=== PATIENT | female | born 1960 | race Caucasian/White ===

== ENCOUNTER 2023-01-21 10:09 | Outpatient (OUT) | payer OTHER, SELFPAY ==
--- NOTE | 2023-01-21 10:14 | CT_ITS ---
[address] [address] Patient Name: MALACHI FOSTER MRN: [id number] date: 1960 Sex: F Assigned Patient Location: CT Current Patient Location: CT Accession/Order Number: [id number] Exam Date: 01/21/2023 10:22 Report Date: 01/21/2023 11:35 At the request of: AGUILA LARA Procedure: CT lung screening low-dose EXAMINATION: CT lung screening low-dose HISTORY: Nicotine Dependence Cigarettes F17.219 COMPARISON: CT chest 01/16/2022 TECHNIQUE: Axial, Coronal, and Sagittal images were created without the administration of IV contrast material. Dose reduction techniques were achieved by using automated exposure control and/or adjustment of mA and/or kV according to patient size and/or use of iterative reconstruction technique. FINDINGS: LUNGS: Stable small focal area of stranding within lateral right lung apex favoring scarring. No suspicious nodules. Mild emphysematous changes bilaterally. PLEURA: No mass, effusion, or pneumothorax. VASCULATURE: No abnormality. CHESTER: No mass or pathologic adenopathy. MEDIASTINUM: No mass or pathologic adenopathy. CARDIAC: No enlargement, pericardial thickening, or significant calcification. AORTA: No aneurysm or dissection. CHEST WALL: No mass or axillary adenopathy BONES: No bone lesion or fracture. LIMITED ABDOMEN: No suspicious findings. Limited images of the upper abdomen. OTHER: Negative. CT/CT lung screening low-dose IMPRESSION: 1. Lung-RADS Category 1 Negative. No nodules and definitely benign nodules. Continue annual screening with LDCT in 12 months. Electronically authenticated by: GAMA MI Date: 01/21/2023 11:35
== END 2023-01-21 10:10 | disposition home or self-care (01) ==
LOC: CT 10:09
PROVIDERS: PCP Internal Medicine; Visit Provider Internal Medicine
DX: F17.219 Nicotine dependence, cigarettes, with unspecified nicotine-induced disorders (principal)
CPT/HCPCS: 71271

== ENCOUNTER 2023-05-16 21:10 | Outpatient (REF) | payer OTHER, SELFPAY ==
[2023-05-23 09:07] LABS: Age Gdln ACOG Testing Note (.); HPV Aptima Negative (Negative); IGP, Aptima HPV, rfx 16/18,45 Note (.)
== END 2023-05-16 21:11 | disposition home or self-care (01) ==
LOC: LAB 21:10
PROVIDERS: PCP Internal Medicine; Visit Provider Physician Assistant
DX: Z01.419 Encounter for gynecological examination (general) (routine) without abnormal findings (principal)
CPT/HCPCS: 87624; G0145

== ENCOUNTER 2023-05-26 14:21 | Outpatient (OUT) | payer OTHER, SELFPAY ==
--- NOTE | 2023-05-26 | MM_ITS ---
Patient Name: MALACHI FOSTER MR#: [id number] : 1960 Exam Date: 05/26/2023 Ordering Doctor: DR Adrian Florence . RADIOLOGY REPORT PROCEDURE: MM TOMOSYNTHESIS SCREENING BI COMPARISON: MG MAMM SCREEN 3D ARNOLDO CAD, 05/11/2022. MG MAMM SCREEN 3D ARNOLDO CAD, 04/28/2021. MG MAMM SCREEN ARNOLDO W CAD, 04/01/2020. MG MAMM ARNOLDO SCRN W CAD DIG, 03/26/2013. INDICATIONS: Screening for malignant neoplasm Calculator Name [facility] Breast Cancer Risk Assessment Tool 5 Year Breast Cancer Risk 1.70% Lifetime Breast Cancer Risk 7.40% Personal Breast Cancer No Personal Ovarian Cancer No Treatments None Family Cancers Sister with uterine cancer at age 68. LOCATION: [facility] BREAST COMPOSITION: Scattered areas fibroglandular density. FINDINGS: DIAGNOSTIC CATEGORY 1--NEGATIVE. RIGHT BREAST: No significant suspicious finding. No significant change has occurred. LEFT BREAST: No significant suspicious finding. No significant change has occurred. RECOMMENDATIONS: ROUTINE MAMMOGRAM AND CLINICAL EVALUATION IN 12 MONTHS. PLEASE NOTE: A NORMAL MAMMOGRAM DOES NOT EXCLUDE THE POSSIBILITY OF BREAST CANCER. A CLINICALLY SUSPICIOUS PALPABLE LUMP SHOULD BE BIOPSIED. Dictated by: Be Barber M.D. on 05/27/2023 at 13:58 Approved by: Be Barber M.D. on 05/27/2023 at 14:00
== END 2023-05-26 14:22 | disposition home or self-care (01) ==
LOC: MAMMO 14:21
PROVIDERS: PCP Internal Medicine; Visit Provider Obstetrics & Gynecology
DX: Z12.31 Encounter for screening mammogram for malignant neoplasm of breast (principal); Z80.8 Family history of malignant neoplasm of other organs or systems
CPT/HCPCS: 77063; 77067

== ENCOUNTER 2024-01-17 08:52 | Emergency (ER) | payer OTHER, SELFPAY ==
[2024-01-17] VITALS (19 sets, daily range): BP systolic 126–184; BP diastolic 73–93; PULSE 62–92; TEMP 36.9; O2SAT 91–96; BMI 26.5
--- NOTE | 2024-01-17 09:13 | XR_ITS ---
The [address] [address] Patient Name: MALACHI FOSTER MRN: [id number] date: 1960 Sex: F Assigned Patient Location: ER Current Patient Location: ER Accession/Order Number: [id number] Exam Date: 01/17/2024 09:33 Report Date: 01/17/2024 09:58 At the request of: YING STEELE Procedure: XR chest 1V EXAMINATION: XR chest 1V HISTORY: cp ; chest tightness, hypertension COMPARISON: XR chest 05/11/2022, CT chest 01/13/2023 FINDINGS: LUNGS: Mild haziness within left lung base compatible with known prominent pericardial fat pad. No acute infiltrates or mass. VASCULATURE: No increased pulmonary vasculature. PLEURA: No pneumothorax, effusion, or pleural thickening. CARDIAC: No cardiomegaly or cardiac silhouette abnormality. MEDIASTINUM: No visible mass or adenopathy. BONES: No fracture or visible bone lesion. OTHER: Negative. XR/XR chest 1V IMPRESSION: 1. No acute cardiopulmonary process. Stable chest. Electronically authenticated by: GAMA MI Date: 01/17/2024 09:58
--- NOTE | 2024-01-17 09:13 | ECG_ITS ---
The [facility] [place] Test Date: 2024-01-17 Pat Name: MALACHI FOSTER Department: Room: - Gender: Female Stem Maker: : 1960 Requested By: Clint Veras Order Number: [id number] Reading MD: JANETH CALLE Measurements Intervals [place] Rate: 77 P: 68 DE: 166 QRS: 0 QRSD: 64 T: 61 QT: 382 QTc: 414 Interpretive Statements 1100 Sinus rhythm 8102 Low QRS voltage in chest leads Non-Specific T wave inversion in aVL 9150 abnormal ECG Compared to ECG 04/04/2020 09:56:03 Myocardial infarct finding now present Electronically Signed On 01-18-2024 13:19:36 EDT by JANETH CALLE
--- OUTSIDE RECORDS SUMMARY | 2024-01-17 09:28 | XMS_ITS | CCD ---
Author Organization [facility] Care Team Providers Care Residential Living Assistant Name Role Phone TAMIA TORRES Unavailable Unavailable TAMIA TORRES Unavailable Unavailable Leon Kohli Admitting Unavailable Leon Kohli Attending Unavailable Marissa, Clint Primary Care Unavailable Leon Kohli Unavailable David Lemus Unavailable Clint Veras Unavailable MARISSA, DR BONE Consulting Unavailable MARISSA, DR BONE Primary Care Unavailable BALL, DR BONE Attending Unavailable MARISSA, DR BONE Admitting Unavailable KARASIK ., DR SCHMID Consulting Unavailabl e BALL, DR BONE Primary Care Unavailable KARASIK ., DR SCHMID Attending Unavailabl e KARASIK ., DR SCHMID Admitting Unavailabl e BALL, DR BONE Consulting Unavailable MARISSA, DR BONE Primary Care Unavailable MARISSA, DR BONE Attending Unavailable MARISSA, DR BONE Admitting Unavailable ZIEBANDREA, DR GAMA Hinson Consulting Unavailable MARISSA, DR BONE Consulting Unavailable MARISSA, DR BONE Primary Care Unavailable MARISSA, DR BONE Attending Unavailable MARISSA, DR BONE Admitting Unavailable ZIEBER, DR GAMA Hinson Consulting Unavailable MARISSA, DR BONE Primary Care Unavailable SAMSA ., AGUILA Attending Unavailable SAMSA ., AGUILA Admitting Unavailable SAMSA ., AGUILA Consulting Unavailable KARASIK ., DR SCHMID Consulting Unavailabl e BALL, DR BONE Primary Care Unavailable KARASIK ., DR SCHMID Attending Unavailabl e KARASIK ., DR SCHMID Admitting Unavailabl e ZIEBER, DR GAMA Hinson Consulting Unavailable MARISSA, DR BONE Primary Care Unavailable SAMSA ., AGUILA Attending Unavailable SAMSA ., AGUILA Admitting Unavailable SAMSA ., AGUILA Consulting Unavailable MARISSA, DR BONE Primary Care Unavailable MARISSA, DR BONE Attending Unavailable MARISSA, DR BONE Admitting Unavailable MARISSA, DR BONE Primary Care Unavailable MARISSA, DR BONE Attending Unavailable MARISSA, DR BONE Admitting Unavailable WEST, DR ELMER Parrish Consulting Unavailable MARISSA, DR BONE Primary Care Unavailable SAMSA ., AGUILA Attending Unavailable SAMSA ., AGUILA Admitting Unavailable SAMSA ., AGUILA Consulting Unavailable BALL, DR BONE Consulting Unavailable BALL, DR BONE Primary Care Unavailable BALL, DR BONE Attending Unavailable BALL, DR BONE Admitting Unavailable YADAV, ZIGGY Consulting Unavailable NEFCY, GIN Consulting Unavailable BALL, DR BONE Consulting Unavailable BALL, DR BONE Primary Care Unavailable BALL, DR BONE Attending Unavailable BALL, DR BONE Admitting Unavailable WEST, DR ELMER Parrish Consulting Unavailable KARASIK ., DR SCHMID Consulting Unavailabl e BALL, DR BONE Primary Care Unavailable KARASIK ., DR SCHMID Attending Unavailabl e KARASIK ., DR SCHMID Admitting Unavailabl e WEST, DR ELMER Parrish Consulting Unavailable ZIEBER, DR GAMA Hinson Consulting Unavailable NIMCO TRIMBLE Attending Unavailable MIKAL LEMUS Attending Unavailable CHAY ALEJANDRE Attending Unavailable MIKAL LEMUS Referring Unavailable Allergies Allergy Classification Reported Allergen(s) Allergy Type Date of Onset Reaction(s) Facility (1 source) buPROPion; Translations: [BUPROPION HCL] Drug Allergy [facility] Repository (3 sources) caffeine; Translations: [CAFFEINE] Drug Allergy [facility], Unknown, Unknown Reaction [facility] Repository (1 source) cyclobenzaprine; Translations: [CYCLOBENZAPRINE HCL] Drug Allergy 018 [facility] Repository (1 source) PROPOXYPHENE N-ACETAMINOPHEN; Translations: [PROPOXYPHENE N-ACETAMINOPHEN] Propensity to adverse reactions to drug (disorder) [facility] Repository (8 sources) cyclobenzaprine; Translations: [Flexeril] Drug Allergy Unknown [facility] Repository (2 sources) buPROPion Drug Allergy 016 WELLBUTRIN [facility] Repository (1 source) Darvocet-N 100 Drug allergy (disorder) [facility] Repository (2 sources) buPROPion Drug Allergy 024 Unknown, [facility] (2 sources) cyclobenzaprine Drug Allergy 017 CYCLOBENZAPRINE HCL Comment:Freetext Needs Updated., Hypertension, Comment:[facility] (1 source) Propoxyphene Drug Allergy 018 DARVOCET [employer] Other (1 source) Allergies Reconciled Propensity to adverse reactions Unknown [employer] Other (1 source) patient allergy list reviewed by nurse or physicia Propensity to adverse reactions 019 Comment:Done [employer] Other (1 source) Flexeril *MUSCULOSKELETAL THERAPY AGENTS* Propensity to adverse reactions Comment:Rash [employer] Other (1 source) Darvocet A500 *ANALGESICS - OPIOID* Propensity to adverse reactions Unknown [employer] Other (1 source) Acetaminophen Drug Allergy 024 Itching [facility] (1 source) Propoxyphene Drug Allergy 024 Itching [facility] (1 source) Darvocet A500 *ANALGESICS - OP Allergy to substance 024 Unknown Reaction [facility] (1 source) stimulants Propensity to adverse reactions 019 Unknown Reaction [facility] (1 source) sugar Propensity to adverse reactions 019 Unknown Reaction [facility] Medications Current Medications Medication Drug Class(es) Dates Sig (Normalized) Sig (Original) aspirin 81 mg chewable tablet (8 sources) Platelet Aggregation Inhibitor, Nonsteroidal Anti-inflammatory Drug Start: 06-18-2019 take 81 mg by mouth once daily Aspirin Active 81 MG PO Daily June 18, 2019 1:00am take 1 tablet by supa th every twenty-four hours Aspirin 81 81 MG 1 tablet Orally Once a day Active Aspirin 81 Activ e atorvastatin 10 mg oral tablet (9 sources) HMG-CoA Reductase Inhibitor Start: 12-16-2023 take 10 mg by mouth once daily Atorvastatin Active 10 MG PO Daily December 16, 2023 12:00am Start: 06-23-2022 End: 12-16-2023 take 20 mg by mouth once daily Atorvastatin Discontinu ed 20 MG PO Daily June 23, 2022 1:00am December 16, 2023 11:27am take 1 tablet by supa th every twenty-four hours Atorvastatin Calcium 10 MG 1 tablet Orally Once a day Active Atorvastatin Sundeep cium Active lisinopril 5 mg oral tablet (13 sources) Angiotensin Converting Enzyme Inhibitor Start: 12-16-2023 take 5 mg by mouth once daily Lisinopril Active 5 MG PO Daily December 16, 2023 11:27am Start: 09-19-2023 End: 12-16-2023 take 1 tablet by mouth once daily Lisinopril Discontinued 0 .ROUTE .COMPLEX September 19, 2023 1:29pm December 16, 2023 11:27am TAKE 1 TABLET BY MOUTH EVERY DAY Start: 06-18-2019 End: 09-19-2023 take 5 mg by mouth once daily Lisinopril Discontinued 5 MG PO Daily June 18, 2019 1:00am September 19, 2023 1:29pm Lisinopril Not-T aking Lisinopril Activ e Completed/Discontinued Medications Medication Drug Class(es) Dates Sig (Normalized) Sig (Original) fluticasone propionate 0.05 mg/actuat metered dose nasal spray (1 source) Corticosteroid Start: 06-18-2019 End: 06-23-2022 Fluticasone Propionate (Flonase Allergy Relief) 50 mcg/actuation Clayton,Suspension Discontinued 2 SPRAY INTRANASAL Daily June 18, 2019 1:00am June 23, 2022 8:20am oxymetazoline hydrochloride 0.5 mg/ml nasal spray (1 source) Start: 06-18-2019 End: 06-18-2019 Oxymetazoline (Afrin (Oxymetazoline)) 0.05 % Clayton,Non-Aerosol Discontinued 2 SPRAY INTRANASAL Q12H June 18, 2019 1:00am June 18, 2019 2:05pm polysaccharide iron complex 150 mg oral capsule (1 source) Start: 06-18-2019 End: 06-23-2022 take 1 tablet by mouth every other day Polysaccharide Iron Complex Discontinued 1 TAB PO As Directed June 18, 2019 1:00am June 23, 2022 8:20am every other day Problems Active Problems Problem Classification Problem Date Documented Date Episodic/Chronic Acute bronchitis (1 source) Acute bronchitis; Translations: [Acute bronchitis due to other specified organisms] Episodic Administrative/social admission (1 source) Informing health memory care director of test result; Translations: [Person consulting for explanation of examination or test findings] Episodic Anxiety disorders (3 sources) Generalized anxiety disorder; Translations: [Generalized anxiety disorder] 12-14-2023 Chronic Cancer of other female genital organs (2 sources) Carcinoma in situ of vulva; Translations: [Carcinoma in situ of vulva] Onset: 10-05-2017 Chronic Cancer; other and unspecified primary (1 source) Personal history of in-situ neoplasm of other site; Translations: [In situ neoplasm] Episodic Chronic obstructive pulmonary disease and bronchiectasis (12 sources) Mucopurulent chronic bronchitis; Translations: [Mucopurulent chronic bronchitis] Onset: 06-16-2018 Chronic Deficiency and other anemia (1 source) Iron deficiency anemia; Translations: [Iron deficiency anemia, unspecified] Episodic Deficiency and other anemia (1 source) Anemia; Translations: [Anemia, unspecified] 06-08-2023 Episodic Diabetes mellitus without complication (2 sources) Impaired fasting glucose; Translations: [Impaired fasting glycemia] Episodic Disorders of lipid metabolism (7 sources) Pure hypercholesterolemia; Translations: [Pure hypercholesterolemia, unspecified] Onset: 04-27-2014 Chronic Essential hypertension (7 sources) Essential hypertension; Translations: [Essential (primary) hypertension] Chronic Genitourinary symptoms and ill-defined conditions (2 sources) Dysuria; Translations: [Dysuria] Resolved: 07-01-2020 Episodic Headache; including migraine (2 sources) Episodic tension-type headache; Translations: [Episodic tension-type headache, not intractable] Chronic Inflammatory diseases of female pelvic organs (1 source) Abscess of vulva; Translations: [Abscess of vulva] Episodic Menopausal disorders (2 sources) Menopausal symptom; Translations: [Symptomatic menopausal or female climacteric states] Onset: 02-26-2010 Chronic Mood disorders (1 source) Dysthymia; Translations: [Dysthymic disorder] Onset: 03-07-2016 Chronic Neoplasms of unspecified nature or uncertain behavior (2 sources) Neoplasm of uncertain behavior of colon; Translations: [Neoplasm of uncertain behavior of colon] Onset: 05-27-2019 Episodic Other and unspecified benign neoplasm (1 source) Benign neoplasm of descending colon Episodic Other congenital anomalies (1 source) Congenital spondylolysis of lumbosacral region; Translations: [Congenital spondylolysis, lumbosacral region] Onset: 06-14-2017 Chronic Other connective tissue disease (1 source) Fibromyalgia; Translations: [Fibromyalgia] Episodic Other connective tissue disease (2 sources) Radial styloid tenosynovitis; Translations: [Radial styloid tenosynovitis] Onset: 06-28-2017 Episodic Other connective tissue disease (1 source) Muscle pain; Translations: [Myalgia, other site] Episodic Other connective tissue disease (1 source) Tear of right rotator cuff; Translations: [Unspecified rotator cuff tear or rupture of right shoulder, not specified as traumatic] Episodic Other connective tissue disease (1 source) Enthesopathy of knee; Translations: [Other bursitis of knee, left knee] Episodic Other connective tissue disease (1 source) Medial epicondylitis of right humerus; Translations: [Medial epicondylitis, right elbow] Episodic Other connective tissue disease (1 source) Disorder of muscle; Translations: [Other specified disorders of muscle] Episodic Other female genital disorders (4 sources) Other specified noninflammatory disorders of vulva and perineum; Translations: [OTH SPEC NONINFLAMM D/O VULVA PERIN] Onset: 07-16-2022 Episodic Other lower respiratory disease (5 sources) Solitary pulmonary nodule; Translations: [SOLITARY PULMONARY NODULE] Onset: 09-30-2021 Episodic Other lower respiratory disease (3 sources) Nodule of lung; Translations: [Solitary pulmonary nodule] Episodic Other lower respiratory disease (1 source) Solitary nodule of lung; Translations: [Solitary pulmonary nodule] Episodic Other lower respiratory disease (1 source) Lung field abnormal; Translations: [Other nonspecific abnormal finding of lung field] Episodic Other nervous system disorders (7 sources) Chronic pain; Translations: [Other chronic pain] Chronic Other nervous system disorders (1 source) Other chronic pain Chronic Other nervous system disorders (2 sources) Meralgia paresthetica; Translations: [Meralgia paresthetica, unspecified lower limb] Chronic Other nervous system disorders (1 source) Carpal tunnel syndrome; Translations: [Carpal tunnel syndrome, right upper limb] Onset: 07-31-2018 Chronic Other nervous system disorders (1 source) Other acute postprocedural pain; Translations: [Other acute postprocedural pain] Onset: 11-03-2017 Episodic Other nervous system disorders (1 source) Paresthesia; Translations: [Paresthesia of skin] Episodic Other non-traumatic joint disorders (1 source) Arthralgia of the pelvic region and thigh; Translations: [Pain in left hip] Episodic Other nutritional; endocrine; and metabolic disorders (1 source) Obesity; Translations: [Obesity, unspecified] Chronic Other nutritional; endocrine; and metabolic disorders (1 source) Overweight; Translations: [Overweight] Episodic Other screening for suspected conditions (not mental disorders or infectious disease) (7 sources) Encounter for screening for malignant neoplasm of colon; Translations: [Encounter for screening mammogram for malignant neoplasm of breast] Onset: 04-23-2022 Episodic Other upper respiratory disease (1 source) Seasonal allergic rhinitis; Translations: [Other seasonal allergic rhinitis] Onset: 11-16-2016 Chronic Other upper respiratory infections (2 sources) Chronic frontal sinusitis; Translations: [Chronic frontal sinusitis] Onset: 04-24-2014 Chronic Other upper respiratory infections (1 source) Acute maxillary sinusitis; Translations: [Acute recurrent maxillary sinusitis] Episodic Peripheral and visceral atherosclerosis (7 sources) Intermittent claudication of bilateral lower limbs co-occurrent and due to atherosclerosis; Translations: [Atherosclerosis of mcgrath arteries of extremities with intermittent claudication, bilateral legs] Chronic Pleurisy; pneumothorax; pulmonary collapse (6 sources) Pleural effusion, not elsewhere classified; Translations: [Pleural effusion] Onset: 05-11-2022 Episodic Residual codes; unclassified (5 sources) Obstructive sleep apnea syndrome; Translations: [Obstructive sleep apnea (adult) (pediatric)] 12-14-2023 Chronic Residual codes; unclassified (2 sources) Obstructive sleep apnea (adult) (pediatric); Translations: [Obstructive sleep apnea (adult)(pediatric)] Chronic Residual codes; unclassified (1 source) Postmenopausal state; Translations: [Asymptomatic menopausal state] Episodic Spondylosis; intervertebral disc disorders; other back problems (9 sources) Spondylosis without myelopathy or radiculopathy, cervical region; Translations: [Lumbosacral spondylosis without myelopathy] Onset: 01-07-2015 Chronic Spondylosis; intervertebral disc disorders; other back problems (12 sources) Thoracic back pain; Translations: [Pain in thoracic spine] Onset: 06-28-2017 Episodic Sprains and strains (2 sources) Sprain of shoulder and upper arm; Translations: [Strain of unspecified muscle, fascia and tendon at shoulder and upper arm level, right arm, initial encounter] Episodic Substance-related disorders (10 sources) Nicotine dependence; Translations: [Nicotine dependence, cigarettes, uncomplicated] Onset: 01-01-2016 Chronic Thyroid disorders (1 source) Hypothyroidism; Translations: [Hypothyroidism, unspecified] Onset: 07-31-2018 Chronic Transient cerebral ischemia (1 source) Transient cerebral ischemia; Translations: [Transient cerebral ischemic attack, unspecified] Chronic Unclassified (3 sources) CONTACT W/AND (SUSP) EXPOS COVID-19; Translations: [CONTACT W/AND (SUSP) EXPOS COVID-19] Onset: 05-29-2022 Unclassified (1 source) Exposure to acute respiratory syndrome coronavirus 2; Translations: [Contact with and (suspected) exposure to COVID-19] Unclassified (1 source) History of disease caused by Severe acute respiratory syndrome coronavirus 2 (situation); Translations: [Personal history of COVID-19] Viral infection (1 source) Disease caused by 2019-nCoV; Translations: [COVID-19] Past or Other Problems Problem Classification Problem Date Documented Date Episodic/Chronic Abdominal pain (2 sources) Left lower quadrant pain; Translations: [Left lower quadrant pain] Onset: 01-21-2014 Resolved: 07-01-2020 Episodic Acute posthemorrhagic anemia (1 source) Acute posthemorrhagic anemia; Translations: [Acute posthemorrhagic anemia] Resolved: 06-14-2020 Episodic Benign neoplasm of uterus (1 source) Intramural leiomyoma of uterus; Translations: [Intramural leiomyoma of uterus] Onset: 01-14-2009 Episodic Coma; stupor; and brain damage (1 source) Somnolence; Translations: [Somnolence] Resolved: 07-01-2020 Episodic Headache; including migraine (1 source) Headache; Translations: [Headache, unspecified] Onset: 01-21-2014 Episodic Malaise and fatigue (2 sources) Malaise and fatigue; Translations: [Other malaise and fatigue] Onset: 03-07-2016 Resolved: 07-01-2020 Episodic Mycoses (1 source) Tinea corporis; Translations: [Tinea corporis] Onset: 03-20-2015 Episodic Nonspecific chest pain (2 sources) Chest pain; Translations: [Chest pain, unspecified] Onset: 04-27-2014 Episodic Other aftercare (1 source) Surgical follow-up; Translations: [Surgery follow-up examination] Onset: 06-18-2009 Episodic Other and unspecified benign neoplasm (1 source) 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; Translations: [Benign neoplasm of liver and biliary passages] Onset: 01-25-2009 Episodic Other bone disease and musculoskeletal deformities (1 source) Other specified disorders of bone density and structure, unspecified site; Translations: [[facility] D/O BONE DEN STRUCT UNS SITE] Onset: 05-13-2022 Episodic Other bone disease and musculoskeletal deformities (1 source) Bone density finding; Translations: [Other specified disorders of bone density and structure, unspecified site] Onset: 06-16-2018 Episodic Other circulatory disease (1 source) History of cerebrovascular accident without residual deficits; Translations: [Personal history of transient ischemic attack (TIA), and cerebral infarction without residual deficits] Resolved: 10-16-2019 Episodic Other connective tissue disease (1 source) Pain in limb; Translations: [Pain in left finger(s)] Onset: 05-25-2017 Episodic Other ear and sense organ disorders (1 source) Disorder of external ear; Translations: [Unspecified disorder of external ear] Onset: 03-28-2017 Episodic Other injuries and conditions due to external causes (1 source) History of fall; Translations: [History of falling] Resolved: 07-01-2020 Episodic Other lower respiratory disease (4 sources) Other nonspecific abnormal finding of lung field; Translations: [[facility] NONSPECIFIC ABN FIND LNG FIELD] Onset: 01-16-2022 Episodic Other lower respiratory disease (1 source) Dyspnea, unspecified; Translations: [DYSPNEA UNSPECIFIED] Onset: 10-21-2021 Episodic Other lower respiratory disease (1 source) Hemoptysis; Translations: [Hemoptysis] Onset: 01-22-2019 Episodic Other lower respiratory disease (1 source) Dyspnea; Translations: [Dyspnea, unspecified] Onset: 04-24-2014 Episodic Other non-traumatic joint disorders (5 sources) Pain in left hip; Translations: [PAIN IN LEFT HIP] Onset: 05-11-2022 Episodic Other non-traumatic joint disorders (1 source) Hand joint pain; Translations: [Pain in joint, hand] Onset: 03-20-2015 Episodic Other non-traumatic joint disorders (1 source) Arthralgia of the lower leg; Translations: [Pain in left knee] Onset: 01-21-2014 Episodic Other nutritional; endocrine; and metabolic disorders (2 sources) Body mass index 25-29 - overweight; Translations: [Body mass index 28.0-28.9, adult] Onset: 11-16-2016 Episodic Other nutritional; endocrine; and metabolic disorders (1 source) Abnormal weight gain; Translations: [Abnormal weight gain] Onset: 03-07-2016 Episodic Other skin disorders (1 source) Asteatosis cutis; Translations: [Xerosis cutis] Onset: 03-07-2016 Episodic Other skin disorders (1 source) Alopecia; Translations: [Nonscarring hair loss, unspecified] Onset: 03-07-2016 Episodic Residual codes; unclassified (1 source) Idiopathic sleep related non-obstructive alveolar hypoventilation; Translations: [Idiopathic sleep related nonobstructive alveolar hypoventilation] Resolved: 07-01-2020 Chronic Residual codes; unclassified (1 source) Asymptomatic menopausal state; Translations: [ASYMPTOMATIC MENOPAUSAL STATE] Onset: 05-13-2022 Episodic Residual codes; unclassified (2 sources) Tobacco user; Translations: [Nondependent tobacco use disorder] Onset: 04-24-2014 Episodic Superficial injury; contusion (2 sources) Contusion of right knee; Translations: [Contusion of right knee, initial encounter] Onset: 07-31-2018 Episodic Unclassified (1 source) CONTACT W/AND (SUSP) EXPOS COVID-19; Translations: [CONTACT W/AND (SUSP) EXPOS COVID-19] Onset: 05-27-2022 Results Test Name Value Interpretation Reference Range Facility HERPES SIMPLEX VIRUS (HSV) C ULTUREon 07-22-2022 HSV Culture/Type Comment Abnormal [facility] Comment on above: Result Comment: 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 Typing was confirmed by monoclonal antibody microscopic immunofluorescence. Performed By: #### H SVCUL #### [facility] [address] [place] [address] Dr. Jessica Sainz Covid-19 PCR (CVDTB)on SARS-CoV-2 (COVID-19) RNA JANICE+probe Ql (Unsp spec) Not detected Normal NOT DETECTED [facility] Comment on above: Result Comment: This test is not yet approved or cleared by the [place] FDA. When there are no FDA-approved or cleared tests available, and other criteria are met, FDA can make tests available under an emergency access mechanism called an Emergency Use Authorization (EUA). The EUA for this test is supported by the [employer] Worker of Health and Human Service's (HHS's) declaration that circumstances exist to justify the emergency use of in vitro diagnostics for the detection and/or diagnosis of the virus that causes COVID-19. This EUA will remain in effect (meaning this test can be used) for the duration of the COVID-19 declaration justifying emergency of IVDs, unless it is terminated or revoked by FDA (after which the test may no longer be used). When diagnostic testing is negative, the possibility of a false negative should be considered in the context of a patient's recent exposures and the presence of clinical signs and symptoms consistent with SARS-CoV-2. Performed By: #### [facility] #### [facility] [address] [place] [address] Dr. Jessica Sainz XR CSPINE 2_3 VIEWSon 2021 XR CSPINE 2_3 VIEWS EXAMINATION: XR CSPINE 2_3 VIEWS HISTORY: Cervical spondylosis without myelopathy COMPARISON: No relevant comparison available. FINDINGS: BONES: 3 mm retrolisthesis of C3 in relation to C4. Moderate spondylosis and facet osteoarthropathy DISC SPACES: Moderate multilevel disc space narrowing PARASPINOUS: Negative. No paraspinous abnormality is seen. OTHER: Negative. IMPRESSION: Moderate degenerative changes 3 mm retrolisthesis of C3 on C4 Electronically authenticated by: ELMER ANTOINE Date: 2022-05-16 11:55 Normal [facility] XR DEXA BONE DENSITYon 05-12 XR DEXA BONE DENSITY EXAMINATION: XR DEXA BONE DENSITY, 05/11/2022 3:37 PM EST HISTORY: Menopause present COMPARISON: DEXA bone densitometry 04/01/2020 TECHNIQUE: Dual-energy X-ray absorptiometry (DEXA) bone density study performed for the axial skeleton. FINDINGS: SPINE ANALYSIS: Average bone mineral density is 0.918 g/cm2. T-score (standard deviation relative to young adult mean): -2.2 . -5.9% change since prior study. HIP ANALYSIS: Lowest bone mineral density is within the femoral neck, 0.798 g/cm2. T-score (standard deviation relative to young adult mean): -1.7 . -0.2% change since prior study. IMPRESSION: [employer] Classification: Osteopenia - Moderate Fracture Risk Electronically authenticated by: GAMA MI Date: 2022-05-12 06:51 Normal [facility] MAMM SCREEN 3D ARNOLDO CADon 05-11-2022 MG MAMM SCREEN 3D ARNOLDO CAD Patient: CANDELARIA FOSTER Exam Date: 05/11/2022 : 1960 Gender:F Ordering : DR SHARMAINE CHAUDHARI . Admission #: [id number] Family : Order #: [id number] CLICK HERE TO VIEW EXAM RADIOLOGY REPORT PROCEDURE: MAMMOGRAM SCREENING 3D BILATERAL CAD COMPARISON: MG MAMM SCREEN ARNOLDO W CAD, 04/01/2020. MG MAMM SCREEN 3D ARNOLDO CAD, 04/28/2021. INDICATIONS: Screening mammography Calculator Name NCI Breast Cancer Risk Assessment Tool 5 Year Breast Cancer Risk 1.70% Lifetime Breast Cancer Risk 7.70% Personal Breast Cancer No Personal Ovarian Cancer No Treatments None Family Cancers None LOCATION: [facility] BREAST COMPOSITION: Scattered areas fibroglandular density. FINDINGS: DIAGNOSTIC CATEGORY 1--NEGATIVE. NO CHANGE FROM COMPARISON ASSESSMENT. Scattered benign-appearing lymph nodes are present. RIGHT BREAST: No significant suspicious finding. LEFT BREAST: No significant suspicious finding. RECOMMENDATIONS: ROUTINE MAMMOGRAM AND CLINICAL EVALUATION IN 12 MONTHS. PLEASE NOTE: A NORMAL MAMMOGRAM DOES NOT EXCLUDE THE POSSIBILITY OF BREAST CANCER. A CLINICALLY SUSPICIOUS PALPABLE LUMP SHOULD BE BIOPSIED. Dictated by: Elmer Antoine MD on 05/12/2022 at 08:54 Approved by: Elmer Antoine MD on 05/12/2022 at 08:59 Normal [facility] XR CHEST 2 Von 05-11-2022 XR CHEST 2 V EXAM: XR CHEST 2 V HISTORY: Pleural effusion . Follow-up study after thoracentesis. COMPARISON: 01/06/2022 TECHNIQUE: Upright PA and lateral chest x-ray FINDINGS: There is slight haziness at the left lung base with slight blunting of the costophrenic angle. This remains unchanged and may indicate some pleural and parenchymal scarring or a small residual effusion. A small amount of scarring is seen at the apices. No acute infiltrate, effusion or pneumothorax is otherwise identified. The heart is not enlarged and the vasculature is not distended. IMPRESSION: Haziness at the left lung base persists, which may be due to some pleural and parenchymal scarring or small residual effusion. An effusion is not readily identified in the lateral view. There is no evidence of a focal infiltrate or cardiac decompensation, and the overall appearance of the chest is unchanged. Electronically authenticated by: GIN DYSON Date: 2022-05-11 19:50 Normal [facility] XR HIP LT 2 3V W PELVISon XR HIP LT 2 3V W PELVIS EXAM: XR HIP LT 2 3V W PELVIS HISTORY: Pain of left hip joint COMPARISON: None. TECHNIQUE: AP view of the pelvis was obtained. AP and lateral views of the left hip was obtained. FINDINGS: There is mild bilateral, joint space narrowing with marginal spurring. No evidence of acute fracture or subluxation. IMPRESSION: Mild bilateral hip joint osteoarthritis. Electronically authenticated by: ZIGGY YADAV Date: 2022-05-11 18:[address] [facility] PAP ACOG PANEL 2: 30 to 65on 04-30-2022 . . Normal [facility] Comment on above: Result Comment: Perf ormed at: WB Performed By: #### [id number] #### [facility] [address] [address] [address] Jessica Sainz Age Gdln ACOG Testing 30-[address] [facility] Comment on above: Performed By: #### [id number] #### [facility] [address] [address] [address] Jessica Sainz DIAGNOSIS: Comment Normal [facility] Comment on above: Result Comment: NEGA TIVE FOR INTRAEPITHELIAL LESION OR MALIGNANCY. CELLULAR CHANGES ASSOCIATED WITH ATROPHY ARE PRESENT. Performed at: WB Performed By: #### [id number] #### [facility] [address] [address] [address] Jessica Sainz HPV Aptima Negative Normal Negative [facility] Comment on above: Result Comment: This nucleic acid amplification test detects fourteen high-risk HPV types (16,18,31,33,35,39,45,51,52,56,58,59,66,68) without differentiation. Performed at: =G Performed By: #### [id number] #### [facility] [address] [address] [address] Jessica Sainz HPV Genotype Reflex Comment Normal [facility] Comment on above: Result Comment: Crit eria not met, HPV Genotype not performed. Performed at: WB Performed By: #### [id number] #### [facility] [address] [place] [address] Dr. Jessica Sainz Methodology: Comment Normal [facility] Comment on above: Result Comment: This liquid based ThinPrep(R) pap test was screened with the use of an image guided system. Performed at: WB Performed By: #### [id number] #### [facility] [address] [place] [address] Dr. Jessica Sainz Note: Comment Normal [facility] Comment on above: Result Comment: The Pap smear is a screening test designed to aid in the detection of premalignant and malignant conditions of the uterine cervix. It is not a diagnostic procedure and should not be used as the sole means of detecting cervical cancer. Both false-positive and false-negative reports do occur. . Performed at: WB Performed By: #### [id number] #### [facility] [address] [place] [address] Dr. Jessica Sainz Performed by: Comment Normal [facility] Comment on above: Result Comment: Yi Osborn, Physical Science Professor (ASCP) Performed at: WB Performed By: #### [id number] #### [facility] [address] [place] [address] Dr. Jessica Sainz Specimen adequacy: Comment Normal [facility] Comment on above: Result Comment: Sati sfactory for evaluation. Endocervical component may not be distinguished in cases of atrophy. Performed at: WB Performed By: #### [id number] #### [facility] [address] [place] [address] CHEST WO CONon 01-17-2022 CT CHEST WO CON EXAMINATION: CT CHES T WO CON HISTORY: Lung field abnormal ; posterior left chest pain COMPARISON: CT chest 09/30/2021, chest x-ray 01/06/2022 TECHNIQUE: Axial, Coronal, and Sagittal images were created without the administration of IV contrast material. Dose reduction techniques were achieved by using automated exposure control and/or adjustment of mA and/or kV according to patient size and/or use of iterative reconstruction technique. FINDINGS: LUNGS: Mild emphysematous changes. Stable appearance of a few tiny nodules and areas of scarring. Small amount of soft tissue partially filling the left lateral and posterior costophrenic angles, likely residual atelectasis or scarring. PLEURA: Trace amount of residual left pleural fluid. VASCULATURE: No abnormality. CHESTER: No mass or adenopathy. MEDIASTINUM: No mass or adenopathy. CARDIAC: No enlargement or pericardial thickening. AORTA: No aneurysm or dissection. CHEST WALL: No mass or axillary adenopathy. BONES: No bone lesion or fracture. LIMITED ABDOMEN: No suspicious findings. Limited images of the upper abdomen. OTHER: Negative. IMPRESSION: 1. Blunting of left lateral costophrenic angle seen on recent chest x-ray corresponds to a small amount of residual left pleural fluid and associated atelectasis. Significant decrease in left pleural effusion compared to 09/30/2021. 2. Mild emphysematous changes. Electronically authenticated by: GAMA MI Date: 2022-01-17 09:[address] [facility] XR CHEST COMP MIN 4Von 01-07 XR CHEST COMP MIN 4V EXAMINATION: XR CHEST COMP MIN 4V HISTORY: Pleural effusion COMPARISON: 2021 TECHNIQUE: AP and lateral decubitus views FINDINGS: LUNGS: The right lung is clear. Blunting of the left lateral costophrenic angle. No significant pleural effusion is observed on decubitus view. VASCULATURE: No increased pulmonary vasculature. PLEURA: No pneumothorax, effusion, or pleural thickening. CARDIAC: No cardiomegaly or cardiac silhouette abnormality. MEDIASTINUM: No visible mass or adenopathy. BONES: No fracture or visible bone lesion. OTHER: Negative. IMPRESSION: chronic blunting of the left lateral costophrenic angle. No layering pleural effusion Electronically authenticated by: ELMER ANTOINE Date: 2022-01-07 07:18 Normal [facility] CBC AUTO DIFFon 12-08-2021 BASO # 0.1 103/ul Normal 0.0-0.[address] [facility] Comment on above: Performed By: #### C CBFS #### [facility] [address] [address] [address] Jessica Sainz Basophils/100 WBC (Bld) 1.7 % Normal 0.2-2.[address] [facility] Comment on above: Performed By: #### C CBFS #### [facility] [address] [place] [address] Dr. Jessica Sainz EO # 0.5 103/ul Normal 0.0-0.[address] [facility] Comment on above: Performed By: #### C CBFS #### [facility] [address] [place] [address] Dr. Jessica Sainz Eosinophils/100 WBC (Bld) 7.9 % Critically high 0.9-7.[address] [facility] Comment on above: Performed By: #### C CBFS #### [facility] [address] [place] [address] Dr. Jessica Sainz Erythrocyte distribution width (RBC) [Ratio] 13.9 % Normal 11.0-15.[address] [facility] Comment on above: Performed By: #### C CBFS #### [facility] [address] [place] [address] Dr. Jessica Sainz Hematocrit (Bld) [Volume fraction] 41.7 % Normal 36.0-48.[address] [facility] Comment on above: Performed By: #### C CBFS #### [facility] [address] [place] [address] Dr. Jessica Sainz Hemoglobin (Bld) [Mass/Vol] 13.0 g/dL Normal 12.0-16.[address] [facility] Comment on above: Performed By: #### C CBFS #### [facility] [address] [place] [address] Dr. Jessica Sainz IG # 0.01 10e3/ul Normal 0.00-0.[address] [facility] Comment on above: Performed By: #### C CBFS #### [facility] [address] [place] [address] Dr. Jessica Sainz IG % 0.2 % Normal 0.0-0.[address] [facility] Comment on above: Performed By: #### C CBFS #### [facility] [address] [place] [address] Dr. Jessica Sainz LYMPH # 1.5 103/ul Normal 1.2-3.[address] [facility] Comment on above: Performed By: #### C CBFS #### [facility] [address] [place] [address] Dr. Jessica Sainz Lymphocytes/100 WBC (Bld) 25.4 % Normal 20.5-60.[address] [facility] Comment on above: Performed By: #### C CBFS #### [facility] [address] [place] [address] Dr. Jessica Sainz MANUAL DIFF REQ NO Normal [facility] Comment on above: Performed By: #### C CBFS #### [facility] [address] [place] [address] Dr. Jessica Sainz MCH (RBC) [Entitic mass] 27.4 pg Normal 26.7-34.[address] [facility] Comment on above: Performed By: #### C CBFS #### [facility] [address] [place] [address] Dr. Jessica Sainz MCHC (RBC) [Mass/Vol] 31.2 g/dL Normal 29.9-35.[address] [facility] Comment on above: Performed By: #### C CBFS #### [facility] [address] [place] [address] Dr. Jessica Sainz MCV (RBC) [Entitic vol] 87.8 fL Normal 81.0-99.[address] [facility] Comment on above: Performed By: #### C CBFS #### [facility] [address] [place] [address] Dr. Jessica Sainz MONO # 0.5 103/ul Normal 0.3-0.[address] [facility] Comment on above: Performed By: #### C CBFS #### [facility] [address] [place] [address] Dr. Jessica Sainz Monocytes/100 WBC (Bld) 8.1 % Normal 1.7-12.[address] [facility] Comment on above: Performed By: #### C CBFS #### [facility] [address] [place] [address] Dr. Jessica Sainz NEUT # 3.3 103/ul Normal 1.4-6.5 [facility] Comment on above: Performed By: #### C CBFS #### [facility] [address] [address] [address] Jessica Sainz Neutrophils/100 WBC (Bld) 56.7 % Normal 43.0-75.[address] [facility] Comment on above: Performed By: #### C CBFS #### [facility] [address] [address] [address] Jessica Sainz Platelet mean volume (Bld) [Entitic vol] 9.7 fL Normal 9.5-13.[address] [facility] Comment on above: Performed By: #### C CBFS #### [facility] [address] [place] [address] Dr. Jessica Sainz PLT 266 103/ul Normal 150-[address] [facility] Comment on above: Performed By: #### C CBFS #### [facility] [address] [place] [address] Dr. Jessica Sainz RBC 4.75 106/ul Normal 4.20-5.40 [facility] Comment on above: Performed By: #### C CBFS #### [facility] [address] [place] [address] Dr. Jessica Sainz WBC 5.8 103/ul Normal 4.0-11.[address] [facility] Comment on above: Performed By: #### C CBFS #### [facility] [address] [place] [address] Dr. Jessica Sainz LIPID PROFILEon 12-08-2021 CHOL-HDL RATIO NORM SEE BELOW Normal [facility] Comment on above: Result Comment: 3.3 - 4.4 LOW RISK 4.4 - 7.1 AVERAGE RISK 7.1 - 11.0 MODERATE RISK >11.0 HIGH RISK Performed By: #### H SVCUL #### [facility] [address] [place] [address] Dr. Jessica Sainz Cholesterol [Mass/Vol] 208 mg/dL Critically high <=[address] [facility] Comment on above: Performed By: #### H SVCUL #### [facility] [address] [place] [address] Dr. Jessica Sainz Cholesterol in HDL [Mass/Vol] 63 mg/dL Critically high 40-[address] [facility] Comment on above: Performed By: #### H SVCUL #### [facility] [address] [address] [address] Jessica Sainz Cholesterol in LDL [Mass/Vol] 122.8 mg/dL Normal [facility] Comment on above: Performed By: #### H SVCUL #### [facility] [address] [address] [address] Jessica Sainz Cholesterol.total /Cholesterol in HDL [Mass ratio] 3.3 {ratio} Normal [facility] Comment on above: Performed By: #### H SVCUL #### [facility] [address] [address] [address] Jessica Sainz HDL NORMAL > or = 60 mg/dl - LO W CARDIOVASCULAR RISK <40 mg/dl - HIGH CARDIOVASCULAR RISK Normal [facility] Comment on above: Performed By: #### H SVCUL #### [facility] [address] [address] [address] Jessica Sainz LDL CALC NORMAL SEE BELOW Normal [facility] Comment on above: Result Comment: <100 mg/dl OPTIMAL 100 - 129 mg/dl NEAR OR ABOVE OPTIMAL 130 - 159 mg/dl BORDERLINE HIGH 160 - 189 mg/dl HIGH >190 mg/dl VERY HIGH Performed By: #### H SVCUL #### [facility] [address] [address] [address] Jessica Sainz Triglyceride [Mass/Vol] 111 mg/dL Normal <=150 [facility] Comment on above: Performed By: #### H SVCUL #### [facility] [address] [address] [address] Jessica Sainz VLDL CALC 22.2 mg/dL Normal [facility] Comment on above: Performed By: #### H SVCUL #### [facility] [address] [address] [address] Jessica Sainz PROF 14(COMP METB)on 022 Albumin [Mass/Vol] 4.0 g/dL Normal 3.4-5.[address] [facility] Comment on above: Performed By: #### H SVCUL #### [facility] [address] [address] [address] Jessica Sainz Albumin/Globulin [Mass ratio] 1.0 {ratio} Normal [facility] Comment on above: Performed By: #### H SVCUL #### [facility] [address] [address] [address] Jessica Sainz ALP [Catalytic activity/Vol] 111 U/L Normal 46-[address] [facility] Comment on above: Performed By: #### H SVCUL #### [facility] [address] [address] [address] Jesscia Sainz ALT [Catalytic activity/Vol] 21 U/L Normal 14-[address] [facility] Comment on above: Performed By: #### H SVCUL #### [facility] [address] [address] [address] Jessica Sainz Anion gap [Moles/Vol] 11.5 mmol/L Normal [facility] Comment on above: Performed By: #### H SVCUL #### [facility] [address] [address] [address] Jessica Sainz AST [Catalytic activity/Vol] 16 U/L Normal 15-[address] [facility] Comment on above: Performed By: #### H SVCUL #### [facility] [address] [address] [address] Jessica Sainz Bilirubin [Mass/Vol] 0.4 mg/dL Normal 0.2-1.0 [facility] Comment on above: Performed By: #### H SVCUL #### [facility] [address] [address] [address] Jessica Sainz Calcium [Mass/Vol] 9.2 mg/dL Normal 8.5-10.1 [facility] Comment on above: Performed By: #### H SVCUL #### [facility] [address] [address] [address] Jessica Sainz Chloride [Moles/Vol] 102 mmol/L Normal 98-107 [facility] Comment on above: Performed By: #### H SVCUL #### [facility] [address] [address] [address] Jessica Sainz CO2 [Moles/Vol] 29.8 mmol/L Normal 21.0-32.[address] [facility] Comment on above: Performed By: #### H SVCUL #### [facility] [address] [address] [address] Jessica Sainz Creatinine [Mass/Vol] 0.62 mg/dL Normal 0.55-1.02 [facility] Comment on above: Performed By: #### H SVCUL #### [facility] [address] [address] [address] Jessica Sainz EGFR-AF OMANI >60 Normal >=[address] [facility] Comment on above: Performed By: #### H SVCUL #### [facility] [address] [place] [address] Dr. Jessica Sainz EGFR-NON AF OMANI >60 Normal >=60 [facility] Comment on above: Performed By: #### H SVCUL #### [facility] [address] [address] [address] Jessica Sainz Globulin (S) [Mass/Vol] 4.2 g/dL Normal [facility] Comment on above: Performed By: #### H SVCUL #### [facility] [address] [place] [address] Dr. Jessica Sainz Glucose [Mass/Vol] 92 mg/dL Normal 74-106 [facility] Comment on above: Performed By: #### H SVCUL #### [facility] [address] [place] [address] Dr. Jessica Sainz Potassium [Moles/Vol] 4.3 mmol/L Normal 3.5-5.1 [facility] Comment on above: Performed By: #### H SVCUL #### [facility] [address] [place] [address] Dr. Jessica Sainz Protein [Mass/Vol] 8.2 g/dL Normal 6.4-8.2 [facility] Comment on above: Performed By: #### H SVCUL #### [facility] [address] [address] [address] Jessica Sainz Sodium [Moles/Vol] 139 mmol/L Normal 136-145 [facility] Comment on above: Performed By: #### H SVCUL #### [facility] [address] [address] [address] Jessica Sainz Urea nitrogen [Mass/Vol] 16.0 mg/dL Normal 7.0-18.[address] [facility] Comment on above: Performed By: #### H SVCUL #### [facility] [address] [address] [address] Jessica Sainz Urea nitrogen/Creatini ne [Mass ratio] 25.8 mg/mg Normal [facility] Comment on above: Performed By: #### H SVCUL #### [facility] [address] [place] [address] Dr. Jessica Sainz TSHon 12-08-2021 TSH 1.419 uIU/mL Normal 0.358-3.[address] [facility] Comment on above: Performed By: #### H SVCUL #### [facility] [address] [place] [address] Dr. Jessica Sainz VITAMIN D 25 OHon 12-08-2021 VIT D 25-OH 39.3 ng/mL Normal [facility] Comment on above: Performed By: #### V ITAD #### [facility] [address] [place] [address] Dr. Jessica Sainz VIT D RANGES SEE BELOW Normal [facility] Comment on above: Result Comment: <20 ng/mL Vit D deficient 20 - <30 ng/mL Vit D insufficient 30 - 100 ng/mL Vit D sufficient >100 ng/mL Potential Toxicity Performed By: #### V ITAD #### [facility] [address] [place] [address] Dr. Jessica Sainz ACID FAST SMEAR AND CXon Acid Fast Culture Negative Normal [facility] Comment on above: Result Comment: No a nolan fast bacilli isolated after 6 weeks. Performed By: #### H SVCUL #### [facility] [address] [place] [address] Dr. Jessica Sainz Acid Fast Smear Negative Normal [facility] Comment on above: Performed By: #### H SVCUL #### [facility] [address] [place] [address] Dr. Jessica Sainz AFB Specimen Processing Direct Inoculation Normal [facility] Comment on above: Performed By: #### H SVCUL #### [facility] [address] [place] [address] Dr. Jessica Sainz FUNGAL CULTUREon 11-10-2021 Fungus (Mycology) Culture Final report [facility] Comment on above: Performed By: #### C CBFS #### [facility] [address] [place] [address] Dr. Jessica Sainz Fungus Stain Final report [facility] Comment on above: Performed By: #### C CBFS #### [facility] [address] [place] [address] Dr. Jessica Sainz Result [address] [facility] Comment on above: Result Comment: JOJO/ Calcofluor preparation: no fungus observed. Performed By: #### C CBFS #### [facility] [address] [place] [address] Dr. Jessica Sainz Result Comment: No y east or mold isolated after 4 weeks. BODY FLUID CULTUREon 022 Anaerobic Culture, Extended Incubation Final report [facility] Comment on above: Performed By: #### H SVCUL #### [facility] [address] [place] [address] Dr. Jessica Sainz Body Fluid Culture, Sterile Final report Normal [facility] Comment on above: Performed By: #### H SVCUL #### [facility] [address] [place] [address] Dr. Jessica Sainz Result [address] [facility] Comment on above: Result Comment: No g rowth in 56 - 72 hours. Performed By: #### H SVCUL #### [facility] [address] [place] [address] Dr. Jessica Sainz Result Comment: No a naerobes recovered. No anaerobic growth after 14 days LAB DAVID MISC TESTon 022 Referral Lab Comment Normal [facility] Comment on above: Result Comment: [employer] Performed By: #### L CMISC #### [facility] [address] [place] [address] Dr. Jessica Sainz Referral Test Code or Mnemonic Comment Normal [facility] Comment on above: Result Comment: 2002 Performed By: #### L CMISC #### [facility] [address] [place] [address] Dr. Jessica Sainz Referral Test Name Comment Normal [facility] Comment on above: Result Comment: RHEU MATOID FACTOR Performed By: #### L CMISC #### [facility] [address] [place] [address] Dr. Jessica Sainz Referral Test Results Comment Normal [facility] Comment on above: Result Comment: Refe rence lab report sent via fax. Performed By: #### L CMISC #### [facility] [address] [place] [address] Dr. Jessica Sainz PH, BODY FLUIDon 10-15-2021 pH, Body Fluid 7.6 Normal Not Estab. [facility] Comment on above: Result Comment: The reference interval(s) and other method performance specifications have not been established for this body fluid. The test result must be integrated into the clinical context for interpretation. Performed By: #### B DYFLPH #### [facility] [address] [place] [address] Dr. Jessica Sainz AMYLASE, BODY FLUIDon 2021 Amylase [Catalytic activity/Vol] 40 U/L Normal [facility] Comment on above: Result Comment: ____ : BODY FLUID TYPE : AMYLASE : : : : : Lymph : 50 - 83 : : : : : Peritoneal : : : Fluid : 88 - 109 : : : : : Saliva : : : (Mixed Glands) : 71023 - 137620 : : : : . Gladys W, Cher V. Reference Intervals for Adults and Children 2008. Ninth Edition (V9.1) [employer], [facility]; [place]: December 2008. The method performance specifications have not been established for this test in body fluid. The test result should be integrated into the clinical context for interpretation. Performed By: #### H SVCUL #### [facility] [address] [place] [address] Dr. Jessica Sainz CELL COUNT BODY FLUIDon 09-25 Clarity, Serous Clear Normal Clear [facility] Comment on above: Performed By: #### C CBFS #### [facility] [address] [place] [address] Dr. Jessica Sainz Color, Serous Straw Normal [facility] Comment on above: Result Comment: [place] rless to Pale Yellow/Straw Performed By: #### C CBFS #### [facility] [address] [place] [address] Dr. Jessica Sainz Comments: Normal [facility] Comment on above: Performed By: #### C CBFS #### [facility] [address] [place] [address] Dr. Jessica Sainz Eosinophils/100 WBC (Bld) 8 % Normal Not Estab. [facility] Comment on above: Performed By: #### C CBFS #### [facility] [address] [place] [address] Dr. Jessica Sainz Lining Cells, Serous Normal [facility] Comment on above: Performed By: #### C CBFS #### [facility] [address] [place] [address] Dr. Jessica Sainz Lymphocytes/100 WBC (Bld) 27 % Normal Not Estab. [facility] Comment on above: Performed By: #### C CBFS #### [facility] [address] [place] [address] Dr. Jessica Sainz Macrophages, Serous 39 % Normal Not Estab. [facility] Comment on above: Performed By: #### C CBFS #### [facility] [address] [place] [address] Dr. Jessica Sainz Nucleated Cells, Serous 1586 /mm3 Critically high 0-499 [facility] Comment on above: Result Comment: Pleu ral Fluid, with <1000 Nucleated cells/uL has been associated with transudates while >1000 uL may be seen in exudates. Performed By: #### C CBFS #### [facility] [address] [place] [address] Dr. Jessica Sainz Polys, Serous 26 % Critically high 0-24 [facility] Comment on above: Performed By: #### C CBFS #### [facility] [address] [place] [address] Dr. Jessica Sainz RBC, Serous Rare Normal Not Estab. [facility] Comment on above: Performed By: #### C CBFS #### [facility] [address] [place] [address] Dr. Jessica Sainz GLUCOSE BODYFLUIDon 10-14-19 22 Glucose, Body Fluid 91 mg/dL Normal [facility] Comment on above: Result Comment: ____ : BODY FLUID TYPE : GLUCOSE : : : : : Amniotic Fluid : 45 - 76 : : : : : Bile, Clear : < 5 : : : : : Bile, Yellow : < 8 : : : : : Lymph : 48 - 200 : : : : : Nasal Secretion : < 10 : : : : : Pleural Fluid : 65 - 99 : : : : : Saliva : < 2 : : (Mixed Glands) : : : : : : Sweat : < 7 : : : : : Synovial Fluid : 65 - 99 : : : : : Tears : 76 - 288 : : : : . Cher Cid V. Reference Intervals for Adults and Children 2007. Ninth edition (V9.1) [facility]; [place]: December 2008. The reference intervals and other method performance specifications have not been established for this test. The test result should be integrated into the clinical context for interpretation. Performed By: #### B FGLUC #### [facility] [address] [place] [address] Dr. Jessica Sainz LACTIC ACID DEHYDROGENASE (L D), BODY FLUon 10-13-2021 LD, Body Fluid 220 IU/L Normal [facility] Comment on above: Result Comment: ____ : BODY FLUID TYPE : LDH : : : : : : Nonmalignant: < 60% : : : of the serum LDH : : Ascitic Fluid : Malignant: > 60% : : : of the serum LDH : : : : : Gastric Juice : < 35 : : : : : : Transudate: <200 : : Pleural Fluid : Exudate: >200 : : : : : Saliva : 113 - 609 : : (Mixed Glands) : : : : : : Synovial Fluid : <240 : : : : . Carrizozo W, Cher V. Reference Intervals for Adults and Children 2008. Ninth Edition (V9.1) [employer], [facility]; [place]: December 2008. The reference intervals and other method performance specifications have not been established for this test. The test result should be integrated into the clinical context for interpretation. Performed By: #### C CBFS #### [facility] [address] [place] [address] Dr. Jessica Sainz PROTEIN, TOTAL, BODY FLUIDon 10-13-2021 Protein, Body Fluid 4.4 g/dL Normal [facility] Comment on above: Result Comment: ____ : BODY FLUID TYPE : TOTAL PROTEIN : : : : : Amniotic Fluid : <0.4 : : : : : : Nonmalignant: <3.0 : : Ascitic Fluid : Malignant: >3.0 : : : : : Bile, Clear : <0.9 : : : : : Bile, Yellow : 0.2 - 0.6 : : : : : Lymph : 2.2 - 6.0 : : : : : Human Milk : 1.9 - 2.0 : : : : : Nasal Secretion : 0.1 - 3.5 : : : : : Pancreatic : 0.0 - 0.1 : : Juice : (post stimulation) : : : : : : Transudate: <0.3 : : Pleural Fluid : Exudate: >0.3 : : : : : Saliva : 0.1 - 0.2 : : (Mixed Glands) : : : : : : Synovial Fluid : <2.5 : : : : : Tears : 0.8 - 0.9 : : : : . Carrizozo W, Cher V. Reference Intervals for Adults and Children 2008. Ninth Edition (V9.1) [employer], [facility]; [place]: December 2008. The method performance specifications have not been established for this test in body fluid. The test result should be integrated into the clinical context for interpretation. Performed By: #### T PB #### [facility] [address] [place] [address] Dr. Jessica Sainz CYTOLOGYon 2021 SENT TO REF LAB [address] [facility] Comment on above: Performed By: #### C YTO #### [facility] [address] [address] [address] Jessica Sainz XR CHEST 1 Von 2021 XR CHEST 1 V EXAMINATION: XR CHES T 1 V HISTORY: Dyspnea COMPARISON: CT chest 09/30/2021 FINDINGS: LUNGS: Mild haziness within left lateral lung base. VASCULATURE: No increased pulmonary vasculature. PLEURA: Left pleural effusion. CARDIAC: No cardiomegaly or cardiac silhouette abnormality. MEDIASTINUM: No visible mass or adenopathy. BONES: No fracture or visible bone lesion. OTHER: Negative. IMPRESSION: 1. Blunting of left lateral costophrenic angle likely representing small amount of residual pleural fluid. 2. Trace amount of left basilar atelectasis. Electronically authenticated by: GAMA MI Date: 2021 10:58 Normal [facility] CT CHEST WO CONon 09-30-2021 CT CHEST WO CON EXAMINATION: CT CHES T WO CON HISTORY: Solitary nodule of lung , shortness of breath, cough, left scapular pain COMPARISON: CT chest 06/19/2021 TECHNIQUE: Axial, Coronal, and Sagittal images were created without the administration of IV contrast material. Dose reduction techniques were achieved by using automated exposure control and/or adjustment of mA and/or kV according to patient size and/or use of iterative reconstruction technique. FINDINGS: LUNGS: Several tiny nodules scattered within the lungs; stable. No new or suspicious nodules. No acute infiltrates. Mild emphysematous changes. PLEURA: Left pleural effusion, 3.2 cm in thickness. VASCULATURE: No abnormality. CHESTER: No mass or adenopathy. MEDIASTINUM: No mass or adenopathy. CARDIAC: No enlargement or pericardial thickening. AORTA: No aneurysm or dissection. CHEST WALL: No mass or axillary adenopathy. BONES: No bone lesion or fracture. LIMITED ABDOMEN: No suspicious findings. Limited images of the upper abdomen. OTHER: Negative. IMPRESSION: 1. Increase in size of the now large left pleural effusion. 2. Stable scattered small pulmonary nodules which are nonspecific. No overtly suspicious findings. Electronically authenticated by: GAMA MI Date: 2021-09-30 16:57 [facility] C[facility]N Telephone (GYNML) ---CANDELARIA FOSTER ([id number]) 1960 FDate Time Provider Department11/18/17 KARINA WILLIS (RN) GYNML During your visit today, we recorded the following information about you:Karina Willis, RN, RN 11/18/2017 11:56 AM SignedPatient 2 wks post op, Exam under anaesthesia, vulvar wide local excision by Calin. Patient called office reporting continuous odor from jatin area that she's hadentire post op period and even said she thinks she had this pre-op. Shedescribes odor as port a potty smell and stronger than she had before surgery.Denies fever, s/s of infection to surgical site, UTI sx, drainage/spotting.Denies pain.Will update medical team for review and adviseMary TREMAYNE Cheung.DIRECTORY OPERATOR 11/18/2017 1:04 PM SignedPatients commonly experience an odor following this procedure.She should continue to monitor and perform jatin care as directed postoperatively.If she experiences fever or is concerned over the weekend, she should call orgo to the ED.We can check with her next week and see if there is improvement.Jenna Cheung APRN.Abiel Willis, RN, RN 11/18/2017 1:25 PM AddendumPatient called and informed that this is a common experience. She understandsand agrees to continue to monitor and will go to ED if s/s of infection. Willcontinue to perform jatin care.Nano Marshall, RN, RN 11/22/2017 2:45 PM SignedPatient called to update office that she is doing well. Stated that the odoris a better. Stated that she is extremely itchy at night recently. Thinks itis from healing. Wondering if there is anything she can use in her sitz bath tohelp? Denies fever, chills and drainage.Allergies As of Date: 11/18/2017 Noted Allergy ReactionCAFFEINE 03/05/2016 5 - IntoleranceDARVOCET A500 (PROPOXYPHENE N-NAKUL*03/05/2016 9 - ItchingFLEXERIL (CYCLOBENZAPRINE HCL) 09/30/2017 14 - Other: See Comments Comments: Increase in blood pressure and pulseWELLBUTRIN (BUPROPION HCL) 03/05/2016 9 - ItchingDate Reviewed: 11/03/2017Reviewed by: Erick (Rn) JOHN Barrientos - Fully AssessedReason for Visit: patient concern [Other]Prescriptions as of 11/18/2017 Sig: ACETAMINOPHEN 500 MG TABLET Take 500 mg by mouth every 8 * DOCUSATE SODIUM 100 MG CAPSULE Take 1 capsule by mouth twice* IBUPROFEN 600 MG TABLET Take 1 tablet by mouth every * PROGESTERONE MICRONIZED (BULK* TESTOSTERONE MICRONIZED (BULK* DICLOFENAC SODIUM 75 MG TABLE* Take 75 mg by mouth once tracy* LIDOCAINE 5 % TOPICAL PATCH Apply 1 Patch as directed jie*Problem List As Of Date 11/18/2017 Noted Resolved Intercostal pain [R07.82] INVALID FOR* Mixed hyperlipidemia [E78.2] INVALID FOR* Abnormal stress test [R94.39] INVALID FOR* BRETT III (vulvar intraepithelial neoplasia III) *INVALID FOR* More... Status:Closed by JENNA CHEUNG CNP on 11/18/17 [facility] ANES Darek 11-03-2017 ANES POST HNO ID: [id number] thor: Delisa Henderson AService: AnesthesiologyAuthor Type: AnesthesiologistType: Anesthesia PostOpFiled: 11/03/2017 9:32 AMNote Text:POST ANESTHESIA EVALUATION NOTESERVICE DATE: 11/03/2017SERVICE TIME: 929DOB: 1960Vitals: 11/04/1807Temp: 36.7 ?C (98.1 ?F) 36 ?C (96.8 ?F) 11/04/1807P: 154/76 154/82 155/88 157/85 11/04/1807Pulse: 76 75 70 70 11/04/1807Resp: 19 15 17 14 11/04/1807SpO2: 100% 100% 96% 97%Validated Vital Signs: YesPOST ANES STATUS: No apparent anesthetic complications. The patient isappropriately hydrated with stable respiratory and cardiovascular status.Patient has safe and adequate airway control. The patient has appropriatepain relief and no significant post operative nausea or vomiting. Thepatient has achieved baseline mental status.Further assessment by Anesthesia Service: NoneOther Remarks:SIGNATURE: Delisa Henderson MD PATIENT NAME: Candelaria FosterDATE: November 03, 2017 : 9:31 AM PAGER/CONTACT #: [facility] ANES PREOPon 11-03-2017 ANES PREOP HNO ID: [id number] thor: Delisa Henderson AService: AnesthesiologyAuthor Type: AnesthesiologistType: Anesthesia PreOpFiled: 11/03/2017 8:03 AMNote Text:REGIONAL ANESTHESIOLOGY DAY OF SURGERY NOTEPATIENT NAME: Candelaria FosterMRN: [id number]: 1960Procedure(s) (LRB):VULVECTOMY PARTIAL SIMPLE (Left)Surgeon(s):Tamia TorresEstimated body mass index is 30.18 kg/m? as calculated from the following: Height as of 10/19/17: 157.5 cm (5' 2 ). Weight as of 10/19/17: 74.8 kg (165 lb).ASA Class: 2Adequate NPO status: YesAllergies:ALLERGIESAllerg en Reactions- Caffeine Intolerance- Darvocet A500 [Prop* Itching- Flexeril [Cyclobenz* Other: See Comments Increase in blood pressure and pulse- Wellbutrin [Bupropi* ItchingAirway Assessment: MP 2; Neck ROM: Limited Flexion and Extension; AirwayEvaluation: No significant abnormalitiesDentition: Teeth intactSymptoms of Sleep Apnea: DeniesMost recent lab results:Hemoglobin 14.4 10/19/2017Hematocrit 43.3 10/19/2017Potassium 4.6 10/19/2017Platelet Count 271 10/19/2017Creatinine 0.74 10/19/2017EKG:normal EKG, normal sinus rhythmVitals: 642BP: 147/79Pulse: 69Resp: 16Temp: 36.7 ?C (98.1 ?F)TempSrc: Temporal ArterySpO2: 95%Previous Anesthesia: No history of adverse event Family history ofanesthetic problems: NoneAdditional Physical Exam:Lungs: Lungs clear to auscultation. Good diaphragmatic excursion.Cardiac: Normal S1 and S2; no rubs, no murmurs and no gallopsAdditional pertinent findings: N/AOther Medical Problems/ Important Considerations:Denies chest pain and SOB with exertion.GERD well controlled with no positional symptoms.Chronic Beta Frantz medication administered within 24 hours: N/AAnesthetic risks, benefits, alternatives, personnel and consent discussed:YesPatient agrees to proceed: YesBlood Products: Will accept Blood/Blood ProductsAnesthetic Plan: General LMA; Standard ASA MonitorsPain Management Plan: ROOT ProtocolParenteral or Oralper Surgical ServiceEPIC Chart ReviewACTIVE PROBLEM LISTIntercostal PainMixed HyperlipidemiaAbnormal Stress TestVin Iii (Vulvar Intraepithelial Neoplasia Iii)PAST MEDICAL HISTORYDiagnosis Date- Anxiety- Arthritis- Back pain- Depression- Diverticulitis- Diverticulosis- H/O: hysterectomy- Headache- Herniated cervical disc- Smoking- Vulvar cancer (HCC)PAST SURGICAL HISTORYProcedure Laterality Date- CARDIAC CATH 03/26/16 Normal coronary arteries- HYSTERECTOMY HX- PAST SURGICAL HISTORY OF [place] Teeth Extraction- PAST SURGICAL HISTORY OF [facility] on scalpFAMILY HISTORYProblem Relation Age of Onset- Heart Father d. @ 42 of [place]- Heart Paternal Grandfather d. @ 45 of [place]- Heart Brother Cardiac Stent Placement- Heart Sister- Thyroid Mother- Cancer Mother SkinSocial History:Social HistorySubstance Use Topics- Smoking status: Current Every Day Smoker Packs/day: 0.50 Types: Cigarettes Start date: 10/17/1981- Smokeless tobacco: Never Used- Alcohol use 42.0 oz/week 28 Cans of Beer (12oz) per weekNo current facility-administered medications on file prior to encounter.Current Outpatient Prescriptions on File Prior to Encounter:Progesterone Micronized, Bulk, 100 % powdtestosterone micronized, bulk, 100 % powddiclofenac, EC, (VOLTAREN) 75 mg EC tablet Take 75 mg by mouth once daily.lidocaine (LIDODERM) 5 % Apply 1 Patch as directed every 24 hours.[facility]patient medications [facility] in [facility].I have interviewed and examined the patient. I have reviewed the medicalrecord and/or the pre-anesthesia evaluation, pertinent labs, and testresults.Significant changes in the patient's condition since the History andPhysical, not otherwise documented in primary service progress notes: NoThis contains updated information obtained within 48 hours ofSurgery/Procedure.SIGNSEPIDEH E: Mikal Ferrer CRNA PATIENT NAME: Candelaria FosterDATE: November 03, 2017 : 7:18 AM PAGER/CONTACT #:Attending Note:Batres findings confirmed. Patient examined. Discussed with the SWITCH ENGINEER andthe patient. Plan as outlined.ab Ta Henderson, Trell20178:03 AM [facility] BRIEF OP NOTon 11-03-2017 BRIEF OP NOT HNO ID: [id number] thor: Jorge Brennan: Gynecology OncologyAuthor Type: PhysicianType: Brief Op NoteFiled: 11/03/2017 8:24 AMNote Text:BRIEF OP NOTELOG ID: [id number]/Procedure Date: 11/03/2017Incision/Procedure Start Time: 8:04 AMIncision Close/Procedure End Time: 8:18 AMSurgeon(s)/Proceduralist(s ) and Sand Caster(s):Surgeon(s) and Role: * Tamia Torres - Primary * Rah Brennan - Fellow * Clair (Nemo) Emily - Resident - AssistingProcedure(s): Wide local excisionAnesthesia: Choice - Anesthesia ConsultFindings: 1 cm in AP dimension and 0.5 cm in left to right dimensionacetowhite lesion, left of the clitoris. Minimally acetowhite lesion onright perineal area, inferioright to the introitus.Estimated Blood Loss: 5 mlsSpecimens: periclitoral and right perinealComplications: NonePre-Op/Pre-Procedure Diagnosis: BRETT IIIPost-Op/Post-Procedure Diagnosis: BRETT III (vulvar intraepithelialneoplasia III) [D07.1]SIGNATURE: Rah Brennan MD PATIENT NAME: Candelaria FosterDATE: November 03, 2017 : 8:22 AM PAGER/CONTACT #: [facility] HISTORY PHYSICALon 8 HISTORY PHYSICAL HNO ID: [id number] thor: Clair Diaz (Res)Service: Gynecology OncologyAuthor Type: ResidentType: HANDPFiled: 11/03/2017 7:31 AMNote Text:UPDATED HISTORY AND PHYSICAL EXAMINATIONSERVICE DATE: 11/03/2017SERVICE TIME: 7:30 AMPHYSICAL EXAM MUST BE COMPLETED ON ADMISSIONThe History and Physical (completed in the past 30 days) has been reviewedand the patient has been examined. The contents accurately reflect thepatient's condition with the following additions or revisions since theHANDP was completed.Examination indicates no changes.This HANDP can be found in the Electronic Medical Record dated 10/20.SIGNATURE: Clair Diaz MD PATIENT NAME: Candelaria FosterDATE: November 03, 2017 : 7:30 AM PAGER: [phone] [facility] NURSING PROGon 11-03-2017 NURSING PROG HNO ID: [id number] thor: Elma Frazier (Rn), RNService: NursingAuthor Type: Registered NurseType: Nursing Progress NoteFiled: 11/03/2017 8:42 AMNote Text: Nursing Progress NotePatient Name: Candelaria FosterMRN: [id number] Location: [facility] OR POOL/[facility] OR POOL 0828 Pt arrived from OR and attached to PACU monitor. Assessmentcompleted see assessment section. No signs of bleeding noted.This note was completed by: Elma Frazier RN [facility] OPERATIVE NOon 11-03-2017 OPERATIVE NO HNO ID: [id number] thor: Thang Torres: Gynecology OncologyAuthor Type: PhysicianType: Operative ReportFiled: 11/04/2017 1:12 PMNote Text:OPERATIVE/PROCEDURE REPORTLOG ID: [id number]/PROCEDURE DATE: 11/03/2017INCISION/PROCEDURE START TIME: 8:04 AMINCISION CLOSE/PROCEDURE END TIME: 8:18 AMSURGEON(S)/PROCEDURALIST(S ) AND CHEMICAL ENGINEER(S):Surgeon(s) and Role: * Tamia Torres - Primary * Rah Brennan - Fellow * Clair (Nemo) Emily - Resident - AssistingNo Additional StaffSURGERY/PROCEDURE(S):Ex am under anaesthesia, vulvar wide local excision?ANESTHESIA: General?SURGERY/PROCEDURE DETAILS:?Operative Findings:Acetowhite changes in the right lower labial area about 5-10 mm,acetowhite changes in the left periclitoral area about 1 cm in size. Noother lesions.??Procedure Details:?The patient was taken to the operating room and was placed on theoperating room table, general anesthesia was initiated. She was thenplaced in dorsal lithotomy position, attention was made to avoid anypressure injuries, I evaluated the ankle and hip joints bilaterally afterpositioning the lower extremity, there was adequate mobility of the jointsand no evidence of pressure on the femoral or common peroneal nerves. Shewas then prepped and draped in a normal sterile fashion and a foleycatheter was inserted. Then the attention was directed to the vulvarlesion. An elliptical incision was made with 1 cm normal margins aroundthe lesion. The defect was closed with 2-0 vicryl in a transverse matrixfashion. Hemostasis was excellent. Similar procedure was performed on theother lesion.At the end of the operation sponge and needle counts and instrument countswere correct x2. The patient tolerated the procedure well and wastransferred to the recovery room after extubation.?Pre-Op/Pre-Proce dure Diagnosis: BRETT-3?Post-Op/Post-Procedure Diagnosis:?Same ??Estimated Blood Loss:?5?mls?Specimens:?Vulva r lesions x 2?Implantable Devices:?None?Drains:?None?C omplications: None?I performed the procedure with assistance.SIGNATURE: Tamia Torres MD PATIENT NAME: Candelaria FosterDATE: November 04, 2017 : 1:09 PM PAGER/CONTACT #: [facility] PLAN OF CAREon 11-03-2017 PLAN OF CARE HNO ID: [id number] thor: Rupesh (Smart Wire Grid)Dorinda: (none)Author Type: TechnicianType: Plan of CareFiled: 11/04/2017 9:27 AMNote Text:PHARMACY BEDSIDE DELIVERY SERVICEPatient Name: Candelaria FosterMRN: [id number] marked outpatient medications were filled and deliveredMedication ListSTART taking these medicationsdocusate sodium 100 mg capsuleCommonly known as: COLACETake 1 capsule by mouth twice daily.ibuprofen 600 mg tabletCommonly known as: MOTRINTake 1 tablet by mouth every 6 hours as needed for Pain.oxyCODONE IR 5 mg immediate release tabletCommonly known as: ROXICODONETake 1 tablet by mouth every 6 hours as needed for Pain for up to 7 days.CONTINUE taking these medicationsdiclofenac (EC) 75 mg EC tabletCommonly known as: VOLTARENlidocaine 5 %Commonly known as: LIDODERMProgesterone Micronized (Bulk) 100 % Powdtestosterone micronized (bulk) 100 % PowdTYLENOL EXTRA STRENGTH 500 mg tabletGeneric drug: acetaminophenYou might also be taking other medications not listed above. If you havequestions about any of your other medications, talk to the person whoprescribed them or your Primary Care Provider.Iveth Goddard (Smart Wire Grid)PAGER: [phone] 2017 9:27 AM [facility] PLAN OF CARE HNO ID: [id number] thor: Rupesh (Smart Wire Grid)Dorinda: (none)Author Type: TechnicianType: Plan of CareFiled: 11/03/2017 10:31 AMNote Text:Pharmacy Discharge Medication Service:This patient [facility]. Theprescriptions are currently being processed. A follow-up note will beentered once the prescriptions have been filled and delivered to thepatient. Please contact me with any questions or updates to the patient'sdischarge medications.Iveth Goddard (Net Washer)DCT Contact Info: [phone] [facility] PLAN OF CARE HNO ID: [id number] thor: Rupesh (Net Washer), Sohanervice: (none)Author Type: TechnicianType: Plan of CareFiled: 11/03/2017 10:31 AMNote Text:EQUIPMENT MONITOR PHOTOTYPESETTING BEDSIDE DELIVERY SURVEY1. Patient to use [facility] Bedside Delivery - YES2. If fax, patient would like us to fax prescriptions to [facility] a. Pharmacy: b. Location: c. Phone:3. Insurance card on file - YES4. Credit card for payment - N/A [facility] PT EDon 11-03-2017 PT ED HNO ID: [id number] thor: Kamla Zambrano (Rn), RNService: NursingAuthor Type: Registered NurseType: Patient EducationFiled: 11/03/2017 6:43 AMNote Text:PRE OP LEARNING ASSESSMENTPROCEDURE/SURGERY: SURGERY:READINESS TO LEARNCOGNITIVE ABILITY: Alert and orientedMOTIVATION TO LEARN: EagerFAMILY SUPPORT: Unable to assess - Family not presentPATIENT LEARNS BEST BY: Individual InstructionFACTORS AFFECTING LEARNING: NonePHYSICAL LIMITATIONS AFFECTING LEARNING: NoneElectronically Signed By: Kamla Zambrano RN In Department: [facility] OPERATING ROOM [facility] SURGICAL PATHOLOGYon 018 SURGICAL PATHOLOGY [facility]: [id number] Physician: TAMIA TORRES MD FINAL DIAGNOSIS1. Right peroneal lesion, biopsy (A) - Benign squamous epithelium, negativefor dysplasia.- Chronic spongiotic dermatitis. 2. Left periclitoral lesion, biopsy (B) - Acute and chronic inflammationwith focal ulceration (see comment). BY/korin 11/07/2017 COMMENTImmunostaining on B3 shows that epithelial cells adjacent to ulcer havenormal p53 expression pattern and are negative for p16, supporting theabove diagnosis. Arnoldo Melgar M.D. Ph.D.(Electronic Signature) SPECIME N SUBMITTEDA: RIGHT PERINEAL LESION B: LEFT JATIN-CLITORAL LESION CLINICAL DATAVULVAR INTRAEPITHELIAL NEOPLASIA IIIGROSS DESCRIPTIONA. Received in formalin designated right perineal lesion is an orientedellipse of skin that measures 1.0 x 0.4 x 0.1 cm. The skin surface ispink-carrillo and wrinkled. There is a suture that designates 12 o'clock. Thedeep margin is inked black. The specimen is inked as follows: 12-6 o'clock- blue; 6-12 - green. The specimen is serially sectioned from 12 o'clockto 6 o'clock to reveal carrillo cut surfaces. The specimen is entirely submittedas follows: A1 12 o'clock tip; A2 6 o'clock tip; A3 remaining skin with 3o'clock and 9 o'clock margins.B. Received in formalin designated left periclitoral lesion is anoriented ellipse of skin that measures 2.0 x 0.5 x 0.3 cm. The skin surfaceis pink-carrillo and wrinkled. There is a suture that designates 12 o'clock. Thespecimen is inked as follows: 12-6 o'clock - blue; 6-12 o'clock - green;deep margin is inked black. The specimen is serially sectioned from 12o'clock to 6 o'clock to reveal carrillo cut surfaces. The specimen is entirelysubmitted as follows: B1 12 o'clock, B2 6 o'clock tip; B3 and B4 remainingskin submitted in sequential order from 12 o'clock to 6 o'clock.WE/shayan 11/03/2017 Gross examination performed at [facility], [address] [place] [address] of Report: 11/08/2017Date of Procedure: 11/03/2017Date of Receipt: 11/03/2017Submitted by: TAMIA TORRES MDLocation: FVORDiagnostic interpretation performed at [facility], [address] [place] [address]. [facility] Comment on above: Performed By: #### P ATHS ####[id number] [place] [address] NURSING PROGon 10-26-2017 NURSING PROG HNO ID: [id number] thor: Bambi (Rn) ALLYSON Lyonervice: General SurgeryAuthor Type: Registered NurseType: Nursing Progress NoteFiled: 10/26/2017 4:26 PMNote Text:PACC Nurse Progress NoteHistory AND Physical:PACC Visit Date: 8-98-27Vrmkemhi HANDP Date: N/AED visit Date: N/AOutside HANDP Scanned Date: N/ALabs Within Last 6 Months:CBC: Date 10-19-17BMP/CMP: Date 4-61-02Mzcryza Within Last 12 Months:N/ACardiac Testing:EKG in last 12 Months: Yes: Date: 10-19-17, Comment: Confirmed in EPIC.Last Menstrual Period:LMP Date: UnknownPostmenopausal >1yr: Yes,S/P Hysterectomy: YesBMI Percentile (PEDS):N/ARisk Assessment:N/AAnesthesia Review:N/ANarrative:N/APre-o p Considerations:N/AChart Check:Juventino Lyon RNMay 2017 4:25 PM [facility] HOSPon 10-05-2017 HOSP Patient:Sumi Foster LMRN: Height:5' 2 (1.575 m)Weight:165 lb (74.844 kg)Outpatient Medications as of 11/03/17:acetaminophen (TYLENOL EXTRA STRENGTH) 500 mg tabletProgesterone Micronized, Bulk, 100 % powdtestosterone micronized, bulk, 100 % powddiclofenac, EC, (VOLTAREN) 75 mg EC tabletlidocaine (LIDODERM) 5 %Admission/Clinic Administered Medications as of 11/03/17:lidocaine 10 mg/mL (1 %) 1-2 mg injection (XYLOCAINE)lactated ringers infusionProblem List:Intercostal pain [R07.82]Mixed hyperlipidemia [E78.2]Abnormal stress test [R94.39]BRETT III (vulvar intraepithelial neoplasia III) [D07.1]Allergies:CaffeineDar vocet A500 [Propoxyphene N-Acetaminophen]Flexeril [Cyclobenzaprine Hcl]Wellbutrin [Bupropion Hcl]Date Verified: 11/03/17Lab ValuesLab Value Units Date High LowPOTA* 4.6 mmol/L 10/19/2017 5.1 3.7HEMA* 43.3 % 10/19/2017 46.0 36.0Progress Notes ([facility]):Aleena Cuenca (Rn), RN 10/31/2017 3:20 PM SignedPt is scheduled for vulvectomy with Dr. Torres on 11/03/17Pt calls today stating she had flare up of hemorrhoids this weekend and askingif okay to use preparation H. Instructed her that it would most likely be okayas long as it is not used on day of procedure and area is clean and dry.Advised I would discuss with DIRECTORY OPERATOR and call her backShe also states that at the same time, she developed an irritated vein on herclitoris. She said this happens off and on. She says it's sensitive but notpainful and that there is a slight odor.Denies bleeding, drainage, fever/chills.She stated she was going to try a sitz bath but wanted to know if there wasanything else she should do. [facility] to adviseVAleena prasad (Rn), RN 11/01/2017 4:33 PM SignedInformed pt of [facility]'s message to go ahead and use prep H but to call if odorcontinuesShe states hemorrhoids are improvingShe is unsure of vein on clitoris. Says it's still red but maybe slightlyimprovedShe will call tomorrow morning with update to see if she should be evaluatedbefore Karina Cameron (Rn), RN 11/02/2017 10:17 AM SignedPatient called office, stating hemorrhoids getting better, slight odor from periarea, clitoris area swollen and wants to know if she can use cortizone creamthere.Will update medical teamGalina Dowell (Light Technician) 11/02/2017 3:08 PM SignedWould not advise any creams in anticipation of procedure for tomorrowThNano Bentley (Rn), RN 11/02/2017 3:49 PM SignedLeft vm for patient in regards to message below.Progress Notes ([employer] [facility] [facility]):Aleena Cuenca (Rn), RN 10/26/2017 1:57 PM SignedLeft vm for pt to call office to discuss pre-op instructions prior to surgerywith Dr. Torres on 11/03/17Will Nimco Michaud RN 10/27/2017 4:00 PM SignedPatient returning call for pre op instructions.Procedure: VULVECTOMY PARTIAL SIMPLEPhysician: Tamia TorresLocation: [facility]: [phone] AND Time: 11/03/2017MEDICAL CLEARANCE: No CARDIAC CLEARANCE: NoPRE ADMISSION TESTIN10/19/17 AT: [facility]): [phone] FOLLOWING WAS EVALUATED Motivation To Learn: Interested Family/Significant Other Support: Unable to assess - Family not present Cognitive Ability: Alert and orientedPatient Learns Best By: Individual InstructionWritten Instruction - Hand-outsVerbal InstructionThe Following Influencing Factors Were Barriers To This Education Session: NoneThe Following Physical Limitations Were Barriers To This Education Session:NoneInstruction Provided To: PatientMEDICATION TO AVOID 7-14 DAYS PRIOR TO SURGERY: Advill Celebrex MotrinAggrenox Clinoril Naprosyn(naproxen)Agrylin NSAIDS Pepto-BismolAleve Ecotrin PersantineAlka-Tall Timbers Excedrin PlaquenilAnacin Heparin PlavixAscriptin Herbals PletalAspergum Ibuprofen TiclidBayer Indocin TrentalBextra Midol VanquishBufferin Gingko Biloba Vitamin E (MVI)MEDICATIONS YOU MAY SUBSTITUTEAnacin 3 Fioricet * Tylenol with codeine *Darvocet N 100 * Plenadol Percocet *Datril Sine-Aide TylenolExcedrin PM(*Denotes prescription needed to obtain these medications)Learning Topic:Pre/Post op instructions-specific to vulvar surgery.Instructions reviewed for arrival time, parking and admission.Specific topics reviewed and discussed with all surgical patients include:No eating, drinking, or smoking after midnight prior to surgery.Medications as prescribed by anesthesia or the physician.Bowel Prep as indicated. None required. Avoid carbonation and gassy foods.Review of information contained in surgical packetPre-operative and intra-operative general activities were reviewed including:Holding Area, assessments, surgical positioning, and Family Waiting Area.Written post-operative instructions were given to the patient regarding post-opactivity, pain control, symptoms to report.Post-operative instructions provided and reviewed with patient/family:ACTIVITY - No heavy lifting (>5-10 lbs), no pushing/pulling, OK to climb stairsDRIVING - No driving while taking prescription pain medication, or within 24hours of anesthesia, OK to ride in a car.DIET - Advance diet as tolerated and as ordered by MD, drink 8 glasses of watera day, eat a diet high in protein and fiber unless otherwise directed by MD.CATHETER - Will be inserted during surgery, you may go home with a catheter. Ifyou go home with a catheter you will have to come back to the office for avoiding trial, UTI symptoms reviewed and patient instructed to notify MD of anyof these symptoms.INCISION CARE - Keep incision clean and dry, deja to be removed 7-10 daysafter surgery, steristrips do not need to be removed by MD . Printedinstructions, specific to vulvar surgery, mailed to patient.BATHING - OK to shower after surgery unless otherwise directed by MD, no tubbaths.PAIN MEDICATION - IV pain medication after surgery, IV AEROSPACE CONTROL AND WARNING SYSTEMS if ordered by MD,discharged home with a prescription for PO pain medication, pain managementafter surgery, side effects of pain medication (including constipation,dizziness, drowsiness, and medication interactions).DVT PROPHYLAXIS - Early ambulation, SCDs, injectable anticoagulants (heparin,lovenox, etc)RESPIRATORY - Incentive spirometer, coughing/deep breathing exercises,ambulation.RETURN TO WORK - As directed by physician, please send any [facility] papers [facility] executive legal secretary.SYMPTOMS TO NOTIFY MD - Fever, chills, nausea, vomiting, increased or severepain, heavy vaginal bleeding, foul smelling vaginal drainage, pain or swellingin extremities.URGENT SYMPTOMS - Call 911 or go to ER if any shortness of breath, difficultybreathing, or chest pain.HOW TO CONTACT PHYSICIAN - Physician's office phone number given to patient, ifafter hours patient instructed to call contact acid plant operator helper and ask for the doctor parts counter salesperson.Patient and family have phone number to call 24 hours/day.Patient Evaluation: Verbalizes understandingPatient and/or family express understanding of upcoming surgery and theoperative process. Questions answered.Follow Up Plan: Follow up as neededSupplemental Material Given:Pre-operative teaching packet provided to the patient:INPATIENT/OUTPATIENT printed instructions; Post-operative instruction sheet,bowel prep instruction sheetFor questions contact: Tamia Torres's office at [phone] By Nimco Garza RN [facility] Vital Signs Date Time Vital Sign Value Performing Clinician Facility 12-16-2023 11:27-0400 Body height 157.48 cm [facility] 12-16-2023 11:27-0400 Body mass index (BMI) [Ratio] 27.3 kg/m2 [facility] 12-16-2023 11:27-0400 Body weight 67.75 kg [facility] 12-16-2023 11:27-0400 Diastolic blood pressure 81 mm[Hg] [facility] 12-16-2023 11:27-0400 Heart rate 75 /min [facility] 12-16-2023 11:27-0400 Respiratory rate 12 /min [facility] 12-16-2023 11:27-0400 Systolic blood pressure 143 mm[Hg] [facility] 12-14-2022 11:00-0400 Body height 156.21 cm Clint [employer] Other [facility] [employer] Other 12-14-2022 11:00-0400 Body mass index (BMI) [Ratio] 28.25 kg/m2 Clint Ball Other [employer] [facility] [employer] Other 12-14-2022 11:00-0400 Body weight 68.95 kg Clint Ball Other [employer] [facility] [employer] Other 12-14-2022 11:00-0400 Diastolic blood pressure 73 mm[Hg] Clint [employer] Other [employer] Other 12-14-2022 11:00-0400 Respiratory rate 12 /min Clint Veras Other [employer] Other 12-14-2022 11:00-0400 Systolic blood pressure 112 mm[Hg] Clint Veras Other [employer] Other Encounters Encounter Date Encounter Type Care Provider Facility Start: 12-16-2023 End: 12-16-2023 ambulatory [facility] Work Phone: Start: 12-16-2023 End: 12-16-2023 Encounter for general adult medical examination without abnormal findings [facility] Start: 12-16-2023 End: 12-16-2023 Patient encounter procedure [facility] Work Phone: Start: 12-07-2023 End: 12-07-2023 ambulatory CHAY ALEJANDRE Not Available Start: 11-07-2023 End: 11-07-2023 ambulatory MIKALBETTY LEMUS Not Available Start: 05-16-2023 End: 05-16-2023 ambulatory NIMCO TRIMBLE Not Available Start: 01-21-2023 End: 01-21-2023 ambulatory Clint Veras Other [employer] Other Start: 01-21-2023 Telephone encounter Clint Marissa [facility] Start: 12-15-2022 End: 12-15-2022 ambulatory Clint Veras Other [employer] Other Start: 12-15-2022 Telephone encounter Clint Veras [facility] Start: 12-14-2022 End: 12-14-2022 ambulatory Clint Veras Other [employer] Other Start: 12-14-2022 Encounter for genera l adult medical examination without abnormal findings Clint Veras [facility] Start: 12-14-2022 Periodic preventive med est patient 40-64yrs Clint Veras [facility] Start: 07-16-2022 End: 07-16-[address] SHARMAINE CHAUDHARI . [employer] Other Start: 07-16-2022 Telephone encounter Clint Mantilla [employer] Start: 06-27-2022 End: 07-13-[address] CLINT VERAS Facility:[facility] Start: 06-23-2022 End: 06-23-2022 ambulatory Leon Kohli Facility:[facility] Start: 06-22-2022 End: 06-22-2022 ambulatory Leon Kohli Other [employer] Other Start: 06-22-2022 Telephone encounter Leon Mantilla [facility] Start: 06-16-2022 End: 06-26-[address] CLINT VERAS Facility:[facility] Start: 06-08-2022 End: 06-08-2022 ambulatory David Lemus Other [employer] Other Start: 06-08-2022 Office outpatient ne w 45 minutes David Lemus [facility] Start: 05-27-2022 Gynecological examination normal Clint Veras Other [employer] Other Start: 05-27-2022 End: 05-27-[address] CLINT VERAS Facility:[facility] Start: 05-14-2022 End: 05-15-[address] CLINT VERAS Facility:[facility] Start: 05-11-2022 End: 05-12-[address] CLINT VERAS Facility:[facility] Start: 04-23-2022 End: 04-23-[address] SHARMAINE CHAUDHARI . Facility:[facility] Start: 02-22-2022 End: 02-22-2022 ambulatory Leon Kohli Other [employer] Other Start: 02-22-2022 Telephone encounter Leon Mantilla [employer] Start: 01-16-2022 End: 01-17-[address] GAMA [place] Facility:[facility] Start: 01-06-2022 End: 01-07-[address] ELMER ANTOINE Facility:[facility] Start: 12-10-2021 Encounter for genera l adult medical examination without abnormal findings DR CLINT VERAS [facility] Start: 12-08-2021 End: 12-09-[address] CLINT VERAS Facility:[facility] Start: 12-08-2021 End: 12-09-2021 Encounter for general adult medical examination without abnormal findings DR CLINT VERAS Facility:[facility] Start: 12-08-2021 Adult health examination Clint Veras Other [facility] [employer] [facility] Other Start: 2021 End: [address] GAMA [place] Facility:[facility] Start: 09-30-2021 End: 10-01-[address] CLINT VERAS Facility:[facility] Start: 11-03-2017 End: 11-03-2017 Ambulatory [facility] Procedures Date Procedure Procedure Detail Performing Clinician Start: 03-19-2020 Screening for malign ant neoplasm of breast Clint Veras Other Start: 10-28-2017 General examination of patient Clint Veras Other Start: 06-13-2017 Hypertension screening Clint Veras Other Depression screening Saige Veras Other Screening for malign ant neoplasm of breast Clint Veras Other Screening for osteoporosis B shamika Veras Other Plan of Treatment Date Care Activity Detail Author Comprehensive metabo lic 2000 panel - Serum or Plasma [facility] Immunizations Immunization Date Immunization Notes Care Provider Bandar sharma 09-03-2020 COVID-19 Vaccine Mejia ssen - Documentation Purposes Only Clint Veras Other [facility] Payers Date Payer Category Payer Unknown [id number] 2022 Unknown [id number] 1960 Unknown [id number] [id number] 1959 Unknown [id number] .[id number] 1959 Unknown [id number] 2.16.840.1.524629.3.579.2.593 1959 Unknown [id number] 2.16.840.1.518088.3.579.2.593 1959 Unknown [id number] 2.16.840.1.040161.3.579.2.593 1959 Unknown [id number] 2.16.840.1.380160.3.579.2.593 1959 Unknown [id number] 2.16.840.1.476270.3.579.2.593 1959 Unknown [id number] 2.16.840.1.144275.3.579.2.593 1959 Unknown [id number] 2.16.840.1.469304.3.579.2.593 1959 Unknown [id number] 2.16.840.1.473884.3.579.2.593 1959 Unknown [id number] 2.16.840.1.143788.3.579.2.593 1959 Unknown [id number] 2.16.840.1.232671.3.579.2.593 1959 Unknown [id number] 2.16.840.1.400728.3.579.2.593 1959 Unknown [id number] 2.16.840.1.245088.3.579.2.1259 1959 Unknown [id number] 2.16.840.1.851496.3.579.2.1259 1959 Unknown [id number] 2.16.840.1.855630.3.579.2.1259 1959 Unknown [id number] 2.16. 840.1.215172.19 1959 Unknown [id number] Private Health Insurance [facility] [id number] Self-pay Self Pay [id number] Social History Date Type Detail Facility Sex Assigned At [employer] Other Start: 06-23-2022 Tobacco smoking stat [facility] Smoker (finding) [facility] Start: 1960 Sex Assigned At Female F [facility] Evaluation note 01-21-2023 Note Date & Type Note Facility 01-21-2023 Evaluation note Encounter Date Diagnosis Assessment Notes Dec, Cigarette nicotine dependence without complication (ICD-10 - F17.210) LDCT lungs w/o suspicious nodules - 12/2022Dec, Mucopurulent chronic bronchitis (ICD-10 - J41.1) [facility] [id number] Other Evaluation note 12-14-2022 Note Date & Type Note Facility 12-14-2022 Evaluation note Encounter Date Diagnosis Assessment Notes Nov, Wellness examination (ICD-10 - Z00.00) Healthy diet and exercise. Reviewed age-appropriate preventive testing recommended. Nov, Mucopurulent chronic bronchitis (ICD-10 - J41.1) Instructed on smoking cessation Nov, Cigarette nicotine dependence without complication (ICD-10 - F17.210) This patient has been encouraged to quit tobacco use immediately. They are aware of the hazards associated with tobacco use, including but not limited to respiratory infections, vascular disease and cancers. Nov, Pure hypercholesterolemia (ICD-10 - E78.00) Instructed on diet and exercise with continued statin therapy.Discusse d the beneficial effects of lowering cholesterol in reducing the risk for cerebrovascular and cardiovascular disease. Nov, Primary hypertension (ICD-10 - I10) This patient is instructed to consume a healthy, low-fat, low-salt diet. They are also encouraged to continue exercise to achieve/maintain a normal BMI. Nov, TARA (obstructive sleep apnea) (ICD-10 - G47.33) This patient is aware of the benefits associated with TARA: With continued use, the patient reduces the risk for AL, CVA, HTN, cardiac dysrhythmias and sudden cardiac deaths.The patient is also aware of the association between TARA and morning headaches, daytime somnolence, fatigue and obesity, which also has been improved with continued use.The patient is compliant with treatment, wearing the equipment every night for greater than 4 hours.The patient is instructed to continue use of the CPAP for TARA treatment. Nov, IFG (impaired fasting glucose) (ICD-10 - R73.01) This patient is following a comprehensive diabetic treatment plan. They are checking their feet daily for calluses and nonhealing ulcers. They are being seen for yearly dilated eye examinations. Goals: SBP less than 130, LDL less than 100, FBS less than 140, AC and A1C less than 7%. They are checking their BS daily, will which are reviewed at the office visit. Continue regular routine monitoring of A1C,] Microalbumin, Dilated eye exam and Foot exam Nov, Pulmonary nodule (ICD-10 - R91.1) 24 month post PET/CT was due 08/2022 CT scheduled prior to Pulmonary visit Nov, Adenomatous polyp of descending colon (ICD-10 - D12.4) Repeat colonoscopy due 2026 No changes in appetitie or bowel habits No bleeding Plan repeat scope in 5years Nov, Atherosclerosis of mcgrath artery of both lower extremities with intermittent claudication (ICD-10 - I70.213) Inspect feet daily, walk daily. Continue ASA and Statin therapy [employer] Other History general Narrative - Reported 07-18-2022 Note Date & Type Note Facility 07-18-2022 History general N arrative - Reported Type Medical History hypertension Medical History hyperlipidemia Medical History fibromyalgia Surgical History hysterectomy Surgical History colonoscopy 07/18/22 [employer] Other History general Narrative - Reported 07-18-2022 Note Date & Type Note Facility 07-18-2022 History general N arrative - Reported Type Medical History hypertension Medical History hyperlipidemia Medical History fibromyalgia Surgical History hysterectomy Surgical History colonoscopy 07/18/22 Hospitalization History see surgical history [employer] Other Evaluation note 06-08-2022 Note Date & Type Note Facility 06-08-2022 Evaluation note Encounter Date Diagnosis Assessment Notes May, Cervical pain (ICD-10 - M54.2) Patients primary complaint today is left sided cervical/ thoracic numbness and tingling with pain radiating into her left upper extremity. Given her symptoms as well as degenerative changes shown on recent imaging, we discussed her symptoms could be consistent with a cervical radiculopathy. It was discussed she would need to proceed with conservative treatment, such as physical therapy, prior to obtaining further imaging however patient is hesitant and would like more time to consider this. We also discussed trialing the patient on given her widesprvarious medications that could help with her overall symptoms, however patient declines and states my body overreacts to all medications. Patient was instructed to call our office should she wish to pursue the above mentioned treatment options. We will follow up as needed. Anatomy of spine discussed in detail with patient in regards to patients condition. May, Thoracic back pain (ICD-10 - M54.6) May, Other chronic pain (ICD-10 - G89.29) May, Other Above note written by Rashaad Alejandre MA, Transportation Job Titles. Edited and approved by Dr. Daivd Lemus MD. Medical decision making shows a new problem to me with further workup planned or suggested with the potential for extensive treatment options that were considered with the most applicable given this patient's situation as noted above. Treatment options considered include a combination of physical therapy approaches, pharmacologic management, and interventional procedures. Those most applicable to the patient were discussed at this time. Risk of complications and/or morbidity and mortality is high given that acute and chronic pain poses a threat to life and bodily function if undertreated, poorly treated or with failure to maintain adequate treatment and timely followup. Given the serious and fluctuating nature of pain with extensive consideration for whenever pain changes, there always remains the possibility of prolonged functional impairment requiring constant patient reassessment and high-level medical decision making. The amount and complexity of data reviewed is high given that patient labs, radiology reports, and other test were obtained, reviewed and summarized as applicable from the physician portal and/or outside medical records. Pertinent positive and negative findings were considered in medical decision-making. [employer] Other Evaluation note 02-22-2022 Note Date & Type Note Facility 02-22-2022 Evaluation note Encounter Date Diagnosis Assessment Notes Jan, Screening for colon cancer (ICD-10 - Z12.11) [facility] [employer] [facility] Other Evaluation note Note Date & Type Note Facility Evaluation note No Information [facility] Other Evaluation note Note Date & Type Note Facility Evaluation note Diagnosis Onset Date Chronic bronchitis acute ELADIO (generalized anxiety disorder) acute Hypertension acute Nicotine addiction acute TARA (obstructive sleep apnea) acute Peripheral artery disease ac birdie Wellness examination noneact jason [facility] Work Phone: History general Narrative - Reported Note Date & Type Note Facility History general Narrative - Reported Type Medical History hypertension Medical History hyperlipidemia Medical History fibromyalgia Surgical History hysterectomy [id number] Other Summary Purpose Family History Relationship Condition Age at Onset Recorded Date/T vinnie Not Specified Graves' disease Unknown Ulcerative colitis Unknown Glaucoma Unknown Hypertension Unknown Basal cell carcinoma (BCC) Unknown father Myocardial infarction Unknown grandparent Myocardial infarction Unknown brother Hypertension Unknown History of coronary artery stent placement Unknown sister Deep vein thrombosis (DVT) Unknown Anxiety Unknown father Unknown Advance Directives Advance Directive Response Recorded Date/ Time Advance Directives No May 5:10pm Chief Complaint and Reason for Visit Chief Complaint Wellness Reason for Visit Chronic bronchitis ELADIO (generalized anxiety disorder) Hypertension Nicotine addiction TARA (obstructive sleep apnea) Peripheral artery disease Wellness examination Additional Source Comments INFORMATION SOURCE (unrecogn ized section and content) DATE CREATED AUTHOR 12/14/2017 [facility] DATE CREATED AUTHOR AUTHOR'S ORGANIZ ATION 06/23/2022 [facility] DATE CREATED AUTHOR AUTHOR'S ORGANIZ ATION 09/21/2022 [facility] DATE CREATED AUTHOR AUTHOR'S ORGANIZ ATION 12/08/2023 [facility] EPIC REASON FOR VISIT (unrecogniz ed section and content) MAIL PPWREF BY DR MARISSA Lewis UMBAR SPONDYLOSIS AND NUMBNESSClinical Acute IllnessCOLONOSCOPY REPORTTWIN COUNTY REGIONAL HEALTHCARELab ResultsNo Information Care Teams (unrecognized sec tion and content) Team Status: Active Member Role Status Dates Clint Veras DO Primary Care Provider Active Team Status: Inactive Member Role Status Dates Clint Veras DO Primary Care Provide r, Attending Provider Active Start: December 16, 2023 End: December 16, 2023 Goals (unrecognized section and content) Goals may be documented in a n alternate section FOR RECORDS PERTAINING TO PATIENTS WHO ARE OR HAVE BEEN ENROLLED IN A CHEMICAL DEPENDENCY/SUBSTANCEABUSE PROGRAM, SOME INFORMATION MAY BE OMITTED. This clinical summary was aggregated from multiple sources. Caution should be exercised in using it in the provision of clinical care. This summary normalizes information from multiple sources, and as a consequence, information in this document may materially change the coding, format and clinical context of patient data. In addition, data may be omitted in some cases. CLINICAL DECISIONS SHOULD BE BASED ON THE PRIMARY CLINICAL RECORDS. [employer] [facility]. provides no warranty or guarantee of the accuracy or completeness of information in this document.
--- NOTE | 2024-01-17 09:30 | ED_ITS ---
HPI - Chest Pain General Chief Complaint: Chest Pain Stated Complaint: HIGH BLOOD PRESSURE Time Seen by Provider: 01/17/24 09:11 Source: patient Mode of arrival: walk-in Limitations: no limitations History of Present Illness HPI narrative: The patient is coming to the ER with the back pain associated with the chest pain that started this morning at 7:45 AM, patient mentioned that she was already awake when this pressure and pain started she sat up but it did not help her pain. She went to the bathroom and took her blood pressure medication but she noted that the blood pressure was 200 systolic The patient denying any symptoms recently but when asked about stress she mentioned that she have a lot of stress recently as her mother The patient was emotional It was also noted that the patient have no shortness of breath no sweating she does not have any pain at this moment at the pain came on went away at least twice since 7: 45 spontaneously There was no chest pain or any dizziness at the moment in the ER Related Data Home Medications ?Medication ?Instructions ?Recorded ?Confirmed aspirin 81 mg tablet,delayed 81 mg PO DAILY 01/17/24 01/17/24 release (Adult Low Dose Aspirin) atorvastatin 20 mg tablet 20 mg PO DAILY 01/17/24 01/17/24 lisinopril 5 mg tablet 5 mg PO DAILY 01/17/24 01/17/24 Allergies Allergy/AdvReac Type Severity Reaction Status Date / Time acetaminophen Allergy Severe Rash Verified 01/17/24 09:08 [From Darvocet-N] bupropion [From Wellbutrin] Allergy Severe Rash Verified 01/17/24 09:08 cyclobenzaprine Allergy Severe Palpitation Verified 01/17/24 09:08 [From Flexeril] s propoxyphene Allergy Severe Rash Verified 01/17/24 09:08 [From Darvocet-N] Review of Systems ROS Status of ROS 10 or more systems reviewed and unremark able except as noted in history and below [facility] Medical History (Updated 01/17/24 @ 11:46 by Mackenzie Fay MD) COPD (chronic obstructive pulmonary disease) ?J44.9 - Chronic obstructive pulmonary disease, unspecified (ICD-10) Hypertension ?I10 - Essential (primary) hypertension (ICD-10) Exam Narrative Exam Narrative: Nurses notes and vital signs reviewed and patient is not hypoxic. General: Well-appearing and in no apparent distress. Skin: Warm, dry, no pallor noted. No rash. Head: Normocephalic, atraumatic. Neck: Supple, non-tender. Eye: Pupils are equal, round and EOMI. No scleral icterus. Ears, Nose, Mouth, and Throat: TM are clear, no nasal mucosal hypertrophy. Oral mucosa is moist, no posterior oropharynx erythema, uvula is mid-line Cardiovascular: Regular Rate and Rhythm without murmur, gallop or rub. Respiratory: No accessory muscle use or respiratory distress. Lungs are clear to auscultation, no wheezing, rales or rhonchi Chest Wall: no tenderness Back: No midline thoracic or lumbar vertebral tenderness. No CVA tenderness Musculoskeletal: normal ROM, no calf or popliteal tenderness, no lower extremity edema/swelling GI: Abdomen is soft, non-distended. Normal bowel sounds. No masses appreciated. No tenderness to palpation. No rebound, guarding, or rigidity noted. Neurological: A&O x4. No cranial nerve dysfunction observed. No truncal ataxia. Moves all extremities. Sensation intact. Psychiatric: Cooperative and interactive. Normal mood and affect. Constitutional Vital Signs, click to edit/add: Last Vital Signs Temp 98.5 F 01/17/24 08:56 Pulse 64 01/17/24 11:20 Resp 19 01/17/24 11:20 BP 147/77 H 01/17/24 11:30 Pulse Ox 93 L 01/17/24 11:20 O2 Del Method Room Air 01/17/24 08:56 Course Vital Signs Vital signs: Vital Signs Temperature 98.5 F 01/17/24 08:56 Pulse Rate 75 01/17/24 08:56 Respiratory Rate 16 01/17/24 08:56 Blood Pressure 183/93 H 01/17/24 08:56 Pulse Oximetry 96 01/17/24 08:56 Oxygen Delivery Method Room Air 01/17/24 08:56 Temperature 98.5 F 01/17/24 08:56 Pulse Rate 64 01/17/24 11:20 Respiratory Rate 19 01/17/24 11:20 Blood Pressure 147/77 H 01/17/24 11:30 Pulse Oximetry 93 L 01/17/24 11:20 Oxygen Delivery Method Room Air 01/17/24 08:56 MDM - Chest Pain MDM Narrative Medical decision making narrative: The patient EKG in the ER showing sinus rhythm with a heart rate of [address] elevation or depression no acute changes concerning for acute coronary syndrome Chest x-ray showed no acute pathology CT angio of the chest showed no acute pathology--- other chronic issues will be followed up with her primary care doctor including the lymph node ,follow up . The patient already had a CAT scan to be done next Tuesday as a follow-up for her chest with her pulmonary doctor The patient troponin repeated twice was negative CBC and chemistry showed no acute pathology as well The patient is to follow up with primary care physician in next 2-3 days or to return to the emergency department should any of the signs or symptoms worsen or new symptoms develop. The patient agrees with the following Diagnosis and Treatment plan and the patient will be discharged home. Lab Data Labs: Lab Results 01/17/24 01/17/24 Range/Units 09:31 11:05 WBC 5.0 (4.0-11.0) 10^3/uL RBC 4.46 (4.20-5.40) 10^6/uL Hgb 13.2 (12.0-16.0) g/dL Hct 40.4 (36.0-48.0) % MCV 90.6 (81.0-99.0) fL MCH 29.6 (26.7-34.0) pg MCHC 32.7 (29.9-35.2) g/dL RDW 12.6 (11.0-15.0) % Plt Count 223 (150-450) 10^3/uL MPV 10.5 (9.5-13.5) fL Neut % (Auto) 64.1 (43.0-75.0) % Lymph % (Auto) 26.1 (20.5-60.0) % [place] % (Auto) 7.0 (1.7-12.0) % Eos % (Auto) 1.8 (0.9-7.0) % Baso % (Auto) 0.8 (0.2-2.0) % Neut # (Auto) 3.2 (1.4-6.5) 10^3/uL Lymph # (Auto) 1.3 (1.2-3.8) 10^3/uL [place] # (Auto) 0.4 (0.3-0.8) 10^3/uL Eos # (Auto) 0.1 (0.0-0.7) 10^3/uL Baso # (Auto) 0.0 (0.0-0.1) 10^3/uL Abs Immat Gran (auto) 0.01 (0.00-0.03) 10^3/uL Imm/Tot Granulo (auto) 0.2 (0.0-0.5) % PT 9.8 (9.0-11.6) sec INR <0.93 Sodium 143 (136-145) mmol/L Potassium 4.0 (3.5-5.1) mmol/L Chloride 106 (98-107) mmol/L Carbon Dioxide 27.6 (21.0-32.0) mmol/L Anion Gap 13.4 BUN 15.0 (7.0-18.0) mg/dL Creatinine 0.63 (0.55-1.02) mg/dL Est GFR ( Amer) >60 (>=60) Est GFR (Non-Af Amer) >60 (>=60) BUN/Creatinine Ratio 23.8 Glucose 97 (74-106) mg/dL Calcium 9.0 (8.5-10.1) mg/dL Total Bilirubin 0.4 (0.2-1.0) mg/dL AST 28 (15-37) U/L ALT 25 (14-59) U/L Alkaline Phosphatase 106 (46-116) U/L Troponin I High Sens 5.6 5.8 (4.0-51.3) pg/mL Total Protein 7.0 (6.4-8.2) g/dL Albumin 3.5 (3.4-5.0) g/dL Globulin 3.5 g/dL Albumin/Globulin Ratio 1.0 Discharge Plan Discharge Stand Alone Forms: Portal Instructions Chief Complaint: Chest Pain Clinical Impression: Atypical chest pain Patient Disposition: Home, Self-Care Time of Disposition Decision: 11:45 Condition: Good Mode of Transportation: Private Vehicle Prescriptions / Home Meds: No Action atorvastatin 20 mg tablet 20 mg PO DAILY lisinopril 5 mg tablet 5 mg PO DAILY aspirin [Adult Low Dose Aspirin] 81 mg tablet,delayed release (DR/EC) 81 mg PO DAILY Print Language: Chadian Instructions: Chest Pain (DC) Referrals: Clint Veras DO [Primary Care Provider] - 1 week Discharge Date/Time: 01/17/24 12:07
[2024-01-17 09:38] LABS: Basophils Percent Auto 0.8 % (0.2-2.0); Eosinophils Absolute Auto 0.1 10^3/uL (0.0-0.7); Eosinophils Percent Auto 1.8 % (0.9-7.0); Hematocrit 40.4 % (36.0-48.0); Hemoglobin 13.2 g/dL (12.0-16.0); Immature Granulocytes Abs Auto 0.01 10^3/uL (0.00-0.03); Immature Granulocytes Pct Auto 0.2 % (0.0-0.5); Lymphocytes Absolute Auto 1.3 10^3/uL (1.2-3.8); Lymphocytes Percent Auto 26.1 % (20.5-60.0); Mean Corpuscular HGB Conc 32.7 g/dL (29.9-35.2); Mean Corpuscular Hemoglobin 29.6 pg (26.7-34.0); Mean Corpuscular Volume 90.6 fL (81.0-99.0); Mean Platelet Volume 10.5 fL (9.5-13.5); Monocytes Absolute Auto 0.4 10^3/uL (0.3-0.8); Neutrophils Absolute Auto 3.2 10^3/uL (1.4-6.5); Neutrophils Percent Auto 64.1 % (43.0-75.0); Platelet Count 223 10^3/uL (150-450); Red Blood Count 4.46 10^6/uL (4.20-5.40); Red Cell Distribution Width 12.6 % (11.0-15.0)
[2024-01-17] MEDS: NITROGLYCERIN 0.4 MG BOTTLE SL (09:40)
[2024-01-17 09:51] LABS: Prothrombin Time 9.8 sec (9.0-11.6)
[2024-01-17 09:53] LABS: INR <0.93
[2024-01-17 09:55] LABS: Alanine Aminotransferase 25 U/L (14-59); Albumin Level 3.5 g/dL (3.4-5.0); Alkaline Phosphatase 106 U/L (46-116); Anion Gap 13.4; Aspartate Amino Transferase 28 U/L (15-37); BUN Creatinine Ratio 23.8; Bilirubin Total 0.4 mg/dL (0.2-1.0); Carbon Dioxide 27.6 mmol/L (21.0-32.0); Chloride 106 mmol/L (98-107); Estimated GFR (African America >60 (>=60); Estimated GFR (Non-African Ame >60 (>=60); Globulin 3.5 g/dL; Glucose 97 mg/dL (74-106); Sodium 143 mmol/L (136-145); Troponin I High Sensitivity 5.6 pg/mL (4.0-51.3)
--- NOTE | 2024-01-17 10:10 | CT_ITS ---
The [address] [address] Patient Name: MALACHI FOSTER MRN: [id number] date: 1960 Sex: F Assigned Patient Location: ER Current Patient Location: ER Accession/Order Number: [id number] Exam Date: 01/17/2024 10:21 Report Date: 01/17/2024 11:13 At the request of: YING STEELE Procedure: CT angio chest EXAM: CT angio chest HISTORY: back pain and chest with thn COMPARISON: None. TECHNIQUE: Following the intravenous administration of 99 cc of Omnipaque 350, axial soft tissue and lung windows of the chest were performed with coronal and sagittal reformats. 3-D MIPS reconstructions were created and reviewed. CT dose reduction technique was used including Automated Exposure Control. Findings: The heart is nonenlarged. No pericardial effusion. The thoracic aorta is normal caliber. There is adequate opacification of the pulmonary arteries. No evidence of pulmonary embolism. The central airways are patent. No pneumothorax. No pleural effusion. No focal consolidation. Mild centrilobular emphysema. Minimal bilateral apical scarring. No enlarged mediastinal, left hilar, axillary or supraclavicular lymph nodes. Mildly enlarged right suprahilar lymph node. No aggressive sclerotic or lytic osseous lesions. CT/CT angio chest IMPRESSION: 1. No pulmonary embolism. 2. Mild emphysema. 3. Mildly enlarged right suprahilar lymph node. If indicated, suggest 3 month follow-up CT to assess for stability. Electronically authenticated by: JOSE KIRKLAND Date: 01/17/2024 11:13
[2024-01-17 11:30] LABS: Troponin I High Sensitivity 5.8 pg/mL (4.0-51.3)
== END 2024-01-17 12:07 | disposition home or self-care (01) ==
PROVIDERS: Emergency Provider Emergency Medicine; PCP Internal Medicine
DX: R07.89 Other chest pain (principal)
CPT/HCPCS: 36415; 71045; 71275; 80053; 84484; 85025; 85610; 93005; 99285; Q9967

== ENCOUNTER 2024-02-13 11:31 | Emergency (ER) | payer OTHER, SELFPAY ==
[2024-02-13 11:38] VITALS: BP 167/90; PULSE 81; TEMP 36.8; O2SAT 95; BMI 27.4
[2024-02-13 12:02] LABS: Basophils Absolute Auto 0.1 10^3/uL (0.0-0.1); Basophils Percent Auto 1.1 % (0.2-2.0); Eosinophils Absolute Auto 0.1 10^3/uL (0.0-0.7); Eosinophils Percent Auto 1.5 % (0.9-7.0); Hematocrit 42.3 % (36.0-48.0); Hemoglobin 13.8 g/dL (12.0-16.0); Immature Granulocytes Abs Auto 0.01 10^3/uL (0.00-0.03); Immature Granulocytes Pct Auto 0.2 % (0.0-0.5); Lymphocytes Absolute Auto 1.3 10^3/uL (1.2-3.8); Lymphocytes Percent Auto 27.2 % (20.5-60.0); Mean Corpuscular HGB Conc 32.6 g/dL (29.9-35.2); Mean Corpuscular Hemoglobin 29.5 pg (26.7-34.0); Mean Corpuscular Volume 90.4 fL (81.0-99.0); Mean Platelet Volume 10.2 fL (9.5-13.5); Monocytes Absolute Auto 0.3 10^3/uL (0.3-0.8); Monocytes Percent Auto 7.2 % (1.7-12.0); Neutrophils Percent Auto 62.8 % (43.0-75.0); Platelet Count 193 10^3/uL (150-450); Red Blood Count 4.68 10^6/uL (4.20-5.40); Red Cell Distribution Width 12.8 % (11.0-15.0); White Blood Count 4.7 10^3/uL (4.0-11.0)
--- OUTSIDE RECORDS SUMMARY | 2024-02-13 12:04 | XMS_ITS | CCD ---
Author Organization [facility] CliniSyoh Care Team Providers Care Unit Educator Name Role Phone TAMIA TORRES Unavailable Unavailable [...] buPROPion; Translations: [BUPROPION HCL] Drug Allergy AOF [facility] Repository (3 sources) caffeine; Translations: [CAFFEINE] Drug Allergy AOF, Unknown, Unknown Reaction [facility] Repository (1 source) cyclobenzaprine; Translations: [CYCLOBENZAPRINE HCL] [facility] PROPOXYPHENE N-ACETAMINOPHEN; Translations: [PROPOXYPHENE N-ACETAMINOPHEN] Propensity to adverse reactions to drug (disorder) [facility] Repository (8 sources) cyclobenzaprine; Translations: [Flexeril] Drug Allergy Unknown [facility] Repository (2 sources) buPROPion Drug Allergy 016 WELLBUTRIN [facility] Repository (1 source) Darvocet-N 100 Drug allergy (disorder) [facility] Repository (2 sources) buPROPion Drug Allergy 024 Unknown, [facility] (2 sources) cyclobenzaprine Drug Allergy 017 CYCLOBENZAPRINE HCL Comment:Freetext Needs Updated., Hypertension, Comment:[facility] (1 source) Propoxyphene Drug Allergy 018 DARVOCET [facility] Other (1 source) Allergies Reconciled Propensity to adverse reactions Unknown [facility] (1 source) patient allergy list reviewed by nurse or physicia Propensity to adverse reactions 019 Comment:Done [facility] Other (1 source) Flexeril *MUSCULOSKELETAL THERAPY AGENTS* Propensity to adverse reactions Comment:Rash [facility] Other (1 source) Darvocet A500 *ANALGESICS - OPIOID* Propensity to adverse reactions Unknown [facility] Other (1 source) Acetaminophen Drug Allergy 024 Itching [facility] (1 source) Propoxyphene Drug Allergy 024 Itching [facility] (1 source) Darvocet A500 *ANALGESICS - OP Allergy to substance 024 Unknown Reaction [facility] (1 source) stimulants Propensity to adverse reactions 019 Unknown Reaction [facility] (1 source) sugar Propensity to adverse reactions 019 Unknown Reaction [facility] Medications Current Medications Medication Drug Class(es) Dates [...] Fluticasone Propionate (Flonase Allergy Relief) 50 mcg/actuation Wayne,Suspension Discontinued 2 SPRAY INTRANASAL Daily June 18, 2019 1:00am June 23, 2022 8:20am oxymetazoline hydrochloride 0.5 mg/ml nasal spray (1 source) Start: 06-18-2019 End: 06-18-2019 Oxymetazoline (Afrin (Oxymetazoline)) 0.05 % Wayne,Non-Aerosol Discontinued 2 SPRAY INTRANASAL Q12H June 18, [...] Episodic Administrative/social admission (1 source) Informing health home care liaison of test result; Translations: [Person consulting for [...] and due to atherosclerosis; Translations: [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 Typing was confirmed by monoclonal antibody microscopic immunofluorescence. Performed By: #### H SVCUL #### [facility] [address] [place] [address] Dr. Jessica Sainz Covid-19 PCR (CVDTB)on SARS-CoV-2 (COVID-19) RNA JANICE+probe Ql (Unsp spec) Not detected Normal NOT DETECTED [facility] Comment on above: Result Comment: This test is not yet approved or cleared by the [place] FDA. When there are no FDA-approved or cleared tests available, and other criteria are met, FDA can make tests available under an emergency access mechanism called an Emergency Use Authorization (EUA). The EUA for this test is supported by the Instructional Design Consultant of Health and Human Service's (HHS's) declaration [...] consistent with SARS-CoV-2. Performed By: #### C [facility] #### [facility] [address] [place] [address] Dr. Jessica Sainz XR CSPINE 2_3 VIEWSon [...] ELMER ANTOINE Date: 2022-05-16 11:55 Normal [facility] XR DEXA BONE DENSITYon 05-12 XR DEXA [...] GAMA MI Date: 2022-05-12 06:51 Normal [facility] MAMM SCREEN 3D ARNOLDO CADon 05-11-2022 MG MAMM SCREEN 3D ARNOLDO CAD Patient: CANDELARIA FOSTER Exam Date: 05/11/2022 : 1960 Gender:F Ordering : DR SHARMAINE CHAUDHARI . Admission #: [id number] Family : Order #: [id number] CLICK HERE TO VIEW EXAM RADIOLOGY REPORT [...] Treatments None Family Cancers None LOCATION: [facility] BREAST COMPOSITION: Scattered areas fibroglandular density. FINDINGS: [...] MD on 05/12/2022 at 08:59 Normal [facility] XR CHEST 2 Von 05-11-2022 XR CHEST [...] GIN DYSON Date: 2022-05-11 19:50 Normal [facility] XR HIP LT 2 3V W PELVISon [...] by: ZIGGY YADAV Date: 2022-05-11 18:01 Normal [facility] PAP ACOG PANEL 2: 30 to 65on 04-30-2022 . . Normal [facility] Comment on above: Result Comment: Perf ormed at: WB Performed By: #### [id number] #### [facility] [address] [address] [address] Jessica Sainz Age Gdln ACOG Testing 30-65 Normal [facility] Comment on above: Performed By: #### [id number] #### [facility] [address] [address] [address] Jessica Sainz DIAGNOSIS: Comment Normal [facility] Comment on above: Result Comment: NEGA TIVE FOR INTRAEPITHELIAL LESION OR MALIGNANCY. CELLULAR CHANGES ASSOCIATED WITH ATROPHY ARE PRESENT. Performed at: WB Performed By: #### [id number] #### [facility] [address] [address] [address] Jessica Sainz HPV Aptima Negative Normal Negative [facility] Comment on above: Result Comment: This nucleic acid amplification test detects fourteen high-risk HPV types (16,18,31,33,35,39,45,51,52,56,58,59,66,68) without differentiation. Performed at: =G Performed By: #### [id number] #### [facility] [address] [address] [address] Jessica Sainz HPV Genotype Reflex Comment Normal [facility] Comment on above: Result Comment: Crit eria not met, HPV Genotype not performed. Performed at: WB Performed By: #### [id number] #### [facility] [address] [place] [address] Dr. Jessica Sainz Methodology: Comment Normal [facility] Comment on above: Result Comment: This liquid based ThinPrep(R) pap test was screened with the use of an image guided system. Performed at: WB Performed By: #### [id number] #### [facility] [address] [place] [address] Dr. Jessica Sainz Note: Comment Normal [facility] Comment on above: Result Comment: The Pap smear is a screening test designed to aid in the detection of premalignant and malignant conditions of the uterine cervix. It is not a diagnostic procedure and should not be used as the sole means of detecting cervical cancer. Both false-positive and false-negative reports do occur. . Performed at: WB Performed By: #### [id number] #### [facility] [address] [place] [address] Dr. Jessica Sainz Performed by: Comment Normal [facility] Comment on above: Result Comment: Yi Osborn, Metal Furrer (ASCP) Performed at: WB Performed By: #### [id number] #### [facility] [address] [place] [address] Dr. Jessica Sainz Specimen adequacy: Comment Normal [facility] Comment on above: Result Comment: Sati sfactory for evaluation. Endocervical component may not be distinguished in cases of atrophy. Performed at: WB Performed By: #### [id number] #### [facility] [address] [place] [address] CHEST WO CONon [...] by: GAMA MI Date: 2022-01-17 09:30 Normal [facility] XR CHEST COMP MIN 4Von 01-07 XR [...] ELMER ANTOINE Date: 2022-01-07 07:18 Normal [facility] CBC AUTO DIFFon 12-08-2021 BASO # 0.1 103/ul Normal 0.0-0.1 [facility] Comment on above: Performed By: #### C CBFS #### [facility] [address] [address] [address] Jessica Sainz Basophils/100 WBC (Bld) 1.7 % Normal 0.2-2.0 [facility] Comment on above: Performed By: #### C CBFS #### [facility] [address] [place] [address] Dr. Jessica Sainz EO # 0.5 103/ul Normal 0.0-0.7 [facility] Comment on above: Performed By: #### C CBFS #### [facility] [address] [place] [address] Dr. Jessica Sainz Eosinophils/100 WBC (Bld) 7.9 % Critically high 0.9-7.0 [facility] Comment on above: Performed By: #### C CBFS #### [facility] [address] [place] [address] Dr. Jessica Sainz Erythrocyte distribution width (RBC) [Ratio] 13.9 % Normal 11.0-15.0 [facility] Comment on above: Performed By: #### C CBFS #### [facility] [address] [place] [address] Dr. Jessica Sainz Hematocrit (Bld) [Volume fraction] 41.7 % Normal 36.0-48.0 [facility] Comment on above: Performed By: #### C CBFS #### [facility] [address] [place] [address] Dr. Jessica Sainz Hemoglobin (Bld) [Mass/Vol] 13.0 g/dL Normal 12.0-16.0 [facility] Comment on above: Performed By: #### C CBFS #### [facility] [address] [place] [address] Dr. Jessica Sainz IG # 0.01 10e3/ul Normal 0.00-0.03 [facility] Comment on above: Performed By: #### C CBFS #### [facility] [address] [place] [address] Dr. Jessica Sainz IG % 0.2 % Normal 0.0-0.5 [facility] Comment on above: Performed By: #### C CBFS #### [facility] [address] [place] [address] Dr. Jessica Sainz LYMPH # 1.5 103/ul Normal 1.2-3.8 [facility] Comment on above: Performed By: #### C CBFS #### [facility] [address] [place] [address] Dr. Jessica Sainz Lymphocytes/100 WBC (Bld) 25.4 % Normal 20.5-60.0 [facility] Comment on above: Performed By: #### C CBFS #### [facility] [address] [place] [address] Dr. Jessica Sainz MANUAL DIFF REQ NO Normal [facility] Comment on above: Performed By: #### C CBFS #### [facility] [address] [place] [address] Dr. Jessica Sainz MCH (RBC) [Entitic mass] 27.4 pg Normal 26.7-34.0 [facility] Comment on above: Performed By: #### C CBFS #### [facility] [address] [place] [address] Dr. Jessica Sainz MCHC (RBC) [Mass/Vol] 31.2 g/dL Normal 29.9-35.2 [facility] Comment on above: Performed By: #### C CBFS #### [facility] [address] [place] [address] Dr. Jessica Sainz MCV (RBC) [Entitic vol] 87.8 fL Normal 81.0-99.0 [facility] Comment on above: Performed By: #### C CBFS #### [facility] [address] [place] [address] Dr. Jessica Sainz MONO # 0.5 103/ul Normal 0.3-0.8 [facility] Comment on above: Performed By: #### C CBFS #### [facility] [address] [place] [address] Dr. Jessica Sainz Monocytes/100 WBC (Bld) 8.1 % Normal 1.7-12.0 [facility] Comment on above: Performed By: #### C CBFS #### [facility] [address] [place] [address] Dr. Jessica Sainz NEUT # 3.3 103/ul Normal 1.4-6.5 [facility] Comment on above: Performed By: #### C CBFS #### [facility] [address] [address] [address] Jessica Sainz Neutrophils/100 WBC (Bld) 56.7 % Normal 43.0-75.0 [facility] Comment on above: Performed By: #### C CBFS #### [facility] [address] [address] [address] Jessica Sainz Platelet mean volume (Bld) [Entitic vol] 9.7 fL Normal 9.5-13.5 [facility] Comment on above: Performed By: #### C CBFS #### [facility] [address] [place] [address] Dr. Jessica Sainz PLT 266 103/ul Normal 150-450 [facility] Comment on above: Performed By: #### C CBFS #### [facility] [address] [place] [address] Dr. Jessica Sainz RBC 4.75 106/ul Normal 4.20-5.40 [facility] Comment on above: Performed By: #### C CBFS #### [facility] [address] [place] [address] Dr. Jessica Sainz WBC 5.8 103/ul Normal 4.0-11.0 [facility] Comment on above: Performed By: #### C CBFS #### [facility] [address] [place] [address] Dr. Jessica Sainz LIPID PROFILEon 12-08-2021 CHOL-HDL RATIO NORM SEE BELOW Normal [facility] Comment on above: Result Comment: 3.3 - 4.4 LOW RISK 4.4 - 7.1 AVERAGE RISK 7.1 - 11.0 MODERATE RISK >11.0 HIGH RISK Performed By: #### H SVCUL #### [facility] [address] [place] [address] Dr. Jessica Sainz Cholesterol [Mass/Vol] 208 mg/dL Critically high <=200 [facility] Comment on above: Performed By: #### H SVCUL #### [facility] [address] [place] [address] Dr. Jessica Sainz Cholesterol in HDL [Mass/Vol] 63 mg/dL Critically high 40-60 [facility] Comment on above: Performed By: #### H SVCUL #### [facility] [address] [address] [address] Jessica Sainz Cholesterol in LDL [Mass/Vol] 122.8 mg/dL Normal [facility] Comment on above: Performed By: #### H SVCUL #### [facility] [address] [address] [address] Jessica Sainz Cholesterol.total /Cholesterol in HDL [Mass ratio] 3.3 {ratio} Normal [facility] Comment on above: Performed By: #### H SVCUL #### [facility] [address] [address] [address] Jessica Sainz HDL NORMAL > or = 60 mg/dl - LO W CARDIOVASCULAR RISK <40 mg/dl - HIGH CARDIOVASCULAR RISK Normal [facility] Comment on above: Performed By: #### H SVCUL #### [facility] [address] [address] [address] Jessica Sainz LDL CALC NORMAL SEE BELOW Normal [facility] Comment on above: Result Comment: <100 mg/dl OPTIMAL 100 - 129 mg/dl NEAR OR ABOVE OPTIMAL 130 - 159 mg/dl BORDERLINE HIGH 160 - 189 mg/dl HIGH >190 mg/dl VERY HIGH Performed By: #### H SVCUL #### [facility] [address] [address] [address] Jessica Sainz Triglyceride [Mass/Vol] 111 mg/dL Normal <=150 [facility] Comment on above: Performed By: #### H SVCUL #### [facility] [address] [address] [address] Jessica Sainz VLDL CALC 22.2 mg/dL Normal [facility] Comment on above: Performed By: #### H SVCUL #### [facility] [address] [address] [address] Jessica Sainz PROF 14(COMP METB)on 022 Albumin [Mass/Vol] 4.0 g/dL Normal 3.4-5.0 [facility] Comment on above: Performed By: #### H SVCUL #### [facility] [address] [address] [address] Jessica Sainz Albumin/Globulin [Mass ratio] 1.0 {ratio} Normal [facility] Comment on above: Performed By: #### H SVCUL #### [facility] [address] [address] [address] Jessica Sainz ALP [Catalytic activity/Vol] 111 U/L Normal 46-116 [facility] Comment on above: Performed By: #### H SVCUL #### [facility] [address] [address] [address] Jessica Sainz ALT [Catalytic activity/Vol] 21 U/L Normal 14-59 [facility] Comment on above: Performed By: #### H SVCUL #### [facility] [address] [address] [address] Jessica Sainz Anion gap [Moles/Vol] 11.5 mmol/L Normal [facility] Comment on above: Performed By: #### H SVCUL #### [facility] [address] [address] [address] Jessica Sainz AST [Catalytic activity/Vol] 16 U/L Normal 15-37 [facility] Comment on above: Performed By: #### H SVCUL #### [facility] [address] [address] [address] Jessica Sainz Bilirubin [Mass/Vol] 0.4 mg/dL Normal 0.2-1.0 [facility] Comment on above: Performed By: #### H SVCUL #### [facility] [address] [address] [address] Jessica Sainz Calcium [Mass/Vol] 9.2 mg/dL Normal 8.5-10.1 [facility] Comment on above: Performed By: #### H SVCUL #### [facility] [address] [address] [address] Jessica Sainz Chloride [Moles/Vol] 102 mmol/L Normal 98-107 [facility] Comment on above: Performed By: #### H SVCUL #### [facility] [address] [address] [address] Jessica Sainz CO2 [Moles/Vol] 29.8 mmol/L Normal 21.0-32.0 [facility] Comment on above: Performed By: #### H SVCUL #### [facility] [address] [address] [address] Jessica Sainz Creatinine [Mass/Vol] 0.62 mg/dL Normal 0.55-1.02 [facility] Comment on above: Performed By: #### H SVCUL #### [facility] [address] [address] [address] Jessica Sainz EGFR-AF TRINIDADIAN >60 Normal >=60 [facility] Comment on above: Performed By: #### H SVCUL #### [facility] [address] [place] [address] Dr. Jessica Sainz EGFR-NON AF TRINIDADIAN >60 Normal >=60 [facility] Comment on above: Performed By: #### H SVCUL #### [facility] [address] [address] [address] Jessica Sainz Globulin (S) [Mass/Vol] 4.2 g/dL Normal [facility] Comment on above: Performed By: #### H SVCUL #### [facility] [address] [place] [address] Dr. Jessica Sainz Glucose [Mass/Vol] 92 mg/dL Normal 74-106 [facility] Comment on above: Performed By: #### H SVCUL #### [facility] [address] [place] [address] Dr. Jessica Sainz Potassium [Moles/Vol] 4.3 mmol/L Normal 3.5-5.1 [facility] Comment on above: Performed By: #### H SVCUL #### [facility] [address] [place] [address] Dr. Jessica Sainz Protein [Mass/Vol] 8.2 g/dL Normal 6.4-8.2 [facility] Comment on above: Performed By: #### H SVCUL #### [facility] [address] [address] [address] Jessica Sainz Sodium [Moles/Vol] 139 mmol/L Normal 136-145 [facility] Comment on above: Performed By: #### H SVCUL #### [facility] [address] [address] [address] Jessica Sainz Urea nitrogen [Mass/Vol] 16.0 mg/dL Normal 7.0-18.0 [facility] Comment on above: Performed By: #### H SVCUL #### [facility] [address] [address] [address] Jessica Sainz Urea nitrogen/Creatini ne [Mass ratio] 25.8 mg/mg Normal [facility] Comment on above: Performed By: #### H SVCUL #### [facility] [address] [place] [address] Dr. Jessica Sainz TSHon 12-08-2021 TSH 1.419 uIU/mL Normal 0.358-3.740 [facility] Comment on above: Performed By: #### H SVCUL #### [facility] [address] [place] [address] Dr. Jessica Sainz VITAMIN D 25 OHon 12-08-2021 VIT D 25-OH 39.3 ng/mL Normal [facility] Comment on above: Performed By: #### V ITAD #### [facility] [address] [place] [address] Dr. Jessica Sainz VIT D RANGES SEE BELOW Normal [facility] Comment on above: Result Comment: <20 ng/mL Vit D deficient 20 - <30 ng/mL Vit D insufficient 30 - 100 ng/mL Vit D sufficient >100 ng/mL Potential Toxicity Performed By: #### V ITAD #### [facility] [address] [place] [address] Dr. Jessica Sainz ACID FAST SMEAR AND CXon Acid Fast Culture Negative Normal [facility] Comment on above: Result Comment: No a nolan fast bacilli isolated after 6 weeks. Performed By: #### H SVCUL #### [facility] [address] [place] [address] Dr. Jessica Sainz Acid Fast Smear Negative Normal [facility] Comment on above: Performed By: #### H SVCUL #### [facility] [address] [place] [address] Dr. Jessica Sainz AFB Specimen Processing Direct Inoculation Normal [facility] Comment on above: Performed By: #### H SVCUL #### [facility] [address] [place] [address] Dr. Jessica Sainz FUNGAL CULTUREon 11-10-2021 Fungus (Mycology) Culture Final report [facility] Comment on above: Performed By: #### C CBFS #### [facility] [address] [place] [address] Dr. Jessica Sainz Fungus Stain Final report [facility] Comment on above: Performed By: #### C CBFS #### [facility] [address] [place] [address] Dr. Jessica Sainz Result 1 Comment Normal [facility] Comment on above: Result Comment: JOJO/ Calcofluor preparation: no fungus observed. Performed By: #### C CBFS #### [facility] [address] [place] [address] Dr. Jessica Sainz Result Comment: No y east or mold isolated after 4 weeks. BODY FLUID CULTUREon 022 Anaerobic Culture, Extended Incubation Final report [facility] Comment on above: Performed By: #### H SVCUL #### [facility] [address] [place] [address] Dr. Jessica Sainz Body Fluid Culture, Sterile Final report Normal [facility] Comment on above: Performed By: #### H SVCUL #### [facility] [address] [place] [address] Dr. Jessica Sainz Result 1 Comment Normal [facility] Comment on above: Result Comment: No g rowth in 56 - 72 hours. Performed By: #### H SVCUL #### [facility] [address] [place] [address] Dr. Jessica Sianz Result Comment: No a naerobes recovered. No anaerobic growth after 14 days LAB DAVID MISC TESTon 022 Referral Lab Comment Normal [facility] Comment on above: Result Comment: [employer] Performed By: #### L CMISC #### [facility] [address] [place] [address] Dr. Jessica Sainz Referral Test Code or Mnemonic Comment Normal [facility] Comment on above: Result Comment: 2002 Performed By: #### L CMISC #### [facility] [address] [place] [address] Dr. Jessica Sainz Referral Test Name Comment Normal [facility] Comment on above: Result Comment: RHEU MATOID FACTOR Performed By: #### L CMISC #### [facility] [address] [place] [address] Dr. Jessica Sainz Referral Test Results Comment Normal [facility] Comment on above: Result Comment: Refe rence lab report sent via fax. Performed By: #### L CMISC #### [facility] [address] [place] [address] Dr. Jessica Sainz PH, BODY FLUIDon 10-15-2021 pH, Body Fluid 7.6 Normal Not Estab. [facility] Comment on above: Result Comment: The reference interval(s) and other method performance specifications have not been established for this body fluid. The test result must be integrated into the clinical context for interpretation. Performed By: #### B DYFLPH #### [facility] [address] [place] [address] Dr. Jessica Sainz AMYLASE, BODY FLUIDon 2021 Amylase [Catalytic activity/Vol] 40 U/L Normal [facility] Comment on above: Result Comment: ____ : BODY FLUID TYPE : AMYLASE : : : : : Lymph : 50 - 83 : : : : : Peritoneal : : : Fluid : 88 - 109 : : : : : Saliva : : : (Mixed Glands) : [id number] - [id number] : : : : . Gladys W, Cher V. Reference Intervals for Adults and Children 2008. Ninth Edition (V9.1) [employer], [facility]; [place]: December 2008. The method performance specifications have not been established for this test in body fluid. The test result should be integrated into the clinical context for interpretation. Performed By: #### H SVCUL #### [facility] [address] [place] [address] Dr. Jessica Sainz CELL COUNT BODY FLUIDon 09-25 Clarity, Serous Clear Normal Clear [facility] Comment on above: Performed By: #### C CBFS #### [facility] [address] [place] [address] Dr. Jessica Sainz Color, Serous Straw Normal [facility] Comment on above: Result Comment: [place] rless to Pale Yellow/Straw Performed By: #### C CBFS #### [facility] [address] [place] [address] Dr. Jessica Sainz Comments: Normal [facility] Comment on above: Performed By: #### C CBFS #### [facility] [address] [place] [address] Dr. Jessica Sainz Eosinophils/100 WBC (Bld) 8 % Normal Not Estab. [facility] Comment on above: Performed By: #### C CBFS #### [facility] [address] [place] [address] Dr. Jessica Sainz Lining Cells, Serous Normal [facility] Comment on above: Performed By: #### C CBFS #### [facility] [address] [place] [address] Dr. Jessica Sainz Lymphocytes/100 WBC (Bld) 27 % Normal Not Estab. [facility] Comment on above: Performed By: #### C CBFS #### [facility] [address] [place] [address] Dr. Jessica Sainz Macrophages, Serous 39 % Normal Not Estab. [facility] Comment on above: Performed By: #### C CBFS #### [facility] [address] [place] [address] Dr. Jessica Sainz Nucleated Cells, Serous 1586 /mm3 Critically high 0-499 [facility] Comment on above: Result Comment: Pleu ral Fluid, with <1000 Nucleated cells/uL has been associated with transudates while >1000 uL may be seen in exudates. Performed By: #### C CBFS #### [facility] [address] [place] [address] Dr. Jessica Sainz Polys, Serous 26 % Critically high 0-24 [facility] Comment on above: Performed By: #### C CBFS #### [facility] [address] [place] [address] Dr. Jessica Sainz RBC, Serous Rare Normal Not Estab. [facility] Comment on above: Performed By: #### C CBFS #### [facility] [address] [place] [address] Dr. Jessica Sainz GLUCOSE BODYFLUIDon 10-14-19 22 Glucose, Body Fluid 91 mg/dL Normal [facility] Comment on above: Result Comment: ____ : [...] Children 2007. Ninth edition (V9.1) [facility]; [place]: December 2008. The reference intervals and other method performance specifications have not been established for this test. The test result should be integrated into the clinical context for interpretation. Performed By: #### B FGLUC #### [facility] [address] [place] [address] Dr. Jessica Sainz LACTIC ACID DEHYDROGENASE (L D), BODY FLUon 10-13-2021 LD, Body Fluid 220 IU/L Normal [facility] Comment on above: Result Comment: ____ : [...] : <240 : : : : . [place], [place] V. Reference Intervals for Adults and Children 2008. Ninth Edition (V9.1) [employer], [facility]; [place]: December 2008. The reference intervals and other method performance specifications have not been established for this test. The test result should be integrated into the clinical context for interpretation. Performed By: #### C CBFS #### [facility] [address] [place] [address] Dr. Jessica Sainz PROTEIN, TOTAL, BODY FLUIDon 10-13-2021 Protein, Body Fluid 4.4 g/dL Normal [facility] Comment on above: Result Comment: ____ : [...] - 0.9 : : : : . [place], [place] V. Reference Intervals for Adults and Children 2008. Ninth Edition (V9.1) [employer], [facility]; [place]: December 2008. The method performance specifications have not been established for this test in body fluid. The test result should be integrated into the clinical context for interpretation. Performed By: #### T PB #### [facility] [address] [place] [address] Dr. Jessica Sainz CYTOLOGYon 2021 SENT TO REF LAB 2021 Normal [facility] Comment on above: Performed By: #### C YTO #### [facility] [address] [address] [address] Jessica Sainz XR CHEST 1 Von [...] GAMA [place] Date: 2021 10:58 Normal [facility] CT CHEST WO CONon 09-30-2021 CT CHEST [...] by: [place] Date: 2021-09-30 16:57 Normal [facility]-2017 CNPN Telephone (GYNML) ---CANDELARIA FOSTER ([id number]) 1960 FDate Time Provider Department11/18/17 KARINA WILLIS [...] medical team for review and adviseMary TREMAYNE Cheung.ORTHODONTIC TREATMENT COORDINATOR 11/18/2017 1:04 PM SignedPatients commonly experience an [...] Status:Closed by JENNA CHEUNG CNP on 11/18/17 [facility] ANES Darek 11-03-2017 ANES POST HNO ID: [id number] thor: Delisa Henderson AService: AnesthesiologyAuthor Type: AnesthesiologistType: [...] 03, 2017 : 9:31 AM PAGER/CONTACT #: [facility] ANES PREOPon 11-03-2017 ANES PREOP HNO ID: [id number] thor: Delisa Henderson AService: AnesthesiologyAuthor Type: AnesthesiologistType: Anesthesia PreOpFiled: 11/03/2017 8:03 AMNote Text:REGIONAL ANESTHESIOLOGY DAY OF SURGERY NOTEPATIENT NAME: Candelaria FosterMRN: [id number]: 1960Procedure(s) (LRB):VULVECTOMY PARTIAL SIMPLE (Left)Surgeon(s):Tamia TorresEstimated body [...] arteries- HYSTERECTOMY HX- PAST SURGICAL HISTORY OF [place] Teeth Extraction- PAST SURGICAL HISTORY OF [facility] on scalpFAMILY HISTORYProblem Relation Age of Onset- Heart Father d. @ 42 of [place]- Heart Paternal Grandfather d. @ 45 of [place]- Heart Brother Cardiac Stent Placement- Heart Sister- [...] directed every 24 hours.Inpatient medications reviewed in [facility].I have interviewed and examined the patient. I [...] findings confirmed. Patient examined. Discussed with the BROADCAST OPERATIONS ENGINEER andthe patient. Plan as outlined.ab Ta Henderson, Trell20178:03 AM [facility] BRIEF OP NOTon 11-03-2017 BRIEF OP NOT HNO ID: [id number] thor: Jorge Brennan: Gynecology OncologyAuthor Type: PhysicianType: Brief Op NoteFiled: 11/03/2017 8:24 AMNote Text:BRIEF OP NOTELOG ID: [id number]/Procedure Date: 11/03/2017Incision/Procedure Start Time: 8:04 AMIncision Close/Procedure End Time: 8:18 AMSurgeon(s)/Proceduralist(s ) and Data Administrator(s):Surgeon(s) and Role: * Tamia Torres - Primary [...] 03, 2017 : 8:22 AM PAGER/CONTACT #: [facility] HISTORY PHYSICALon 8 HISTORY PHYSICAL HNO ID: [id number] thor: Clair Diaz (Res)Service: Gynecology OncologyAuthor Type: [...] November 03, 2017 : 7:30 AM PAGER: [phone] [facility] NURSING PROGon 11-03-2017 NURSING PROG HNO ID: [id number] thor: Elma Frazier (Rn), RNService: NursingAuthor Type: Registered NurseType: Nursing Progress NoteFiled: 11/03/2017 8:42 AMNote Text: Nursing Progress NotePatient Name: Candelaria FosterMRN: [id number] Location: [facility] OR POOL/[facility] OR POOL 0828 Pt arrived from OR and attached to PACU monitor. Assessmentcompleted see assessment section. No signs of bleeding noted.This note was completed by: Elma Frazier RN [facility] OPERATIVE NOon 11-03-2017 OPERATIVE NO HNO ID: [id number] thor: Thang Torres: Gynecology OncologyAuthor Type: PhysicianType: Operative ReportFiled: 11/04/2017 1:12 PMNote Text:OPERATIVE/PROCEDURE REPORTLOG ID: [id number]/PROCEDURE DATE: 11/03/2017INCISION/PROCEDURE START TIME: 8:04 AMINCISION CLOSE/PROCEDURE END TIME: 8:18 AMSURGEON(S)/PROCEDURALIST(S ) AND COIL INSPECTOR(S):Surgeon(s) and Role: * Tamia Torres - Primary [...] 04, 2017 : 1:09 PM PAGER/CONTACT #: [facility] PLAN OF CAREon 11-03-2017 PLAN OF CARE HNO ID: [id number] thor: Rupesh ([employer])Dorinda: (none)Author Type: TechnicianType: Plan of CareFiled: 11/04/2017 9:27 AMNote Text:PHARMACY BEDSIDE DELIVERY SERVICEPatient Name: Candelaria FosterMRN: [id number] marked outpatient medications were filled and deliveredMedication [...] them or your Primary Care Provider.Iveth Goddard ([employer])PAGER: [phone] 2017 9:27 AM [facility] PLAN OF CARE HNO ID: [id number] thor: Rupesh ([employer])Dorinda: (none)Author Type: TechnicianType: Plan of CareFiled: 11/03/2017 10:31 AMNote Text:Pharmacy Discharge Medication Service:This patient has elected to receive their discharge prescriptions throughthe [facility] Bedside [facility]. Theprescriptions are currently being processed. A follow-up note will beentered once the prescriptions have been filled and delivered to thepatient. Please contact me with any questions or updates to the patient'sdischarge medications.Iveth Goddard (Reed Repairer)DCT Contact Info: [phone] [facility] PLAN OF CARE HNO ID: [id number] thor: Rupesh (Reed Repairer), Sohanervice: (none)Author Type: TechnicianType: Plan of CareFiled: 11/03/2017 10:31 AMNote Text:DIRECTOR OF RADIO SERVICES BEDSIDE DELIVERY SURVEY1. Patient to use [facility] Bedside Delivery - YES2. If fax, patient would like us to fax prescriptions to [facility]. Pharmacy: b. Location: c. Phone:3. Insurance card on file - YES4. Credit card for payment - N/A [facility] PT EDon 11-03-2017 PT ED HNO ID: [id number] thor: Kamla Zambrano (Rn), RNService: NursingAuthor Type: Registered NurseType: Patient EducationFiled: 11/03/2017 6:43 AMNote Text:PRE OP LEARNING ASSESSMENTPROCEDURE/SURGERY: SURGERY:READINESS TO LEARNCOGNITIVE ABILITY: Alert and orientedMOTIVATION TO LEARN: EagerFAMILY SUPPORT: Unable to assess - Family not presentPATIENT LEARNS BEST BY: Individual InstructionFACTORS AFFECTING LEARNING: NonePHYSICAL LIMITATIONS AFFECTING LEARNING: NoneElectronically Signed By: Kamla Zambrano RN In Department: [facility] OPERATING ROOM [facility] SURGICAL PATHOLOGYon 018 SURGICAL PATHOLOGY [facility]: [id number] Physician: TAMIA TORRES MD FINAL DIAGNOSIS1. Right [...] 6 o'clock.WE/shayan 11/03/2017 Gross examination performed at [facility], [address] [address] of Report: 11/08/2017Date of Procedure: 11/03/2017Date of Receipt: 11/03/2017Submitted by: TAMIA TORRES MDLocation: FVORDiagnostic interpretation performed at [facility], [address] [place] [address]. [facility] Comment on above: Performed By: #### P ATHS ####[address] [place] [address] NURSING PROGon 10-26-2017 NURSING PROG HNO ID: [id number] thor: Bambi (Rn) ALLYSON Lyonervice: General SurgeryAuthor Type: Registered NurseType: Nursing Progress NoteFiled: 10/26/2017 4:26 PMNote Text:PACC Nurse Progress NoteHistory AND Physical:PACC Visit Date: 7-89-81Btmapyag HANDP Date: N/AED visit Date: N/AOutside HANDP Scanned Date: N/ALabs Within Last 6 Months:CBC: Date 10-19-17BMP/CMP: Date 7-10-42Tzinrof Within Last 12 Months:N/ACardiac Testing:EKG in last 12 Months: Yes: Date: 10-19-17, Comment: Confirmed in EPIC.Last Menstrual Period:LMP Date: UnknownPostmenopausal >1yr: Yes,S/P Hysterectomy: YesBMI Percentile (PEDS):N/ARisk Assessment:N/AAnesthesia Review:N/ANarrative:N/APre-o p Considerations:N/AChart Check:Juventino Lyon RNMay 2017 4:25 PM [facility] HOSPon 10-05-2017 HOSP Patient:Sumi Foster LMRN: Height:5' [...] 3.7HEMA* 43.3 % 10/19/2017 46.0 36.0Progress Notes (PLANT WIRE CHIEF [facility]):Aleena Cuenca (Rn), RN 10/31/2017 3:20 [...] clean and dry.Advised I would discuss with ORTHODONTIC TREATMENT COORDINATOR and call her backShe also states that [...] else she should do. Will route to [facility] to adviseVAlenea prasad (Rn), RN 11/01/2017 4:33 PM SignedInformed pt of [facility]'s message to go ahead and use prep [...] use cortizone creamthere.Will update medical teamGalina Dowell (Entry Level Recruiter) 11/02/2017 3:08 PM SignedWould not advise any creams in anticipation of procedure for tomorrowThNano Bentley (Rn), RN 11/02/2017 3:49 PM SignedLeft vm for patient in regards to message below.Progress Notes (PLANT WIRE CHIEF [facility]):Aleena Cuenca (Rn), RN 10/26/2017 1:57 PM SignedLeft vm for pt to call office to discuss pre-op instructions prior to surgerywith Dr. Torres on 11/03/17Will Nimco Michaud RN 10/27/2017 4:00 PM SignedPatient returning call for pre op instructions.Procedure: VULVECTOMY PARTIAL SIMPLEPhysician: Tamia TorresLocation: [facility]: [phone] AND Time: 11/03/2017MEDICAL CLEARANCE: No CARDIAC CLEARANCE: NoPRE ADMISSION TESTIN10/19/17 AT: [facility]): [phone] FOLLOWING WAS EVALUATED Motivation To Learn: Interested [...] Celebrex MotrinAggrenox Clinoril Naprosyn(naproxen)Agrylin NSAIDS Pepto-BismolAleve Ecotrin PersantineAlka-Wilton Excedrin PlaquenilAnacin Heparin PlavixAscriptin Herbals PletalAspergum Ibuprofen [...] - IV pain medication after surgery, IV MACHINE ASSEMBLER FOR PULLER OVER if ordered by MD,discharged home with a prescription for PO pain medication, pain managementafter surgery, side effects of pain medication (including constipation,dizziness, drowsiness, and medication interactions).DVT PROPHYLAXIS - Early ambulation, SCDs, injectable anticoagulants (heparin,lovenox, etc)RESPIRATORY - Incentive spirometer, coughing/deep breathing exercises,ambulation.RETURN TO WORK - As directed by physician, please send any [facility] papers [facility] 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.SYMPTOMS TO NOTIFY MD - Fever, chills, nausea, vomiting, increased or severepain, heavy vaginal bleeding, foul smelling vaginal drainage, pain or swellingin extremities.URGENT SYMPTOMS - Call 911 or go to ER if any shortness of breath, difficultybreathing, or chest pain.HOW TO CONTACT PHYSICIAN - Physician's office phone number given to patient, ifafter hours patient instructed to call canning machine operator and ask for the doctor certified low vision therapist.Patient and family have phone number to call 24 hours/day.Patient Evaluation: Verbalizes understandingPatient and/or family express understanding of upcoming surgery and theoperative process. Questions answered.Follow Up Plan: Follow up as neededSupplemental Material Given:Pre-operative teaching packet provided to the patient:INPATIENT/OUTPATIENT printed instructions; Post-operative instruction sheet,bowel prep instruction sheetFor questions contact: Tamia Torres's office at [phone] By Nimco Garza RN [facility] Vital Signs Date Time Vital Sign Value Performing Clinician Facility 12-16-2023 11:27-0400 Body height 157.48 cm [facility] 12-16-2023 11:27-0400 Body mass index (BMI) [Ratio] 27.3 kg/m2 [facility] 12-16-2023 11:27-0400 Body weight 67.75 kg [facility] 12-16-2023 11:27-0400 Diastolic blood pressure 81 mm[Hg] [facility] 12-16-2023 11:27-0400 Heart rate 75 /min [facility] 12-16-2023 11:27-0400 Respiratory rate 12 /min [facility] 12-16-2023 11:27-0400 Systolic blood pressure 143 mm[Hg] [facility] 12-14-2022 11:00-0400 Body height 156.21 cm Clint Transcriptic Other [facility] Other 12-14-2022 11:00-0400 Body mass index (BMI) [Ratio] 28.25 kg/m2 Clint Ball Other [facility] Other 12-14-2022 11:00-0400 Body weight 68.95 kg Clint Ball Other [facility] Other 12-14-2022 11:00-0400 Diastolic blood pressure 73 mm[Hg] Clint Transcriptic Other [facility] Other 12-14-2022 11:00-0400 Respiratory rate 12 /min Clint Veras Other [facility] Other 12-14-2022 11:00-0400 Systolic blood pressure 112 mm[Hg] Clint Veras Other [facility] Other Encounters Encounter Date Encounter Type Care Provider Facility Start: 12-16-2023 End: 12-16-2023 ambulatory [facility] Work Phone: Start: 12-16-2023 End: 12-16-2023 Encounter for general adult medical examination without abnormal findings [facility] Start: 12-16-2023 End: 12-16-2023 Patient encounter procedure [facility] Work Phone: Start: 12-07-2023 End: 12-07-2023 ambulatory CHAY ALEJANDRE Not Available Start: 11-07-2023 End: 11-07-2023 ambulatory MIKALBETTY LEMUS Not Available Start: 05-16-2023 End: 05-16-2023 ambulatory NIMCO TRIMBLE Not Available Start: 01-21-2023 End: 01-21-2023 ambulatory Clint Veras Other [facility] Other Start: 01-21-2023 Telephone encounter Clint Marissa [facility] Start: 12-15-2022 End: 12-15-2022 ambulatory Clint Veras Other [facility] Other Start: 12-15-2022 Telephone encounter Clint Veras [facility] Start: 12-14-2022 End: 12-14-2022 ambulatory Clint Veras Other [facility] Other Start: 12-14-2022 Encounter for genera l adult medical examination without abnormal findings Clint Veras [facility] Start: 12-14-2022 Periodic preventive med est patient 40-[address] [facility] Start: 07-16-2022 End: 07-16-[address] SHARMAINE CHAUDHARI . [facility] Other Start: 07-16-2022 Telephone encounter Clint Mantilla Senior Accounting Manager Start: 06-27-2022 End: 07-13-[address] CLINT VERAS Facility:[facility] Start: 06-23-2022 End: 06-23-2022 ambulatory Leon Kohli Facility:[facility] Start: 06-22-2022 End: 06-22-2022 ambulatory Leon Kohli Other [facility] Other Start: 06-22-2022 Telephone encounter Leon Mantilla [facility] Start: 06-16-2022 End: 06-26-[address] CLINT VERAS Facility:[facility] Start: 06-08-2022 End: 06-08-2022 ambulatory David Lemus Other [facility] Other Start: 06-08-2022 Office outpatient ne w 45 minutes David Lemus [facility] [place] Start: 05-27-2022 Gynecological examination normal Clint Veras Other [facility] Other Start: 05-27-2022 End: 05-27-[address] CLINT VERAS Facility:[facility] Start: 05-14-2022 End: 05-15-[address] CLINT VERAS Facility:[facility] Start: 05-11-2022 End: 05-12-[address] CLINT VERAS Facility:[facility] Start: 04-23-2022 End: 04-23-[address] SHARMAINE CHAUDHARI . Facility:[facility] Start: 02-22-2022 End: 02-22-2022 ambulatory Leon Kohli Other [facility] Other Start: 02-22-2022 Telephone encounter Leon Mantilla Senior Accounting Manager Start: 01-16-2022 End: 01-17-[address] GAMA [place] Facility:[facility] Start: 01-06-2022 End: 01-07-[address] ELMER ANTOINE Facility:[facility] Start: 12-10-2021 Encounter for genera l adult medical examination without abnormal findings DR CLINT VERAS [facility] Start: 12-08-2021 End: 12-09-[address] CLINT VERAS Facility:[facility] Start: 12-08-2021 End: 12-09-2021 Encounter for general adult medical examination without abnormal findings DR CLINT VERAS Facility:[facility] Start: 12-08-2021 Adult health examination Clint Veras Other [place] [facility] Other Start: 2021 End: [address] GAMA [place] Facility:[facility] Start: 09-30-2021 End: 10-01-[address] CLINT VERAS Facility:[facility] Start: 11-03-2017 End: 11-03-2017 Ambulatory [facility] Procedures Date Procedure Procedure Detail Performing Clinician [...] lic 2000 panel - Serum or Plasma [facility] Immunizations Immunization Date Immunization Notes Care Provider Bandar sharma 09-03-2020 COVID-19 Vaccine Mejia ssen - Documentation Purposes Only Clint Veras Other [facility] Payers Date Payer Category Payer Unknown [id number] 2022 Unknown [id number] 1960 Unknown [id number] 1959 Unknown [id number] .[id number] 1959 Unknown [id number] [id number] 1959 Unknown [id number] 2.16.840.1.643485.3.579.2.593 1959 Unknown [id number] 2.16.840.1.777981.3.579.2.593 1959 Unknown [id number] 2.16.840.1.894544.3.579.2.593 1959 Unknown [id number] 2.16.840.1.349118.3.579.2.593 1959 Unknown [id number] 2.16.840.1.405312.3.579.2.593 1959 Unknown [id number] 2.16.840.1.137080.3.579.2.593 1959 Unknown [id number] 2.16.840.1.177984.3.579.2.593 1959 Unknown [id number] 2.16.840.1.970961.3.579.2.593 1959 Unknown [id number] 2.16.840.1.452040.3.579.2.593 1959 Unknown [id number] 1960 Unknown [id number] 1960 Unknown [id number] 1960 Unknown [id number] 1960 Unknown [id number] 1960 Unknown [id number] Private Health Insurance [facility] [id number] Self-pay Self Pay [id number] Social History Date Type Detail Facility Sex Assigned At [facility] Other Start: 06-23-2022 Tobacco smoking stat [facility] Smoker (finding) [facility] Start: 1960 Sex Assigned At Female F [facility] Evaluation note 01-21-2023 Note Date & Type Note Facility 01-21-2023 Evaluation note Encounter Date Diagnosis Assessment Notes Dec, Cigarette nicotine dependence without complication (ICD-10 - F17.210) LDCT lungs w/o suspicious nodules - 12/2022Dec, Mucopurulent chronic bronchitis (ICD-10 - J41.1) [facility] Other Evaluation note 12-14-2022 Note Date & [...] use, the patient reduces the risk for ND, CVA, HTN, cardiac dysrhythmias and sudden cardiac [...] repeat scope in 5years Nov, Atherosclerosis of blackfeet artery of both lower extremities with intermittent claudication (ICD-10 - I70.213) Inspect feet daily, walk daily. Continue ASA and Statin therapy [facility] Other History general Narrative - Reported 07-18-2022 Note Date & Type Note Facility 07-18-2022 History general N arrative - Reported Type Medical History hypertension Medical History hyperlipidemia Medical History fibromyalgia Surgical History hysterectomy Surgical History colonoscopy 07/18/22 [facility] Other History general Narrative - Reported 07-18-2022 Note Date & Type Note Facility 07-18-2022 History general N arrative - Reported Type Medical History hypertension Medical History hyperlipidemia Medical History fibromyalgia Surgical History hysterectomy Surgical History colonoscopy 07/18/22 Hospitalization History see surgical history [facility] Other Evaluation note 06-08-2022 Note Date & [...] Above note written by Rashaad Alejandre MA, Discharge Rn. Edited and approved by Dr. David Lemus MD. Medical decision making shows a [...] negative findings were considered in medical decision-making. [facility] Other Evaluation note 02-22-2022 Note Date & Type Note Facility 02-22-2022 Evaluation note Encounter Date Diagnosis Assessment Notes Jan, Screening for colon cancer (ICD-10 - Z12.11) [facility] Other Evaluation note Note Date & Type Note Facility Evaluation note No Information [facility] Other Evaluation note Note Date & Type Note Facility Evaluation note Diagnosis Onset Date Chronic bronchitis acute ELADIO (generalized anxiety disorder) acute Hypertension acute Nicotine addiction acute TARA (obstructive sleep apnea) acute Peripheral artery disease [facility] examination noneact jason [facility] Work Phone: History general Narrative - Reported Note Date & Type Note Facility History general Narrative - Reported Type Medical History hypertension Medical History hyperlipidemia Medical History fibromyalgia Surgical History hysterectomy [facility] Other Summary Purpose Family History Relationship Condition [...] section and content) DATE CREATED AUTHOR 12/14/2017 [facility] DATE CREATED AUTHOR AUTHOR'S ORGANIZ ATION 06/23/2022 [facility] DATE CREATED AUTHOR AUTHOR'S ORGANIZ ATION 09/21/2022 [facility] DATE CREATED AUTHOR AUTHOR'S ORGANIZ ATION 12/08/2023 [facility] EPIC REASON FOR VISIT (unrecogniz ed section and content) MAIL PPWREF BY DR MARISSA Lewis UMBAR SPONDYLOSIS AND NUMBNESSClinical Acute IllnessCOLONOSCOPY REPORTMOUNTAIN STATES HEALTH ALLIANCELab ResultsNo Information Care Teams (unrecognized sec tion [...] BE BASED ON THE PRIMARY CLINICAL RECORDS. [employer] [facility]. provides no warranty or guarantee of the accuracy or completeness of information in this document.
[2024-02-13 12:15] LABS: Prothrombin Time 9.8 sec (9.0-11.6)
[2024-02-13 12:20] LABS: INR <0.93
[2024-02-13 12:23] LABS: Alanine Aminotransferase 22 U/L (14-59); Albumin Level 3.8 g/dL (3.4-5.0); Alkaline Phosphatase 112 U/L (46-116); Anion Gap 10.9; Aspartate Amino Transferase 18 U/L (15-37); BUN Creatinine Ratio 26.8; Bilirubin Total 0.3 mg/dL (0.2-1.0); Calcium 9.1 mg/dL (8.5-10.1); Chloride 103 mmol/L (98-107); Estimated GFR (African America >60 (>=60); Estimated GFR (Non-African Ame >60 (>=60); Globulin 3.7 g/dL; Glucose 93 mg/dL (74-106); Potassium 3.9 mmol/L (3.5-5.1); Sodium 137 mmol/L (136-145); Total Protein 7.5 g/dL (6.4-8.2)
--- NOTE | 2024-02-13 12:35 | CT_ITS ---
[address] [address] Patient Name: MALACHI FOSTER MRN: [id number] date: 1960 Sex: F Assigned Patient Location: ER Current Patient Location: ER Accession/Order Number: [id number] Exam Date: 02/13/2024 12:48 Report Date: 02/13/2024 14:12 At the request of: YING STEELE Procedure: CT chest w con EXAMINATION: CT chest w con HISTORY: hemoptysis COMPARISON: No relevant comparison available. TECHNIQUE: Multi-planar CT images were created with IV contrast. Axial, Coronal, and Sagittal images. Dose reduction techniques were achieved by using automated exposure control and/or adjustment of mA and/or kV according to patient size and/or use of iterative reconstruction technique. FINDINGS: LUNGS: Moderate centrilobular and paraseptal emphysema with an upper lobe predominance, right greater than left. Scattered subcentimeter pulmonary nodules throughout both lungs. Scattered linear opacities likely atelectasis or scar. No focal parenchymal consolidation. PLEURA: No mass, effusion, or pneumothorax. VASCULATURE: Normal postcontrast opacification of the central pulmonary artery with no filling defect to suggest a pulmonary embolus CHESTER: Borderline right hilar lymph node MEDIASTINUM: No mass or adenopathy. CARDIAC: No enlargement, pericardial thickening, or significant calcification. AORTA: No aneurysm or dissection. CHEST WALL: No mass or axillary adenopathy. BONES: No bone lesion or fracture. LIMITED ABDOMEN: No suspicious findings. Limited images of the upper abdomen. OTHER: Negative. CT/CT chest w con IMPRESSION: No central pulmonary thromboembolic disease Mild emphysema with scattered subcentimeter nodules and atelectasis Borderline enlarged right hilar lymph node Electronically authenticated by: ELMER ANTOINE Date: 02/13/2024 14:12
--- NOTE | 2024-02-13 13:10 | ED_ITS ---
HPI HPI - General Adult General Chief complaint: Upper Respiratory Infection Stated complaint: COUGHING UP BLOOD/GENERAL WEAKNESS Time Seen by Provider: 02/13/24 11:45 Mode of arrival: walk-in History of Present Illness HPI narrative: Patient presented to us with a history of coughing although she mentioned that for the last few days she has been having some blood in sputum, she did present to her primary care doctor who sent her over to be evaluated, the patient has been evaluated before for COPD she mentioned that she does not use her Spiriva because she does not want to be exposed to this medication although she was prescribed that by her doctor The patient continues to smoke cigarettes less than 1 pack/day The patient is complaining of a cough no difficulty breathing when the cough she noted in the last few days that she had some blood although she noted the amount of blood was little bit more this morning although and she noted that the blood in her sputum is less Related Data Home Medications ?Medication ?Instructions ?Recorded ?Confirmed aspirin 81 mg tablet,delayed 81 mg PO DAILY 01/17/24 01/17/24 release (Adult Low Dose Aspirin) atorvastatin 20 mg tablet 20 mg PO DAILY 01/17/24 01/17/24 lisinopril 5 mg tablet 5 mg PO DAILY 01/17/24 01/17/24 Previous Rx's ?Medication ?Instructions ?Recorded doxycycline hyclate 100 mg tablet 100 mg PO BID 7 days #14 tabs 02/13/24 Allergies Allergy/AdvReac Type Severity Reaction Status Date / Time acetaminophen Allergy Severe Rash Verified 01/17/24 09:08 [From Darvocet-N] bupropion [From Wellbutrin] Allergy Severe Rash Verified 01/17/24 09:08 cyclobenzaprine Allergy Severe Palpitation Verified 01/17/24 09:08 [From Flexeril] s propoxyphene Allergy Severe Rash Verified 01/17/24 09:08 [From Darvocet-N] Opioid HPI Opioid Management Most Recent Opioid Data: No Data to Display Review of Systems ROS Status of ROS 10 or more systems reviewed and unremark able except as noted in history and below [facility] Medical History (Updated 02/13/24 @ 15:38 by Mackenzie Fay MD) COPD (chronic obstructive pulmonary disease) ?J44.9 - Chronic obstructive pulmonary disease, unspecified (ICD-10) Hypertension ?I10 - Essential (primary) hypertension (ICD-10) Exam Narrative Exam Narrative: Nurses notes and vital signs reviewed and patient is not hypoxic. General: Well-appearing and in no apparent distress. Skin: Warm, dry, no pallor noted. No rash. Head: Normocephalic, atraumatic. Neck: Supple, non-tender. Eye: Pupils are equal, round and EOMI. No scleral icterus. Ears, Nose, Mouth, and Throat: TM are clear, no nasal mucosal hypertrophy. Oral mucosa is moist, no posterior oropharynx erythema, uvula is mid-line Cardiovascular: Regular Rate and Rhythm without murmur, gallop or rub. Respiratory: Bilateral expiratory lung wheezes Lungs are clear to auscultation, no wheezing, rales or rhonchi Chest Wall: no tenderness Back: No midline thoracic or lumbar vertebral tenderness. No CVA tenderness Musculoskeletal: normal ROM, no calf or popliteal tenderness, no lower extremity edema/swelling GI: Abdomen is soft, non-distended. Normal bowel sounds. No masses appreciated. No tenderness to palpation. No rebound, guarding, or rigidity noted. Neurological: A&O x4. No cranial nerve dysfunction observed. No truncal ataxia. Moves all extremities. Sensation intact. Psychiatric: Cooperative and interactive. Normal mood and affect. Constitutional Vital Signs, click to edit/add: Last Vital Signs Temp 98.2 F 02/13/24 11:38 Pulse 67 02/13/24 14:50 Resp 161 H 02/13/24 14:50 BP 164/82 H 02/13/24 15:54 Pulse Ox 95 02/13/24 14:50 O2 Del Method Room Air 02/13/24 14:50 Course Vital Signs Vital signs: Vital Signs Temperature 98.2 F 02/13/24 11:38 Pulse Rate 81 02/13/24 11:38 Respiratory Rate 18 02/13/24 11:38 Blood Pressure 167/90 H 02/13/24 11:38 Pulse Oximetry 95 02/13/24 11:38 Oxygen Delivery Method Room Air 02/13/24 11:38 Temperature 98.2 F 02/13/24 11:38 Pulse Rate 67 02/13/24 14:50 Respiratory Rate 161 H 02/13/24 14:50 Blood Pressure 164/82 H 02/13/24 15:54 Pulse Oximetry 95 02/13/24 14:50 Oxygen Delivery Method Room Air 02/13/24 14:50 Medical Decision Making MDM Narrative Medical decision making narrative: The patient CBC and chemistry showed no acute pathology CAT scan of the neck as well as CAT scan of the chest with contrast showed no acute pathology The patient did mention having some dysphagia sometimes but her main concern with the coughing and blood in sputum The patient blood in stool or black stool could be mostly secondary to swallowing blood as she does not have any abdominal pain and her exam was benign Right now the patient presentation is mostly secondary to bronchitis she will be treated with doxycycline and the patient also was instructed about taking her medication as she is not using her Spiriva The patient is to come back in case of any worsening of her symptoms she is to monitor her symptoms as well The patient is to follow up with primary care physician in next 2-3 days or to return to the emergency department should any of the signs or symptoms worsen or new symptoms develop. The patient agrees with the following Diagnosis and Treatment plan and the patient will be discharged home. Lab Data Labs: Lab Results 02/13/24 Range/Units 11:55 WBC 4.7 (4.0-11.0) 10^3/uL RBC 4.68 (4.20-5.40) 10^6/uL Hgb 13.8 (12.0-16.0) g/dL Hct 42.3 (36.0-48.0) % MCV 90.4 (81.0-99.0) fL MCH 29.5 (26.7-34.0) pg MCHC 32.6 (29.9-35.2) g/dL RDW 12.8 (11.0-15.0) % Plt Count 193 (150-450) 10^3/uL MPV 10.2 (9.5-13.5) fL Neut % (Auto) 62.8 (43.0-75.0) % Lymph % (Auto) 27.2 (20.5-60.0) % Larimer % (Auto) 7.2 (1.7-12.0) % Eos % (Auto) 1.5 (0.9-7.0) % Baso % (Auto) 1.1 (0.2-2.0) % Neut # (Auto) 3.0 (1.4-6.5) 10^3/uL Lymph # (Auto) 1.3 (1.2-3.8) 10^3/uL [place] # (Auto) 0.3 (0.3-0.8) 10^3/uL Eos # (Auto) 0.1 (0.0-0.7) 10^3/uL Baso # (Auto) 0.1 (0.0-0.1) 10^3/uL Abs Immat Gran (auto) 0.01 (0.00-0.03) 10^3/uL Imm/Tot Granulo (auto) 0.2 (0.0-0.5) % PT 9.8 (9.0-11.6) sec INR <0.93 Sodium 137 (136-145) mmol/L Potassium 3.9 (3.5-5.1) mmol/L Chloride 103 (98-107) mmol/L Carbon Dioxide 27.0 (21.0-32.0) mmol/L Anion Gap 10.9 BUN 19.0 H (7.0-18.0) mg/dL Creatinine 0.71 (0.55-1.02) mg/dL Est GFR ( Amer) >60 (>=60) Est GFR (Non-Af Amer) >60 (>=60) BUN/Creatinine Ratio 26.8 Glucose 93 (74-106) mg/dL Calcium 9.1 (8.5-10.1) mg/dL Total Bilirubin 0.3 (0.2-1.0) mg/dL AST 18 (15-37) U/L ALT 22 (14-59) U/L Alkaline Phosphatase 112 (46-116) U/L Total Protein 7.5 (6.4-8.2) g/dL Albumin 3.8 (3.4-5.0) g/dL Globulin 3.7 g/dL Albumin/Globulin Ratio 1.0 Discharge Plan Discharge Stand Alone Forms: Portal Instructions Chief Complaint: Upper Respiratory Infection Clinical Impression: Hemoptysis, Acute viral bronchitis Patient Disposition: Home, Self-Care Time of Disposition Decision: 15:38 Condition: Good Mode of Transportation: Private Vehicle Prescriptions / Home Meds: New doxycycline hyclate 100 mg tablet 100 mg PO BID 7 Days Qty: 14 0RF No Action atorvastatin 20 mg tablet 20 mg PO DAILY lisinopril 5 mg tablet 5 mg PO DAILY aspirin [Adult Low Dose Aspirin] 81 mg tablet,delayed release (DR/EC) 81 mg PO DAILY Print Language: Greenlandic Instructions: Acute Bronchitis (ED), Coughing Up Blood (Hemoptysis) (ED) Referrals: Clint Veras DO [Primary Care Provider] - 1 week Discharge Date/Time: 02/13/24 15:55
--- NOTE | 2024-02-13 14:31 | CT_ITS ---
[address] [address] Patient Name: MALACHI FOSTER MRN: [id number] date: 1960 Sex: F Assigned Patient Location: ER Current Patient Location: Accession/Order Number: [id number] Exam Date: 02/13/2024 15:04 Report Date: 02/13/2024 15:28 At the request of: YING STEELE Procedure: CT soft tissue neck wo con EXAM: CT soft tissue neck wo con CLINICAL INDICATION: dysphagia COMPARISON: No direct coronal studies. CT chest 01/21/2023. TECHNIQUE: Standard nonenhanced CT of the neck. Axial sections with coronal and sagittal reformats were obtained. Dose reduction techniques were achieved by using automated exposure control and/or adjustment of mA and/or kV according to patient size and/or use of iterative reconstruction technique. FINDINGS: Evaluation is limited due to absent intravenous contrast. Lymph Nodes/Soft Tissues: No definite extranodal soft tissue mass or fat stranding. No discrete enlarged or morphologically abnormal lymph nodes. Nasopharynx: Normal. Suprahyoid Neck: Oropharynx, oral cavity, parapharyngeal, and retropharyngeal spaces are clear and symmetric. Infrahyoid Neck: Larynx, hypopharynx, and supraglottic area are clear and symmetric. Vocal cords are symmetric. Parotid Glands: Normal. Submandibular Glands: Normal. Thyroid: Normal. Orbits: Normal. Paranasal Sinuses: Well-aerated. Mastoid Air Cells: Well-aerated. Skull Base: Normal. Thoracic Inlet: Visualized lung apices are clear. Centrilobular emphysematous changes. Vascular Structures: Trace atherosclerotic calcifications of the carotid artery bifurcations. Musculoskeletal: No acute osseous abnormality. Multilevel cervicothoracic spondylotic changes. Subcentimeter atherosclerotic focus in the T1 vertebral body is unchanged since 01/21/2023. CT/CT soft tissue neck wo con IMPRESSION: Given the constraint of absent intravenous contrast, there is no discrete acute soft tissue abnormality in the neck. Electronically authenticated by: MICHAEL JOYNER Date: 02/13/2024 15:28
[2024-02-13] MEDS: METHYLPREDNISOLONE SOD SUCC PF 125 MG/2 ML VIAL IVP (14:45)
[2024-02-13 14:50] VITALS: PULSE 67; O2SAT 95
[2024-02-13] MEDS: IPRATROPIUM/ALBUTEROL SULFATE 3 ML AMPUL.NEB IH (14:50)
[2024-02-13 15:54] VITALS: BP 164/82
== END 2024-02-13 15:55 | disposition home or self-care (01) ==
PROVIDERS: Emergency Provider Emergency Medicine; PCP Internal Medicine
DX: J20.9 Acute bronchitis, unspecified (principal); R04.2 Hemoptysis; F17.210 Nicotine dependence, cigarettes, uncomplicated
CPT/HCPCS: 36415; 70490; 71260; 80053; 85025; 85610; 94640; 96374; 99285; J2919; Q9967

== ENCOUNTER 2024-04-24 09:57 | Outpatient (OUT) | payer OTHER, SELFPAY ==
--- NOTE | 2024-04-24 10:02 | CT_ITS ---
The [address] [address] Patient Name: MALACHI FOSTER MRN: [id number] date: 1960 Sex: F Assigned Patient Location: CT Current Patient Location: Accession/Order Number: [id number] Exam Date: 04/24/2024 10:05 Report Date: 04/25/2024 06:12 At the request of: AGUILA LARA Procedure: CT chest wo con EXAMINATION: CT chest wo con HISTORY: Localized Enlarged Lymph Nodes COMPARISON: CT chest 02/13/2024 TECHNIQUE: Axial, Coronal, and Sagittal images were created without the administration of IV contrast material. Dose reduction techniques were achieved by using automated exposure control and/or adjustment of mA and/or kV according to patient size and/or use of iterative reconstruction technique. FINDINGS: LUNGS: Mild to moderate emphysematous changes. Stable appearance of a few sub-5 mm nodules scattered within the lungs. No new nodules, acute infiltrates, or suspicious findings. PLEURA: No mass, effusion, or pneumothorax. VASCULATURE: No abnormality. CHESTER: No mass or pathologic adenopathy. MEDIASTINUM: No mass or pathologic adenopathy. CARDIAC: No enlargement, pericardial thickening, or pericardial effusion. Coronary Artery calcifications: AORTA: No aneurysm or dissection. CHEST WALL: No mass or axillary adenopathy BONES: No bone lesion or fracture. LIMITED ABDOMEN: No suspicious findings. Limited images of the upper abdomen. OTHER: Negative. CT/CT chest wo con IMPRESSION: 1. Stable appearance of a few sub-5 mm nonspecific nodules scattered within the lungs; no suspicious findings. If patient is at increased risk for lung cancer consider follow-up CT chest in 1 year. 2. No lymphadenopathy. Electronically authenticated by: GAMA MI Date: 04/25/2024 06:12
--- OUTSIDE RECORDS SUMMARY | 2024-04-24 10:03 | XMS_ITS | CCD ---
Author Organization [facility] Care Team Providers Care Marketing Producer Name Role Phone MAHDI TAMIA Unavailable Unavailable TAMIA Unavailable Unavailable Leon Kohli Admitting Unavailable Leon [...] ., AGUILA Consulting Unavailable MARISSA, DR BONE Consulting Unavailable BALL, DR BONE Primary Care Unavailable BALL, DR BONE Attending Unavailable BALL, DR BONE Admitting Unavailable YADAV, ZIGGY Consulting Unavailable NEFCY, GIN Consulting Unavailable MARISSA, DR BONE Consulting Unavailable BALL, DR BONE Primary Care Unavailable BALL, DR BONE Attending Unavailable BALL, DR BONE Admitting Unavailable WEST, DR ELMER Parrish Consulting Unavailable KARASIK ., DR SCHMID Consulting Unavailabl e BALL, DR BONE Primary Care Unavailable KARASIK ., DR SCHMID Attending Unavailabl e KARASIK ., DR SCHMID Admitting Unavailabl e ELINA, DR ELMER Parrish Consulting Unavailable ZIEBER, DR GAMA Hinson Consulting Unavailable NAI, NIMCO Attending Unavailable FELTANDREA, MIKAL Chappell Attending Unavailable CHAY ALEJANDRE Attending Unavailable NELSON, MIKAL Chappell Referring Unavailable EMIL, CHAY Gamboa Attending Unavailable EMIL, CHAY Gamboa Attending Unavailable Allergies Allergy Classification Reported Allergen(s) Allergy Type Date of Onset Reaction(s) Facility (1 source) buPROPion; Translations: [BUPROPION HCL] Drug Allergy AOF [facility] Repository (3 sources) caffeine; Translations: [CAFFEINE] Drug Allergy AOF, Unknown, Unknown Reaction [facility] Repository (1 source) cyclobenzaprine; Translations: [CYCLOBENZAPRINE HCL] Drug Allergy 018 [facility] Repository (1 source) PROPOXYPHENE N-ACETAMINOPHEN; Translations: [PROPOXYPHENE N-ACETAMINOPHEN] Propensity to adverse reactions to drug (disorder) [facility] Repository (8 sources) cyclobenzaprine; Translations: [Flexeril] Drug Allergy Unknown [facility] Repository (2 sources) buPROPion Drug Allergy WELLBUTRIN [facility] Repository (1 source) Darvocet-N 100 Drug allergy (disorder) [facility] Repository (2 sources) buPROPion Drug Allergy 024 Unknown, [facility] (2 sources) cyclobenzaprine Drug Allergy 017 CYCLOBENZAPRINE HCL Comment:Freetext Needs Updated., Hypertension, Comment:Rash [facility] (1 source) Propoxyphene Drug Allergy 018 DARVOCET [facility] Other (1 source) Allergies Reconciled Propensity to adverse reactions Unknown [facility] Other (1 source) patient allergy list reviewed by nurse or physicia Propensity to adverse reactions 019 Comment:Done [facility] Other (1 source) Flexeril *MUSCULOSKELETAL THERAPY AGENTS* Propensity to adverse reactions Comment:Rash [facility] Other (1 source) Darvocet A500 *ANALGESICS - OPIOID* Propensity to adverse reactions Unknown [facility] Other (1 source) Acetaminophen Drug Allergy 024 Itching [facility] (1 source) Propoxyphene Drug Allergy 024 Itching [facility] (1 source) Darvocet A500 *ANALGESICS - OP Allergy to substance 024 Unknown Reaction [facility] (1 source) stimulants Propensity to adverse reactions 019 Unknown Reaction [facility] (1 source) sugar Propensity to adverse reactions 019 Unknown Reaction [facility] Medications Current Medications Medication Drug Class(es) [...] once daily Lisinopril Discontinued 0 .ROUTE .COMPLEX 30 September 19, 2023 1:29pm December 16, 2023 [...] Fluticasone Propionate (Flonase Allergy Relief) 50 mcg/actuation Wesley,Suspension Discontinued 2 SPRAY INTRANASAL Daily June 18, 2019 1:00am June 23, 2022 8:20am oxymetazoline hydrochloride 0.5 mg/ml nasal spray (1 source) Start: 06-18-2019 End: 06-18-2019 Oxymetazoline (Afrin (Oxymetazoline)) 0.05 % Wesley,Non-Aerosol Discontinued 2 SPRAY INTRANASAL Q12H June 18, [...] Episodic Administrative/social admission (1 source) Informing health critical care unit manager of test result; Translations: [Person consulting for [...] and due to atherosclerosis; Translations: [Atherosclerosis of [place] arteries of extremities with intermittent claudication, bilateral [...] bone density and structure, unspecified site; Translations: [OT D/O BONE DEN STRUCT UNS SITE] Onset: [...] nonspecific abnormal finding of lung field; Translations: [[facility] NONSPECIFIC ABN FIND LNG FIELD] Onset: 01-16-2022 [...] Range Facility HERPES SIMPLEX VIRUS (HSV) C [facility] 07-22-2022 HSV Culture/Type Comment Abnormal [facility] Comment on above: Result Comment: 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 Typing was confirmed by monoclonal antibody microscopic immunofluorescence. Performed By: #### H SVCUL #### [facility] [address] [place] [address] Dr. Jessica Sainz [facility]on SARS-CoV-2 (COVID-19) RNA JANICE+probe Ql (Unsp spec) Not detected Normal NOT DETECTED [facility] Comment on above: Result Comment: This test is not yet approved or cleared by the [place] FDA. When there are no FDA-approved or cleared tests available, and other criteria are met, FDA can make tests available under an emergency access mechanism called an Emergency Use Authorization (EUA). The EUA for this test is supported by the Manufacturing Finance Manager of Health and Human Service's (HHS's) declaration [...] consistent with SARS-CoV-2. Performed By: #### C [facility] #### [facility] [address] [place] [address] Dr. Jessica Sainz XR CSPINE 2_3 VIEWSon [...] ELMER ANTOINE Date: 2022-05-16 11:55 Normal [facility] XR DEXA BONE DENSITYon 05-12 XR [...] by: GAMA MI Date: 2022-05-12 06:51 Normal [facility] MAMM SCREEN 3D ARNOLDO CADon 05-11-2022 MG MAMM SCREEN 3D ARNOLDO CAD Patient: CANDELARIA FOSTER Exam Date: 05/11/2022 : 1960 Gender:F Ordering : DR SHARMAINE CHAUDHARI . Admission #: [id number] Family : Order #: [id number] CLICK HERE TO VIEW EXAM RADIOLOGY REPORT PROCEDURE: MAMMOGRAM SCREENING 3D BILATERAL CAD COMPARISON: MAMM SCREEN ARNOLDO W CAD, 04/01/2020. MG MAMM SCREEN 3D ARNOLDO CAD, 04/28/2021. INDICATIONS: Screening mammography Calculator Name NCI Breast Cancer Risk Assessment Tool 5 Year Breast Cancer Risk 1.70% Lifetime Breast Cancer Risk 7.70% Personal Breast Cancer No Personal Ovarian Cancer No Treatments None Family Cancers None LOCATION: [facility] BREAST COMPOSITION: Scattered areas fibroglandular density. [...] Antoine MD on 05/12/2022 at 08:59 Normal [facility] XR CHEST 2 Von 05-11-2022 XR [...] GIN DYSON Date: 2022-05-11 19:50 Normal [facility] XR HIP LT 2 3V W [...] by: ZIGGY YADAV Date: 2022-05-11 18:01 Normal [facility] PAP ACOG PANEL 2: 30 to 65on 04-30-2022 . . Normal [facility] Comment on above: Result Comment: Perf ormed at: WB Performed By: #### [id number] #### [facility] [address] [address] [address] Jessica Sainz Age Gdln ACOG Testing 30-65 Normal [facility] Comment on above: Performed By: #### [id number] #### [facility] [address] [address] [address] Jessica Sainz DIAGNOSIS: Comment Normal [facility] Comment on above: Result Comment: NEGA TIVE FOR INTRAEPITHELIAL LESION OR MALIGNANCY. CELLULAR CHANGES ASSOCIATED WITH ATROPHY ARE PRESENT. Performed at: WB Performed By: #### [id number] #### [facility] [address] [address] [address] Jessica Sainz HPV Aptima Negative Normal Negative [facility] Comment on above: Result Comment: This nucleic acid amplification test detects fourteen high-risk HPV types (16,18,31,33,35,39,45,51,52,56,58,59,66,68) without differentiation. Performed at: =G Performed By: #### [id number] #### [facility] [address] [place] [address] Dr. Jessica Sainz HPV Genotype Reflex Comment Normal [facility] Comment on above: Result Comment: Crit eria not met, HPV Genotype not performed. Performed at: WB Performed By: #### [id number] #### [facility] [address] [place] [address] Dr. Jessica Sainz Methodology: Comment Normal [facility] Comment on above: Result Comment: This liquid based ThinPrep(R) pap test was screened with the use of an image guided system. Performed at: WB Performed By: #### [id number] #### [facility] [address] [place] [address] Dr. Jessica Sainz Note: Comment Normal [facility] Comment on above: Result Comment: The Pap smear is a screening test designed to aid in the detection of premalignant and malignant conditions of the uterine cervix. It is not a diagnostic procedure and should not be used as the sole means of detecting cervical cancer. Both false-positive and false-negative reports do occur. . Performed at: WB Performed By: #### [id number] #### [facility] [address] [place] [address] Dr. Jessica Sainz Performed by: Comment Normal [facility] Comment on above: Result Comment: Yi Osborn, Pediatrics Hospitalist (ASCP) Performed at: WB Performed By: #### [id number] #### [facility] [address] [place] [address] Dr. Jessica Sainz Specimen adequacy: Comment Normal [facility] Comment on above: Result Comment: Sati sfactory for evaluation. Endocervical component may not be distinguished in cases of atrophy. Performed at: WB Performed By: #### [id number] #### [facility] [address] [place] [address] CHEST WO CONon [...] by: GAMA MI Date: 2022-01-17 09:30 Normal [facility] XR CHEST COMP MIN 4Von 01-07 [...] by: ELMER ANTOINE Date: 2022-01-07 07:18 Normal [facility] CBC AUTO DIFFon 12-08-2021 BASO # 0.1 103/ul Normal 0.0-0.1 [facility] Comment on above: Performed By: #### C CBFS #### [facility] [address] [place] [address] Dr. Jessica Sainz Basophils/100 WBC (Bld) 1.7 % Normal 0.2-2.0 [facility] Comment on above: Performed By: #### C CBFS #### [facility] [address] [place] [address] Dr. Jessica Sainz EO # 0.5 103/ul Normal 0.0-0.7 [facility] Comment on above: Performed By: #### C CBFS #### [facility] [address] [place] [address] Dr. Jessica Sainz Eosinophils/100 WBC (Bld) 7.9 % Critically high 0.9-7.0 [facility] Comment on above: Performed By: #### C CBFS #### [facility] [address] [place] [address] Dr. Jessica Sainz Erythrocyte distribution width (RBC) [Ratio] 13.9 % Normal 11.0-15.0 [facility] Comment on above: Performed By: #### C CBFS #### [facility] [address] [place] [address] Dr. Jessica Sainz Hematocrit (Bld) [Volume fraction] 41.7 % Normal 36.0-48.0 [facility] Comment on above: Performed By: #### C CBFS #### [facility] [address] [place] [address] Dr. Jessica Sainz Hemoglobin (Bld) [Mass/Vol] 13.0 g/dL Normal 12.0-16.0 [facility] Comment on above: Performed By: #### C CBFS #### [facility] [address] [place] [address] Dr. Jessica Sainz IG # 0.01 10e3/ul Normal 0.00-0.03 [facility] Comment on above: Performed By: #### C CBFS #### [facility] [address] [place] [address] Dr. Jessica Sainz IG % 0.2 % Normal 0.0-0.5 [facility] Comment on above: Performed By: #### C CBFS #### [facility] [address] [address] [address] Jessica Sainz LYMPH # 1.5 103/ul Normal 1.2-3.8 [facility] Comment on above: Performed By: #### C CBFS #### [facility] [address] [place] [address] Dr. Jessica Sainz Lymphocytes/100 WBC (Bld) 25.4 % Normal 20.5-60.0 [facility] Comment on above: Performed By: #### C CBFS #### [facility] [address] [place] [address] Dr. Jessica Sainz MANUAL DIFF REQ NO Normal [facility] Comment on above: Performed By: #### C CBFS #### [facility] [address] [place] [address] Dr. Jessica Sainz MCH (RBC) [Entitic mass] 27.4 pg Normal 26.7-34.0 [facility] Comment on above: Performed By: #### C CBFS #### [facility] [address] [place] [address] Dr. Jessica Sainz MCHC (RBC) [Mass/Vol] 31.2 g/dL Normal 29.9-35.2 [facility] Comment on above: Performed By: #### C CBFS #### [facility] [address] [place] [address] Dr. Jessica Sainz MCV (RBC) [Entitic vol] 87.8 fL Normal 81.0-99.0 [facility] Comment on above: Performed By: #### C CBFS #### [facility] [address] [place] [address] Dr. Jessica Sainz MONO # 0.5 103/ul Normal 0.3-0.8 [facility] Comment on above: Performed By: #### C CBFS #### [facility] [address] [place] [address] Dr. Jessica Sainz Monocytes/100 WBC (Bld) 8.1 % Normal 1.7-12.0 [facility] Comment on above: Performed By: #### C CBFS #### [facility] [address] [address] [address] Jessica Sainz NEUT # 3.3 103/ul Normal 1.4-6.5 [facility] Comment on above: Performed By: #### C CBFS #### [facility] [address] [place] [address] Dr. Jessica Sainz Neutrophils/100 WBC (Bld) 56.7 % Normal 43.0-75.0 [facility] Comment on above: Performed By: #### C CBFS #### [facility] [address] [place] [address] Dr. Jessica Sainz Platelet mean volume (Bld) [Entitic vol] 9.7 fL Normal 9.5-13.5 [facility] Comment on above: Performed By: #### C CBFS #### [facility] [address] [place] [address] Dr. Jessica Sainz PLT 266 103/ul Normal 150-450 [facility] Comment on above: Performed By: #### C CBFS #### [facility] [address] [place] [address] Dr. Jessica Sainz RBC 4.75 106/ul Normal 4.20-5.40 [facility] Comment on above: Performed By: #### C CBFS #### [facility] [address] [place] [address] Dr. Jessica Sainz WBC 5.8 103/ul Normal 4.0-11.0 [facility] Comment on above: Performed By: #### C CBFS #### [facility] [address] [place] [address] Dr. Jessica Sainz LIPID PROFILEon 12-08-2021 CHOL-HDL RATIO NORM SEE BELOW Normal [facility] Comment on above: Result Comment: 3.3 - 4.4 LOW RISK 4.4 - 7.1 AVERAGE RISK 7.1 - 11.0 MODERATE RISK >11.0 HIGH RISK Performed By: #### H SVCUL #### [facility] [address] [place] [address] Dr. Jessica Sainz Cholesterol [Mass/Vol] 208 mg/dL Critically high <=200 [facility] Comment on above: Performed By: #### H SVCUL #### [facility] [address] [address] [address] Jessica Sainz Cholesterol in HDL [Mass/Vol] 63 mg/dL Critically high 40-60 [facility] Comment on above: Performed By: #### H SVCUL #### [facility] [address] [address] [address] Jessica Sainz Cholesterol in LDL [Mass/Vol] 122.8 mg/dL Normal [facility] Comment on above: Performed By: #### H SVCUL #### [facility] [address] [address] [address] Jessica Sainz Cholesterol.total /Cholesterol in HDL [Mass ratio] 3.3 {ratio} Normal [facility] Comment on above: Performed By: #### H SVCUL #### [facility] [address] [address] [address] Jessica Sainz HDL NORMAL > or = 60 mg/dl - LO W CARDIOVASCULAR RISK <40 mg/dl - HIGH CARDIOVASCULAR RISK Normal [facility] Comment on above: Performed By: #### H SVCUL #### [facility] [address] [address] [address] Jessica Sainz LDL CALC NORMAL SEE BELOW Normal [facility] Comment on above: Result Comment: <100 mg/dl OPTIMAL 100 - 129 mg/dl NEAR OR ABOVE OPTIMAL 130 - 159 mg/dl BORDERLINE HIGH 160 - 189 mg/dl HIGH >190 mg/dl VERY HIGH Performed By: #### H SVCUL #### [facility] [address] [address] [address] Jessica Sainz Triglyceride [Mass/Vol] 111 mg/dL Normal <=150 [facility] Comment on above: Performed By: #### H SVCUL #### [facility] [address] [address] [address] Jessica Sainz VLDL CALC 22.2 mg/dL Normal [facility] Comment on above: Performed By: #### H SVCUL #### [facility] [address] [address] [address] Jessica Sainz PROF 14(COMP METB)on 022 Albumin [Mass/Vol] 4.0 g/dL Normal 3.4-5.0 [facility] Comment on above: Performed By: #### H SVCUL #### [facility] [address] [place] [address] Dr. Jessica Sainz Albumin/Globulin [Mass ratio] 1.0 {ratio} Normal [facility] Comment on above: Performed By: #### H SVCUL #### [facility] [address] [address] [address] Jessica Sainz ALP [Catalytic activity/Vol] 111 U/L Normal 46-116 [facility] Comment on above: Performed By: #### H SVCUL #### [facility] [address] [place] [address] Dr. Jessica Sainz ALT [Catalytic activity/Vol] 21 U/L Normal 14-59 [facility] Comment on above: Performed By: #### H SVCUL #### [facility] [address] [address] [address] Jessica Sainz Anion gap [Moles/Vol] 11.5 mmol/L Normal [facility] Comment on above: Performed By: #### H SVCUL #### [facility] [address] [place] [address] Dr. Jessica Sainz AST [Catalytic activity/Vol] 16 U/L Normal 15-37 [facility] Comment on above: Performed By: #### H SVCUL #### [facility] [address] [place] [address] Dr. Jessica Sainz Bilirubin [Mass/Vol] 0.4 mg/dL Normal 0.2-1.0 [facility] Comment on above: Performed By: #### H SVCUL #### [facility] [address] [place] [address] Dr. Jessica Sainz Calcium [Mass/Vol] 9.2 mg/dL Normal 8.5-10.1 [facility] Comment on above: Performed By: #### H SVCUL #### [facility] [address] [place] [address] Dr. Jessica Sainz Chloride [Moles/Vol] 102 mmol/L Normal 98-107 [facility] Comment on above: Performed By: #### H SVCUL #### [facility] [address] [address] [address] Jessica Sainz CO2 [Moles/Vol] 29.8 mmol/L Normal 21.0-32.0 [facility] Comment on above: Performed By: #### H SVCUL #### [facility] [address] [address] [address] Jessica Sainz Creatinine [Mass/Vol] 0.62 mg/dL Normal 0.55-1.02 [facility] Comment on above: Performed By: #### H SVCUL #### [facility] [address] [place] [address] Dr. Jessica Sainz EGFR-AF IVORIAN >60 Normal >=60 [facility] Comment on above: Performed By: #### H SVCUL #### [facility] [address] [address] [address] Jessica Sainz EGFR-NON AF IVORIAN >60 Normal >=60 [facility] Comment on above: Performed By: #### H SVCUL #### [facility] [address] [place] [address] Dr. Jessica Sainz Globulin (S) [Mass/Vol] 4.2 g/dL Normal [facility] Comment on above: Performed By: #### H SVCUL #### [facility] [address] [place] [address] Dr. Jessica Sainz Glucose [Mass/Vol] 92 mg/dL Normal 74-106 [facility] Comment on above: Performed By: #### H SVCUL #### [facility] [address] [address] [address] Jessica Sainz Potassium [Moles/Vol] 4.3 mmol/L Normal 3.5-5.1 [facility] Comment on above: Performed By: #### H SVCUL #### [facility] [address] [place] [address] Dr. Jessica Sainz Protein [Mass/Vol] 8.2 g/dL Normal 6.4-8.2 [facility] Comment on above: Performed By: #### H SVCUL #### [facility] [address] [place] [address] Dr. Jessica Sainz Sodium [Moles/Vol] 139 mmol/L Normal 136-145 [facility] Comment on above: Performed By: #### H SVCUL #### [facility] [address] [place] [address] Dr. Jessica Sainz Urea nitrogen [Mass/Vol] 16.0 mg/dL Normal 7.0-18.0 [facility] Comment on above: Performed By: #### H SVCUL #### [facility] [address] [place] [address] Dr. Jessica Sainz Urea nitrogen/Creatini ne [Mass ratio] 25.8 mg/mg Normal [facility] Comment on above: Performed By: #### H SVCUL #### [facility] [address] [place] [address] Dr. Jessica Sainz TSHon 12-08-2021 TSH 1.419 uIU/mL Normal 0.358-3.740 [facility] Comment on above: Performed By: #### H SVCUL #### [facility] [address] [place] [address] Dr. Jessica Sainz VITAMIN D 25 OHon 12-08-2021 VIT D 25-OH 39.3 ng/mL Normal [facility] Comment on above: Performed By: #### V ITAD #### [facility] [address] [place] [address] Dr. Jessica Sainz VIT D RANGES SEE BELOW Normal [facility] Comment on above: Result Comment: <20 ng/mL Vit D deficient 20 - <30 ng/mL Vit D insufficient 30 - 100 ng/mL Vit D sufficient >100 ng/mL Potential Toxicity Performed By: #### V ITAD #### [facility] [address] [place] [address] Dr. Jessica Sainz ACID FAST SMEAR AND CXon Acid Fast Culture Negative Normal [facility] Comment on above: Result Comment: No a nolan fast bacilli isolated after 6 weeks. Performed By: #### H SVCUL #### [facility] [address] [address] [address] Jessica Sainz Acid Fast Smear Negative Normal [facility] Comment on above: Performed By: #### H SVCUL #### [facility] [address] [place] [address] Dr. Jessica Sainz AFB Specimen Processing Direct Inoculation Normal [facility] Comment on above: Performed By: #### H SVCUL #### [facility] [address] [place] [address] Dr. Jessica Sainz FUNGAL CULTUREon 11-10-2021 Fungus (Mycology) Culture Final report [facility] Comment on above: Performed By: #### C CBFS #### [facility] [address] [place] [address] Dr. Jessica Sainz Fungus Stain Final report Normal [facility] Comment on above: Performed By: #### C CBFS #### [facility] [address] [place] [address] Dr. Jessica Sainz Result 1 Comment Normal [facility] Comment on above: Result Comment: JOJO/ Calcofluor preparation: no fungus observed. Performed By: #### C CBFS #### [facility] [address] [place] [address] Dr. Jessica Sainz Result Comment: No y east or mold isolated after 4 weeks. BODY FLUID CULTUREon 022 Anaerobic Culture, Extended Incubation Final report Normal [facility] Comment on above: Performed By: #### H SVCUL #### [facility] [address] [place] [address] Dr. Jessica Sainz Body Fluid Culture, Sterile Final report Normal [facility] Comment on above: Performed By: #### H SVCUL #### [facility] [address] [place] [address] Dr. Jessica Sainz Result 1 Comment Normal [facility] Comment on above: Result Comment: No g rowth in 56 - 72 hours. Performed By: #### H SVCUL #### [facility] [address] [place] [address] Dr. Jessica Sainz Result Comment: No a naerobes recovered. No anaerobic growth after 14 days LAB DAVID MIS TESTon 022 Referral Lab Comment Normal [facility] Comment on above: Result Comment: [employer] [facility] Performed By: #### L CMISC #### [facility] [address] [place] [address] Dr. Jessica Sainz Referral Test Code or Mnemonic Comment Normal [facility] Comment on above: Result Comment: 2002 Performed By: #### L CMISC #### [facility] [address] [place] [address] Dr. Jessica Sainz Referral Test Name Comment Normal [facility] Comment on above: Result Comment: RHEU MATOID FACTOR Performed By: #### L CMISC #### [facility] [address] [place] [address] Dr. Jessica Sainz Referral Test Results Comment Normal [facility] Comment on above: Result Comment: Refe rence lab report sent via fax. Performed By: #### L CMISC #### [facility] [address] [place] [address] Dr. Jessica Sainz PH, BODY FLUIDon 10-15-2021 pH, Body Fluid 7.6 Normal Not Estab. [facility] Comment on above: Result Comment: The reference interval(s) and other method performance specifications have not been established for this body fluid. The test result must be integrated into the clinical context for interpretation. Performed By: #### B DYFLPH #### [facility] [address] [place] [address] Dr. Jessica Sainz AMYLASE, BODY FLUIDon 2021 Amylase [Catalytic activity/Vol] 40 U/L Normal [facility] Comment on above: Result Comment: ____ : BODY FLUID TYPE : AMYLASE : : : : : Lymph : 50 - 83 : : : : : Peritoneal : : : Fluid : 88 - 109 : : : : : Saliva : : : (Mixed Glands) : [id number] - [id number] : : : : . [place] W, Cher V. Reference Intervals for Adults and Children 2008. Ninth Edition (V9.1) [employer], [facility]; [place]: December 2008. The method performance specifications have not been established for this test in body fluid. The test result should be integrated into the clinical context for interpretation. Performed By: #### H SVCUL #### [facility] [address] [place] [address] Dr. Jessica Sainz CELL COUNT BODY FLUIDon 09-25 Clarity, Serous Clear Normal Clear [facility] Comment on above: Performed By: #### C CBFS #### [facility] [address] [place] [address] Dr. Jessica Sainz Color, Serous Straw Normal [facility] Comment on above: Result Comment: [place] rless to Pale Yellow/Straw Performed By: #### C CBFS #### [facility] [address] [place] [address] Dr. Jessica Sainz Comments: Normal [facility] Comment on above: Performed By: #### C CBFS #### [facility] [address] [place] [address] Dr. Jessica Sainz Eosinophils/100 WBC (Bld) 8 % Normal Not Estab. [facility] Comment on above: Performed By: #### C CBFS #### [facility] [address] [place] [address] Dr. Jessica Sainz Lining Cells, Serous Normal [facility] Comment on above: Performed By: #### C CBFS #### [facility] [address] [address] [address] Jessica Sainz Lymphocytes/100 WBC (Bld) 27 % Normal Not Estab. [facility] Comment on above: Performed By: #### C CBFS #### [facility] [address] [address] [address] Jessica Sainz Macrophages, Serous 39 % Normal Not Estab. [facility] Comment on above: Performed By: #### C CBFS #### [facility] [address] [address] [address] Jessica Sainz Nucleated Cells, Serous 1586 /mm3 Critically high 0-499 [facility] Comment on above: Result Comment: Pleu ral Fluid, with <1000 Nucleated cells/uL has been associated with transudates while >1000 uL may be seen in exudates. Performed By: #### C CBFS #### [facility] [address] [address] [address] Jessica Sainz Polys, Serous 26 % Critically high 0-24 [facility] Comment on above: Performed By: #### C CBFS #### [facility] [address] [place] [address] Dr. Jessica Sainz RBC, Serous Rare Normal Not Estab. [facility] Comment on above: Performed By: #### C CBFS #### [facility] [address] [place] [address] Dr. Jessica Sainz GLUCOSE BODYFLUIDon 10-14-19 22 Glucose, Body Fluid 91 mg/dL Normal [facility] Comment on above: Result Comment: ____ [...] Intervals for Adults and Children 2008. Ninth edition (V9.1) [employer], [facility]; [place]: December 2008. The reference intervals and other method performance specifications have not been established for this test. The test result should be integrated into the clinical context for interpretation. Performed By: #### B FGLUC #### [facility] [address] [place] [address] Dr. Jessica Sainz LACTIC ACID DEHYDROGENASE (L D), BODY FLUon 10-13-2021 LD, Body Fluid 220 IU/L Normal [facility] Comment on above: Result Comment: ____ [...] : <240 : : : : . Cher Cid V. Reference Intervals for Adults and Children 2007. Ninth Edition (V9.1) [employer], [facility]; [place]: December 2008. The reference intervals and other method performance specifications have not been established for this test. The test result should be integrated into the clinical context for interpretation. Performed By: #### C CBFS #### [facility] [address] [place] [address] Dr. Jessica Sainz PROTEIN, TOTAL, BODY FLUIDon 10-13-2021 Protein, Body Fluid 4.4 g/dL Normal [facility] Comment on above: Result Comment: ____ [...] - 0.9 : : : : . Cher Cid V. Reference Intervals for Adults and Children 2007. Ninth Edition (V9.1) [facility]; [place]: December 2008. The method performance specifications have not been established for this test in body fluid. The test result should be integrated into the clinical context for interpretation. Performed By: #### T PBF #### [facility] [address] [place], [place] [address] Dr. Jessica Sainz CYTOLOGYon 2021 SENT TO REF LAB 2021 Normal [facility] Comment on above: Performed By: #### C YTO #### [facility] [address] [place], [place] [address] Dr. Jessica Sainz XR CHEST 1 Von [...] GAMA MI Date: 2021 10:58 Normal [facility] CT CHEST WO CONon 09-30-2021 CT [...] by: [place]AMA [place] Date: 2021-09-30 16:57 [facility] (GYNML) ---CANDELARIA FOSTER ([id number]) 1960 FDate Time Provider Department11/18/17 KARINA WILLIS (RN) [facility] During your visit today, we recorded the following information about you:Karina Willis RN, RN 11/18/2017 11:56 AM SignedPatient 2 [...] medical team for review and adviseMary TREMAYNE Cheung.PLANT OPERATIONS WORKER 11/18/2017 1:04 PM SignedPatients commonly experience an [...] 9 - ItchingDate Reviewed: 11/03/2017Reviewed by: Erick Knox) JOHN Barrientos - Fully AssessedReason for Visit: [...] Status:Closed by JENNA CHEUNG CNP on 11/18/17 [facility] ANES Darek 11-03-2017 ANES POST HNO ID: [id number] thor: Delisa Henderson AService: AnesthesiologyAuthor Type: AnesthesiologistType: [...] 03, 2017 : 9:31 AM PAGER/CONTACT #: [facility] ANES PREOPon 11-03-2017 ANES PREOP HNO ID: [id number] thor: Delisa Henderson AService: AnesthesiologyAuthor Type: AnesthesiologistType: Anesthesia PreOpFiled: 11/03/2017 8:03 AMNote Text:REGIONAL ANESTHESIOLOGY DAY OF SURGERY NOTEPATIENT NAME: Candelaria FosterMRN: [id number]: 1960Procedure(s) (LRB):VULVECTOMY PARTIAL SIMPLE (Left)Surgeon(s):Tamia StreetdiEstimated body mass index is 30.18 kg/m? as [...] 10/19/2017Creatinine 0.74 10/19/2017EKG:normal EKG, normal sinus rhythmVitals: [id number]: 147/79Pulse: 69Resp: 16Temp: 36.7 ?C (98.1 ?F)TempSrc: [...] arteries- HYSTERECTOMY HX- PAST SURGICAL HISTORY OF [place] Teeth Extraction- PAST SURGICAL HISTORY OF [facility] on scalpFAMILY HISTORYProblem Relation Age of Onset- Heart Father d. @ 42 of [place]- Heart Paternal Grandfather d. @ 45 of [place]- Heart Brother Cardiac Stent Placement- Heart Sister- [...] directed every 24 hours.Inpatient medications reviewed in EPIC.I have interviewed and examined the patient. I have reviewed the medicalrecord and/or the pre-anesthesia evaluation, pertinent labs, and testresults.Significant changes in the patient's condition since the History andPhysical, not otherwise documented in primary service progress notes: NoThis contains updated information obtained within 48 hours ofSurgery/Procedure.SIGNATUR E: Mikal Ferrer CRNA PATIENT NAME: Candelaria FosterDATE: November 03, 2017 : 7:18 AM PAGER/CONTACT #:Attending Note:Batres findings confirmed. Patient examined. Discussed with the MILLING MACHINE SET UP OPERATOR andthe patient. Plan as outlined.ab Donny Lee 20178:03 AM [facility] BRIEF OP NOTon 11-03-2017 BRIEF OP NOT HNO ID: [id number] thor: Jorge Brennan: Gynecology OncologyAuthor Type: PhysicianType: Brief Op NoteFiled: 11/03/2017 8:24 AMNote Text:BRIEF OP NOTELOG ID: [id number]/Procedure Date: 11/03/2017Incision/Procedure Start Time: 8:04 AMIncision Close/Procedure End Time: 8:18 AMSurgeon(s)/Proceduralist(s ) and Park Guide(s):Surgeon(s) and Role: * Tamia Torres - Primary [...] 03, 2017 : 8:22 AM PAGER/CONTACT #: [facility] HISTORY PHYSICALon 8 HISTORY PHYSICAL HNO ID: [id number] thor: Clair Diaz (Res)Service: Gynecology OncologyAuthor Type: [...] November 03, 2017 : 7:30 AM PAGER: [phone] [facility] NURSING PROGon 11-03-2017 NURSING PROG HNO ID: [id number] thor: Elma Frazier (Rn), RNService: NursingAuthor Type: Registered NurseType: Nursing Progress NoteFiled: 11/03/2017 8:42 AMNote Text: Nursing Progress NotePatient Name: Candelaria FosterMRN: [id number] Location: [facility] OR POOL/[facility] OR POOL 0828 Pt arrived from OR and attached to PACU monitor. Assessmentcompleted see assessment section. No signs of bleeding noted.This note was completed by: Elma Frazier RN [facility] OPERATIVE NOon 11-03-2017 OPERATIVE NO HNO ID: [id number] thor: Thang Torres: Gynecology OncologyAuthor Type: PhysicianType: Operative ReportFiled: 11/04/2017 1:12 PMNote Text:OPERATIVE/PROCEDURE REPORTLOG ID: [id number]/PROCEDURE DATE: 11/03/2017INCISION/PROCEDURE START TIME: 8:04 AMINCISION CLOSE/PROCEDURE END TIME: 8:18 AMSURGEON(S)/PROCEDURALIST(S ) AND FIELD TRAFFIC INVESTIGATOR(S):Surgeon(s) and Role: * Tamia Torres - Primary [...] 04, 2017 : 1:09 PM PAGER/CONTACT #: [facility] PLAN OF CAREon 11-03-2017 PLAN OF CARE HNO ID: [id number] thor: Rupesh (Soundstache)Dorinda: (none)Author Type: TechnicianType: Plan of CareFiled: 11/04/2017 9:27 AMNote Text:PHARMACY BEDSIDE DELIVERY SERVICEPatient Name: Candelaria FosterMRN: [id number] marked outpatient medications were filled and deliveredMedication [...] them or your Primary Care Provider.Iveth Goddard (Soundstache)PAGER: [phone] 2017 9:27 AM [facility] PLAN OF CARE HNO ID: [id number] thor: Rupesh HillSoundstache)Dorinda: (none)Author Type: TechnicianType: Plan of CareFiled: 11/03/2017 10:31 AMNote Text:Pharmacy Discharge Medication Service:This patient has elected to [facility] their discharge [facility]. Theprescriptions are currently being processed. A follow-up note will beentered once the prescriptions have been filled and delivered to thepatient. Please contact me with any questions or updates to the patient'sdischarge medications.Iveth Goddard (Soundstache)DCT Contact Info: [phone] [facility] PLAN OF CARE HNO ID: [id number] thor: Rupesh (Soundstache), BrendenlyService: (none)Author Type: TechnicianType: Plan of CareFiled: 11/03/2017 10:31 AMNote Text:LABOR RELATIONS CONSULTANT BEDSIDE DELIVERY SURVEY1. Patient to use [facility] Bedside Delivery - YES2. If fax, patient would like us to fax prescriptions to [facility] a. Pharmacy: b. Location: c. Phone:3. Insurance card on file - YES4. Credit card for payment - N/A [facility] PT EDon 11-03-2017 PT ED HNO ID: [id number] thor: Kamla Zambrano (Rn), RNService: NursingAuthor Type: Registered NurseType: Patient EducationFiled: 11/03/2017 6:43 AMNote Text:PRE OP LEARNING ASSESSMENTPROCEDURE/SURGERY: SURGERY:READINESS TO LEARNCOGNITIVE ABILITY: Alert and orientedMOTIVATION TO LEARN: EagerFAMILY SUPPORT: Unable to assess - Family not presentPATIENT LEARNS BEST BY: Individual InstructionFACTORS AFFECTING LEARNING: NonePHYSICAL LIMITATIONS AFFECTING LEARNING: NoneElectronically Signed By: Kamla Zambrano RN In Department: [facility] OPERATING ROOM [facility] SURGICAL PATHOLOGYon 018 SURGICAL PATHOLOGY [facility]: [id number] Physician: TAMIA TORRES MD FINAL DIAGNOSIS1. Right peroneal lesion, biopsy (A) - Benign squamous epithelium, negativefor dysplasia.- Chronic spongiotic dermatitis. 2. Left periclitoral lesion, biopsy (B) - Acute and chronic inflammationwith focal ulceration (see comment). BY/glw 11/07/2017 COMMENTImmunostaining on B3 shows that epithelial [...] sequential order from 12 o'clock to 6 o'clock.TATE/shayan 11/03/2017 Gross examination performed at [facility], [address] [address] of Report: 11/08/2017Date of Procedure: 11/03/2017Date of Receipt: 11/03/2017Submitted by: TAMIA TORRES MDLocation: FVORDiagnostic interpretation performed at [address] [address]. [facility] Comment on above: Performed By: #### P ATHS ####[id number] [place] [address] NURSING PROGon 10-26-2017 NURSING PROG HNO ID: [id number] thor: Bambi (Rn) ALLYSON Lyonervice: General SurgeryAuthor Type: Registered NurseType: Nursing Progress NoteFiled: 10/26/2017 4:26 PMNote Text:PACC Nurse Progress NoteHistory AND Physical:PACC Visit Date: 6-77-66Audorlgv HANDP Date: N/AED visit Date: N/AOutside HANDP Scanned Date: N/ALabs Within Last 6 Months:CBC: Date 10-19-17BMP/CMP: Date 6-55-04Bhzjepj Within Last 12 Months:N/ACardiac Testing:EKG in last 12 Months: Yes: Date: 10-19-17, Comment: Confirmed in EPIC.Last Menstrual Period:LMP Date: UnknownPostmenopausal >1yr: Yes,S/P Hysterectomy: YesBMI Percentile (PEDS):N/ARisk Assessment:N/AAnesthesia Review:N/ANarrative:N/APre-o p Considerations:N/AChart Check:Juventino Lyon RNMay 2017 4:25 PM [facility] HOSPon 10-05-2017 HOSP Patient:Sumi Foster LMRN: [...] 3.7HEMA* 43.3 % 10/19/2017 46.0 36.0Progress Notes (PLATFORM ATTENDANT [facility]):Aleena Cuenca (Rn), RN 10/31/2017 3:20 [...] clean and dry.Advised I would discuss with PLANT OPERATIONS WORKER and call her backShe also states that [...] else she should do. Will route to CNPs to adviseVAleena prasad (Rn), RN 11/01/2017 4:33 PM SignedInformed pt of PLANT OPERATIONS WORKER's message to go ahead and use prep H but to call if odorcontinuesShe states hemorrhoids are improvingShe is unsure of vein on clitoris. Says it's still red but maybe slightlyimprovedShe will call tomorrow morning with update to see if she should be evaluatedbefore surgeryKarina Willis (Rn), RN 11/02/2017 10:17 AM SignedPatient called office, stating hemorrhoids getting better, slight odor from periarea, clitoris area swollen and wants to know if she can use cortizone creamthere.Will update medical teamGalina Dowell (Maintenance Plumber) 11/02/2017 3:08 PM SignedWould not advise any creams in anticipation of procedure for tomorrowThNano Bentley (Rn), RN 11/02/2017 3:49 PM SignedLeft vm for patient in regards to message below.Progress Notes (PLATFORM ATTENDANT [facility]):Aleena Cuenca (Rn), RN 10/26/2017 1:57 PM SignedLeft vm for pt to call office to discuss pre-op instructions prior to surgerywith Dr. Torres on 11/03/17WiNimco Cornejo RN 10/27/2017 4:00 PM SignedPatient returning call for pre op instructions.Procedure: VULVECTOMY PARTIAL SIMPLEPhysician: Tamia TorresLocation: [facility]: [phone] AND Time: 11/03/2017MEDICAL CLEARANCE: No CARDIAC CLEARANCE: NoPRE ADMISSION TESTIN10/19/17 AT: [facility]): [phone] FOLLOWING WAS EVALUATED Motivation To Learn: Interested [...] Celebrex MotrinAggrenox Clinoril Naprosyn(naproxen)Agrylin NSAIDS Pepto-BismolAleve Ecotrin PersantineAlka-[place] Excedrin PlaquenilAnacin Heparin PlavixAscriptin Herbals PletalAspergum Ibuprofen [...] - IV pain medication after surgery, IV BAR USEFUL OR BUSSER if ordered by MD,discharged home with a prescription for PO pain medication, pain managementafter surgery, side effects of pain medication (including constipation,dizziness, drowsiness, and medication interactions).DVT PROPHYLAXIS - Early ambulation, SCDs, injectable anticoagulants (heparin,lovenox, etc)RESPIRATORY - Incentive spirometer, coughing/deep breathing exercises,ambulation.RETURN TO WORK - As directed by physician, please send any [facility] 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.SYMPTOMS TO NOTIFY MD - Fever, chills, nausea, vomiting, increased or severepain, heavy vaginal bleeding, foul smelling vaginal drainage, pain or swellingin extremities.URGENT SYMPTOMS - Call 911 or go to ER if any shortness of breath, difficultybreathing, or chest pain.HOW TO CONTACT PHYSICIAN - Physician's office phone number given to patient, ifafter hours patient instructed to call block operator and ask for the doctor material control clerk.Patient and family have phone number to call 24 hours/day.Patient Evaluation: Verbalizes understandingPatient and/or family express understanding of upcoming surgery and theoperative process. Questions answered.Follow Up Plan: Follow up as neededSupplemental Material Given:Pre-operative teaching packet provided to the patient:INPATIENT/OUTPATIENT printed instructions; Post-operative instruction sheet,bowel prep instruction sheetFor questions contact: Tamia Torres's office at [phone] By Nimco Garza RN [facility] Vital Signs Date Time Vital Sign Value Performing Clinician Facility 12-16-2023 11:27-0400 Body height 157.48 cm [facility] 12-16-2023 11:27-0400 Body mass index (BMI) [Ratio] 27.3 kg/m2 [facility] 12-16-2023 11:27-0400 Body weight 67.75 kg [facility] 12-16-2023 11:27-0400 Diastolic blood pressure 81 mm[Hg] [facility] 12-16-2023 11:27-0400 Heart rate 75 /min [facility] 12-16-2023 11:27-0400 Respiratory rate 12 /min [facility] 12-16-2023 11:27-0400 Systolic blood pressure 143 mm[Hg] [facility] 12-14-2022 11:00-0400 Body height 156.21 cm Clint Ball Other [facility] Other 12-14-2022 11:00-0400 Body mass index (BMI) [Ratio] 28.25 kg/m2 Clint [employer] Other [facility] Other 12-14-2022 11:00-0400 Body weight 68.95 kg Clint Ball Other [facility] Other 12-14-2022 11:00-0400 Diastolic blood pressure 73 mm[Hg] Clint Veras Other [facility] Other 12-14-2022 11:00-0400 Respiratory rate 12 /min Clint Veras Other [facility] Other 12-14-2022 11:00-0400 Systolic blood pressure 112 mm[Hg] Clint Veras Other [facility] Other Encounters Encounter Date Encounter Type Care Provider Facility Start: 03-06-2024 End: 03-06-2024 ambulatory CHAY ALEJANDRE Not Available Start: 01-04-2024 End: 01-04-2024 ambulatory CHAY ALEJANDRE Not Available Start: 12-16-2023 End: 12-16-2023 ambulatory [facility] Work Phone: Start: 12-16-2023 End: 12-16-2023 Encounter for general adult medical examination without abnormal findings [facility] Start: 12-16-2023 End: 12-16-2023 Patient encounter procedure Count Includes [facility] Work Phone: Start: 12-07-2023 End: 12-07-2023 ambulatory CHAY ALEJANDRE Not Available Start: 11-07-2023 End: 11-07-2023 ambulatory MIKAL LEMUS Not Available Start: 05-16-2023 End: 05-16-2023 ambulatory NIMCO TRIMBLE Not Available Start: 01-21-2023 End: 01-21-2023 ambulatory Clint Veras Other [facility] Other Start: 01-21-2023 Telephone encounter [facility] Start: 12-15-2022 End: 12-15-2022 ambulatory Clint Veras Other [facility] Other Start: 12-15-2022 Telephone encounter [facility] Start: 12-14-2022 End: 12-14-2022 ambulatory Clint Veras Other [facility] Other Start: 12-14-2022 Encounter for genera l adult medical examination without abnormal findings Clint Veras [facility] Start: 12-14-2022 Periodic preventive med est patient 40-64yrs Clint Veras [facility] Start: 07-16-2022 End: 07-16-[address] SHARMAINE CHAUDHARI . [facility] Other Start: 07-16-2022 Telephone encounter Clint Mantilla [employer] Super[employer] Start: 06-27-2022 End: 07-13-[address] CLINT VERAS Facility:[facility] Start: 06-23-2022 End: 06-23-2022 ambulatory Leon Kohli Facility:[facility] Start: 06-22-2022 End: 06-22-2022 ambulatory Leon Kohli Other [facility] Other Start: 06-22-2022 Telephone encounter Leon Mantilla [facility] Start: 06-16-2022 End: 06-26-[address] CLINT VERAS Facility:[facility] Start: 06-08-2022 End: 06-08-2022 ambulatory David Lemus Other [facility] Other Start: 06-08-2022 Office outpatient ne w 45 minutes David Lemus [facility] Start: 05-27-2022 Gynecological examination normal Clint Veras Other [facility] Other Start: 05-27-2022 End: 05-27-[address] CLINT VERAS Facility:[facility] Start: 05-14-2022 End: 05-15-[address] CLINT VERAS Facility:[facility] Start: 05-11-2022 End: 05-12-[address] CLINT VERAS Facility:[facility] Start: 04-23-2022 End: 04-23-[address] SHARMAINE CHAUDHARI . Facility:[facility] Start: 02-22-2022 End: 02-22-2022 ambulatory Leon Kohli Other [facility] Other Start: 02-22-2022 Telephone encounter Leon MAYORGA G [employer] Start: 01-16-2022 End: 01-17-[address] GAMA [place] Facility:[facility] Start: 01-06-2022 End: 01-07-[address] ELMER ANTOINE Facility:[facility] Start: 12-10-2021 Encounter for genera l adult medical examination without abnormal findings DR CLINT VERAS [facility] Start: 12-08-2021 End: 12-09-[address] CLINT VERAS Facility:[facility] Start: 12-08-2021 End: 12-09-2021 Encounter for general adult medical examination without abnormal findings DR CLINT VERAS Facility:[facility] Start: 12-08-2021 Adult health examination Clint Veras Other [facility] Other Start: 2021 End: [address] GAMA [place] Facility:[facility] Start: 09-30-2021 End: 10-01-[address] CLINT VERAS Facility:[facility] Start: 11-03-2017 End: 11-03-2017 Ambulatory [facility] Procedures Date Procedure Procedure Detail Performing Clinician Start: 03-19-2020 Screening for malign ant neoplasm of breast Clint Veras Other Start: 10-28-2017 General examination of patient Clint Veras Other Start: 06-13-2017 Hypertension screening Clint Veras Other Depression screening Saige n Marissa Other Screening for malign ant neoplasm of breast Clint Veras Other Screening for osteoporosis B enhamilton Veras Other Plan of Treatment Date Care Activity Detail Author Comprehensive metabo lic 2000 panel - Serum or Plasma [facility] Immunizations Immunization Date Immunization Notes Care Provider Bandar sharma 09-03-2020 COVID-19 Vaccine Mejia ssen - Documentation Purposes Only Clint Marissa Other [facility] Payers Date Payer Category Payer Unknown [id number] 2022 Unknown [id number] 1959 Unknown [id number] 2.16.840.1.764175.3.579.2.593 1959 Unknown [id number] 2.16.840.1.914640.3.579.2.593 1959 Unknown [id number] 2.16.840.1.885172.3.579.2.593 1959 Unknown [id number] 2.16.840.1.191578.3.579.2.593 1959 Unknown [id number] 2.16.840.1.715452.3.579.2.593 1959 Unknown [id number] 2.16.840.1.322673.3.579.2.593 1959 Unknown [id number] 2.16.840.1.447895.3.579.2.593 1959 Unknown [id number] 2.16.840.1.418132.3.579.2.593 1959 Unknown [id number] 2.16.840.1.497297.3.579.2.593 1959 Unknown [id number] 2.16.840.1.343401.3.579.2.593 1959 Unknown [id number] 2.16.840.1.023907.3.579.2.593 1959 Unknown [id number] 2.16.840.1.417792.3.579.2.593 1959 Unknown [id number] 2.16.840.1.403597.3.579.2.593 1959 Unknown [id number] 2.16.840.1.329774.3.579.2.1259 1959 Unknown [id number] 2.16.840.1.199392.3.579.2.1259 1959 Unknown [id number] 2.16.840.1.389732.3.579.2.9 1959 Unknown [id number] 2.16.840.1.288965.3.579.2.1259 1959 Unknown [id number] 2.16.840.1.701181.3.579.2.1259 1959 Unknown [id number] 2.16. 840.1.257564.19 1959 Unknown [id number] Private Health Insurance [facility] [id number] Self-pay Self Pay [id number] Social History Date Type Detail Facility Sex Assigned At [facility] Other Start: [facility]-23-20[facility] Start: 1960 Sex Assigned At Female F [facility] Evaluation note 01-21-2023 Note Date & Type Note Facility 01-21-2023 Evaluation note Encounter Date Diagnosis Assessment Notes Dec, Cigarette nicotine dependence without complication (ICD-10 - F17.210) LDCT lungs w/o suspicious nodules - 12/2022Dec, Mucopurulent chronic bronchitis (ICD-10 - J41.1) [facility] Other Evaluation note 12-14-2022 Note Date & [...] use, the patient reduces the risk for VA, CVA, HTN, cardiac dysrhythmias and sudden cardiac [...] repeat scope in 5years Nov, Atherosclerosis of [place] artery of both lower extremities with intermittent claudication (ICD-10 - I70.213) Inspect feet daily, walk daily. Continue ASA and Statin therapy [facility] Other History general Narrative - Reported 07-18-2022 Note Date & Type Note Facility 07-18-2022 History general N arrative - Reported Type Medical History hypertension Medical History hyperlipidemia Medical History fibromyalgia Surgical History hysterectomy Surgical History colonoscopy 07/18/22 [facility] Other History general Narrative - Reported 07-18-2022 Note Date & Type Note Facility 07-18-2022 History general N arrative - Reported Type Medical History hypertension Medical History hyperlipidemia Medical History fibromyalgia Surgical History hysterectomy Surgical History colonoscopy 07/18/22 Hospitalization History see surgical history [facility] Other Evaluation note 06-08-2022 Note Date & [...] Above note written by Rashaad Alejandre MA, Car Supervisor. Edited and approved by Dr. David Lemus [...] negative findings were considered in medical decision-making. [facility] Other Evaluation note 02-22-2022 Note Date & Type Note Facility 02-22-2022 Evaluation note Encounter Date Diagnosis Assessment Notes Jan, Screening for colon cancer (ICD-10 - Z12.11) [facility] Other Evaluation note Note Date & Type Note Facility Evaluation note No Information [facility] Other Evaluation note Note Date & Type Note Facility Evaluation note Diagnosis Onset Date Chronic bronchitis acute ELADIO (generalized anxiety disorder) acute Hypertension acute Nicotine addiction acute TARA (obstructive sleep apnea) acute Peripheral artery disease [facility] Wellness examination noneact jason [facility] Work Phone: History general Narrative - Reported Note Date & Type Note Facility History general Narrative - Reported Type Medical History hypertension Medical History hyperlipidemia Medical History fibromyalgia Surgical History hysterectomy [facility] Other Summary Purpose Family History No Family History Records Found Relationship Condition Age at Onset Recorded Date/T vinnie Not Specified Graves' disease Unknown Ulcerative colitis Unknown Glaucoma Unknown Hypertension Unknown Basal cell carcinoma (BCC) Unknown father Myocardial infarction Unknown grandparent Myocardial infarction Unknown brother Hypertension Unknown History of coronary artery stent placement Unknown sister Deep vein thrombosis (DVT) Unknown Anxiety Unknown father Unknown Advance Directives No Advanced Directives Records Found Advance Directive Response Recorded Date/ Time Advance Directives No May 5:10pm Chief Complaint and Reason for Visit Chief Complaint Wellness Reason for Visit Chronic bronchitis ELADIO (generalized anxiety disorder) Hypertension Nicotine addiction TARA (obstructive sleep apnea) Peripheral artery disease Wellness examination Additional Source Comments INFORMATION SOURCE (unrecogn ized section and content) DATE CREATED AUTHOR 12/14/2017 [facility] DATE CREATED AUTHOR AUTHOR'S ORGANIZ ATION 06/23/2022 [facility] DATE CREATED AUTHOR AUTHOR'S ORGANIZ ATION 09/21/2022 [facility] DATE CREATED AUTHOR AUTHOR'S ORGANIZ ATION 03/07/2024 [facility] EPIC REASON FOR VISIT (unrecogniz ed section and content) MAIL PPWREF BY DR VERAS FOR Debbie UMBAR SPONDYLOSIS AND NUMBNESSClinical Acute IllnessCOLONOSCOPY REPORTSENTARA HALIFAX REGIONAL HOSPITALLab ResultsNo Information Care Teams (unrecognized sec tion [...] BE BASED ON THE PRIMARY CLINICAL RECORDS. [employer] [facility]. provides no warranty or guarantee of the accuracy or completeness of information in this document.
== END 2024-04-24 09:58 | disposition home or self-care (01) ==
LOC: CT 09:57
PROVIDERS: PCP Internal Medicine; Visit Provider Internal Medicine
DX: R59.0 Localized enlarged lymph nodes (principal); R91.8 Other nonspecific abnormal finding of lung field
CPT/HCPCS: 71250

== ENCOUNTER 2024-05-21 21:00 | Outpatient (REF) | payer OTHER, SELFPAY ==
--- OUTSIDE RECORDS SUMMARY | 2024-05-21 21:04 | XMS_ITS | CCD ---
Author Organization [facility] Care Team Providers Care Tonal Regulator Name Role Phone ANGELINATAMIA Unavailable Unavailable TAMIA Unavailable Unavailable Leon Kohli [...] buPROPion; Translations: [BUPROPION HCL] Drug Allergy AOF [facility] Repository (3 sources) caffeine; Translations: [CAFFEINE] Drug Allergy AOF, Unknown, Unknown Reaction [facility] Repository (1 source) cyclobenzaprine; Translations: [CYCLOBENZAPRINE HCL] Drug Allergy 018 [facility] Repository (1 source) PROPOXYPHENE N-ACETAMINOPHEN; Translations: [PROPOXYPHENE N-ACETAMINOPHEN] Propensity to adverse reactions to drug (disorder) [facility] Repository (8 sources) cyclobenzaprine; Translations: [Flexeril] Drug Allergy Unknown [facility] Repository (2 sources) buPROPion Drug Allergy WELLBUTRIN [facility] Repository (1 source) Darvocet-N 100 Drug allergy (disorder) [facility] Repository (2 sources) buPROPion Drug Allergy 024 Unknown, [facility] (2 sources) cyclobenzaprine Drug Allergy 017 CYCLOBENZAPRINE HCL Comment:Freetext Needs Updated., Hypertension, Comment:Rash [facility] (1 source) Propoxyphene Drug Allergy 018 DARVOCET [facility] Other (1 source) Allergies Reconciled Propensity to adverse reactions Unknown [facility] Other (1 source) patient allergy list reviewed by nurse or physicia Propensity to adverse reactions 019 Comment:Done [facility] Other (1 source) Flexeril *MUSCULOSKELETAL THERAPY AGENTS* Propensity to adverse reactions Comment:Rash [facility] Other (1 source) Darvocet A500 *ANALGESICS - OPIOID* Propensity to adverse reactions Unknown [facility] Other (1 source) Acetaminophen Drug Allergy 024 [...] Fluticasone Propionate (Flonase Allergy Relief) 50 mcg/actuation [place],Suspension Discontinued 2 SPRAY INTRANASAL Daily June 18, 2019 1:00am June 23, 2022 8:20am oxymetazoline hydrochloride 0.5 mg/ml nasal spray (1 source) Start: 06-18-2019 End: 06-18-2019 Oxymetazoline (Afrin (Oxymetazoline)) 0.05 % [place],Non-Aerosol Discontinued 2 SPRAY INTRANASAL Q12H June 18, [...] Episodic Administrative/social admission (1 source) Informing health family day carer of test result; Translations: [Person consulting for [...] and due to atherosclerosis; Translations: [Atherosclerosis of [place] arteries of extremities with intermittent claudication, bilateral [...] nonspecific abnormal finding of lung field; Translations: [[facility] NONSPECIFIC ABN FIND LNG FIELD] Onset: [...] Range Facility HERPES SIMPLEX VIRUS (HSV) [facility] 07-22-2022 HSV Culture/Type Comment Abnormal [facility] Comment on above: Result Comment: 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 Typing was confirmed by monoclonal antibody microscopic immunofluorescence. Performed By: #### H SVCUL #### [facility] [address] [place] [address] Dr. Jessica Sainz [facility]on SARS-CoV-2 (COVID-19) RNA JANICE+probe Ql (Unsp spec) Not detected Normal NOT DETECTED [facility] Comment on above: Result Comment: This test is not yet approved or cleared by the [place] FDA. When there are no FDA-approved or cleared tests available, and other criteria are met, FDA can make tests available under an emergency access mechanism called an Emergency Use Authorization (EUA). The EUA for this test is supported by the Access Specialist of Health and Human Service's (HHS's) declaration [...] consistent with SARS-CoV-2. Performed By: #### C [facility] #### [facility] [address] [place] [address] Dr. Jessica Sainz XR CSPINE 2_3 VIEWSon [...] ELMER ANTOINE Date: 2022-05-16 11:55 Normal [facility] XR DEXA BONE DENSITYon 05-12 XR DEXA [...] by: GAMA MI Date: 2022-05-12 06:51 Normal [facility] MAMM SCREEN 3D ARNOLDO CADon 05-11-2022 MG MAMM SCREEN 3D ARNOLDO CAD Patient: CANDELARIA FOSTER Exam Date: 05/11/2022 : 1960 Gender:F Ordering : DR SHARMAINE CHAUDHARI . Admission #: [id number] Family : Order #: [id number] CLICK HERE TO VIEW EXAM RADIOLOGY REPORT [...] Treatments None Family Cancers None LOCATION: [facility] BREAST COMPOSITION: Scattered areas fibroglandular density. FINDINGS: [...] Antoine MD on 05/12/2022 at 08:59 Normal [facility] XR CHEST 2 Von 05-11-2022 XR CHEST [...] GIN DYSON Date: 2022-05-11 19:50 Normal [facility] XR HIP LT 2 3V W PELVISon [...] by: ZIGGY YADAV Date: 2022-05-11 18:01 Normal [facility] PAP ACOG PANEL 2: 30 to 65on 04-30-2022 . . Normal [facility] Comment on above: Result Comment: Perf ormed at: WB Performed By: #### [id number] #### [facility] [address] [address] [address] Jessica Sainz Age Gdln ACOG Testing 30-65 Normal [facility] Comment on above: Performed By: #### [id number] #### [facility] [address] [address] [address] Jessica Sainz DIAGNOSIS: Comment Normal [facility] Comment on above: Result Comment: NEGA TIVE FOR INTRAEPITHELIAL LESION OR MALIGNANCY. CELLULAR CHANGES ASSOCIATED WITH ATROPHY ARE PRESENT. Performed at: WB Performed By: #### [id number] #### [facility] [address] [address] [address] Jessica Sainz HPV Aptima Negative Normal Negative [facility] Comment on above: Result Comment: This nucleic acid amplification test detects fourteen high-risk HPV types (16,18,31,33,35,39,45,51,52,56,58,59,66,68) without differentiation. Performed at: =G Performed By: #### [id number] #### [facility] [address] [place] [address] Dr. Jessica Sainz HPV Genotype Reflex Comment Normal [facility] Comment on above: Result Comment: Crit eria not met, HPV Genotype not performed. Performed at: WB Performed By: #### [id number] #### [facility] [address] [place] [address] Dr. Jessica Sainz Methodology: Comment Normal [facility] Comment on above: Result Comment: This liquid based ThinPrep(R) pap test was screened with the use of an image guided system. Performed at: WB Performed By: #### [id number] #### [facility] [address] [place] [address] Dr. Jessica Sainz Note: Comment Normal [facility] Comment on above: Result Comment: The Pap smear is a screening test designed to aid in the detection of premalignant and malignant conditions of the uterine cervix. It is not a diagnostic procedure and should not be used as the sole means of detecting cervical cancer. Both false-positive and false-negative reports do occur. . Performed at: WB Performed By: #### [id number] #### [facility] [address] [place] [address] Dr. Jessica Sainz Performed by: Comment Normal [facility] Comment on above: Result Comment: Yi Osborn, Statistician (ASCP) Performed at: WB Performed By: #### [id number] #### [facility] [address] [place] [address] Dr. Jessica Sainz Specimen adequacy: Comment Normal [facility] Comment on above: Result Comment: Sati sfactory for evaluation. Endocervical component may not be distinguished in cases of atrophy. Performed at: WB Performed By: #### [id number] #### [facility] [address] [place] [address] CHEST WO CONon [...] by: GAMA MI Date: 2022-01-17 09:30 Normal [facility] XR CHEST COMP MIN 4Von 01-07 XR [...] by: ELMER ANTOINE Date: 2022-01-07 07:18 Normal [facility] CBC AUTO DIFFon 12-08-2021 BASO # 0.1 103/ul Normal 0.0-0.1 [facility] Comment on above: Performed By: #### C CBFS #### [facility] [address] [place] [address] Dr. Jessica Sainz Basophils/100 WBC (Bld) 1.7 % Normal 0.2-2.0 [facility] Comment on above: Performed By: #### C CBFS #### [facility] [address] [place] [address] Dr. Jessica Sainz EO # 0.5 103/ul Normal 0.0-0.7 [facility] Comment on above: Performed By: #### C CBFS #### [facility] [address] [place] [address] Dr. Jessica Sainz Eosinophils/100 WBC (Bld) 7.9 % Critically high 0.9-7.0 [facility] Comment on above: Performed By: #### C CBFS #### [facility] [address] [place] [address] Dr. Jessica Sainz Erythrocyte distribution width (RBC) [Ratio] 13.9 % Normal 11.0-15.0 [facility] Comment on above: Performed By: #### C CBFS #### [facility] [address] [place] [address] Dr. Jessica Sainz Hematocrit (Bld) [Volume fraction] 41.7 % Normal 36.0-48.0 [facility] Comment on above: Performed By: #### C CBFS #### [facility] [address] [place] [address] Dr. Jessica Sainz Hemoglobin (Bld) [Mass/Vol] 13.0 g/dL Normal 12.0-16.0 [facility] Comment on above: Performed By: #### C CBFS #### [facility] [address] [place] [address] Dr. Jessica Sainz IG # 0.01 10e3/ul Normal 0.00-0.03 [facility] Comment on above: Performed By: #### C CBFS #### [facility] [address] [place] [address] Dr. Jessica Sainz IG % 0.2 % Normal 0.0-0.5 [facility] Comment on above: Performed By: #### C CBFS #### [facility] [address] [address] [address] Jessica Sainz LYMPH # 1.5 103/ul Normal 1.2-3.8 [facility] Comment on above: Performed By: #### C CBFS #### [facility] [address] [place] [address] Dr. Jessica Sainz Lymphocytes/100 WBC (Bld) 25.4 % Normal 20.5-60.0 [facility] Comment on above: Performed By: #### C CBFS #### [facility] [address] [place] [address] Dr. Jessica Sainz MANUAL DIFF REQ NO Normal [facility] Comment on above: Performed By: #### C CBFS #### [facility] [address] [place] [address] Dr. Jessica Sainz MCH (RBC) [Entitic mass] 27.4 pg Normal 26.7-34.0 [facility] Comment on above: Performed By: #### C CBFS #### [facility] [address] [place] [address] Dr. Jessica Sainz MCHC (RBC) [Mass/Vol] 31.2 g/dL Normal 29.9-35.2 [facility] Comment on above: Performed By: #### C CBFS #### [facility] [address] [place] [address] Dr. Jessica Sainz MCV (RBC) [Entitic vol] 87.8 fL Normal 81.0-99.0 [facility] Comment on above: Performed By: #### C CBFS #### [facility] [address] [place] [address] Dr. Jessica Sainz MONO # 0.5 103/ul Normal 0.3-0.8 [facility] Comment on above: Performed By: #### C CBFS #### [facility] [address] [place] [address] Dr. Jessica Sainz Monocytes/100 WBC (Bld) 8.1 % Normal 1.7-12.0 [facility] Comment on above: Performed By: #### C CBFS #### [facility] [address] [address] [address] Jessica Sainz NEUT # 3.3 103/ul Normal 1.4-6.5 [facility] Comment on above: Performed By: #### C CBFS #### [facility] [address] [place] [address] Dr. Jessica Sainz Neutrophils/100 WBC (Bld) 56.7 % Normal 43.0-75.0 [facility] Comment on above: Performed By: #### C CBFS #### [facility] [address] [place] [address] Dr. Jessica Sainz Platelet mean volume (Bld) [Entitic vol] 9.7 fL Normal 9.5-13.5 [facility] Comment on above: Performed By: #### C CBFS #### [facility] [address] [place] [address] Dr. Jessica Sainz PLT 266 103/ul Normal 150-450 [facility] Comment on above: Performed By: #### C CBFS #### [facility] [address] [place] [address] Dr. Jessica Sainz RBC 4.75 106/ul Normal 4.20-5.40 [facility] Comment on above: Performed By: #### C CBFS #### [facility] [address] [place] [address] Dr. Jessica Sainz WBC 5.8 103/ul Normal 4.0-11.0 [facility] Comment on above: Performed By: #### C CBFS #### [facility] [address] [place] [address] Dr. Jessica Sainz LIPID PROFILEon 12-08-2021 CHOL-HDL RATIO NORM SEE BELOW Normal [facility] Comment on above: Result Comment: 3.3 - 4.4 LOW RISK 4.4 - 7.1 AVERAGE RISK 7.1 - 11.0 MODERATE RISK >11.0 HIGH RISK Performed By: #### H SVCUL #### [facility] [address] [place] [address] Dr. Jessica Sainz Cholesterol [Mass/Vol] 208 mg/dL Critically high <=200 [facility] Comment on above: Performed By: #### H SVCUL #### [facility] [address] [address] [address] Jessica Sainz Cholesterol in HDL [Mass/Vol] 63 mg/dL Critically high 40-60 [facility] Comment on above: Performed By: #### H SVCUL #### [facility] [address] [address] [address] Jessica Sainz Cholesterol in LDL [Mass/Vol] 122.8 mg/dL Normal [facility] Comment on above: Performed By: #### H SVCUL #### [facility] [address] [address] [address] Jessica Sainz Cholesterol.total /Cholesterol in HDL [Mass ratio] 3.3 {ratio} Normal [facility] Comment on above: Performed By: #### H SVCUL #### [facility] [address] [address] [address] Jessica Sainz HDL NORMAL > or = 60 mg/dl - LO W CARDIOVASCULAR RISK <40 mg/dl - HIGH CARDIOVASCULAR RISK Normal [facility] Comment on above: Performed By: #### H SVCUL #### [facility] [address] [address] [address] Jessica Sainz LDL CALC NORMAL SEE BELOW Normal [facility] Comment on above: Result Comment: <100 mg/dl OPTIMAL 100 - 129 mg/dl NEAR OR ABOVE OPTIMAL 130 - 159 mg/dl BORDERLINE HIGH 160 - 189 mg/dl HIGH >190 mg/dl VERY HIGH Performed By: #### H SVCUL #### [facility] [address] [address] [address] Jessica Sainz Triglyceride [Mass/Vol] 111 mg/dL Normal <=150 [facility] Comment on above: Performed By: #### H SVCUL #### [facility] [address] [address] [address] Jessica Sainz VLDL CALC 22.2 mg/dL Normal [facility] Comment on above: Performed By: #### H SVCUL #### [facility] [address] [address] [address] Jessica Sainz PROF 14(COMP METB)on 022 Albumin [Mass/Vol] 4.0 g/dL Normal 3.4-5.0 [facility] Comment on above: Performed By: #### H SVCUL #### [facility] [address] [place] [address] Dr. Jessica Sainz Albumin/Globulin [Mass ratio] 1.0 {ratio} Normal [facility] Comment on above: Performed By: #### H SVCUL #### [facility] [address] [address] [address] Jessica Sainz ALP [Catalytic activity/Vol] 111 U/L Normal 46-116 [facility] Comment on above: Performed By: #### H SVCUL #### [facility] [address] [place] [address] Dr. Jessica Sainz ALT [Catalytic activity/Vol] 21 U/L Normal 14-59 [facility] Comment on above: Performed By: #### H SVCUL #### [facility] [address] [address] [address] Jessica Sainz Anion gap [Moles/Vol] 11.5 mmol/L Normal [facility] Comment on above: Performed By: #### H SVCUL #### [facility] [address] [place] [address] Dr. Jessica Sainz AST [Catalytic activity/Vol] 16 U/L Normal 15-37 [facility] Comment on above: Performed By: #### H SVCUL #### [facility] [address] [place] [address] Dr. Jessica Sainz Bilirubin [Mass/Vol] 0.4 mg/dL Normal 0.2-1.0 [facility] Comment on above: Performed By: #### H SVCUL #### [facility] [address] [place] [address] Dr. Jessica Sainz Calcium [Mass/Vol] 9.2 mg/dL Normal 8.5-10.1 [facility] Comment on above: Performed By: #### H SVCUL #### [facility] [address] [place] [address] Dr. Jessica Sainz Chloride [Moles/Vol] 102 mmol/L Normal 98-107 [facility] Comment on above: Performed By: #### H SVCUL #### [facility] [address] [address] [address] Jessica Sainz CO2 [Moles/Vol] 29.8 mmol/L Normal 21.0-32.0 [facility] Comment on above: Performed By: #### H SVCUL #### [facility] [address] [address] [address] Jessica Sainz Creatinine [Mass/Vol] 0.62 mg/dL Normal 0.55-1.02 [facility] Comment on above: Performed By: #### H SVCUL #### [facility] [address] [place] [address] Dr. Jessica Sainz EGFR-AF NICARAGUAN >60 Normal >=60 [facility] Comment on above: Performed By: #### H SVCUL #### [facility] [address] [address] [address] Jessica Sainz EGFR-NON AF NICARAGUAN >60 Normal >=60 [facility] Comment on above: Performed By: #### H SVCUL #### [facility] [address] [place] [address] Dr. Jessica Sainz Globulin (S) [Mass/Vol] 4.2 g/dL Normal [facility] Comment on above: Performed By: #### H SVCUL #### [facility] [address] [place] [address] Dr. Jessica Sainz Glucose [Mass/Vol] 92 mg/dL Normal 74-106 [facility] Comment on above: Performed By: #### H SVCUL #### [facility] [address] [address] [address] Jessica Sainz Potassium [Moles/Vol] 4.3 mmol/L Normal 3.5-5.1 [facility] Comment on above: Performed By: #### H SVCUL #### [facility] [address] [place] [address] Dr. Jessica Sainz Protein [Mass/Vol] 8.2 g/dL Normal 6.4-8.2 [facility] Comment on above: Performed By: #### H SVCUL #### [facility] [address] [place] [address] Dr. Jessica Sainz Sodium [Moles/Vol] 139 mmol/L Normal 136-145 [facility] Comment on above: Performed By: #### H SVCUL #### [facility] [address] [place] [address] Dr. Jessica Sainz Urea nitrogen [Mass/Vol] 16.0 mg/dL Normal 7.0-18.0 [facility] Comment on above: Performed By: #### H SVCUL #### [facility] [address] [place] [address] Dr. Jessica Sainz Urea nitrogen/Creatini ne [Mass ratio] 25.8 mg/mg Normal [facility] Comment on above: Performed By: #### H SVCUL #### [facility] [address] [place] [address] Dr. Jessica Sainz TSHon 12-08-2021 TSH 1.419 uIU/mL Normal 0.358-3.740 [facility] Comment on above: Performed By: #### H SVCUL #### [facility] [address] [place] [address] Dr. Jessica Sainz VITAMIN D 25 OHon 12-08-2021 VIT D 25-OH 39.3 ng/mL Normal [facility] Comment on above: Performed By: #### V ITAD #### [facility] [address] [place] [address] Dr. Jessica Sainz VIT D RANGES SEE BELOW Normal [facility] Comment on above: Result Comment: <20 ng/mL Vit D deficient 20 - <30 ng/mL Vit D insufficient 30 - 100 ng/mL Vit D sufficient >100 ng/mL Potential Toxicity Performed By: #### V ITAD #### [facility] [address] [place] [address] Dr. Jessica Sainz ACID FAST SMEAR AND CXon Acid Fast Culture Negative Normal [facility] Comment on above: Result Comment: No a nolan fast bacilli isolated after 6 weeks. Performed By: #### H SVCUL #### [facility] [address] [address] [address] Jessica Sainz Acid Fast Smear Negative Normal [facility] Comment on above: Performed By: #### H SVCUL #### [facility] [address] [place] [address] Dr. Jessica Sainz AFB Specimen Processing Direct Inoculation Normal [facility] Comment on above: Performed By: #### H SVCUL #### [facility] [address] [place] [address] Dr. Jessica Sainz FUNGAL CULTUREon 11-10-2021 Fungus (Mycology) Culture Final report [facility] Comment on above: Performed By: #### C CBFS #### [facility] [address] [place] [address] Dr. Jessica Sainz Fungus Stain Final report Normal [facility] Comment on above: Performed By: #### C CBFS #### [facility] [address] [place] [address] Dr. Jessica Sainz Result 1 Comment Normal [facility] Comment on above: Result Comment: JOJO/ Calcofluor preparation: no fungus observed. Performed By: #### C CBFS #### [facility] [address] [place] [address] Dr. Jessica Sainz Result Comment: No y east or mold isolated after 4 weeks. BODY FLUID CULTUREon 022 Anaerobic Culture, Extended Incubation Final report Normal [facility] Comment on above: Performed By: #### H SVCUL #### [facility] [address] [place] [address] Dr. Jessica Sainz Body Fluid Culture, Sterile Final report Normal [facility] Comment on above: Performed By: #### H SVCUL #### [facility] [address] [place] [address] Dr. Jessica Sainz Result 1 Comment Normal [facility] Comment on above: Result Comment: No g rowth in 56 - 72 hours. Performed By: #### H SVCUL #### [facility] [address] [place] [address] Dr. Jessica Sainz Result Comment: No a naerobes recovered. No anaerobic growth after 14 days LAB DAVID MIS TESTon 022 Referral Lab Comment Normal [facility] Comment on above: Result Comment: [facility] Performed By: #### L CMISC #### [facility] [address] [place] [address] Dr. Jessica Sainz Referral Test Code or Mnemonic Comment Normal [facility] Comment on above: Result Comment: 2002 Performed By: #### L CMISC #### [facility] [address] [place] [address] Dr. Jessica Sainz Referral Test Name Comment Normal [facility] Comment on above: Result Comment: RHEU MATOID FACTOR Performed By: #### L CMISC #### [facility] [address] [place] [address] Dr. Jessica Sainz Referral Test Results Comment Normal [facility] Comment on above: Result Comment: Refe rence lab report sent via fax. Performed By: #### L CMISC #### [facility] [address] [place] [address] Dr. Jessica Sainz PH, BODY FLUIDon 10-15-2021 pH, Body Fluid 7.6 Normal Not Estab. [facility] Comment on above: Result Comment: The reference interval(s) and other method performance specifications have not been established for this body fluid. The test result must be integrated into the clinical context for interpretation. Performed By: #### B DYFLPH #### [facility] [address] [place] [address] Dr. Jessica Sainz AMYLASE, BODY FLUIDon 2021 Amylase [Catalytic activity/Vol] 40 U/L Normal [facility] Comment on above: Result Comment: ____ : BODY FLUID TYPE : AMYLASE : : : : : Lymph : 50 - 83 : : : : : Peritoneal : : : Fluid : 88 - 109 : : : : : Saliva : : : (Mixed Glands) : [id number] - [id number] : : : : . [place] W, Cher V. Reference Intervals for Adults and Children 2008. Ninth Edition (V9.1) [employer], [facility]; [place]: December 2008. The method performance specifications have not been established for this test in body fluid. The test result should be integrated into the clinical context for interpretation. Performed By: #### H SVCUL #### [facility] [address] [place] [address] Dr. Jessica Sainz CELL COUNT BODY FLUIDon 09-25 Clarity, Serous Clear Normal Clear [facility] Comment on above: Performed By: #### C CBFS #### [facility] [address] [place] [address] Dr. Jessica Sainz Color, Serous Straw Normal [facility] Comment on above: Result Comment: [place] rless to Pale Yellow/Straw Performed By: #### C CBFS #### [facility] [address] [place] [address] Dr. Jessica Sainz Comments: Normal [facility] Comment on above: Performed By: #### C CBFS #### [facility] [address] [place] [address] Dr. Jessica Sainz Eosinophils/100 WBC (Bld) 8 % Normal Not Estab. [facility] Comment on above: Performed By: #### C CBFS #### [facility] [address] [place] [address] Dr. Jessica Sainz Lining Cells, Serous Normal [facility] Comment on above: Performed By: #### C CBFS #### [facility] [address] [address] [address] Jessica Sainz Lymphocytes/100 WBC (Bld) 27 % Normal Not Estab. [facility] Comment on above: Performed By: #### C CBFS #### [facility] [address] [address] [address] Jessica Sainz Macrophages, Serous 39 % Normal Not Estab. [facility] Comment on above: Performed By: #### C CBFS #### [facility] [address] [address] [address] Jessica Sainz Nucleated Cells, Serous 1586 /mm3 Critically high 0-499 [facility] Comment on above: Result Comment: Pleu ral Fluid, with <1000 Nucleated cells/uL has been associated with transudates while >1000 uL may be seen in exudates. Performed By: #### C CBFS #### [facility] [address] [address] [address] Jessica Sainz Polys, Serous 26 % Critically high 0-24 [facility] Comment on above: Performed By: #### C CBFS #### [facility] [address] [place] [address] Dr. Jsesica Sainz RBC, Serous Rare Normal Not Estab. [facility] Comment on above: Performed By: #### C CBFS #### [facility] [address] [place] [address] Dr. Jessica Sainz GLUCOSE BODYFLUIDon 10-14-19 22 Glucose, Body Fluid 91 mg/dL Normal [facility] Comment on above: Result Comment: ____ : [...] 2008. Ninth edition (V9.1) [employer], [facility]; [place]: December 2008. The reference intervals and other method performance specifications have not been established for this test. The test result should be integrated into the clinical context for interpretation. Performed By: #### B FGLUC #### [facility] [address] [place] [address] Dr. Jessica Sainz LACTIC ACID DEHYDROGENASE (L D), BODY FLUon 10-13-2021 LD, Body Fluid 220 IU/L Normal [facility] Comment on above: Result Comment: ____ : [...] 2007. Ninth Edition (V9.1) [employer], [facility]; [place]: December 2008. The reference intervals and other method performance specifications have not been established for this test. The test result should be integrated into the clinical context for interpretation. Performed By: #### C CBFS #### [facility] [address] [place] [address] Dr. Jessica Sainz PROTEIN, TOTAL, BODY FLUIDon 10-13-2021 Protein, Body Fluid 4.4 g/dL Normal [facility] Comment on above: Result Comment: ____ : [...] Children 2007. Ninth Edition (V9.1) [facility]; [place]: December 2008. The method performance specifications have not been established for this test in body fluid. The test result should be integrated into the clinical context for interpretation. Performed By: #### T PBF #### [facility] [address] [place], [place] [address] Dr. Jessica Sainz CYTOLOGYon 2021 SENT TO REF LAB 2021 Normal [facility] Comment on above: Performed By: #### C YTO #### [facility] [address] [place], [place] [address] Dr. Jessica Sainz XR CHEST 1 Von [...] GAMA [place] Date: 2021 10:58 Normal [facility] CT CHEST WO CONon 09-30-2021 CT CHEST [...] by: GAMA [place] Date: 2021-09-30 16:57 [facility] C[facility]N Telephone (GYNML) ---CANDELARIA FOSTER ([id number]) 1960 FDate Time Provider Department11/18/17 KARINA WILLIS (RN) [facility] During your visit today, we recorded [...] medical team for review and adviseMary TREMAYNE Cheung.CLAIMS REPRESENTATIVE 11/18/2017 1:04 PM SignedPatients commonly experience an [...] Status:Closed by JENNA CHEUNG CNP on 11/18/17 [facility] ANES Darek 11-03-2017 ANES POST HNO ID: [id number] thor: Delisa Henderson AService: AnesthesiologyAuthor Type: AnesthesiologistType: [...] 03, 2017 : 9:31 AM PAGER/CONTACT #: [facility] ANES PREOPon 11-03-2017 ANES PREOP HNO ID: [id number] thor: Delisa Henderson AService: AnesthesiologyAuthor Type: AnesthesiologistType: Anesthesia PreOpFiled: 11/03/2017 8:03 AMNote Text:REGIONAL ANESTHESIOLOGY DAY OF SURGERY NOTEPATIENT NAME: Candelaria FosterMRN: [id number]: 1960Procedure(s) (LRB):VULVECTOMY PARTIAL SIMPLE (Left)Surgeon(s):Tamia StreetdiEstimated body [...] 10/19/2017Creatinine 0.74 10/19/2017EKG:normal EKG, normal sinus rhythmVitals: [id number]: 147/79Pulse: 69Resp: 16Temp: 36.7 ?C (98.1 ?F)TempSrc: [...] arteries- HYSTERECTOMY HX- PAST SURGICAL HISTORY OF [place] Teeth Extraction- PAST SURGICAL HISTORY OF [facility] on scalpFAMILY HISTORYProblem Relation Age of Onset- Heart Father d. @ 42 of [place]- Heart Paternal Grandfather d. @ 45 of [place]- Heart Brother Cardiac Stent Placement- Heart Sister- [...] findings confirmed. Patient examined. Discussed with the DICTAPHONE TRANSCRIBER andthe patient. Plan as outlined.ab Donny Lee 20178:03 AM [facility] BRIEF OP NOTon 11-03-2017 BRIEF OP NOT HNO ID: [id number] thor: Jorge Brennan: Gynecology OncologyAuthor Type: PhysicianType: Brief Op NoteFiled: 11/03/2017 8:24 AMNote Text:BRIEF OP NOTELOG ID: [id number]/Procedure Date: 11/03/2017Incision/Procedure Start Time: 8:04 AMIncision Close/Procedure End Time: 8:18 AMSurgeon(s)/Proceduralist(s ) and Cellulose Insulation Helper(s):Surgeon(s) and Role: * Tamia Torres - Primary [...] 03, 2017 : 8:22 AM PAGER/CONTACT #: [facility] HISTORY PHYSICALon 8 HISTORY PHYSICAL HNO ID: [id number] thor: Clair Diaz (Res)Service: Gynecology OncologyAuthor Type: [...] November 03, 2017 : 7:30 AM PAGER: [phone] [facility] NURSING PROGon 11-03-2017 NURSING PROG HNO ID: [id number] thor: Elma Frazier (Rn), RNService: NursingAuthor Type: Registered NurseType: Nursing Progress NoteFiled: 11/03/2017 8:42 AMNote Text: Nursing Progress NotePatient Name: Candelaria FosterMRN: [id number] Location: [facility] OR POOL/[facility] OR POOL 0828 Pt arrived from OR and attached to PACU monitor. Assessmentcompleted see assessment section. No signs of bleeding noted.This note was completed by: Elma Frazier RN [facility] OPERATIVE NOon 11-03-2017 OPERATIVE NO HNO ID: [id number] thor: Thang Torres: Gynecology OncologyAuthor Type: PhysicianType: Operative ReportFiled: 11/04/2017 1:12 PMNote Text:OPERATIVE/PROCEDURE REPORTLOG ID: [id number]/PROCEDURE DATE: 11/03/2017INCISION/PROCEDURE START TIME: 8:04 AMINCISION CLOSE/PROCEDURE END TIME: 8:18 AMSURGEON(S)/PROCEDURALIST(S ) AND ENVELOPE ADJUSTER(S):Surgeon(s) and Role: * Tamia Torres - Primary [...] 04, 2017 : 1:09 PM PAGER/CONTACT #: [facility] PLAN OF CAREon 11-03-2017 PLAN OF CARE HNO ID: [id number] thor: Rupesh ([address])Dorinda: (none)Author Type: TechnicianType: Plan of CareFiled: 11/04/2017 9:27 AMNote Text:PHARMACY BEDSIDE DELIVERY SERVICEPatient Name: Candelaria FosterMRN: [id number] marked outpatient medications were filled and deliveredMedication [...] them or your Primary Care Provider.Iveth Goddard ([address])PAGER: [phone] 2017 9:27 AM [facility] PLAN OF CARE HNO ID: [id number] thor: Rupesh [address])Dorinda: (none)Author Type: TechnicianType: Plan of CareFiled: 11/03/2017 10:31 AMNote Text:Pharmacy Discharge Medication Service:This patient has elected to [facility] their discharge prescriptions [facility]ought[facility]. Theprescriptions are currently being processed. A follow-up note will beentered once the prescriptions have been filled and delivered to thepatient. Please contact me with any questions or updates to the patient'sdischarge medications.Iveth Goddard ([address])DCT Contact Info: [id number] [facility] PLAN OF CARE HNO ID: [id number] thor: Rupesh ([address]), BrendenlyService: (none)Author Type: TechnicianType: Plan of CareFiled: 11/03/2017 10:31 AMNote Text:ORTHOTIC/PROSTHETIC PRACTITIONER BEDSIDE DELIVERY SURVEY1. Patient to use [facility] Bedside Delivery - YES2. If fax, patient would like us to fax prescriptions to [facility] a. Pharmacy: b. Location: c. Phone:3. Insurance card on file - YES4. Credit card for payment - N/A [facility] PT EDon 11-03-2017 PT ED HNO ID: [id number] thor: Kamla Zambrano (Rn), RNService: NursingAuthor Type: Registered NurseType: Patient EducationFiled: 11/03/2017 6:43 AMNote Text:PRE OP LEARNING ASSESSMENTPROCEDURE/SURGERY: SURGERY:READINESS TO LEARNCOGNITIVE ABILITY: Alert and orientedMOTIVATION TO LEARN: EagerFAMILY SUPPORT: Unable to assess - Family not presentPATIENT LEARNS BEST BY: Individual InstructionFACTORS AFFECTING LEARNING: NonePHYSICAL LIMITATIONS AFFECTING LEARNING: NoneElectronically Signed By: Kamla Zambrano RN In Department: [facility] OPERATING ROOM [facility] SURGICAL PATHOLOGYon 018 SURGICAL PATHOLOGY [facility] #: [id number] Physician: TAMIA TORRES MD FINAL DIAGNOSIS1. Right [...] 6 o'clock.TATE/shayan 11/03/2017 Gross examination performed at [facility], [address] [address] of Report: 11/08/2017Date of Procedure: 11/03/2017Date of Receipt: 11/03/2017Submitted by: TAMIA TORRES MDLocation: FVORDiagnostic interpretation performed at [address] [place] [address]. [facility] Comment on above: Performed By: #### P ATHS ####[id number] [place] [address] NURSING PROGon 10-26-2017 NURSING PROG HNO ID: [id number] thor: Bambi (Rn) ALLYSON Lyonervice: General SurgeryAuthor Type: Registered NurseType: Nursing Progress NoteFiled: 10/26/2017 4:26 PMNote Text:PACC Nurse Progress NoteHistory AND Physical:PACC Visit Date: 1-95-65Psyikhld HANDP Date: N/AED visit Date: N/AOutside HANDP Scanned Date: N/ALabs Within Last 6 Months:CBC: Date 10-19-17BMP/CMP: Date 1-60-36Fywstgd Within Last 12 Months:N/ACardiac Testing:EKG in last 12 Months: Yes: Date: 10-19-17, Comment: Confirmed in EPIC.Last Menstrual Period:LMP Date: UnknownPostmenopausal >1yr: Yes,S/P Hysterectomy: YesBMI Percentile (PEDS):N/ARisk Assessment:N/AAnesthesia Review:N/ANarrative:N/APre-o p Considerations:N/AChart Check:Juventino Lyon RNMay 2017 4:25 PM [facility] HOSPon 10-05-2017 HOSP Patient:Sumi Foster LMRN: Height:5' [...] 3.7HEMA* 43.3 % 10/19/2017 46.0 36.0Progress Notes (PLANTING MACHINE CREWMAN [facility]):Aleena Cuenac (Rn), RN 10/31/2017 3:20 PM SignedPt is scheduled for vulvectomy with Dr. Torres on 11/03/17Pt calls today stating she had flare up of hemorrhoids this weekend and askingif okay to use preparation H. Instructed her that it would most likely be okayas long as it is not used on day of procedure and area is clean and dry.Advised I would discuss with CLAIMS REPRESENTATIVE and call her backShe also states that [...] RN 11/01/2017 4:33 PM SignedInformed pt of CLAIMS REPRESENTATIVE's message to go ahead and use prep [...] use cortizone creamthere.Will update medical teamGalina Dowell (Collections Representative) 11/02/2017 3:08 PM SignedWould not advise any creams in anticipation of procedure for tomorrowThNano Bentley (Rn), RN 11/02/2017 3:49 PM SignedLeft vm for patient in regards to message below.Progress Notes (PLANTING MACHINE CREWMAN [facility]):Aleena Cuenca (Rn), RN 10/26/2017 1:57 PM SignedLeft vm for pt to call office to discuss pre-op instructions prior to surgerywith Dr. Torres on 11/03/17WiNimco Cornejo RN 10/27/2017 4:00 PM SignedPatient returning call for pre op instructions.Procedure: VULVECTOMY PARTIAL SIMPLEPhysician: Tamia TorresLocation: [facility]: [phone] AND Time: 11/03/2017MEDICAL CLEARANCE: No CARDIAC CLEARANCE: NoPRE ADMISSION TESTIN10/19/17 AT: [facility]): [phone] FOLLOWING WAS EVALUATED Motivation To Learn: Interested [...] Celebrex MotrinAggrenox Clinoril Naprosyn(naproxen)Agrylin NSAIDS Pepto-BismolAleve Ecotrin PersantineAlka-Ferron Excedrin PlaquenilAnacin Heparin PlavixAscriptin Herbals PletalAspergum Ibuprofen [...] - IV pain medication after surgery, IV STENOGRAPHIC COURT REPORTER if ordered by MD,discharged home with a prescription for PO pain medication, pain managementafter surgery, side effects of pain medication (including constipation,dizziness, drowsiness, and medication interactions).DVT PROPHYLAXIS - Early ambulation, SCDs, injectable anticoagulants (heparin,lovenox, etc)RESPIRATORY - Incentive spirometer, coughing/deep breathing exercises,ambulation.RETURN TO WORK - As directed by physician, please 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Patient Evaluation: Verbalizes understandingPatient and/or family express understanding of upcoming surgery and theoperative process. Questions answered.Follow Up Plan: Follow up as neededSupplemental Material Given:Pre-operative teaching packet provided to the patient:INPATIENT/OUTPATIENT printed instructions; Post-operative instruction sheet,bowel prep instruction sheetFor questions contact: Tamia Torres's office at [phone] By Nimco Garza RN [facility] Vital Signs Date Time Vital Sign Value Performing Clinician Facility 12-16-2023 11:27-0400 Body height 157.48 cm [facility] 12-16-2023 11:27-0400 Body mass index (BMI) [Ratio] 27.3 kg/m2 [facility] 12-16-2023 11:27-0400 Body weight 67.75 kg [facility] 12-16-2023 11:27-0400 Diastolic blood pressure 81 mm[Hg] [facility] 12-16-2023 11:27-0400 Heart rate 75 /min [facility] 12-16-2023 11:27-0400 Respiratory rate 12 /min [facility] 12-16-2023 11:27-0400 Systolic blood pressure 143 mm[Hg] [facility] 12-14-2022 11:00-0400 Body height 156.21 cm Clint Ball Other [facility] [employer] Other 12-14-2022 11:00-0400 Body mass index (BMI) [Ratio] 28.25 kg/m2 Clint [facility] Other [facility] Other 12-14-2022 11:00-0400 Body weight 68.95 kg Clint Ball Other [facility] Other 12-14-2022 11:00-0400 Diastolic blood pressure 73 mm[Hg] Clint Veras Other [facility] Other 12-14-2022 11:00-0400 Respiratory rate 12 /min Clint Veras Other [facility] Other 12-14-2022 11:00-0400 Systolic blood pressure 112 mm[Hg] Clint Veras Other [facility] Other Encounters Encounter Date Encounter Type Care Provider Facility Start: 03-06-2024 End: 03-06-2024 ambulatory CHAY ALEJANDRE Not Available Start: 01-04-2024 End: 01-04-2024 ambulatory CHAY ALEJANDRE Not Available Start: 12-16-2023 End: 12-16-2023 ambulatory [facility] Work Phone: Start: 12-16-2023 End: 12-16-2023 Encounter for general adult medical examination without abnormal findings [facility] Start: 12-16-2023 End: 12-16-2023 Patient encounter procedure [facility] Work Phone: Start: 12-07-2023 End: 12-07-2023 ambulatory CHAY ALEJANDRE Not Available Start: 11-07-2023 End: 11-07-2023 ambulatory MIKAL LEMUS Not Available Start: 05-16-2023 End: 05-16-2023 ambulatory NIMCO TRIMBLE Not Available Start: 01-21-2023 End: 01-21-2023 ambulatory Clint Veras Other [facility] [employer] Other Start: 01-21-2023 Telephone encounter [facility] Start: 12-15-2022 End: 12-15-2022 ambulatory Clint Veras Other [facility] Other Start: 12-15-2022 Telephone encounter [facility] Start: 12-14-2022 End: 12-14-2022 ambulatory Clint Veras Other [facility] Other Start: 12-14-2022 Encounter for genera l adult medical examination without abnormal findings Clint Veras [facility] Start: 12-14-2022 Periodic preventive med est patient 40-64yrs Clint Veras [facility] Start: 07-16-2022 End: 07-16-[address] SHARMAINE CHAUDHARI . [facility] Other Start: 07-16-2022 Telephone encounter Clint Mantilla [employer] Start: 06-27-2022 End: 07-13-[address] CLINT VERAS Facility:[facility] Start: 06-23-2022 End: 06-23-2022 ambulatory Leon Kohli Facility:[facility] Start: 06-22-2022 End: 06-22-2022 ambulatory Leon Kohli Other [facility] Other Start: 06-22-2022 Telephone encounter Leon Mantilla [facility] Start: 06-16-2022 End: 06-26-[address] CLINT VERAS Facility:[facility] Start: 06-08-2022 End: 06-08-2022 ambulatory David Lemus Other [facility] Other Start: 06-08-2022 Office outpatient ne w 45 minutes David Lemus [facility] [place] Start: 05-27-2022 Gynecological examination normal Clint Veras Other [facility] Other Start: 05-27-2022 End: 05-27-[address] CLINT VERAS Facility:[facility] Start: 05-14-2022 End: 05-15-[address] CLINT VERAS Facility:[facility] Start: 05-11-2022 End: 05-12-[address] CLINT VERAS Facility:[facility] Start: 04-23-2022 End: 04-23-[address] SHAMRAINE CHAUDHARI . Facility:[facility] Start: 02-22-2022 End: 02-22-2022 ambulatory Leon Kohli Other [facility] Other Start: 02-22-2022 Telephone encounter Leon MAYORGA G [employer] Start: 01-16-2022 End: 01-17-[address] GAMA [place] Facility:[facility] Start: 01-06-2022 End: 01-07-[address] ELMER ANTOINE Facility:[facility] Start: 12-10-2021 Encounter for genera l adult medical examination without abnormal findings DR CLINT VERAS [facility] Start: 12-08-2021 End: 12-09-[address] CLINT VERAS Facility:[facility] Start: 12-08-2021 End: 12-09-2021 Encounter for general adult medical examination without abnormal findings DR CLINT VERAS Facility:[facility] Start: 12-08-2021 Adult health examination Clint Veras Other [facility] Other Start: 2021 End: [address] GAMA [place] Facility:[facility] Start: 09-30-2021 End: 10-01-[address] CLINT VERAS Facility:[facility] Start: 11-03-2017 End: 11-03-2017 Ambulatory [facility] Procedures Date Procedure Procedure Detail Performing [...] lic 2000 panel - Serum or Plasma [facility] enter [facility] Immunizations Immunization Date Immunization Notes Care Provider Bandar sharma 09-03-2020 COVID-19 Vaccine Mejia ssen - Documentation Purposes Only Clint Marissa Other [facility] Payers Date Payer Category Payer Unknown [id number] 2022 Unknown [id number] 1960 Unknown [id number] 2.16.840.1.287786.3.579.2.593 1959 Unknown [id number] 2.16.840.1.957818.3.579.2.593 1959 Unknown [id number] 2.16.840.1.324643.3.579.2.593 1959 Unknown [id number] 2.16.840.1.854271.3.579.2.593 1959 Unknown [id number] 2.16.840.1.621897.3.579.2.593 1959 Unknown [id number] 2.16.840.1.971794.3.579.2.593 1959 Unknown [id number] 2.16.840.1.013032.3.579.2.593 1959 Unknown [id number] 2.16.840.1.950195.3.579.2.593 1959 Unknown [id number] 2.16.840.1.318197.3.579.2.593 1959 Unknown [id number] 2.16.840.1.658112.3.579.2.593 1959 Unknown [id number] 2.16.840.1.390947.3.579.2.593 1959 Unknown [id number] 2.16.840.1.528910.3.579.2.593 1959 Unknown [id number] 2.16.840.1.921891.3.579.2.593 1959 Unknown [id number] 2.16.840.1.769332.3.579.2.1259 1959 Unknown [id number] 2.16.840.1.314133.3.579.2.1259 1959 Unknown [id number] 2.16.840.1.273617.3.579.2.9 1959 Unknown [id number] 2.16.840.1.770919.3.579.2.1259 1959 Unknown [id number] 2.16.840.1.602209.3.579.2.1259 1959 Unknown [id number] 2.16. 840.1.919529.19 1959 Unknown [id number] Private Health Insurance [facility] [id number] Self-pay Self Pay [id number] Social History Date Type Detail Facility Sex Assigned At [facility] [employer] Other Start: 06-23-2022 [facility] Start: 1960 Sex Assigned At Female F [facility] Evaluation note 01-21-2023 Note Date & Type Note Facility 01-21-2023 Evaluation note Encounter Date Diagnosis Assessment Notes Dec, Cigarette nicotine dependence without complication (ICD-10 - F17.210) LDCT lungs w/o suspicious nodules - 12/2022Dec, Mucopurulent chronic bronchitis (ICD-10 - J41.1) [facility] [employer] Other Evaluation note 12-14-2022 Note Date & [...] use, the patient reduces the risk for ME, CVA, HTN, cardiac dysrhythmias and sudden cardiac [...] repeat scope in 5years Nov, Atherosclerosis of [place] artery of both lower extremities with intermittent claudication (ICD-10 - I70.213) Inspect feet daily, walk daily. Continue ASA and Statin therapy [facility] Other History general Narrative - Reported 07-18-2022 Note Date & Type Note Facility 07-18-2022 History general N arrative - Reported Type Medical History hypertension Medical History hyperlipidemia Medical History fibromyalgia Surgical History hysterectomy Surgical History colonoscopy 07/18/22 [facility] Other History general Narrative - Reported 07-18-2022 Note Date & Type Note Facility 07-18-2022 History general N arrative - Reported Type Medical History hypertension Medical History hyperlipidemia Medical History fibromyalgia Surgical History hysterectomy Surgical History colonoscopy 07/18/22 Hospitalization History see surgical history [facility] Other Evaluation note 06-08-2022 Note Date & [...] Above note written by Rashaad Alejandre MA, Gut Cleaner. Edited and approved by Dr. David Lemus [...] negative findings were considered in medical decision-making. [facility] Other Evaluation note 02-22-2022 Note Date & Type Note Facility 02-22-2022 Evaluation note Encounter Date Diagnosis Assessment Notes Jan, Screening for colon cancer (ICD-10 - Z12.11) [facility] Other Evaluation note Note Date & Type Note Facility Evaluation note No Information [facility] Other Evaluation note Note Date & Type Note Facility Evaluation note Diagnosis Onset Date Chronic bronchitis acute ELADIO (generalized anxiety disorder) acute Hypertension acute Nicotine addiction acute TARA (obstructive sleep apnea) acute Peripheral artery disease ac birdie Wellness examination noneact jason [facility] Work Phone: History general Narrative - Reported Note Date & Type Note Facility History general Narrative - Reported Type Medical History hypertension Medical History hyperlipidemia Medical History fibromyalgia Surgical History hysterectomy [facility] Other Summary Purpose Family History No Family [...] section and content) DATE CREATED AUTHOR 12/14/2017 [facility] DATE CREATED AUTHOR AUTHOR'S ORGANIZ ATION 06/23/2022 [facility] DATE CREATED AUTHOR AUTHOR'S ORGANIZ ATION 09/21/2022 [facility] DATE CREATED AUTHOR AUTHOR'S ORGANIZ ATION 03/07/2024 [facility] EPIC REASON FOR VISIT (unrecogniz ed section and content) MAIL PPWREF BY DR VERAS FOR Debbie UMBAR SPONDYLOSIS AND NUMBNESSClinical Acute IllnessCOLONOSCOPY REPORTBATH COMMUNITY HOSPITALLab ResultsNo Information Care Teams (unrecognized sec [...] BE BASED ON THE PRIMARY CLINICAL RECORDS. [employer] [facility]. provides no warranty or guarantee of the accuracy or completeness of information in this document.
== END 2024-05-21 21:01 | disposition home or self-care (01) ==
LOC: LAB 21:00
PROVIDERS: PCP Internal Medicine; Visit Provider Physician Assistant
DX: Z01.419 Encounter for gynecological examination (general) (routine) without abnormal findings (principal); Z90.710 Acquired absence of both cervix and uterus
CPT/HCPCS: 87624; 88175

== ENCOUNTER 2024-05-26 14:05 | Emergency (ER) | payer OTHER, SELFPAY ==
[2024-05-26 14:10] VITALS: BP 143/76; PULSE 93; TEMP 36.8; O2SAT 96; BMI 27.4
--- OUTSIDE RECORDS SUMMARY | 2024-05-26 14:11 | XMS_ITS | CCD ---
Author Organization [facility] Care Team Providers Care Notereader Name Role Phone ANGELINATAMIA Unavailable Unavailable , TAMIA Unavailable Unavailable Leon Kohli Admitting Unavailable [...] Attending Unavailable MARISSA, DR BONE Admitting Unavailable ELINA, DR ELMER Parrish Consulting Unavailable MARISSA, DR BONE Primary Care Unavailable SAMSA ., AGUILA Attending Unavailable SAMSA ., AGUILA Admitting Unavailable SAMSA ., AGUILA Consulting Unavailable MARISSA, DR BONE Consulting Unavailable MARISSA, DR BONE Primary Care Unavailable MARISSA, DR BONE Attending Unavailable MARISSA, DR BONE Admitting Unavailable YADAV, ZIGGY Consulting Unavailable NEFCY, GIN Consulting Unavailable MARISSA, DR BONE Consulting Unavailable MARISSA, DR BONE Primary Care Unavailable MARISSA, DR BONE Attending Unavailable MARISSA, DR BONE Admitting Unavailable ELINA, DR ELMER Parrish Consulting Unavailable KARASIK ., DR SCHMID Consulting Unavailabl e BALL, DR BONE Primary Care Unavailable KARASIK ., DR SCHMID Attending Unavailabl e KARASIK ., DR SCHMID Admitting Unavailabl e ELINA, DR ELMER Parrish Consulting Unavailable ZIEBER, DR GAMA Hinson Consulting Unavailable Marissa ONEIL, Clint Mckinney Primary Care Provider MIKAL LEMUS Attending Unavailable CHAY ALEJANDRE Attending Unavailable MIKAL LEMUS Referring Unavailable CHAY ALEJANDRE Attending Unavailable CHAY ALEJANDRE Attending Unavailable NIMCO TRIMBLE Attending Unavailable Allergies Allergy Classification Reported Allergen(s) Allergy Type Date of Onset Reaction(s) Facility (1 source) buPROPion; Translations: [BUPROPION HCL] Drug Allergy 03-05-20 16 [facility] Repository (6 sources) caffeine; Translations: [CAFFEINE] Drug Allergy 03-05-[address] [facility] Repository (1 source) cyclobenzaprine; Translations: [CYCLOBENZAPRINE HCL] Drug Allergy 10-01-19 [facility] (1 source) PROPOXYPHENE N-ACETAMINOPHEN; Translations: [PROPOXYPHENE N-ACETAMINOPHEN] Propensity to adverse reactions to drug (disorder) 03-05-20 16 [facility] Repository (8 sources) cyclobenzaprine; Translations: [Flexeril] Drug Allergy Unknown [facility] Repository (2 sources) buPROPion Drug Allergy 01-01-20 16 WELLBUTRIN [facility] Repository (1 source) Darvocet-N 100 Drug allergy (disorder) 01-01-20 16 [facility] Repository (5 sources) buPROPion Drug Allergy 06-27-19 05 Itching, Hives, Rash [facility] (5 sources) cyclobenzaprine Drug Allergy 06-12-20 17 Rash, Palpitations [facility] (1 source) Propoxyphene Drug Allergy 06-27-19 18 DARVOCET [facility] Other (1 source) Allergies Reconciled Propensity to adverse reactions Unknown [facility] Other (1 source) patient allergy list reviewed by nurse or physicia Propensity to adverse reactions 01-23-20 Comment:Done [facility]xy[facility] Other (1 source) Flexeril *MUSCULOSKELETAL THERAPY AGENTS* Propensity to adverse reactions Comment:Rash Oxy[facility] Other (1 source) Darvocet A500 *ANALGESICS - OPIOID* Propensity to adverse reactions Unknown Oxy[facility] Other (4 sources) Acetaminophen Drug Allergy 11-07-19 24 Itching [facility] (4 sources) Propoxyphene Drug Allergy 06-10-20 09 Itching [facility] (1 source) Darvocet A500 *ANALGESICS - OP Allergy to substance 12-16-19 Unknown Reaction [facility] (1 source) stimulants Propensity to adverse reactions 06-18-20 19 Unknown Reaction [facility] (1 source) sugar Propensity to adverse reactions 06-18-20 19 Unknown Reaction [facility] (3 sources) Oozfj-Snvdwco-Djie ch Drug Intolerance 06-18-20 19 Other [facility] Medications Current Medications Medication Drug Class(es) Dates Sig (Normalized) Sig (Original) aspirin 81 mg chewable tablet (11 sources) Platelet Aggregation Inhibitor, Nonsteroidal Anti-inflammatory Drug Start: 06-18-2019 take 81 mg by mouth once daily Aspirin Active 81 MG PO Daily June 18, 2019 1:00am take 1 tablet by supa th every twenty-four hours Aspirin 81 81 MG 1 tablet Orally Once a day Active Aspirin 81 Activ e atorvastatin 10 mg oral tablet (12 sources) HMG-CoA Reductase Inhibitor Start: 12-16-2023 take 10 mg by mouth once daily Atorvastatin Active 10 MG PO Daily December 16, 2023 12:00am Start: 12-21-2022 take 10 mg by mouth in the morning atorvastatin (Lipitor) 20 MG tablet Take 10 mg by mouth in the morning. 12/21/2022 Active Start: 06-23-2022 End: 12-16-2023 take 20 mg by mouth once daily Atorvastatin Discontinu ed 20 MG PO Daily June 23, 2022 1:00am December 16, 2023 11:27am take 1 tablet by supa th every twenty-four hours Atorvastatin Calcium 10 MG 1 tablet Orally Once a day Active Atorvastatin Sundeep cium Active lisinopril 5 mg oral tablet (16 sources) Angiotensin Converting Enzyme Inhibitor Start: 12-16-2023 [...] Fluticasone Propionate (Flonase Allergy Relief) 50 mcg/actuation [place],Suspension Discontinued 2 SPRAY INTRANASAL Daily June 18, 2019 1:00am June 23, 2022 8:20am oxymetazoline hydrochloride 0.5 mg/ml nasal spray (1 source) Start: 06-18-2019 End: 06-18-2019 Oxymetazoline (Afrin (Oxymetazoline)) 0.05 % [place],Non-Aerosol Discontinued 2 SPRAY INTRANASAL Q12H June 18, [...] Episodic Administrative/social admission (1 source) Informing health urgent care physician assistant of test result; Translations: [Person consulting for [...] uncertain behavior of colon] Onset: 05-27-2019 Episodic Osteoporosis (2 sources) Postmenopausal osteoporosis; Translations: [Age-related osteoporosis without current pathological fracture] 05-21-2024 Chronic Other and unspecified benign neoplasm (1 source) [...] conditions (not mental disorders or infectious disease) (9 sources) Encounter for screening for malignant neoplasm [...] and due to atherosclerosis; Translations: [Atherosclerosis of [place] arteries of extremities with intermittent claudication, bilateral [...] region; Translations: [Lumbosacral spondylosis without myelopathy] Onset: 07-14-2015 Chronic Spondylosis; intervertebral disc disorders; other back [...] 2 (situation); Translations: [Personal history of COVID-19] Urinary tract infections (2 sources) Urinary tract infectious disease; Translations: [Urinary tract infection, site not specified] 05-21-2024 Episodic Viral infection (1 source) Disease caused by [...] nonspecific abnormal finding of lung field; Translations: [OT NONSPECIFIC ABN FIND LNG FIELD] Onset: 01-16-2022 [...] Test Name Value Interpretation Reference Range Facility Urinalysis macro (dipstick) panel (U)on 05-21-2024 Bilirubin, UA Negative Negative - 4(70) +++ mg/dL [facility] Blood, UA Positive Negative - 50 Zachary/mcL [facility] Comment on above: trace Clarity, UA Clear [facility] Color, UA Yellow [facility] Glucose, UA Negative Negative - 1999(110) ++++ mg/dL [facility] Interpretation and review of laboratory results Abnormal [facility] Ketones, UA Negative Negative - 160(16) ++++ mg/dL [facility] Leukocytes, UA Negative Negative - 500+++ Phu/mcL [facility] Nitrite, UA Negative Negative - Positive [facility] pH, UA 5.5 5 - 9 [facility] Protein, UA Negative Negative - 2000(20) ++++ mg/dL [facility] Spec Grav, UA 1.015 1 - 1.03 [facility] Urobilinogen, UA 0.2 0.2 - 12 mg/dL [facility] Cytology Cervical or vaginal smear or scraping studyon 05-16-2023 [facility] HERPES SIMPLEX VIRUS (HSV) C ULTUREon 07-22-2022 HSV Culture/Type Comment Abnormal [facility] Comment on above: Result Comment: 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 Typing was confirmed by monoclonal antibody microscopic immunofluorescence. Performed By: #### H SVCUL #### [facility] [address] [place] [address] Dr. Jessica Sainz Covid-19 PCR ([facility])on SARS-CoV-2 (COVID-19) RNA JANICE+probe Ql (Unsp spec) Not detected Normal NOT DETECTED [facility] Comment on above: Result Comment: This test is not yet approved or cleared by the [place] FDA. When there are no FDA-approved or cleared tests available, and other criteria are met, FDA can make tests available under an emergency access mechanism called an Emergency Use Authorization (EUA). The EUA for this test is supported by the [place] of Health and Human Service's (HHS's) declaration [...] consistent with SARS-CoV-2. Performed By: #### C [facility] #### [facility] [address] [place] [address] Dr. Jessica Sainz XR CSPINE 2_3 VIEWSon [...] Date: 2022-05-16 11:55 Normal [facility] XR DEXA BONE DENSITYon 05-12 XR [...] Date: 2022-05-12 06:51 Normal [facility] MG MAMM SCREEN 3D ARNOLDO CADon 05-11-2022 MG MAMM SCREEN 3D ARNOLDO CAD Patient: CANDELARIA FOSTER Exam Date: 05/11/2022 : 1960 Gender:F Ordering : DR SHARMAINE CHAUDHARI . Admission #: [id number] Family : Order #: [id number] CLICK HERE TO VIEW EXAM RADIOLOGY REPORT [...] Family Cancers None LOCATION: [facility] BREAST COMPOSITION: Scattered areas fibroglandular density. [...] Antoine MD on 05/12/2022 at 08:[address] [facility] XR CHEST 2 Von 05-11-2022 XR CHEST [...] by: GIN DYSON Date: 2022-05-11 19:[address] [facility] XR HIP LT 2 3V [...] by: ZIGGY YADAV Date: 2022-05-11 18:[address] [facility] PAP ACOG PANEL 2: 30 to 65on 04-30-2022 . . Normal [facility] Comment on above: Result Comment: Perf ormed at: WB Performed By: #### [id number] #### [facility] [address] [address] [address] Jessica Sainz Age Gdln ACOG Testing 30-[address] [facility] Comment on above: Performed By: #### [id number] #### [facility] [address] [place] [address] Dr. Jessica Sainz DIAGNOSIS: Comment Normal [facility] Comment on above: Result Comment: NEGA TIVE FOR INTRAEPITHELIAL LESION OR MALIGNANCY. CELLULAR CHANGES ASSOCIATED WITH ATROPHY ARE PRESENT. Performed at: WB Performed By: #### [id number] #### [facility] [address] [place] [address] Dr. Jessica Sainz HPV Aptima Negative Normal Negative [facility] Comment on above: Result Comment: This nucleic acid amplification test detects fourteen high-risk HPV types (16,18,31,33,35,39,45,51,52,56,58,59,66,68) without differentiation. Performed at: =G Performed By: #### [id number] #### [facility] [address] [place] [address] Dr. Jessica Sainz HPV Genotype Reflex Comment Normal [facility] Comment on above: Result Comment: Crit eria not met, HPV Genotype not performed. Performed at: WB Performed By: #### [id number] #### [facility] [address] [place] [address] Dr. Jessica Sainz Methodology: Comment Normal [facility] Comment on above: Result Comment: This liquid based ThinPrep(R) pap test was screened with the use of an image guided system. Performed at: WB Performed By: #### [id number] #### [facility] [address] [place] [address] Dr. Jessica Sainz Note: Comment Normal [facility] Comment on above: Result Comment: The Pap smear is a screening test designed to aid in the detection of premalignant and malignant conditions of the uterine cervix. It is not a diagnostic procedure and should not be used as the sole means of detecting cervical cancer. Both false-positive and false-negative reports do occur. . Performed at: WB Performed By: #### [id number] #### [facility] [address] [address] [address] Jessica Sainz Performed by: Comment Normal [facility] Comment on above: Result Comment: Yi Osborn, Adhesive Bandage Machine Operator (ASCP) Performed at: WB Performed By: #### [id number] #### [facility] [address] [place] [address] Dr. Jessica Sainz Specimen adequacy: Comment Normal [facility] Comment on above: Result Comment: Sati sfactory for evaluation. Endocervical component may not be distinguished in cases of atrophy. Performed at: WB Performed By: #### [id number] #### [facility] [address] [place] [address] CHEST WO CONon [...] by: GAMA MI Date: 2022-01-17 09:30 Normal [facility] XR CHEST COMP MIN 4Von 01-07 [...] ELMER ANTOINE Date: 2022-01-07 07:18 Normal [facility] CBC AUTO DIFFon 12-08-2021 BASO # 0.1 103/ul Normal 0.0-0.[address] [facility] Comment on above: Performed By: #### C CBFS #### [facility] [address] [place] [address] Dr. Jessica Sainz Basophils/100 WBC (Bld) 1.7 % Normal 0.2-2.0 [facility] Comment on above: Performed By: #### C CBFS #### [facility] [address] [address] [address] Jessica Sainz EO # 0.5 103/ul Normal 0.0-0.[address] [facility] Comment on above: Performed By: #### C CBFS #### [facility] [address] [address] [address] Jessica Sainz Eosinophils/100 WBC (Bld) 7.9 % Critically high 0.9-7.[address] [facility] Comment on above: Performed By: #### C CBFS #### [facility] [address] [place] [address] Dr. Jessica Sainz Erythrocyte distribution width (RBC) [Ratio] 13.9 % Normal 11.0-15.[address] [facility] Comment on above: Performed By: #### C CBFS #### [facility] [address] [place] [address] Dr. Jessica Sainz Hematocrit (Bld) [Volume fraction] 41.7 % Normal 36.0-48.[address] [facility] Comment on above: Performed By: #### C CBFS #### [facility] [address] [place] [address] Dr. Jessica Sainz Hemoglobin (Bld) [Mass/Vol] 13.0 g/dL Normal 12.0-16.[address] [facility] Comment on above: Performed By: #### C CBFS #### [facility] [address] [place] [address] Dr. Jessica Sainz IG # 0.01 10e3/ul Normal 0.00-0.[address] [facility] Comment on above: Performed By: #### C CBFS #### [facility] [address] [place] [address] Dr. Jessica Sainz IG % 0.2 % Normal 0.0-0.[address] [facility] Comment on above: Performed By: #### C CBFS #### [facility] [address] [place] [address] Dr. Jessica Sainz LYMPH # 1.5 103/ul Normal 1.2-3.8 [facility] Comment on above: Performed By: #### C CBFS #### [facility] [address] [place] [address] Dr. Jessica Sainz Lymphocytes/100 WBC (Bld) 25.4 % Normal 20.5-60.[address] [facility] Comment on above: Performed By: #### C CBFS #### [facility] [address] [place] [address] Dr. Jessica Sainz MANUAL DIFF REQ NO Normal [facility] Comment on above: Performed By: #### C CBFS #### [facility] [address] [place] [address] Dr. Jessica Sainz MCH (RBC) [Entitic mass] 27.4 pg Normal 26.7-34.[address] [facility] Comment on above: Performed By: #### C CBFS #### [facility] [address] [place] [address] Dr. Jessica Sainz MCHC (RBC) [Mass/Vol] 31.2 g/dL Normal 29.9-35.[address] [facility] Comment on above: Performed By: #### C CBFS #### [facility] [address] [place] [address] Dr. Jessica Sainz MCV (RBC) [Entitic vol] 87.8 fL Normal 81.0-99.[address] [facility] Comment on above: Performed By: #### C CBFS #### [facility] [address] [place] [address] Dr. Jessica Sainz MONO # 0.5 103/ul Normal 0.3-0.[address] [facility] Comment on above: Performed By: #### C CBFS #### [facility] [address] [place] [address] Dr. Jessica Sainz Monocytes/100 WBC (Bld) 8.1 % Normal 1.7-12.[address] [facility] Comment on above: Performed By: #### C CBFS #### [facility] [address] [place] [address] Dr. Jessica Sainz NEUT # 3.3 103/ul Normal 1.4-6.5 [facility] Comment on above: Performed By: #### C CBFS #### [facility] [address] [place] [address] Dr. Jessica Sainz Neutrophils/100 WBC (Bld) 56.7 % Normal 43.0-75.[address] [facility] Comment on above: Performed By: #### C CBFS #### [facility] [address] [place] [address] Dr. Jessica Sainz Platelet mean volume (Bld) [Entitic vol] 9.7 fL Normal 9.5-13.[address] [facility] Comment on above: Performed By: #### C CBFS #### [facility] [address] [place] [address] Dr. Jessica Sainz PLT 266 103/ul Normal 150-450 [facility] Comment on above: Performed By: #### C CBFS #### [facility] [address] [place] [address] Dr. Jessica Sainz RBC 4.75 106/ul Normal 4.20-5.[address] [facility] Comment on above: Performed By: #### C CBFS #### [facility] [address] [place] [address] Dr. Jessica Sainz WBC 5.8 103/ul Normal 4.0-11.[address] [facility] Comment on above: Performed By: #### C CBFS #### [facility] [address] [place] [address] Dr. Jessica Sainz LIPID PROFILEon 12-08-2021 CHOL-HDL RATIO NORM SEE BELOW Normal [facility] Comment on above: Result Comment: 3.3 - 4.4 LOW RISK 4.4 - 7.1 AVERAGE RISK 7.1 - 11.0 MODERATE RISK >11.0 HIGH RISK Performed By: #### H SVCUL #### [facility] [address] [place] [address] Dr. Jessica Sainz Cholesterol [Mass/Vol] 208 mg/dL Critically high <=200 [facility] Comment on above: Performed By: #### H SVCUL #### [facility] [address] [place] [address] Dr. Jessica Sainz Cholesterol in HDL [Mass/Vol] 63 mg/dL Critically high 40-60 [facility] Comment on above: Performed By: #### H SVCUL #### [facility] [address] [place] [address] Dr. Jessica Sainz Cholesterol in LDL [Mass/Vol] 122.8 mg/dL Normal [facility] Comment on above: Performed By: #### H SVCUL #### [facility] [address] [address] [address] Jessica Sainz Cholesterol.total /Cholesterol in HDL [Mass ratio] 3.3 {ratio} Normal [facility] Comment on above: Performed By: #### H SVCUL #### [facility] [address] [address] [address] Jessica Sainz HDL NORMAL > or = 60 mg/dl - LO W CARDIOVASCULAR RISK <40 mg/dl - HIGH CARDIOVASCULAR RISK Normal [facility] Comment on above: Performed By: #### H SVCUL #### [facility] [address] [address] [address] Jessica Sainz LDL CALC NORMAL SEE BELOW Normal [facility] Comment on above: Result Comment: <100 mg/dl OPTIMAL 100 - 129 mg/dl NEAR OR ABOVE OPTIMAL 130 - 159 mg/dl BORDERLINE HIGH 160 - 189 mg/dl HIGH >190 mg/dl VERY HIGH Performed By: #### H SVCUL #### [facility] [address] [place] [address] Dr. Jessica Sainz Triglyceride [Mass/Vol] 111 mg/dL Normal <=[address] [facility] Comment on above: Performed By: #### H SVCUL #### [facility] [address] [place] [address] Dr. Jessica Sainz VLDL CALC 22.2 mg/dL Normal [facility] Comment on above: Performed By: #### H SVCUL #### [facility] [address] [place] [address] Dr. Jessica Sainz PROF 14(COMP METB)on 022 Albumin [Mass/Vol] 4.0 g/dL Normal 3.4-5.[address] [facility] Comment on above: Performed By: #### H SVCUL #### [facility] [address] [place] [address] Dr. Jessica Sainz Albumin/Globulin [Mass ratio] 1.0 {ratio} Normal [facility] Comment on above: Performed By: #### H SVCUL #### [facility] [address] [address] [address] Jessica Sainz ALP [Catalytic activity/Vol] 111 U/L Normal 46-116 [facility] Comment on above: Performed By: #### H SVCUL #### [facility] [address] [address] [address] Jessica Sainz ALT [Catalytic activity/Vol] 21 U/L Normal 14-[address] [facility] Comment on above: Performed By: #### H SVCUL #### [facility] [address] [address] [address] Jessica Sainz Anion gap [Moles/Vol] 11.5 mmol/L Normal [facility] Comment on above: Performed By: #### H SVCUL #### [facility] [address] [address] [address] Jessica Sainz AST [Catalytic activity/Vol] 16 U/L Normal 15-[address] [facility] Comment on above: Performed By: #### H SVCUL #### [facility] [address] [address] [address] Jessica Sainz Bilirubin [Mass/Vol] 0.4 mg/dL Normal 0.2-1.[address] [facility] Comment on above: Performed By: #### H SVCUL #### [facility] [address] [address] [address] Jessica Sainz Calcium [Mass/Vol] 9.2 mg/dL Normal 8.5-10.1 [facility] Comment on above: Performed By: #### H SVCUL #### [facility] [address] [address] [address] Jessica Sainz Chloride [Moles/Vol] 102 mmol/L Normal 98-107 [facility] Comment on above: Performed By: #### H SVCUL #### [facility] [address] [address] [address] Jessica Sainz CO2 [Moles/Vol] 29.8 mmol/L Normal 21.0-32.0 [facility] Comment on above: Performed By: #### H SVCUL #### [facility] [address] [address] [address] Jessica Sainz Creatinine [Mass/Vol] 0.62 mg/dL Normal 0.55-1.[address] [facility] Comment on above: Performed By: #### H SVCUL #### [facility] [address] [address] [address] Jessica Sainz EGFR-AF CAMBODIAN >60 Normal >=[address] [facility] Comment on above: Performed By: #### H SVCUL #### [facility] [address] [address] [address] Jessica Sainz EGFR-NON AF CAMBODIAN >60 Normal >=[address] [facility] Comment on above: Performed By: #### H SVCUL #### [facility] [address] [address] [address] Jessica Sainz Globulin (S) [Mass/Vol] 4.2 g/dL Normal [facility] Comment on above: Performed By: #### H SVCUL #### [facility] [address] [address] [address] Jessica Sainz Glucose [Mass/Vol] 92 mg/dL Normal 74-106 [facility] [facility] Comment on above: Performed By: #### H SVCUL #### [facility] [address] [address] [address] Jessica Sainz Potassium [Moles/Vol] 4.3 mmol/L Normal 3.5-5.1 [facility] Comment on above: Performed By: #### H SVCUL #### [facility] [address] [address] [address] Jessica Sainz Protein [Mass/Vol] 8.2 g/dL Normal 6.4-8.2 [facility] Comment on above: Performed By: #### H SVCUL #### [facility] [address] [address] [address] Jessica Sainz Sodium [Moles/Vol] 139 mmol/L Normal 136-145 [facility] Comment on above: Performed By: #### H SVCUL #### [facility] [address] [address] [address] Jessica Sainz Urea nitrogen [Mass/Vol] 16.0 mg/dL Normal 7.0-18.[address] [facility] Comment on above: Performed By: #### H SVCUL #### [facility] [address] [address] [address] Jessica Sainz Urea nitrogen/Creatini ne [Mass ratio] 25.8 mg/mg Normal [facility] Comment on above: Performed By: #### H SVCUL #### [facility] [address] [place] [address] Dr. Jessica Sainz TSHon 12-08-2021 TSH 1.419 uIU/mL Normal 0.358-3.[address] [facility] Comment on above: Performed By: #### H SVCUL #### [facility] [address] [address] [address] Jessica Sainz VITAMIN D 25 OHon 12-08-2021 VIT D 25-OH 39.3 ng/mL Normal [facility] Comment on above: Performed By: #### V ITAD #### [facility] [address] [place] [address] Dr. Jessica Sainz VIT D RANGES SEE BELOW [facility] Comment on above: Result Comment: <20 ng/mL Vit D deficient 20 - <30 ng/mL Vit D insufficient 30 - 100 ng/mL Vit D sufficient >100 ng/mL Potential Toxicity Performed By: #### V ITAD #### [facility] [address] [place] [address] Dr. Jessica Sainz ACID FAST SMEAR AND CXon Acid Fast Culture Negative Normal [facility] Comment on above: Result Comment: No a nolan fast bacilli isolated after 6 weeks. Performed By: #### H SVCUL #### [facility] [address] [place] [address] Dr. Jessica Sainz Acid Fast Smear Negative Normal [facility] Comment on above: Performed By: #### H SVCUL #### [facility] [address] [place] [address] Dr. Jessica Sainz AF[employer] Specimen Processing Direct Inoculation [facility] Comment on above: Performed By: #### H SVCUL #### [facility] [address] [place] [address] Dr. Jessica Sainz FUNGAL CULTUREon 11-10-2021 Fungus (Mycology) Culture Final report Normal [facility] Comment on above: Performed By: #### C CBFS #### [facility] [address] [place] [address] Dr. Jessica Sainz Fungus Stain Final report Normal [facility] Comment on above: Performed By: #### C CBFS #### [facility] [address] [place] [address] Dr. Jessica Sainz Result [address] [facility] Comment on above: Result Comment: JOJO/ Calcofluor preparation: no fungus observed. Performed By: #### C CBFS #### [facility] [address] [place] [address] Dr. Jessica Sainz Result Comment: No y east or mold isolated after 4 weeks. BODY FLUID CULTUREon Anaerobic Culture, Extended Incubation Final report [facility] Comment on above: Performed By: #### H SVCUL #### [facility] [address] [place] [address] Dr. Jessica Sainz Body Fluid Culture, Sterile Final report Normal [facility] Comment on above: Performed By: #### H SVCUL #### [facility] [address] [place] [address] Dr. Jessica Sainz Result [address] Comment [address] [facility] Comment on above: Result Comment: No g rowth in 56 - 72 hours. Performed By: #### H SVCUL #### [facility] [address] [place] [address] Dr. Jessica Sainz Result Comment: No a naerobes recovered. No anaerobic growth after 14 days LAB DAVID MISC TESTon 022 Referral Lab Comment Normal [facility] Comment on above: Result Comment: [facility] Performed By: #### L CMISC #### [facility] [address] [place] [address] Dr. Jessica Sainz Referral Test Code or Mnemonic Comment Normal [facility] Comment on above: Result Comment: 2002 Performed By: #### L CMISC #### [facility] [address] [place] [address] Dr. Jessica Sainz Referral Test Name Comment Normal [facility] Comment on above: Result Comment: RHEU MATOID FACTOR Performed By: #### L CMISC #### [facility] [address] [place] [address] Dr. Jessica Sainz Referral Test Results Comment Normal [facility] Comment on above: Result Comment: Refe rence lab report sent via fax. Performed By: #### L CMISC #### [facility] [address] [place] [address] Dr. Jessica Sainz PH, BODY FLUIDon 10-15-2021 pH, Body Fluid 7.6 Normal Not Estab. [facility] Comment on above: Result Comment: The reference interval(s) and other method performance specifications have not been established for this body fluid. The test result must be integrated into the clinical context for interpretation. Performed By: #### B DYFLPH #### [facility] [address] [place] [address] Dr. Jessica Sainz AMYLASE, BODY FLUIDon 2021 Amylase [Catalytic activity/Vol] 40 U/L Normal [facility] Comment on above: Result Comment: ____ : BODY FLUID TYPE : AMYLASE : : : : : Lymph : 50 - 83 : : : : : Peritoneal : : : Fluid : 88 - 109 : : : : : Saliva : : : (Mixed Glands) : [id number] - [id number] : : : : . Gladys W, Cher V. Reference Intervals for Adults and Children 2008. Ninth Edition (V9.1) [employer], [facility]; [place]: December 2008. The method performance specifications have not been established for this test in body fluid. The test result should be integrated into the clinical context for interpretation. Performed By: #### H SVCUL #### [facility] [address] [place] [address] Dr. Jessica Sainz CELL COUNT BODY FLUIDon 09-25 Clarity, Serous Clear Normal Clear [facility] Comment on above: Performed By: #### C CBFS #### [facility] [address] [place] [address] Dr. Jessica Sainz Color, Serous Straw Normal [facility] Comment on above: Result Comment: Corbin rless to Pale Yellow/Straw Performed By: #### C CBFS #### [facility] [address] [place] [address] Dr. Jessica Sainz Comments: Normal [facility] Comment on above: Performed By: #### C CBFS #### [facility] [address] [place] [address] Dr. Jessica Sainz Eosinophils/100 WBC (Bld) 8 % Normal Not Estab. [facility] Comment on above: Performed By: #### C CBFS #### [facility] [address] [place] [address] Dr. Jessica Sainz Lining Cells, Serous Normal [facility] Comment on above: Performed By: #### C CBFS #### [facility] [address] [place] [address] Dr. Jessica Sainz Lymphocytes/100 WBC (Bld) 27 % Normal Not Estab. [facility] Comment on above: Performed By: #### C CBFS #### [facility] [address] [place] [address] Dr. Jessica Sainz Macrophages, Serous 39 % Normal Not Estab. [facility] Comment on above: Performed By: #### C CBFS #### [facility] [address] [address] [address] Jessica Sainz Nucleated Cells, Serous 1586 /mm3 Critically high 0-[address] [facility] Comment on above: Result Comment: Pleu ral Fluid, with <1000 Nucleated cells/uL has been associated with transudates while >1000 uL may be seen in exudates. Performed By: #### C CBFS #### [facility] [address] [place] [address] Dr. Jessica Sainz Polys, Serous 26 % Critically high 0-24 [facility] Comment on above: Performed By: #### C CBFS #### [facility] [address] [place] [address] Dr. Jessica Sainz RBC, Serous Rare Normal Not Estab. [facility] Comment on above: Performed By: #### C CBFS #### [facility] [address] [place] [address] Dr. Jessica Sainz GLUCOSE BODYFLUIDon 10-14-19 22 Glucose, Body Fluid 91 mg/dL Normal [facility] Comment on above: Result Comment: [...] - 288 : : : : . Gladys W, Cher V. Reference Intervals for Adults and Children 2008. Ninth edition (V9.1) [employer], [facility]; [place]: December 2008. The reference intervals and other method performance specifications have not been established for this test. The test result should be integrated into the clinical context for interpretation. Performed By: #### B FGLUC #### [facility] [address] [place] [address] Dr. Jessica Sainz LACTIC ACID DEHYDROGENASE (L D), BODY FLUon 10-13-2021 LD, Body Fluid 220 IU/L Normal [facility] Comment on above: Result Comment: ____ [...] : <240 : : : : . Gladys WCher V. Reference Intervals for Adults and Children 2007. Ninth Edition (V9.1) [employer], [facility]; [place]: December 2008. The reference intervals and other method performance specifications have not been established for this test. The test result should be integrated into the clinical context for interpretation. Performed By: #### C CBFS #### [facility] [address] [place] [address] Dr. Jessica Sainz PROTEIN, TOTAL, BODY FLUIDon 10-13-2021 Protein, Body Fluid 4.4 g/dL Normal [facility] Comment on above: Result Comment: ____ [...] - 0.9 : : : : . Gladys WCher V. Reference Intervals for Adults and Children 2008. Ninth Edition (V9.1) [employer], [facility]; [place]: December 2008. The method performance specifications have not been established for this test in body fluid. The test result should be integrated into the clinical context for interpretation. Performed By: #### T PBF #### [facility] [address] [place] [address] Dr. Jessica Sainz CYTOLOGYon 2021 SENT TO REF LAB 2021 Normal [facility] Comment on above: Performed By: #### C YTO #### [facility] [address] [place] [address] Dr. Jessica Sainz XR CHEST 1 Von [...] by: GAMA MI Date: 2021 10:[address] [facility] CT CHEST WO CONon 09-30-2021 [...] by: GAMA MI Date: 2021-09-30 16:[address] [facility] CNPNon 11-18-2017 CNPN Telephone ([employer]) ------CANDELARIA FOSTER ([id number]) 1960 FDate Time Provider Department11/18/17 KARINA WILLIS [...] medical team for review and adviseMary TREMAYNE Cheung.SARAH 11/18/2017 1:04 PM SignedPatients commonly experience an odor following this procedure.She should continue to monitor and perform jatin care as directed postoperatively.If she experiences fever or is concerned over the weekend, she should call orgo to the ED.We can check with her next week and see if there is improvement.Jenna Cheung APRN.Abiel Willis RN, RN 11/18/2017 1:25 PM AddendumPatient called and informed that this is a common experience. She understandsand agrees to continue to monitor and will go to ED if s/s of infection. Willcontinue to perform jatin care.Nano Marshall RN, RN 11/22/2017 2:45 PM SignedPatient called [...] FOR* Abnormal stress test [R94.39] INVALID FOR* SILAS III (vulvar intraepithelial neoplasia III) *INVALID FOR* More... Status:Closed by JENNA CHEUNG CNP on 11/18/17 [facility] ANES Darek 11-03-2017 ANES POST HNO ID: [id number] thor: Delisa Henderson AService: AnesthesiologyAuthor Type: AnesthesiologistType: Anesthesia PostOpFiled: 11/03/2017 9:32 AMNote Text:POST ANESTHESIA EVALUATION NOTESERVICE DATE: 11/03/2017SERVICE TIME: 929DOB: 1960Vitals: 11/04/1807Temp: 36.7 ?C (98.1 ?F) 36 ?C (96.8 ?F) 11/04/1807P: 154/76 154/82 155/88 157/85 11/04/1807Pulse: 76 75 70 70 11/04/1807Resp: 19 15 17 14 11/04/18075SpO2: 100% 100% 96% 97%Validated Vital Signs: YesPOST [...] 03, 2017 : 9:31 AM PAGER/CONTACT #: Ifeanyi [facility] ANES PREOPon 11-03-2017 ANES PREOP HNO ID: [id number] thor: Delisa Henderson AService: AnesthesiologyAuthor Type: AnesthesiologistType: Anesthesia PreOpFiled: 11/03/2017 8:03 AMNote Text:REGIONAL ANESTHESIOLOGY DAY OF SURGERY NOTEPATIENT NAME: Candelaria FosterMRN: [id number]: 1960Procedure(s) (LRB):VULVECTOMY PARTIAL SIMPLE (Left)Surgeon(s):Tamia TorresEstimated body mass index is 30.18 kg/m? as calculated from the following: Height as of 10/19/17: 157.5 cm (5' 2 ). Weight as of 10/19/17: 74.8 kg (165 lb).ASA Class: 2Adequate NPO status: YesAllergies:ALLERGIESAller gen Reactions- Caffeine Intolerance- Darvocet A500 [Prop* Itching- [...] arteries- HYSTERECTOMY HX- PAST SURGICAL HISTORY OF [place] Teeth Extraction- PAST SURGICAL HISTORY OF [facility] on scalpFAMILY HISTORYProblem Relation Age of Onset- Heart Father d. @ 42 of [place]- Heart Paternal Grandfather d. @ 45 of [place]- Heart Brother Cardiac Stent Placement- Heart Sister- [...] contains updated information obtained within 48 hours ofSurgery/Procedure.SIGNATU RE: Mikal Ferrer CRNA PATIENT NAME: Candelaria HernándezTE: November 03, 2017 : 7:18 AM PAGER/CONTACT #:Attending Note:Batres findings confirmed. Patient examined. Discussed with the MACHINE ADJUSTER HELPER andthe patient. Plan as outlined.Ihab Ta Henderson, MDMa20178:03 AM [facility] BRIEF OP NOTon 11-03-2017 BRIEF OP NOT HNO ID: [id number] thor: Jorge Brennan: Gynecology OncologyAuthor Type: PhysicianType: Brief Op NoteFiled: 11/03/2017 8:24 AMNote Text:BRIEF OP NOTELOG ID: [id number]/Procedure Date: 11/03/2017Incision/Procedure Start Time: 8:04 AMIncision Close/Procedure End Time: 8:18 AMSurgeon(s)/Proceduralist( s) and Piece Work Checker(s):Surgeon(s) and Role: * Tamia Torres - Primary [...] mlsSpecimens: periclitoral and right perinealComplications: NonePre-Op/Pre-Procedure Diagnosis: SILAS IIIPost-Op/Post-Procedure Diagnosis: SILAS III (vulvar intraepithelialneoplasia III) [D07.1]SIGNATURE: Rah Brennan MD PATIENT NAME: Candelaria FosterDATE: November 03, 2017 : 8:22 AM PAGER/CONTACT #: [facility] HISTORY PHYSICALon 8 HISTORY PHYSICAL HNO ID: [id number] thor: Clair Diaz (Res)Service: Gynecology OncologyAuthor Type: [...] November 03, 2017 : 7:30 AM PAGER: [phone] [facility] NURSING PROGon 11-03-2017 NURSING PROG HNO ID: [id number] thor: Elma Frazier (Rn), RNService: NursingAuthor Type: Registered NurseType: Nursing Progress NoteFiled: 11/03/2017 8:42 AMNote Text: Nursing Progress NotePatient Name: Candelaria FosterMRN: [id number] Location: OR POOL/FV OR POOL 0828 Pt arrived from OR and attached to PACU monitor. Assessmentcompleted see assessment section. No signs of bleeding noted.This note was completed by: Elma Frazier RN [facility] OPERATIVE NOon 11-03-2017 OPERATIVE NO HNO ID: [id number] thor: Allyn Torreservice: Gynecology OncologyAuthor Type: PhysicianType: Operative ReportFiled: 11/04/2017 1:12 PMNote Text:OPERATIVE/PROCEDURE REPORTLOG ID: [id number]/PROCEDURE DATE: 11/03/2017INCISION/PROCEDURE START TIME: 8:04 AMINCISION CLOSE/PROCEDURE END TIME: 8:18 AMSURGEON(S)/PROCEDURALIST( S) AND SCAFFOLD BUILDER(S):Surgeon(s) and Role: * Tamia Torres - Primary * Rah Brennan - Fellow * Clair (Igor Diaz - Resident - AssistingNo Additional StaffSURGERY/PROCEDURE(S):E xam under anaesthesia, vulvar wide local excision?ANESTHESIA: General?SURGERY/PROCEDURE [...] and wastransferred to the recovery room after extubation.?Pre-Op/Pre-Proc edure Diagnosis: SILAS-3?Post-Op/Post-Procedur e Diagnosis:?Same ??Estimated Blood Loss:?5?mls?Specimens:?Vulv ar lesions x 2?Implantable Devices:?None?Drains:?None? Complications: None?I performed the procedure with assistance.SIGNATURE: Tamia Torres MD PATIENT NAME: Candelaria FosterDATE: November 04, 2017 : 1:09 PM PAGER/CONTACT #: [facility] PLAN OF CAREon 11-03-2017 PLAN OF CARE HNO ID: [id number] thor: Rupesh (Medical Claims Specialist), Tameraice: (none)Author Type: TechnicianType: Plan of CareFiled: 11/04/2017 9:27 AMNote Text:PHARMACY BEDSIDE DELIVERY SERVICEPatient Name: Candelaria FosterN: [id number] marked outpatient medications were filled and deliveredMedication [...] them or your Primary Care Provider.Iveth Goddard ([employer])PAGER: [phone] 2017 9:27 AM [facility] PLAN OF CARE HNO ID: [id number] thor: Rupesh ([employer])Dorinda: (none)Author Type: TechnicianType: Plan of CareFiled: 11/03/2017 10:31 AMNote Text:Pharmacy Discharge Medication Service:This patient has elected [facility] their [facility]. Theprescriptions are currently being processed. A follow-up note will beentered once the prescriptions have been filled and delivered to thepatient. Please contact me with any questions or updates to the patient'sdischarge medications.Iveth Goddard ([employer])DCT Contact Info: [id number] [facility] PLAN OF CARE HNO ID: [id number] thor: Rupesh HillNet[facility])Dorinda: (none)Author Type: TechnicianType: Plan of CareFiled: 11/03/2017 10:31 AMNote Text:ASSORTMENT PLANNER BEDSIDE DELIVERY SURVEY1. Patient to use [facility] Bedside Delivery - YES2. If fax, patient would like us to fax prescriptions to [facility] a. Pharmacy: b. Location: c. Phone:3. Insurance card on file - YES4. Credit card for payment - N/A [facility] PT EDon 11-03-2017 PT ED HNO ID: [id number] thor: Kamla Zambrano (Rn), RNService: NursingAuthor Type: Registered NurseType: Patient EducationFiled: 11/03/2017 6:43 AMNote Text:PRE OP LEARNING ASSESSMENTPROCEDURE/SURGERY : SURGERY:READINESS TO LEARNCOGNITIVE ABILITY: Alert and orientedMOTIVATION TO LEARN: EagerFAMILY SUPPORT: Unable to assess - Family not presentPATIENT LEARNS BEST BY: Individual InstructionFACTORS AFFECTING LEARNING: NonePHYSICAL LIMITATIONS AFFECTING LEARNING: NoneElectronically Signed By: Kamla Zambrano RN In Department: [facility] OPERATING ROOM [facility] SURGICAL PATHOLOGYon 018 SURGICAL PATHOLOGY [facility]: [id number] Physician: TAMIA TORRES MD FINAL DIAGNOSIS1. Right peroneal lesion, biopsy (A) - Benign squamous epithelium, negativefor dysplasia.- Chronic spongiotic dermatitis. 2. Left periclitoral lesion, biopsy (B) - Acute and chronic inflammationwith focal ulceration (see comment). BY/glbebe 11/07/2017 COMMENTImmunostaining on B3 shows that epithelial cells adjacent to ulcer havenormal p53 expression pattern and are negative for p16, supporting theabove diagnosis. Arnoldo Melgar M.D. Ph.D.(Electronic Signature) SPEC IMEN SUBMITTEDA: RIGHT PERINEAL LESION B: LEFT JATIN-CLITORAL [...] sequential order from 12 o'clock to 6 o'clock.WE/db 11/03/2017 Gross examination performed at [facility], [address] [place] [address] of Report: 11/08/2017Date of Procedure: 11/03/2017Date of Receipt: 11/03/2017Submitted by: TAMIA TORRES MDLocation: FVORDiagnostic interpretation performed at [facility], [address] [place] [address]. Normal [facility] Comment on above: Performed By: #### P ATHS ####[place] [address] NURSING PROGon 10-26-2017 NURSING PROG HNO ID: [id number] thor: Bambi (Rn) Lyon, RNService: General SurgeryAuthor Type: Registered NurseType: Nursing Progress NoteFiled: 10/26/2017 4:26 PMNote Text:PACC Nurse Progress NoteHistory AND Physical:PACC Visit Date: 6-37-68Ngvqqwwl HANDP Date: N/AED visit Date: N/AOutside HANDP Scanned Date: N/ALabs Within Last 6 Months:CBC: Date 10-19-17BMP/CMP: Date 0-13-11Jmoaydi Within Last 12 Months:N/ACardiac Testing:EKG in last 12 Months: Yes: Date: 10-19-17, Comment: Confirmed in EPIC.Last Menstrual Period:LMP Date: UnknownPostmenopausal >1yr: Yes,S/P Hysterectomy: YesBMI Percentile (PEDS):N/ARisk Assessment:N/AAnesthesia Review:N/ANarrative:N/APre- op Considerations:N/AChart Check:Stella Gonsalezy 2017 4:25 PM Normal [facility] HOSPon 10-05-2017 HOSP Patient:Sumi Foster LMRN: [...] List:Intercostal pain [R07.82]Mixed hyperlipidemia [E78.2]Abnormal stress test [R94.39]SILAS III (vulvar intraepithelial neoplasia III) [D07.1]Allergies:CaffeineDa rvocet A500 [Propoxyphene N-Acetaminophen]Flexeril [Cyclobenzaprine Hcl]Wellbutrin [Bupropion Hcl]Date Verified: 11/03/17Lab ValuesLab Value Units Date High LowPOTA* 4.6 mmol/L 10/19/2017 5.1 3.7HEMA* 43.3 % 10/19/2017 46.0 36.0Progress Notes ([facility]Aleena Cuenca (Rn), RN 10/31/2017 3:20 PM SignedPt is scheduled for vulvectomy with Dr. Torres on 11/03/17Pt calls today stating she had flare up of hemorrhoids this weekend and askingif okay to use preparation H. Instructed her that it would most likely be okayas long as it is not used on day of procedure and area is clean and dry.Advised I would discuss with SALES PRODUCT MANAGER and call her backShe also states that [...] RN 11/01/2017 4:33 PM SignedInformed pt of SALES PRODUCT MANAGER's message to go ahead and use prep [...] use cortizone creamthere.Will update medical teamGalina Dowell (Manager House) 11/02/2017 3:08 PM SignedWould not advise any creams in anticipation of procedure for tomorrowThNano Bentley (Rn), RN 11/02/2017 3:49 PM SignedLeft for patient in regards to message below.Progress Notes ([facility]):Aleena Cuenca (Rn), RN 10/26/2017 1:57 PM SignedLeft for pt to call office to discuss pre-op instructions prior to surgerywith Dr. Torres on 11/03/17Nimco Tong RN 10/27/2017 4:00 PM SignedPatient returning call for pre op instructions.Procedure: VULVECTOMY PARTIAL SIMPLEPhysician: Tamia TorresLocation: [facility]: [phone] AND Time: 11/03/2017MEDICAL CLEARANCE: No CARDIAC CLEARANCE: NoPRE ADMISSION TESTIN10/19/17 AT: [facility]): [phone] FOLLOWING WAS EVALUATED Motivation To Learn: Interested [...] Celebrex MotrinAggrenox Clinoril Naprosyn(naproxen)Agrylin NSAIDS Pepto-BismolAleve Ecotrin PersantineAlka-[place] Excedrin PlaquenilAnacin Heparin PlavixAscriptin Herbals PletalAspergum Ibuprofen [...] - IV pain medication after surgery, IV MOUNTER FLUTES AND PICCOLOS if ordered by MD,discharged home with a prescription for PO pain medication, pain managementafter surgery, side effects of pain medication (including constipation,dizziness, drowsiness, and medication interactions).DVT PROPHYLAXIS - Early ambulation, SCDs, injectable anticoagulants (heparin,lovenox, etc)RESPIRATORY - Incentive spirometer, coughing/deep breathing exercises,ambulation.RETURN TO WORK - As directed by physician, please send any [facility] papers tophysician's laboratory secretary.SYMPTOMS TO NOTIFY MD - Fever, chills, nausea, vomiting, increased or severepain, heavy vaginal bleeding, foul smelling vaginal drainage, pain or swellingin extremities.URGENT SYMPTOMS - Call 911 or go to ER if any shortness of breath, difficultybreathing, or chest pain.HOW TO CONTACT PHYSICIAN - Physician's office phone number given to patient, ifafter hours patient instructed to call facing cutting machine operator and ask for the doctor social media content specialist.Patient and family have phone number to call 24 hours/day.Patient Evaluation: Verbalizes understandingPatient and/or family express understanding of upcoming surgery and theoperative process. Questions answered.Follow Up Plan: Follow up as neededSupplemental Material Given:Pre-operative teaching packet provided to the patient:INPATIENT/OUTPATIEN T printed instructions; Post-operative instruction sheet,bowel prep instruction sheetFor questions contact: Tamia Torres's office at [phone] By Nimco Garza RN Normal [facility] Vital Signs Date Time Vital Sign Value Performing Clinician Facility 05-21-2024 10:44-0500 Body mass index (BMI) [Ratio] 26.43 kg/m2 Nimco LIANG Work Phone: [facility] 05-21-2024 10:44-0500 Body weight 69.85 kg Nimco LIANG Work Phone: [facility] 05-21-2024 10:44-0500 Diastolic blood pressure 70 mm[Hg] Nimco LIANG Work Phone: [facility] 05-21-2024 10:44-0500 Systolic blood pressure 124 mm[Hg] Nimco LIANG Work Phone: [facility] 12-16-2023 11:27-0400 Body height 157.48 cm [facility] 12-16-2023 11:27-0400 Body mass index (BMI) [Ratio] 27.3 kg/m2 [facility] 12-16-2023 11:27-0400 Body weight 67.75 kg [facility] 12-16-2023 11:27-0400 Diastolic blood pressure 81 mm[Hg] [facility] 12-16-2023 11:27-0400 Heart rate 75 /min [facility] 12-16-2023 11:27-0400 Respiratory rate 12 /min [facility] 12-16-2023 11:27-0400 Systolic blood pressure 143 mm[Hg] [facility] 12-14-2022 11:00-0400 Body height 156.21 cm Clint Ball Other [facility] Other 12-14-2022 11:00-0400 Body mass index (BMI) [Ratio] 28.25 kg/m2 Clint Ball Other [facility] Other 12-14-2022 11:00-0400 Body weight 68.95 kg Clint Ball Other [facility] Other 12-14-2022 11:00-0400 Diastolic blood pressure 73 mm[Hg] Clint Veras Other [facility] Other 12-14-2022 11:00-0400 Respiratory rate 12 /min Clint Veras Other [facility] Other 12-14-2022 11:00-0400 Systolic blood pressure 112 mm[Hg] Clint Veras Other [facility] Other Encounters Encounter Date Encounter Type Care Provider Facility Start: 05-21-2024 End: 05-21-2024 Bamboo flowsheet Nimco LIANG Work Phone: [facility] Start: 05-21-2024 End: 05-21-2024 Bamboo flowsheet Nimco LIANG Work Phone: [facility] Start: 05-21-2024 End: 05-21-2024 Patient encounter procedure Nimco LIANG Work Phone: [facility] Start: 05-21-2024 End: 05-21-2024 Periodic preventive med est patient 40-64yrs Nimco LIANG Work Phone: [facility] Comment on above: Well woman exam with routine gynecological exam; H/O: hysterectomy; Breast cancer screening by mammogram; Osteoporosis, post-menopausal (CMS/HCC); Urinary tract infection without hematuria, site unspecified Start: 05-21-2024 End: 05-21-2024 ambulatory NIMCO TRIMBLE Not Available Start: 03-06-2024 End: 03-06-2024 ambulatory CHAY ALEJANDRE Not Available Start: 01-04-2024 End: 01-04-2024 ambulatory CHAY ALEJANDRE Not Available Start: 12-16-2023 End: 12-16-2023 ambulatory [facility] Work Phone: Start: 12-16-2023 End: 12-16-2023 Encounter for general adult medical examination without abnormal findings [facility] Start: 12-16-2023 End: 12-16-2023 Patient encounter procedure [facility] Work Phone: Start: 12-07-2023 End: 12-07-2023 ambulatory CHAY ALEJANDRE Not Available Start: 11-07-2023 End: 11-07-2023 ambulatory MIKAL LEMUS Not Available Start: 01-21-2023 End: 01-21-2023 ambulatory Clint Veras Other [facility] Other Start: 01-21-2023 Telephone encounter Clint Mantilla [facility] Start: 12-15-2022 End: 12-15-2022 ambulatory Clint Veras Other [facility] Other Start: 12-15-2022 Telephone encounter Clint Mantilla [facility] Start: 12-14-2022 End: 12-14-2022 ambulatory Clint Veras Other [facility] Other Start: 12-14-2022 Encounter for genera l adult medical examination without abnormal findings Clint Veras [facility] Start: 12-14-2022 Periodic preventive med est patient 40-64yrs Clint Veras [facility] Start: 07-16-2022 End: 07-16-[address] SHARMAINE CHAUDHARI . [facility] Other Start: 07-16-2022 Telephone encounter Clint Matnilla Plastics Nurse Start: 06-27-2022 End: 07-13-[address] CLINT VERAS Facility:[facility] Start: 06-23-2022 End: 06-23-2022 ambulatory Leon Kohli Facility:[facility] Start: 06-22-2022 End: 06-22-2022 ambulatory Leon Kohli Other [facility] Other Start: 06-22-2022 Telephone encounter Leon Mantilla [facility] Start: 06-16-2022 End: 06-26-[address] CLINT VERAS Facility:[facility] Start: 06-08-2022 End: 06-08-2022 ambulatory David Lemus Other [facility] Other Start: 06-08-2022 Office outpatient ne w 45 minutes David Lemus [facility] Start: 05-27-2022 Gynecological examination normal Clint Veras Other [facility] Other Start: 05-27-2022 End: 05-27-[address] CLINT VERAS Facility:[facility] Start: 05-14-2022 End: 05-15-[address] CLINT VERAS Facility:[facility] Start: 05-11-2022 End: 05-12-[address] CLINT VERAS Facility:[facility] Start: 04-23-2022 End: 04-23-[address] SHARMAINE CHAUDHARI . Facility:[facility] Start: 02-22-2022 End: 02-22-2022 ambulatory Leon Kohli Other [facility] Other Start: 02-22-2022 Telephone encounter Leon MAYORGA [facility] Pl[facility] Nurse Start: 01-16-2022 End: 01-17-[address] GAMA [place] Facility:[facility] Start: 01-06-2022 End: 01-07-[address] ELMER ANTOINE Facility:[facility] Start: 12-10-2021 Encounter for genera l adult medical examination without abnormal findings DR CLINT VERAS [facility] Start: 12-08-2021 End: 12-09-[address] CLINT VERAS Facility:[facility] Start: 12-08-2021 End: 12-09-2021 Encounter for general adult medical examination without abnormal findings DR CLINT VERAS Facility:[facility] Start: 12-08-2021 Adult health examination Clint Veras Other [facility] Other Start: 2021 End: [address] GAMA [place] Facility:[facility] Start: 09-30-2021 End: 10-01-[address] CLINT VERAS Facility:[facility] Start: 11-03-2017 End: 05-10-2018 Ambulatory [facility] Procedures Date Procedure Procedure Detail Performing Clinician Start: 05-21-2024 Urnls dip stick/tabl et rgnt non-auto w/o micrscp Nimco LIANG Work Phone: Start: 05-16-2023 Cytp cerv/vag auto t hin layer prep mnl screen Adrian Florence DO Work Phone: Start: 03-19-2020 Screening for malign ant neoplasm of breast Clint Veras Other Start: 10-28-2017 General examination of patient Clint Veras Other Start: 06-13-2017 Hypertension screening Clint Veras Other Depression screening Saige Veras Other H/O: hysterectomy H/O: hysterectomy Nimco LIANG Work Phone: Screening for malign ant neoplasm of breast Clint Veras Other Screening for osteoporosis B enjatony Veras Other Plan of Treatment Date Care Activity Detail Author Start: 05-28-2025 End: 05-28-2025 Patient encounter procedure 05/28/2025 11:00 AM EST Office Visit [facility] [address] [place] [id number] Nimco Trimble PA [address] [place] [address] [facility] Start: 11-06-2024 End: 11-06-2024 Patient encounter procedure 11/06/2024 11:35 AM EDT Office Visit [facility] [address] [place] [id number] Mikal Lemus APRN-SALES PRODUCT MANAGER [address] [place], [place] [id number] [facility] Start: 05-29-2024 End: 05-29-2024 Patient encounter procedure 05/29/2024 10:45 AM EST Office Visit [facility] [address] [place] [phone] Chay Alejandre DPDonell [address] [facility] [address] [place] [address] [facility] Start: 05-21-2024 End: 05-21-2025 DXA Skeletal system Views for bone density DEXA bone density Imaging Routine Osteoporosis, post-menopausal ([facility]/HCC) Expected: 05/21/2024 (Approximate), Expires: 05/21/2025 [facility] Comment on above: Expected: 05/21/2024 (Approximate), Expires: 05/21/2025 Start: 05-21-2024 End: 07-21-2025 MG Breast - bilateral Screening Bilateral screening mammogram Imaging Routine Breast cancer screening by mammogram Expected: 05/21/2024 (Approximate), Expires: 07/21/2025 [facility] Work Phone: Comment on above: Expected: 05/21/2024 (Approximate), Expires: 07/21/2025 Start: 05-21-2024 End: 05-21-2024 Patient encounter procedure 05/21/2024 10:00 AM EST Office Visit [facility] [address] [place] [address] Nimco Trimble PA [address] [place] [address] Arrived [facility] Comment on above: Arrived Comprehensive metabo lic 2000 panel - Serum or Plasma [facility] THIN PREP TIS PAP AN D HR HPV DNA THIN PREP TIS PAP AND HR HPV DNA Pathology and Cytology Routine Well woman exam with routine gynecological exam H/O: hysterectomy Ordered: 05/21/2024 [facility] Comment on above: Ordered: 05/21/2024 [facility] Immunizations Immunization Date Immunization Notes Care Provider Fa zachary 09-03-2020 COVID-19 Vaccine Mejia ssen - Documentation Purposes Only Clint Veras Other [facility] Payers Date Payer Category Payer Private Health Insurance [place] [employer] [id number] 2023 Unknown [id number] 1959 Unknown [id number] 2.16.840.1.629732.3.579. 2.593 1959 Unknown [id number] 2.16.840.1.381303.3.579. 2.593 1959 Unknown [id number] 2.16.840.1.682092.3.579. 2.593 1959 Unknown [id number] 2.16.840.1.578882.3.579. 2.593 1959 Unknown [id number] 2.16.840.1.217918.3.579. 2.593 1959 Unknown [id number] 2.16.840.1.259560.3.579. 2.593 1959 Unknown [id number] 2.16.840.1.485632.3.579. 2.593 1959 Unknown [id number] 2.16.840.1.066692.3.579. 2.593 1959 Unknown [id number] 2.16.840.1.014319.3.579. 2.593 1959 Unknown [id number] 2.16.840.1.720753.3.579. 2.593 1959 Unknown [id number] 2.16.840.1.098170.3.579. 2.593 1959 Unknown [id number] 2.16.840.1.153628.3.579. 2.593 1959 Unknown [id number] 2.16.840.1.600760.3.579. 2.593 1959 Unknown [id number] 2.16.840.1.573344.3.579. 2.1259 1959 Unknown [id number] 2.16.840.1.893820.3.579. 2.1259 1959 Unknown [id number] 2.16.840.1.351266.3.579. 2.1259 1959 Unknown [id number] 2.16.840.1.833364.3.579. 2.1259 1959 Unknown [id number] 2.16.840.1.682164.3.579. 2.1259 1959 Unknown [id number] 2.16.840.1.793959.19 1959 Unknown [id number] Private Health Insurance [facility] [id number] Self-pay Self Pay [id number] Social History Date Type Detail Facility Sex Assigned At [facility] Other Start: 06-23-2022 Tobacco smoking status AZIS Smoker (finding) [facility] Start: 1960 Sex Assigned At Female F [facility] Start: 05-01-2023 Tobacco smoking status AZIS Tobacco smoking consumption unknown [facility] Start: 03-06-2024 End: 05-21-2024 Alcoholic beverage intake Lifetime non-drinker (finding) [facility] Start: 05-01-2023 Tobacco Comment Current smoker frequency unknown [facility] Start: 05-01-2023 Alcohol Comment caffeine: no [facility] Start: 1960 Sex assigned at Not on file [facility] Clinical Notes 02-22-2022 to 05-21-2024 AZUL Zapata - 05/21/2024 10:00 AM AZUL Velazquez - 05/21/2024 10:00 AM EST Note Date & Type Note Facility 05-21-2024 History of Presen t illness Narrative Reason for Appointment: Patient ID: Candelaria Foster is a 63 y.o. female who presents for Gynecologic Exam Patient presents today for Annual Exam. MEDICATIONS Current Outpatient Medications Medication Instructions aspirin 81 mg, Oral, Daily RT atorvastatin (LIPITOR) 10 mg, Oral, Daily lisinopril 5 mg, Oral, Daily ALLERGIES Allergies Allergen Reactions Bupropion Hives, Itching and Rash Other Reaction(s): antidepressants - rash Other Reaction(s): Unknown Cyclobenzaprine Palpitations and Rash Other Reaction(s): Other (See Comments), Other: See Comments Increase in blood pressure and pulse Other Reaction(s): Hypertension, Comment:Rash, Other: See Comments, Unknown Propoxyphene Itching Other Reaction(s): unknown Other Reaction(s): Other (See Comments) Other Reaction(s): Itching Acetaminophen Itching Utsbi-Exmzkmn-Ulftkw Other Other Reaction(s): Unknown Reaction Caffeine Anxiety Other Reaction(s): Unknown Other Reaction(s): Intolerance, Other (See Comments) Way over stimulates the patient Other Reaction(s): Intolerance, Unknown Reaction PROBLEMS Active Ambulatory Problems Diagnosis Date Noted No Active Ambulatory Problems Resolved Ambulatory Problems Diagnosis Date Noted No Resolved Ambulatory Problems Past Medical History: Diagnosis Date Actinic keratosis Acute bilateral low back pain with bilateral sciatica Arrhythmia Arthritis Atherosclerosis of [place] artery of both lower extremities with intermittent claudication (CMS/HCC) Basal cell carcinoma Benign hypertension (CMS/HCC) 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 Cervical spondylosis Chronic bronchitis, mucopurulent (CMS/HCC) Congenital spondylolisthesis COVID-19 with multiple comorbidities Depression (CMS/HCC) Episodic tension-type headache, not intractable Fibromyalgia ELADIO (generalized anxiety disorder) (CMS/HCC) History of carcinoma in situ of vulva History of medical problems History of medical treatment Hyperlipidemia (CMS/HCC) Impaired fasting glucose Iron deficiency anemia, unspecified Lumbar spondylosis Lumbosacral spondylosis with radiculopathy Medial epicondylitis, right Meralgia paresthetica, left Migraine (CMS/HCC) Nicotine dependence, cigarettes, uncomplicated Ocular migraine (CMS/HCC) TARA (obstructive sleep apnea) Paresthesias Pelvic floor tension Peripheral artery disease (CMS/HCC) Polyp of colon Post-menopausal Pulmonary nodule Shoulder strain, right, initial encounter Tenosynovitis, de Quervain Vulvar high-grade squamous intraepithelial lesion (HGSIL) HISTORY PAST MEDICAL HISTORY SOCIAL HISTORY Past Medical History: Diagnosis Date Actinic keratosis Acute bilateral low back pain with bilateral sciatica Arrhythmia Arthritis Atherosclerosis of [place] artery of both lower extremities with intermittent claudication (CMS/HCC) Basal cell carcinoma Benign hypertension (CMS/HCC) 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 Central sensitization Cervical spondylosis Chronic bronchitis, mucopurulent (CMS/HCC) Congenital spondylolisthesis COVID-19 with multiple comorbidities Depression (CMS/HCC) Episodic tension-type headache, not intractable Fibromyalgia ELADIO (generalized anxiety disorder) (CMS/HCC) History of carcinoma in situ of vulva History of medical problems Herniated discs History of medical treatment Silas 3 surgery in October Hyperlipidemia (CMS/HCC) Impaired fasting glucose Iron deficiency anemia, unspecified Lumbar spondylosis Lumbosacral spondylosis with radiculopathy Medial epicondylitis, right Meralgia paresthetica, left Migraine (CMS/HCC) Nicotine dependence, cigarettes, uncomplicated Ocular migraine (CMS/HCC) TARA (obstructive sleep apnea) Paresthesias Pelvic floor tension Peripheral artery disease (CMS/HCC) Polyp of colon villous adenoma Post-menopausal Pulmonary nodule Shoulder strain, right, initial encounter Tenosynovitis, de Quervain Vulvar high-grade squamous intraepithelial lesion (HGSIL) Social History Tobacco Use Smoking status: Unknown Smokeless tobacco: Not on file Tobacco comments: Current smoker frequency unknown Vaping Use Vaping status: Not on file Substance Use Topics Alcohol use: Never Comment: caffeine: no Drug use: Never FAMILY HISTORY Family History Problem Relation Name Age of Onset Skin cancer Mother Osteoporosis Mother Disuse Irritable bowel syndrome Mother Hypertension Mother Heart disease Father Depression Sister Major Clotting disorder Sister No Known Problems Sister Hypertension Brother Heart disease Brother Stroke Maternal Grandmother Heart disease Paternal Grandfather Melanoma Neg Hx SURGICAL HISTORY Past Surgical History: Procedure Laterality Date BASAL CELL CARCINOMA EXCISION COLONOSCOPY 05/2019 diagnost - repeat 2021 EGD 05/2019 OTHER SURGICAL HISTORY 02/2016 [facility] OTHER SURGICAL HISTORY 11/2017 Bx Periclitor, peroneal lesion SKIN BIOPSY SKIN CANCER EXCISION TOTAL ABDOMINAL HYSTERECTOMY W/ BILATERAL SALPINGOOPHORECTOMY 2009 VULVECTOMY 11/03/2017 Partial REVIEW OF SYSTEMS Review of Systems: Review of Systems OBJECTIVE Objective: OBGyn Exam Vitals: Estimated body mass index is 26.43 kg/m as calculated from the following: Height as of 07/16/22: 5' 4 . Weight as of this encounter: 154 lb. BP: 124/70 No LMP recorded (lmp unknown). Patient has had a hysterectomy. ASSESSMENT & PLAN ICD-10-CM 1. Well woman exam with routine gynecological exam Z01.419 THIN PREP TIS PAP AND HR HPV DNA 2. H/O: hysterectomy Z90.710 THIN PREP TIS PAP AND HR HPV DNA 3. Breast cancer screening by mammogram Z12.31 Bilateral screening mammogram Bilateral screening mammogram 4. Osteoporosis, post-menopausal (CMS/HCC) M81.0 DEXA bone density 5. Vaginal odor N89.8 SURESWAB(R) ADVANCED VAGINITIS PLUS, TMA CHLAMYDIA TRACHOMATIS (GENITO/STI) Neisseria gonorrhea DNA probe, direct 6. Urinary tract infection without hematuria, site unspecified N39.0 POCT urinalysis dipstick manually resulted Annual Exam: Patient presents today for an annual exam. Patient states she is doing well and has complaints of some pink tinge when she wipes off and on past 2 days. Feels she does not urinate as much as she should. And when she does urinate she gets a pain all over her chest when she releases urine. Pt also complains of having a vaginal odor/musty and its not the norm. Advised patient we will get a urine from her to rule out a UTI and cx's will be obtained due to the vaginal odor she is having. Pt verbally understood. Pap/cx's were obtained without difficulty. Pt is advised that the cx's take about 2 days to come back and office will call her if anything comes back abnormal. Follow Up: Patient is to return in one year for annual unless needed otherwise. Documented by Patricia Dougherty MA on behalf of: AZUL Zapata Reason for Appointment: Patient ID: Candelaria Foster is a 63 y.o. female who presents for Gynecologic Exam Patient presents today for Annual Exam. MEDICATIONS Current Outpatient Medications Medication Instructions aspirin 81 mg, Oral, Daily RT atorvastatin (LIPITOR) 10 mg, Oral, Daily lisinopril 5 mg, Oral, Daily ALLERGIES Allergies Allergen Reactions Bupropion Hives, Itching and Rash Other Reaction(s): antidepressants - rash Other Reaction(s): Unknown Cyclobenzaprine Palpitations and Rash Other Reaction(s): Other (See Comments), Other: See Comments Increase in blood pressure and pulse Other Reaction(s): Hypertension, Comment:Rash, Other: See Comments, Unknown Propoxyphene Itching Other Reaction(s): unknown Other Reaction(s): Other (See Comments) Other Reaction(s): Itching Acetaminophen Itching Tzemi-Adtbbph-Dggbkq Other Other Reaction(s): Unknown Reaction Caffeine Anxiety Other Reaction(s): Unknown Other Reaction(s): Intolerance, Other (See Comments) Way over stimulates the patient Other Reaction(s): Intolerance, Unknown Reaction PROBLEMS Active Ambulatory Problems Diagnosis Date Noted No Active Ambulatory Problems Resolved Ambulatory Problems Diagnosis Date Noted No Resolved Ambulatory Problems Past Medical History: Diagnosis Date Actinic keratosis Acute bilateral low back pain with bilateral sciatica Arrhythmia Arthritis Atherosclerosis of [place] artery of both lower extremities with intermittent claudication (CMS/HCC) Basal cell carcinoma Benign hypertension (CMS/HCC) 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 Cervical spondylosis Chronic bronchitis, mucopurulent (CMS/HCC) Congenital spondylolisthesis COVID-19 with multiple comorbidities Depression (CMS/HCC) Episodic tension-type headache, not intractable Fibromyalgia ELADIO (generalized anxiety disorder) (CMS/HCC) History of carcinoma in situ of vulva History of medical problems History of medical treatment Hyperlipidemia (CMS/HCC) Impaired fasting glucose Iron deficiency anemia, unspecified Lumbar spondylosis Lumbosacral spondylosis with radiculopathy Medial epicondylitis, right Meralgia paresthetica, left Migraine (CMS/HCC) Nicotine dependence, cigarettes, uncomplicated Ocular migraine (CMS/HCC) TARA (obstructive sleep apnea) Paresthesias Pelvic floor tension Peripheral artery disease (CMS/HCC) Polyp of colon Post-menopausal Pulmonary nodule Shoulder strain, right, initial encounter Tenosynovitis, de Quervain Vulvar high-grade squamous intraepithelial lesion (HGSIL) HISTORY PAST MEDICAL HISTORY SOCIAL HISTORY Past Medical History: Diagnosis Date Actinic keratosis Acute bilateral low back pain with bilateral sciatica Arrhythmia Arthritis Atherosclerosis of [place] artery of both lower extremities with intermittent claudication (CMS/HCC) Basal cell carcinoma Benign hypertension (CMS/HCC) 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 Central sensitization Cervical spondylosis Chronic bronchitis, mucopurulent (CMS/HCC) Congenital spondylolisthesis COVID-19 with multiple comorbidities Depression (CMS/HCC) Episodic tension-type headache, not intractable Fibromyalgia ELADIO (generalized anxiety disorder) (CMS/HCC) History of carcinoma in situ of vulva History of medical problems Herniated discs History of medical treatment Silas 3 surgery in October Hyperlipidemia (CMS/HCC) Impaired fasting glucose Iron deficiency anemia, unspecified Lumbar spondylosis Lumbosacral spondylosis with radiculopathy Medial epicondylitis, right Meralgia paresthetica, left Migraine (CMS/HCC) Nicotine dependence, cigarettes, uncomplicated Ocular migraine (CMS/HCC) TARA (obstructive sleep apnea) Paresthesias Pelvic floor tension Peripheral artery disease (CMS/HCC) Polyp of colon villous adenoma Post-menopausal Pulmonary nodule Shoulder strain, right, initial encounter Tenosynovitis, de Quervain Vulvar high-grade squamous intraepithelial lesion (HGSIL) Social History Tobacco Use Smoking status: Unknown Smokeless tobacco: Not on file Tobacco comments: Current smoker frequency unknown Vaping Use Vaping status: Not on file Substance Use Topics Alcohol use: Never Comment: caffeine: no Drug use: Never FAMILY HISTORY Family History Problem Relation Name Age of Onset Skin cancer Mother Osteoporosis Mother Disuse Irritable bowel syndrome Mother Hypertension Mother Heart disease Father Depression Sister Major Clotting disorder Sister No Known Problems Sister Hypertension Brother Heart disease Brother Stroke Maternal Grandmother Heart disease Paternal Grandfather Melanoma Neg Hx SURGICAL HISTORY Past Surgical History: Procedure Laterality Date BASAL CELL CARCINOMA EXCISION COLONOSCOPY 05/2019 diagnost - repeat 2021 EGD 05/2019 OTHER SURGICAL HISTORY 02/2016 [facility] OTHER SURGICAL HISTORY 11/2017 Bx Periclitor, peroneal lesion SKIN BIOPSY SKIN CANCER EXCISION TOTAL ABDOMINAL HYSTERECTOMY W/ BILATERAL SALPINGOOPHORECTOMY 2009 VULVECTOMY 11/03/2017 Partial REVIEW OF SYSTEMS Review of Systems: Review of Systems OBJECTIVE Objective: OBGyn Exam Vitals: Estimated body mass index is 26.43 kg/m as calculated from the following: Height as of 07/16/22: 5' 4 . Weight as of this encounter: 154 lb. BP: 124/70 No LMP recorded (lmp unknown). Patient has had a hysterectomy. ASSESSMENT & PLAN ICD-10-CM 1. Well woman exam with routine gynecological exam Z01.419 THIN PREP TIS PAP AND HR HPV DNA 2. H/O: hysterectomy Z90.710 THIN PREP TIS PAP AND HR HPV DNA 3. Breast cancer screening by mammogram Z12.31 Bilateral screening mammogram Bilateral screening mammogram 4. Osteoporosis, post-menopausal (CMS/HCC) M81.0 DEXA bone density 5. Vaginal odor N89.8 SURESWAB(R) ADVANCED VAGINITIS PLUS, TMA CHLAMYDIA TRACHOMATIS (GENITO/STI) Neisseria gonorrhea DNA probe, direct 6. Urinary tract infection without hematuria, site unspecified N39.0 POCT urinalysis dipstick manually resulted Annual Exam: Patient presents today for an annual exam. Patient states she is doing well with complaints of urinary symptoms such as inability to completely empty her bladder and some reported urgency. She is contemplating a urology consult for urinary symptoms. Patient reports intermittent foul odor and discharge and reports that she is not sexually active. She was given a sample of Nuvessa for BV symptoms. Pap was obtained without difficulty. Orders Placed This Encounter Procedures Bilateral screening mammogram DEXA bone density CHLAMYDIA TRACHOMATIS (GENITO/STI) Neisseria gonorrhea DNA probe, direct POCT urinalysis dipstick manually resulted Follow Up: Patient is to return in one year for annual unless needed otherwise. Documented by AZUL Zapata on behalf of: AZUL Zapata documented in this encounter [facility] 01-21-2023 Evaluation note Encounter Date Diagnosis Assessment Notes Dec, Cigarette nicotine dependence without complication (ICD-10 - F17.210) LDCT lungs w/o suspicious nodules - 12/2022Dec, Mucopurulent chronic bronchitis (ICD-10 - J41.1) [facility] Other 06-20-2023 Evaluation note* Encounter Date Diagnosis Assessment Notes Treatment Notes Treatment Clinical Notes Nov, Wellness examination (ICD-10 - Z00.00) [...] on diet and exercise with continued statin therapy.Discussed the beneficial effects of lowering cholesterol in reducing the risk for cerebrovascular and cardiovascular disease. Nov, Primary hypertension (ICD-10 - I10) This patient is instructed to consume a healthy, low-fat, low-salt diet. They are also encouraged to continue exercise to achieve/maintain a normal BMI. Nov, TARA (obstructive sle ep apnea) (ICD-10 - G47.33) This patient is aware of the benefits associated with TARA: With continued use, the patient reduces the risk for OK, CVA, HTN, cardiac dysrhythmias and sudden cardiac deaths.The patient is also aware of the association between TARA and morning headaches, daytime somnolence, fatigue and obesity, which also has been improved with continued use.The patient is compliant with treatment, wearing the equipment every night for greater than 4 hours.The patient is instructed to continue use of the CPAP for TARA treatment. Nov, IFG (impaired fastin g glucose) (ICD-10 - R73.01) This patient is [...] exam and Foot exam Nov, Pulmonary nodule (IC D-10 - R91.1) 24 month post PET/CT was due 08/2022 CT scheduled prior to Pulmonary visit Nov, Adenomatous polyp of descending colon (ICD-10 - D12.4) Repeat colonoscopy due 2026 No changes in appetitie or bowel habits No bleeding Plan repeat scope in 5years Nov, Atherosclerosis of [place] artery of both lower extremities with intermittent claudication (ICD-10 - I70.213) Inspect feet daily, walk daily. Continue ASA and Statin therapy [facility] Other 01-22-2023 History general Narrative - Reported* Type Description Date Medical History hypertension Medical History hyperlipidemia Medical History fibromyalgia Surgical History hysterectomy Surgical History colonoscopy 07/18/22 [facility] Other 01-22-2023 History general Narrative - Reported* Type Description Date Medical History hypertension Medical History hyperlipidemia Medical History fibromyalgia Surgical History hysterectomy Surgical History colonoscopy 07/18/22 Hospitalization History see surgical history [facility] Other 12-13-2022 Evaluation note* Encounter Date Diagnosis Assessment Notes Treatment Notes Treatment Clinical Notes May, Cervical pain (ICD-10 - M54.2) [...] (ICD-10 - G89.29) May, Other Above note writ ten by Rashaad Alejandre MA, Chess Instructor. Edited and approved by Dr. David Lemus [...] negative findings were considered in medical decision-making. [facility] Other 08-29-2022 Evaluation note* Encounter Date Diagnosis Assessment Notes Treatment Notes Treatment Clinical Notes Jan, Screening for colon cancer (ICD-10 - Z12.11) [facility] Other Evaluation noteNo InformationNort Written Other Evaluation note* Diagnosis Onset Date Resolution Status Chronic bronchitis acute ELADIO (generalized anxiety disorder) acute Hypertension acute Nicotine addiction acute TARA (obstructive sleep apnea) acute Peripheral artery disease ac birdie Wellness examination noneact jason [facility] Work Phone: Evaluation note* Diagnosis Well woman exam with routine gynecological exam Routine gynecological examination H/O: hysterectomy Acquired absence of both cervix and uterus Breast cancer screening by mammogram Osteoporosis, post-menopausal ([facility]) Senile osteoporosis Urinary tract infection without hematuria, site unspecified documented in this encounter [facility] N[facility] - Reported* Type Description Date Medical History hypertension Medical History hyperlipidemia Medical History fibromyalgia Surgical History hysterectomy [facility] Other Summary Purpose Family History No Family [...] section and content) DATE CREATED AUTHOR 12/14/2017 [facility] DATE CREATED AUTHOR AUTHOR'S ORGANIZ ATION 06/23/2022 [facility] DATE CREATED AUTHOR AUTHOR'S ORGANIZ ATION 09/21/2022 [facility] DATE CREATED AUTHOR AUTHOR'S ORGANIZ ATION 05/23/2024 [facility] EPIC REASON FOR VISIT (unrecogniz ed section and content) Reason Comments Gynecologic Exam Care Teams (unrecognized sec tion and content) Team Status: Active Member Role Status Dates Clint Veras DO Primary Care Provider Active Team Status: Inactive Member Role Status Dates Clint Veras DO Primary Care Provide r, Attending Provider Active Start: December 16, 2023 End: December 16, 2023 Notereader Relationship Specialty Start Date End Date Clint Veras MD [address] [place] [id number] PCP - General Internal Medicine 05/16/23 Notereader Relationship Specialty Start Date End Date Clint Veras MD [address] [place] [id number] PCP - General Internal Medicine 05/16/23 Goals (unrecognized section and content) Goals may [...] BE BASED ON THE PRIMARY CLINICAL RECORDS. [facility] [employer] [facility]. provides no warranty or guarantee of the accuracy or completeness of information in this document.
[2024-05-26 14:28] LABS: Internal Control Within Normal Limits; Strep A Antigen Screen Negative
--- NOTE | 2024-05-26 14:59 | ED_ITS ---
HPI - URI/Sore Throat General Chief Complaint: Upper Respiratory Infection Stated Complaint: SORE THROAT, COUGH Time Seen by Provider: 05/26/24 14:08 Source: patient Limitations: no limitations History of Present Illness HPI Narrative: The patient is coming to the ER with this sore throat that started yesterday , she also had runny nose and cough and she had a history of smoking cigarettes less than 1 pack of cigarette daily The patient denies any chest pain or difficulty breathing and she mentioned that one of the contacts yesterday had a strep throat and that why she is coming here to the ER to be evaluated Related Data Home Medications ?Medication ?Instructions ?Recorded ?Confirmed aspirin 81 mg tablet,delayed 81 mg PO DAILY 01/17/24 01/17/24 release (Adult Low Dose Aspirin) atorvastatin 20 mg tablet 20 mg PO DAILY 01/17/24 01/17/24 lisinopril 5 mg tablet 5 mg PO DAILY 01/17/24 01/17/24 Previous Rx's ?Medication ?Instructions ?Recorded doxycycline hyclate 100 mg tablet 100 mg PO BID 7 days #14 tabs 02/13/24 Allergies Allergy/AdvReac Type Severity Reaction Status Date / Time acetaminophen (From Allergy Severe Rash Verified 01/17/24 09:08 Darvocet-N) bupropion (From Wellbutrin) Allergy Severe Rash Verified 01/17/24 09:08 cyclobenzaprine (From Allergy Severe Palpitation Verified 01/17/24 09:08 Flexeril) s propoxyphene (From Allergy Severe Rash Verified 01/17/24 09:08 Darvocet-N) Review of Systems ROS Status of ROS 10 or more systems reviewed and unremark able except as noted in history and below [facility] Medical History (Updated 05/26/24 @ 15:00 by Mackenzie Fay MD) COPD (chronic obstructive pulmonary disease) ?J44.9 - Chronic obstructive pulmonary disease, unspecified (ICD-10) Hypertension ?I10 - Essential (primary) hypertension (ICD-10) Social History Little interest or pleasure in doing things: not at all Feeling down, depressed, or hopeless: not at all Exam Narrative Exam Narrative: Nurses notes and vital signs reviewed and patient is not hypoxic. General: Well-appearing and in no apparent distress. Skin: Warm, dry, no pallor noted. No rash. Head: Normocephalic, atraumatic. Neck: Supple, non-tender. Eye: Pupils are equal, round and EOMI. No scleral icterus. Ears, Nose, Mouth, and Throat: TM are clear, no nasal mucosal hypertrophy. O ral mucosa is moist, mild erythema noted bilaterally with no exudate, uvula is mid-line Cardiovascular: Regular Rate and Rhythm without murmur, gallop or rub. Respiratory: No accessory muscle use or respiratory distress. Lungs are clear to auscultation, no wheezing, rales or rhonchi Chest Wall: no tenderness Back: No midline thoracic or lumbar vertebral tenderness. No CVA tenderness Musculoskeletal: normal ROM, no calf or popliteal tenderness, no lower extremity edema/swelling GI: Abdomen is soft, non-distended. Normal bowel sounds. No masses appreciated. No tenderness to palpation. No rebound, guarding, or rigidity noted. Neurological: A&O x4. No cranial nerve dysfunction observed. No truncal ataxia. Moves all extremities. Sensation intact. Psychiatric: Cooperative and interactive. Normal mood and affect. Constitutional Vital Signs, click to edit/add: Last Vital Signs Temp 98.3 F 05/26/24 14:10 Pulse 93 H 05/26/24 14:10 Resp 18 05/26/24 14:10 BP 143/76 H 05/26/24 14:10 Pulse Ox 96 05/26/24 14:10 O2 Del Method Room Air 05/26/24 14:10 Course Vital Signs Vital signs: Vital Signs Temperature 98.3 F 05/26/24 14:10 Pulse Rate 93 H 05/26/24 14:10 Respiratory Rate 18 05/26/24 14:10 Blood Pressure 143/76 H 05/26/24 14:10 Pulse Oximetry 96 05/26/24 14:10 Oxygen Delivery Method Room Air 05/26/24 14:10 Temperature 98.3 F 05/26/24 14:10 Pulse Rate 93 H 05/26/24 14:10 Respiratory Rate 18 05/26/24 14:10 Blood Pressure 143/76 H 05/26/24 14:10 Pulse Oximetry 96 05/26/24 14:10 Oxygen Delivery Method Room Air 05/26/24 14:10 MDM - URI/Sore Throat MDM Narrative Medical decision making narrative: The patient strep test is negative and her presentation is mostly secondary to viral illness The patient is to follow up with primary care physician in next 2-3 days or to return to the emergency department should any of the signs or symptoms worsen or new symptoms develop. The patient agrees with the following Diagnosis and Treatment plan and the patient will be discharged home. Lab Data Labs: Lab Results 05/26/24 Range/Units 14:12 Streptococcus Screen Negative Discharge Plan Discharge Chief Complaint: Upper Respiratory Infection Clinical Impression: Pharyngitis, URTI (acute upper respiratory infection) Patient Disposition: Home, Self-Care Time of Disposition Decision: 15:00 Condition: Good Prescriptions / Home Meds: No Action doxycycline hyclate 100 mg tablet 100 mg PO BID 7 Days Qty: 14 0RF atorvastatin 20 mg tablet 20 mg PO DAILY lisinopril 5 mg tablet 5 mg PO DAILY aspirin [Adult Low Dose Aspirin] 81 mg tablet,delayed release (DR/EC) 81 mg PO DAILY Print Language: Nigerien Instructions: Pharyngitis (ED), Upper Respiratory Infection (DC) Referrals: Clint Veras DO [Primary Care Provider] - 1 week Discharge Date/Time: 05/26/24 15:05
== END 2024-05-26 15:05 | disposition home or self-care (01) ==
PROVIDERS: Emergency Provider Emergency Medicine; PCP Internal Medicine
DX: J02.9 Acute pharyngitis, unspecified (principal); J06.9 Acute upper respiratory infection, unspecified; F17.210 Nicotine dependence, cigarettes, uncomplicated
CPT/HCPCS: 87070; 87880; 99283

== ENCOUNTER 2024-05-27 22:32 | Emergency (ER) | payer OTHER, SELFPAY ==
--- OUTSIDE RECORDS SUMMARY | 2024-05-27 22:41 | XMS_ITS | CCD ---
Author Organization [facility] Care Team Providers Care Nurse Anesthetist Name Role Phone ANGELINATAMIA Unavailable Unavailable , [...] Translations: [BUPROPION HCL] Drug Allergy 03-05-20 16 [facility] Repository (6 sources) caffeine; Translations: [CAFFEINE] Drug Allergy 03-05-20 16 [facility] Repository (1 source) cyclobenzaprine; Translations: [CYCLOBENZAPRINE HCL] [facility] PROPOXYPHENE N-ACETAMINOPHEN; Translations: [PROPOXYPHENE N-ACETAMINOPHEN] Propensity to adverse reactions to drug (disorder) 03-05-20 16 [facility] Repository (8 sources) cyclobenzaprine; Translations: [Flexeril] Drug Allergy Unknown [facility] Repository (2 sources) buPROPion Drug Allergy 01-01-20 16 WELLBUTRIN [facility] Repository (1 source) Darvocet-N 100 Drug allergy (disorder) 01-01-20 16 [facility] Repository (5 sources) buPROPion Drug Allergy 06-27-19 05 Itching, Hives, Rash [facility] (5 sources) cyclobenzaprine Drug Allergy 06-12-20 17 Rash, Palpitations [facility] (1 source) Propoxyphene Drug Allergy 06-27-19 18 DARVOCET [facility] Other (1 source) Allergies Reconciled Propensity to adverse reactions Unknown [facility] Other (1 source) patient allergy list reviewed by nurse or physicia Propensity to adverse reactions 01-23-20 Comment:Done [facility] Other (1 source) Flexeril *MUSCULOSKELETAL THERAPY AGENTS* Propensity to adverse reactions Comment:Rash [facility] Other (1 source) Darvocet A500 *ANALGESICS - OPIOID* Propensity to adverse reactions Unknown [facility] Other (4 sources) Acetaminophen Drug Allergy 11-07-19 24 Itching [facility] (4 sources) Propoxyphene Drug Allergy 06-10-20 09 Itching [facility] (1 source) Darvocet A500 *ANALGESICS - OP Allergy to substance 12-16-19 Unknown Reaction [facility] (1 source) stimulants Propensity to adverse reactions 06-18-20 19 Unknown Reaction [facility] (1 source) sugar Propensity to adverse reactions 06-18-20 19 Unknown Reaction [facility] (3 sources) Nzdnc-Yzvkyuf-Mcgm ch Drug Intolerance 06-18-20 19 Other [facility] [...] Fluticasone Propionate (Flonase Allergy Relief) 50 mcg/actuation [facility],Suspension Discontinued 2 SPRAY INTRANASAL Daily June 18, 2019 1:00am June 23, 2022 8:20am oxymetazoline hydrochloride 0.5 mg/ml nasal spray (1 source) Start: 06-18-2019 End: 06-18-2019 Oxymetazoline (Afrin (Oxymetazoline)) 0.05 % [facility],Non-Aerosol Discontinued 2 SPRAY INTRANASAL Q12H June 18, [...] Episodic Administrative/social admission (1 source) 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; Translations: [Person consulting for [...] and due to atherosclerosis; Translations: [Atherosclerosis of [place] arteries of extremities with intermittent claudication, bilateral [...] UA Negative Negative - 4(70) +++ mg/dL [facility] Blood, UA Positive Negative - 50 Zachary/mcL [facility] Comment on above: trace Clarity, UA Clear [facility] Color, UA Yellow [facility] Glucose, UA Negative Negative - 1999(110) ++++ mg/dL [facility] Interpretation and review of laboratory results Abnormal [facility] Ketones, UA Negative Negative - 160(16) ++++ mg/dL [facility] Leukocytes, UA Negative Negative - 500+++ Phu/mcL [facility] Nitrite, UA Negative Negative - Positive [facility] pH, UA 5.5 5 - 9 [facility] Protein, UA Negative Negative - 2000(20) ++++ mg/dL [facility] Spec Grav, UA 1.015 1 - 1.03 [facility] Urobilinogen, UA 0.2 0.2 - 12 mg/dL [facility] Cytology Cervical or vaginal smear or scraping studyon 05-16-2023 [facility] HERPES SIMPLEX VIRUS (HSV) C ULTUREon 07-22-2022 HSV Culture/Type Comment Abnormal [facility] Comment on above: Result Comment: 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 Typing was confirmed by monoclonal antibody microscopic immunofluorescence. Performed By: #### H SVCUL #### [facility] [address] [place] [address] Dr. Jessica Sainz Covid-19 PCR ([facility])on SARS-CoV-2 (COVID-19) RNA JANICE+probe Ql (Unsp spec) Not detected Normal NOT DETECTED [facility] Comment on above: Result Comment: This test is not yet approved or cleared by the [place] FDA. When there are no FDA-approved or cleared tests available, and other criteria are met, FDA can make tests available under an emergency access mechanism called an Emergency Use Authorization (EUA). The EUA for this test is supported by the [place] of Health and Human Service's (HHS's) declaration [...] consistent with SARS-CoV-2. Performed By: #### C [facility] #### [facility] [address] [place] [address] Dr. Jessica Sainz XR CSPINE 2_3 VIEWSon [...] ELMER ANTOINE Date: 2022-05-16 11:55 Normal [facility] XR DEXA BONE DENSITYon 05-12 XR [...] GAMA MI Date: 2022-05-12 06:51 Normal [facility] MG MAMM SCREEN 3D ARNOLDO CADon 05-11-2022 MG MAMM SCREEN 3D ARNOLDO CAD Patient: CANDELARIA FOSTER Exam Date: 05/11/2022 : 1960 Gender:F Ordering : DR SHARMAINE CHAUDHARI . Admission #: [id number] Family : Order #: [id number] CLICK HERE TO VIEW EXAM RADIOLOGY REPORT [...] Treatments None Family Cancers None LOCATION: [facility] BREAST COMPOSITION: Scattered areas fibroglandular density. [...] Antoine MD on 05/12/2022 at 08:59 Normal [facility] XR CHEST 2 Von 05-11-2022 XR [...] by: GIN DYSON Date: 2022-05-11 19:50 Normal [facility] XR HIP LT 2 3V W [...] by: ZIGGY YADAV Date: 2022-05-11 18:01 Normal [facility] PAP ACOG PANEL 2: 30 to 65on 04-30-2022 . . Normal [facility] Comment on above: Result Comment: Perf ormed at: WB Performed By: #### [id number] #### [facility] [address] [address] [address] Jessica Sainz Age Gdln ACOG Testing 30-65 Normal [facility] Comment on above: Performed By: #### [id number] #### [facility] [address] [place] [address] Dr. Jessica Sainz DIAGNOSIS: Comment Normal [facility] Comment on above: Result Comment: NEGA TIVE FOR INTRAEPITHELIAL LESION OR MALIGNANCY. CELLULAR CHANGES ASSOCIATED WITH ATROPHY ARE PRESENT. Performed at: WB Performed By: #### [id number] #### [facility] [address] [place] [address] Dr. Jessica Sainz HPV Aptima Negative Normal Negative [facility] Comment on above: Result Comment: This nucleic acid amplification test detects fourteen high-risk HPV types (16,18,31,33,35,39,45,51,52,56,58,59,66,68) without differentiation. Performed at: =G Performed By: #### [id number] #### [facility] [address] [place] [address] Dr. Jessica Sainz HPV Genotype Reflex Comment Normal [facility] Comment on above: Result Comment: Crit eria not met, HPV Genotype not performed. Performed at: WB Performed By: #### [id number] #### [facility] [address] [place] [address] Dr. Jessica Sainz Methodology: Comment Normal [facility] Comment on above: Result Comment: This liquid based ThinPrep(R) pap test was screened with the use of an image guided system. Performed at: WB Performed By: #### [id number] #### [facility] [address] [place] [address] Dr. Jessica Sainz Note: Comment Normal [facility] Comment on above: Result Comment: The Pap smear is a screening test designed to aid in the detection of premalignant and malignant conditions of the uterine cervix. It is not a diagnostic procedure and should not be used as the sole means of detecting cervical cancer. Both false-positive and false-negative reports do occur. . Performed at: WB Performed By: #### [id number] #### [facility] [address] [address] [address] Jessica Sainz Performed by: Comment Normal [facility] Comment on above: Result Comment: Yi Osborn, Tobacco Dipper (ASCP) Performed at: WB Performed By: #### [id number] #### [facility] [address] [place] [address] Dr. Jessica Sainz Specimen adequacy: Comment Normal [facility] Comment on above: Result Comment: Sati sfactory for evaluation. Endocervical component may not be distinguished in cases of atrophy. Performed at: WB Performed By: #### [id number] #### [facility] [address] [place] [address] CHEST WO CONon [...] GAMA MI Date: 2022-01-17 09:30 Normal [facility] XR CHEST COMP MIN 4Von 01-07 [...] ELMER ANTOINE Date: 2022-01-07 07:18 Normal [facility] CBC AUTO DIFFon 12-08-2021 BASO # 0.1 103/ul Normal 0.0-0.1 [facility] Comment on above: Performed By: #### C CBFS #### [facility] [address] [place] [address] Dr. Jessica Sainz Basophils/100 WBC (Bld) 1.7 % Normal 0.2-2.0 [facility] Comment on above: Performed By: #### C CBFS #### [facility] [address] [address] [address] Jessica Sainz EO # 0.5 103/ul Normal 0.0-0.7 [facility] Comment on above: Performed By: #### C CBFS #### [facility] [address] [address] [address] Jessica Sainz Eosinophils/100 WBC (Bld) 7.9 % Critically high 0.9-7.0 [facility] Comment on above: Performed By: #### C CBFS #### [facility] [address] [place] [address] Dr. Jessica Sainz Erythrocyte distribution width (RBC) [Ratio] 13.9 % Normal 11.0-15.0 [facility] Comment on above: Performed By: #### C CBFS #### [facility] [address] [place] [address] Dr. Jessica Sainz Hematocrit (Bld) [Volume fraction] 41.7 % Normal 36.0-48.0 [facility] Comment on above: Performed By: #### C CBFS #### [facility] [address] [place] [address] Dr. Jessica Sainz Hemoglobin (Bld) [Mass/Vol] 13.0 g/dL Normal 12.0-16.0 [facility] Comment on above: Performed By: #### C CBFS #### [facility] [address] [place] [address] Dr. Jessica Sainz IG # 0.01 10e3/ul Normal 0.00-0.03 [facility] Comment on above: Performed By: #### C CBFS #### [facility] [address] [place] [address] Dr. Jessica Sainz IG % 0.2 % Normal 0.0-0.5 [facility] Comment on above: Performed By: #### C CBFS #### [facility] [address] [place] [address] Dr. Jessica Sainz LYMPH # 1.5 103/ul Normal 1.2-3.8 [facility] Comment on above: Performed By: #### C CBFS #### [facility] [address] [place] [address] Dr. Jessica Sainz Lymphocytes/100 WBC (Bld) 25.4 % Normal 20.5-60.0 [facility] Comment on above: Performed By: #### C CBFS #### [facility] [address] [place] [address] Dr. Jessica Sainz MANUAL DIFF REQ NO Normal [facility] Comment on above: Performed By: #### C CBFS #### [facility] [address] [place] [address] Dr. Jessica Sainz MCH (RBC) [Entitic mass] 27.4 pg Normal 26.7-34.0 [facility] Comment on above: Performed By: #### C CBFS #### [facility] [address] [place] [address] Dr. Jessica Sainz MCHC (RBC) [Mass/Vol] 31.2 g/dL Normal 29.9-35.2 [facility] Comment on above: Performed By: #### C CBFS #### [facility] [address] [place] [address] Dr. Jessica Sainz MCV (RBC) [Entitic vol] 87.8 fL Normal 81.0-99.0 [facility] Comment on above: Performed By: #### C CBFS #### [facility] [address] [place] [address] Dr. Jessica Sainz MONO # 0.5 103/ul Normal 0.3-0.8 [facility] Comment on above: Performed By: #### C CBFS #### [facility] [address] [place] [address] Dr. Jessica Sainz Monocytes/100 WBC (Bld) 8.1 % Normal 1.7-12.0 [facility] Comment on above: Performed By: #### C CBFS #### [facility] [address] [place] [address] Dr. Jessica Sainz NEUT # 3.3 103/ul Normal 1.4-6.5 [facility] Comment on above: Performed By: #### C CBFS #### [facility] [address] [place] [address] Dr. Jessica Sainz Neutrophils/100 WBC (Bld) 56.7 % Normal 43.0-75.0 [facility] Comment on above: Performed By: #### C CBFS #### [facility] [address] [place] [address] Dr. Jessica Sainz Platelet mean volume (Bld) [Entitic vol] 9.7 fL Normal 9.5-13.5 [facility] Comment on above: Performed By: #### C CBFS #### [facility] [address] [place] [address] Dr. Jessica Sainz PLT 266 103/ul Normal 150-450 [facility] Comment on above: Performed By: #### C CBFS #### [facility] [address] [place] [address] Dr. Jessica Sainz RBC 4.75 106/ul Normal 4.20-5.40 [facility] Comment on above: Performed By: #### C CBFS #### [facility] [address] [place] [address] Dr. Jessica Sainz WBC 5.8 103/ul Normal 4.0-11.0 [facility] Comment on above: Performed By: #### C CBFS #### [facility] [address] [place] [address] Dr. Jessica Sainz LIPID PROFILEon 12-08-2021 CHOL-HDL RATIO NORM SEE BELOW Normal [facility] Comment on above: Result Comment: 3.3 - 4.4 LOW RISK 4.4 - 7.1 AVERAGE RISK 7.1 - 11.0 MODERATE RISK >11.0 HIGH RISK Performed By: #### H SVCUL #### [facility] [address] [place] [address] Dr. Jessica Sainz Cholesterol [Mass/Vol] 208 mg/dL Critically high <=200 [facility] Comment on above: Performed By: #### H SVCUL #### [facility] [address] [place] [address] Dr. Jessica Sainz Cholesterol in HDL [Mass/Vol] 63 mg/dL Critically high 40-60 [facility] Comment on above: Performed By: #### H SVCUL #### [facility] [address] [place] [address] Dr. Jessica Sainz Cholesterol in LDL [Mass/Vol] 122.8 mg/dL Normal [facility] Comment on above: Performed By: #### H SVCUL #### [facility] [address] [address] [address] Jessica Sainz Cholesterol.total /Cholesterol in HDL [Mass ratio] 3.3 {ratio} Normal [facility] Comment on above: Performed By: #### H SVCUL #### [facility] [address] [address] [address] Jessica Sainz HDL NORMAL > or = 60 mg/dl - LO W CARDIOVASCULAR RISK <40 mg/dl - HIGH CARDIOVASCULAR RISK Normal [facility] Comment on above: Performed By: #### H SVCUL #### [facility] [address] [address] [address] Jessica Sainz LDL CALC NORMAL SEE BELOW Normal [facility] Comment on above: Result Comment: <100 mg/dl OPTIMAL 100 - 129 mg/dl NEAR OR ABOVE OPTIMAL 130 - 159 mg/dl BORDERLINE HIGH 160 - 189 mg/dl HIGH >190 mg/dl VERY HIGH Performed By: #### H SVCUL #### [facility] [address] [place] [address] Dr. Jessica Sainz Triglyceride [Mass/Vol] 111 mg/dL Normal <=150 [facility] Comment on above: Performed By: #### H SVCUL #### [facility] [address] [place] [address] Dr. Jessica Sainz VLDL CALC 22.2 mg/dL Normal [facility] Comment on above: Performed By: #### H SVCUL #### [facility] [address] [place] [address] Dr. Jessica Sainz PROF 14(COMP METB)on 022 Albumin [Mass/Vol] 4.0 g/dL Normal 3.4-5.0 [facility] Comment on above: Performed By: #### H SVCUL #### [facility] [address] [place] [address] Dr. Jessica Sainz Albumin/Globulin [Mass ratio] 1.0 {ratio} Normal [facility] Comment on above: Performed By: #### H SVCUL #### [facility] [address] [address] [address] Jessica Sainz ALP [Catalytic activity/Vol] 111 U/L Normal 46-116 [facility] Comment on above: Performed By: #### H SVCUL #### [facility] [address] [address] [address] Jessica Sainz ALT [Catalytic activity/Vol] 21 U/L Normal 14-59 [facility] Comment on above: Performed By: #### H SVCUL #### [facility] [address] [address] [address] Jessica Sainz Anion gap [Moles/Vol] 11.5 mmol/L Normal [facility] Comment on above: Performed By: #### H SVCUL #### [facility] [address] [address] [address] Jessica Sainz AST [Catalytic activity/Vol] 16 U/L Normal 15-37 [facility] Comment on above: Performed By: #### H SVCUL #### [facility] [address] [address] [address] Jessica Sainz Bilirubin [Mass/Vol] 0.4 mg/dL Normal 0.2-1.0 [facility] Comment on above: Performed By: #### H SVCUL #### [facility] [address] [address] [address] Jessica Sainz Calcium [Mass/Vol] 9.2 mg/dL Normal 8.5-10.1 [facility] Comment on above: Performed By: #### H SVCUL #### [facility] [address] [address] [address] Jessica Sainz Chloride [Moles/Vol] 102 mmol/L Normal 98-107 [facility] Comment on above: Performed By: #### H SVCUL #### [facility] [address] [address] [address] Jessica Sainz CO2 [Moles/Vol] 29.8 mmol/L Normal 21.0-32.0 [facility] Comment on above: Performed By: #### H SVCUL #### [facility] [address] [address] [address] Jessica Sainz Creatinine [Mass/Vol] 0.62 mg/dL Normal 0.55-1.02 [facility] Comment on above: Performed By: #### H SVCUL #### [facility] [address] [address] [address] Jessica Sainz EGFR-AF SAUDI ARABIAN >60 Normal >=60 [facility] Comment on above: Performed By: #### H SVCUL #### [facility] [address] [address] [address] Jessica Sainz EGFR-NON AF SAUDI ARABIAN >60 Normal >=60 [facility] Comment on above: Performed By: #### H SVCUL #### [facility] [address] [address] [address] Jessica Sainz Globulin (S) [Mass/Vol] 4.2 g/dL Normal [facility] Comment on above: Performed By: #### H SVCUL #### [facility] [address] [address] [address] Jessica Sainz Glucose [Mass/Vol] 92 mg/dL Normal 74-106 [facility] Comment on above: Performed By: #### H SVCUL #### [facility] [address] [address] [address] Jessica Sainz Potassium [Moles/Vol] 4.3 mmol/L Normal 3.5-5.1 [facility] Comment on above: Performed By: #### H SVCUL #### [facility] [address] [address] [address] Jessica Sainz Protein [Mass/Vol] 8.2 g/dL Normal 6.4-8.2 [facility] Comment on above: Performed By: #### H SVCUL #### [facility] [address] [address] [address] Jessica Sainz Sodium [Moles/Vol] 139 mmol/L Normal 136-145 [facility] Comment on above: Performed By: #### H SVCUL #### [facility] [address] [address] [address] Jessica Sainz Urea nitrogen [Mass/Vol] 16.0 mg/dL Normal 7.0-18.0 [facility] Comment on above: Performed By: #### H SVCUL #### [facility] [address] [address] [address] Jessica Sainz Urea nitrogen/Creatini ne [Mass ratio] 25.8 mg/mg Normal [facility] Comment on above: Performed By: #### H SVCUL #### [facility] [address] [place] [address] Dr. Jessica Sainz TSHon 12-08-2021 TSH 1.419 uIU/mL Normal 0.358-3.740 [facility] Comment on above: Performed By: #### H SVCUL #### [facility] [address] [address] [address] Jessica Sainz VITAMIN D 25 OHon 12-08-2021 VIT D 25-OH 39.3 ng/mL Normal [facility] Comment on above: Performed By: #### V ITAD #### [facility] [address] [place] [address] Dr. Jessica Sainz VIT D RANGES SEE BELOW [facility] Comment on above: Result Comment: <20 ng/mL Vit D deficient 20 - <30 ng/mL Vit D insufficient 30 - 100 ng/mL Vit D sufficient >100 ng/mL Potential Toxicity Performed By: #### V ITAD #### [facility] [address] [place] [address] Dr. Jessica Sainz ACID FAST SMEAR AND CXon Acid Fast Culture Negative Normal [facility] Comment on above: Result Comment: No a nolan fast bacilli isolated after 6 weeks. Performed By: #### H SVCUL #### [facility] [address] [place] [address] Dr. Jessica Sainz Acid Fast Smear Negative Normal [facility] Comment on above: Performed By: #### H SVCUL #### [facility] [address] [place] [address] Dr. Jessica Sainz AF[employer] Specimen Processing Direct Inoculation [facility] Comment on above: Performed By: #### H SVCUL #### [facility] [address] [place] [address] Dr. Jessica Sainz FUNGAL CULTUREon 11-10-2021 Fungus (Mycology) Culture Final report Normal [facility] Comment on above: Performed By: #### C CBFS #### [facility] [address] [place] [address] Dr. Jessica Sainz Fungus Stain Final report Normal [facility] Comment on above: Performed By: #### C CBFS #### [facility] [address] [place] [address] Dr. Jessica Sainz Result 1 Comment Normal [facility] Comment on above: Result Comment: JOJO/ Calcofluor preparation: no fungus observed. Performed By: #### C CBFS #### [facility] [address] [place] [address] Dr. Jessica Sainz Result Comment: No y east or mold isolated after 4 weeks. BODY FLUID CULTUREon Anaerobic Culture, Extended Incubation Final report [facility] Comment on above: Performed By: #### H SVCUL #### [facility] [address] [place] [address] Dr. Jessica Sainz Body Fluid Culture, Sterile Final report Normal [facility] Comment on above: Performed By: #### H SVCUL #### [facility] [address] [place] [address] Dr. Jessica Sainz Result 1 Comment Normal [facility] Comment on above: Result Comment: No g rowth in 56 - 72 hours. Performed By: #### H SVCUL #### [facility] [address] [place] [address] Dr. Jessica Sainz Result Comment: No a naerobes recovered. No anaerobic growth after 14 days LAB DAVID MISC TESTon 022 Referral Lab Comment Normal [facility] Comment on above: Result Comment: [facility] Performed By: #### L CMISC #### [facility] [address] [place] [address] Dr. Jessica Sainz Referral Test Code or Mnemonic Comment Normal [facility] Comment on above: Result Comment: 2002 Performed By: #### L CMISC #### [facility] [address] [place] [address] Dr. Jessica Sainz Referral Test Name Comment Normal [facility] Comment on above: Result Comment: RHEU MATOID FACTOR Performed By: #### L CMISC #### [facility] [address] [place] [address] Dr. Jessica Sainz Referral Test Results Comment Normal [facility] Comment on above: Result Comment: Refe rence lab report sent via fax. Performed By: #### L CMISC #### [facility] [address] [place] [address] Dr. Jessica Sainz PH, BODY FLUIDon 10-15-2021 pH, Body Fluid 7.6 Normal Not Estab. [facility] Comment on above: Result Comment: The reference interval(s) and other method performance specifications have not been established for this body fluid. The test result must be integrated into the clinical context for interpretation. Performed By: #### B DYFLPH #### [facility] [address] [place] [address] Dr. Jessica Sainz AMYLASE, BODY FLUIDon 2021 Amylase [Catalytic activity/Vol] 40 U/L Normal [facility] Comment on above: Result Comment: ____ : BODY FLUID TYPE : AMYLASE : : : : : Lymph : 50 - 83 : : : : : Peritoneal : : : Fluid : 88 - 109 : : : : : Saliva : : : (Mixed Glands) : [id number] - [id number] : : : : . Gladys W, Cher V. Reference Intervals for Adults and Children 2008. Ninth Edition (V9.1) [employer], [facility]; [place]: December 2008. The method performance specifications have not been established for this test in body fluid. The test result should be integrated into the clinical context for interpretation. Performed By: #### H SVCUL #### [facility] [address] [place] [address] Dr. Jessica Sainz CELL COUNT BODY FLUIDon 09-25 Clarity, Serous Clear Normal Clear [facility] Comment on above: Performed By: #### C CBFS #### [facility] [address] [place] [address] Dr. Jessica Sainz Color, Serous Straw Normal [facility] Comment on above: Result Comment: [place] rless to Pale Yellow/Straw Performed By: #### C CBFS #### [facility] [address] [place] [address] Dr. Jessica Sainz Comments: Normal [facility] Comment on above: Performed By: #### C CBFS #### [facility] [address] [place] [address] Dr. Jessica Sainz Eosinophils/100 WBC (Bld) 8 % Normal Not Estab. [facility] Comment on above: Performed By: #### C CBFS #### [facility] [address] [place] [address] Dr. Jessica Sainz Lining Cells, Serous Normal [facility] Comment on above: Performed By: #### C CBFS #### [facility] [address] [place] [address] Dr. Jessica Sainz Lymphocytes/100 WBC (Bld) 27 % Normal Not Estab. [facility] Comment on above: Performed By: #### C CBFS #### [facility] [address] [place] [address] Dr. Jessica Sainz Macrophages, Serous 39 % Normal Not Estab. [facility] Comment on above: Performed By: #### C CBFS #### [facility] [address] [address] [address] Jessica Sainz Nucleated Cells, Serous 1586 /mm3 Critically high 0-499 [facility] Comment on above: Result Comment: Pleu ral Fluid, with <1000 Nucleated cells/uL has been associated with transudates while >1000 uL may be seen in exudates. Performed By: #### C CBFS #### [facility] [address] [place] [address] Dr. Jessica Sainz Polys, Serous 26 % Critically high 0-24 [facility] Comment on above: Performed By: #### C CBFS #### [facility] [address] [place] [address] Dr. Jessica Sainz RBC, Serous Rare Normal Not Estab. [facility] Comment on above: Performed By: #### C CBFS #### [facility] [address] [place] [address] Dr. Jessica Sainz GLUCOSE BODYFLUIDon 10-14-19 22 Glucose, Body Fluid 91 mg/dL Normal [facility] Comment on above: Result Comment: ____ [...] 2008. Ninth edition (V9.1) [employer], [facility]; [place]: December 2008. The reference intervals and other method performance specifications have not been established for this test. The test result should be integrated into the clinical context for interpretation. Performed By: #### B FGLUC #### [facility] [address] [place] [address] Dr. Jessica Sainz LACTIC ACID DEHYDROGENASE (L D), BODY FLUon 10-13-2021 LD, Body Fluid 220 IU/L Normal [facility] Comment on above: Result Comment: ____ [...] 2007. Ninth Edition (V9.1) [employer], [facility]; [place]: December 2008. The reference intervals and other method performance specifications have not been established for this test. The test result should be integrated into the clinical context for interpretation. Performed By: #### C CBFS #### [facility] [address] [place] [address] Dr. Jessica Sainz PROTEIN, TOTAL, BODY FLUIDon 10-13-2021 Protein, Body Fluid 4.4 g/dL Normal [facility] Comment on above: Result Comment: ____ [...] 2008. Ninth Edition (V9.1) [employer], [facility]; [place]: December 2008. The method performance specifications have not been established for this test in body fluid. The test result should be integrated into the clinical context for interpretation. Performed By: #### T PBF #### [facility] [address] [place] [address] Dr. Jessica Sainz CYTOLOGYon 2021 SENT TO REF LAB 2021 Normal [facility] Comment on above: Performed By: #### C YTO #### [facility] [address] [place] [address] Dr. Jessica Sainz XR CHEST 1 Von [...] by: GAMA MI Date: 2021 10:[address] [facility] [address] CHEST WO CONon 09-30-2021 CT [...] by: GAMA MI Date: 2021-09-30 16:57 Normal [facility] CNPNon 11-18-2017 CNPN Telephone (Movea) ------CANDELARIA FOSTER ([id number]) 1960 FDate Time Provider Department11/18/17 KARINA WILLIS [...] Status:Closed by JENNA CHEUNG CNP on 11/18/17 [facility] ANES Darek 11-03-2017 ANES POST HNO ID: [id number] thor: Delisa Henderson AService: AnesthesiologyAuthor Type: AnesthesiologistType: [...] 2017 : 9:31 AM PAGER/CONTACT #: Ifeanyi [facility] ANES PREOPon 11-03-2017 ANES PREOP HNO ID: [id number] thor: Delisa Henderson AService: AnesthesiologyAuthor Type: AnesthesiologistType: Anesthesia PreOpFiled: 11/03/2017 8:03 AMNote Text:REGIONAL ANESTHESIOLOGY DAY OF SURGERY NOTEPATIENT NAME: Candelaria FosterMRN: [id number]: 1960Procedure(s) (LRB):VULVECTOMY PARTIAL SIMPLE (Left)Surgeon(s):Tamia TorresEstimated body [...] arteries- HYSTERECTOMY HX- PAST SURGICAL HISTORY OF [place] Teeth Extraction- PAST SURGICAL HISTORY OF [facility] on scalpFAMILY HISTORYProblem Relation Age of Onset- Heart Father d. @ 42 of [place]- Heart Paternal Grandfather d. @ 45 of [place]- Heart Brother Cardiac Stent Placement- Heart Sister- [...] findings confirmed. Patient examined. Discussed with the PRINT LINE FEEDER andthe patient. Plan as outlined.Ihab Ta Henderson, MDMa20178:03 AM [facility] BRIEF OP NOTon 11-03-2017 BRIEF OP NOT HNO ID: [id number] thor: Jorge Brennan: Gynecology OncologyAuthor Type: PhysicianType: Brief Op NoteFiled: 11/03/2017 8:24 AMNote Text:BRIEF OP NOTELOG ID: [id number]/Procedure Date: 11/03/2017Incision/Procedure Start Time: 8:04 AMIncision Close/Procedure End Time: 8:18 AMSurgeon(s)/Proceduralist( s) and Engineer [employer](s):Surgeon(s) and Role: * Tamia Torres - Primary [...] 03, 2017 : 8:22 AM PAGER/CONTACT #: [facility] HISTORY PHYSICALon 8 HISTORY PHYSICAL HNO ID: [id number] thor: Clair Diaz (Res)Service: Gynecology OncologyAuthor Type: [...] November 03, 2017 : 7:30 AM PAGER: [phone] [facility] NURSING PROGon 11-03-2017 NURSING PROG HNO ID: [id number] thor: Elma Frazier (Rn), RNService: NursingAuthor Type: Registered NurseType: Nursing Progress NoteFiled: 11/03/2017 8:42 AMNote Text: Nursing Progress NotePatient Name: Candelaria FosterMRN: [id number] Location: OR POOL/FV OR POOL 0828 Pt arrived from OR and attached to PACU monitor. Assessmentcompleted see assessment section. No signs of bleeding noted.This note was completed by: Elma Frazier RN [facility] OPERATIVE NOon 11-03-2017 OPERATIVE NO HNO ID: [id number] thor: Allyn Torreservice: Gynecology OncologyAuthor Type: PhysicianType: Operative ReportFiled: 11/04/2017 1:12 PMNote Text:OPERATIVE/PROCEDURE REPORTLOG ID: [id number]/PROCEDURE DATE: 11/03/2017INCISION/PROCEDURE START TIME: 8:04 AMINCISION CLOSE/PROCEDURE END TIME: 8:18 AMSURGEON(S)/PROCEDURALIST( S) AND CREPE MAKER(S):Surgeon(s) and Role: * Tamia Torres - Primary [...] 04, 2017 : 1:09 PM PAGER/CONTACT #: [facility] PLAN OF CAREon 11-03-2017 PLAN OF CARE HNO ID: [id number] thor: Rupesh (Mobile Battery Technician), Tameraice: (none)Author Type: TechnicianType: Plan of CareFiled: 11/04/2017 9:27 AMNote Text:PHARMACY BEDSIDE DELIVERY SERVICEPatient Name: Candelaria FosterN: [id number] marked outpatient medications were filled and deliveredMedication [...] them or your Primary Care Provider.Iveth Goddard (EduSourced)PAGER: [phone] 2017 9:27 AM [facility] PLAN OF CARE HNO ID: [id number] thor: Rupesh (EduSourced)Dorinda: (none)Author Type: TechnicianType: Plan of CareFiled: 11/03/2017 10:31 AMNote Text:Pharmacy Discharge Medication Service:This patient has elected to [facility] their discharge prescriptions throughthe [facility]. Theprescriptions are currently being processed. A follow-up note will beentered once the prescriptions have been filled and delivered to thepatient. Please contact me with any questions or updates to the patient'sdischarge medications.Iveth Goddard (EduSourced)DCT Contact Info: [phone] [facility] PLAN OF CARE HNO ID: [id number] thor: Rupesh HillEduSourced)Dorinda: (none)Author Type: TechnicianType: Plan of CareFiled: 11/03/2017 10:31 AMNote Text:OIL SPREADER OPERATOR BEDSIDE DELIVERY SURVEY1. Patient to use [facility] Bedside Delivery - YES2. If fax, patient would like us to fax prescriptions to [facility] a. Pharmacy: b. Location: c. Phone:3. Insurance card on file - YES4. Credit card for payment - N/A [facility] PT EDon 11-03-2017 PT ED HNO ID: [id number] thor: Kamla Zambrano (Rn), RNService: NursingAuthor Type: Registered NurseType: Patient EducationFiled: 11/03/2017 6:43 AMNote Text:PRE OP LEARNING ASSESSMENTPROCEDURE/SURGERY : SURGERY:READINESS TO LEARNCOGNITIVE ABILITY: Alert and orientedMOTIVATION TO LEARN: EagerFAMILY SUPPORT: Unable to assess - Family not presentPATIENT LEARNS BEST BY: Individual InstructionFACTORS AFFECTING LEARNING: NonePHYSICAL LIMITATIONS AFFECTING LEARNING: NoneElectronically Signed By: Kamla Zambrano RN In Department: [facility] OPERATING ROOM [facility] SURGICAL PATHOLOGYon 018 SURGICAL PATHOLOGY [facility]: [id number] Physician: TAMIA TORRES MD FINAL DIAGNOSIS1. Right [...] 6 o'clock.WE/db 11/03/2017 Gross examination performed at [facility], [address] [place] [address] of Report: 11/08/2017Date of Procedure: 11/03/2017Date of Receipt: 11/03/2017Submitted by: TAMIA TORRES MDLocation: FVORDiagnostic interpretation performed at [facility], [address] [place] [address]. Normal [facility] Comment on above: Performed By: #### P ATHS ####[place] [address] NURSING PROGon 10-26-2017 NURSING PROG HNO ID: [id number] thor: Bambi (Rn) Lyon, RNService: General SurgeryAuthor Type: Registered NurseType: Nursing Progress NoteFiled: 10/26/2017 4:26 PMNote Text:PACC Nurse Progress NoteHistory AND Physical:PACC Visit Date: 4-49-94Elhjaqxk HANDP Date: N/AED visit Date: N/AOutside HANDP Scanned Date: N/ALabs Within Last 6 Months:CBC: Date 10-19-17BMP/CMP: Date 0-68-78Kafontb Within Last 12 Months:N/ACardiac Testing:EKG in last 12 Months: Yes: Date: 10-19-17, Comment: Confirmed in EPIC.Last Menstrual Period:LMP Date: UnknownPostmenopausal >1yr: Yes,S/P Hysterectomy: YesBMI Percentile (PEDS):N/ARisk Assessment:N/AAnesthesia Review:N/ANarrative:N/APre- op Considerations:N/AChart Check:Stella Gonsalezy 2017 4:25 PM Normal [facility] HOSPon 10-05-2017 HOSP Patient:Sumi Foster [...] 3.7HEMA* 43.3 % 10/19/2017 46.0 36.0Progress Notes (PATIENT FINANCIAL COUNSELOR [facility]):Aleena Cuenca (Rn), RN 10/31/2017 3:20 PM SignedPt is scheduled for vulvectomy with Dr. Torres on 11/03/17Pt calls today stating she had flare up of hemorrhoids this weekend and askingif okay to use preparation H. Instructed her that it would most likely be okayas long as it is not used on day of procedure and area is clean and dry.Advised I would discuss with BOOK PACKER and call her backShe also states that [...] RN 11/01/2017 4:33 PM SignedInformed pt of [facility]'s message to go ahead and use [...] use cortizone creamthere.Will update medical teamGalina Dowell (Cell Reliner) 11/02/2017 3:08 PM SignedWould not advise any creams in anticipation of procedure for tomorrowThNano Bentley (Rn), RN 11/02/2017 3:49 PM SignedLeft for patient in regards to message below.Progress Notes (PATIENT FINANCIAL COUNSELOR [facility]):Aleena Cuenca (Rn), RN 10/26/2017 1:57 PM SignedLeft for pt to call office to discuss pre-op instructions prior to surgerywith Dr. Torres on 11/03/17Nimco Tong RN 10/27/2017 4:00 PM SignedPatient returning call for pre op instructions.Procedure: VULVECTOMY PARTIAL SIMPLEPhysician: Tamia TorresLocation: [facility]: [phone] AND Time: 11/03/2017MEDICAL CLEARANCE: No CARDIAC CLEARANCE: NoPRE ADMISSION TESTIN10/19/17 AT: [facility]): [phone] FOLLOWING WAS EVALUATED Motivation To Learn: Interested [...] Celebrex MotrinAggrenox Clinoril Naprosyn(naproxen)Agrylin NSAIDS Pepto-BismolAleve Ecotrin PersantineAlka-Wilmot Excedrin PlaquenilAnacin Heparin PlavixAscriptin Herbals PletalAspergum Ibuprofen [...] - IV pain medication after surgery, IV PELLET MACHINE OPERATOR if ordered by MD,discharged home with a prescription for PO pain medication, pain managementafter surgery, side effects of pain medication (including constipation,dizziness, drowsiness, and medication interactions).DVT PROPHYLAXIS - Early ambulation, SCDs, injectable anticoagulants (heparin,lovenox, etc)RESPIRATORY - Incentive spirometer, coughing/deep breathing exercises,ambulation.RETURN TO WORK - As directed by physician, please send any [facility] papers tophysician's corporate legal secretary.SYMPTOMS TO NOTIFY MD - Fever, chills, nausea, vomiting, increased or severepain, heavy vaginal bleeding, foul smelling vaginal drainage, pain or swellingin extremities.URGENT SYMPTOMS - Call 911 or go to ER if any shortness of breath, difficultybreathing, or chest pain.HOW TO CONTACT PHYSICIAN - Physician's office phone number given to patient, ifafter hours patient instructed to call well flow operator and ask for the doctor global expansion sales director.Patient and family have phone number to call 24 hours/day.Patient Evaluation: Verbalizes understandingPatient and/or family express understanding of upcoming surgery and theoperative process. Questions answered.Follow Up Plan: Follow up as neededSupplemental Material Given:Pre-operative teaching packet provided to the patient:INPATIENT/OUTPATIEN T printed instructions; Post-operative instruction sheet,bowel prep instruction sheetFor questions contact: Tamia Torres's office at [phone] By Nimco Garza RN Normal [facility] Vital Signs Date Time Vital Sign Value Performing Clinician Facility 05-21-2024 10:44-0500 Body mass index (BMI) [Ratio] 26.43 kg/m2 Nimco LIANG Work Phone: [facility] 05-21-2024 10:44-0500 Body weight 69.85 kg Nimco LIANG Work Phone: [facility] 05-21-2024 10:44-0500 Diastolic blood pressure 70 mm[Hg] Nimco LIANG Work Phone: [facility] 05-21-2024 10:44-0500 Systolic blood pressure 124 mm[Hg] Nimco LIANG Work Phone: [facility] 12-16-2023 11:27-0400 Body height 157.48 cm [facility] 12-16-2023 11:27-0400 Body mass index (BMI) [Ratio] 27.3 kg/m2 [facility] 12-16-2023 11:27-0400 Body weight 67.75 kg [facility] 12-16-2023 11:27-0400 Diastolic blood pressure 81 mm[Hg] [facility] 12-16-2023 11:27-0400 Heart rate 75 /min [facility] 12-16-2023 11:27-0400 Respiratory rate 12 /min [facility] 12-16-2023 11:27-0400 Systolic blood pressure 143 mm[Hg] [facility] 12-14-2022 11:00-0400 Body height 156.21 cm Clint Ball Other [facility] Other 12-14-2022 11:00-0400 Body mass index (BMI) [Ratio] 28.25 kg/m2 Clint Ball Other [facility] Other 12-14-2022 11:00-0400 Body weight 68.95 kg Clint Ball Other [facility] Other 12-14-2022 11:00-0400 Diastolic blood pressure 73 mm[Hg] Clint Veras Other [facility] Other 12-14-2022 11:00-0400 Respiratory rate 12 /min Clint Veras Other [facility] Other 12-14-2022 11:00-0400 Systolic blood pressure 112 mm[Hg] Clint Veras Other [facility] Other Encounters Encounter Date Encounter Type Care Provider Facility Start: 05-21-2024 End: 05-21-2024 Bamboo flowsheet Nimco LIANG Work Phone: [facility] Start: 05-21-2024 End: 05-21-2024 Bamboo flowsheet Nimco LIANG Work Phone: [facility] Start: 05-21-2024 End: 05-21-2024 Patient encounter procedure Nimco LIANG Work Phone: [facility] Start: 05-21-2024 End: 05-21-2024 Periodic preventive med est patient 40-64yrs Nimco LIANG Work Phone: [facility] Comment on above: Well woman exam with routine gynecological exam; H/O: hysterectomy; Breast cancer screening by mammogram; Osteoporosis, post-menopausal (CMS/HCC); Urinary tract infection without hematuria, site unspecified Start: 05-21-2024 End: 05-21-2024 ambulatory NIMCO TRIMBLE Not Available Start: 03-06-2024 End: 03-06-2024 ambulatory CHAY ALEJANDRE Not Available Start: 01-04-2024 End: 01-04-2024 ambulatory CHAY ALEJANDRE Not Available Start: 12-16-2023 End: 12-16-2023 ambulatory [facility] Work Phone: Start: 12-16-2023 End: 12-16-2023 Encounter for general adult medical examination without abnormal findings [facility] Start: 12-16-2023 End: 12-16-2023 Patient encounter procedure [facility] Work Phone: Start: 12-07-2023 End: 12-07-2023 ambulatory CHAY ALEJANDRE Not Available Start: 11-07-2023 End: 11-07-2023 ambulatory MIKAL LEMUS Not Available Start: 01-21-2023 End: 01-21-2023 ambulatory Clint Veras Other [facility] Other Start: 01-21-2023 Telephone encounter Clint Mantilla [facility] Start: 12-15-2022 End: 12-15-2022 ambulatory Clint Veras Other [facility] Other Start: 12-15-2022 Telephone encounter Clint Mantilla [facility] Start: 12-14-2022 End: 12-14-2022 ambulatory Clint Veras Other [facility] Other Start: 12-14-2022 Encounter for genera l adult medical examination without abnormal findings Clint Veras [facility] Start: 12-14-2022 Periodic preventive med est patient 40-64yrs Clint Veras [facility] Start: 07-16-2022 End: 07-16-[address] SHARMAINE CHAUDHARI . [facility] Other Start: 07-16-2022 Telephone encounter Clint Mantilla Associate Publisher Start: 06-27-2022 End: 07-13-[address] CLINT VERAS Facility:[facility] Start: 06-23-2022 End: 06-23-2022 ambulatory Leon Kohli Facility:[facility] Start: 06-22-2022 End: 06-22-2022 ambulatory Leon Kohli Other [facility] Other Start: 06-22-2022 Telephone encounter Leon Mantilla [facility] Start: 06-16-2022 End: 06-26-[address] CLINT VERAS Facility:[facility] Start: 06-08-2022 End: 06-08-2022 ambulatory David Lemus Other [facility] Other Start: 06-08-2022 Office outpatient ne w 45 minutes David Lemus [facility] Start: 05-27-2022 Gynecological examination normal Clint Veras Other [facility] Other Start: 05-27-2022 End: 05-27-[address] CLINT VERAS Facility:[facility] Start: 05-14-2022 End: 05-15-[address] CLINT VERAS Facility:[facility] Start: 05-11-2022 End: 05-12-[address] CLINT VERAS Facility:[facility] Start: 04-23-2022 End: 04-23-[address] SHARMAINE CHAUDHARI . Facility:[facility] Start: 02-22-2022 End: 02-22-2022 ambulatory Leon Kohli Other [facility] Other Start: 02-22-2022 Telephone encounter Leon MAYORGA G Associate Publisher Start: 01-16-2022 End: 01-17-[address] GAMA MI Facility:[facility] Start: 01-06-2022 End: 01-07-[address] ELMER ANTOINE Facility:[facility] Start: 12-10-2021 Encounter for genera l adult medical examination without abnormal findings DR CLINT VERAS [facility] Start: 12-08-2021 End: 12-09-[address] CLINT VERAS Facility:[facility] Start: 12-08-2021 End: 12-09-2021 Encounter for general adult medical examination without abnormal findings DR CLINT VERAS Facility:[facility] Start: 12-08-2021 Adult health examination Clint Veras Other [facility] Other Start: 2021 End: [address] GAMA MI Facility:[facility] Start: 09-30-2021 End: 10-01-[address] CLINT VERAS Facility:[facility] Start: 11-03-2017 End: 05-10-2018 Ambulatory [facility] Procedures Date Procedure Procedure Detail Performing [...] EST Office Visit [facility] [address] [place] [id number] Nimco Trimble PA [address] [address] [facility] Start: 11-06-2024 End: 11-06-2024 Patient encounter procedure 11/06/2024 11:35 AM EDT Office Visit [facility] [address] [place] [phone] Mikal Lemus APRN-BOOK PACKER [address] [place], [place] [id number] [facility] Start: 05-29-2024 End: 05-29-2024 Patient encounter procedure 05/29/2024 10:45 AM EST Office Visit [facility] [address] [place] [address] Chay Alejandre DPDonell [address] [address] [place] [address] [facility] Start: 05-21-2024 End: 05-21-2025 DXA Skeletal system Views for bone density DEXA bone density Imaging Routine Osteoporosis, post-menopausal ([facility]/HCC) Expected: 05/21/2024 (Approximate), Expires: 05/21/2025 [facility] Comment on above: Expected: 05/21/2024 (Approximate), Expires: 05/21/2025 Start: 05-21-2024 End: 07-21-2025 MG Breast - bilateral Screening Bilateral screening mammogram Imaging Routine Breast cancer screening by mammogram Expected: 05/21/2024 (Approximate), Expires: 07/21/2025 [facility] Work Phone: Comment on above: Expected: 05/21/2024 (Approximate), Expires: 07/21/2025 Start: 05-21-2024 End: 05-21-2024 Patient encounter procedure 05/21/2024 10:00 AM EST Office Visit [facility] [address] [place] [address] Nimco Trimble PA [address] [address] Arrived [facility] Comment on above: Arrived Comprehensive metabo lic 2000 panel - Serum or Plasma [facility] THIN PREP TIS PAP AN D HR HPV DNA THIN PREP TIS PAP AND HR HPV DNA Pathology and Cytology Routine Well woman exam with routine gynecological exam H/O: hysterectomy Ordered: 05/21/2024 [facility] Comment on above: Ordered: 05/21/2024 [facility] Immunizations Immunization Date Immunization Notes Care Provider Fa zachary 09-03-2020 COVID-19 Vaccine Mejia ssen - Documentation Purposes Only Clint Veras Other [facility] Payers Date Payer Category Payer Private Health Insurance [employer] [employer] [id number] 2023 Unknown [id number] 1959 Unknown [id number] 2.16.840.1.742946.3.579. 2.593 1959 Unknown [id number] 2.16.840.1.424460.3.579. 2.593 1959 Unknown [id number] 2.16.840.1.767610.3.579. 2.593 1959 Unknown [id number] 2.16.840.1.477423.3.579. 2.593 1959 Unknown [id number] 2.16.840.1.491355.3.579. 2.593 1959 Unknown [id number] 2.16.840.1.119116.3.579. 2.593 1959 Unknown [id number] 2.16.840.1.194722.3.579. 2.593 1959 Unknown [id number] 2.16.840.1.524187.3.579. 2.593 1959 Unknown [id number] 2.16.840.1.645938.3.579. 2.593 1959 Unknown [id number] 2.16.840.1.636015.3.579. 2.593 1959 Unknown [id number] 2.16.840.1.240156.3.579. 2.593 1959 Unknown [id number] 2.16.840.1.098767.3.579. 2.593 1959 Unknown [id number] 2.16.840.1.300461.3.579. 2.593 1959 Unknown [id number] 2.16.840.1.840454.3.579. 2.1259 1959 Unknown [id number] 2.16.840.1.700948.3.579. 2.1259 1959 Unknown [id number] 2.16.840.1.728638.3.579. 2.1259 1959 Unknown [id number] 1960 Unknown [id number] 1960 Unknown [id number] 1960 Unknown [id number] Private Health Insurance [facility] [id number] Self-pay Self Pay [id number] Social History Date Type Detail Facility Sex Assigned At [facility] Other Start: 06-23-2022 Tobacco smoking status [facility] Smoker (finding) [facility] Start: 1960 Sex Assigned At Female F [facility] Start: 05-01-2023 Tobacco smoking status [facility] Tobacco smoking consumption unknown [facility] Start: [...] (See Comments) Other Reaction(s): Itching Acetaminophen Itching Lnrml-Qpudaik-Maqsv[facility] Other Other Reaction(s): Unknown Reaction Caffeine Anxiety [...] with bilateral sciatica Arrhythmia Arthritis Atherosclerosis [place] artery of both lower extremities with intermittent [...] with bilateral sciatica Arrhythmia Arthritis Atherosclerosis [place] artery of both lower extremities with intermittent [...] 2021 EGD 05/2019 OTHER SURGICAL HISTORY 02/2016 [facility] OTHER SURGICAL HISTORY 11/2017 Bx Periclitor, [...] (See Comments) Other Reaction(s): Itching Acetaminophen Itching Uis[facility]g-Xmzfjzs-Fdhgec Other Other Reaction(s): Unknown Reaction Caffeine Anxiety [...] with bilateral sciatica Arrhythmia Arthritis Atherosclerosis [place] artery of both lower extremities with intermittent [...] with bilateral sciatica Arrhythmia Arthritis Atherosclerosis [place] artery of both lower extremities with intermittent [...] 2021 EGD 05/2019 OTHER SURGICAL HISTORY 02/2016 [facility] OTHER SURGICAL HISTORY 11/2017 Bx Periclitor, [...] of: AZUL Zapata documented in this encounter [facility] 01-21-2023 Evaluation note Encounter Date Diagnosis Assessment Notes Dec, Cigarette nicotine dependence without complication (ICD-10 - F17.210) LDCT lungs w/o suspicious nodules - 12/2022Dec, Mucopurulent chronic bronchitis (ICD-10 - J41.1) [facility] Other 06-20-2023 Evaluation note* Encounter Date Diagnosis [...] use, the patient reduces the risk for UT, CVA, HTN, cardiac dysrhythmias and sudden cardiac [...] repeat scope in 5years Nov, Atherosclerosis [place] artery of both lower extremities with intermittent claudication (ICD-10 - I70.213) Inspect feet daily, walk daily. Continue ASA and Statin therapy [facility] Other 01-22-2023 History general Narrative - Reported* Type Description Date Medical History hypertension Medical History hyperlipidemia Medical History fibromyalgia Surgical History hysterectomy Surgical History colonoscopy 07/18/22 [facility] Other 01-22-2023 History general Narrative - Reported* Type Description Date Medical History hypertension Medical History hyperlipidemia Medical History fibromyalgia Surgical History hysterectomy Surgical History colonoscopy 07/18/22 Hospitalization History see surgical history [facility] Other 12-13-2022 Evaluation note* Encounter Date Diagnosis [...] note writ ten by Rashaad Alejandre MA, Meat Wrapper. Edited and approved by Dr. David Lemus [...] negative findings were considered in medical decision-making. [facility] Other 08-29-2022 Evaluation note* Encounter Date Diagnosis Assessment Notes Treatment Notes Treatment Clinical Notes Jan, Screening for colon cancer (ICD-10 - Z12.11) [facility] Other Evaluation noteNo [facility] Other Evaluation note* Diagnosis Onset Date Resolution Status Chronic bronchitis acute ELADIO (generalized anxiety disorder) acute Hypertension acute Nicotine addiction acute TARA (obstructive sleep apnea) acute Peripheral artery disease ac birdie Wellness examination noneact jason [facility] Work Phone: Evaluation note* Diagnosis Well woman exam with routine gynecological exam Routine gynecological examination H/O: hysterectomy Acquired absence of both cervix and uterus Breast cancer screening by mammogram Osteoporosis, post-menopausal ([facility]/HCC) Senile osteoporosis Urinary tract infection without hematuria, site unspecified [facility] this [facility] - Reported* Type Description Date Medical History hypertension Medical History hyperlipidemia Medical History fibromyalgia Surgical History hysterectomy [facility] Other Summary Purpose Family History No Family [...] and content) DATE CREATED AUTHOR 12/14/2017 [facility] DATE CREATED AUTHOR AUTHOR'S ORGANIZ ATION 06/23/2022 [facility] DATE CREATED AUTHOR AUTHOR'S ORGANIZ ATION 09/21/2022 [facility] DATE CREATED AUTHOR AUTHOR'S ORGANIZ ATION 05/23/2024 [facility] d[facility] Specialists EPIC REASON FOR VISIT (unrecogniz ed section and content) Reason Comments Gynecologic Exam Care Teams (unrecognized sec tion and content) Team Status: Active Member Role Status Dates Clint Veras DO Primary Care Provider Active Team Status: Inactive Member Role Status Dates Clint Veras DO Primary Care Provide r, Attending Provider Active Start: December 16, 2023 End: December 16, 2023 Nurse Anesthetist Relationship Specialty Start Date End Date Clint Veras MD [address] [place] [id number] PCP - General Internal Medicine 05/16/23 Nurse Anesthetist Relationship Specialty Start Date End Date Clint Veras MD [address] [place] [id number] PCP - General Internal Medicine 05/16/23 Goals [...] BE BASED ON THE PRIMARY CLINICAL RECORDS. [facility] [employer] [facility]. provides no warranty or guarantee of the accuracy or completeness of information in this document.
[2024-05-27 22:45] VITALS: BP 208/106; PULSE 120; TEMP 36.9; O2SAT 96; BMI 27.5
--- NOTE | 2024-05-27 22:59 | ECG_ITS ---
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
--- NOTE | 2024-05-27 22:59 | XR_ITS ---
The [address] [address] Patient Name: MALACHI FOSTER MRN: [id number] date: 1960 Sex: F Assigned Patient Location: ER Current Patient Location: Accession/Order Number: [id number] Exam Date: 05/27/2024 23:30 Report Date: 05/28/2024 04:15 At the request of: EDGARD FALK Procedure: XR chest 1V EXAM: XR chest 1V HISTORY: Shortness of breath. COMPARISON: Portable chest radiograph dated 01/17/2024. TECHNIQUE: AP upright portable chest radiograph performed. FINDINGS: The heart size is within normal limits. The cardiomediastinal silhouette and hilar shadows are unremarkable. There is no consolidation, pleural effusion or pulmonary vascular congestion. There is no pneumothorax or acute osseous abnormality. XR/XR chest 1V IMPRESSION: There is no acute cardiopulmonary process. Electronically authenticated by: GIN KELLY Date: 05/28/2024 04:15
[2024-05-27 23:14] VITALS: PULSE 102; O2SAT 93
[2024-05-27] MEDS: IPRATROPIUM/ALBUTEROL SULFATE 3 ML AMPUL.NEB 6 ML IH (23:14)
[2024-05-27 23:24] LABS: Basophils Percent Auto 0.4 % (0.2-2.0); Eosinophils Absolute Auto 0.1 10^3/uL (0.0-0.7); Eosinophils Percent Auto 0.8 % (0.9-7.0); Hematocrit 39.2 % (36.0-48.0); Hemoglobin 12.8 g/dL (12.0-16.0); Immature Granulocytes Abs Auto 0.01 10^3/uL (0.00-0.03); Immature Granulocytes Pct Auto 0.1 % (0.0-0.5); Lymphocytes Percent Auto 14.5 % (20.5-60.0); Mean Corpuscular HGB Conc 32.7 g/dL (29.9-35.2); Mean Corpuscular Volume 88.7 fL (81.0-99.0); Mean Platelet Volume 10.4 fL (9.5-13.5); Monocytes Absolute Auto 0.7 10^3/uL (0.3-0.8); Monocytes Percent Auto 9.5 % (1.7-12.0); Neutrophils Absolute Auto 5.3 10^3/uL (1.4-6.5); Neutrophils Percent Auto 74.7 % (43.0-75.0); Platelet Count 213 10^3/uL (150-450); Red Blood Count 4.42 10^6/uL (4.20-5.40); Red Cell Distribution Width 12.7 % (11.0-15.0); White Blood Count 7.2 10^3/uL (4.0-11.0)
[2024-05-27 23:30] VITALS: PULSE 108; O2SAT 97
[2024-05-27] MEDS: METHYLPREDNISOLONE SOD SUCC PF 125 MG/2 ML VIAL IVP (23:30)
[2024-05-27 23:37] LABS: Anion Gap 14.9; BUN Creatinine Ratio 22.4; Calcium 9.2 mg/dL (8.5-10.1); Carbon Dioxide 25.2 mmol/L (21.0-32.0); Chloride 107 mmol/L (98-107); Estimated GFR (African America >60 (>=60 mL/min/1.73m^2); Estimated GFR (Non-African Ame >60 (>=60 mL/min/1.73m^2); Glucose 113 mg/dL (74-106); Potassium 4.1 mmol/L (3.5-5.1); Sodium 143 mmol/L (136-145)
--- NOTE | 2024-05-28 00:05 | ED_ITS ---
HPI HPI - General Adult General Chief complaint: Upper Respiratory Infection Stated complaint: SHORTNESS OF BREATH Time Seen by Provider: 05/27/24 22:59 Source: patient Mode of arrival: walk-in Limitations: no limitations History of Present Illness HPI narrative: 63-year-old female to the emergency department with chief complaint of shortness of breath. Patient reports she started with an upper respiratory tract infection on Tuesday. She reports she initially had nasal congestion, sore throat and malaise. She reports that today she began to feel short of breath increasingly throughout the day. She denies any chest pain. No fever, sweats, chills. The cough is occasionally productive. She does have a history of COPD. Related Data Home Medications ?Medication ?Instructions ?Recorded ?Confirmed aspirin 81 mg tablet,delayed 81 mg PO DAILY 01/17/24 01/17/24 release (Adult Low Dose Aspirin) atorvastatin 20 mg tablet 20 mg PO DAILY 01/17/24 01/17/24 lisinopril 5 mg tablet 5 mg PO DAILY 01/17/24 01/17/24 Previous Rx's ?Medication ?Instructions ?Recorded doxycycline hyclate 100 mg tablet 100 mg PO BID 7 days #14 tabs 02/13/24 azithromycin 250 mg tablet See Rx Instructions PO .COMPLEX #6 05/28/24 (Zithromax Z-Yosef) tabs uwsfyuzxbiurvvu-rpcgvkezqbxnidb-XI 5 ml PO Q4H PRN cold symptoms #118 05/28/24 2 mg-30 mg-10 mg/5 mL oral syrup mL (Bromfed DM) prednisone 20 mg tablet 60 mg (3 x 20 mg) PO DAILY 5 days 05/28/24 #15 tabs Allergies Allergy/AdvReac Type Severity Reaction Status Date / Time acetaminophen (From Allergy Severe Rash Verified 05/27/24 22:48 Darvocet-N) bupropion (From Wellbutrin) Allergy Severe Rash Verified 05/27/24 22:48 cyclobenzaprine (From Allergy Severe Palpitation Verified 05/27/24 22:48 Flexeril) s propoxyphene (From Allergy Severe Rash Verified 05/27/24 22:48 Darvocet-N) Opioid HPI Opioid Management Most Recent Opioid Data: No Data to Display Review of Systems ROS Status of ROS 10 or more systems reviewed and unremark able except as noted in history and below [facility] Medical History (Updated 05/28/24 @ 02:24 by aIn Alcala MD) COPD (chronic obstructive pulmonary disease) ?J44.9 - Chronic obstructive pulmonary disease, unspecified (ICD-10) Hypertension ?I10 - Essential (primary) hypertension (ICD-10) Social History Little interest or pleasure in doing things: not at all Feeling down, depressed, or hopeless: not at all Exam Narrative Exam Narrative: VITALS: I have reviewed the triage vital signs. GENERAL: Well developed, well appearing adult in no acute distress. NEURO: Alert and oriented. Moves all extremities. Face is symmetric and expressive. EYES: PERRL. No scleral icterus or conjunctival injection. No discharge. HENT: Normocephalic, atraumatic. Hearing is grossly intact. Nares grossly patent and without discharge. Mucous membranes moist. NECK: No JVD. Patient moves neck without restriction. CARDIO: Rhythm regular. Normal rate. No murmur, rub, or gallop. Pulses equal bilaterally in the upper and lower extremity. No lower extremity edema. PULM: Decreased air movement. Rhonchi that clear with coughing. Wheezes throughout. Moderate conversational dyspnea. Moderate increased work of breathing. GI/: Abdomen is soft and non-tender. Normoactive bowel sounds. EXTREMITIES: Symmetric muscle bulk. No joint swelling. No clubbing, cyanosis, or deformity. SKIN: Warm and dry. Normal turgor. No rash or lesions appreciated. PSYCH: Mood, affect, and interaction is appropriate to the setting. Constitutional Vital Signs, click to edit/add: Last Vital Signs Temp 98.4 F 05/27/24 22:45 Pulse 108 H 05/27/24 23:30 Resp 24 H 05/27/24 23:30 BP 208/106 H 05/27/24 22:45 Pulse Ox 97 05/27/24 23:30 O2 Del Method Room Air 05/27/24 23:30 Course Vital Signs Vital signs: Vital Signs Temperature 98.4 F 05/27/24 22:45 Pulse Rate 120 H 05/27/24 22:45 Respiratory Rate 20 05/27/24 22:45 Blood Pressure 208/106 H 05/27/24 22:45 Pulse Oximetry 96 05/27/24 22:45 Oxygen Delivery Method Room Air 05/27/24 22:45 Temperature 98.4 F 05/27/24 22:45 Pulse Rate 108 H 05/27/24 23:30 Respiratory Rate 24 H 05/27/24 23:30 Blood Pressure 208/106 H 05/27/24 22:45 Pulse Oximetry 97 05/27/24 23:30 Oxygen Delivery Method Room Air 05/27/24 23:30 Medical Decision Making MDM Narrative Medical decision making narrative: 63-year-old female to the emergency department chief complaint of shortness of breath. She is in moderate respiratory distress upon arrival. She is tachypneic, tachycardic and hypertensive. She has normal blood pressure. She i s afebrile. She does have wheezing on exam. History of COPD. DuoNeb treatments were ordered. Solu-Medrol ordered. Basic labs and chest x-ray to be obtained. Lab work reviewed and noted. No significant abnormalities. Her EKG is without any evidence of ischemia or arrhythmia. She is tachycardic however. Chest x- ray is without focal infiltrate. Patient's felt significantly improved after treatment. Ambulatory pulse ox without any desaturation or significant increased work of breathing. Discussed with patient. She feels safe for discharge home which I agree with. Azithromycin, prednisone, albuterol MDI, Bromfed were prescribed for symptoms. She will follow-up with her primary care doctor as well as Dr. Perry. All questions were answered. The patient was discharged home. Medical Records Medical records reviewed: Yes I reviewed the patient's medical records Lab Data Lab results reviewed: Yes I reviewed the patient's lab results Labs: Lab Results 05/27/24 Range/Units 23:19 WBC 7.2 (4.0-11.0) 10^3/uL RBC 4.42 (4.20-5.40) 10^6/uL Hgb 12.8 (12.0-16.0) g/dL Hct 39.2 (36.0-48.0) % MCV 88.7 (81.0-99.0) fL MCH 29.0 (26.7-34.0) pg MCHC 32.7 (29.9-35.2) g/dL RDW 12.7 (11.0-15.0) % Plt Count 213 (150-450) 10^3/uL MPV 10.4 (9.5-13.5) fL Neut % (Auto) 74.7 (43.0-75.0) % Lymph % (Auto) 14.5 L (20.5-60.0) % [place] % (Auto) 9.5 (1.7-12.0) % Eos % (Auto) 0.8 L (0.9-7.0) % Baso % (Auto) 0.4 (0.2-2.0) % Neut # (Auto) 5.3 (1.4-6.5) 10^3/uL Lymph # (Auto) 1.0 L (1.2-3.8) 10^3/uL [place] # (Auto) 0.7 (0.3-0.8) 10^3/uL Eos # (Auto) 0.1 (0.0-0.7) 10^3/uL Baso # (Auto) 0.0 (0.0-0.1) 10^3/uL Abs Immat Gran (auto) 0.01 (0.00-0.03) 10^3/uL Imm/Tot Granulo (auto) 0.1 (0.0-0.5) % Sodium 143 (136-145) mmol/L Potassium 4.1 (3.5-5.1) mmol/L Chloride 107 (98-107) mmol/L Carbon Dioxide 25.2 (21.0-32.0) mmol/L Anion Gap 14.9 BUN 17.0 (7.0-18.0) mg/dL Creatinine 0.76 (0.55-1.02) mg/dL Est GFR ( Amer) >60 (>=60 mL/min/1.73m^2) Est GFR (Non-Af Amer) >60 (>=60 mL/min/1.73m^2) BUN/Creatinine Ratio 22.4 Glucose 113 H (74-106) mg/dL Calcium 9.2 (8.5-10.1) mg/dL Troponin I High Sens 12.0 (4.0-51.3) pg/mL NT-Pro-B Natriuret Pep 59.0 (<=900.0) pg/mL Imaging Data Chest x-ray: Attestation: I personally reviewed and interpreted this imaging study as follows: (No acute cardiopulmonary process) ECG Data Attestation: I personally reviewed and interpreted this ECG as follows: (Sinus tachycardia at a rate of 101. No STEMI. Normal QTc.) Discharge Plan Discharge Chief Complaint: Upper Respiratory Infection Clinical Impression: COPD with acute exacerbation Patient Disposition: Home, Self-Care Time of Disposition Decision: 02:24 Condition: Good Mode of Transportation: Private Vehicle Prescriptions / Home Meds: New azithromycin [Zithromax Z-Yosef] 250 mg tablet See Rx Instructions .ROUTE .COMPLEX Qty: 6 0RF Rx Instructions: For 250 mg dose pack: take 500 mg today (day 1), then 250 mg for 4 days (days 2-5) prednisone 20 mg tablet 60 mg PO DAILY 5 Days Qty: 15 0RF fvcpskepbcouqnw-jgkhxtycy-YX [Bromfed DM] 2-30-10 mg/5 mL syrup 5 ml PO Q4H PRN (Reason: cold symptoms) Qty: 118 0RF No Action doxycycline hyclate 100 mg tablet 100 mg PO BID 7 Days Qty: 14 0RF atorvastatin 20 mg tablet 20 mg PO DAILY lisinopril 5 mg tablet 5 mg PO DAILY aspirin [Adult Low Dose Aspirin] 81 mg tablet,delayed release (DR/EC) 81 mg PO DAILY Print Language: Mohawk Instructions: How to Use a Metered-Dose Inhaler (ED), COPD (Chronic Obstructive Pulmonary Disease) (ED) Additional Instructions: Call the office of your primary care doctor to arrange for follow-up within the above-stated timeframe. Your ED visit was focused on your acute issue and does not replace primary care. You should review your labs, imaging, and diagnoses from this ED visit with your primary care physician. There may be non-emergent/ incidental findings that need further evaluation. You should review your vital signs including blood pressure with your PCP. If you were prescribed medications you should discuss possible side-effects and drug interactions with your pharmacist. Call 911 or go to the nearest Emergency Department if you develop any new or worsening symptoms. Seek immediate medical attention if you develop: worsening shortness of breath, difficulty breathing, chest pain, nausea, vomiting, weakness, numbness, tingling, excessive sweating, loss of motion in your arms or legs, or any new or worsening symptoms. Referrals: Clint Veras DO [Primary Care Provider] - 1 week
--- NOTE | 2024-05-28 01:52 | PC.NURSE ---
Pt ambulated in room with pulse ox per physician request. Pt oxygen sat between 91% and 92% with ambulation.
[2024-05-28] MEDS: ALBUTEROL SULFATE 200 PUFF/6.7 GM INHALER IH (02:52)
[2024-05-28 02:53] VITALS: BP 162/86; PULSE 102; O2SAT 90
[2024-05-28] MEDS: ALBUTEROL SULFATE 2.5 MG/3 ML VIAL NEB IH (02:53)
== END 2024-05-28 02:53 | disposition home or self-care (01) ==
PROVIDERS: Emergency Provider Student in an Organized Health Care Education/Training Program; PCP Internal Medicine
DX: J44.1 Chronic obstructive pulmonary disease with (acute) exacerbation (principal); R06.02 Shortness of breath
CPT/HCPCS: 36415; 71045; 80048; 83880; 84484; 85025; 93005; 94640; 96374; 99285; J2919

== ENCOUNTER 2024-06-15 08:59 | Outpatient (OUT) | payer OTHER, SELFPAY ==
--- OUTSIDE RECORDS SUMMARY | 2024-06-15 09:05 | XMS_ITS | CCD ---
Author Organization [facility] Care Team Providers Care Ship Steward Name Role Phone ANGELINATAMIA Unavailable Unavailable , [...] Translations: [BUPROPION HCL] Drug Allergy 03-05-20 16 [facility] Repository (10 sources) caffeine; Translations: [CAFFEINE] Drug Allergy 03-05-20 16 Anxiety [facility] Repository (1 source) cyclobenzaprine; Translations: [CYCLOBENZAPRINE HCL] Drug All[facility]-01-[facility] PROPOXYPHENE N-ACETAMINOPHEN; Translations: [PROPOXYPHENE N-ACETAMINOPHEN] Propensity to adverse reactions to drug (disorder) 03-05-20 16 [facility] Repository (8 sources) cyclobenzaprine; Translations: [Flexeril] Drug Allergy Unknown [facility] Repository (2 sources) buPROPion Drug Allergy 01-01-20 16 WELLBUTRIN [facility] Repository (1 source) Darvocet-N 100 Drug allergy (disorder) 01-01-20 16 [facility] Repository (9 sources) buPROPion Drug Allergy 06-27-19 05 Itching, Hives, Rash [facility] (9 sources) cyclobenzaprine Drug Allergy 06-12-20 17 Rash, Palpitations [facility] (1 source) Propoxyphene Drug Allergy 06-27-19 18 DARVOCET [facility] Other (1 source) Allergies Reconciled Propensity to adverse reactions Unknown [facility] Other (1 source) patient allergy list reviewed by nurse or physicia Propensity to adverse reactions 01-23-20 Comment:Done [facility] Other (1 source) Flexeril *MUSCULOSKELETAL THERAPY AGENTS* Propensity to adverse reactions Comment:Rash [facility] Other (1 source) Darvocet A500 *ANALGESICS - OPIOID* Propensity to adverse reactions Unknown [facility] Other (8 sources) Acetaminophen Drug Allergy 11-07-19 24 Itching [facility] (8 sources) Propoxyphene Drug Allergy 06-10-20 09 Itching [facility] (1 source) Darvocet A500 *ANALGESICS - OP Allergy to substance 12-16-19 Unknown Reaction [facility] (1 source) stimulants Propensity to adverse reactions 06-18-20 Unknown Reaction [facility] (1 source) sugar Propensity to adverse reactions 06-18-20 19 Unknown Reaction [facility] (7 sources) Okwmh-Kqjfqll-Hldt ch Drug Intolerance 06-18-20 19 Other [facility] Medications Current Medications Medication Drug Class(es) Dates Sig (Normalized) Sig (Original) aspirin 81 mg chewable tablet (15 sources) Platelet Aggregation Inhibitor, Nonsteroidal Anti-inflammatory Drug Start: 06-18-2019 take 81 mg by mouth once daily Aspirin Active 81 MG PO Daily June 18, 2019 1:00am take 1 tablet by supa th every twenty-four hours Aspirin 81 81 MG 1 tablet Orally Once a day Active Aspirin 81 Activ e atorvastatin 10 mg oral tablet (16 sources) HMG-CoA Reductase Inhibitor Start: 12-16-2023 take [...] a day Active Atorvastatin Sundeep cium Active Calcium Carbonate-Vit D-Min (Calcium 1200) 6676-1642 MG-UNIT chewable tablet (3 sources) Start: 05-16-2023 End: 05-15-2024 Calcium Carbonate-Vit D-Min (Calcium 1200) 5333-3323 MG-UNIT chewable tablet Indications: Osteopenia, unspecified location Chew 1,200 mg in the morning. 30 tablet 11 05/16/2023 05/15/2024 Active lisinopril 5 mg oral tablet (20 sources) Angiotensin Converting Enzyme Inhibitor Start: 12-16-2023 [...] Fluticasone Propionate (Flonase Allergy Relief) 50 mcg/actuation [place],Suspension Discontinued 2 SPRAY INTRANASAL Daily June 18, 2019 1:00am June 23, 2022 8:20am oxymetazoline hydrochloride 0.5 mg/ml nasal spray (1 source) Start: 06-18-2019 End: 06-18-2019 Oxymetazoline (Afrin (Oxymetazoline)) 0.05 % [place],Non-Aerosol Discontinued 2 SPRAY INTRANASAL Q12H June 18, [...] admission (1 source) Informing health family day care provider of test result; Translations: [Person consulting for [...] Benign neoplasm of descending colon Episodic Other circulatory disease (2 sources) Peripheral vascular disease; Translations: [Other specified peripheral vascular diseases] 03-06-2024 Chronic Other congenital anomalies (1 source) Congenital spondylolysis [...] Onset: 07-31-2018 Chronic Other nervous system disorders (2 sources) Neuroma; Translations: [Other specified mononeuropathies] 03-06-2024 Chronic Other nervous system disorders (1 source) [...] and due to atherosclerosis; Translations: [Atherosclerosis of [place] arteries of extremities with intermittent claudication, bilateral [...] bone density and structure, unspecified site; Translations: [OTH D/O BONE DEN STRUCT UNS SITE] Onset: [...] in left finger(s)] Onset: 05-25-2017 Episodic Other connective tissue disease (2 sources) Pain in both feet; Translations: [Pain in right foot] 03-06-2024 Episodic Other ear and sense organ disorders (1 source) Disorder of external ear; Translations: [Unspecified disorder of external ear] Onset: 03-28-2017 Episodic Other injuries and conditions due to external causes (1 source) History of fall; Translations: [History of falling] Resolved: 07-01-2020 Episodic Other lower respiratory disease (4 sources) Other nonspecific abnormal finding of lung field; Translations: [OTH NONSPECIFIC ABN FIND LNG FIELD] Onset: 01-16-2022 [...] Test Name Value Interpretation Reference Range Facility IGP,APTIMA HPV,AGE GDLNon AGE GDLN ACOG TESTING Note . [facility] Comment on above: TESTS RESULT FLAG UN ITS REF RANGE LAB Clinician Provided Cytology Information Source.............Vagina No. of containers..01 ThinPrep Vial Age Algo ACOG Deja... 30-65 01 FLAG LEGEND: L-Low Normal,H-High Normal,LL-Alert Low,HH-Alert High <-Panic Low,>-Panic High,A-Abnormal,AA-Critical Abnormal Performed at: 01 =G [address] [place] [address] Armida Arechiga MD, HPV APTIMA Negative Negative [facility] Comment on above: This nucleic acid am plification test detects fourteen high- risk HPV types (16,18,31,33,35,39,45,51,52,56,58,59,66,68) without differentiation. Performed at: = - [address] [id number] Financial Project Manager: Armida Arechiga MD, Phone: [phone] [facility]formed [facility]: [facility] [id number] Financial Project Manager: Armida Arechiga MD, Phone: [phone] IGP, APTIMA HPV, RFX 16/18,45 Note . [facility] Comment on above: TESTS RESULT FLAG UN ITS REF RANGE LAB DIAGNOSIS: 02 NEGATIVE FOR INTRAEPITHELIAL LESION OR MALIGNANCY. CELLULAR CHANGES ASSOCIATED WITH ATROPHY ARE PRESENT. Specimen adequacy: 02 Satisfactory for evaluation. Endocervical component may not be distinguished in cases of atrophy. Performed by: Germain Mathur, Director Of Accreditation (ASCP) . 02 Note: Note 02 The Pap smear is a screening test designed to aid in the detection of premalignant and malignant conditions of the uterine cervix. It is not a diagnostic procedure and should not be used as the sole means of detecting cervical cancer. Both false-positive and false-negative reports do occur. Test Methodology: Note 02 This liquid based ThinPrep(R) pap test was screened with the use of an image guided system. HPV Genotype Reflex Note 02 Criteria not met, HPV Genotype not performed. FLAG LEGEND: L-Low Normal,H-High Normal,LL-Alert Low,HH-Alert High <-Panic Low,>-Panic High,A-Abnormal,AA-Critical Abnormal Performed at: [address] [address] Armida Arechiga MD, SPATULA-ALONE VAGINA [facility] Urinalysis macro (dipstick) panel (U)on 05-21-2024 Bilirubin, UA Negative Negative - 4(70) +++ mg/dL [facility] Blood, UA Positive Negative - 50 Zachary/mcL [facility] Comment on above: trace Clarity, UA Clear [facility] Color, UA Yellow [facility] Glucose, UA Negative Negative - 1999(110) ++++ mg/dL [facility] Interpretation and review of laboratory results Abnormal [facility] Ketones, UA Negative Negative - 160(16) ++++ mg/dL [facility] Leukocytes, UA Negative Negative - 500+++ Phu/mcL [facility] Nitrite, UA Negative Negative - Positive [facility] pH, UA 5.5 5 - 9 [facility] Protein, UA Negative Negative - 2000(20) ++++ mg/dL [facility] Spec Grav, UA 1.015 1 - 1.03 [facility] Urobilinogen, UA 0.2 0.2 - 12 mg/dL [facility] Cytology Cervical or vaginal smear or scraping studyon 05-16-2023 [facility] HERPES SIMPLEX VIRUS (HSV) C ULTUREon 07-22-2022 HSV Culture/Type Comment Abnormal [facility] Comment on above: Result Comment: 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 Typing was confirmed by monoclonal antibody microscopic immunofluorescence. Performed By: #### H SVCUL #### [facility] [address] [address] [address] Jessica Sainz Covid-19 PCR ([facility])on SARS-CoV-2 (COVID-19) RNA JANCIE+probe Ql (Unsp spec) Not detected Normal NOT DETECTED [facility] Comment on above: Result Comment: This test is not yet approved or cleared by the [place] FDA. When there are no FDA-approved or cleared tests available, and other criteria are met, FDA can make tests available under an emergency access mechanism called an Emergency Use Authorization (EUA). The EUA for this test is supported by the Office Coordinator of Health and Human Service's (HHS's) declaration [...] SARS-CoV-2. Performed By: #### C [facility] #### [facility] [address] [place] [address] Dr. Jessica Sainz XR CSPINE 2_3 VIEWSon [...] ELMER ANTOINE Date: 2022-05-16 11:55 Normal [facility] XR DEXA BONE DENSITYon 05-12 XR DEXA [...] GAMA MI Date: 2022-05-12 06:51 Normal [facility] MAMM SCREEN 3D ARNOLDO CADon 05-11-2022 MG MAMM SCREEN 3D ARNOLDO CAD Patient: CANDELARIA FOSTER Exam Date: 05/11/2022 : 1960 Gender:F Ordering : DR SHARMAINE CHAUDHARI . Admission #: [id number] Family : Order #: [id number] CLICK HERE TO VIEW EXAM RADIOLOGY REPORT [...] Treatments None Family Cancers None LOCATION: [facility] BREAST COMPOSITION: Scattered areas fibroglandular density. FINDINGS: [...] Antoine MD on 05/12/2022 at 08:59 Normal [facility] XR CHEST 2 Von 05-11-2022 XR [...] GIN DYSON Date: 2022-05-11 19:50 Normal [facility] XR HIP LT 2 3V W PELVISon [...] by: ZIGGY YADAV Date: 2022-05-11 18:01 Normal [facility] PAP ACOG PANEL 2: 30 to 65on 04-30-2022 . . Normal [facility] Comment on above: Result Comment: Perf ormed at: WB Performed By: #### [id number] #### [facility] [address] [address] [address] Jessica Sainz Age Gdln ACOG Testing 30-65 Normal [facility] Comment on above: Performed By: #### [id number] #### [facility] [address] [address] [address] Jessica Sainz DIAGNOSIS: Comment Normal [facility] Comment on above: Result Comment: NEGA TIVE FOR INTRAEPITHELIAL LESION OR MALIGNANCY. CELLULAR CHANGES ASSOCIATED WITH ATROPHY ARE PRESENT. Performed at: WB Performed By: #### [id number] #### [facility] [address] [address] [address] Jessica Sainz HPV Aptima Negative Normal Negative [facility] Comment on above: Result Comment: This nucleic acid amplification test detects fourteen high-risk HPV types (16,18,31,33,35,39,45,51,52,56,58,59,66,68) without differentiation. Performed at: =G Performed By: #### [id number] #### [facility] [address] [address] [address] Jessica Sainz HPV Genotype Reflex Comment Normal [facility] Comment on above: Result Comment: Crit eria not met, HPV Genotype not performed. Performed at: WB Performed By: #### [id number] #### [facility] [address] [place] [address] Dr. Jessica Sainz Methodology: Comment Normal [facility] Comment on above: Result Comment: This liquid based ThinPrep(R) pap test was screened with the use of an image guided system. Performed at: WB Performed By: #### [id number] #### [facility] [address] [place] [address] Dr. Jessica Sainz Note: Comment Normal [facility] Comment on above: Result Comment: The Pap smear is a screening test designed to aid in the detection of premalignant and malignant conditions of the uterine cervix. It is not a diagnostic procedure and should not be used as the sole means of detecting cervical cancer. Both false-positive and false-negative reports do occur. . Performed at: WB Performed By: #### [id number] #### [facility] [address] [place] [address] Dr. Jessica Sainz Performed by: Comment Normal [facility] Comment on above: Result Comment: Yi Osborn, Director Of Accreditation (ASCP) Performed at: WB Performed By: #### [id number] #### [facility] [address] [place] [address] Dr. Jessica Sainz Specimen adequacy: Comment Normal [facility] Comment on above: Result Comment: Sati sfactory for evaluation. Endocervical component may not be distinguished in cases of atrophy. Performed at: WB Performed By: #### [id number] #### [facility] [address] [place] [address] CHEST WO CONon [...] by: GAMA MI Date: 2022-01-17 09:30 Normal [facility] XR CHEST COMP MIN 4Von 01-07 [...] by: ELMER ANTOINE Date: 2022-01-07 07:18 Normal [facility] CBC AUTO DIFFon 12-08-2021 BASO # 0.1 103/ul Normal 0.0-0.1 [facility] Comment on above: Performed By: #### C CBFS #### [facility] [address] [place] [address] Dr. Jessica Sainz Basophils/100 WBC (Bld) 1.7 % Normal 0.2-2.0 [facility] Comment on above: Performed By: #### C CBFS #### [facility] [address] [place] [address] Dr. Jessica Sainz EO # 0.5 103/ul Normal 0.0-0.7 [facility] Comment on above: Performed By: #### C CBFS #### [facility] [address] [place] [address] Dr. Jessica Sainz Eosinophils/100 WBC (Bld) 7.9 % Critically high 0.9-7.0 [facility] Comment on above: Performed By: #### C CBFS #### [facility] [address] [place] [address] Dr. Jessica Sainz Erythrocyte distribution width (RBC) [Ratio] 13.9 % Normal 11.0-15.0 [facility] Comment on above: Performed By: #### C CBFS #### [facility] [address] [place] [address] Dr. Jessica Sainz Hematocrit (Bld) [Volume fraction] 41.7 % Normal 36.0-48.0 [facility] Comment on above: Performed By: #### C CBFS #### [facility] [address] [place] [address] Dr. Jessica Sainz Hemoglobin (Bld) [Mass/Vol] 13.0 g/dL Normal 12.0-16.0 [facility] Comment on above: Performed By: #### C CBFS #### [facility] [address] [place] [address] Dr. Jessica Sainz IG # 0.01 10e3/ul Normal 0.00-0.03 [facility] Comment on above: Performed By: #### C CBFS #### [facility] [address] [place] [address] Dr. Jessica Sainz IG % 0.2 % Normal 0.0-0.5 [facility] Comment on above: Performed By: #### C CBFS #### [facility] [address] [place] [address] Dr. Jessica Sainz LYMPH # 1.5 103/ul Normal 1.2-3.8 [facility] Comment on above: Performed By: #### C CBFS #### [facility] [address] [place] [address] Dr. Jessica Sainz Lymphocytes/100 WBC (Bld) 25.4 % Normal 20.5-60.0 [facility] Comment on above: Performed By: #### C CBFS #### [facility] [address] [place] [address] Dr. Jessica Sainz MANUAL DIFF REQ NO Normal [facility] Comment on above: Performed By: #### C CBFS #### [facility] [address] [place] [address] Dr. Jessica Sainz MCH (RBC) [Entitic mass] 27.4 pg Normal 26.7-34.0 [facility] Comment on above: Performed By: #### C CBFS #### [facility] [address] [place] [address] Dr. Jessica Sainz MCHC (RBC) [Mass/Vol] 31.2 g/dL Normal 29.9-35.2 [facility] Comment on above: Performed By: #### C CBFS #### [facility] [address] [place] [address] Dr. Jessica Sainz MCV (RBC) [Entitic vol] 87.8 fL Normal 81.0-99.0 [facility] Comment on above: Performed By: #### C CBFS #### [facility] [address] [place] [address] Dr. Jessica Sainz MONO # 0.5 103/ul Normal 0.3-0.8 [facility] Comment on above: Performed By: #### C CBFS #### [facility] [address] [place] [address] Dr. Jessica Sainz Monocytes/100 WBC (Bld) 8.1 % Normal 1.7-12.0 [facility] Comment on above: Performed By: #### C CBFS #### [facility] [address] [place] [address] Dr. Jessica Sainz NEUT # 3.3 103/ul Normal 1.4-6.5 [facility] Comment on above: Performed By: #### C CBFS #### [facility] [address] [place] [address] Dr. Jessica Sainz Neutrophils/100 WBC (Bld) 56.7 % Normal 43.0-75.0 [facility] Comment on above: Performed By: #### C CBFS #### [facility] [address] [place] [address] Dr. Jessica Sainz Platelet mean volume (Bld) [Entitic vol] 9.7 fL Normal 9.5-13.5 [facility] Comment on above: Performed By: #### C CBFS #### [facility] [address] [place] [address] Dr. Jessica Sainz PLT 266 103/ul Normal 150-450 [facility] Comment on above: Performed By: #### C CBFS #### [facility] [address] [place] [address] Dr. Jessica Sainz RBC 4.75 106/ul Normal 4.20-5.40 [facility] Comment on above: Performed By: #### C CBFS #### [facility] [address] [place] [address] Dr. Jessica Sainz WBC 5.8 103/ul Normal 4.0-11.0 [facility] Comment on above: Performed By: #### C CBFS #### [facility] [address] [place] [address] Dr. Jessica Sainz LIPID PROFILEon 12-08-2021 CHOL-HDL RATIO NORM SEE BELOW Normal [facility] Comment on above: Result Comment: 3.3 - 4.4 LOW RISK 4.4 - 7.1 AVERAGE RISK 7.1 - 11.0 MODERATE RISK >11.0 HIGH RISK Performed By: #### H SVCUL #### [facility] [address] [place] [address] Dr. Jessica Sainz Cholesterol [Mass/Vol] 208 mg/dL Critically high <=200 [facility] Comment on above: Performed By: #### H SVCUL #### [facility] [address] [address] [address] Jessica Sainz Cholesterol in HDL [Mass/Vol] 63 mg/dL Critically high 40-60 [facility] Comment on above: Performed By: #### H SVCUL #### [facility] [address] [address] [address] Jessica Sainz Cholesterol in LDL [Mass/Vol] 122.8 mg/dL Normal [facility] Comment on above: Performed By: #### H SVCUL #### [facility] [address] [address] [address] Jessica Sainz Cholesterol.total /Cholesterol in HDL [Mass ratio] 3.3 {ratio} Normal [facility] Comment on above: Performed By: #### H SVCUL #### [facility] [address] [address] [address] Jessica Sainz HDL NORMAL > or = 60 mg/dl - LO W CARDIOVASCULAR RISK <40 mg/dl - HIGH CARDIOVASCULAR RISK Normal [facility] Comment on above: Performed By: #### H SVCUL #### [facility] [address] [address] [address] Jessica Sainz LDL CALC NORMAL SEE BELOW Normal [facility] Comment on above: Result Comment: <100 mg/dl OPTIMAL 100 - 129 mg/dl NEAR OR ABOVE OPTIMAL 130 - 159 mg/dl BORDERLINE HIGH 160 - 189 mg/dl HIGH >190 mg/dl VERY HIGH Performed By: #### H SVCUL #### [facility] [address] [address] [address] Jessica Sainz Triglyceride [Mass/Vol] 111 mg/dL Normal <=150 [facility] Comment on above: Performed By: #### H SVCUL #### [facility] [address] [address] [address] Jessica Sainz VLDL CALC 22.2 mg/dL Normal [facility] Comment on above: Performed By: #### H SVCUL #### [facility] [address] [address] [address] Jessica Sainz PROF 14(COMP METB)on 022 Albumin [Mass/Vol] 4.0 g/dL Normal 3.4-5.0 [facility] Comment on above: Performed By: #### H SVCUL #### [facility] [address] [place] [address] Dr. Jessica Sainz Albumin/Globulin [Mass ratio] 1.0 {ratio} Normal [facility] Comment on above: Performed By: #### H SVCUL #### [facility] [address] [place] [address] Dr. Jessica Sainz ALP [Catalytic activity/Vol] 111 U/L Normal 46-116 [facility] Comment on above: Performed By: #### H SVCUL #### [facility] [address] [place] [address] Dr. Jessica Sainz ALT [Catalytic activity/Vol] 21 U/L Normal 14-59 [facility] Comment on above: Performed By: #### H SVCUL #### [facility] [address] [place] [address] Dr. Jessica Sainz Anion gap [Moles/Vol] 11.5 mmol/L Normal [facility] Comment on above: Performed By: #### H SVCUL #### [facility] [address] [place] [address] Dr. Jessica Sainz AST [Catalytic activity/Vol] 16 U/L Normal 15-37 [facility] Comment on above: Performed By: #### H SVCUL #### [facility] [address] [place] [address] Dr. Jessica Sainz Bilirubin [Mass/Vol] 0.4 mg/dL Normal 0.2-1.0 [facility] Comment on above: Performed By: #### H SVCUL #### [facility] [address] [place] [address] Dr. Jessica Sainz Calcium [Mass/Vol] 9.2 mg/dL Normal 8.5-10.1 [facility] Comment on above: Performed By: #### H SVCUL #### [facility] [address] [place] [address] Dr. Jessica Sainz Chloride [Moles/Vol] 102 mmol/L Normal 98-107 [facility] Comment on above: Performed By: #### H SVCUL #### [facility] [address] [address] [address] Jessica Sainz CO2 [Moles/Vol] 29.8 mmol/L Normal 21.0-32.0 [facility] Comment on above: Performed By: #### H SVCUL #### [facility] [address] [address] [address] Jessica Sainz Creatinine [Mass/Vol] 0.62 mg/dL Normal 0.55-1.02 [facility] Comment on above: Performed By: #### H SVCUL #### [facility] [address] [address] [address] Jessica Sainz EGFR-AF [place] >60 Normal >=60 [facility] Comment on above: Performed By: #### H SVCUL #### [facility] [address] [address] [address] Jessica Sainz EGFR-NON AF [place] >60 Normal >=60 [facility] Comment on above: Performed By: #### H SVCUL #### [facility] [address] [address] [address] Jessica Sainz Globulin (S) [Mass/Vol] 4.2 g/dL Normal [facility] Comment on above: Performed By: #### H SVCUL #### [facility] [address] [address] [address] Jessica Sainz Glucose [Mass/Vol] 92 mg/dL Normal 74-106 [facility] Comment on above: Performed By: #### H SVCUL #### [facility] [address] [address] [address] Jessica Sainz Potassium [Moles/Vol] 4.3 mmol/L Normal 3.5-5.1 [facility] Comment on above: Performed By: #### H SVCUL #### [facility] [address] [address] [address] Jessica Sainz Protein [Mass/Vol] 8.2 g/dL Normal 6.4-8.2 [facility] Comment on above: Performed By: #### H SVCUL #### [facility] [address] [address] [address] Jessica Sainz Sodium [Moles/Vol] 139 mmol/L Normal 136-145 [facility] Comment on above: Performed By: #### H SVCUL #### [facility] [address] [place] [address] Dr. Jessica Sainz Urea nitrogen [Mass/Vol] 16.0 mg/dL Normal 7.0-18.0 [facility] Comment on above: Performed By: #### H SVCUL #### [facility] [address] [address] [address] Jessica Sainz Urea nitrogen/Creatini ne [Mass ratio] 25.8 mg/mg Normal [facility] Comment on above: Performed By: #### H SVCUL #### [facility] [address] [place] [address] Dr. Jessica Sainz TSHon 12-08-2021 TSH 1.419 uIU/mL Normal 0.358-3.740 [facility] Comment on above: Performed By: #### H SVCUL #### [facility] [address] [place] [address] Dr. Jessica Sainz VITAMIN D 25 OHon 12-08-2021 VIT D 25-OH 39.3 ng/mL Normal [facility] Comment on above: Performed By: #### V ITAD #### [facility] [address] [place] [address] Dr. Jessica Sainz VIT D RANGES SEE BELOW Normal [facility] Comment on above: Result Comment: <20 ng/mL Vit D deficient 20 - <30 ng/mL Vit D insufficient 30 - 100 ng/mL Vit D sufficient >100 ng/mL Potential Toxicity Performed By: #### V ITAD #### [facility] [address] [place] [address] Dr. Jessica Sainz ACID FAST SMEAR AND CXon Acid Fast Culture Negative Normal [facility] Comment on above: Result Comment: No a nolan fast bacilli isolated after 6 weeks. Performed By: #### H SVCUL #### [facility] [address] [address] [address] Jessica Sainz Acid Fast Smear Negative Normal [facility] Comment on above: Performed By: #### H SVCUL #### [facility] [address] [place] [address] Dr. Jessica Sainz AFB Specimen Processing Direct Inoculation Normal [facility] Comment on above: Performed By: #### H SVCUL #### [facility] [address] [address] [address] Jessica Sainz FUNGAL CULTUREon 11-10-2021 Fungus (Mycology) Culture Final report [facility] Comment on above: Performed By: #### C CBFS #### [facility] [address] [place] [address] Dr. Jessica Sainz Fungus Stain Final report [facility] Comment on above: Performed By: #### C CBFS #### [facility] [address] [place] [address] Dr. Jessica Sainz Result 1 Comment Normal [facility] Comment on above: Result Comment: JOJO/ Calcofluor preparation: no fungus observed. Performed By: #### C CBFS #### [facility] [address] [place] [address] Dr. Jessica Sainz Result Comment: No y east or mold isolated after 4 weeks. BODY FLUID CULTUREon 022 Anaerobic Culture, Extended Incubation Final report [facility] Comment on above: Performed By: #### H SVCUL #### [facility] [address] [place] [address] Dr. Jessica Sainz Body Fluid Culture, Sterile Final report Normal [facility] Comment on above: Performed By: #### H SVCUL #### [facility] [address] [place] [address] Dr. Jessica Sainz Result 1 Comment Normal [facility] Comment on above: Result Comment: No g rowth in 56 - 72 hours. Performed By: #### H SVCUL #### [facility] [address] [place] [address] Dr. Jessica Sainz Result Comment: No a naerobes recovered. No anaerobic growth after 14 days LAB DAVID MISC TESTon 022 Referral Lab Comment Normal [facility] Comment on above: Result Comment: [employer] Performed By: #### L CMISC #### [facility] [address] [place] [address] Dr. Jessica Sainz Referral Test Code or Mnemonic Comment Normal [facility] Comment on above: Result Comment: 2002 Performed By: #### L CMISC #### [facility] [address] [place] [address] Dr. Jessica Sainz Referral Test Name Comment Normal [facility] Comment on above: Result Comment: RHEU MATOID FACTOR Performed By: #### L CMISC #### [facility] [address] [place] [address] Dr. Jessica Sainz Referral Test Results Comment Normal [facility] Comment on above: Result Comment: Refe rence lab report sent via fax. Performed By: #### L CMISC #### [facility] [address] [place] [address] Dr. Jessica Sainz PH, BODY FLUIDon 10-15-2021 pH, Body Fluid 7.6 Normal Not Estab. [facility] Comment on above: Result Comment: The reference interval(s) and other method performance specifications have not been established for this body fluid. The test result must be integrated into the clinical context for interpretation. Performed By: #### B DYFLPH #### [facility] [address] [place] [address] Dr. Jessica Sainz AMYLASE, BODY FLUIDon 2021 Amylase [Catalytic activity/Vol] 40 U/L Normal [facility] Comment on above: Result Comment: ____ : BODY FLUID TYPE : AMYLASE : : : : : Lymph : 50 - 83 : : : : : Peritoneal : : : Fluid : 88 - 109 : : : : : Saliva : : : (Mixed Glands) : [id number] - [id number] : : : : . [place] W, Cher V. Reference Intervals for Adults and Children 2008. Ninth Edition (V9.1) [employer], [facility]; [place]: December 2008. The method performance specifications have not been established for this test in body fluid. The test result should be integrated into the clinical context for interpretation. Performed By: #### H SVCUL #### [facility] [address] [place] [address] Dr. Jessica Sainz CELL COUNT BODY FLUIDon 09-25 Clarity, Serous Clear Normal Clear [facility] Comment on above: Performed By: #### C CBFS #### [facility] [address] [place] [address] Dr. Jessica Sainz Color, Serous Straw Normal [facility] Comment on above: Result Comment: Sneads rless to Pale Yellow/Straw Performed By: #### C CBFS #### [facility] [address] [place] [address] Dr. Jessica Sainz Comments: Normal [facility] Comment on above: Performed By: #### C CBFS #### [facility] [address] [address] [address] Jessica Sainz Eosinophils/100 WBC (Bld) 8 % Normal Not Estab. [facility] Comment on above: Performed By: #### C CBFS #### [facility] [address] [place] [address] Dr. Jessica Sainz Lining Cells, Serous Normal [facility] Comment on above: Performed By: #### C CBFS #### [facility] [address] [address] [address] Jessica Sainz Lymphocytes/100 WBC (Bld) 27 % Normal Not Estab. [facility] Comment on above: Performed By: #### C CBFS #### [facility] [address] [address] [address] Jessica Sainz Macrophages, Serous 39 % Normal Not Estab. [facility] Comment on above: Performed By: #### C CBFS #### [facility] [address] [address] [address] Jessica Sainz Nucleated Cells, Serous 1586 /mm3 Critically high 0-499 [facility] Comment on above: Result Comment: Pleu ral Fluid, with <1000 Nucleated cells/uL has been associated with transudates while >1000 uL may be seen in exudates. Performed By: #### C CBFS #### [facility] [address] [place] [address] Dr. Jessica Sainz Polys, Serous 26 % Critically high 0-24 [facility] Comment on above: Performed By: #### C CBFS #### [facility] [address] [address] [address] Jessica Sainz RBC, Serous Rare Normal Not Estab. [facility] Comment on above: Performed By: #### C CBFS #### [facility] [address] [place] [address] Dr. Jessica Sainz GLUCOSE BODYFLUIDon 10-14-19 22 Glucose, Body Fluid 91 mg/dL Normal [facility] Comment on above: Result Comment: ____ [...] Reference Intervals for Adults and Children 2008. [facility] edition (V9.1) [employer], [facility]; [place]: December 2008. The reference intervals and other method performance specifications have not been established for this test. The test result should be integrated into the clinical context for interpretation. Performed By: #### B FGLUC #### [facility] [address] [place] [address] Dr. Jessica Sainz LACTIC ACID DEHYDROGENASE (L D), BODY FLUon 10-13-2021 LD, Body Fluid 220 IU/L Normal [facility] Comment on above: Result Comment: [...] 2007. Ninth Edition (V9.1) [employer], [facility]; [place]: December 2008. The reference intervals and other method performance specifications have not been established for this test. The test result should be integrated into the clinical context for interpretation. Performed By: #### C CBFS #### [facility] [address] [place] [address] Dr. Jessica Sainz PROTEIN, TOTAL, BODY FLUIDon 10-13-2021 Protein, Body Fluid 4.4 g/dL Normal [facility] Comment on above: Result Comment: ____ : [...] 2007. Ninth Edition (V9.1) [employer], [facility]; [place]: December 2008. The method performance specifications have not been established for this test in body fluid. The test result should be integrated into the clinical context for interpretation. Performed By: #### T PBF #### [facility] [address] [address] [address] Jessica Sainz CYTOLOGYon 2021 SENT TO REF LAB 2021 Normal [facility] Comment on above: Performed By: #### C YTO #### [facility] [address] [address] [address] Jessica Sainz XR CHEST 1 Von [...] GAMA MI Date: 2021 10:58 Normal [facility] CHEST WO CONon 09-30-2021 CT CHEST [...] by: GAMA [place] Date: 2021-09-30 16:57 Normal [facility] 11-18-2017 CNPN Telephone (GYNML) ------KRISTINCANDELARIA ([id number]) 1960 FDate Time Provider Department11/18/17 KARINA WILLIS (RN) GYN During your visit today, we recorded the [...] medical team for review and adviseMary TREMAYNE Cehung.ETL ANALYST 11/18/2017 1:04 PM SignedPatients commonly experience an [...] Status:Closed by JENNA CHEUNG CNP on 11/18/17 [facility] ANES Darek 11-03-2017 ANES POST HNO ID: [id number] thor: Delisa Henderson AService: AnesthesiologyAuthor Type: AnesthesiologistType: [...] 03, 2017 : 9:31 AM PAGER/CONTACT #: [facility] ANES PREOPon 11-03-2017 ANES PREOP HNO ID: [id number] thor: Delisa Henderson AService: AnesthesiologyAuthor Type: AnesthesiologistType: Anesthesia PreOpFiled: 11/03/2017 8:03 AMNote Text:REGIONAL ANESTHESIOLOGY DAY OF SURGERY NOTEPATIENT NAME: Candelaria FosterMRN: [id number]: 1960Procedure(s) (LRB):VULVECTOMY PARTIAL SIMPLE (Left)Surgeon(s):Tamia TorresEstimated body [...] arteries- HYSTERECTOMY HX- PAST SURGICAL HISTORY OF [place] Teeth Extraction- PAST SURGICAL HISTORY OF [facility] on scalpFAMILY HISTORYProblem Relation Age of Onset- Heart Father d. @ 42 of [place]- Heart Paternal Grandfather d. @ 45 of [place]- Heart Brother Cardiac Stent Placement- Heart Sister- [...] directed every 24 hours.Inpatient medications reviewed in [facility].I have interviewed and examined the patient. I have reviewed the medicalrecord and/or the pre-anesthesia evaluation, pertinent labs, and testresults.Significant changes in the patient's condition since the History andPhysical, not otherwise documented in primary service progress notes: NoThis contains updated information obtained within 48 hours ofSurgery/Procedure.SIGNATU RE: Mikal Ferrer CRNA PATIENT NAME: Candelaria FosterDATE: November 03, 2017 : 7:18 AM PAGER/CONTACT #:Attending Note:Batres findings confirmed. Patient examined. Discussed with the MANGLE ROLL OPERATOR andthe patient. Plan as outlined.ab Donny Lee 20178:03 AM [facility] BRIEF OP NOTon 11-03-2017 BRIEF OP NOT HNO ID: [id number] thor: Jorge Brennan: Gynecology OncologyAuthor Type: PhysicianType: Brief Op NoteFiled: 11/03/2017 8:24 AMNote Text:BRIEF OP NOTELOG ID: [id number]/Procedure Date: 11/03/2017Incision/Procedure Start Time: 8:04 AMIncision Close/Procedure End Time: 8:18 AMSurgeon(s)/Proceduralist( s) and Driver Trainee(s):Surgeon(s) and Role: * Tamia Torres - Primary [...] 03, 2017 : 8:22 AM PAGER/CONTACT #: [facility] HISTORY PHYSICALon 8 HISTORY PHYSICAL HNO ID: [id number] thor: Clair Diaz (Res)Service: Gynecology OncologyAuthor Type: [...] November 03, 2017 : 7:30 AM PAGER: [phone] [facility] NURSING PROGon 11-03-2017 NURSING PROG HNO ID: [id number] thor: Elma Frazier (Rn), RNService: NursingAuthor Type: Registered NurseType: Nursing Progress NoteFiled: 11/03/2017 8:42 AMNote Text: Nursing Progress NotePatient Name: Candelaria FosterMRN: [id number] Location: [facility] OR POOL/[facility] OR POOL 0828 Pt arrived from OR and attached to PACU monitor. Assessmentcompleted see assessment section. No signs of bleeding noted.This note was completed by: Elma Frazier RN [facility] OPERATIVE NOon 11-03-2017 OPERATIVE NO HNO ID: [id number] thor: Thang Torres: Gynecology OncologyAuthor Type: PhysicianType: Operative ReportFiled: 11/04/2017 1:12 PMNote Text:OPERATIVE/PROCEDURE REPORTLOG ID: [id number]/PROCEDURE DATE: 11/03/2017INCISION/PROCEDURE START TIME: 8:04 AMINCISION CLOSE/PROCEDURE END TIME: 8:18 AMSURGEON(S)/PROCEDURALIST( S) AND PARKING MANAGER(S):Surgeon(s) and Role: * Tamia Torres - Primary * Rah Brennan - Fellow * Clair (Res) Emily - Resident - AssistingNo Additional StaffSURGERY/PROCEDURE(S):E xam [...] 04, 2017 : 1:09 PM PAGER/CONTACT #: [facility] PLAN OF CAREon 11-03-2017 PLAN OF CARE HNO ID: [id number] thor: Rupesh (Food Runner)Dorinda: (none)Author Type: TechnicianType: Plan of CareFiled: 11/04/2017 9:27 AMNote Text:PHARMACY BEDSIDE DELIVERY SERVICEPatient Name: Candelaria FosterMRN: [id number] marked outpatient medications were filled and deliveredMedication [...] them or your Primary Care Provider.Iveth Goddard (Food Runner)PAGER: [phone] 2017 9:27 AM [facility] PLAN OF CARE HNO ID: [id number] thor: Rupesh HillFood Runner)Dorinda: (none)Author Type: TechnicianType: Plan of CareFiled: 11/03/2017 10:31 AMNote Text:Pharmacy Discharge Medication Service:This patient has elected to [facility] their discharge prescriptions [facility]oughthe [facility]. Theprescriptions are currently being processed. A follow-up note will beentered once the prescriptions have been filled and delivered to thepatient. Please contact me with any questions or updates to the patient'sdischarge medications.Iveth Goddard (Food Runner)DCT Contact Info: [phone] [facility] PLAN OF CARE HNO ID: [id number] thor: Rupesh (Food Runner), BrendenlyService: (none)Author Type: TechnicianType: Plan of CareFiled: 11/03/2017 10:31 AMNote Text:HANGAR ATTENDANT BEDSIDE DELIVERY SURVEY1. Patient to use [facility] Bedside Delivery - YES2. If fax, patient would like us to fax prescriptions to [facility]. Pharmacy: b. Location: c. Phone:3. Insurance card on file - YES4. Credit card for payment - N/A [facility] PT EDon 11-03-2017 PT ED HNO ID: [id number] thor: Kamla Zambrano (Rn), RNService: NursingAuthor Type: Registered NurseType: Patient EducationFiled: 11/03/2017 6:43 AMNote Text:PRE OP LEARNING ASSESSMENTPROCEDURE/SURGERY : SURGERY:READINESS TO LEARNCOGNITIVE ABILITY: Alert and orientedMOTIVATION TO LEARN: EagerFAMILY SUPPORT: Unable to assess - Family not presentPATIENT LEARNS BEST BY: Individual InstructionFACTORS AFFECTING LEARNING: NonePHYSICAL LIMITATIONS AFFECTING LEARNING: NoneElectronically Signed By: Kamla Zambrano RN In Department: [facility] SURGICAL PATHOLOGYon 018 SURGICAL PATHOLOGY [facility]: [id number] Physician: TAMIA TORRES MD FINAL DIAGNOSIS1. Right [...] 6 o'clock.TATE/shayan 11/03/2017 Gross examination performed at [facility], [address] [address] of Report: 11/08/2017Date of Procedure: 11/03/2017Date of Receipt: 11/03/2017Submitted by: TAMIA TORRES MDLocation: FVORDiagnostic interpretation performed at [address] [address]. [facility] Comment on above: Performed By: #### P ATHS ####[id number] [place] [address] NURSING PROGon 10-26-2017 NURSING PROG HNO ID: [id number] thor: Bambi (Rn) Camron, RNService: General SurgeryAuthor Type: Registered NurseType: Nursing Progress NoteFiled: 10/26/2017 4:26 PMNote Text:PACC Nurse Progress NoteHistory AND Physical:PACC Visit Date: 0-88-98Eltgbwye HANDP Date: N/AED visit Date: N/AOutside HANDP Scanned Date: N/ALabs Within Last 6 Months:CBC: Date 10-19-17BMP/CMP: Date 2-79-72Cweorzj Within Last 12 Months:N/ACardiac Testing:EKG in last 12 Months: Yes: Date: 10-19-17, Comment: Confirmed in EPIC.Last Menstrual Period:LMP Date: UnknownPostmenopausal >1yr: Yes,S/P Hysterectomy: YesBMI Percentile (PEDS):N/ARisk Assessment:N/AAnesthesia Review:N/ANarrative:N/APre- op Considerations:N/AChart Check:Juventino Lyon RNMay 2017 4:25 PM [facility] HOSPon 10-05-2017 HOSP Patient:Sumi Foster LMRN: [...] 3.7HEMA* 43.3 % 10/19/2017 46.0 36.0Progress Notes (CABIN AGENT [facility]):Aleena Cuenca (Rn), RN 10/31/2017 3:20 [...] clean and dry.Advised I would discuss with ETL ANALYST and call her backShe also states that [...] RN 11/01/2017 4:33 PM SignedInformed pt of ETL ANALYST's message to go ahead and use prep [...] use cortizone creamthere.Will update medical teamGalina Dowell (Automotive Glass Mechanic) 11/02/2017 3:08 PM SignedWould not advise any creams in anticipation of procedure for tomorrowThNano Bentley (Rn), RN 11/02/2017 3:49 PM SignedLeft vm for patient in regards to message below.Progress Notes (CABIN AGENT [facility]):Aleena Cuenca (Rn), RN 10/26/2017 1:57 PM SignedLeft vm for pt to call office to discuss pre-op instructions prior to surgerywith Dr. Torres on 11/03/17Will awaNimco Elizabeth RN 10/27/2017 4:00 PM SignedPatient returning call for pre op instructions.Procedure: VULVECTOMY PARTIAL SIMPLEPhysician: Tamia TorresLocation: [facility]: [phone] AND Time: 11/03/2017MEDICAL CLEARANCE: No CARDIAC CLEARANCE: NoPRE ADMISSION TESTIN10/19/17 AT: [facility]): [phone] FOLLOWING WAS EVALUATED Motivation To Learn: Interested [...] Celebrex MotrinAggrenox Clinoril Naprosyn(naproxen)Agrylin NSAIDS Pepto-BismolAleve Ecotrin PersantineAlka-Tabernash Excedrin PlaquenilAnacin Heparin PlavixAscriptin Herbals PletalAspergum Ibuprofen [...] - IV pain medication after surgery, IV PRUNE WASHER if ordered by MD,discharged home with a prescription for PO pain medication, pain managementafter surgery, side effects of pain medication (including constipation,dizziness, drowsiness, and medication interactions).DVT PROPHYLAXIS - Early ambulation, SCDs, injectable anticoagulants (heparin,lovenox, etc)RESPIRATORY - Incentive spirometer, coughing/deep breathing exercises,ambulation.RETURN TO WORK - As directed by physician, please send any [facility] papers topsician's secretary to the vice president.SYMPTOMS TO NOTIFY MD - Fever, chills, nausea, vomiting, increased or severepain, heavy vaginal bleeding, foul smelling vaginal drainage, pain or swellingin extremities.URGENT SYMPTOMS - Call 911 or go to ER if any shortness of breath, difficultybreathing, or chest pain.HOW TO CONTACT PHYSICIAN - Physician's office phone number given to patient, ifafter hours patient instructed to call head operator sulfide and ask for the doctor plant operations worker.Patient and family have phone number to call 24 hours/day.Patient Evaluation: Verbalizes understandingPatient and/or family express understanding of upcoming surgery and theoperative process. Questions answered.Follow Up Plan: Follow up as neededSupplemental Material Given:Pre-operative teaching packet provided to the patient:INPATIENT/OUTPATIEN T printed instructions; Post-operative instruction sheet,bowel prep instruction sheetFor questions contact: Tamia Torres's office at [phone] By Nimco Garza RN [facility] Vital Signs Date Time Vital Sign Value Performing Clinician Facility 05-21-2024 10:44-0500 Body mass index (BMI) [Ratio] 26.43 kg/m2 Nimco LIANG Work Phone: [facility] 05-21-2024 10:44-0500 Body weight 69.85 kg Nimco LIANG Work Phone: [facility] 05-21-2024 10:44-0500 Diastolic blood pressure 70 mm[Hg] Nimco LIANG Work Phone: [facility] 05-21-2024 10:44-0500 Systolic blood pressure 124 mm[Hg] Nimco LIANG Work Phone: [facility] 12-16-2023 11:27-0400 Body height 157.48 cm [facility] 12-16-2023 11:27-0400 Body mass index (BMI) [Ratio] 27.3 kg/m2 [facility] 12-16-2023 11:27-0400 Body weight 67.75 kg [facility] 12-16-2023 11:27-0400 Diastolic blood pressure 81 mm[Hg] [facility] 12-16-2023 11:27-0400 Heart rate 75 /min [facility] 12-16-2023 11:27-0400 Respiratory rate 12 /min [facility] 12-16-2023 11:27-0400 Systolic blood pressure 143 mm[Hg] [facility] 12-14-2022 11:00-0400 Body height 156.21 cm Clint Defywire Other [employer] Other 12-14-2022 11:00-0400 Body mass index (BMI) [Ratio] 28.25 kg/m2 Clint Ball Other [employer] Other 12-14-2022 11:00-0400 Body weight 68.95 kg Clint Ball Other [employer] Other 12-14-2022 11:00-0400 Diastolic blood pressure 73 mm[Hg] Clint Defywire Other [employer] Other 12-14-2022 11:00-0400 Respiratory rate 12 /min Clint Defywire Other [employer] Other 12-14-2022 11:00-0400 Systolic blood pressure 112 mm[Hg] Clint Defywire Other [employer] Other Encounters Encounter Date Encounter Type Care Provider Facility Start: 05-21-2024 End: 05-21-2024 Bamboo flowsheet Nimco LIANG Work Phone: [facility] Start: 05-21-2024 End: 05-30-2024 Bamboo flowsheet Nimco LIANG Work Phone: [facility] Start: 05-21-2024 End: 05-30-2024 Clinisync Result Encounter Nimco LIANG Work Phone: [facility] External Department Unsolicited Start: 05-21-2024 End: 05-21-2024 Patient encounter procedure Nimco LIANG Work Phone: [facility] Start: 05-21-2024 End: 05-21-2024 Periodic preventive med est patient 40-64yrs Nimco LIANG Work Phone: [facility] Comment on above: Well woman exam with routine gynecological exam; H/O: hysterectomy; Breast cancer screening by mammogram; Osteoporosis, post-menopausal (CMS/HCC); Urinary tract infection without hematuria, site unspecified Start: 05-21-2024 End: 05-21-2024 ambulatory NIMCO TRIMBLE Not Available Start: 03-06-2024 End: 03-06-2024 Bamboo flowsheet Chay Alejandre DPM Work Phone: [facility] Start: 03-06-2024 End: 03-06-2024 Bamboo flowsheet Chay Alejandre DPM Work Phone: [facility] Start: 03-06-2024 End: 03-06-2024 Office outpatient visit 15 minutes Chay Alejandre DPM Work Phone: [facility] Comment on above: Neuroma digital nerv e (Primary Dx); Other specified peripheral vascular diseases ([facility]); Pain in both feet Start: 03-06-2024 End: 03-06-2024 ambulatory CHAY ALEJANDRE Not Available Start: 01-04-2024 End: 01-04-2024 ambulatory CHAY ALEJANDRE Not Available Start: 12-16-2023 End: 12-16-2023 ambulatory [facility] Work Phone: Start: 12-16-2023 End: 12-16-2023 Encounter for general adult medical examination without abnormal findings [facility] Start: 12-16-2023 End: 12-16-2023 Patient encounter procedure [facility] Work Phone: Start: 12-07-2023 End: 12-07-2023 ambulatory CHAY ALEJANDRE Not Available Start: 11-07-2023 End: 11-07-2023 ambulatory MIKAL LEMUS Not Available Start: 01-21-2023 End: 01-21-2023 ambulatory Clint Veras Other [employer] Other Start: 01-21-2023 Telephone encounter Clint Veras [facility] Start: 12-15-2022 End: 12-15-2022 ambulatory Clint Veras Other [employer] Other Start: 12-15-2022 Telephone encounter Clitn Mantilla [facility] Start: 12-14-2022 End: 12-14-2022 ambulatory Clint Veras Other [employer] Other Start: 12-14-2022 Encounter for genera l adult medical examination without abnormal findings Clint Veras [facility] Start: 12-14-2022 Periodic preventive med est patient 40-64yrs Clint Veras [facility] Start: 07-16-2022 End: 07-16-[address] SHARMAINE CHAUDHARI . 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 Start: 06-27-2022 End: 07-13-[address] CLINT VERAS Facility:[facility] Start: 06-23-2022 End: 06-23-2022 ambulatory Leon Kohli Facility:[facility] Start: 06-22-2022 End: 06-22-2022 ambulatory Leon Kohli Other [employer] Other Start: 06-22-2022 Telephone encounter Leon MAYORGA [facility] Start: 06-16-2022 End: 06-26-[address] CLINT VERAS Facility:[facility] Start: 06-08-2022 End: 06-08-2022 ambulatory David Lemus Other [employer] Other Start: 06-08-2022 Office outpatient ne w 45 minutes David Lemus [facility] [place] Start: 05-27-2022 Gynecological examination normal Clint Veras Other [employer] Other Start: 05-27-2022 End: 05-27-[address] CLINT VERAS Facility:[facility] Start: 05-14-2022 End: 05-15-[address] CLINT VERAS Facility:[facility] Start: 05-11-2022 End: 05-12-[address] CLINT VERAS Facility:[facility] Start: 04-23-2022 End: 04-23-[address] SHARMAINE CHAUDHARI . Facility:[facility] Start: 02-22-2022 End: 02-22-2022 ambulatory Leon Kohli Other [facility] Other Start: 02-22-2022 Telephone encounter Leon MAYORGA G Alumni Secretary Start: 01-16-2022 End: 01-17-[address] GAMA [place] Facility:[facility] Start: 01-06-2022 End: 01-07-[address] ELMER ANTOINE Facility:[facility] Start: 12-10-2021 Encounter for genera l adult medical examination without abnormal findings DR CLINT VERAS [facility] Start: 12-08-2021 End: 12-09-[address] CLINT VERAS Facility:[facility] Start: 12-08-2021 End: 12-09-2021 Encounter for general adult medical examination without abnormal findings DR CLINT VERAS Facility:[facility] Start: 12-08-2021 Adult health examination Clint Veras Other [facility] Other Start: 2021 End: [address] GAMA [place] Facility:[facility] Start: 09-30-2021 End: 10-01-[address] CLINT VERAS Facility:[facility] Start: 11-03-2017 End: 11-03-2017 Ambulatory [facility] Procedures Date Procedure Procedure Detail Performing Clinician Start: 05-21-2024 Urnls dip stick/tabl et rgnt non-auto w/o micrscp Nimco LIANG Work Phone: Start: 05-21-2024 IGP,APTIMA HPV,AGE GDLN Nmico LIANG Work Phone: Start: 05-16-2023 Cytp cerv/vag [...] EST Office Visit [facility] [address] [place] [address] Nimco Trimble PA [address] [place] [address] [facility] Start: 11-06-2024 End: 11-06-2024 Patient encounter procedure 11/06/2024 11:35 AM EDT Office Visit [facility] [address] [place] [phone] Mikal Lemus APRN-SARAH [address] [place] [address] [facility] Start: 06-14-2024 End: 06-14-2024 Patient encounter procedure 06/14/2024 10:45 AM EST Office Visit [facility] [address] [place] [phone] Chay Alejandre DPM [address] [place] [address] [facility] Start: 05-29-2024 End: 05-29-2024 Patient encounter procedure 05/29/2024 10:45 AM EST Office Visit [facility] [address] [place] [address] Chay Alejandre, DPM [address] [place] [address] [facility] Start: 05-21-2024 End: 05-21-2025 DXA Skeletal system Views for bone density DEXA bone density Imaging Routine Osteoporosis, post-menopausal ([facility]) Expected: 05/21/2024 (Approximate), Expires: 05/21/2025 [facility] Comment on above: Expected: 05/21/2024 (Approximate), Expires: 05/21/2025 Start: 05-21-2024 End: 07-21-2025 MG Breast - bilateral Screening Bilateral screening mammogram Imaging Routine Breast cancer screening by mammogram Expected: 05/21/2024 (Approximate), Expires: 07/21/2025 [facility] Work Phone: Comment on above: Expected: 05/21/2024 (Approximate), Expires: 07/21/2025 Start: 05-21-2024 End: 05-21-2024 Patient encounter procedure [facility] Comment on above: Arrived Start: 04-17-2024 End: 04-17-2024 Patient encounter procedure 04/17/2024 9:45 AM EDT Office Visit [facility] [address] [place] [address] Chay Alejandre, DPM [address] [place] [address] [facility] Start: 03-06-2024 End: 03-06-2024 Patient encounter procedure 03/06/2024 8:45 AM EDT Office Visit [facility] [address] [place] [phone] Chay Alejandre, DPM [address] [place] [address] Arrived [facility] Comment on above: Arrived Comprehensive metabo lic 2000 panel - Serum or Plasma [facility] THIN PREP TIS PAP AN D HR HPV DNA THIN PREP TIS PAP AND HR HPV DNA Pathology and Cytology Routine Well woman exam with routine gynecological exam H/O: hysterectomy Ordered: 05/21/2024 [facility] Comment on above: Ordered: 05/21/2024 [facility] Immunizations Immunization Date Immunization Notes Care Provider Bandar sharma 09-03-2020 COVID-19 Vaccine Mejia ssen - Documentation Purposes Only Clint Veras Other [facility] Payers Date Payer Category Payer Private Health Insurance [facility] [id number] 2023 Unknown [facility] [id number] 2023-Present [address] [place] [address] [id number] 2023 Unknown [id number] 1960 Unknown [id number] 2.16.840.1.959318.3.579. 2.593 1959 Unknown [id number] 2.16.840.1.221010.3.579. 2.593 1959 Unknown [id number] 2.16.840.1.010685.3.579. 2.593 1959 Unknown [id number] 2.16.840.1.956196.3.579. 2.593 1959 Unknown [id number] 2.16.840.1.829972.3.579. 2.593 1959 Unknown [id number] 2.16.840.1.045739.3.579. 2.593 1959 Unknown [id number] 2.16.840.1.176029.3.579. 2.593 1959 Unknown [id number] 2.16.840.1.934728.3.579. 2.593 1959 Unknown [id number] 2.16.840.1.281869.3.579. 2.593 1959 Unknown [id number] 2.16.840.1.246097.3.579. 2.593 1959 Unknown [id number] 2.16.840.1.681682.3.579. 2.593 1959 Unknown [id number] 2.16.840.1.601922.3.579. 2.593 1959 Unknown [id number] 2.16.840.1.569909.3.579. 2.593 1959 Unknown [id number] 2.16.840.1.168435.3.579. 2.1259 1959 Unknown [id number] 2.16.840.1.379393.3.579. 2.1259 1959 Unknown [id number] 2.16.840.1.767234.3.579. 2.1259 1959 Unknown [id number] 2.16.840.1.609840.3.579. 2.1259 1959 Unknown [id number] 2.16.840.1.830055.3.579. 2.1259 1959 Unknown [id number] 2.16.840.1.067450.19 1959 Unknown [id number] Private Health Insurance [facility] [id number] Self-pay Self Pay [id number] Social History Date Type Detail Facility Sex Assigned At [facility] [employer] Other Start: 06-23-2022 Tobacco smoking status NHIS Smoker (finding) [facility] Start: 1960 Sex Assigned At Female F [facility] Start: 05-01-2023 Tobacco smoking status NHIS Tobacco smoking consumption unknown [facility] Start: 01-04-2024 End: 03-06-2024 Alcoholic beverage intake Lifetime non-drinker (finding) [facility] Start: 05-01-2023 Tobacco Comment Current smoker frequency unknown [facility] Start: 05-01-2023 Alcohol Comment caffeine: no [facility] Start: 1960 Sex assigned at Not on file [facility] Clinical Notes 02-22-2022 to 05-21-2024 AZUL Zapata - 05/21/2024 10:00 AM AZUL Velazquez - 05/21/2024 10:00 AM Nata Alejandre DPM - 03/06/2024 8:45 AM EDT Note Date & Type Note Facility 05-21-2024 [...] (See Comments) Other Reaction(s): Itching Acetaminophen Itching [facility] Other Other Reaction(s): Unknown Reaction Caffeine Anxiety [...] with bilateral sciatica Arrhythmia Arthritis Atherosclerosis of [place]edar[place] artery of both lower extremities with intermittent [...] with bilateral sciatica Arrhythmia Arthritis Atherosclerosis of [place] artery of both lower extremities with intermittent [...] 2021 EGD 05/2019 OTHER SURGICAL HISTORY 02/2016 [facility] OTHER SURGICAL HISTORY 11/2017 Bx Periclitor, [...] (See Comments) Other Reaction(s): Itching Acetaminophen Itching [facility]Zvpcy[facility] Other Other Reaction(s): Unknown Reaction Caffeine Anxiety [...] with bilateral sciatica Arrhythmia Arthritis Atherosclerosis of [place]edar[place] artery of both lower extremities with intermittent [...] with bilateral sciatica Arrhythmia Arthritis Atherosclerosis of [place] artery of both lower extremities with intermittent [...] 2021 EGD 05/2019 OTHER SURGICAL HISTORY 02/2016 [facility] OTHER SURGICAL HISTORY 11/2017 Bx Periclitor, [...] Documented by AZUL Zapata on behalf of: AZLU Zapata documented in this encounter [facility] 03-06-2024 History of Presen t illness Narrative Images from the original note were not included. HPI: Patient presents today For follow-up of bilateral foot pain, neuroma and callus. Overall she states that her symptoms have improved and she is doing well with use of the padding and splinting. Patient states that her pain has improved since her last visit. She states that her feet hurt and get hot at night time. Patient states that sometimes when she walks, she feels cracking in her feet bilaterally. No other complaints. Exam: General Examination: GENERAL APPEARANCE: awake, aware of surroundings, in no acute distress Vascular: DORSALIS PEDIS PULSE: 1/4, bilaterally POSTERIOR TIBIAL PULSE: 0/4, bilaterally TEMPERATURE GRADIENT: warm to cool EDEMA: none CAPILLARY FILLING TIME(sec): capillary fill intact bilateral digits greater than 3 secs Neurologic: NEUROLOGIC: light touch is intact to the plantar foot Dermatologic: SKIN FINDINGS: normal HYPERKERATOSIS: Location: medial 2nd digit, lateral hallux NAIL PATHOLOGY: digits 1-5 bilateral are intact. Some pain and thickness to the right hallux nail. Pain with pressure along the top and medial border/corner of the nail SKIN PATHOLOGY: texture, turgor, hair growth, within normal limits Orthopedic: FOOT MORPHOLOGY: normal JOINT RANGE OF MOTION: normal ROM to the ankle, subtalar joints and 1st MPJ bilateral with no evidence of pain with ROM DEFORMITIES: hammertoe 2nd digit, increased spacing between the 3rd and 4th toes bilateral PAIN ELICITED WITH PALPATION OF: pain with palpation over the hallux and 2nd digit MUSCLE STRENGTH: 5/5 for all pedal groups tested Assessments: ICD L84 - Corns and callosities: ICD M79.671 - Pain in right foot: ICD M79.672 - Pain in left foot: Neuroma bilateral 3rd interspace Metatarsalgia Hallux Valgus R>L Toe deformity bilateral Treatment Note: The specimen the patient the further options for treatment regards to pain and bilateral toes and neuropathy. He specifically discussed additional treatment such as injection, continued padding and offloading and topical versus oral nerve medications. We also discussed use of a topical anti-inflammatory medication. This will be prescribed through [facility] formulation Gabadiclomax with verapamil to also help with the circulation. Advised them on the process of obtaining a prescription through [facility] and that they will be contacted by the pharmacy regarding coverage and out of pocket cost. Patient was instructed on application and use of the medication and a patient handout was dispensed. I did also discuss that I feel that some of her symptoms are related to the underlying peripheral artery disease. The best option to proceed with treatment is continuing with exercise and use of blood thinners or cholesterol medications. She does follow with primary care and discharged to this and has not seen anyone officially with vascular surgery. This may be an option in the future if she has persistent symptoms are related to the circulation in the feet. Will follow up in 4-6 weeks for recheck. documented in this encounter [facility] 01-21-2023 Evaluation note Encounter Date Diagnosis Assessment Notes Dec, Cigarette nicotine dependence without complication (ICD-10 - F17.210) LDCT lungs w/o suspicious nodules - 12/2022Dec, Mucopurulent chronic bronchitis (ICD-10 - J41.1) [employer] Other 06-20-2023 Evaluation note* Encounter Date Diagnosis [...] use, the patient reduces the risk for WI, CVA, HTN, cardiac dysrhythmias and sudden cardiac [...] repeat scope in 5years Nov, Atherosclerosis of cedarville artery of both lower extremities with intermittent claudication (ICD-10 - I70.213) Inspect feet daily, walk daily. Continue ASA and Statin therapy [employer] Other 01-22-2023 History general Narrative - Reported* Type Description Date Medical History hypertension Medical History hyperlipidemia Medical History fibromyalgia Surgical History hysterectomy Surgical History colonoscopy 07/18/22 [employer] Other 01-22-2023 History general Narrative - Reported* Type Description Date Medical History hypertension Medical History hyperlipidemia Medical History fibromyalgia Surgical History hysterectomy Surgical History colonoscopy 07/18/22 Hospitalization History see surgical history [employer] Other 12-13-2022 Evaluation note* Encounter Date Diagnosis [...] note writ ten by Rashaad Alejandre MA, [employer]. Edited and approved by Dr. David Lemus [...] negative findings were considered in medical decision-making. [employer] Other 08-29-2022 Evaluation note* Encounter Date Diagnosis Assessment Notes Treatment Notes Treatment Clinical Notes Jan, Screening for colon cancer (ICD-10 - Z12.11) [employer] Other [facility] Other Evaluation note* Diagnosis Onset Date Resolution Status Chronic bronchitis acute ELADIO (generalized anxiety disorder) acute Hypertension acute Nicotine addiction acute TARA (obstructive sleep apnea) acute Peripheral artery disease [place] Wellness examination noneact jason [facility] Work Phone: Evaluation note* Diagnosis Well woman exam with routine gynecological exam Routine gynecological examination H/O: hysterectomy Acquired absence of both cervix and uterus Breast cancer screening by mammogram Osteoporosis, post-menopausal (CMS/HCC) Senile osteoporosis Urinary tract infection without hematuria, site unspecified [facility] Diagnosis Neuroma digital nerve- Primary Other specified peripheral vascular diseases (CMS/HCC) Pain in both feet documented in this encounter [facility] Narrative - Reported* Type Description Date Medical History hypertension Medical History hyperlipidemia Medical History fibromyalgia Surgical History hysterectomy [facility] Other Summary Purpose Family History Relationship Condition [...] section and content) DATE CREATED AUTHOR 12/14/2017 [facility] DATE CREATED AUTHOR AUTHOR'S ORGANIZ ATION 06/23/2022 [facility] DATE CREATED AUTHOR AUTHOR'S ORGANIZ ATION 09/21/2022 [facility] DATE CREATED AUTHOR AUTHOR'S ORGANIZ ATION 05/23/2024 [facility] Special[facility] EPIC REASON FOR VISIT (unrecogniz ed section and content) Reason Comments Gynecologic Exam Care Teams (unrecognized sec tion and content) Team Status: Active Member Role Status Dates Clint Veras DO Primary Care Provider Active Team Status: Inactive Member Role Status Dates Clint Veras DO Primary Care Provide r, Attending Provider Active Start: December 16, 2023 End: December 16, 2023 Ship Steward Relationship Specialty Start Date End Date Clint Veras MD [address] [facility] [place] [address] PCP - General Internal Medicine 05/16/23 Ship Steward Relationship Specialty Start Date End Date Clint Veras MD [address] [place] [address] PCP - General Internal Medicine 05/16/23 Ship Steward Relationship Specialty Start Date End Date Clint Veras MD [address] [place] [address] PCP - General Internal Medicine 05/16/23 Ship Steward Relationship Specialty Start Date End Date Clint Veras MD [address] [place] [address] PCP - General Internal Medicine 05/16/23 Goals [...] BE BASED ON THE PRIMARY CLINICAL RECORDS. [facility]. provides no warranty or guarantee of the accuracy or completeness of information in this document.
--- NOTE | 2024-06-15 09:30 | XR_ITS ---
The [address] [address] Patient Name: MALACHI FOSTER MRN: [id number] date: 1960 Sex: F Assigned Patient Location: [facility] Current Patient Location: [facility] Accession/Order Number: [id number] Exam Date: 06/15/2024 09:07 Report Date: 06/15/2024 11:53 At the request of: DERIK TRIMBLE Procedure: XR DEXA axial skeleton EXAMINATION: XR DEXA axial skeleton, 06/15/2024 9:07 AM EST HISTORY: Osteoporosis Post Menopausal COMPARISON: 2021, 2019, 2015. TECHNIQUE: Dual-energy X-ray absorptiometry (DEXA) bone density study performed for the axial skeleton. FINDINGS: Bone mineral density AP spine L1-L4 measures 0.950 g percent meters per. T score -1.9. Osteopenia. Moderate fracture risk Bone mineral density left femoral neck measures 0.778 g/sq cm. T score -1.9. Osteopenia XR/XR DEXA axial skeleton IMPRESSION: Osteopenia. Moderate fracture risk Pharmacologic treatment recommendations * No uniform recommendation applies to all patients. Management plans must be individualized. * Consider initiating pharmacologic treatment in postmenopausal women and men >= 50 years of age who have the following: Primary fracture prevention: * T-score <= - 2.5 at the femoral neck, total hip, lumbar spine, 33% radius (some uncertainty with existing data) by DXA. * Low bone mass (osteopenia: T-score between - 1.0 and - 2.5) at the femoral neck or total hip by DXA with a 10-year hip fracture risk >= 3% or a 10-year major osteoporosis-related fracture risk >= 20% (i.e., clinical vertebral, hip, forearm, or proximal humerus) based on the US-adapted FRAXregistered model. Secondary fracture prevention: * Fracture of the hip or vertebra regardless of BMD [4, 5]. * Fracture of proximal humerus, pelvis, or distal forearm in persons with low bone mass (osteopenia: T-score between - 1.0 and - 2.5). The decision to treat should be individualized in persons with a fracture of the proximal humerus, pelvis, or distal forearm who do not have osteopenia or low BMD [12, 13]. Cheryl OBREGON, Mony SL, Rosalinda KL, Dmitry EM, Jovani KG, AJ, Gauri ES. The clinician's guide to prevention and treatment of osteoporosis. Osteoporos Int. 2021;33(10):9429-0499. doi: 10.1007/a27164-071-25603-c. Epub 2021Oct 22. Erratum in: Osteoporos Int. 2021Jan 21;: PMID: 29618993; PMCID: [id number]. Electronically authenticated by: ELMER ANTOINE Date: 06/15/2024 11:53
--- NOTE | 2024-06-15 09:30 | MM_ITS ---
Patient Name: MALACHI FOSTER MR#: [id number] : 1960 Exam Date: 06/15/2024 Ordering Doctor: AZUL Fajardo . RADIOLOGY REPORT PROCEDURE: MM TOMOSYNTHESIS SCREENING BI COMPARISON: MG MAMM SCREEN 3D ARNOLDO CAD, 05/11/2022. MM TOMOSYNTHESIS SCREENING BI, 05/26/2023. INDICATIONS: Screening Calculator Name NCI Breast Cancer Risk Assessment Tool 5 Year Breast Cancer Risk 1.80% Lifetime Breast Cancer Risk 7.20% Personal Breast Cancer No Personal Ovarian Cancer No Treatments None Family Cancers Sister with uterine cancer at age 68. LOCATION: [facility] BREAST COMPOSITION: There are scattered areas of fibroglandular density. FINDINGS: DIAGNOSTIC CATEGORY 1--NEGATIVE. NO CHANGE FROM COMPARISON ASSESSMENT. RIGHT BREAST: No significant suspicious finding. LEFT BREAST: No significant suspicious finding. RECOMMENDATIONS: ROUTINE MAMMOGRAM AND CLINICAL EVALUATION IN 12 MONTHS. PLEASE NOTE: A NORMAL MAMMOGRAM DOES NOT EXCLUDE THE POSSIBILITY OF BREAST CANCER. A CLINICALLY SUSPICIOUS PALPABLE LUMP SHOULD BE BIOPSIED. Dictated by: Jhonathan Vanegas MD on 06/15/2024 at 12:40 Approved by: Jhonathan Vanegas MD on 06/15/2024 at 12:41
== END 2024-06-15 09:00 | disposition home or self-care (01) ==
LOC: MAMMO 08:59
PROVIDERS: PCP Internal Medicine; Visit Provider Physician Assistant
DX: Z12.31 Encounter for screening mammogram for malignant neoplasm of breast (principal); M81.0 Age-related osteoporosis without current pathological fracture; Z80.8 Family history of malignant neoplasm of other organs or systems; M85.80 Other specified disorders of bone density and structure, unspecified site
CPT/HCPCS: 77063; 77067; 77080

== ENCOUNTER 2024-10-26 07:25 | Outpatient (OUT) | payer MEDICARE, OTHER, SELFPAY ==
--- NOTE | 2024-10-26 07:40 | CT_ITS ---
The [address] [address] Patient Name: MALACHI FOSTER MRN: [id number] date: 1960 Sex: F Assigned Patient Location: LAB Current Patient Location: LAB Accession/Order Number: [id number] Exam Date: 10/26/2024 09:33 Report Date: 10/26/2024 09:36 At the request of: AGUILA LARA DO Procedure: CT chest w con CT CHEST WITH INTRAVENOUS CONTRAST: CLINICAL HISTORY: Hilar Lymphadenopathy COMPARISON: CT chest 04/25/2024 TECHNIQUE: Spiral images were obtained through the chest following intravenous administration of IV contrast. This CT exam was performed using one or more following dose reduction techniques: Automated exposure control, adjustment of the mA and/or kV according to patient size, or use of iterative reconstruction technique. FINDINGS: Mediastinum:Thoracic aorta appears normal in caliber. Pulmonary trunk appears nondilated. No pericardial effusion. No pathologically enlarged lymph nodes are seen involving the mediastinum or hilar regions. Prominent right hilar lymph node measuring 1 cm in short axis. The esophagus is grossly unremarkable. Lungs:No definite changes. Mild lung scarring. No consolidation pneumothorax or pleural effusion. Trachea and distal airways appear patent. No suspicious pulmonary nodule is seen on today's study. Abd:No acute findings. Soft tissues/Bones: No acute process. Osseous structures demonstrate degenerative change. CT/CT chest w con IMPRESSION: No acute process. No CT evidence of mediastinal or hilar lymphadenopathy. No suspicious pulmonary nodule. Emphysema. Impression dictated by: Maximo Charlton Jr., D.O. 10/26/2024 9:36 AM Dictation Location: TeamVisibility Electronically authenticated by: [id number] Y Date: 10/26/2024 09:36
[2024-10-26 07:52] LABS: Estimated GFR (African America >60 (>=60 mL/min/1.73m^2); Estimated GFR (Non-African Ame >60 (>=60 mL/min/1.73m^2)
== END 2024-10-26 07:26 | disposition home or self-care (01) ==
LOC: LAB 07:25
PROVIDERS: PCP Internal Medicine; Visit Provider Internal Medicine
DX: R59.0 Localized enlarged lymph nodes (principal)
CPT/HCPCS: 36415; 71260; 82565; Q9967

== ENCOUNTER 2025-01-02 09:56 | Outpatient (OUT) | payer MEDICARE, OTHER, SELFPAY ==
--- OUTSIDE RECORDS SUMMARY | 2019-07-02 08:40 | XMS_ITS | Continuity of Care Document ---
Author Organization [facility] Address [address] [place] [address] Phone Care Team Providers Care Band Edger Name Role Phone Thanh ONEIL, Maribeth Unavailable Unavailable Allergies, Adverse Reactions, Alerts Substance Reaction Status Criticality PROPOXYPHENE NAPSYLATE itching(severe)itching(severe) Active No Information acetaminophen itching(severe)itching(severe) Active No Information CYCLOBENZAPRINE HCL increased b/p and heart rate(sever e) Active No Information BUPROPION HCL itching/rash(severe) Active No Inf ormation Medications Medication Instructions Dosage Effective Dates (start - stop) Status Comments Biofreeze (menthol) 4 % topical gel as needed - Active Lidocaine Pain Relief 4 % topical patch as needed - Active Bio-Identical Hormones (unknown strength) cream-divide doses to twice daily Not Available - Active Ferrex 150 mg iron capsule one cap every other day - Active Flonase Allergy Relief 50 mcg/actuation nasal spray,suspension spray 1 - 2 spray by intranasal route every day in each nostril as needed as needed 50-100 MCG - Active lisinopril 5 mg tablet take 1 tablet by oral route every day 5 MG - Active Mucinex DM 60 mg-1,200 mg tablet,extended release 12 hr 2 daily as needed - Active acetaminophen 500 mg tablet PRN as needed - Active clopidogrel 75 mg tablet take 1 tablet by oral route every day 75 MG - Active PROGESTERONE (unknown strength) inject 0.1 milliliter by intramuscular route every day Not Available - No Longer Active Mucinex DM 60 mg-1,200 mg tablet,extended release 12 hr 2 daily - No Longer Active Flonase Allergy Relief 50 mcg/actuation nasal spray,suspension spray 1 - 2 spray by intranasal route every day in each nostril as needed 50-100 MCG - No Longer Active azithromycin 250 mg tablet 5 day course antibiotic - No Longer Active Aspir-81 mg tablet,delayed release take 1 tablet by oral route every day - No Longer Active lisinopril 10 mg tablet take 1 tablet by oral route every day 10 MG - No Longer Active Procedures Procedure Date Eye Exam Established Patient Comprehensi ve 1 Or More Visits Fluorescein Angiography With I And R Uni Or Bi Fundus Photography With I And R Bilatera l OFFICE/OUTPATIENT VISIT, NEW Advance Directives Directive Yes / No Effective Date File Name No Information Encounters Encounter Description Practice Location Reason(s) For Visit Diagnoses Date Provider Providers Copied on Encounter [facility] Physician s, [address] [place], [address], [place] tel: [phone] RVA Alejandrina blotches in vision (chief complaint) auras lasting about half hour (chief complaint) white balls of light outside of line of vision (chief complaint) like a camera lens opens in vision (chief complaint) Subjective visual disturbanceRetinal ischemiaEssential (primary) hypertensionHypertens jason retinopathy, right eye 0 Orgel Maribeth. [address], [address], [place], [place], [id number] , [place]. tel:[phone] Referring Provider: Maribeth Sánchez, [address], [place], [address] . tel:[phone] OFFICE/OUTPA TIENT VISIT, NEW [facility] Physician s, [address] [place], [address], [place] tel: [phone] RVA Alejandrina SRNV (chief complaint) vision loss (chief complaint) Essential (primary) hypertensionRetinal ischemiaSubjective visual disturbanceHypertensi ve retinopathy, right eye 9 Or[facility] Maribeth. [address], [address], [place], [place], [id number] , [place]. tel:[phone] Referring Provider: Semaj Chappell, [address] [place], [address]. tel:[phone] Family History Family Member Type Diagnosis Age At Onset Problem (finding) Family history of Ulcerative colitis-mother Problem (finding) Family history of Heart Disease-Father/grandfather/brother Problem (finding) Family history of hyper tension Problem (finding) Family history of malignant neoplasm of skin Problem (finding) Family history of glauc bear Payers Payer name Insurance type Covered libertarian ID Sary siddiqi(s) [employer] Benefits [employer]ET[employer] - [id number] Social History Type Description Quantity Date Captured Comments Alcohol Use Details No Caffeine Use Details decaf soda 1 daily per day Tobacco Use Status Smoking Status Heavy tobacco smoker Smoking Tobacco Use Details Cigarette: Age Started: 18 Cigarette: 10 Cigarettes per day Sex Female Vital Signs Date / Time: Height Weight BMI Pulse Rate Blood Pressure Temperature Respiratory Rate Body Surface Area Head Circumference Head Circ. Percentile Wt./Isra. Percentile BMI percentile Pulse Ox Inhaled Ox 12:59 PM 132/73 mm[Hg] Chief Complaint And Reason For Visit From encounter dated '07/02/2019 12:40'. blotches in vision (chief complaint). Description: The 58 year old female reports blotches in vision in the right eye x 4 weeks (lasting about 10 minutes). The onset was sudden. It affects both near and distance vision. The symptom is all of the time. The condition is severe. In addition, the condition is associated with daily activities and chores. Patient reports small clear burst in vision in the right eye x 4 weeks constant until the blotches completely filled the vision in the right eye (lasting a few minutes). Patient reports she seen a bright meteor tail in the vision in the right eye x 4 weeks ago (lasting a split second). Patient reports if she closed the right eye she could see a rippling water in the left eye x 4 weeks (lasting few minutes). Patient reports this all went away then she called her PCP and was told to go to the ER if this all happened again. Patient reports she has a headache on top of her head (about half hour afterwards) lasting about an hour. History of visual disturbance in right eye. auras lasting about half hour (chief complaint). Description: The patient reports auras lasting about half hour in both eyes x 5 days. The onset was sudden. It affects both near and distance vision. The symptom is all of the time. The condition is severe. In addition, the condition is associated with daily activities and chores. Patient reports she had colorful squiggly lines in vision that started with a blind spot that got bigger and bigger (shaped like a C or a backwards C) then within the half hour gradually moved off to the outside of vision until its gone (no headache). white balls of light outside of line of vision (chief complaint). Description: The patient reports white balls of light outside of line of vision in both eyes x this morning and has had previous episodes. The onset was sudden. Vision is not affected. The symptom is intermittently. The condition is mild. In addition, the condition is associated with daily activities and chores. Patient reports these episodes that last a few seconds then go away. like a camera lens opens in vision (chief complaint). Description: The patient reports it is like acamera lens opens in vision in both eyes x 3 weeks (previous episodes). The onset was sudden. Vision is affected for a split second enough time for her to blink. The symptom is intermittently. The condition is mild. In addition, the condition is associated with daily activities and chores. Reason For Referral Reason For Referral No Information Plan Of Treatment Date Type Action Status Goal Tobacco cessation counseling completed Goal Tobacco cessation counseling completed History Of Present Illness Encounter Date Complaint History Of Prese nt Illness like a camera lens o pens in vision The patient reports it is like a camera lens opens in vision in both eyes x 3 weeks (previous episodes). The onset was sudden. Vision is affected for a split second enough time for her to blink. The symptom is intermittently. The condition is mild. In addition, the condition is associated with daily activities and chores. blotches in vision The 58 year o ld female reports blotches in vision in the right eye x 4 weeks (lasting about 10 minutes). The onset was sudden. It affects both near and distance vision. The symptom is all of the time. The condition is severe. In addition, the condition is associated with daily activities and chores. Patient reports small clear burst in vision in the right eye x 4 weeks constant until the blotches completely filled the vision in the right eye (lasting a few minutes). Patient reports she seen a bright meteor tail in the vision in the right eye x 4 weeks ago (lasting a split second). Patient reports if she closed the right eye she could see a rippling water in the left eye x 4 weeks (lasting few minutes). Patient reports this all went away then she called her PCP and was told to go to the ER if this all happened again. Patient reports she has a headache on top of her head (about half hour afterwards) lasting about an hour. History of visual disturbance in right eye. auras lasting about half hour Th e patient reports auras lasting about half hour in both eyes x 5 days. The onset was sudden. It affects both near and distance vision. The symptom is all of the time. The condition is severe. In addition, the condition is associated with daily activities and chores. Patient reports she had colorful squiggly lines in vision that started with a blind spot that got bigger and bigger (shaped like a C or a backwards C) then within the half hour gradually moved off to the outside of vision until its gone (no headache). white balls of light outside of line of vision The patient reports white balls of light outside of line of vision in both eyes x this morning and has had previous episodes. The onset was sudden. Vision is not affected. The symptom is intermittently. The condition is mild. In addition, the condition is associated with daily activities and chores. Patient reports these episodes that last a few seconds then go away. vision loss The patient repo rts vision loss in the right eye x 5 weeks (total 4 episodes/longest over an hour). The onset was sudden. The symptom is intermittent. The condition is severe. Patient reports episodes of temporary vision loss where the vision became blotchy then filled in and when the vision came back it came from top to bottom. Patient reports when she has episodes of vision loss she notices rippling water in her vision bottom inside left in the right eye x 5 weeks intermittently. Patient reports wavy vision. Patient states that she was hospitalized for high BP reading of 240/140. The patient states that she has a neurology appointment in the next week. SRNV The 58 year old female referred by Dr. Pringle for possible SRNV in the right eye. Functional Status Date Functional Assessmen t No Information Instructions Date Instruction Additional Infor mation Impression/Plan Related to Subje ctive visual disturbance Impression/Plan Related to Retin al ischemia Impression/Plan Related to Essen tial (primary) hypertension Impression/Plan Related to Hyper tensive retinopathy, right eye Return in 6 -[address] Law for follow up exam and OCT. Related to Hypertensive retinopathy, right eye Impression/Plan Related to Retin al ischemia Impression/Plan Related to Subje ctive visual disturbance Impression/Plan Related to Essen tial (primary) hypertension Impression/Plan Related to Hyper tensive retinopathy, right eye Impression/Plan Related to Essen tial (primary) hypertension Assessments Type Assessment Date assessment Subjective visual disturbance Ja impression Subjective visual di sturbance: H53.10 Right. Conditions: recent assessment Retinal ischemia impression Retinal ischemia: H35.82. Right. Conditions: mild assessment Essential (primary) hypertension impression Essential (primary) hypertension : I10 assessment Hypertensive retinopathy, right eye impression Hypertensive retinop athy, right eye: H35.031. Conditions: established Patient Care Teams Name Effective Dates (start - stop) Status Members No Information
--- OUTSIDE RECORDS SUMMARY | 2024-08-29 06:48 | XMS_ITS ---
Author Organization The [facility] [place] Address [address] [place] [address] Care Team Providers Care Cartography Supervisor Name Role Phone Clint Veras DO Primary Care Provider Sergio Casper [phone] REASON FOR VISIT Insurance Encounters Encounter Location Date Provider Diagnosis Pulmonary Medicine [place] [address] [place] [address] 08/29/2024 Sergio Perry Plan Of Treatment Next Appt Details Provider Name:Sergio Taye, 11/05/2025 10:30:00 AM, [address] [place], [address], Progress Notes * Candelaria FOSTER LDOB:[birth year] (63 yo F)Acc No.[id number]:08/29/2024 Patient: Candelaria CAPUTO :1960 A ge:63 Y S ex:Female Address:[address] [place], [address] * true * Date: Generated for Carlos fernandes/Jarret/eTransmitting on: 0 01/02/2025 09:59 AM EDT
--- OUTSIDE RECORDS SUMMARY | 2024-10-23 07:58 | XMS_ITS ---
Author Organization The [facility] in [place] Address [address] [place] [address] Care Team Providers Care Racecar Driver Name Role Phone Clint Veras DO Primary Care Provider Sheron Sergio Tamayo Unavailable [phone] Results Component Value Reference Range Notes CT Chest w/contrast * Reviewed date:10/29/2024 07:37:48 AM Interpretation: Performing Lab: Notes/Report: [facility] Reviewed date:10/29/2024 09:53:31 AM Interpretation: Performing Lab: Notes/Report: [facility] , Creatinine 0.71 0.55-1.02 mg/dL Estimated GFR ( Cece >60 >=60 mL/min/1.73m 2 Estimated GFR (Non- Leeanne >60 >=60 mL/min/1.73m 2 Performing Lab: see note ML - The [facility] REASON FOR VISIT Appointment Encounters Encounter Location Date Provider Diagnosis Pulmonary Medicine [place] [address] [place] [address] 10/23/2024 Sergio Perry Hilar lymphadenopath y R59.0 Assessments Encounter Date Diagnosis (ICD Code) Assessment Notes Treatment Notes Treatment Clinical Notes Section Notes 10/23/2024 Hilar lymphadenopathy (ICD-10 - R59.0) Plan Of Treatment Next Appt Details Provider Name:Sergio Perry, 11/05/2025 10:30:00 AM, [address] [place], [address], Progress Notes * Candelaria FOSTER LDOB:[birth year] (64 yo F)Acc No.[id number]:10/23/2024 Patient: Candelaria CAPUTO :1960 A ge:64 Y S ex:Female Address:[address] [place] [address], [place], [address] Subjective: * Chief Complaints: * A ppointment * Medical History: * Surgical History: * Hospitalization/Major Diagno stic Procedure: * Medications: Objective: * Vitals: * Physical Examination: Assessment: * Assessment: 1. H ilar lymphadenopathy - R59.0 (Primary) Plan: * Treatment: * Procedure Codes: * true * Date: Generated for Carlos fernandes/Jarret/Adore on: 0 01/02/2025 10:00 AM EDT
--- OUTSIDE RECORDS SUMMARY | 2024-10-30 06:00 | XMS_ITS ---
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 Name Role Phone Clint Veras DO Primary Care Provider Sheron griffin Sergio Perry Unavailable [phone] Allergies Allergen (clinical drug ingredient) Drug/Non Drug Allergy documented on EMR Reaction Allergy Type Onset Date Status Darvocet A500 Unknown Drug Allergy Act jason Flexeril rash Drug Allergy Active Wellbutrin rash Drug Allergy Active caffeine Caffeine heart racing Drug Allergy Acti ve REASON FOR VISIT 6 mos f/u COPD Medications Medication SIG (Take, Route, Frequency, Duration) Notes Start Date End Date Status Aspirin 81 MG 1 tablet Orally Once a day Active Atorvastatin Calcium 10 MG TAKE 1 TABLET BY MOUTH EVERY DAY Oral for 30 days Active Incruse Ellipta 62.5 MCG/ACT 1 puff Inhalation Once a day for 30 days 06/13/2024 Active Lisinopril 5 MG TAKE 1 TABLET BY MORELIA TH EVERY DAY Oral for 30 Days Active Social History Tobacco Use: Social History Observation Description Date Details (start date - stop date) Current Smoker NA - NA Tobacco Control (Standard) Question Answer Notes Tobacco use: Current every day smoker Additional Findings: Tobacco user Moderate cigar ette smoker (10-19 cigs/day) Vital Signs Weight 159.6 lbs 10/30/2024 Height 61.5 in 10/30/2024 Blood pressure systolic 158 mm Hg 10/31/19 25 Blood pressure diastolic 81 mm Hg 025 Temperature 97.1 degrees Fahrenheit 10/31/19 25 Heart Rate 69 /min 10/30/2024 Respiratory Rate 18 /min 10/30/2024 BMI 29.66 kg/m2 10/30/2024 Oximetry 90 % 10/30/2024 Encounters Encounter Location Date Provider Diagnosis [facility] [place] [address] [place] [address] 10/30/2024 Sergio Perry Centrilobular emphys rocio J43.2 ; Hilar lymphadenopathy R59.0 ; Hemoptysis R04.2 ; TARA (obstructive sleep apnea) G47.33 ; Cigarette nicotine dependence with nicotine-induced disorder F17.219 and Encounter for screening for malignant neoplasm of respiratory organs Z12.2 Assessments Encounter Date Diagnosis (ICD Code) Assessment Notes Treatment Notes Treatment Clinical Notes Section Notes 10/30/2024 Centrilobular emphysema (ICD-10 - J43.2) History of indecisiveness and apprehension in the past towards treatment d/t concerns for side effects (yet she continues to smoke daily...). She was on Spiriva and Incruse - she complains of blurry vision which is a potential adverse reaction, but she cannot tell if it started at same time as starting these medications or not. She previously voiced concern about adrenergic adverse effects with beta agonists. I generally would not recommend lone ICS in COPD. Ohtuvayre is a potential option, but that is administered via nebulizer. Patient remained indecisive about what she wanted to do. Faraz discussion that smoking cessation is the best thing she could do and her breathing could potentially improve, reducing the need for medications (which is her main concern). For now, she is going to stop Incruse and see how her breathing is. If she worsens, that suggests Incruse was improving her function. She is going to see an eye doctor regardless about her vision. 10/30/2024 Hilar lymphadenopathy (ICD-10 - R59.0) CT chest shows prominent, but not lymphadenopathy, of right hilar lymph node, measuring 1cm. It has not changed from 10/26/2024 compared to 04/16/2024 and other imaging. Do not feel she requires further CT chest imaging with contrast to monitor. Will watch peripherally via LDCT screening (though this lacks dye and is not specific for monitoring lymph nodes). 10/30/2024 Hemoptysis (ICD-10 - R04.2) Denies any hemoptysis since January 2024. She was counseled on smoking cessation yet again. 10/30/2024 TARA (obstructive sleep apnea) (ICD-10 - G47.33) History of TARA, was not being managed by me - was seeing Dr. Funk at [facility], but was lost to F/U, non-compliant with PAP because mask did not fit well. I do not have any studies or compliance for review. She has multiple symptoms which are likely related to untreated TARA (HTN, headaches, gasping, etc.). She was advised that she should be re-tested and restart PAP therapy. She is complaining about this nasal gasping and returns to this several times during the encounter. I suspect this is likely just vibration of her uvula/posterior soft palate with a glottic maneuver, almost like an isolated snore . It is unlikely to be causing any significant harm. She remains fixated on it - I stated that if she is concerned about it, she should see an ENT. 10/30/2024 Cigarette nicotine dependence with nicotine-induced disorder (ICD-10 - F17.219) And again, she was counseled on the importance of smoking cessation. Continues to smoke ~1/2-3/4ppd - many of her symptoms could improve or even resolve with smoking cessation. I voiced understanding it is difficult to quit as it is addicting, but if she wants to avoid further worsening of dyspnea and other complications, she needs to quit. She did not request any cessation aids or treatment. LDCT will be due 10/2025. 10/30/2024 Encounter for screening for malignant neoplasm of respiratory organs (ICD-10 - Z12.2) Low-dose CT (LDCT) was recommended for lung cancer screening. The patient meets criteria including age 50-77, a smoking history of at least 20 pack-years, is currently smoking or has ceased smoking within the past 15 years, and has no signs or symptoms of lung cancer. Shared decision making performed with the patient. After LDCT has been completed, will review report and/or imaging and provide appropriate recommendations for the patient, including additional follow up if needed. Patient was counseled on smoking cessation/continue d tobacco abstinence. LDCT due 10/2025. Plan Of Treatment Treatment Notes Assessment Notes Centrilobular emphysema History of indecisiveness and apprehension in the past towards treatment d/t concerns for side effects (yet she continues to smoke daily...). She was on Spiriva and Incruse - she complains of blurry vision which is a potential adverse reaction, but she cannot tell if it started at same time as starting these medications or not. She previously voiced concern about adrenergic adverse effects with beta agonists. I generally would not recommend lone ICS in COPD. Ohtuvayre is a potential option, but that is administered via nebulizer. Patient remained indecisive about what she wanted to do. Faraz discussion that smoking cessation is the best thing she could do and her breathing could potentially improve, reducing the need for medications (which is her main concern). For now, she is going to stop Incruse and see how her breathing is. If she worsens, that suggests Incruse was improving her function. She is going to see an eye doctor regardless about her vision. Hilar lymphadenopathy CT chest shows prominent, but not lymphadenopathy, of right hilar lymph node, measuring 1cm. It has not changed from 10/26/2024 compared to 04/16/2024 and other imaging. Do not feel she requires further CT chest imaging with contrast to monitor. Will watch peripherally via LDCT screening (though this lacks dye and is not specific for monitoring lymph nodes). Hemoptysis Denies any hemoptysis since January 2024. She was counseled on smoking cessation yet again. TARA (obstructive sleep apnea) History of TARA, was not being managed by me - was seeing Dr. Funk at [facility], but was lost to F/U, non-compliant with PAP because mask did not fit well. I do not have any studies or compliance for review. She has multiple symptoms which are likely related to untreated TARA (HTN, headaches, gasping, etc.). She was advised that she should be re-tested and restart PAP therapy. She is complaining about this nasal gasping and returns to this several times during the encounter. I suspect this is likely just vibration of her uvula/posterior soft palate with a glottic maneuver, almost like an isolated snore . It is unlikely to be causing any significant harm. She remains fixated on it - I stated that if she is concerned about it, she should see an ENT. Cigarette nicotine dependenc e with nicotine-induced disorder And again, she was counseled on the importance of smoking cessation. Continues to smoke ~1/2-3/4ppd - many of her symptoms could improve or even resolve with smoking cessation. I voiced understanding it is difficult to quit as it is addicting, but if she wants to avoid further worsening of dyspnea and other complications, she needs to quit. She did not request any cessation aids or treatment. LDCT will be due 10/2025. Encounter for screening for malignant neoplasm of respiratory organs Low-dose CT (LDCT) was recommended for lung cancer screening. The patient meets criteria including age 50-77, a smoking history of at least 20 pack-years, is currently smoking or has ceased smoking within the past 15 years, and has no signs or symptoms of lung cancer. Shared decision making performed with the patient. After LDCT has been completed, will review report and/or imaging and provide appropriate recommendations for the patient, including additional follow up if needed. Patient was counseled on smoking cessation/continued tobacco abstinence. LDCT due 10/2025. Future Test Test Name Order Date CT Chest Low Dose for Screening* 026 Next Appt Details Follow Up: 1 Year, Reason: C [facility] Provider Name:Sergio Perry, 11/05/2025 10:30:00 AM, [address] [place], [address], Procedure Notes * Category Sub-Category Detail Notes PFT Data: 05/22/2019-FEV1/ FVC: 74%-FEV1: 76%-FVC: 79%-YFB41-67%: 57% -Bronchodilator response: Positive in FEV1-RV: 140%-T%-DLCO: 71%-Flow-volume loop: Mild-moderate obstruction Alpha-1 Antitrypsin Screening Date: 10/05/2021 Genotype: MM Progress Notes * Candelaria FOSTER LDOB:[birth year] (64 yo F)Acc No.[id number]:10/30/2024 Follow Up Patient: Velvet GERMAIN Candelaria Lewis Provider: James Perry DO :1960 A ge:64 Y S ex:Female Date:10/30/2024 Address:[address] [place] [address] [place], [id number] Pcp:Clint Veras, DO Check In:10:01 AM Aliyah O ut:10:44 AM EST Subjective: * Chief Complaints: * 6 mos f/u COPD * HPI: G eneral: Patient presents with multiple complaints today. Still has dyspnea, does not feel that Incruse helped. Blurry vision, but patient is unclear if d/t Incruse/Spiriva or something else - she has not seen an eye doctor for a while. She continues to feel tired all the time, headaches throughout the day, and elevated blood pressure. She complains she doesn't sleep well and awakens multiple times throughout the night. She is fixated on this feeling that she has some sort of gasp breathing in her nose that she feels going into her mouth (nasopharynx to oropharynx/larynx). I note that she has a history of TARA and has a PAP, but she has not used that for some time as she did not become acclimated to the mask. Explained many of her symptoms she complained about would fit with untreated TARA. She continues to be fixated on this nasal gasping which overall does not seem greatly concerning to me. Despite these multiple complaints, including dyspnea, she continues to smoke ~1/2-3/4ppd. Reviewed that her CT chest 10/26/2024 compared to 04/16/2024 showed no lymphadenopathy - there still is a mildly prominent 1cm right hilar lymph node. No new nodules present. MA Intake Comments. Patient presents for a follow-up for COPD. Patient is using Incruse and reports minimal benefit. Patient complains of SOB with exertion. Patient admits to smoking 10-16 cigarettes per day. Patient recently had a CT Chest performed on 10/26/2024. Patient complains of ongoing vision issues while taking Incruse.Patient complains of elevated blood pressure readings and is concerned the Incruse is causing the elevated readings. S TOP-BANG Sleep Apnea Questionnaire: STOP D o you SNORE loudly (louder than talking or loud enough to be heard through closed doors)? Y es D o you often feel TIRED, fatigued, or sleepy during daytime? Y es H as anyone OBSERVED you stop breathing during your sleep? N o D o you have or are you being treated for high blood PRESSURE? Y es BANG B WI more than 35kg/m2? N o A GE over 50 years old? Y es N HERNÁN circumference > 16 inches (40cm)??No G DC: Male? N o Total Score: Y es 3-4 Intermediate risk of TARA. * ROS: G eneral/Constitutional: Fever or sweats d enies. C hange of appetite d enies. C hills d enies. W eight Change d enies. H EENT: Dry mouth d enies. S ore throat d enies. O ral Ulcers d enies. P ost Nasal Drip D enies. C ongestion D enies. H oarseness?Denies. V ision Change and Visual Disturbances b lurry vision. C ardiovascular: Tachycardia d enies. C hest pain d enies. P alpitations d enies. R espiratory: Pleurisy D enies. D yspnea a dmits. C ough a dmits. H emoptysis N one since January 2024. W heezing d enies. G astrointestinal: Acid Reflux/GERD/Heartburn d enies. D ysphagia d enies. M usculoskeletal: Arthralgias/joint pain D enies. S kin: Easy bruising d enies. R lan d enies. ? N eurologic: Headache a dmits. S eizures d enies. T remor d enies. P sychiatric: Anxiety d enies. * Active Problem List J43.2 Centrilobular emphys rocio Modified On:02/01/2023U Status:confirmed G47.33 TARA (obstructive sle ep apnea) Modified On:02/01/2023U Status:confirmed F17.219 Cigarette nicotine d ependence with nicotine-induced disorder Modified On:02/01/2023U Status:confirmed R59.0 Hilar lymphadenopath y Modified On:02/01/2024U Status:confirmed Z87.09 History of pleural e ffusion Modified On:02/01/2024U Status:confirmed * Medical History: * Surgical History: h ysterectomy, abdominal Cardiac Catheterization Thoracentesis 04/18/2022Partial Vulvectomy * Hospitalization/Major Diagno stic Procedure: D enies Past Hospitalization * Family History: M other: melanoma, diagnosed with Unspecified essential hypertension, Unspecified heart disease. S ister(s): blood clot. M aternal Grandfather: melanoma. M aternal Grandmother: Cerebral vascular accident. F ather: diagnosed with Unspecified heart disease. B rother(s): diagnosed with Unspecified essential hypertension. P aternal Grandfather: diagnosed with Unspecified heart disease. * Social History: T obacco Use: T obacco Control (Standard) T obacco use: C urrent every day smoker A dditional Findings: Tobacco user M oderate cigarette smoker (10-19 cigs/day) Electronic Cigarette use C urrent user N o LM: Additional Tobacco Questions N umber of Years Pt Smoked: 4 1 N umber of Packs per Day: . 5 M iscellaneous: O ccupation [facility] P[facility]: none. D rugs/Alcohol: D rugs H ave you used drugs other than those for medical reasons in the past 12 months? N o D oes the Patient have a History of Drug Abuse in the Past? N o Caffeine I ntake: n one Do you drink alcohol?: No. Do you smoke marijuana?: Denies. * Medications: T akingAspirin 81 MG Tablet Delayed Release 1 tablet Orally Once a day Atorvastatin Calcium 10 MG Tablet TAKE 1 TABLET BY MOUTH EVERY DAY Oral Incruse Ellipta(Umeclidinium [place]) 62.5 MCG/ACT Aerosol Powder Breath Activated 1 puff Inhalation Once a day Lisinopril 5 MG Tablet TAKE 1 TABLET BY MOUTH EVERY DAY Oral Medication List reviewed and reconciled with the patientTaking Aspirin 81 MG Tablet Delayed Release 1 tablet Orally Once a day Taking Atorvastatin Calcium 10 MG Tablet TAKE 1 TABLET BY MOUTH EVERY DAY Oral Taking Incruse Ellipta(Umeclidinium [place]) 62.5 MCG/ACT Aerosol Powder Breath Activated 1 puff Inhalation Once a day Taking Lisinopril 5 MG Tablet TAKE 1 TABLET BY MOUTH EVERY DAY Oral Medication List reviewed and reconciled with the patient * Allergies: W ellbutrin: rash - AllergyDarvocet A500: AllergyFlexeril: rash - AllergyCaffeine: heart racing - Allergyno[Allergies Verified] Objective: * Vitals: W t:159.6lbs, Ht: 61.5 in, BP:sittin/81mm Hg, Temp:Forehead:97.1F, HR:69/min, RR:18/min, BMI:29.66Index, Oxygen sat %:Room Air:90%, Ht-cm: 156.21 cm, Wt-k.39 kg. * Examination: E xam: GENERAL APPEARANCE: A ppears stated age. Skin N ormal. Mouth P ink and moist. Oropharynx M allampati Class III. Trachea M idline. Chest N ormal. Respiratory Normal M ovements, E ffort N ormal. Auscultation D iminished with mild expiratory wheezes and coarse breath sounds. Cardiac R egular rate and rhythm. Gastrointestinal N ormal. Vascular N o edema. Musculoskeletal N ormal posture. Neurological F ocal, intact. Psychiatric A lert and oriented x3. Mentation/Cognition N ormal. Assessment: * Assessment: 1. C entrilobular emphysema - J43.2 (Primary) 2 . H ilar lymphadenopathy - R59.0 3 . H emoptysis - R04.2 4 . O SA (obstructive sleep apnea) - G47.33 5 . C igarette nicotine dependence with nicotine-induced disorder - F17.219 6 . E ncounter for screening for malignant neoplasm of respiratory organs - Z12.2 Plan: * Treatment: 2. H ilar lymphadenopathy Notes: CT chest shows prominent, but not lymphadenopathy, of right hilar lymph node, measuring 1cm. It has not changed from 10/26/2024 compared to 04/16/2024 and other imaging. Do not feel she requires further CT chest imaging with contrast to monitor. Will watch peripherally via LDCT screening (though this lacks dye and is not specific for monitoring lymph nodes). 3. H emoptysis Notes: Denies any hemoptysis since January 2024. She was counseled on smoking cessation yet again. ? 4. O SA (obstructive sleep apnea) Notes: History of TARA, was not being managed by me - was seeing Dr. Funk at [facility], but was lost to F/U, non-compliant with PAP because mask did not fit well. I do not have any studies or compliance for review. She has multiple symptoms which are likely related to untreated TARA (HTN, headaches, gasping, etc.). She was advised that she should be re-tested and restart PAP therapy. She is complaining about this nasal gasping and returns to this several times during the encounter. I suspect this is likely just vibration of her uvula/posterior soft palate with a glottic maneuver, almost like an isolated snore . It is unlikely to be causing any significant harm. She remains fixated on it - I stated that if she is concerned about it, she should see an ENT. 5. C igarette nicotine dependence with nicotine-induced disorder I maging: CT Chest Low Dose for Screening* (Ordered for 10/25/2025) Notes: And again, she was counseled on the importance of smoking cessation. Continues to smoke ~1/2-3/4ppd - many of her symptoms could improve or even resolve with smoking cessation. I voiced understanding it is difficult to quit as it is addicting, but if she wants to avoid further worsening of dyspnea and other complications, she needs to quit. She did not request any cessation aids or treatment. LDCT will be due 10/2025. 6. E ncounter for screening for malignant neoplasm of respiratory organs I maging: CT Chest Low Dose for Screening* (Ordered for 10/25/2025) Notes: Low-dose CT (LDCT) was recommended for lung cancer screening. The patient meets criteria including age 50-77, a smoking history of at least 20 pack-years, is currently smoking or has ceased smoking within the past 15 years, and has no signs or symptoms of lung cancer. Shared decision making performed with the patient. After LDCT has been completed, will review report and/or imaging and provide appropriate recommendations for the patient, including additional follow up if needed. Patient was counseled on smoking cessation/continued tobacco abstinence. LDCT due 10/2025. * Procedures: A lpha-1 Antitrypsin: Screening Date: . Genotype: Donell Marley. Liz FT: Data: 05/22/2019 -FEV1/FVC: 74% -FEV1: 76% -FVC: 79% -BNP50-10%: 57% -Bronchodilator response: Positive in FEV1 -RV: 140% -T% -DLCO: 71% -Flow-volume loop: Mild-moderate obstruction. ? * Procedure Codes: * Preventive Medicine: COVID Vaccination: H as patient had COVID Vaccination? COVID Vaccination Y es 09/03/2020 Immunization Status: P neumovacc P t Refused. I nfluenza P t Refused. Screenings/Counseling: F ALL RISK SCREENING Fall Risk Assessment: N o falls in the past year Are you afraid of falling? N o T OBACCO ACTION PLAN Patient counselled on the dangers of tobacco use and urged to quit. 0 10/30/2024 Cessation counseling provided 0 10/30/2024 F BLADE EXCLUSION Reason: P atient Reason refused/declined Type of Patient Reason: D rug declined by patient B WI ACTION PLAN Above Normal BMI Follow-up D ietary management education, guidance, and counseling * Follow Up: 1 Year (Reason: COPD) * * Sign off status: Completed Visit Status: C HK (Check Out) true * Provider: James Perry DO Date: 0 10/30/2024 Generated for Carlos fernandes/Jarret/Leeitting on: 0 01/02/2025 10:00 AM EDT History and Physical Notes * HPI (History of Present Illness) Category Sub-Category Detail Notes Category Not es General Patient present s for a follow-up for COPD. Patient is using Incruse and reports minimal benefit. Patient complains of SOB with exertion. Patient admits to smoking 10-16 cigarettes per day. Patient recently had a CT Chest performed on 10/26/2024. Patient complains of ongoing vision issues while taking Incruse.Patient complains of elevated blood pressure readings and is concerned the Incruse is causing the elevated readings. STOP-BANG Sleep Apnea Questionnaire STOP Do you SNORE loudly (louder than talking or loud enough to be heard through closed doors)?: Yes Do you often feel TIRED, fatigued, or sl eepy during daytime?: Yes Has anyone OBSERVED you stop breathing d uring your sleep?: No Do you have or are you being treated for high blood PRESSURE?: Yes BANG BMI more than 35kg/m2?: No AGE over 50 years old?: Yes NECK circumference > 16 inches (40cm)?: No GENDER: Male?: No Total Score: Yes 3-4 Intermediate risk of TARA Examination Category Sub-Category Detail Notes Category Not es Exam GENERAL APPEARANCE: Appears stated age Skin Normal Mouth [place] and moist Trachea Midline Chest Normal Respiratory Normal Movements, Ef fort Normal Auscultation Diminished with mild expiratory wheezes and coarse breath sounds Cardiac Regular rate and rhy thm Gastrointestinal Normal Vascular No edema Musculoskeletal Normal posture Neurological Focal, intact Psychiatric Alert and oriented x 3 Mentation/Cognition Normal Oropharynx Mallampati Class III
--- NOTE | 2025-01-02 | US_ITS ---
The [address] [address] Patient Name: MALACHI FOSTER MRN: [id number] date: 1960 Sex: F Assigned Patient Location: US Current Patient Location: US Accession/Order Number: [id number] Exam Date: 01/02/2025 11:14 Report Date: 01/02/2025 11:18 At the request of: LIZANDRO ANN DO Procedure: US right upper quadrant LIMITED RIGHT UPPER QUADRANT ABDOMINAL ULTRASOUND CLINICAL HISTORY: Epigastric Pain and vomiting COMPARISON: 04/26/2020 CT The gallbladder is physiologically distended without shadowing calculi, wall thickening or pericholecystic fluid. No intra- or extrahepatic biliary dilatation is evident. The common duct measures 4 mm. The liver is normal in echogenicity. No intrahepatic masses are seen. There is appropriate hepatopetal flow within the main portal vein. The pancreas shows no significant sonographic abnormality. Cursory evaluation of the right kidney reveals a mildly distended extrarenal pelvis. No fluid is present within Hanley's pouch. US/US right upper quadrant IMPRESSION: NO GALLBLADDER PATHOLOGY. MILD RIGHT RENAL PELVIECTASIS. Impression dictated by: Mely Story M.D. 01/02/2025 11:18 AM Dictation Location: [place] [address] Electronically authenticated by: [id number] Y Date: 01/02/2025 11:18
--- OUTSIDE RECORDS SUMMARY | 2025-01-02 09:59 | XMS_ITS | Clinical Summary ---
Author Organization [facility] Address [address] [place] [address] Care Team Providers Care Heating Repair Technician Name Role Phone Clint Veras Faye GARCIA Primary Care Provider [phone] Allergies Active Allergy Reactions Criticality Noted Date Comments Caffeine Intolerance 03/05/2016 Propoxyphene N-Acetaminophen Itching 03/05/2016 Cyclobenzaprine Hcl Other: See Comments 018 Increase in blood pressure and pulse Bupropion Hcl Itching 03/05/2016 Medications Progesterone Micronized, Bulk, 100 % powd 8 Active diclofenac, EC, (VOLTAREN) 75 mg EC tablet Take 75 mg by mouth once daily. 8 Active lidocaine (LIDODERM) 5 % Apply 1 Patch as directed every 24 hours. Active acetaminophen (TYLENOL EXTRA STRENGTH) 500 mg tablet Take 500 mg by mouth every 8 hours as needed. Active docusate sodium (COLACE) 100 mg capsule Take 1 capsule by mouth twice daily. 60 capsule 1 8 Active ibuprofen (MOTRIN) 600 mg tablet Take 1 tablet by mouth every 6 hours as needed for Pain. 60 tablet 1 8 Active escitalopram oxalate (LEXAPRO) 5 mg tablet escitalopram 5 mg tablet Active ESTRIOL MICRONIZED, BULK, MISC Active Active Problems Problem Noted Date Diagnosed Date BRETT III (vulvar intraepithelial neoplasia III) 0 10/05/2017 Overview (10/05/2017): Added automatically from request for surgery [id number] Intercostal pain 03/05/2016 Mixed hyperlipidemia 03/05/2016 Abnormal stress test 03/05/2016 Encounters Date Type Department Care Team Description 10/11/2024 [place] [address] Provider, [facility] Medicare Coverage of Physical Exams from Last 3 Months Family History Medical History Relation Comments Heart Brother Cardiac Stent Pl acement Heart Father d. @ 42 [place] Cancer Mother Skin Thyroid Mother Heart Paternal Grandfather d. @ 45 of [place] Heart Sister Relation Status Comments Brother Father Mother Paternal Grandfather Sister Social History Tobacco Use Types Packs/Day Years Used Date Smoking Tobacco: Every Day Cigarettes 0.5 43.2 Started: 10/17/1981 Smokeless Tobacco: Never Alcohol Use Standard Drinks/Week Comments Yes 28 (1 standard drink = 0.6 oz pu re alcohol) Area Deprivation Index Answer Date Wily rded National Score (1-100), lower number is lower ri sk Not on file 06/05/2020 State Score (1-10), lower number is lower risk N ot on file 06/05/2020 Data from: https://www.neighborhoodatlas.medicine.[facility]/. 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 Not on file Not on file Not on f ile Last Filed Vital Signs Vital Sign Reading Time Taken Comments Blood Pressure 171/86 07/14/2018 7:57 AM EST rec hecked Pulse 84 07/14/2018 7:57 AM EST Temperature 36.8 C (98.2 F) 07/14/2018 7:56 AM EST Respiratory Rate 18 07/14/2018 7:56 AM EST Oxygen Saturation 95% 07/14/2018 7:56 AM EST Inhaled Oxygen Concentration - - Weight 75.2 kg (165 lb 12.8 oz) 07/14/2018 7:56 AM EST Height 157.5 cm (5' 2.01 ) 07/14/2018 7:56 AM ES T Body Mass Index 30.32 07/14/2018 7:56 AM EST Plan of Treatment Health Maintenance Due Date Last Done Comments Anxiety Screening 10/11/1977 Depression Screening 10/11/1977 HIV Screening 10/11/1977 Hepatitis C Screening 10/11/1977 DTaP,Tdap,Td Vaccine (1 - Tdap) 10/11/[address] Colonography 10/11/2004 Cologuard (FIT-DNA) 10/11/2004 Colonoscopy 10/11/2004 Colorectal Cancer Screening 10/11/2004 Fecal Occult Blood 10/11/2004 Lipid Screening 10/11/2004 Sigmoidoscopy 10/11/2004 Pneumococcal Vaccine: 50+ (1 of 1 - PCV) 10/11/2009 Shingrix Vaccine (1 of 2) 10/11/2009 Diabetes Screening 09/02/2022 09/03/2019, 0 08/28/2019, 10/19/2017 Covid-19 Vaccine (2 - season) 02/26/202403/2021 Advance Directive Discussion 10/11/2024 Bone Density Screening 10/11/2024 Influenza Vaccine (#1) 2025 RSV Vaccine (1 - 1-dose 75+ series) 10/11/2034 Procedures Procedure Name Priority Date/Time Associated Diagnosis Comments COMPREHENSIVE METABOLIC PANEL Routine 10/19/2017 1:43 PM EDT Pre-operative clearance BRETT III (vulvar intraepithelial neoplasia III) Mixed hyperlipidemia from Last 3 Months or Most Recently Relevant to Health Maintenance Results * COMP METABOLIC PANEL (10/19/2017 1:43 PM EDT) Protein, Total 7.8 6.3 - 8.0 g/dL 10/20/2017 12:45 AM EDT [facility] Albumin 4.7 3.9 - 4.9 g/dL 10/20/2017 12:45 AM EDT [facility] Calcium 9.9 8.5 - 10.2 mg/dL 10/20/2017 12:45 AM EDT [facility] Bilirubin, Total 0.4 0.2 - 1.3 mg/dL 10/20/2017 12:45 AM EDT [facility] Alkaline Phosphatase 88 32 - 117 U/L 10/20/2017 12:45 AM EDT [facility] AST 20 13 - 35 U/L 10/20/2017 12:45 AM EDT [facility] Glucose 96 74 - 99 mg/dL 10/20/2017 12:45 AM EDT [facility] Comment: The [place] Diabetes Association (ADA) provides guidance for cutoff values for fasting glucose and random glucose. The ADA defines fasting as no caloric intake for at least 8 hours. Fasting plasma glucose results between 100 to 125 mg/dL indicate increased risk for diabetes (prediabetes). Fasting plasma glucose results greater than or equal to 126 mg/dL meet the criteria for diagnosis of diabetes. In the absence of unequivocal hyperglycemia, results should be confirmed by repeat testing. In a patient with classic symptoms of hyperglycemia or hyperglycemic crisis, random plasma glucose results greater than or equal to 200 mg/dL meet the criteria for diagnosis of diabetes. Reference: Standards of Medical Care in Diabetes 2016, [place] Diabetes Association. Diabetes Care. 2016.39(Suppl 1). BUN 13 7 - 21 mg/dL 10/20/2017 12:45 AM [facility] Creatinine 0.74 0.58 - 0.96 mg/dL 10/20/2017 12:45 AM [facility] Sodium 140 136 - 144 mmol/L 10/20/2017 12:45 AM [facility] Potassium 4.6 3.7 - 5.1 mmol/L 10/20/2017 12:45 AM [facility] Chloride 100 97 - 105 mmol/L 10/20/2017 12:45 AM [facility] CO2 25 22 - 30 mmol/L 10/20/2017 12:45 AM [facility] Anion Gap 15 9 - 18 mmol/L 10/20/2017 12:45 AM [facility] ALT 12 7 - 38 U/L 10/20/2017 12:45 AM [facility] eGFR- >60 10/20/2017 12:45 AM [facility] eGFR-All Other Races >60 . 10/20/2017 12:45 AM [facility] Comment: eGFR (Estimated GFR) Units of measure: mL/min/1.73 meters squared eGFR is derived from the reexpressed MDRD Study equation using the following parameters: serum creatinine, age, gender and race. The creatinine assay has been calibrated to be traceable to IDMS. An eGFR <60 mL/min/1.73m2 for >3 months is consistent with chronic kidney disease. Refer to KDOQI guidelines for clinical interpretation. In patients with unstable renal function, e.g. those with acute kidney injury, the eGFR may not accurately reflect actual GFR. Blood specimen (specimen) BLOOD SPECIMEN / Unknown 10/19/2017 1:43 PM EDT 10/19/2017 1:45 PM EDT us Galina Garcia CHILD HEALTH ASSOCIATE.BATTERY TEST ENGINEER LABORATORY Fin al Result [facility] [address] [place] [address] from Last 3 Months or Most Recently Relevant to Health Maintenance Care Teams Heating Repair Technician Relationship Specialty Start Date End Date Clint Veras DO PCP - General Internal Medicine 03/02/16
--- OUTSIDE RECORDS SUMMARY | 2025-01-02 09:59 | XMS_ITS | Clinical Summary ---
Author Organization [employer] Address [id number] [address] [place] [address] Care Team Providers Care Graphic User Interface Designer Name Role Phone Unavailable Primary Care Provider Unavailabl e Allergies Active Allergy Reactions Criticality Noted Date Comments Bupropion Hcl Itching,Rash,Other (See Comments) High 06/27/2004 Caffeine Anxiety,Other (See Comments) Low 03/05/2016 Way over stimulates the patient Cyclobenzaprine Other (See Comments),Palpitat ions High 06/12/2017 Increase in blood pressure and pulse Propoxyphene N-Acetaminophen Itching,Other (See Comments) 06/10/2009 Propoxyphene Napsylate Other (See Comments) High 05/07/2019 Medications atorvastatin (LIPITOR) 20 mg tablet Take 1 tablet by mouth in the morning. 10/03/2020 Active lisinopriL (PRINIVIL,ZESTR IL) 5 mg tablet Take 5 mg by mouth in the morning. 09/03/2021 Active acetaminophen (TYLENOL EXTRA STRENGTH) 500 mg tablet Take 500 mg by mouth as needed in the morning. Active aspirin 81 mg chewable tablet Chew 81 mg and swallow in the morning. Active Active Problems No known active problems Family History Medical History Relation Name Comments Heart disease Brother Heart disease Father Cancer Maternal Grandfather Stroke Maternal Grandmother Cancer Mother Heart disease Paternal Grandmother Heart disease Sister Relation Name Status Comments Brother Father Alive Maternal Grandfather Maternal Grandmother Mother Alive Paternal Grandmother Sister Social History Tobacco Use Types Packs/Day Years Used Date Smoking Tobacco: Every Day Cigarettes 0.5 45.5 Started: 1979 Smokeless Tobacco: Never Alcohol Use Standard Drinks/Week Comments Not Currently 0 (1 standard drink = 0.6 oz pur e alcohol) Childcare Answer Date Recorded Childcare Unknown 12/06/2018 Employment Answer Date Recorded Employment Unknown 12/06/2018 Comments No Sex and Gender Information Value Date Recorded Sex Assigned at Not on file Legal Sex Female 12:10 PM EDT Gender Identity Not on file Sexual Orientation Not on file Last Filed Vital Signs Vital Sign Reading Time Taken Comments Blood Pressure 142/89 09/23/2021 10:23 AM EDT Pulse 82 09/23/2021 10:23 AM EDT Temperature - - Respiratory Rate - - Oxygen Saturation - - Inhaled Oxygen Concentration - - Weight 63.5 kg (140 lb) 09/23/2021 10:23 AM EDT Height 157.5 cm (5' 2 ) 09/23/2021 10:23 AM EDT Body Mass Index 25.61 09/23/2021 10:23 AM EDT Plan of Treatment Health Maintenance Due Date Last Done Comments Depression Screening 1971 Tobacco Screening 1971 Adult BMI Screening 10/11/1977 DTaP,Tdap and Td Vaccines (1 - Tdap) 10/11/1978 Zoster (Shingles) Vaccine (1 of 2) 10/11/2009 COVID-19 Vaccine (2 - season) 02/26/202403/2021 Fall Risk Screening 10/11/2024 Influenza Vaccine 02/25/2025 Medical Devices Not on file Insurance
--- OUTSIDE RECORDS SUMMARY | 2025-01-02 09:59 | XMS_ITS | Encounter Summary ---
Author Organization [facility] Address [address] [place] [address] Care Team Providers Care Executive Secretary Social Welfare Name Role Phone Clint Veras DO Primary Care Provider [phone] Encounter Details Date Type Department Care Team (Late st Contact Info) Description 06/12/2024 Orders Only [facility] [address] [place] [address] Patricia Dougherty MA [address] [place] [address] Social History Tobacco Use Types Packs/Day Years Used Date Smoking Tobacco: Unknown Comments:Current smoker freq uency unknown Alcohol Use Standard Drinks/Week Comments Never 0 (1 standard drink = 0.6 oz pur e alcohol) caffeine: no Comments No Sex and Gender Information Value Date Recorded Sex Assigned at Not on file Legal Sex Female 6:59 PM EDT Gender Identity Not on file Sexual Orientation Not on file documented as of this encounter Plan of Treatment Upcoming Encounters Date Type Department Care Team (Late st Contact Info) Description 05/28/2025 11:00 AM EST Office Visit [facility] [address] [facility] [place] [address] Nimco Fajardo PA [address] [place], [place] [id number] 11/05/2025 11:25 AM EDT Office Visit [facility] [address] [place] [address] Kylah Lemus APRN-PILLING MACHINE OPERATOR [address] [place] [address] documented as of this encounter Procedures Procedure Name Priority Date/Time Associated Diagnosis Comments PAP SMEAR Routine 05/21/2024 12:00 AM EST documented in this encounter Results * Pap Smear (05/21/2024 12:00 AM EST) Swab Cervical swab / Unknown us [facility] ORDERABLES Final Re sult EXTERNAL LAB documented in this encounter Visit Diagnoses Not on filedocumented in this encounter Care Teams Executive Secretary Social Welfare Relationship Specialty Start Date End Date Clint Veras DO PCP - General Internal Medicine 05/16/23 documented as of this encounter
--- OUTSIDE RECORDS SUMMARY | 2025-01-02 09:59 | XMS_ITS | Patient Health Record ---
Author Organization [facility] Address [address] [place] [address] Care Team Providers Care Public Safety Teacher Name Role Phone Be Horn Unavailable [phone] Allergies Allergen (clinical drug ingredient) Drug/Non Drug Allergy documented on EMR Reaction Allergy Type Onset Date Status Wellbutrin Unknown Drug Allergy Active Darvocet A500 Unknown Drug Allergy Act jason Flexeril Unknown Drug Allergy Active Reason For Referral No Information Medications Medication SIG (Take, Route, Frequency, Duration) Notes Start Date End Date Status lisinopril Active atorvastatin Active Baby Aspirin Active Social History Tobacco Use: Social History Observation Description Date Details (start date - stop date) Current Smoker NA - NA Smoking History Question Answer Notes Smoking Status Current Smoker Problems Problem Type SNOMED Code ICD Code Onset Dates Problem Status W/U Status Risk Notes Problem 4547952884509396 Arthritis of carpometacarpal (CMC) joint of left thumb (M18.12) Active confirmed Problem [id number] 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
--- OUTSIDE RECORDS SUMMARY | 2025-01-02 09:59 | XMS_ITS | Encounter Summary ---
Author Organization [employer] Address [id number] [address] [place] [address] Care Team Providers Care Bankruptcy Law Specialist Name Role Phone Unavailable Primary Care Provider Unavailabl e Encounter Details Date Type Department Care Team (Late st Contact Info) Description 09/03/2021 Orders Only [facility] [address] [place] [id number] Ref Prov, [place] [address] Social History Tobacco Use Types Packs/Day Years Used Date Smoking Tobacco: Never Assessed Childcare Answer Date Recorded Childcare Unknown 12/06/2018 Employment Answer Date Recorded Employment Unknown 12/06/2018 Comments Unknown Sex and Gender Information Value Date Recorded Sex Assigned at Not on file Legal Sex Female 12:10 PM EDT Gender Identity Not on file Sexual Orientation Not on file COVID-19 Exposure Response Date Recorded In the last month, have you been in contact with someone who was confirmed or suspected to have Coronavirus / COVID-19? No / Unsure 08/11/2021 3:52 PM EST documented as of this encounter Plan of Treatment Not on file documented as of this encounter Visit Diagnoses Not on filedocumented in this encounter
--- OUTSIDE RECORDS SUMMARY | 2025-01-02 09:59 | XMS_ITS | Encounter Summary ---
Author Organization [facility] Address [address] [place] [address] Care Team Providers Care Process Improvement Manager Name Role Phone Clint Veras DO Primary Care Provider [phone] Encounter Details Date Type Department Care Team (Late st Contact Info) Description 05/27/2023 Clinisync Result Encounter [facility] External Department Unsolicited Adrian Florence DO [address] [place], [facility] Social History Tobacco Use Types Packs/Day Years Used Date Smoking Tobacco: Unknown Comments:Current smoker freq uency unknown Alcohol Use Standard Drinks/Week Comments Never 0 (1 standard drink = 0.6 oz pur e alcohol) caffeine: no Comments Unknown Sex and Gender Information Value Date Recorded Sex Assigned at Not on file Legal Sex Female 6:59 PM EDT Gender Identity Not on file Sexual Orientation Not on file documented as of this encounter Plan of Treatment Upcoming Encounters Date Type Department Care Team (Late st Contact Info) Description 05/28/2025 11:00 AM EST Office Visit [facility] [address] [place] [address] Nimco Fajardo PA [address] [place], [place] [address] 11/05/2025 11:25 AM EDT Office Visit [facility] [address] [place] [address] Kylah Lemus, OUTSIDE SALES PROFESSIONAL-MEDIA PRODUCER [address] [place] [address] documented as of this encounter Procedures Procedure Name Priority Date/Time Associated Diagnosis Comments MM TOMOSYNTHESIS SCREENING BI 05/27/2023 2:00 PM EST documented in this encounter Results * MM TOMOSYNTHESIS SCREENING BI (05/27/2023 2:00 PM EST) Anatomical Region Laterality Modality Other 05/27/2023 2:00 PM EST Narrative 05/27/2023 2:00 PM EST [address] [address] Mammography Report Signed Patient: MALACHI FOSTER MR#: [id number] : 1960 Acct:[id number] Age/Sex: 62 / F ADM Date: 05/26/23 Loc: MAMMO Attending Dr: Adrian Florence D.O. Ordering Physician: Adrian Florence D.O. Results: Date of Service: 05/26/23 Follow Up: Procedure(s): MM tomosynthesis screening BI Accession Number(s): [id number] cc: Clint Veras D.O.; Adrian Florence D.O. Patient Name: MALACHI FOSTER MR#: [id number] : 1960 Exam Date: 05/26/2023 Ordering Doctor: DR Adrian Florence . RADIOLOGY REPORT PROCEDURE: MM TOMOSYNTHESIS SCREENING BI COMPARISON: MG MAMM SCREEN 3D ARNOLDO CAD, 05/11/2022. MG MAMM SCREEN 3D ARNOLDO CAD, 04/28/2021. MG MAMM SCREEN ARNOLDO W CAD, 04/01/2020. MG MAMM ARNOLDO SCRN W CAD DIG, 03/26/2013. INDICATIONS: Screening for malignant neoplasm Calculator Name NCI Breast Cancer Risk Assessment Tool 5 Year Breast Cancer Risk 1.70% Lifetime Breast Cancer Risk 7.40% Personal Breast Cancer No Personal Ovarian Cancer No Treatments None Family Cancers Sister with uterine cancer at age 68. LOCATION: [facility] BREAST COMPOSITION: Scattered areas fibroglandular density. FINDINGS: DIAGNOSTIC CATEGORY 1--NEGATIVE. RIGHT BREAST: No significant suspicious finding. No significant change has occurred. LEFT BREAST: No significant suspicious finding. No significant change has occurred. RECOMMENDATIONS: ROUTINE MAMMOGRAM AND CLINICAL EVALUATION IN 12 MONTHS. PLEASE NOTE: A NORMAL MAMMOGRAM DOES NOT EXCLUDE THE POSSIBILITY OF BREAST CANCER. A CLINICALLY SUSPICIOUS PALPABLE LUMP SHOULD BE BIOPSIED. Dictated by: Be Barber M.D. on 05/27/2023 at 13:58 Approved by: Be Barber M.D. on 05/27/2023 at 14:00 Dictated By: Be Barber M.D. Signed By: 05/27/23 140 DD/ 99 TD/TT: Patient Relations Representative: Procedure Note Radiology, Radiologist, MD - 05/27/2023 [place] [address] Mammography Report Signed Patient: MALACHI FOSTER LMR#: [id number] : 1960Acct:[id number] Age/Sex: 62 / FADM Date: 05/26/23 Loc: MAMMO Attending Dr: Adrian Florence D.O. Ordering Physician: Adrian Florence D.O.Results: Date of Service: 05/26/23Follow Up: Procedure(s): MM tomosynthesis screening BI Accession Number(s): [id number] cc: Clint Veras D.O.; Adrian Florence D.O. Patient Name: MALACHI FOSTER MR#: [id number] : 1960 Exam Date: 05/26/2023 Ordering Doctor: DR Adrian Florence . RADIOLOGY REPORT PROCEDURE: MM TOMOSYNTHESIS SCREENING BI COMPARISON: MG MAMM SCREEN 3D ARNOLDO CAD, 05/11/2022. MG MAMM SCREEN 3DBIL CAD, 04/28/2021. MG MAMM SCREEN ARNOLDO W CAD, 04/01/2020. MG MAMM ARNOLDO SCRNW CAD DIG, 03/26/2013. INDICATIONS: Screening for malignant neoplasm Calculator Name NCI Breast Cancer Risk Assessment Tool 5 Year Breast Cancer Risk 1.70% Lifetime Breast Cancer Risk 7.40% Personal Breast Cancer No Personal Ovarian Cancer No Treatments None Family Cancers Sister with uterine cancer at age 68. LOCATION: [facility] BREAST COMPOSITION: Scattered areas fibroglandular density. FINDINGS: DIAGNOSTIC CATEGORY 1--NEGATIVE. RIGHT BREAST: No significant suspicious finding. No significant changehas occurred. LEFT BREAST: No significant suspicious finding. No significant changehas occurred. RECOMMENDATIONS: ROUTINE MAMMOGRAM AND CLINICAL EVALUATION IN 12 MONTHS. PLEASE NOTE: A NORMAL MAMMOGRAM DOES NOT EXCLUDE THE POSSIBILITY OFBREAST CANCER. A CLINICALLY SUSPICIOUS PALPABLE LUMP SHOULD BE BIOPSIED. Dictated by: Be Barber M.D. on 05/27/2023 at 13:58 Approved by: Be Barber M.D. on 05/27/2023 at 14:00 Dictated By: Be Barber M.D. Signed By:05/27/23 1401 DD/ 1400 TD/TT: Patient Relations Representative: Adrian Florence DO [facility] Final Result documented in this encounter Visit Diagnoses Not on filedocumented in this encounter Care Teams Process Improvement Manager Relationship Specialty Start Date End Date Clint Veras DO PCP - General Internal Medicine 05/16/23 documented as of this encounter
--- NOTE | 2025-01-02 10:00 | XR_ITS ---
The [address] [address] Patient Name: MALACHI FOSTER MRN: [id number] date: 1960 Sex: F Assigned Patient Location: US Current Patient Location: US Accession/Order Number: [id number] Exam Date: 01/02/2025 15:09 Report Date: 01/02/2025 15:10 At the request of: LIZANDRO ANN DO Procedure: XR hip LT 2V w/ pelvis Single view pelvis with 2 views of the left hip HISTORY: Chronic lumbar pain with radiation to left leg COMPARISON: 05/11/2022 Similar mild degeneration with marginal spurring. No AVN. Adequate alignment without acute displaced fracture. XR/XR hip LT 2V w/ pelvis IMPRESSION: Similar mild left hip degeneration Impression dictated by: Otis Weiner M.D. 01/02/2025 3:10 PM Dictation Location: [place] [address] Electronically authenticated by: [id number] Y Date: 01/02/2025 15:10
--- NOTE | 2025-01-02 10:00 | XR_ITS ---
[address] [address] Patient Name: MALACHI FOSTER MRN: [id number] date: 1960 Sex: F Assigned Patient Location: [place] Current Patient Location: [place] Accession/Order Number: [id number] Exam Date: 01/02/2025 15:06 Report Date: 01/02/2025 15:09 At the request of: LIZANDRO ANN DO Procedure: XR lumbar spine 6V w bending 7 views Lumbar Spinewith bending HISTORY: Chronic lumbar back pain with radiation to left leg. Worsening. COMPARISON: 08/24/2021 POSTSURGICAL CHANGES: None BONY ALIGNMENT: Adequate HYPERMOBILITY:No hypermobility LISTHESIS:Minor lower lumbar listhesis FRACTURE: None DEGENERATIVE CHANGES: Moderate L4-5 and L5-S1 disc space narrowing. Lower lumbar facet degeneration. SOFT TISSUES: Unremarkable BONY MINERALIZATION:Adequate XR/XR lumbar spine 6V w bending IMPRESSION: No hypermobility. Mild progression of extensive lower lumbar degeneration. Diffuse osteopenia. Impression dictated by: Otis Weiner M.D. 01/02/2025 3:09 PM Dictation Location: [place] [address] Electronically authenticated by: [id number] Y Date: 01/02/2025 15:09
--- OUTSIDE RECORDS SUMMARY | 2025-01-02 10:00 | XMS_ITS | Encounter Summary ---
Author Organization [facility] Address [address] [place] [address] Care Team Providers Care Lead Php Developer Name Role Phone Clint Veras DO Primary Care Provider [phone] Encounter Details Date Type Department Care Team (Late st Contact Info) Description 06/15/2024 Clinisync Result Encounter [facility] External Department Unsolicited Nimco Trimble PA [address] [place], [place] [address] Social History Tobacco Use Types Packs/Day Years [...] EST Office Visit [facility] [address] [facility] [place] [address] Nimco Trimble PA [address] [place], [facility]11 11/05/2025 11:25 AM EDT Office Visit [facility] [address] [place] [address] Kylah Lemus, FORENSIC PHOTOGRAPHER-REEL STRIPPER [address] [place] [address] documented as of this encounter Procedures Procedure Name Priority Date/Time Associated Diagnosis Comments XR DEXA AXIAL SKELETON 06/15/2024 11:53 AM EST documented in this encounter Results * XR DEXA AXIAL SKELETON (06/15/2024 11:53 AM EST) Anatomical Region Laterality Modality Other 06/15/2024 11:5 3 AM EST Narrative 06/15/2024 2:46 PM EST [address] [address] XRay Report Signed Patient: CANDELARIA FOSTER MR#: [id number] : 1960 Acct:[id number] Age/Sex: 63 / F ADM Date: 06/15/24 Loc: MAMMO Attending Dr: Nimco Trimble Ordering Physician: Nimco Trimble Date of Service: 06/15/24 Procedure(s): XR DEXA axial skeleton Accession Number(s): [id number] cc: Nimco Trimble; Clint Veras D.O. [address] [address] Patient Name: CANDELARIA FOSTER MRN: [id number] date: 1960 Sex: F Assigned Patient Location: MAMMO Current Patient Location: MAMMO Accession/Order Number: [id number] Exam Date: 06/15/2024 09:07 Report Date: 06/15/2024 11:53 At the request of: NIMCO TRIMBLE Procedure: XR DEXA axial skeleton EXAMINATION: XR DEXA axial skeleton, 06/15/2024 9:07 AM EST HISTORY: Osteoporosis Post Menopausal COMPARISON: 2021, 2019, 2015. TECHNIQUE: Dual-energy X-ray absorptiometry (DEXA) bone density study performed for the axial skeleton. FINDINGS: Bone mineral density AP spine L1-L4 measures 0.950 g percent meters per. T score -1.9. Osteopenia. Moderate fracture risk Bone mineral density left femoral neck measures 0.778 g/sq cm. T score -1.9. Osteopenia XR/XR DEXA axial skeleton IMPRESSION: Osteopenia. Moderate fracture risk Pharmacologic treatment recommendations * No uniform recommendation applies to all patients. Management plans must be individualized. * Consider initiating pharmacologic treatment in postmenopausal women and men >= 50 years of age who have the following: Primary fracture prevention: * T-score <= - 2.5 at the femoral neck, total hip, lumbar spine, 33% radius (some uncertainty with existing data) by DXA. * Low bone mass (osteopenia: T-score between - 1.0 and - 2.5) at the femoral neck or total hip by DXA with a 10-year hip fracture risk >= 3% or a 10-year major osteoporosis-related fracture risk >= 20% (i.e., clinical vertebral, hip, forearm, or proximal humerus) based on the [place]-adapted FRAXregistered model. Secondary fracture prevention: * Fracture of the hip or vertebra regardless of BMD [4, 5]. * Fracture of proximal humerus, pelvis, or distal forearm in persons with low bone mass (osteopenia: T-score between - 1.0 and - 2.5). The decision to treat should be individualized in persons with a fracture of the proximal humerus, pelvis, or distal forearm who do not have osteopenia or low BMD [12, 13]. Cheryl MS, Mony SL, Rosalinda KL, Dmitry EM, Jovani KG, AJ, Gauri ES. The clinician's guide to prevention and treatment of osteoporosis. Osteoporos Int. 2021;33(10):3995-0760. doi: 10.1007/x36401-860-89174-p. Epub 2021Oct 22. Erratum in: Osteoporos Int. 2021Jan 21;: PMID: 65235845; PMCID: [id number]. Electronically authenticated by: ELMER ANTOINE Date: 06/15/2024 11:53 Dictated By: Elmer Antoine M.D. Signed By: 06/15/24 1446 DD/ 1153 TD/TT: Visual Basic Programmer: Procedure Note Radiology, Radiologist, - 06/15/[address] [address] XRay Report Signed Patient: CANDELARIA FOSTER LMR#: [id number] : 1960Acct:[id number] Age/Sex: 63 / FADM Date: 06/15/24 Loc: MAMMO Attending Dr: Nimco Trimble Ordering Physician: Nimco Trimble Date of Service: 06/15/24 Procedure(s): XR DEXA axial skeleton Accession Number(s): [id number] cc: Nimco Trimble; Clint Veras D.O. The [address] [address] Patient Name: CANDELARIA FOSTER MRN: [id number] date: 1960 Sex: F Assigned [facility]: [facility] Current [facility] Location: [facility] Accession/Order Number: [id number] Exam Date: 06/15/2024 09:07 Report Date: 06/15/2024 11:53 At the request of: NIMCO TRIMBLE Procedure: XR DEXA axial skeleton EXAMINATION: XR DEXA axial skeleton, 06/15/2024 9:07 AM EST HISTORY: Osteoporosis Post Menopausal COMPARISON: 2021, 2019, 2015. TECHNIQUE: Dual-energy X-ray absorptiometry (DEXA) bone density study performed for the axial skeleton. FINDINGS: Bone mineral density AP spine L1-L4 measures 0.950 g percent meters per. T score -1.9. Osteopenia. Moderate fracture risk Bone mineral density left femoral neck measures 0.778 g/sq cm. T score-1.9. Osteopenia XR/XR DEXA axial skeleton IMPRESSION: Osteopenia. Moderate fracture risk Pharmacologic treatment recommendations * No uniform recommendation applies to all patients. Management plans mustbe individualized. * Consider initiating pharmacologic treatment in postmenopausal women andmen >= 50 years of age who have the following: Primary fracture prevention: * T-score <= - 2.5 at the femoral neck, total hip, lumbar spine, 33%radius (some uncertainty with existing data) by DXA. * Low bone mass (osteopenia: T-score between - 1.0 and - 2.5) at thefemoral neck or total hip by DXA with a 10-year hip fracture risk >= 3% or [id number] major osteoporosis-related fracture risk >= 20% (i.e., clinical vertebral, hip, forearm, or proximal humerus) based on the US-adapted FRAXregisteredmodel. Secondary fracture prevention: * Fracture of the hip or vertebra regardless of BMD [4, 5]. * Fracture of proximal humerus, pelvis, or distal forearm in persons withlow bone mass (osteopenia: T-score between - 1.0 and - 2.5). The decision totreat should be individualized in persons with a fracture of the proximalhumerus, pelvis, or distal forearm who do not have osteopenia or low BMD [12, 13]. Cheryl MS, Mony SL, Rosalinda KL, Dmitry EM, Jovani KG, AJ,Gauri ES. The clinician's guide to prevention and treatment of osteoporosis.Osteoporos Int. 2021;33(10):8210-6822. doi: 10.1007/r59253-099-40139-w. Epub . Erratum in: Osteoporos Int. 2021Jan 21;: PMID: 29514682; PMCID: [id number]. Electronically authenticated by: ELMER ANTOINE Date: 06/15/2024 11:53 Dictated By: Elmer Antoine M.D. Signed By:06/15/24 1446 DD/ 1153 TD/TT: Visual Basic Programmer: Nimco [facility] Final Result documented in this encounter Visit Diagnoses Not on filedocumented in this encounter Care Teams Lead Php Developer Relationship Specialty Start Date End Date Clint Veras DO PCP - General Internal Medicine 05/16/23 documented as of this encounter
--- OUTSIDE RECORDS SUMMARY | 2025-01-02 10:00 | XMS_ITS | Encounter Summary ---
Author Organization [facility] Address [address] [place] [address] Care Team Providers Care Sed Middle School Teacher Name Role Phone Clint Veras DO Primary Care Provider [phone] Encounter Details Date Type Department Care Team (Late st Contact Info) Description 06/15/2024 Clinisync Result Encounter [facility] External Department Unsolicited Nimco Fajardo PA [address] [facility] [address] [place], [place] [address] Social History Tobacco Use Types Packs/Day Years [...] EST Office Visit [facility] OB [address] [place] [address] Nimco Fajardo PA [address] [facility] [facility] [address] [place], [facility]11 11/05/2025 11:25 AM EDT Office Visit [facility] [address] [place] [address] Kylah Lemus, PREPARER SAMPLES AND REPAIRS-ELEMENTARY SCIENCE TEACHER [address] [place] [address] documented as of this encounter Procedures Procedure Name Priority Date/Time Associated Diagnosis Comments MM TOMOSYNTHESIS SCREENING BI 06/15/2024 12:42 PM EST documented in this encounter Results * MM TOMOSYNTHESIS SCREENING BI (06/15/2024 12:42 PM EST) Anatomical Region Laterality Modality Other 06/15/2024 12:4 2 PM EST Narrative 06/15/2024 12:42 PM EST The [address] [address] Mammography Report Signed Patient: MALACHI FOSTER MR#: [id number] : 1960 Acct:[id number] Age/Sex: 63 / F ADM Date: 06/15/24 Loc: MAMMO Attending Dr: Nimco Fajardo Ordering Physician: Nimco Fajardo Results: Date of Service: 06/15/24 Follow Up: Procedure(s): MM tomosynthesis screening BI Accession Number(s): [id number] cc: Nimco Fajardo; Clint Veras D.O. Patient Name: MALACHI FOSTER MR#: [id number] : 1960 Exam Date: 06/15/2024 Ordering Doctor: AZUL Fajardo . RADIOLOGY REPORT PROCEDURE: MM TOMOSYNTHESIS SCREENING BI COMPARISON: MG MAMM SCREEN 3D ARNOLDO CAD, 05/11/2022. MM TOMOSYNTHESIS SCREENING BI, 05/26/2023. INDICATIONS: Screening Calculator Name NCI Breast Cancer Risk Assessment Tool 5 Year Breast Cancer Risk 1.80% Lifetime Breast Cancer Risk 7.20% Personal Breast Cancer No Personal Ovarian Cancer No Treatments None Family Cancers Sister with uterine cancer at age 68. LOCATION: [facility] BREAST COMPOSITION: There are scattered areas of fibroglandular density. FINDINGS: DIAGNOSTIC CATEGORY 1--NEGATIVE. NO CHANGE FROM COMPARISON ASSESSMENT. RIGHT BREAST: No significant suspicious finding. LEFT BREAST: No significant suspicious finding. RECOMMENDATIONS: ROUTINE MAMMOGRAM AND CLINICAL EVALUATION IN 12 MONTHS. PLEASE NOTE: A NORMAL MAMMOGRAM DOES NOT EXCLUDE THE POSSIBILITY OF BREAST CANCER. A CLINICALLY SUSPICIOUS PALPABLE LUMP SHOULD BE BIOPSIED. Dictated by: Jhonathan Vanegas MD on 06/15/2024 at 12:40 Approved by: Jhonathan Vanegas MD on 06/15/2024 at 12:41 Dictated By: Jhonathan Vanegas M.D. Signed By: 06/15/24 1242 DD/ 124 TD/TT: Pipe Production Worker: Procedure Note Radiology, Radiologist, MD - 06/15/2024 [place] [address] Mammography Report Signed Patient: MALACHI FOSTER LMR#: [id number] : 1960Acct:[id number] Age/Sex: 63 / FADM Date: 06/15/24 Loc: MAMMO Attending Dr: Nimco Fajardo Ordering Physician: Nimco FajardoResults: Date of Service: 06/15/24Follow Up: Procedure(s): MM tomosynthesis screening BI Accession Number(s): [id number] cc: Nimco Fajardo; Clint Veras D.O. Patient Name: MALACHI FOSTER MR#: [id number] : 1960 Exam Date: 06/15/2024 Ordering Doctor: AZUL Fajardo . RADIOLOGY REPORT PROCEDURE: MM TOMOSYNTHESIS SCREENING BI COMPARISON: MG MAMM SCREEN 3D ARNOLDO CAD, 05/11/2022. MM TOMOSYNTHESIS SCREENING BI, 05/26/2023. INDICATIONS: Screening Calculator Name NCI Breast Cancer Risk Assessment Tool 5 Year Breast Cancer Risk 1.80% Lifetime Breast Cancer Risk 7.20% Personal Breast Cancer No Personal Ovarian Cancer No Treatments None Family Cancers Sister with uterine cancer at age 68. LOCATION: [facility] BREAST COMPOSITION: There are scattered areas of fibroglandulardensity. FINDINGS: DIAGNOSTIC CATEGORY 1--NEGATIVE. NO CHANGE FROM COMPARISON ASSESSMENT. RIGHT BREAST: No significant suspicious finding. LEFT BREAST: No significant suspicious finding. RECOMMENDATIONS: ROUTINE MAMMOGRAM AND CLINICAL EVALUATION IN 12 MONTHS. PLEASE NOTE: A NORMAL MAMMOGRAM DOES NOT EXCLUDE THE POSSIBILITY OFBREAST CANCER. A CLINICALLY SUSPICIOUS PALPABLE LUMP SHOULD BE BIOPSIED. Dictated by: Jhonathan Vanegas MD on 06/15/2024 at 12:40 Approved by: Jhonathan Vanegas MD on 06/15/2024 at 12:41 Dictated By: Jhonathan Vanegas M.D. Signed By:06/15/24 1242 DD/ 1242 TD/TT: Pipe Production Worker: Nimco [facility] Final Result documented in this encounter Visit Diagnoses Not on filedocumented in this encounter Care Teams Sed Middle School Teacher Relationship Specialty Start Date End Date Clint Veras DO PCP - General Internal Medicine 05/16/23 documented as of this encounter
--- OUTSIDE RECORDS SUMMARY | 2025-01-02 10:00 | XMS_ITS | Encounter Summary ---
Author Organization [facility] Address [address] [place] [address] Care Team Providers Care Rehabilitation Aide/Scheduler Name Role Phone Clint Veras DO Primary Care Provider [phone] Encounter Details Date Type Department Care Team (Late Contact Info) Description 06/15/2024 Abstract [facility] OB [address] [facility] [place] [address] Adrian Florence DO [address] [place] [address] Dr Mahesh [place], [facility]11 Social History Tobacco Use Types Packs/Day Years [...] 05/28/2025 11:00 AM EST Office Visit [facility] OB [address] [place] [address] Nimco Fajardo PA [address] [place], [facility]11 11/05/2025 11:25 AM EDT Office Visit [facility] [address] [place] [address] Kylah Lemus APRN-WEIGHER AND GRADER [address] [place] [address] documented as of this encounter Visit Diagnoses Not on filedocumented in this encounter Care Teams Rehabilitation Aide/Scheduler Relationship Specialty Start Date End Date Clint Veras DO PCP - General Internal Medicine 05/16/23 documented as of this encounter
--- OUTSIDE RECORDS SUMMARY | 2025-01-02 10:00 | XMS_ITS | Data Portability ---
Author Organization [place] [facility] Address [address] [place] [address] Assessment Encounter Date Assessment Date Assessment LastModified by Organization Details LastModified Time 06/30/2018 06/30/2018 IMPRESSION: 1. Bilateral hand numbness and pain. 2. 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 3. Minimally abnormal electrodiagnostic testing consistent with borderline right carpal tunnel syndrome and no evidence of left carpal tunnel syndrome. 4. No evidence of cervical radiculopathy or generalized peripheral neuropathy. 5. Osteoarthritis of the hands. 6. Possible tendinitis. RECOMMENDATIONS: 1. The patient was off work for 12 days for [employer] and she feels that her symptoms were markedly improved after she had the injection and was off work. If her symptoms worsen or recur, follow up electrodiagnostic studies can be compared to today's results. 2. I gave her a handout regarding carpal tunnel syndrome including some exercises to do. Since her findings are so mild on today's exam, the exercises and other conservative care may be helpful for her. 3. If she has not had laboratory studies to check her for inflammatory arthritis, you may want to consider doing that. 4. She is to follow up with Dr. Horn for further treatment. 5. 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 6. We discussed that job rotation is important. 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 cc: William Veras D.O. kdensel Not available 07/03/2018 11:16:38 Plan of Treatment Reminders Order Date Submit Date Provider Last Modified By Organization Details Last Modified Time Details Appointments None record ed. Lab None record ed. Referral None record ed. Procedures None record ed. Surgeries None record ed. Imaging None record ed. Medication Orders None record ed. Patient TargetsNo targets recorded. Patient Instructions Encounter Date Encounter Id Patient Instructions Last Modified By Organization Details Last Modified Time 06/30/2018 [id number] carpal tunnel syndrome education [email or web address] Not available 07/01/2018 19:10:04 Reason for Referral None Reported. Problems Name Problem SNOMED Code Status Onset Date Resolution Date Notes Provider Name and Address Organization Details Recorded Time Carpal tunnel syndrome of right wrist 7614210784664 08 Active 2018 Wilma Casiano MD [address], [place], [address], [facility] [place] [facility] 9 19:09:49 Pain of bilateral hands 6704409092687 9109 Active 2018 Wilma Casiano MD [address], [place], [address], [facility] 9 19:09:50 Paresthesia of upper limb 01742732 Active 2018 Wilma Casiano MD [address], [place], [address], [facility] 9 19:09:51 Osteoarthri tis of joint of hand 58306231 Active 2018 Wilma Casiano MD [address] [place], [address], [facility] 9 19:09:52 Problem Notes None recorded. Procedures Surgical History Date Name Laterality Status Provider Name and Address Organization Details Recorded Time 06/30/2018 EMG/NCS completed Mely Francis [place] [facility] 07/05/2018 10:43:31 Imaging Results None recorded. Procedure Notes None recorded. Medical Equipment None Reported. Medications Name Sig Start Date Stop Date Status Note LastModified by Organization Details LastModified Time prednisone 20 mg tablet active Not Available Not Available Not Available acetaminophen 300 mg-codeine 30 mg tablet active Not Available Not Available Not Available diclofenac sodium 75 mg tablet,delayed release active Not Available Not Available Not Available ibuprofen 600 mg tablet active Not Available Not Available Not Available estriol micronized (bulk) 100 % powder active Not Available Not Available Not Available oxycodone 5 mg tablet active Not Available Not Available Not Available cyclobenzaprine 5 mg tablet active Not Available Not Available No t Available escitalopram 5 mg tablet active Not Available Not Available Not Available progesterone micronized (bulk) 100 % powder active Not Available Not Available Not Available Vitals None Recorded Social History None recorded. Functional Status None recorded. Mental Status None recorded. Family History Nothing Reported. Medical History No medical history recorded. Gynecological HistoryNo gynecological history recorded. Obstetrics History GPAL:G 0 P 0 0 0 0 Past Encounters Encounter ID Performer Location Encounter Start Date Encounter Closed Date Diagnosis/Indication Diagnosis SNOMED-CT Code Diagnosis ICD10 Code Diagnosis Note [id number] Wilma Casiano MD [facility] [address] [place] [address] 06/30/2018 08:32:50 07/03/2018 08:02:03 Carpal tunnel syndrome of right wrist [id number] 97138 G56.01 Pain of bi lateral hands [id number] 7499518 M79.641 M79.642 Paresthesi a of upper limb 12261192 R20.2 Osteoarthr itis of joint of hand 58320122 M19.049 Health Concerns Section Related Observation LastModified by Organization Detai ls LastModified Time None Recorded Concern Status LastModified by Organization Details LastModified Time None Recorded Advance Directives Directive None Recorded Payers Insurance Date Sequence Insurance Name Policy Number Policy Alvarez Covered Member ID Alvarez Member ID Guarantor Name 07/28/2018 1 [employer] - [employer] (TRADITIONAL) WHIRL Candelaria Banda [id number] Candelaria Banda 07/03/2018 1 *SELF PAY* Co catrachita Banda Notes Date Note Type Note Provider Name and Address Organization Details Recorded Time 06/30/2018 text/html CHIEF COMPLAINT: Thank you for referring Candelaria LBarry Banda to the [place] office for electrodiagnostic medicine consultation. She is a 57 year old female who comes in complaining of problems with her arms for several years. She said she first noticed that her hands would go numb at night and sometimes would go numb at work. She thinks she has been worse for the past couple of years. She said she gets sharp pains on her left thumb and left wrist when she uses her arm. She has gone to therapy for her thumb and had injections done which helped. She said that she feels like she has numbness of the long finger and some numbness of the ring finger of the left hand. She said she remembers having to jam her hand into a small space in order to get a part, and the numbness started after she did that. She said she has tried to do yoga, but when she puts her hands on the floor, it hurts too much to do it. She also has pain in her shoulders. She said her neck bothers her. She has been told she has a bulging disc but has never had any surgery. She has never had a fracture of either arm. She is not diabetic. She does not think her right arm is as severe as the left. Sometimes she has soreness of the right elbow and the right shoulder. 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 She said she does a lot of pushing and twisting with her hands. She has to snap some of the parts into the console which requires a lot of pressure on her thumbs. She has to lift the lids of the washers. They rotate to a new job every half hour. She said when she has to move the heavier lids her hands are worse. She said she gets a little bit of numbness in her feet sometimes after she crosses her legs or stands for a long time. She said she has been told she has a herniated lumbar disc. She gets numbness in her left thigh. She has some bladder incontinence when she coughs. She thinks that may be a little more frequent now. She has no bowel incontinence. She said when she washes dishes she has to stop because of hand pain. She has difficulty opening jars. She has problems gripping and squeezing objects due to pain. She recently had a Cortisone shot done in her left thumb, and she thought that definitely helped the pain. 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 She said she was off for 12 days of work, and she definitely felt better after she was off. She has only been back to work two days so far. PAIN SCALE: On the pain inventory, she kimbrough both hands, both shoulders, and the low back. She rates her pain at its worst in the last 24 hours as 7/10 and at its least as 1/10. She rates her average pain as 6/10. She feels that her pain severely interferes with enjoyment of life. It mildly interferes with normal work, relations with other people, mood, and general activity. It does not interfere with walking ability. When asked to describe the pain, she circles the words aching, stabbing, sharp, exhausting, tender, numb, shooting, pricking, and radiating. She is better with rest and Cortisone shots. She is worse when she is doing the dishes and doing housework, opening jars, doing yoga, and working. PAST MEDICAL HISTORY: Positive for headaches, heartburn, chronic back pain, basal cell skin cancer, depression, anxiety, and arthritis. Her surgeries includes hysterectomy, adenoidectomy, wisdom teeth removal in the , and partial vulvectomy in October 2017. Her current medications are Progesterone, Estriol Estradiol, Diclofenac sodium, Ibuprofen, Lidoderm patch, Centrum Silver Vitamin, and Vitamin D. She is allergic to Wellbutrin which caused itching and a rash, Darvocet which caused itching, and Flexeril which caused elevated blood pressure and heart rate. She said she is very sensitive to caffeine and some sugar. SOCIAL HISTORY: She is and employed as a production counter. She finished high school. She has no children. She drinks 21 beers a week. She smokes a half a pack of cigarettes per day. She started at age 18. She drinks no caffeine. She does not exercise. She is right handed. She has no pets. FAMILY HISTORY: Positive for heart attack in her father who at age 42. Positive for glaucoma, ulcerative colitis, basal skin cancer, and Graves' disease in her mother. Positive for hypertension and heart stents in her brother. Positive for gallbladder disease in her brother and two sisters. REVIEW OF SYSTEMS: On the review of systems checklist, she kimbrough as yes dizziness, difficulty swallowing, weight change, hair loss, irregular heartbeat, shortness of breath, cough, wheezing, constipation, nausea and vomiting, loss of bladder control, anxiety, depression, joint stiffness, muscle pain, chronic widespread pain, chronic fatigue, worse with cold weather, joint swelling, muscle weakness, difficulty sleeping, tingling sensations, headaches, and jaw pain. All other areas are marked as no . That form is available in the chart and includes a ten system review. Mely and[place], [place] - [facility] 07/05/2018 10:48:44 OBGyn Episode No OBEpisode recorded.
--- OUTSIDE RECORDS SUMMARY | 2025-01-02 10:00 | XMS_ITS | Patient Health Record ---
Author Organization [facility] [place] Address [address] [place] [address] Care Team Providers Care Staff Air Tactical Officer Name Role Phone Rito Clint GARCIA Primary Care Provider Sheron griffin Aguila Lara Unavailable [phone] Allergies Allergen (clinical drug ingredient) Drug/Non Drug Allergy documented on EMR Reaction Allergy Type Onset Date Status Darvocet A500 Unknown Drug Allergy Act jason Flexeril rash Drug Allergy Active Wellbutrin rash Drug Allergy Active caffeine Caffeine heart racing Drug Allergy Acti ve Results Component Value Reference Range Notes CREATININE Reviewed date:10/29/2024 09:53:31 AM Interpretation: Performing Lab: Notes/Report: [facility] , Creatinine 0.71 0.55-1.02 mg/dL Estimated GFR ( Cece >60 >=60 mL/min/1.73m 2 Estimated GFR (Non- Leeanne >60 >=60 mL/min/1.73m 2 Performing Lab: see note ML - [facility] LB CT Chest w/contrast * Reviewed date:10/29/2024 07:37:48 AM Interpretation: Performing Lab: Notes/Report: CT Chest w/o contrast Reviewed date:04/25/2024 06:57:17 AM Interpretation: Performing Lab: Notes/Report: CT CHEST W CON Reviewed date:10/29/2024 12:12:24 PM Interpretation: Performing Lab: Notes/Report: Source Facility: [facility] [place] [address] [place] [address] CT Scan Report Signed Patient: CANDELARIA FOSTER MR#: [id number] : 1960 Acct:[id number] Age/Sex: 64 / F ADM Date: 10/26/24 Loc: LAB Attending Dr: Aguila Lara D.O. Ordering Physician: Aguila Lara D.O. Date of Service: 10/26/24 Procedure(s): CT chest w con Accession Number(s): [id number] cc: Clint Veras D.O. [place] [id number] Patient Name: CANDELARIA FOSTER MRN: [id number] date: 1960 Sex: F Assigned Patient Location: LAB Current Patient Location: LAB Accession/Order Number: [id number] Exam Date: 10/26/2024 09:33 Report Date: 10/26/2024 09:36 At the request of: AGUILA LARA DO Procedure: CT chest w con CT CHEST WITH INTRAVENOUS CONTRAST: CLINICAL HISTORY: Hilar Lymphadenopathy COMPARISON: CT chest 04/25/2024 TECHNIQUE: Spiral images were obtained through the chest following intravenous administration of IV contrast. This CT exam was performed using one or more following dose reduction techniques: Automated exposure control, adjustment of the mA and/or kV according to patient size, or use of iterative reconstruction technique. FINDINGS: Mediastinum:Thoracic aorta appears normal in caliber. Pulmonary trunk appears nondilated. No pericardial effusion. No pathologically enlarged lymph nodes are seen involving the mediastinum or hilar regions. Prominent right hilar lymph node measuring 1 cm in short axis. The esophagus is grossly unremarkable. Lungs:No definite changes. Mild lung scarring. No consolidation pneumothorax or pleural effusion. Trachea and distal airways appear patent. No suspicious pulmonary nodule is seen on today's study. Abd:No acute findings. Soft tissues/Bones: No acute process. Osseous structures demonstrate degenerative change. CT/CT chest w con IMPRESSION: No acute process. No CT evidence of mediastinal or hilar lymphadenopathy. No suspicious pulmonary nodule. Emphysema. Impression dictated by: Maximo Charlton Jr., D.O. 10/26/2024 9:36 AM Dictation Location: [place] [address] Electronically authenticated by: [id number] Y Date: 10/26/2024 09:36 Dictated By: Maximo Charlton M.D. Signed By: 10/26/24938 DD/ 5 TD/TT: Telecasting Engineer: The [address] [address] [address] Scan Report Signed Patient: MARIBEL FOSTER MR#: [id number] : 1960 Acct:[id number] Age/Sex: 64 / F ADM Date: 10/26/24 Loc: LAB Attending Dr: Aguila Lara D.O. Ordering Physician: Aguila Lara D.O. Date of Service: 10/26/24 Procedure(s): CT srinivasa st w con Accession Number(s): [id number] cc: Clint Veras D.O. [place] [id number] Patient Name: CANDELARIA FOSTER MRN: [id number] date: 1960 Sex: F Assigned Patient Location: LAB Current Patient Loca tion: LAB Accession/Order Numb er: [id number] Exam Date: 10/26/2024 09:33 Report Date: 10/26/2024 09:36 At the request of: AGUILA LARA DO Procedure: CT chest w con CT CHEST WITH INTRAV ENOUS CONTRAST: CLINICAL HISTORY: Hi lar Lymphadenopathy COMPARISON: CT chest 04/25/2024 TECHNIQUE: Spiral im ages were obtained through the chest following intravenous administration of IV contrast. This CT exam was performed using one or more followin g dose reduction techniques: Automated exposure control, adjustment of the mA and/or kV according to patient size, or use of iterative reconstruction technique. FINDINGS: Mediastinum:Thoracic aorta appears normal in caliber. Pulmonary trunk appears nondilated. No pericardial effusion. No pathologically enlarged lymph nodes are seen involving t he mediastinum or hilar regions. Prominent right hilar lymph node measuring 1 cm in short axis. The esophagus is grossly unremarkable. Lungs:No definite changes. Mild lung scarring. No consolidation pneumothorax or pleural effusion. Trachea and distal airways appear patent. No suspicious pulmonary nodule is seen on today's study. Abd:No acute findings. Soft tissues/Bones: No acute process. Osseous structures demonstrate degenerative change. C T/CT chest w con IMPRESSION: No acute process. No CT evidence of mediastinal or hilar lymphadenopathy. No suspicious pulmon arthur nodule. Emphysema. Impression dictated by: Maximo Charlton Jr., D.O. 10/26/2024 9:36 AM Dictation Location: [place] [address] Electronically authenticated by: [id number] Y Date: 10/26/2024 09:36 Dictated By: Maximo Charlton M.D. Signed By: 10/26/2439 DD/ 5 TD/TT: Telecasting Engineer: CREATININE Reviewed date:05/21/2024 11:17:31 AM Interpretation: Performing Lab: Notes/Report: CT chest wo con Reviewed date:04/25/2024 06:54:46 AM Interpretation: Performing Lab: Notes/Report: Source Facility: [place] [address] CT Scan Report Signed Patient: CANDELARIA FOSTER MR#: [id number] : 1960 Acct:[id number] Age/Sex: 63 / F ADM Date: 04/24/24 Loc: CT Attending Dr: Aguila Lara D.O. Ordering Physician: Aguila Lara D.O. Date of Service: 04/24/24 Procedure(s): CT chest wo con Accession Number(s): [id number] cc: Clint Veras D.O. [place] [address] Patient Name: CANDELARIA FOSTER MRN: [id number] date: 1960 Sex: F Assigned Patient Location: CT Current Patient Location: Accession/Order Number: [id number] Exam Date: 04/24/2024 10:05 Report Date: 04/25/2024 06:12 At the request of: AGUILA LARA Procedure: CT chest wo con EXAMINATION: CT chest wo con HISTORY: Localized Enlarged Lymph Nodes COMPARISON: CT chest 02/13/2024 TECHNIQUE: Axial, Coronal, and Sagittal images were created without the administration of IV contrast material. Dose reduction techniques were achieved by using automated exposure control and/or adjustment of mA and/or kV according to patient size and/or use of iterative reconstruction technique. FINDINGS: LUNGS: Mild to moderate emphysematous changes. Stable appearance of a few sub-5 mm nodules scattered within the lungs. No new nodules, acute infiltrates, or suspicious findings. PLEURA: No mass, effusion, or pneumothorax. VASCULATURE: No abnormality. CHESTER: No mass or pathologic adenopathy. MEDIASTINUM: No mass or pathologic adenopathy. CARDIAC: No enlargement, pericardial thickening, or pericardial effusion. Coronary Artery calcifications: AORTA: No aneurysm or dissection. CHEST WALL: No mass or axillary adenopathy BONES: No bone lesion or fracture. LIMITED ABDOMEN: No suspicious findings. Limited images of the upper abdomen. OTHER: Negative. CT/CT chest wo con IMPRESSION: 1. Stable appearance of a few sub-5 mm nonspecific nodules scattered within the lungs; no suspicious findings. If patient is at increased risk for lung cancer consider follow-up CT chest in 1 year. 2. No lymphadenopathy. Electronically authenticated by: BE BARBER Date: 04/25/2024 06:12 Dictated By: Be Barber M.D. Signed By: 04/25/24614 DD/ 1 TD/TT: Telecasting Engineer: [place] [address] CT Scan Report Signed Patient: MARIBEL FOSTER MR#: [id number] : 1960 Acct:[id number] Age/Sex: 63 / F ADM Date: 04/24/24 Loc: CT Attending Dr: Aguila Lara D.O. Ordering Physician: Aguila Lara D.O. Date of Service: 04/24/24 Procedure(s): CT srinivasa st wo con Accession Number(s): [id number] cc: Clint Veras D.O. The [address] [address] Patient Name: CANDELARIA FOSTER MRN: [id number] date: 1960 Sex: F Assigned Patient Location: CT Current Patient Location: Accession/Order Numb er: [id number] Exam Date: 10:05 Report Date: 04/25/2024 06:12 At the request of: AGUILA LARA Procedure: CT chest wo con EXAMINATION: CT ches t wo con HISTORY: Localized Enlarged Lymph Nodes COMPARISON: CT chest 02/13/2024 TECHNIQUE: Axial, Coronal, and Sagittal images were created without the administration of IV contrast material. Dose reduction techniques were achieved by using automated exposure control and/or adjustment of mA and/or kV according to patient size and/ or use of iterative reconstruction technique. FINDINGS: LUNGS: Mild to moder ate emphysematous changes. Stable appearance of a few sub-5 mm nodules scattered within the lungs. No new nodules, acute infiltrates, or suspicious findings. PLEURA: No mass, effusion, or pneumothorax. VASCULATURE: No abnormality. CHESTER: No mass or pathologic adenopathy. MEDIASTINUM: No mass or pathologic adenopathy. CARDIAC: No enlargem ent, pericardial thickening, or pericardial effusion. Coronary Artery calcifications: AORTA: No aneurysm o r dissection. CHEST WALL: No mass or axillary adenopathy BONES: No bone lesio n or fracture. LIMITED ABDOMEN: No suspicious findings. Limited images of the upper abdomen. OTHER: Negative. C T/CT chest wo con IMPRESSION: 1. Stable appearance of a few sub-5 mm nonspecific nodules scattered within the lungs; no suspicious findings. If patient is at increased risk for lung cancer consider follow-up C T chest in 1 year. 2. No lymphadenopathy. Electronically authenticated by: BE BARBER Date: 04/25/2024 06:12 Dictated By: Be Barber M.D. Signed By: 04/25/24614 DD/ 1 TD/TT: Telecasting Engineer: Reason For Referral No Information Medications Medication [...] EVERY DAY Oral for 30 Days Active Immunizations Vaccine Route Administration Date Status Comme nts SARS-COV-2 (COVID 19 Valerio 0.5mL) Robert and Robert Unknown 09/03/2020 Administered Social History Tobacco Use: Social History Observation Description Date Details (start date - stop date) Current Smoker NA - NA Tobacco Control (Standard) Question Answer Notes Tobacco use: Current every day smoker Additional Findings: Tobacco user Moderate cigar ette smoker (10-19 cigs/day) Problems Problem Type SNOMED Code ICD Code Onset Dates Problem Status W/U Status Risk Notes Problem Centrilobular emphysema (36572534) Centrilobular emphysema (J43.2) Active confirmed Problem Obstructive sleep apnea syndrome (41556371) TARA (obstructive sleep apnea) (G47.33) Active confirmed Problem 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) Cigarette nicotine dependence with nicotine-induced disorder (F17.219) Active confirmed Problem Hilar lymphadenopathy (08591188) Hilar lymphadenopathy (R59.0) Active confirmed Problem History of pleural effusion (801056295) History of pleural effusion (Z87.09) Active confirmed Vital Signs Heart Rate 69 /min 10/30/2024 Temperature 97.1 degrees Fahrenheit 10/30/2024 Respiratory Rate 18 /min 10/30/2024 Blood pressure diastolic 81 mm Hg 10/30/2024 Oximetry 90 % 10/30/2024 Height 61.5 in 10/30/2024 Blood pressure systolic 158 mm Hg 10/30/2024 Weight 159.6 lbs 10/30/2024 BMI 29.66 kg/m2 10/30/2024 Procedures Procedure Date Ordered Date Performed Result Body Sit e Inhaler Teaching/Aerosol-performed 02/01/2024 02/01/2024 N /A Encounters Encounter Location Date Provider Diagnosis [facility] [address] [place] [address] 02/01/2024 Aguila Lara Centrilobular emphys rocio J43.2 ; Hilar lymphadenopathy R59.0 ; TARA (obstructive sleep apnea) G47.33 ; Cigarette nicotine dependence with nicotine-induced disorder F17.219 and History of pleural effusion Z87.09 [facility] [address] [place] [address] 05/01/2024 Aguila Lara Centrilobular emphys rocio J43.2 ; Hilar lymphadenopathy R59.0 ; Hemoptysis R04.2 ; TARA (obstructive sleep apnea) G47.33 and Cigarette nicotine dependence with nicotine-induced disorder F17.219 [facility] [address] [place] [address] 10/30/2024 Aguila Lara Centrilobular emphys rocio J43.2 ; Hilar lymphadenopathy R59.0 ; Hemoptysis R04.2 ; TARA (obstructive sleep apnea) G47.33 ; Cigarette nicotine dependence with nicotine-induced disorder F17.219 and Encounter for screening for malignant neoplasm of respiratory organs Z12.2 [facility] [address] [place] [address] 01/23/2024 [facility] [address] [place] [address] 05/30/2024 [facility] [address] [place] [address] 06/13/2024 Aguila [facility] Centrilobular emphys rocio J43.2 [facility] [address] [place] [address] 08/29/2024 [facility] [address] [place] [address] 10/23/2024 Aguila [facility] Hilar lymphadenopath y R59.0 Assessments Encounter Date Diagnosis (ICD Code) Assessment Notes Treatment Notes Treatment Clinical Notes Section Notes 02/01/2024 Centrilobular emphysema (ICD-10 - J43.2) Patient remains symptomatic, continues to state that she is feeling worse, yet does not want any workup or treatment. I bluntly asked her what does she want at this point. She returns to the office annually and nothing is accomplished to manage her COPD. She then stated that she was worse because her mother in June and she is anxious; I stated that that is not completely valid, as she has had the symptoms for years. I once again outlined options for her including repeating a pulmonary function test or starting a maintenance inhaler. After a lengthy discussion which felt like it was going in circles, I simply stated that I am going to give her a sample of an inhaler for her to try, or else I do not have anything else to offer. She states she is concerned with all the TV advertisements of medications and the potential side effects. I replied that everything has side effects, even oxygen and water yet we need those to live. She noted that she had significant tremors from nebulized albuterol in the past. I stated that nebulized medications can increase adrenergic side effects. With COPD, and her concerns, I would start with a LAMA, and I suggested Spiriva 2.5, 2 puffs daily. I counseled her on anticholinergic side effects, most commonly with Spiriva dry mouth and blurry vision. Inhaler demonstration was performed with the patient. Appropriate technique was demonstrated. Proper timing for administration was reviewed. Inhaler samples provided. I made her show me back how to use the inhaler, and I assembled the first sample for her. She was instructed to call the office in 3 weeks to let us know her response. If she feels better and is happy with her breathing, will send in prescription for Spiriva. If she is not responding as well as she would like, we will trial Stiolto (adds LABA to Spiriva). Holding off on repeating PFT at this time. Follow-up in 3 months. 02/01/2024 Hilar lymphadenopathy (ICD-10 - R59.0) Patient was to have a LDCT the end of December, but that was canceled because she had a chest CT on 01/17/2024. The only significant change from prior LDCT on 01/21/2023 was a mildly enlarged right suprahilar lymph node. As LDCT is without contrast, it is somewhat difficult to directly compare to 2 imaging studies. Explained to the patient I do not know what this is, but it may be reactive due to a mild bronchitis or viral illness related to her symptoms that led her to the ER visit. Will follow-up with a 3-month chest CT with contrast to monitor the hilar lymphadenopathy. 05/01/2024 Centrilobular emphysema (ICD-10 - J43.2) Patient has been very indecisive regarding treatment, workup, etc. in the past. Her last visit on 02/01/2024, she voiced agreement to try Spiriva. I demonstrated that the inhaler with her and primed it for her as well. I discussed adverse effects at that time. The patient stated she was scared to start the inhaler she did not have any side effects, even though I reviewed with her that LAMA do not have adrenergic side effects which she was concerned about. She remains symptomatic and asks what can be done. I replied that she needs to start the Spiriva. It would need to be reprimed at this time. She stated that she only wanted to take 1 puff in the morning. I stated that she needs to take 2 puffs once daily as that is the recommended dose, it is not generally standard practice to begin Spiriva with only 1 puff a day. I reviewed with her again the more common side effects include dry mouth and blurry vision. She was instructed to call the office in 2 to 3 weeks to let me know if it is helping or not. Once again, if she does not have a significant benefit, will consider changing Spiriva to Stiolto. 05/01/2024 Hilar lymphadenopathy (ICD-10 - R59.0) Patient was to have a LDCT the end of December, but that was canceled because she had a chest CT on 01/17/2024. The only significant change from prior LDCT on 01/21/2023 was a mildly enlarged right suprahilar lymph node. As LDCT is without contrast, it is somewhat difficult to directly compare to 2 imaging studies. Explained to the patient I do not know what this is, but it may be reactive due to a mild bronchitis or viral illness related to her symptoms that led her to the ER visit. Will follow-up with a 3-month chest CT with contrast to monitor the hilar lymphadenopathy. 10/30/2024 Centrilobular emphysema (ICD-10 - J43.2) History [...] is not specific for monitoring lymph nodes). 06/13/2024 Centrilobular emphysema (ICD-10 - J43.2) 10/23/2024 Hilar lymphadenopathy (ICD-10 - R59.0) 10/30/2024 Hemoptysis (ICD-10 - R04.2) Denies any hemoptysis since January 2024. She was counseled on smoking cessation yet again. 05/01/2024 Hemoptysis (ICD-10 - R04.2) Patient had ~1 week long episode of hemoptysis mid-January 2024 (which this office was never informed about) with bright red blood clots (patient had a photo of it). The hemoptysis spontaneously resolved without any intervention. Chest and neck CT did not show any gross/acute pathology to account for the hemoptysis. Etiology unclear - it may be a superficial blood vessel that ruptured during a coughing episode. Major concern is for a sesile endobronchial neoplasm. Explained to patient that she needs to contact me if this happens again - she would need a bronchoscopy for investigation. 02/01/2024 TARA (obstructive sleep apnea) (ICD-10 - G47.33) I have not been managing this. 02/01/2024 Cigarette nicotine dependence with nicotine-induced disorder (ICD-10 - F17.219) She continues smoke and have pulmonary symptoms. She was counseled yet again to stop smoking. 05/01/2024 TARA (obstructive sleep apnea) (ICD-10 - G47.33) I have not been managing this. 10/30/2024 TARA (obstructive sleep apnea) (ICD-10 - G47.33) History of TARA, was not being managed by me - was seeing Dr. Funk at [facility], but was lost to F/U, [...] or treatment. LDCT will be due 10/2025. 05/01/2024 Cigarette nicotine dependence with nicotine-induced disorder (ICD-10 - F17.219) Counseled patient once again on the benefits of smoking cessation. Discussed that her breathing would likely improve if she stopped, and possibly the underlying cause for hemoptysis would not have manifested if she were to have stop smoking in the past. She continues to remain at high risk for lung cancer and will need to have follow-up LDCT monitoring. As last chest CT was 04/24/2024, the next LDCT would be due the end of March 2025. I am not ordering it at this time as I am concerned the patient may have another hemoptysis event that would require a diagnostic chest CT prior to that time. 02/01/2024 History of pleural effusion (ICD-10 - Z87.09) No evidence of recurrent pleural effusion on chest CTA 01/17/2024. 10/30/2024 Encounter for screening for malignant neoplasm [...] cessation/continue d tobacco abstinence. LDCT due 10/2025. 02/01/2024 Other Plan Of Treatment Next Appt Details Provider Name:Aguila Lara, 11/05/2025 10:30:00 AM, [address] [place], [address], Insurance Providers Payer Name Payer Address Payer Phone Subscriber Number Group Number Insured Name Patient Relationship to Insured Coverage Start Date Coverage End Date [place] [address] [place] [address] [id number] Candelaria Foster Self - patient is the insured [employer] [address] [place]IC[place] [address] [id number] Candelaria Foster Self - patient is the insured Medical (General) History Medical History History ICD Code Centrilobular emphysema J43.2 TARA (obstructive sleep apnea) G47.33 Cigarette nicotine dependence with nicot ine-induced disorder F17.219 ELADIO (generalized anxiety disorder) F41.1 HTN (hypertension) I10 Hyperlipidemia E78.5 Iron deficiency anemia D50.9 Migraine G43.909 Adenomatous colon polyp D12.6 History of pleural effusion Z87.09 Hilar lymphadenopathy R59.0 Surgical History Surgery Date(Month/Year) hysterectomy, abdominal Cardiac Catheterization Thoracentesis 2021 Partial Vulvectomy
--- OUTSIDE RECORDS SUMMARY | 2025-01-02 10:00 | XMS_ITS | Clinical Summary ---
Author Organization [facility] Address [address] [place] [address] Care Team Providers Care Hair Dryer Name Role Phone Clint Veras Primary Care Provider [phone] Allergies Active Allergy Reactions Criticality Noted Date Comments Acetaminophen Itching 11/07/2023 Bupropion Hives,Itching,Rash High 06/27/2004 Other Reaction(s): antidepressants - rash Other Reaction(s): Unknown Caffeine Anxiety Low 03/05/2016 Other Reaction(s): Unknown Other Reaction(s): Intolerance, Other (See Comments) Way over stimulates the patient Other Reaction(s): Intolerance, Unknown Reaction Cyclobenzaprine Palpitations,Rash High 06/12/2017 Other Reaction(s): Other (See Comments), Other: See Comments Increase in blood pressure and pulse Other Reaction(s): Hypertension, Comment:Rash, Other: See Comments, Unknown Propoxyphene Itching High 06/10/2009 Other Reaction(s): unknown Other Reaction(s): Other (See Comments) Other Reaction(s): Itching Iqnqs-Yyjsufw-Ohwpsc Other 06/18/2019 Other Reaction(s): Unknown Reaction Medications lisinopril 5 MG tablet Take 5 mg by mouth Daily Active aspirin 81 MG chewable tablet Chew 81 mg in the morning. Active atorvastatin (Lipitor) 20 MG tablet Take 10 mg by mouth Daily 12/21/2022 Active Incruse Ellipta 62.5 MCG/ACT aerosol powder 62.5 mcg 1 (one) time each day 07/09/2024 Active Active Problems No known active problems Encounters Date Type Department Care Team Description 11/06/2024 11:35 AM EDT Office Visit [facility] [address] [place] [address] Kylah Lemus, LEAVE SPECIALIST-SPIRAL WINDING MACHINE HELPER Seborrheic keratosis (Primary Dx); Melanocytic nevus of trunk; Melanocytic nevus of scalp; Lentigines; Tello angioma; History of basal cell carcinoma 11/06/2024 Bamboo flowsheet [facility] [address] [place] [address] Kylah Lemus APRN-CNP 11/06/2024 Travel from Last 3 Months Family History Medical History Relation Name Comments Heart disease Brother Hypertension Brother Heart disease Father Stroke Maternal Grandmother Hypertension Mother Irritable bowel syndrome Mother Osteoporosis Mother Disuse Skin cancer Mother Heart disease Paternal Grandfather Clotting disorder Sister 1 Depression Sister 1 Major No Known Problems Sister 2 Melanoma Neg Hx Relation Name Status Comments Brother Father Maternal Grandfather Maternal Grandmother Mother Alive Paternal Grandfather Paternal Grandmother Sister 1 Sister 2 Social History Tobacco Use Types Packs/Day Years Used Date Smoking Tobacco: Unknown Tobacco Cessation:Counseling Given: Not Answered Comments:Current smoker frequency unknown Alcohol Use Standard Drinks/Week Comments Never 0 (1 standard drink = 0.6 oz pur e alcohol) caffeine: no Comments No Sex and Gender Information Value Date Recorded Sex Assigned at Not on file Legal Sex Female 6:59 PM EDT Gender Identity Not on file Sexual Orientation Not on file Last Filed Vital Signs Vital Sign Reading Time Taken Comments Blood Pressure 150/78 07/12/2024 9:46 AM EST Pulse - - Temperature - - Respiratory Rate - - Oxygen Saturation - - Inhaled Oxygen Concentration - - Weight 70.8 kg (156 lb) 07/12/2024 9:46 AM EST Height 162.6 cm (5' 4 ) 07/16/2022 12:00 PM EST Body Mass Index 26.78 07/16/2022 12:00 PM EST Plan of Treatment Upcoming Encounters Date Type Department Care Team (Late st Contact Info) Description 05/28/2025 11:00 AM EST Office Visit [facility] [address] [phone] Nimco Fajardo PA [address] [place], [place] [id number] 11/05/2025 11:25 AM EDT Office Visit [facility] [address] [place] [phone] Kylah Lemus, LEAVE SPECIALIST-SPIRAL WINDING MACHINE HELPER [address] [place] [address] Insurance [place]IC[place] [phone] Care Teams Hair Dryer Relationship Specialty Start Date End Date Clint Veras DO PCP - General Internal Medicine 05/16/23
--- OUTSIDE RECORDS SUMMARY | 2025-01-02 10:01 | XMS_ITS | Encounter Summary ---
Author Organization [facility] Address [address] [place] [address] Care Team Providers Care Tile Trimmer Name Role Phone Rito Clint Faye GARCIA Primary Care Provider [phone] Source Comments In the event this information is protected by the Federal Confidentiality of Alcohol and Drug AbusePatient Records regulations: The Federal rules restrict any use of the information to criminally investigate or prosecute any alcohol or drug abuse patient.[facility] Encounter Details Date Type Department Care Team (Late st Contact Info) Description 10/11/2024 [place] [address] Provider, [facility] Medicare Coverage of Physical Exams Social History Tobacco Use Types Packs/Day Years [...] N ot on file 06/05/2020 Data from: https://www.neighborhoodatlas.medicine.[facility].edu/. 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
[2025-01-02 11:44] LABS: Hematocrit 41.2 % (36.0-48.0); Hemoglobin 13.7 g/dL (12.0-16.0); Immature Granulocytes Abs Auto 0.01 10^3/uL (0.00-0.03); Immature Granulocytes Pct Auto 0.2 % (0.0-0.5); Lymphocytes Absolute Auto 1.3 10^3/uL (1.2-3.8); Mean Corpuscular HGB Conc 33.3 g/dL (29.9-35.2); Mean Corpuscular Hemoglobin 29.7 pg (26.7-34.0); Mean Corpuscular Volume 89.4 fL (81.0-99.0); Platelet Count 196 10^3/uL (150-450); Red Blood Count 4.61 10^6/uL (4.20-5.40); White Blood Count 4.6 10^3/uL (4.0-11.0)
[2025-01-02 12:19] LABS: Alanine Aminotransferase 18 U/L (14-59); Albumin Globulin Ratio 1.1; Albumin Level 3.8 g/dL (3.4-5.0); Alkaline Phosphatase 121 U/L (46-116); Amylase 55 U/L (25-115); Anion Gap 14.3; Aspartate Amino Transferase 21 U/L (15-37); Blood Urea Nitrogen 14.0 mg/dL (7.0-18.0); Calcium 9.1 mg/dL (8.5-10.1); Carbon Dioxide 27.9 mmol/L (21.0-32.0); Chloride 108 mmol/L (98-107); Estimated GFR (African America >60 (>=60 mL/min/1.73m^2); Estimated GFR (Non-African Ame >60 (>=60 mL/min/1.73m^2); Globulin 3.4 g/dL; Glucose 91 mg/dL (74-106); Lipase 21.0 U/L (16.0-77.0); Potassium 4.2 mmol/L (3.5-5.1); Sodium 146 mmol/L (136-145); Thyroid Stimulating Hormone 1.776 uIU/mL (0.358-3.740); Total Protein 7.2 g/dL (6.4-8.2)
== END 2025-01-02 09:57 | disposition home or self-care (01) ==
LOC: US 09:57
PROVIDERS: PCP Internal Medicine; Visit Provider Internal Medicine
DX: R10.11 Right upper quadrant pain (principal); E78.00 Pure hypercholesterolemia, unspecified; I10 Essential (primary) hypertension; R53.83 Other fatigue; M54.50 Low back pain, unspecified; M25.552 Pain in left hip; M51.369 Other intervertebral disc degeneration, lumbar region without mention of lumbar back pain or lower extremity pain
CPT/HCPCS: 36415; 72114; 73502; 76705; 80053; 82150; 83690; 84443; 85025

== ENCOUNTER 2025-05-28 18:59 | Outpatient (REF) | payer MEDICARE, OTHER, SELFPAY ==
--- OUTSIDE RECORDS SUMMARY | 2025-05-22 07:41 | XMS_ITS | Continuity of Care Document ---
Author Organization [facility] Address [address] [place] [address] Phone Care Team Providers Care Surveying Technician Name Role Phone Rito Clint GARCIA Primary Care Provider [phone] Clint Veras DO Attending Provider Care Teams Patient Care Team Team Status: Active Member Role/Relationship Status Dates Clint Veras DO Primary Care Provider Active Visit Care Team Team Status: Inactive Member Role/Relationship Status Dates Clint Veras DO Primary Care Provider Active Start: April 17, 2025 End: April 17Royce Chau ProviderActiveStart: April 17, 2025 End: April 17, 2025 Patient Care Team Team Status: Inactive Member Role/Relationship Status Dates Clint Veras DO Primary Care Provider Active Start: May 22, 2025 End: May 22Royce Chau ProviderActiveStart: May 22, 2025 End: May 22, 2025 Chief Complaint and Reason for Visit Chief Complaint Admit Date BP concern April 17, 2025 3 :44pm coughing + congestion May 22 11:26am Reason for Visit Admit Date Abdominal pain April 17, 2025 3 :44pm Chronic bronchitis April 17, 2025 3 :44pm ELADIO (generalized anxiety disorder) Octob er 2024 3:44pm Hypercholesterolemia April 17, 2025 3:44pm Hypertension April 17, 2025 3 :44pm Left hip pain April 17, 2025 3 :44pm Low back pain April 17, 2025 3 :44pm Nicotine addiction April 17, 2025 3 :44pm TARA (obstructive sleep apnea) April 172024 3:44pm Peripheral artery disease April 17, 2025 3:44pm Allergies, Adverse Reactions, Alerts Allergen Type Severity Reaction Last Updated Verified Status bupropion Allergy Unknown Rash May 22, 2025 11:33am Yes Active cyclobenzaprine Allergy Unknown Hypertension , Comment:Rash May 22, 2025 11:33am Yes Active acetaminophen Adverse Reaction Unknown Itching May 22, 2025 11:33am Yes Active caffeine Adverse Reaction Unknown Unknown Reaction May 22, 2025 11:33am Yes Active propoxyphene Adverse Reaction Unknown Itching May 22, 2025 11:33am Yes Active Darvocet A500 *ANALGESICS - OP Allergy Unknown Unknown Reaction December 16, 2023 10:20am No Active stimulants Adverse Reaction Unknown Unknown Reaction June 18, 2019 12:09pm No Active sugar Adverse Reaction Unknown Unknown Reaction June 18, 2019 12:08pm No Active Social History Smoking Status Status Start Date End Date Date of Observa tion Smokes tobacco daily (finding) December 20, 2024 12:02pm Observation Status Observation Response Date of Response Legal Sex Female (finding) [facility] 1960 Family [facility] Relationship Condition Age at Onset Recorded Date/T vinnie mother Graves' disease Unknown Ulcerative colitisUnknownGlaucomaUnknownHypertensionUnknownBasal cell carcinoma (BCC)UnknownfatherMyocardial infarctionUnknowngrandparentMyocardial infarction UnknownbrotherHypertensionUnknownHistory of coronary artery stent placement UnknownsisterDeep vein thrombosis (DVT)UnknownAnxietyUnknownfatherDeceased Unknown Problems Active Problems Problem Diagnosis/Recorded Date Onset Date Status C omments Nicotine addiction December 14, 2023 9:20pm Unknown Activ e PET/CT: 08/2020, CT: no suspicious nodules: 2021, 12/2022, 03/2024, 10/2024 TARA (obstructive sleep apnea) December 14, 2023 9:20pm Unknown Active ELADIO (generalized anxiety disorder)December 14, 2023 9:21pmUnknownActiveScreening mammogram for breast cancerJun2024 2:51pmUnknownActiveLow back painJune 2024 11:57amUnknownActiveFatigueJune 2024 1:00pmUnknownActive Incomplete bladder emptyingDecember 2023 8:51pmUnknownActive HypercholesterolemiaJune 2023 5:16pmUnknownActiveOsteopeniaDecember 2023 5:14pmUnknownActiveDEXA: 4Peripheral artery diseaseJune 2023 9:22pmUnknownActiveLeft hip painJune 2024 11:57amUnknownActiveAbdominal painJune 2024 12:54pmUnknownActiveChronic bronchitisJune 2023 9:21pm UnknownActiveHypertensionJune 2023 9:21pmUnknownActiveInactive/Resolved Problems Problem Diagnosis/Recorded Date Onset Date Status C omments Anemia June 19, 2019 8:14am Unknown Resolved Problem List clean-up per request of Phys. EHR Cmte Medications Medication Status Dose Units Route Directions Qty Days Refills S tart Date Stop Date End Date Reason(s) Instructions Adherence Lisinopril 5 mg tablet Discontinued 0 .ROUTE.YZTLBKY1539Hhaws 2023 12:29pmJune 2023 10:27amTAKE 1 TABLET BY MOUTH EVERY DAYAtorvastatin 10 mg ekdufgCiwllh45GUHIXduhrTntw 2023 3:25pmComplies with drug therapyLisinopril 5 mg tabletDiscontinued0.ROUTE .PLMNCJN0209Ysjkz 2024 5:50amOctober 2024 4:35pmTAKE 1 TABLET BY MOUTH EVERY DAYPantoprazole 40 mg tablet,delayed release (DR/EC)Nxlwmybonzih99EK GZYrjpc53601Skud 2024 11:00pmJuly 2024 11:21amPantoprazole 40 mg tablet,delayed release (DR/EC)Bzlgtjtgpycq73HWVDSappd86659Spcc 2024 11:21amOctober 2024 4:37pmLisinopril 5 mg wyzjhlZgjyyh47NXWIAaepk203051 April 09, 2025 4:34pmComplies with drug therapyPolysaccharide Iron Complex 150 mg iron nupjpbyFljnbopputmb2OPTTMMr DirectedChan [facility] 2018 12:00am June 23, 2022 7:20amevery other dayAspirin 81 mg Tablet,AveumsibGzhwnn59GN PODailyDecevalley hospital 2018 12:00amComplies with drug therapyLisinopril 5 mg ngozknZqwfnlzgxyos3NIWCHltdaJsnrubpd 2018 12:00amM[facility] 2023 12:29pm Oxymetazoline (Afrin (Oxymetazoline)) 0.05 % [place],Non-FfsjsipYstiirogugdp9PWHNY VQSTQVATEMJ35Z as needed for Allergy SymptomsChan Soon[facility] 2018 12:00amt[facility] 2018 1:05pmFluticasone Propionate (Flonase Allergy Relief) 50 mcg/actuation [place],JsjogsasylXcxbuiqhdqwo9FRKBEIVJOCCMXCAZyqzm as needed for allergiesChan Soon[facility] 2018 12:00amChan [facility] 2021 7:20amAtorvastatin 20 mg gstetcYmlslxhvyhzm62UPOGPsstdRmunwccm 2021 12:00amJune 2023 10:27am Cefdinir 300 mg trbbevgOafzsx017TYFDBfiyc lhije2480Pvzcihla 2024 12:00am Complies with drug therapyMetoprolol Succinate 25 mg tablet extended release 24 ibFeyfop92JIPBWetjm17248Zfkmfhtw 2024 12:00amComplies with drug therapy Atorvastatin 10 mg silquqPiimblgavexp10IAHBIyrddZart 2023 11:00pmJuly 2023 3:25pmLisinopril 5 mg rxbkhwWdaahwbgdiph4IPYKJpytiQsad 2023 10:27amMarch 2024 5:50am Immunizations Immunization Event Date Not Given Reason Dose Number Tongue Stitcher Lot Number Reason(s) Given Vaccine Information Statement (VIS) Detail Administration Location COVID-19 Ad26.COV2.S (Smailex) September 03, 2020 Vital Signs Vital Reading Result Reference Range Collection Date/Time Height 62 [in_i] April 17, 2025 2:95nsMejizw54.93 kgOctober 2024 2:55pmHeart Rate84 /old57-701Hznjtak 2024 2:55pmRespiratory rate12 /woq30-71Mmsoqgw 2024 2:55pmBP Rofianzb175 mm[Hg]100-140October 2024 2:55pmBP Otcnoklfn23 mm[Hg]60-100October 2024 2:55pmBMI (Body Mass Index)28.5 kg/u6Idpdphx 2024 2:68cnNzvzsq74 [in_i]May 22, 2025 11:94gbIgqqmu47.42 kg May 22, 2025 11:36amHeart Rate84 /lsh67-213Deivsxmo 2024 11:36am Respiratory rate12 /qtd36-64Ipdvyjsc 2024 11:36amBP Sbtrofnr031 mm[Hg] 100-140November 2024 11:36amBP Nreqrejra85 mm[Hg]60-100November 2024 11:36amBMI (Body Mass Index)28.3 kg/m5Vnhvntkk 2024 11:36am Advance Directives Advance Directive Response Recorded Date/ Time Advance Directives No May 4:10pm Insurance Providers Guarantor Candelaria Banda Address [address] [id number] Info.Home Phone: Coverage Status Update:2024 Payer Group Member ID Coverage Type Subscriber Relationship to Subscriber Effective Date Expiration Date [facility] LEVY [id number] L Jacobs Id: [id number] [address] [facility] [address] Home Phone: Email: [email or web address] Centeredic[email or web address] [id number] L Jacobs Id: [id number] [address] [facility] [address] Home Phone: Email: [email or web address] Id: [id number] Id: [id number] L Jacobs Id: [id number] [address] [facility] [address] Home Phone: Email: [email or web address] L Jacobs Id: [id number] [place] [address] Home Phone: Email: [email or web address] Encounters Encounter Location(s) Arrival/Admit Date Discharge/Departure Date Discharge/Departure Disposition Provider(s) Departed Physician/ Provider Office Visit -[facility] April 17, 2025 3:44pm April 17, 2025 11:59pm Discharged to home care or self care (routine discharge) Clint Veras DO Departed Physician/ Provider Office Visit -[facility] May 22, 2025 11:26am May 22, 2025 12:40pm Discharged to home care or self care (routine discharge) Clint Veras DO Recent Diagnosis Onset Date Admit Date Abdominal pain Unknown April 17 3:44pm Chronic bronchitis Unknown April 17, 2025 3:44pm ELADIO (generalized anxiety disorder) Unknown April 17, 2025 3:44pm Hypercholesterolemia Unknown March 3:44pm Hypertension Unknown April 17 3:44pm Left hip pain Unknown April 17 3:44pm Low back pain Unknown April 17 3:44pm Nicotine addiction Unknown April 17, 2025 3:44pm TARA (obstructive sleep apnea) Unknown Oc tober 2024 3:44pm Peripheral artery disease Unknown Octobe r 2024 3:44pm Assessments Diagnosis Onset Date Resolution Status Admit Date Abdominal pain acuteOctober 2024 3:44pmChronic bronchitisacuteOctober 2024 3:44pm ELADIO (generalized anxiety disorder)acuteOctober 2024 3:44pm HypercholesterolemiaacuteOctober 2024 3:44pmHypertensionacuteOctober 2024 3:44pmLeft hip painacuteOctober 2024 3:44pmLow back painacuteOctober 2024 3:44pmNicotine addictionacuteOctober 2024 3:44pmOSA (obstructive sleep apnea)acuteOctober 2024 3:44pmPeripheral artery disease acuteOctober 2024 3:44pm Plan of Treatment Author Clint Veras Park[facility] HealthAuthoredOctober 2024 9:48pmThis patient has been encouraged to quit tobacco use immediately. They are aware of the hazards associated with tobacco use, including but not limited to respiratory infections, vascular disease and cancers. Scheduled for yearly LDCT chest for lung cancer screening is recommended. PET/CT: 08/2020, CT: no suspicious nodules: 2021, 12/2022, 03/2024, 10/2024 Occurs w/ eating results in bloating, pain, nausea and emesis. She admits to difficulty swallowing on occasion, requiring a drink of water. She occasionally will experience nausea w/ emesis in order to improve the pain. RUQ US: normal liver and GB - 12/2024 I instructed her to begin Pepcid and take bid x 1 mo. - she is hesitant to take any medications - no improvement, would refer for EGD I have instructed this patient to consume a healthy, low-fat, low-salt diet. I have also encouraged them to continue exercise with weight loss to achieve/maintain a BMI < 30. I have instructed this patient on the correct procedure for obtaining home BP measurements:? - rest for 5 minutes w/o talking. - positioned w/ feet on floor and arms supported. - average best 2/3 readings w/ goal < 135/85. - update office w/ home readings in 2 weeks. BP readings labile and likely reflects increased anxiety Continue to monitor Continue Lisinopril without interruption This patient is aware of the benefits associated with TARA: With continued use, the patient reduces the risk for [place], CVA, HTN, cardiac dysrhythmias and sudden cardiac deaths. The patient is also aware of the association between TARA and morning headaches, daytime somnolence, fatigue and obesity, which also has been improved with continued use. The patient is compliant with treatment, wearing the equipment every night for greater than 4 hours. The patient is instructed to continue use of the CPAP for TARA treatment. I have instructed this patient on a low fat, high fiber diet and exercise. I have discussed the primary and secondary prevention benefits attributed to lowering LDL cholesterol. I have also discussed the medical treatment of elevated cholesterol, which is based on the 10 year ASCVD risk. Continue Atorvastatin without interruption This patient has been encouraged to quit tobacco use immediately. They are aware of the hazards associated with tobacco use, including but not limited to respiratory infections, vascular disease and cancers. Scheduled for yearly LDCT chest for lung cancer screening is recommended. Mucolytics as needed to assist in clearing secretions. Instructed on a healthy diet and exercise routine. Instructed to walk daily. Inspect feet daily for cuts and calluses. Instructed on smoking cessation. Instructed to continue secondary prevention measures. She has difficulty lying on her left side Pain w/ ambulating and standing Examination normal w/o restricted ROM of the left hip Pain w/ standing or ambulating, required to sit to relieve the pain. Pain radiates down her LLE to her knee Denies N/T or weakness No bowel or bladder complaints Future Tests Future scheduled test information is unavailable Pending Tests Pending diagnostic test information is unavailable Future Visits Future appointment information is unavailable Future Procedures Future procedure information is unavailable Future Medications Future medication information is unavailable Patient Instructions Instruction Admit Date Low back pain in adults April 17 3:44pm
--- OUTSIDE RECORDS SUMMARY | 2025-05-28 11:00 | XMS_ITS | Encounter Summary ---
Author Organization [facility] Address [address] [place] [address] Care Team Providers Care Conservation Coordinator Name Role Phone Clint Veras Primary Care Provider [phone] Reason for Visit * ReasonCommentsGynecologic Exam Encounter Details DateTypeDepartmentCare Team (Latest Contact Info)Kijinjhhemo59/02/2025 11:00 AM ESTOffice Visit [facility] [address] [place] [address] Nimco Fajardo PA [address] [place], [facility]11 Well woman exam with routine gynecological exam; Encounter for screening mammogram for malignant neoplasm of breast; Leakage of urine from urinary bladder Social History Tobacco UseTypesPacks/DayYears UsedDateSmoking Tobacco: Unknown Comments:Current smoker freq uency unknown Alcohol UseStandard Drinks/WeekCommentsNever0 (1 standard drink = 0.6 oz pure alcohol)caffeine: noCommentsNoSex and Gender InformationValueDate RecordedSex Assigned at BirthNot on fileLegal QodXasrjx30/15/2023 6:59 PM EDT Gender IdentityNot on fileSexual OrientationNot on filedocumented as of this encounter Last Filed Vital Signs Vital SignReadingTime TakenCommentsBlood Rqpkcuyi399/7812 11:15 AM EST Pulse--Temperature--Respiratory Rate--Oxygen Saturation--Inhaled Oxygen Concentration--Ssaxxl41.9 kg (154 lb)05/28/2025 11:15 AM ESTHeight--Body Mass Index26.43007/16/2022 12:00 PM ESTdocumented in this encounter Progress Notes * AZUL Zapata - 05/28/2025 11:00 AM EST Reason for Appointment: Patient ID: Candelaria Banda is a 64 y.o. female who presents for Gynecologic Exam Patient presents today for Annual Exam. MEDICATIONS Current Outpatient Medications Medication Instructions aspirin 81 mg, Daily RT atorvastatin (LIPITOR) 10 mg, Daily Incruse Ellipta 62.5 mcg, Daily lisinopril 5 mg, Daily ALLERGIES Allergies Allergen Reactions Bupropion Hives, Itching and Rash Other Reaction(s): antidepressants - rash Other Reaction(s): Unknown Cyclobenzaprine Palpitations and Rash Other Reaction(s): Other (See Comments), Other: See Comments Increase in blood pressure and pulse Other Reaction(s): Hypertension, Comment:Rash, Other: See Comments, Unknown Propoxyphene Itching Other Reaction(s): unknown Other Reaction(s): Other (See Comments) Other Reaction(s): Itching Acetaminophen Itching Nrezn-Eydyqjm-Zoogxn Other Other Reaction(s): Unknown Reaction Caffeine Anxiety [...] with bilateral sciatica Arrhythmia Arthritis Atherosclerosis of agdaag[place] artery of both lower extremities with intermittent claudication Basal cell carcinoma Benign hypertension 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 Cervical spondylosis Chronic bronchitis, mucopurulent (HCC) Congenital spondylolisthesis COVID-19 with multiple comorbidities Depression Episodic tension-type headache, not intractable Fibromyalgia ELADIO (generalized anxiety disorder) History of carcinoma in situ of vulva History of medical problems History of medical treatment Hyperlipidemia Impaired fasting glucose Iron deficiency anemia, unspecified Lumbar spondylosis Lumbosacral spondylosis with radiculopathy Medial epicondylitis, right Meralgia paresthetica, left Migraine Nicotine dependence, cigarettes, uncomplicated Ocular migraine TARA (obstructive sleep apnea) Paresthesias Pelvic floor tension Peripheral artery disease Polyp of colon Post-menopausal Pulmonary nodule Shoulder strain, right, initial encounter Tenosynovitis, de Quervain Vulvar high-grade squamous intraepithelial lesion (HGSIL) HISTORY PAST MEDICAL HISTORY SOCIAL HISTORY Past Medical History: Diagnosis Date Actinic keratosis Acute bilateral low back pain with bilateral sciatica Arrhythmia Arthritis Atherosclerosis of agdaagux artery of both lower extremities with intermittent claudication Basal cell carcinoma Benign hypertension 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 Central sensitization Cervical spondylosis Chronic bronchitis, mucopurulent (HCC) Congenital spondylolisthesis COVID-19 with multiple comorbidities Depression Episodic tension-type headache, not intractable Fibromyalgia ELADIO (generalized anxiety disorder) History of carcinoma in situ of vulva History of medical problems Herniated discs History of medical treatment Silas 3 surgery in October Hyperlipidemia Impaired fasting glucose Iron deficiency anemia, unspecified Lumbar spondylosis Lumbosacral spondylosis with radiculopathy Medial epicondylitis, right Meralgia paresthetica, left Migraine Nicotine dependence, cigarettes, uncomplicated Ocular migraine TARA (obstructive sleep apnea) Paresthesias Pelvic floor tension Peripheral artery disease Polyp of colon villous adenoma Post-menopausal Pulmonary [...] 2021 EGD 05/2019 OTHER SURGICAL HISTORY 02/2016 [facility] OTHER SURGICAL HISTORY 11/2017 Bx Periclitor, peroneal lesion SKIN BIOPSY SKIN CANCER EXCISION TOTAL ABDOMINAL HYSTERECTOMY W/ BILATERAL SALPINGOOPHORECTOMY 2009 VULVECTOMY 11/03/2017 Partial REVIEW OF SYSTEMS Review of Systems: Review of Systems Constitutional: Negative. HENT: Negative. Eyes: Negative. Respiratory: Negative. Cardiovascular: Negative. Gastrointestinal: Negative. Genitourinary: Negative. Musculoskeletal: Negative. Skin: Negative. Neurological: Negative. All other systems reviewed and are negative. Hematological: Negative. Endocrine: Negative. Allergic/Immunologic: Negative. OBJECTIVE Objective: Physical Exam Constitutional: Appearance: Normal appearance. Genitourinary: Right Adnexa: not tender and no mass present. Left Adnexa: not tender and no mass present. Cervix is absent. No cervical discharge. Uterus is absent. Breasts: Breasts are soft. Right: Normal. Left: Normal. HENT: Head: Normocephalic. Nose: Nose normal. Mouth/Throat: Mouth: Mucous membranes are moist. Cardiovascular: Rate and Rhythm: Normal rate. Pulmonary: Effort: Pulmonary effort is normal. Abdominal: General: Bowel sounds are normal. Palpations: Abdomen is soft. Musculoskeletal: General: Normal range of motion. Cervical back: Normal range of motion. Neurological: General: No focal deficit present. Mental Status: She is alert. Skin: General: Skin is warm and dry. Psychiatric: Mood and Affect: Mood normal. Vitals and nursing note reviewed. Exam conducted with a oleomargarine maker present. Vitals: Estimated body mass index is 26.78 kg/m?? as calculated from the following: Height as of 07/16/22: 5' 4 . Weight as of 07/12/24: 156 lb. BP: No LMP recorded (lmp unknown). Patient has had a hysterectomy. ASSESSMENT & PLAN ICD-10-CM 1. Well woman exam with routine gynecological exam Z01.419 THIN PREP TIS PAP AND HR HPV DNA 2. Encounter for screening mammogram for malignant neoplasm of breast Z12.31 Bilateral screening mammogram Bilateral screening mammogram Assessment/Plan Annual Exam: Patient presents today for an annual exam. Patient states she is doing well and has no complaints. Pap was obtained without difficulty. Patient does have a lot of leakage and when coughing she does have this does not feel empty bladder fully, does carry pads with her. Discussed a Urology consult with patient. Patient to follow with PCP/Cardiology for some discomfort in chest area when urinating as this only happens with urinating. Patient did have Pelvic Floor therapy. Discussed Estradiol creamto use for assistance in helping this. Patient will think about the Estradiol Cream and will discuss with Urology. Orders Placed This Encounter Procedures Bilateral screening mammogram Follow Up: Patient is to return in one year for annual unless needed otherwise. Documented by Lena Ozuna LPN on behalf of: AZUL Zapata documented in this encounter Plan of Treatment DateTypeDepartmentCare Team (Latest Contact Info)Hwbxbciecxh35/12/2026 11:20 AM EDTOffice Visit [facility] [address] [place] [id number] Kylah Lemus, CARPET INSPECTOR [employer] [address] [place] [address] 06/03/2026 11:00 AM ESTProcedure Visit [facility] [address] [place] [address] iNmco Fajardo PA [address] [place] [address] NameTypePriorityAssociated DiagnosesOrder ScheduleBilateral screening mammogram ImagingRoutine Encounter for screening mammogram for malignant neoplasm of breast Expected: 05/28/2025, Expires: 07/29/2026THIN PREP TIS PAP AND HR HPV DNA Pathology and CytologyRoutine Well woman exam with routine gynecological exam Ordered: 05/28/2025documented as of this encounter Visit Diagnoses Diagnosis Well woman exam with routine gynecological exam Routine gynecological examination Encounter for screening mammogram for malignant neoplasm of breast Leakage of urine from urinary bladder documented in this encounter Care Teams Team MemberRelationshipSpecialtyStart DateEnd Date Clint Veras DO [address] [facility] [place] [address] PCP - GeneralInternal Bfgxieyp88/20/23documented as of this encounter
--- OUTSIDE RECORDS SUMMARY | 2025-05-28 19:02 | XMS_ITS | CCD ---
Author Organization [facility] CliniSydc Care Team Providers Care Supervisor [employer] Name Role Phone TAMIA TORRES Unavailable Unavailable TAMIA TORRES Unavailable Unavailable Leon Kohli Admitting Unavailable Leon Kohli Attending Unavailable Marissa, Clint Primary Care Unavailable Leon Kohli Unavailable David Lemus Unavailable Clint Ann Unavailable MARISSA, DR BONE Consulting Unavailable MARISSA, [...] Care Unavailable MARISSA, DR BONE Attending Unavailable BALL, DR BONE [...] Marissa ONEIL, Clint Mckinney Primary Care Provider Clint Ann DO Primary Care Provider MIKAL LEMUS Attending Unavailable CHAY ALEJANDRE Attending Unavailable MIKAL LEMUS Referring Unavailable CHAY ALEJANDRE Attending Unavailable CHAY ALEJANDRE Attending Unavailable NIMCO FAJARDO Attending Unavailable CHAY ALEJANDRE Attending Unavailable ADRIAN FLORENCE Attending Unavailable Clint Ann DO Primary Care Provider [phone] [facility] , [place] Attending Provider Clint Ann DO Attending Provider [phone] Clint Ann DO Primary Care Provider [phone] Clint Ann DO Attending Provider [phone] Allergies Allergy ClassificationReported Allergen(s)Allergy TypeDate of OnsetReaction(s) Facility (1 source)buPROPion; Translations: [BUPROPION HCL]Drug Yjqjnoq44-73-1473PFM [facility] Repository (20 sources)caffeine; Translations: [CAFFEINE]Drug Yozxuuv10-76-6722Vymtmjl [facility] Repository (1 source)cyclobenzaprine; Translations: [CYCLOBENZAPRINE HCL]Drug Allergy 79-86-7194QAVVnxieftybMer[facility] (1 source)PROPOXYPHENE N-ACETAMINOPHEN; Translations: [PROPOXYPHENE N-ACETAMINOPHEN]Propensity to adverse reactions to drug (disorder)00-99-0636NRYC[facility] (8 sources)cyclobenzaprine; Translations: [Flexeril][facility]rug AllergyUnknownTMorrow [facility] (2 sources)buPROPionDrug Qdowyie02-48-5294HWKYNDEPGQGja [facility] Repository (1 source)Darvocet-N 100Drug allergy (disorder)08-80-6884HcePrem[facility] (20 sources)buPROPionDrug Tjxxitk18-07-0648Hudaian, Hives, RashAcmc Healthcare System (20 sources)cyclobenzaprineDrug Mnwgdcn37-91-8741Dkfl, PalpitationsAcmc Healthcare System (1 source)PropoxypheneDrug Hunbwlz41-04-6771WHTCWRKLPsbpy [employer] Other (1 source)Allergies ReconciledPropensity to adverse reactionsTenet St. [facility] [employer] Other (1 source)patient allergy list reviewed by nurse or physiciaPropensity to adverse ibplnmxet42-28-7277Xlvigve:[facility] HospitalSafeMeds Solutions [employer] Other (1 source)Flexeril *MUSCULOSKELETAL THERAPY AGENTS*Propensity to adverse reactionsComment:[facility] CenterCerenis [facility] [employer] Other (1 source)Darvocet A500 *ANALGESICS - OPIOID*Propensity to adverse reactions [facility] [employer] Other (20 sources)AcetaminophenDrug Ddaiang24-62-8289LzcpjxkOofentwhxPremier Health [facility] (20 sources)PropoxypheneDrug Xojoeye19-36-2637XhploxjLxjucwthrPremier Health [facility] Center (3 sources)Darvocet A500 *ANALGESICS - OPAllergy to liwxbxomk51-18-3678UnvtiihSelect [facility] (3 sources)stimulantsPropensity to adverse -97-5914Nulfuxb Reaction [facility] (3 sources)sugarPropensity to adverse -59-8106Nocifsm Reaction [facility] (18 sources)Tzekp-Lexyitc-RsthdtRigv Rxwtijxmfaw84-90-0558UefipZEXG Healthcare Medications Current Medications MedicationDrug Class(es)DatesSig (Normalized)Sig (Original)aspirin 81 mg chewable tablet (20 sources)Platelet Aggregation Inhibitor, Nonsteroidal Anti-inflammatory Drug Start: 55-53-6210lwdm 1 tablet by mouth once dailyAspirin 81 mg Tablet,Chewable Active 81 MG PO Daily June 18, 2019 1:00am Complies with drug therapytake 1 tablet by mouth every twenty-four hoursAspirin 81 81 MG 1 tablet Orally Once a day ActiveAspirin 81 Activeatorvastatin 10 mg oral tablet (20 sources)HMG-CoA Reductase InhibitorStart: 66-77-3848dhcu 2 tablets by mouth once dailyAtorvastatin 10 mg tablet Active 20 MG PO Daily January 09, 2024 4:25pm Complies with drug therapyStart: 12-16-2023 End: 66-87-9154jlak 1 tablet by mouth once dailyAtorvastatin 10 mg tablet Discontinued 10 MG PO Daily December 16, 2023 12:00am January 09, 2024 4:25pmStart: 28-01-8628rczs 10 mg by mouth once dailyatorvastatin (Lipitor) 20 MG tablet Take 10 mg by mouth Daily 12/21/2022 ActiveStart: 06-23-2022 End: 46-89-1833ivnq 1 tablet by mouth once dailyAtorvastatin 20 mg tablet Discontinued 20 MG PO Daily June 23, 2022 1:00am December 16, 2023 11:27am take 1 tablet by mouth every twenty-four hoursAtorvastatin Calcium 10 MG 1 tablet Orally Once a day ActiveAtorvastatin Calcium ActiveCalcium Carbonate-Vit D-Min (Calcium 1200) 9322-3177 MG-UNIT chewable tablet (3 sources)Start: 05-16-2023 End: 01-34-2307Kbyeeye Carbonate-Vit D-Min (Calcium 1200) 1647-3425 MG-UNIT chewable tablet Indications: Osteopenia, unspecified location Chew 1,200 mg in the morning. 30 tablet 05/16/2023 05/15/2024 Activelisinopril 5 mg oral tablet (20 sources)Angiotensin Converting Enzyme InhibitorStart: 69-77-3464iiww 2 tablets by mouth once dailyLisinopril 5 mg tablet Active 10 MG PO Daily 60 30 April 09, 2025 5:34pm Complies with drug therapyStart: 09-17-2024 End: 67-41-1885bnhr 1 tablet by mouth once dailyLisinopril 5 mg tablet Discontinued 0 .ROUTE .COMPLEX 30 September 17, 2024 6:50am April 09, 2025 5:35pm TAKE 1 TABLET BY MOUTH EVERY DAYStart: 12-16-2023 End: 51-21-3235cvfn 1 tablet by mouth once dailyLisinopril 5 mg tablet Discontinued 5 MG PO Daily December 16, 2023 11:27am September 17, 2024 6:50amStart: 09-19-2023 End: 57-42-9897iids 1 tablet by mouth once dailyLisinopril 5 mg tablet Discontinued 0 .ROUTE .COMPLEX 30 11 September 19, 2023 1:29pm December 16, 2023 11:27am TAKE 1 TABLET BY MOUTH EVERY DAYStart: 06-18-2019 End: 48-13-3264ebdv 1 tablet by mouth once dailyLisinopril 5 mg tablet Discontinued 5 MG PO Daily June 18, 2019 1:00am September 19, 2023 1:29pm Lisinopril Not-TakingLisinopril Active7 actuat umeclidinium 0.0625 mg/actuat dry powder inhaler (5 sources)AnticholinergicStart: 48-08-7730Hikqapm Ellipta 62.5 MCG/ACT aerosol powder 62.5 mcg 1 (one) time each day 07/09/2024 Active Completed/Discontinued Medications MedicationDrug Class(es)DatesSig (Normalized)Sig (Original)fluticasone propionate 0.05 mg/actuat metered dose nasal spray (3 sources)CorticosteroidStart: 06-18-2019 End: 16-43-5645Uvlapkfbqeb Propionate (Flonase Allergy Relief) 50 mcg/actuation [place],Suspension Discontinued 2 SPRAY INTRANASAL Daily as needed for allergies June 18, 2019 1:00am June 23, 2022 8:20amoxymetazoline hydrochloride 0.5 mg/ml nasal spray (3 sources)Start: 06-18-2019 End: 90-71-5758Cqlrnksxkxdeb (Afrin (Oxymetazoline)) 0.05 % [place],Non-Aerosol Discontinued 2 SPRAY INTRANASAL Q12Has needed for Allergy Symptoms June 18, 2019 1:00am June 18, 2019 2:05pmpantoprazole 40 mg delayed release oral tablet (2 sources)Proton Pump InhibitorStart: 01-02-2025 End: 70-24-2617geqj 1 tablet by mouth once dailyPantoprazole 40 mg tablet,delayed release (DR/EC) Discontinued 40 MG PO Daily 30 30 1 January 04, 2025 12:21pm April 09, 2025 5:37pmpolysaccharide iron complex 150 mg oral capsule (3 sources)Start: 06-18-2019 End: 05-89-3291ireu 1 tablet by mouth every other dayPolysaccharide Iron Complex 150 mg iron capsule Discontinued 1 TAB PO As Directed June 18, 2019 1:00am June 23, 2022 8:20am every other day Problems Active Problems Problem ClassificationProblemDateDocumented DateEpisodic/ChronicAbdominal pain (4 sources)Left lower quadrant pain; Translations: [Left lower quadrant pain] Onset: 01-21-2014 Resolved: 899425-82-3874AktzqxwoLqbxl bronchitis (1 source)Acute bronchitis; Translations: [Acute bronchitis due to other specified organisms]EpisodicAdministrative/social admission (1 source)Informing health home day care provider of test result; Translations: [Person consulting for explanationof examination or test findings]Episodic Anxiety disorders (7 sources)Generalized anxiety disorder; Translations: [Generalized anxiety disorder]43-36-5216DvetkyzVmynnq of other female genital organs (2 sources)Carcinoma in situ of vulva; Translations: [Carcinoma in situ of vulva]Onset: 43-13-2690BocgizoFednpf; other and unspecified primary (1 source)Personal history of in-situ neoplasm of other site; Translations: [In situ neoplasm]EpisodicChronic obstructive pulmonary disease and bronchiectasis (17 sources)Mucopurulent chronic bronchitis; Translations: [Mucopurulent chronic bronchitis]Onset: 81-93-5992PrupkcpQisljhgtby and other anemia (1 source)Iron deficiency anemia; Translations: [Iron deficiency anemia, unspecified]EpisodicDeficiency and other anemia (3 sources)Anemia; Translations: [Anemia, unspecified]99-90-1929JqblxyyqGzshczc on above:Problem List clean-up per request of Phys. EHR CmteDiabetes mellitus without complication (2 sources)Impaired fasting glucose; Translations: [Impaired fasting glycemia] EpisodicDisorders of lipid metabolism (11 sources)Pure hypercholesterolemia; Translations: [Pure hypercholesterolemia, unspecified]Onset: 95-52-1953RznyewoAtkqrqbck hypertension (11 sources)Essential hypertension; Translations: [Essential (primary) hypertension]ChronicGenitourinary symptoms and ill-defined conditions (4 sources)Dysuria; Translations: [Dysuria] Resolved: 585187-48-1901QcapmirwAdrjqqud; including migraine (2 sources)Episodic tension-type headache; Translations: [Episodic tension-type headache, not intractable]ChronicInflammatory diseases of female pelvic organs (1 source)Abscess of vulva; Translations: [Abscess of vulva]EpisodicMalaise and fatigue (3 sources)Malaise and fatigue; Translations: [Other malaise and fatigue]Onset: 03-07-2016 Resolved: 642571-25-7699HgsvlytwAsbmksrgot disorders (2 sources)Menopausal symptom; Translations: [Symptomatic menopausal or female climacteric states]Onset: 78-39-2487RtiidloEoiv disorders (1 source)Dysthymia; Translations: [Dysthymic disorder]Onset: 78-79-2669Hdhibgv Neoplasms of unspecified nature or uncertain behavior (2 sources)Neoplasm of uncertain behavior of colon; Translations: [Neoplasm of uncertain behavior of colon]Onset: 07-36-3016ZkbpvdbzFexzbfgkmdtw (2 sources)Postmenopausal osteoporosis; Translations: [Age-related osteoporosis without current pathological fracture]37-68-9573MlrnaogOqaru and unspecified benign neoplasm (1 source)Benign neoplasm of descending colonEpisodicOther and unspecified benign neoplasm (2 sources)Melanocytic nevus of trunk; Translations: [Melanocytic nevi of trunk] 45-68-1069GsobvqqtBqojn and unspecified benign neoplasm (2 sources)Melanocytic nevus of scalp; Translations: [Melanocytic nevi of scalp and neck]94-68-8092EezvxublSybqj and unspecified benign neoplasm (2 sources)Senile angioma; Translations: [Hemangioma of skin and subcutaneous tissue]80-36-3796WjkuewpsNslym bone disease and musculoskeletal deformities (4 sources)Osteopenia; Translations: [Other specified disorders of bone density and structure, unspecified site]60-11-6326RdtjgipoIqyrmnk on above:DEXA: 05/2024 Other circulatory disease (4 sources)Peripheral vascular disease; Translations: [Other specified peripheral vascular diseases]97-20-4850XvdubcjTmewc congenital anomalies (1 source)Congenital spondylolysis of lumbosacral region; Translations: [Congenital spondylolysis, lumbosacral region]Onset: 54-52-0149ZjgefoyXqymh connective tissue disease (1 source)Fibromyalgia; Translations: [Fibromyalgia]EpisodicOther connective tissue disease (2 sources)Radial styloid tenosynovitis; Translations: [Radial styloid tenosynovitis]Onset: 23-08-2528LttdvtswWuxey connective tissue disease (1 source)Muscle pain; Translations: [Myalgia, other site]EpisodicOther connective tissue disease (1 source)Tear of right rotator cuff; Translations: [Unspecified rotator cuff tear or rupture of right shoulder, not specified as traumatic]EpisodicOther connective tissue disease (1 source)Enthesopathy of knee; Translations: [Other bursitis of knee, left knee]EpisodicOther connective tissue disease (1 source)Medial epicondylitis of right humerus; Translations: [Medial epicondylitis, right elbow]EpisodicOther connective tissue disease (1 source)Disorder of muscle; Translations: [Other specified disorders of muscle]EpisodicOther connective tissue disease (4 sources)Pain in both feet; Translations: [Pain in right foot]03-06-2024 EpisodicOther female genital disorders (4 sources)Other specified noninflammatory disorders of vulva and perineum; Translations: [OTH SPEC NONINFLAMMD/O VULVA PERIN]Onset: 63-53-4752DhnxihybAgkgb lower respiratory disease (5 sources)Solitary pulmonary nodule; Translations: [SOLITARY PULMONARY NODULE] Onset: 26-38-6371WqehvunuTkxjc lower respiratory disease (3 sources)Nodule of lung; Translations: [Solitary pulmonary nodule]Episodic Other lower respiratory disease (1 source)Solitary nodule of lung; Translations: [Solitary pulmonary nodule] EpisodicOther lower respiratory disease (1 source)Lung field abnormal; Translations: [Other nonspecific abnormal finding of lung field]EpisodicOther nervous system disorders (7 sources)Chronic pain; Translations: [Other chronic pain]ChronicOther nervous system disorders (1 source)Other chronic painChronicOther nervous system disorders (2 sources)Meralgia paresthetica; Translations: [Meralgia paresthetica, unspecified lower limb]ChronicOther nervous system disorders (1 source)Carpal tunnel syndrome; Translations: [Carpal tunnel syndrome, right upper limb]Onset: 27-85-2067TzewjpjYalvk nervous system disorders (4 sources)Neuroma; Translations: [Other specified mononeuropathies]03-06-2024 ChronicOther nervous system disorders (1 source)Other acute postprocedural pain; Translations: [Other acute postprocedural pain]Onset: 25-73-6836CdmeqzglYjbnk nervous system disorders (1 source)Paresthesia; Translations: [Paresthesia of skin]EpisodicOther non- epithelial cancer of skin (2 sources)History of malignant basal cell neoplasm of skin; Translations: [Personal history of other malignant neoplasm of skin]50-18-6811MdrvauzwEuzvk non-traumatic joint disorders (1 source)Arthralgia of the pelvic region and thigh; Translations: [Pain in left hip]EpisodicOther non-traumatic joint disorders (3 sources)Hip pain; Translations: [Pain in left hip]96-67-8325XjcfttfhSgctz nutritional; endocrine; and metabolic disorders (1 source)Obesity; Translations: [Obesity, unspecified]ChronicOther nutritional; endocrine; and metabolic disorders (1 source)Overweight; Translations: [Overweight]EpisodicOther screening for suspected conditions (not mental disorders or infectious disease) (12 sources)Encounter for screening for malignant neoplasm of colon; Translations: [Encounter for screening mammogram for malignant neoplasm of breast]Onset: 21-81-8433AmbfdhhdHgpvd skin disorders (2 sources)Seborrheic keratosis; Translations: [Other seborrheic keratosis] 57-10-0249RagenvcaWplfb skin disorders (2 sources)Lentiginosis; Translations: [Other melanin hyperpigmentation] 42-75-9238NeykdikxEoxin upper respiratory disease (1 source)Seasonal allergic rhinitis; Translations: [Other seasonal allergic rhinitis]Onset: 12-83-6468ZtgdapzLervi upper respiratory infections (2 sources)Chronic frontal sinusitis; Translations: [Chronic frontal sinusitis] Onset: 48-74-3164FwhwehiAdvoq upper respiratory infections (1 source)Acute maxillary sinusitis; Translations: [Acute recurrent maxillary sinusitis]EpisodicPeripheral and visceral atherosclerosis (11 sources)Intermittent claudication of bilateral lower limbs co-occurrent and due to atherosclerosis; Translations: [Atherosclerosis of [place] arteries of extremities with intermittent claudication, bilateral legs]ChronicPleurisy; pneumothorax; pulmonary collapse (6 sources)Pleural effusion, not elsewhere classified; Translations: [Pleural effusion]Onset: 78-21-1283KsitwuqtDaylkgly codes; unclassified (9 sources)Obstructive sleep apnea syndrome; Translations: [Obstructive sleep apnea (adult) (pediatric)]37-23-1116QtsofyiItrsjodn codes; unclassified (2 sources)Obstructive sleep apnea (adult) (pediatric); Translations: [Obstructive sleep apnea (adult)(pediatric)]ChronicResidual codes; unclassified (1 source)Postmenopausal state; Translations: [Asymptomatic menopausal state] EpisodicSpondylosis; intervertebral disc disorders; other back problems (9 sources)Spondylosis without myelopathy or radiculopathy, cervical region; Translations: [Lumbosacral spondylosis without myelopathy]Onset: 01-07-2015 ChronicSpondylosis; intervertebral disc disorders; other back problems (15 sources)Thoracic back pain; Translations: [Pain in thoracic spine]Onset: 31-22-9849DwkadjjqCtvsoxn and strains (2 sources)Sprain of shoulder and upper arm; Translations: [Strain of unspecified muscle, fascia and tendon atshoulder and upper arm level, right arm, initial encounter]EpisodicSubstance-related disorders (14 sources)Nicotine dependence; Translations: [Nicotine dependence, cigarettes, uncomplicated]Onset: 02-43-5183UclafncDydihil on above:PET/CT: 08/2020, CT: no suspicious nodules: 2021, 12/2022, 03/2024, 10/2024Thyroid disorders (1 source)Hypothyroidism; Translations: [Hypothyroidism, unspecified]Onset: 55-71-8548XyhjqiuXymfxqtqb cerebral ischemia (1 source)Transient cerebral ischemia; Translations: [Transient cerebral ischemic attack, unspecified]ChronicUnclassified (3 sources)CONTACT W/AND (SUSP) EXPOS COVID-19; Translations: [CONTACT W/AND (SUSP) EXPOS COVID-19]Onset: 26-36-8657Yejcjmdprvig (1 source)Exposure to acute respiratory syndrome coronavirus 2; Translations: [Contact with and (suspected) exposure to COVID-19]Unclassified (1 source)History of disease caused by Severe acute respiratory syndrome coronavirus 2 (situation); Translations: [Personal history of COVID-19]Urinary tract infections (2 sources)Urinary tract infectious disease; Translations: [Urinary tract infection, site not specified]34-53-2113PqxbnwllMppil infection (1 source)Disease caused by 2019-nCoV; Translations: [COVID-19] Past or Other Problems Problem ClassificationProblemDateDocumented DateEpisodic/ChronicAcute posthemorrhagic anemia (1 source)Acute posthemorrhagic anemia; Translations: [Acute posthemorrhagic anemia] Resolved: 65-81-4921QrfowvdwBifcsq neoplasm of uterus (1 source)Intramural leiomyoma of uterus; Translations: [Intramural leiomyoma of uterus]Onset: 82-16-1290SmrewgknLxrd; stupor; and brain damage (1 source)Somnolence; Translations: [Somnolence] Resolved: 80-64-0054NqqqpdilOgcqjxox; including migraine (1 source)Headache; Translations: [Headache, unspecified]Onset: 01-21-2014 EpisodicMycoses (1 source)Tinea corporis; Translations: [Tinea corporis]Onset: 03-20-2015 EpisodicNonspecific chest pain (2 sources)Chest pain; Translations: [Chest pain, unspecified]Onset: 04-27-2014 EpisodicOther aftercare (1 source)Surgical follow-up; Translations: [Surgery follow-up examination] Onset: 42-83-3341ErreekfdXwhuv and unspecified benign neoplasm (1 source)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; Translations: [Benign neoplasm of liver and biliary passages]Onset: 94-66-1050QloibhquHaavc bone disease and musculoskeletal deformities (1 source)Other specified disorders of bone density and structure, unspecified site; Translations: [OTH D/O BONE DEN STRUCT UNS SITE]Onset: 26-29-9057Yyjbygfz Other bone disease and musculoskeletal deformities (1 source)Bone density finding; Translations: [Other specified disorders of bone density and structure, unspecified site]Onset: 28-32-8259GaggtijkEywsy circulatory disease (1 source)History of cerebrovascular accident without residual deficits; Translations: [Personal history of transient ischemic attack (TIA), and cerebral infarction without residual deficits] Resolved: 65-76-6900DgriozfnJdufs connective tissue disease (1 source)Pain in limb; Translations: [Pain in left finger(s)]Onset: 05-25-2017 EpisodicOther ear and sense organ disorders (1 source)Disorder of external ear; Translations: [Unspecified disorder of external ear]Onset: 34-76-2511JzkznrjrCfibe injuries and conditions due to external causes (1 source)History of fall; Translations: [History of falling] Resolved: 59-62-1080YdqzmnlhSphwi lower respiratory disease (4 sources)Other nonspecific abnormal finding of lung field; Translations: [OTH NONSPECIFIC ABN FIND LNG FIELD]Onset: 01-32-7960SsdueizlRaafi lower respiratory disease (1 source)Dyspnea, unspecified; Translations: [DYSPNEA UNSPECIFIED]Onset: 37-58-4246QrvrtzwjKfmix lower respiratory disease (1 source)Hemoptysis; Translations: [Hemoptysis]Onset: 67-31-8299UoxntjxxLyqvp lower respiratory disease (1 source)Dyspnea; Translations: [Dyspnea, unspecified]Onset: 99-91-9023Fiwidxmj Other non-traumatic joint disorders (5 sources)Pain in left hip; Translations: [PAIN IN LEFT HIP]Onset: 05-11-2022 EpisodicOther non-traumatic joint disorders (1 source)Hand joint pain; Translations: [Pain in joint, hand]Onset: 03-20-2015 EpisodicOther non-traumatic joint disorders (1 source)Arthralgia of the lower leg; Translations: [Pain in left knee]Onset: 12-49-4443RxqsvrycFedss nutritional; endocrine; and metabolic disorders (2 sources)Body mass index 25-29 - overweight; Translations: [Body mass index 28.0-28.9, adult]Onset: 42-17-2593HbgdwoosSlxmx nutritional; endocrine; and metabolic disorders (1 source)Abnormal weight gain; Translations: [Abnormal weight gain]Onset: 43-07-1102ZrgkibqbAanfw skin disorders (1 source)Asteatosis cutis; Translations: [Xerosis cutis]Onset: 03-07-2016 EpisodicOther skin disorders (1 source)Alopecia; Translations: [Nonscarring hair loss, unspecified]Onset: 12-51-7854JorjvakuFdmrimyv codes; unclassified (1 source)Idiopathic sleep related non-obstructive alveolar hypoventilation; Translations: [Idiopathic sleep related nonobstructive alveolar hypoventilation] Resolved: 79-00-2105DivvrgaUytkbivh codes; unclassified (1 source)Asymptomatic menopausal state; Translations: [ASYMPTOMATIC MENOPAUSAL STATE]Onset: 54-03-7197IudugabkZgpdduxf codes; unclassified (2 sources)Tobacco user; Translations: [Nondependent tobacco use disorder]Onset: 08-41-1775DyodfriaNjsqvgjfzip injury; contusion (2 sources)Contusion of right knee; Translations: [Contusion of right knee, initial encounter]Onset: 07-33-8744YenlmhdhKbptriahihoq (1 source)CONTACT W/AND (SUSP) EXPOS COVID-19; Translations: [CONTACT W/AND (SUSP) EXPOS COVID-19]Onset: 05-27-2022 Results Test NameValueInterpretationReference RangeFacilityEstimated glomerular filtration rate (GFR) non- Americanon 46-68-1649USK/1.73 sq M.predicted among non-blacks MDRD (S/P/Bld) [Vol rate/Area]mL/min/{1.73_m2}>=60 mL/min/1.73m [address] [place], [place] [address]Laboratory - Chemistry and Chemistry - challengeon 29-25-5619Qdauzelzyq [Mass/Vol]0.71 mg/dL0.55-1.02[facility] Healthcare SystemGFR/1.73 sq M.predicted MDRD (S/P/Bld) [Vol rate/Area] mL/min/{1.73_m2}>=60 mL/min/1.73m [address] [place], [place] [address]MM TOMOSYNTHESIS SCREENING BIon 44-22-[address]196[address] [address] Mammography Report Signed Patient: CANDELARIA FOSTER MR#: [id number] : 1960 Acct:[id number] Age/Sex: 63 / F ADM Date: 06/15/24 Loc: MAMMO Attending Dr: Nimco Fajardo Ordering Physician: Nimco Fajardo Results: Date of Service: 06/15/24 Follow Up: Procedure(s): MM tomosynthesis screening BI Accession Number(s): [id number] cc: Nimco Fajardo; Clint Ann D.O. Patient Name: CANDELARIA FOSTER MR#: [id number] : 1960 Exam Date: 06/15/2024 Ordering Doctor: [...] uterine cancer at age 67. LOCATION: [facility] BREAST COMPOSITION: There are scattered areas of fibroglandular density. FINDINGS: DIAGNOSTIC CATEGORY 1--NEGATIVE. NO CHANGE FROM COMPARISON ASSESSMENT. RIGHT BREAST: No significant suspicious finding. LEFT BREAST: No significant suspicious finding. RECOMMENDATIONS: ROUTINE MAMMOGRAM AND CLINICAL EVALUATION IN 12 MONTHS. PLEASE NOTE: A NORMAL MAMMOGRAM DOES NOT EXCLUDE THE POSSIBILITY OF BREAST CANCER. A CLINICALLY SUSPICIOUS PALPABLE LUMP SHOULD BE BIOPSIED. Dictated by: Elmer Vanegas MD on 06/15/2024 at 12:40 Approved by: Elmer Vanegas MD on 06/15/2024 at 12:41 Dictated By: Elmer Vanegas M.D. Signed By: 06/15/24 1242 DD/ 1242 TD/TT: Heel Slicker:TBHRadiology, RadiologistMD - 06/15/2024 [place] [address] Mammography Report Signed Patient: CANDELARIA FOSTER MR#: [id number] : 1960 Acct:[id number] Age/Sex: 63 / F ADM Date: 06/15/24 Loc: MAMMO Attending Dr: Nimco Fajardo Ordering Physician: Nimco Fajardo Results: Date of Service: 06/15/24 Follow Up: Procedure(s): MM tomosynthesis screening BI Accession Number(s): [id number] cc: Nimco Fajardo; Clint Ann D.O. Patient Name: CANDELARIA FOSTER MR#: [id number] : 1960 Exam Date: 06/15/2024 Ordering Doctor: [...] uterine cancer at age 67. LOCATION: The [facility] BREAST COMPOSITION: There are scattered areas of fibroglandular density. FINDINGS: DIAGNOSTIC CATEGORY 1--NEGATIVE. NO CHANGE FROM COMPARISON ASSESSMENT. RIGHT BREAST: No significant suspicious finding. LEFT BREAST: No significant suspicious finding. RECOMMENDATIONS: ROUTINE MAMMOGRAM AND CLINICAL EVALUATION IN 12 MONTHS. PLEASE NOTE: A NORMAL MAMMOGRAM DOES NOT EXCLUDE THE POSSIBILITY OF BREAST CANCER. A CLINICALLY SUSPICIOUS PALPABLE LUMP SHOULD BE BIOPSIED. Dictated by: Elmer Vanegas MD on 06/15/2024 at 12:40 Approved by: Elmer Vanegas MD on 06/15/2024 at 12:41 Dictated By: Elmer Vanegas M.D. Signed By: 06/15/24 124 DD/ 124 TD/TT: Heel Slicker: [facility] MedicineRadiology Study observation (narrative)[facility] TOMOSYNTHESIS SCREENING BIOrdered By: Radiologist Radiology on 72-26-6593[facility] Work Phone: XR DEXA AXIAL SKELETONon 69-06-5521[address] [address] XRay Report Signed Patient: CANDELARIA FOSTER MR#: [id number] : 1960 Acct:[id number] Age/Sex: 63 / F ADM Date: 06/15/24 Loc: MAMMO Attending Dr: Nimco Fajardo Ordering Physician: Nimco Fajardo Date of Service: 06/15/24 Procedure(s): XR DEXA axial skeleton Accession Number(s): [id number] cc: Nimco Fajardo; Clint Ann D.O. [place] [id number] Patient Name: CANDELARIA FOSTER MRN: [id number] date: 1960 Sex: F Assigned Patient Location: [facility] Current Patient Location: [facility] Accession/Order Number: [id number] Exam Date: 06/15/2024 09:07 Report Date: 06/15/2024 11:53 At the request of: NIMCO FAJARDO Procedure: XR DEXA axial skeleton EXAMINATION: XR [...] have osteopenia or low BMD [12, 13]. Skyler Luna MSspan SL, Rosalinda KL, Dmitry EM, oJvani KG, AJ, Gauri ES. The clinician's guide to prevention and treatment of osteoporosis. Osteoporos Int. 2021;3310):9016-8377. doi: 10.1007/m91860-346-50991-x. Epub 2021Oct 22. Erratum in: Osteoporos Int. 2021Jan 21;: PMID: 84772437; PMCID: [id number]. Electronically authenticated by: ELMER VANEGAS Date: 06/15/2024 11:53 Dictated By: Elmer Vanegas M.D. Signed By: 06/15/24 1446 DD/ 1153 TD/TT: Heel Slicker:ANAHRadiology, Radiologist, - 06/15/2024 [place] [address] XRay Report Signed Patient: CANDELARIA FOSTER MR#: [id number] : 1960 Acct:[id number] Age/Sex: 63 / F ADM Date: 06/15/24 [facility]: Nimco Fajardo Ordering Physician: Nimco Fajardo Date of Service: 06/15/24 Procedure(s): XR DEXA axial skeleton Accession Number(s): [id number] cc: Nimco Fajardo; Clint Ann D.O. The [address] [address] Patient Name: CANDELARIA FOSTER MRN: [id number] date: 1960 Sex: F Assigned Patient Location: [facility] Current Patient Location: [facility] Accession/Order Number: [id number] Exam Date: 06/15/2024 09:07 Report Date: 06/15/2024 11:53 At the request of: NIMCO FAJARDO Procedure: XR DEXA axial skeleton EXAMINATION: XR [...] prevention and treatment of osteoporosis. Osteoporos Int. 2021;33(10):8044-2965. doi: 10.1007/k83754-744-77507-c. Epub 2021Oct 22. Erratum in: Osteoporos Int. 2021Jan 21;: PMID: 16496751; PMCID: [id number]. Electronically authenticated by: ELMER VANEGAS Date: 06/15/2024 11:53 Dictated By: Elmer Vanegas M.D. Signed By: 06/15/24 1446 DD/ 1153 TD/TT: Heel Slicker: [facility] HealthcareRadiology Study observation (narrative)[facility] MedicineXR DEXA AXIAL SKELETONOrdered By: Radiologist Radiology on 41-16-0278QMZR [facility] Work Phone: IGP,APTIMA HPV,AGE GDLNon 60-63-3236[facility] GDLN ACOG TESTINGNote.[facility] HealthcareComment on above:TESTS RESULT FLAG UNITS REF RANGE LAB Clinician Provided Cytology Information Source.............Vagina No. of containers..01 ThinPrep Vial Age Algo ACOG Deja... 30-65 01 FLAG LEGEND: L-Low Normal,H-High Normal,LL-Alert Low,HH-Alert High <-Panic Low,>-Panic High,A-Abnormal,AA-Critical Abnormal Performed at: 01 =[address] [address] Armida Arechiga MD, HPV APTIMANegativeNegativeLOGAN REGIONAL [facility]ITAL HealthcareComment on above:This nucleic acid amplification test detects fourteen high- risk HPV types (16,18,31,33,35,39,45,51,52,56,58,59,66,68) without differentiation. Performed at: =[facility] [id number] Contract Programmer: Armida Arechiga MD, Phone: [phone] Performed at: - [facility], [place] [id number] Contract Programmer: Armida Arechiga MD, Phone: [phone] IGP, APTIMA HPV, RFX 16/18,45Note.[facility] HealthcareComment on above:TESTS RESULT FLAG UNITS REF RANGE LAB DIAGNOSIS: 02 NEGATIVE FOR INTRAEPITHELIAL LESION OR MALIGNANCY. CELLULAR CHANGES ASSOCIATED WITH ATROPHY ARE PRESENT. Specimen adequacy: 02 Satisfactory for evaluation. Endocervical component may not be distinguished in cases of atrophy. Performed by: Germain Mathur, Blockers Skiver ([facility]) . 02 Note: Note 02 The Pap [...] High <-Panic Low,>-Panic High,A-Abnormal,AA-Critical Abnormal Performed at: [facility] [address] [place] [address] Armida Arechiga MD, SPATULA-ALONE VAGINA CLINISYNCNOIN HealthcareUrinalysis macro (dipstick) panel (U)on 05-21-2024 Bilirubin, UANegativeNegative - 4(70) +++ mg/dLNOMS HealthcareBlood, UAPositive Negative - 50 Zachary/mcLNOMS HealthcareComment on above:traceClarity, UAClearNOMS HealthcareColor, UAYellowNOMS HealthcareGlucose, UANegativeNegative - 2000(110) ++++ mg/dLNOMS HealthcareInterpretation and review of laboratory resultsAbnormal [facility] HealthcareKetones, UANegativeNegative - 160(16) ++++ mg/dLNOIN Healthcare Leukocytes, UANegativeNegative - 500+++ Phu/mcLNOIN HealthcareNitrite, UA NegativeNegative - PositiveNOMS HealthcarepH, UA5.55 - 9NOMS HealthcareProtein, UANegativeNegative - 2000(20) ++++ mg/dLNOMS HealthcareSpec Grav, UA1.0151 - 1.03NOIN HealthcareUrobilinogen, UA0.20.2 - 12 mg/dLNOIN HealthcareNOMS HealthcareCytology Cervical or vaginal smear or scraping studyon 89-51-7376FJBT HealthcareHERPES SIMPLEX VIRUS (HSV) CULTUREon 86-58-2546NOK Culture/TypeComment AbnormalThe [facility] ColumbusComment on above:Result Comment: Positive for Herpes simplex virus type-2. Typing was confirmed by monoclonal antibody microscopic immunofluorescence.Performed By: #### HSVCUL #### [facility] Laboratory [address] [place] [address] Dr. Jessica Epperson-19 PCR ([facility])on 88-97-9956OCOP-CoV-2 (COVID-19) RNA JANICE+probe Ql (Unsp spec)Not detectedNormalNOT DETECTEDThe [facility] Comment on above:Result Comment: This test is not yet approved or cleared by the [place] FDA. When there are no FDA-approved or cleared tests available, and other criteria are met, FDA can make tests available under an emergency access mechanism called an Emergency Use Authorization (EUA). The EUA for this test is supported by the [place] of Health and Human Service's (HHS's) declaration that circumstances exist to justify the emergency use of in vitro diagnostics for the detection and/or diagnosis of the virus that causes COVID- 19. This EUA will remain in effect (meaning [...] of clinical signs and symptoms consistent with SARS-CoV-2.Performed By: #### CVDTBH #### [facility] [address] [place] [address] Dr. Jessica SainzXR CSPINE 2_3 VIEWSon 73-77-2992LM CSPINE 2_3 VIEWSEXAMINATION: XR CSPINE 2_3 VIEWS HISTORY: Cervical spondylosis without myelopathy COMPARISON: No relevant comparison available. FINDINGS: BONES: 3 mm retrolisthesis of C3 in relation to C4. Moderate spondylosis and facet osteoarthropathy DISC SPACES: Moderate multilevel disc space narrowing PARASPINOUS: Negative. No paraspinous abnormality is seen. OTHER: Negative. IMPRESSION: Moderate degenerative changes 3 mm retrolisthesis of C3 on C4 Electronically authenticated by: ELMER VANEGAS Date: 2022-05-16 11:55[facility] HospitalXR DEXA BONE DENSITYon 17-00-0904JO DEXA BONE DENSITY EXAMINATION: XR DEXA BONE [...] Electronically authenticated by: GAMA MI Date: 2022-05-12 06:51[facility] HospitalMG MAMM SCREEN 3D ARNOLDO CADon 53-03-6271LL MAMM SCREEN 3D ARNOLDO CAD Patient: CANDELARIA FOSTER Exam Date: 05/11/2022 : 1960 Gender:F Ordering : DR SHARMAINE CHAUDHARI . Admission #: [id number] Family : Order #: [id number] CLICK HERE TO VIEW EXAM RADIOLOGY REPORT [...] Treatments None Family Cancers None LOCATION: The [facility] BREAST COMPOSITION: Scattered areas fibroglandular density. FINDINGS: [...] LUMP SHOULD BE BIOPSIED. Dictated by: Elmer Vanegas MD on 05/12/2022 at 08:54 Approved by: Elmer Vanegas MD on 05/12/2022 at 08:59[facility] HospitalXR CHEST 2 Von 14-83-0306NI CHEST 2 VEXAM: XR CHEST 2 V HISTORY: Pleural effusion [...] Electronically authenticated by: GIN DYSON Date: 2022-05-11 19:50[facility] HospitalXR HIP LT 2 3V W PELVISon 63-85-2766SC HIP LT 2 3V W PELVIS EXAM: [...] Electronically authenticated by: ZIGGY YADAV Date: 2022-05-11 18:01[facility] ACOG PANEL 2: 30 to 65on 04-30-2022..NormalThe [facility] Hospital - ColumbusComment on above:Result Comment: Performed at: WBPerformed By: #### [id number] #### [facility] Laboratory [address] [place] [address] Dr. Jessica SainzAge Gdln ACOG Qxedvoe22-53FapoteQdrMercy Health Urbana HospitalComment on above:Performed By: #### [id number] #### [facility] [address] [address] [address] Jessica SainzDIAGNOSIS:CommentKeenan Private HospitalComselect specialty hospital on above: Result Comment: NEGATIVE FOR INTRAEPITHELIAL LESION OR MALIGNANCY. CELLULAR CHANGES ASSOCIATED WITH ATROPHY ARE PRESENT. Performed at: WBPerformed By: #### [id number] #### [facility] [address] [address] [address] Jessica Germain AptimaNegativeNormalNegativePremier Health Miami Valley Hospital SouthComselect specialty hospital on above:Result Comment: This nucleic acid amplification test detects fourteen high-risk HPV types (16,18,31,33,35,39,45,51,52,56,58,59,66,68) without differentiation. Performed at: =GPerformed By: #### [id number] #### [facility] [address] [place] [address] Dr. Jessica Germain Genotype ReflexCommentNoMercy Health Urbana HospitalComment on above:Result Comment: Criteria not met, HPV Genotype not performed. Performed at: WBPerformed By: #### [id number] #### [facility] [address] [place] [address] Dr. Jessica SainzMethodology:CommentThe [facility] on above: Result Comment: This liquid based ThinPrep(R) pap test was screened with the use of an image guided system. Performed at: WBPerformed By: #### [id number] #### [facility] [address] [place] [address] Dr. Jessica SainzNote:CommentThe [facility] on above:Result Comment: The Pap smear is a screening test designed to aid in the detection of premalignant and malignant conditions of the uterine cervix. It is not a diagnostic procedure and should not be used as the sole means of detecting cervical cancer. Both false-positive and false-negative reports do occur. . Performed at: WBPerformed By: #### [id number] #### [facility] [address] [place] [address] Dr. Jessica Mauricioformed by:CommentThe [facility] on above: Result Comment: Essence Osborn, Blockers Skiver (ASCP) Performed at: WBPerformed By: #### [id number] #### [place] [address] [address] Jessica SainzSpecimealek adequacy:CommentThe [facility] on above:Result Comment: Satisfactory for evaluation. Endocervical component may not be distinguished in cases of atrophy. Performed at: WBPerformed By: #### [id number] #### [facility] [address] [place] [address] Dr. Jessica SainzCT CHEST WO CONon 54-01-6282RC CHEST WO CONEXAMINATION: CT CHEST WO CON HISTORY: Lung field abnormal ; [...] Mild emphysematous changes. Electronically authenticated by: GAMA IM Date: 2022-01-17 09:30[facility] HospitalXR CHEST COMP MIN 4Von 30-44-5975NH CHEST COMP MIN 4V EXAMINATION: XR CHEST [...] layering pleural effusion Electronically authenticated by: ELMER VANEGAS Date: 2022-01-07 07:18[facility] HospitalCBC AUTO DIFFon 71-25-7822CSGJ #0.1 103/ulNormal0.0-0.1The [facility] - ColumbusComment on above:Performed By: #### CCBFS #### [facility] [address] [place] [address] Dr. Yilan ChangBasophils/100 WBC (Bld)1.7 %Normal0.2-2.0The [facility] Comment on above:Performed By: #### CCBFS #### [facility] [address] [place] [address] Dr. Jessica Dixon #0.5 103/ulNormal0.0-0.7The [facility] - ColumbusComment on above: Performed By: #### CCBFS #### [facility] [address] [place] [address] Dr. Jessica Almodovarosinophils/100 WBC (Bld)7.9 %Critically high0.9-7.0The [facility] ColumbusComment on above:Performed By: #### CCBFS #### [facility] [address] [place] [address] Dr. Jessica Almodovarrythrocyte distribution width (RBC) [Ratio]13.9 %Czjkjy54.0-15.0 The [facility] ColumbusComment on above:Performed By: #### CCBFS #### [facility] [address] [place] [address] Dr. Jessica SainzHematocrit (Bld) [Volume fraction]41.7 %Waufai59.0-48.0The [facility] - ColumbusComment on above:Performed By: #### CCBFS #### [facility] [address] [place] [address] Dr. Jessica SainzHemoglobin (Bld) [Mass/Vol]13.0 g/wHCtonqe35.0-16.0The [facility] ColumbusComment on above:Performed By: #### CCBFS #### [facility] [address] [place] [address] Dr. Jessica Forbes #0.01 10e3/ulNormal0.00-0.03The [facility] - ColumbusComment on above:Performed By: #### CCBFS #### [facility] [address] [place] [address] Dr. Jessica Forbes %0.2 %Normal0.0-0.5The [facility] - ColumbusComment on above: Performed By: #### CCBFS #### [facility] [address] [place] [address] Dr. Jessica Wan #1.5 103/ulNormal1.2-3.8The [facility] ColumbusComment on above:Performed By: #### CCBFS #### [facility] [address] [place] [address] Dr. Jessica Kuomphocytes/100 WBC (Bld)25.4 %Edrpnp05.5-60.0The [facility] HospitalComment on above:Performed By: #### CCBFS #### [facility] [address] [place] [address] Dr. Jessica Velázquez DIFF REQNONormalThe [facility] - ColumbusComment on above: Performed By: #### CCBFS #### [facility] [address] [place] [address] Dr. Jessica Conteh (RBC) [Entitic mass]27.4 mwYydlgj26.7-34.0The [facility] ColumbusComment on above:Performed By: #### CCBFS #### [facility] [address] [place] [address] Dr. Jessica Conteh (RBC) [Mass/Vol]31.2 g/dWMxzvso55.9-35.2The [facility] ColumbusComment on above:Performed By: #### CCBFS #### [facility] [address] [place] [address] Dr. Jessica Conteh (RBC) [Entitic vol]87.8 yEWdyqoq78.0-99.0The [facility] ColumbusComment on above:Performed By: #### CCBFS #### [facility] [address] [place] [address] Dr. Jessica Han #0.5 103/ulNormal0.3-0.8The [facility] ColumbusComment on above:Performed By: #### CCBFS #### [facility] [address] [place] [address] Dr. Jessica Priceocytes/100 WBC (Bld)8.1 %Normal1.7-12.0The [facility] Comment on above:Performed By: #### CCBFS #### [facility] [address] [place] [address] Dr. Jessica De La Cruz #3.3 103/ulNormal1.4-6.5The [facility] - ColumbusComment on above:Performed By: #### CCBFS #### [facility] [address] [place] [address] Dr. Jessica Clarosutrophils/100 WBC (Bld)56.7 %Kpcdlg17.0-75.0The [facility] ColumbusComment on above:Performed By: #### CCBFS #### [facility] [address] [place] [address] Dr. Jessica Rutherfordlet mean volume (Bld) [Entitic vol]9.7 fLNormal9.5-13.5The [facility] ColumbusComment on above:Performed By: #### CCBFS #### [facility] [address] [place] [address] Dr. Jessica GlezT266 103/vpEieyxr985-908Jtj [facility] ColumbusComment on above: Performed By: #### CCBFS #### [facility] [address] [place] [address] Dr. Jessica SainzRBC4.75 106/ulNormal4.20-5.40The [facility] - ColumbusComment on above:Performed By: #### CCBFS #### [facility] [address] [place] [address] Dr. Jessica SainzWBC5.8 103/ulNormal4.0-11.0The [facility] ColumbusComment on above: Performed By: #### CCBFS #### [facility] [address] [place] [address] Dr. Jessica SainzLIPID PROFILEon 11-65-3654JHHM-HDL RATIO [facility] HospitalComment on above:Result Comment: 3.3 - 4.4 LOW RISK 4.4 - 7.1 AVERAGE RISK 7.1 - 11.0 MODERATE RISK >11.0 HIGH RISKPerformed By: #### HSVCUL #### [facility] [address] [address] [address] Jessica SanizCholesterol [Mass/Vol]208 mg/dLCritically high<=200The [facility] ColumbusComselect specialty hospital on above:Performed By: #### HSVCUL #### [facility] [address] [address] [address] Jessica SainzCholesterol in HDL [Mass/Vol]63 mg/dLCritically ezvg64-88Crk [facility] ColumbusComment on above:Performed By: #### HSVCUL #### [facility] [address] [address] [address] Jessica SainzCholesterol in LDL [Mass/Vol]122.8 mg/dLKeenan Private HospitalComment on above:Performed By: #### HSVCUL #### [facility] [address] [place] [address] Dr. Jessica Beestertylor.total/Cholesterol in HDL [Mass ratio]3.3 {ratio} NormalThe [facility] - ColumbusComment on above:Performed By: #### HSVCUL #### [facility] [address] [place] [address] Dr. Jessica SainzHDL NORMAL> or = 60 mg/dl - LOW CARDIOVASCULAR RISK <40 mg/dl - HIGH CARDIOVASCULAR RISKKeenan Private HospitalComment on above:Performed By: #### HSVCUL #### [facility] [address] [place] [address] Dr. Jessica SainzLDL CALC NORMALSEE BELOWKeenan Private HospitalComment on above:Result Comment: <100 mg/dl OPTIMAL 100 - 129 mg/dl NEAR OR ABOVE OPTIMAL 130 - 159 mg/dl BORDERLINE HIGH 160 - 189 mg/dl HIGH >190 mg/dl VERY HIGH Performed By: #### HSVCUL #### [facility] [address] [place] [address] Dr. Jessica SainzTriglyceride [Mass/Vol]111 mg/dLNormal<=150[facility] Comment on above:Performed By: #### HSVCUL #### [facility] [address] [address] [address] Jessica OropezaLDL CALC22.2 mg/dLNormalThe [facility] ColumbusComment on above: Performed By: #### HSVCUL #### [facility] [address] [place] [address] Dr. Jessica SainzPROF 14(COMP METB)on 04-89-3486Zekvjim [Mass/Vol]4.0 g/dLNormal 3.4-5.0The [facility] ColumbusComment on above:Performed By: #### HSVCUL #### [facility] [address] [place] [address] Dr. Jessica SainzAlbumin/Globulin [Mass ratio]1.0 {ratio}NormalThe [facility] - ColumbusComment on above:Performed By: #### HSVCUL #### [facility] [address] [place] [address] Dr. Jessica CamaraP [Catalytic activity/Vol]111 U/RGfkhvo91-325Nvg [facility] ColumbusComment on above:Performed By: #### HSVCUL #### [facility] [address] [place] [address] Dr. Jessica Fowler [Catalytic activity/Vol]21 U/NYvhyle33-97Eyr [facility] ColumbusComment on above:Performed By: #### HSVCUL #### [facility] [address] [place] [address] Dr. Jessica Lemons gap [Moles/Vol]11.5 mmol/LNormalThe [facility] Comment on above:Performed By: #### HSVCUL #### [facility] [address] [place] [address] Dr. Jessica SainzAST [Catalytic activity/Vol]16 U/QSetcoc38-14Top [facility] ColumbusComment on above:Performed By: #### HSVCUL #### [facility] [address] [place] [address] Dr. Jessica SainzBilirubin [Mass/Vol]0.4 mg/dLNormal0.2-1.0The [facility] Comment on above:Performed By: #### HSVCUL #### [facility] [address] [address] [address] Jessica SainzCalcium [Mass/Vol]9.2 mg/dLNormal8.5-10.1The [facility] Comment on above:Performed By: #### HSVCUL #### [facility] [address] [address] [address] Jessica SainzChloride [Moles/Vol]102 mmol/RDuzgfo64-359Sbq [facility] Comment on above:Performed By: #### HSVCUL #### [facility] [address] [address] [address] Jessica SainzCO2 [Moles/Vol]29.8 mmol/RWglzdl77.0-32.0The [facility] Comment on above:Performed By: #### HSVCUL #### [facility] [address] [place] [address] Dr. Jessica SainzCreatinine [Mass/Vol]0.62 mg/dLNormal0.55-1.02The [facility] ColumbusComment on above:Performed By: #### HSVCUL #### [facility] [address] [address] [address] Jessica AlmodovarGFR-AF SOUTH KOREAN>60Normal>=60The [facility] - ColumbusComment on above:Performed By: #### HSVCUL #### [facility] [address] [place] [address] Dr. Jessica AlmodovarGFR-NON AF SOUTH KOREAN>60Normal>=60The [facility] - ColumbusComment on above:Performed By: #### HSVCUL #### [facility] [address] [address] [address] Jessica SainzGlobulin (S) [Mass/Vol]4.2 g/dLNormalThe [facility] - ColumbusComment on above:Performed By: #### HSVCUL #### [facility] [address] [address] [address] Jessica SainzGlucose [Mass/Vol]92 mg/hOJlhmsn70-182Zjf [facility] Comment on above:Performed By: #### HSVCUL #### [facility] [address] [address] [address] Jessica SainzPotassium [Moles/Vol]4.3 mmol/LNormal3.5-5.1The [facility] Comment on above:Performed By: #### HSVCUL #### [facility] [address] [address] [address] Jessica SainzProtein [Mass/Vol]8.2 g/dLNormal6.4-8.2The [facility] Comment on above:Performed By: #### HSVCUL #### [facility] [address] [address] [address] Jessica SainzSodium [Moles/Vol]139 mmol/IEqzfrc471-766Qgi [facility] Comment on above:Performed By: #### HSVCUL #### [facility] [address] [place] [address] Dr. Jessica SainzUrea nitrogen [Mass/Vol]16.0 mg/dLNormal7.0-18.0The [facility] - ColumbusComment on above:Performed By: #### HSVCUL #### [facility] [address] [address] [address] Jessica Banuelos nitrogen/Creatinine [Mass ratio]25.8 mg/mgKeenan Private HospitalComment on above:Performed By: #### HSVCUL #### [facility] [address] [place] [address] Dr. Jessica GarciaHoalek 91-77-0066ZRO3.419 uIU/mLNormal0.358-3.740Prem[facility] Hospital SouthComment on above:Performed By: #### HSVCUL #### [facility] [address] [place] [address] Dr. Jessica SainzVITAMIN D 25 OHon 30-67-4299WAC D 25-OH39.3 ng/mLNormalThe [facility] - ColumbusComment on above:Performed By: #### VITAD #### [facility] [address] [place] [address] Dr. Jessica Brandon D RANGESSEE [facility] HamiltonComselect specialty hospital on above: Result Comment: <20 ng/mL Vit D deficient 20 - <30 ng/mL Vit D insufficient 30 - 100 ng/mL Vit D sufficient >100 ng/mL Potential ToxicityPerformed By: #### VITAD #### [facility] [address] [place] [address] Dr. Jessica SainzACID FAST SMEAR AND CXon 17-54-0383Paqo Fast CultureNegative [facility] on above:Result Comment: No acid fast bacilli isolated after 6 weeks.Performed By: #### HSVCUL #### [facility] [address] [place] [address] Dr. Jessica SainzAcid Fast SmearNegativeKeenan Private HospitalComselect specialty hospital on above:Performed By: #### HSVCUL #### [facility] [address] [place] [address] Dr. Jessica Bellamy Specimen ProcessingDirect InoculationKeenan Private HospitalComselect specialty hospital on above:Performed By: #### HSVCUL #### [facility] [address] [place] [address] Dr. Jessica Sanon CULTUREon 94-50-6583Ibjofd (Mycology) CultureFinal report [facility] HospitalComselect specialty hospital on above:Performed By: #### CCBFS #### [facility] [address] [place] [address] Dr. Jessica Singer StainFinal reportKeenan Private HospitalComselect specialty hospital on above:Performed By: #### CCBFS #### [facility] [address] [place] [address] Dr. Jessica Marion 1ComCleveland Clinic Union HospitalComselect specialty hospital on above:Result Comment: JOJO/Calcofluor preparation: no fungus observed.Performed By: #### CCBFS #### [facility] [address] [place] [address] Dr. Jessica Marion Comment: No yeast or mold isolated after 4 weeks.BODY FLUID CULTUREon 26-65-7701Pnmxdpfrr Culture, Extended IncubationFinal report [facility] HospitalComment on above:Performed By: #### HSVCUL #### [facility] [address] [place] [address] Dr. Jessica Lopez Fluid Culture, SterileFinal reportKeenan Private HospitalComment on above:Performed By: #### HSVCUL #### [facility] [address] [place] [address] Dr. Jessica Marion 1CommentKeenan Private HospitalComment on above:Result Comment: No growth in 56 - 72 hours.Performed By: #### HSVCUL #### [facility] [address] [place] [address] Dr. Jessica Marion Comment: No anaerobes recovered. No anaerobic growth after 14 daysLAB DAVID MISC TESTon 86-31-7947Ewjjpyss Lab CommentKeenan Private HospitalComselect specialty hospital on above:Result Comment: [facility] Laboratories IncPerformed By: #### LCMISC #### [facility] [address] [place] [address] Dr. Jessica Telles Test Code or MnemonicUniversity Hospitals Health System Comment on above:Result Comment: [id number] By: #### LCMISC #### [facility] [address] [place] [address] Dr. Jessica Telles Test NameComCleveland Clinic Union HospitalComselect specialty hospital on above:Result Comment: RHEUMATOID FACTORPerformed By: #### LCMISC #### [facility] [address] [place] [address] Dr. Jessica Telles Test ResultsComCleveland Clinic Union HospitalComselect specialty hospital on above:Result Comment: Reference lab report sent via fax.Performed By: #### LCMISC #### [facility] [address] [place] [address] Dr. Jessica Joy, BODY FLUIDon 31-51-4411hJ, Body Fluid7.6NormalNot Estab.The [facility] Hospital - ColumbusComment on above:Result Comment: The reference interval(s) and other method performance specifications have not been established for this body fluid. The test result must be integrated into the clinical context for interpretation.Performed By: #### BDYFLPH #### [facility] [address] [place] [address] Dr. Jessica SainzAMYLASE, BODY FLUIDon 40-67-7507Atzxisj [Catalytic activity/Vol] 40 U/LNormalThe [facility] on above:Result Comment: : BODY FLUID TYPE : AMYLASE : : : : : Lymph : 50 - 83 : : : : : Peritoneal : : : Fluid : 88 - 109 : : : : : Saliva : : : (Mixed Glands) : 08299 - [id number] : : : : . [place] W, [place] V. Reference Intervals for Adults and Children 2008. Ninth Edition (V9.1) [employer], [facility]; [place]: December 2008. The method performance specifications have not been established for this test in body fluid. The test result should be integrated into the clinical context for interpretation.Performed By: #### HSVCUL #### [facility] [address] [place] [address] Dr. Jessica SainzCELL COUNT BODY FLUIDon 34-14-7518Sssbtmw, SerousClearNormalClear The [facility] - ColumbusComment on above:Performed By: #### CCBFS #### [facility] [address] [place] [address] Dr. Jessica Milian, SerousStrawNormMercy Health Willard HospitalComment on above: Result Comment: Colorless to Pale Yellow/StrawPerformed By: #### CCBFS #### [facility] [address] [address] [address] Jessica SainzComments:NormalThe [facility] Hospital - ColumbusComment on above:Performed By: #### CCBFS #### [facility] [address] [address] [address] Jessica Almodovarosinophils/100 WBC (Bld)8 %NormalNot Estab.The [facility] Comment on above:Performed By: #### CCBFS #### [facility] [address] [place] [address] Dr. Jessica Amatoing Cells, SerousNoMercy Health Urbana HospitalComment on above: Performed By: #### CCBFS #### [facility] [address] [place] [address] Dr. Jessica SainzLymphocytes/100 WBC (Bld)27 %NormalNot Estab.The [facility] - ColumbusComment on above:Performed By: #### CCBFS #### [facility] [address] [place] [address] Dr. Jessica Garcia, Ctptho75 %NormalNot Estab.[facility] Comment on above:Performed By: #### CCBFS #### [facility] [address] [place] [address] Dr. Jessica SainzNucleated Cells, Kbkozy5381 /fn8Ctyhmnjwih high0-499The [facility] Hospital - ColumbusComment on above:Result Comment: Pleural Fluid, with <1000 Nucleated cells/uL has been associated with transudates while >1000 uL may be seen in exudates.Performed By: #### CCBFS #### [facility] [address] [address] [address] Jessica Quinonez, Flwddd43 %Critically high0-24Prem[facility] Hospital SouthComment on above:Performed By: #### CCBFS #### [facility] [address] [place] [address] Dr. Yilan ChangRBC, SerousRareNormalNot Estab.[facility] SouthComment on above:Performed By: #### CCBFS #### [facility] [address] [address] [address] Jessica SainzGLUCOSE BODYFLUIDon 01-82-3161Uxzvwso, Body Fluid91 mg/dLNormal [facility] SouthComment on above:Result Comment: : BODY FLUID TYPE : GLUCOSE : [...] Children 2007. Ninth edition (V9.1) [facility]; [place]: December 2008. The reference intervals and other method performance specifications have not been established for this test. The test result should be integrated into the clinical context for interpretation.Performed By: #### BFGLUC #### [facility] [address] [place] [address] Dr. Lopez ChangLACTIC ACID DEHYDROGENASE (LD), BODY FLUon 24-41-1441GC, Body Cxkil554 IU/LNormalThe [facility] Hospital - ColumbusComment on above:Result Comment: : BODY FLUID TYPE : LDH : [...] 2008. Ninth Edition (V9.1) [employer], [facility]; [place]: December 2008. The reference intervals and other method performance specifications have not been established for this test. The test result should be integrated into the clinical context for interpretation.Performed By: #### CCBFS #### [facility] [address] [place] [address] Dr. Jessica SainzPROTEIN, TOTAL, BODY FLUIDon 70-55-7720Fwldscs, Body Fluid4.4 g/dLNormMercy Health Willard HospitalComment on above:Result Comment: : BODY FLUID TYPE : TOTAL PROTEIN [...] 0.9 : : : : . [place] W, [place] V. Reference Intervals for Adults and Children 2008. Ninth Edition (V9.1) [employer], [facility]; [place]: December 2008. The method performance specifications have not been established for this test in body fluid. The test result should be integrated into the clinical context for interpretation.Performed By: #### TPBF #### [facility] [address] [place] [address] Dr. Jessica SainzCYTOLOGYon 88-15-3607EQGJ TO REF LAB2021[facility] Private HospitalComment on above:Performed By: #### CYTO #### [facility] [address] [place] [address] Dr. Jessica SainzXR CHEST 1 Von [id number] CHEST 1 VEXAMINATION: XR CHEST 1 V HISTORY: Dyspnea COMPARISON: CT chest [...] Electronically authenticated by: GAMA [place] Date: 2021 10:58[facility] Private HospitalCT CHEST WO CONon [id number] CHEST WO CONEXAMINATION: CT CHEST WO CON HISTORY: Solitary nodule of lung [...] Electronically authenticated by: GAMA MI Date: 2021-09-30 16:57[facility] Private HospitalCNPNon 97-41-8488MVEDVgaawygur (GYNML) -------CANDELARIA FOSTER ([id number]) 1960 FDate Time Provider Department11/18/17 KARINA KIM (RN) GYNML During your visit today, we recorded the following information about you:Karina Kim, RN, RN 11/18/2017 11:56 AM SignedPatient 2 [...] of infection to surgical site, UTI sx, dr michael/zenon.Denies pain.Will update medical team for review and adviseMary TREMAYNE Rogers.SARAH 11/18/2017 1:04 PM SignedPatients commonly experience an odor following this procedure.She should continue to monitor and perform jatin care as directed postoperatively.If she experiences fever or is concerned over the weekend, she should call orgo to the ED.We can check with her next week and see if there is improvement.Jenna TREMAYNE Rogers.Abiel Kim, RN, RN 11/18/2017 1:25 PM AddendumPatientcalled and informed that this is a common [...] (Rn) JOHN Barrientos - Fully AssessedReason for Vis it: patient concern [Other]Prescriptions as of 11/18/2017 Sig: ACETAMINOPHEN 500 MG TABLET Take 500mg by mouth every 8 * DOCUSATE SODIUM [...] III) *INVALID FOR* More... Status:Closed by JENNA ROGERS CNP on 11/18/17NoAnna Jaques HospitalANES Darek [id number] POSTHNO ID: [id number]: Delisa Henderson AService: AnesthesiologyAuthor Type: AnesthesiologistType: Anesthesia PostOpFiled: 11/03/2017 9:32 AMNote Text:POST ANESTHESIA EVALUATION NOTESERVICE DATE: 8SERVICE TIME: 929DOB: 1960Vitals: 11/04/1807Temp: 36.7 ?C (98.1 [...] relief and no significant post operative nausea orvomiting. Thepatient has achieved baseline mental status.Further assessment by Anesthesia Service: NoneOther Remarks:SIGNATURE: Delisa Henderson MD PATIENT NAME: Candelaria FosterDATE: November 03, 2017 MRN: [id number]: 9:31 AM PAGER/CONTACT #:[facility] PREOPon [id number] PREOPHNO ID: [id number]: Delisa Henderson AService: AnesthesiologyAuthor Type: AnesthesiologistType: Anesthesia PreOpFiled: 11/03/2017 8:03 AMNote Text:REGIONAL ANESTHESIOLOGY DAY OF SURGERY NOTEPATIENT NAME: Candelaria FosterMRN: [id number]: 1960Procedure(s) (LRB):VULVECTOMY PARTIAL SIMPLE (Left)Surgeon(s):Tamia TorresEstimated body mass index is 30.18 kg/m? as calculated from the following: Height as of 10/19/17: 157.5 cm (5' 2 ). Weight as of 10/19/17: 74.8 kg (165 lb).ASA Class: 2Adequate NPO status: YesAllergies:ALLERGIESAllergen Reactions- Caffeine Intolerance- Darvocet A500 [Prop* Itching-Flexeril [Cyclobenz* Other: See Comments Increase in blood pressure and pulse- Wellbutrin [Bupropi*ItchingAirway Assessment: MP 2; Neck ROM: Limited Flexion and Extension; AirwayEvaluation: No significant abnormalitiesDentition: Teeth intactSymptoms of Sleep Apnea: DeniesMost recent lab results:Hemoglobin 14.4 10/19/2017Hematocrit 43.3 10/19/2017Potassium 4.6 10/19/2017Platelet Count 271 10/19/2017Creatinine 0.74 10/19/2017EKG:normal EKG, normal sinus rhythmVitals: [id number]: 147/79Pulse: 69Resp: 16Temp: 36.7 ?C (98.1 ?F)TempSrc: [...] Surgical ServiceEPIC Chart ReviewACTIVE PROBLEM LISTIntercostal PainMixed HyperlipidemiaAbnormalStress TestVin Iii (Vulvar Intraepithelial Neoplasia Iii)PAST MEDICAL HISTORYDiagnosis Date- Anxiety- Arthritis- Back pain- Depression- Diverticulitis- Diverticulosis- H/O: hysterectomy- Headache- Her niated cervical disc- Smoking- Vulvar cancer (HCC)PAST SURGICAL HISTORYProcedure Laterality Date- CARDIAC CATH 03/26/16 Normal coronary arteries- HYSTERECTOMY HX- PAST SURGICAL HISTORY OF [place] TeethExtraction- PAST SURGICAL HISTORY OF [facility] on scalpFAMILY HISTORYProblem Relation Age of Onset- HeartFather d. @ 42 of [place]- Heart Paternal Grandfather d. @ 45 of [place]- Heart Brother Cardiac Stent Placement- Heart Sister- Thyroid Mother- Cancer Mother SkinSocial History:Social HistorySubstance Use Topics- Smoking status: Current Every Day Smoker Packs/day: 0.50 Types: Cigarettes Start date: 10/17/1981-Smokeless tobacco: Never Used- Alcohol use 42.0 oz/week 28 Cans of Beer (12oz) per weekNo current fa cility-administered medications on file prior to encounter.Current Outpatient Prescriptions on FilePrior to Encounter:Progesterone Micronized, Bulk, 100 % powdtestosterone micronized, bulk, 100 % powddiclofenac, EC, (VOLTAREN) 75 mg EC tablet Take 75 mg by mouth once daily.lidocaine (LIDODERM) 5 %Apply 1 Patch as directed every 24 hours.Inpatient medications reviewed in [facility].I have interviewed and examined the patient. I have reviewed the medicalrecord and/or the pre-anesthesia evaluation, pertinent labs, and testresults.Significant changes in the patient's condition since the History andPhysical, not otherwise documented in primary service progress notes: [facility] contains updated informati on obtained within 48 hours ofSurgery/Procedure.SIGNATURE: Mikla Ferrer CRNA PATIENT NAME: Candelaria FosterDATE: November 03, 2017 : 7:18 AM PAGER/CONTACT #:Attending Note:Batres findingsconfirmed. Patient examined. Discussed with the DEBI andthe patient. Plan as outlined.Ihab Donny Lee 20178:03 AMNBeth Israel Deaconess Hospital HospitalBRIEF OP NOTon [id number] OP NOTHNO ID: [id number]: Jorge Brennan: Gynecology OncologyAuthor Type: PhysicianType: Brief Op NoteFiled: 11/03/2017 8:24 AMNote Text:BRIEF OP NOTELOG ID: [id number]/Procedure Date: 11/03/2017Incision/Procedure Start Time: 8:04 AMIncision Close/Procedure End Time: 8:18 AMSurgeon(s)/Proceduralist(s) and Commercial Stripper(s):Surgeon(s) and Role: * Tamia Torres - Primary * Rah Brennan - Fellow * Clair (Res) Emily - Resident - AssistingProcedure(s): Wide local [...] November 03, 2017 : 8:22 AM PAGER/CONTACT #:[facility] HISTORY PHYSICALon [id number] PHYSICALHNO ID: [id number]: Clair Diaz (Res)Service: Gynecology OncologyAuthor Type: ResidentType: HANDPFiled: 11/03/2017 7:31 AMNote Text:UPDATED HISTORY AND PHYSICAL EXAMINATIONSERVICE DATE: 11/03/2017SERVICE TIME: 7:30 AMPHYSICAL EXAM MUST BE COMPLETED ON ADMISSIONThe History and Physical (completed in the past 30 days) has been reviewedand the patient has been examined. The contents accurately reflect thepatient's condition with the following additions or revisions since theHANDP was complet ed.Examination indicates no changes.This HANDP can be found in the Electronic Medical Record dated 10/20.SIGNATURE: Clair Diaz MD PATIENT NAME: Candelaria FosterDATE: November 03, 2017 :7:30 AM PAGER: [phone] Jaques HospitalNURSING PROGon [id number] PRONO ID: [id number]: Elma Frazier (Rn), RNService: NursingAuthor Type: Registered NurseType:Nursing Progress NoteFiled: 11/03/2017 8:42 AMNote Text: Nursing Progress NotePatient Name: Candelaria HahnMRN: [id number] Location: [facility] OR POOL/[facility] OR POOL 0828 Pt arrived from OR and attached to PACU monitor. Assessmentcompleted see assessment section. No signs of bleeding noted.This note was completed by: Elma Frazier RNHolyoke Medical Center NOon [id number] NOHNO ID: [id number]: Allyn Torreservice: Gynecology OncologyAuthor Type: PhysicianType: Operative ReportFiled: 11/04/2017 1:12 PMNote Text:OPERATIVE/PROCEDURE REPORTLOG ID: [id number]/PROCEDURE DATE: 11/03/2017INCISION/PROCEDURE START TIME: 8:04 AMINCISION CLOSE/PROCEDURE END TIME: 8:18 AMSURGEON(S)/PROCEDURALIST(S) AND METER MAINTENANCE PERSON(S):Surgeon(s) and Role: * Tamia Torres - Primary * AnthJessica - Fellow * Clair Diaz - Resident - AssistingNo Additional StaffSURGERY/PROCEDURE(S):Exam under anaesthesia, vulvar wide local excision?ANESTHESIA: General?SURGERY/PROCEDURE [...] normal sterile fashion and a foleycatheter was inserted.Then the attention was directed to the vulvarlesion. [...] and wastransferred to the recovery room after extubation.?Pre-Op/Pre-Procedure Diagnosis: SILAS-3?Post-Op/Post-Procedure Diagnosis:?Same ??Estimated Blood Loss:?5?mls?Specimens:?Vulvar lesions x 2 ?Implantable Devices:?None?Drains:?None?Complications: None?I performed the procedure with assistance.SIGNATURE: Tamia Torres MD PATIENT NAME: Candelaria FosterDATE: November 04, 2017 : 1:09 PM PAGER/CONTACT #:[facility] [phone] CARE HOSPITAL ID: [id number]: Rupesh (Production Clerk), Tameraice: (none)Author Type: TechnicianType:Plan of CareFiled: 11/04/2017 9:27 AMNote Text:PHARMACY BEDSIDE DELIVERY SERVICEPatient Name: Casie FosterMRN: [id number] marked outpatient medications were filled and deliveredMedication [...] Powdtestosterone micronized (bulk) 100 % PowdTYLENOL EXTRA [id number] mg tabletGeneric drug: acetaminophenYou might also be taking other medications not listed above. If you havequestions about any of your other medications, talk to the person whoprescribed them oryour Primary Care Provider.Iveth Goddard (Wavestream)PAGER: [phone] 2017 9:27 AMNormal [facility] ID: [id number]: Rupesh (Wavestream), Dorinda: (none)Author Type: TechnicianType:Plan of CareFiled: 11/03/2017 10:31 AMNote Text:Pharmacy Discharge Medication Service:This patient has elected to receive their discharge prescriptions throughthe [facility] Bed[facility]. Theprescriptions are currently being processed. A follow-up note will beentered once the prescriptions have been filled and delivered to thepatient. Please contact me with any questions or updates to the patient'sdischarge medications.Iveth Goddard (Wavestream)DCT Contact Info: [id number] Anne's Hospital ID: [id number]: Rupesh (Wavestream)Dorinda: (none)Author Type: TechnicianType:Plan of CareFiled: 11/03/2017 10:31 AMNote Text:DIET KITCHEN COOK BEDSIDE DELIVERY SURVEY1. Patient to use [facility] Bedside Delivery - YES2. If fax, patient would like us to fax prescriptions to [facility]acy [facility]choice a. Pharmacy: b. Location: c. Phone:3. Insurance card on file - YES4. Credit card for payment - N/ANoal [facility] EDon [phone] [facility] ID: [id number]: Kamla Zambrano (Rn), RNService: NursingAuthor Type: Registered NurseType: Patient EducationFiled: 11/03/2017 6:43 AMNote Text:PRE OP LEARNING ASSESSMENTPROCEDURE/SURGERY: SURGERY:READINESS TO LEARNCOGNITIVE ABILITY: Alert and orientedMOTIVATION TO LEARN: EagerFAMILY SUPPORT: Unable to assess - Family not presentPATIENT LEARNS BEST BY: Individual InstructionFACTORS AFFECTING LEARNING: NonePHYSICAL LIMITATIONS AFFECTING LEARNING: NoneElectronically Signed By: Kamla Zambrano RN In Department: [facility] OPERATING ROOMNormal The [facility] CenterURGICAL PATHOLOGYon [id number] PATHOLOGYSpecimen originated from The [facility] Centerpecimen #: [id number] Physician: TAMIA TORRES MD FINA L DIAGNOSIS1. Right peroneal lesion, biopsy (A) - Benign squamous epithelium, negativefor dysplasia.- Chronic spongiotic dermatitis. 2. Left periclitoral lesion, biopsy (B) - Acute and chronic inflammationwith focal ulceration (see comment). BY/glbebe 11/07/2017 COMMENTImmunostaining on B3 shows that epithelial cells adjacent to ulcer havenormal p53 expression pattern and are negative for p16, supporting theabove diagnosis. Arnoldo Melgar M.D. Ph.D.(Electronic Signature) SPECIMEN SUBMITTEDA: RIGHT PERINEAL LESION B: LEFT JATIN-CLITORAL LESION CLINICAL DATAVULVAR INTRAEPITHELIAL NEOPLASIA IIIGROSS DESCRIPTIONA. Received in formalin designated right perineal lesion is an orientedellipse of skin that measures 1.0 x 0.4 x 0.1 cm. The skin surface ispink-carrillo and wrinkled. There is a suture that designates 12 o'clock. Thedeep margin is inked black. Thespecimen is inked as follows: 12-6 o'clock- blue; [...] to 6 o'clock to reveal carrillo cut surfaces.The specimen is entirelysubmitted as follows: B1 12 o'clock, B2 6 o'clock tip; B3 and B4 remainingskin submitted in sequential order from 12 o'clock to 6 o'clock.WE/db 11/03/2017 Gross examination performed at [facility], [address] [place] [address] of Report: 11/08/2017Date of Procedure: 11/03/2017Date of Receipt: 11/03/2017Submitted by: TAMIA TORRES MDLocation: FVORDiagnostic interpretation performed at [facility], [address] [place] [address].[facility] Comment on above:Performed By: #### PATHS ####Vbzqhebp74598 [place], [place] [address]NURSING PROGon [id number] PROBARRETT ID: [id number]: Bambi (Rn) ALLYSON Lyonervice: General SurgeryAuthor Type: Registered NurseType: Nursing Progress NoteFiled: 10/26/2017 4:26 PMNote Text:PACC Nurse Progress NoteHistory ANDPhysical:PACC Visit Date: 3-87-51Xanbudqm HANDP Date: N/AED visit Date: N/AOutside HANDP Scanned Date: N/ALabs Within Last 6 Months:CBC: Date 10-19-17BMP/CMP: Date 8-35-16Obmixay Within Last 12 Months: N/ACardiac Testing:EKG in last 12 Months: Yes: Date: 10-19-17, Comment: Confirmed in EPIC.Last Menstrual Period:LMP Date: UnknownPostmenopausal >1yr: Yes,S/P Hysterectomy: YesBMI Percentile (PEDS):N/ARisk Assessment:N/AAnesthesia Review:N/ANarrative:N/APre-op Considerations:N/AChart Check:Juventino Lyon RNMay 2017 4:25 PMNFree Hospital for Women [id number] Patient:Candelaria Foster LMRN: Height:5' 2 (1.575 m)Weight:165 lb (74.844 kg)Outpatient Medications asof 11/03/17:acetaminophen (TYLENOL EXTRA STRENGTH) 500 mg tabletProgesterone Micronized, Bulk, 100 %powdtestosterone micronized, bulk, 100 % powddiclofenac, EC, (VOLTAREN) 75 mg EC tabletlidocaine (LIDODERM) 5 %Admission/Clinic Administered Medications as of 11/03/17:lidocaine 10 mg/mL (1 %) 1-2 mg injection (XYLOCAINE)lactated ringers infusionProblem List:Intercostal pain [R07.82]Mixed hyperlipidemia [E78.2]Abnormal stress test [R94.39]SILAS III (vulvar intraepithelial neoplasia III) [D07.1]Allergies:CaffeineDarvocet A500 [Propoxyphene N-Acetaminophen]Flexeril [Cyclobenzaprine Hcl]Wellbutrin [Bu propion Hcl]Date Verified: 11/03/17Lab ValuesLab Value Units Date High LowPOTA* 4.6 mmol/L 10/19/2017 5.1 3.7HEMA* 43.3 % 10/19/2017 46.0 36.0Progress Notes (MOLDER LABELS [facility]):Aleena Cuenca (Rn), RN 10/31/2017 3:20 PM [...] clean and dry.Advised I would discuss with CLINICAL UNIT COORDINATOR and call her backShe also states that at the same time,she developed an irritated vein on herclitoris. She said this happens off and on. She says it's sensitive but notpainful and that there is a slight odor.Denies bleeding, drainage, fever/chills.She stated she was going to try a sitz bath but wanted to know if there wasanything else she should do. [facility] to adviseVAleena prasad (Rn), RN 11/01/2017 4:33 PM SignedInformed pt of [facility] message to go ahead and use prep H but to call if odorcontinuesShe states hemorrhoids are improvingShe is unsure of vein on clitoris. Says it's still red but maybe slightlyimprovedShe will call tomorrow morning with update to see if she should be evaluatedbefore surgeryKarina Kim (Rn), RN 11/02/2017 10:17 AM SignedPatient called office, stating hemorrhoids getting better, slight odor from periarea, clitoris area swollen and wants to know if she can use cortizone creamthere.Will update Galina Cohen ([facility]) 11/02/2017 3:08 PM SignedWould not advise any creams in anticipation of procedure for tomorrowThNano Bentley (Rn), RN 11/02/2017 3:49 PM SignedLeft vm for patient in regards to message below.Progress Notes ([facility]OL[facility] LABELS [facility]):Aleena Cuenca (Rn), RN 10/26/2017 1:57 PM SignedLeft vm for pt to call office to discuss pre-op instructions prior to surgerywith Dr. Torres on 11/03/17Nimco Tong RN 10/27/2017 4:00 PM SignedPatient returning call for pre op instructions.Procedure: VULVECTOMY PARTIAL SIMPLEPhysician: Tamia TorresLocation: [facility]: [phone] AND Time: 11/03/2017MEDICAL CLEARANCE: No CARDIAC CLEARANCE: NoPRE ADMISSION TESTIN10/19/17 AT: Jose Alejandro [facility]): [phone] FOLLOWING WAS EVALUATED Motivation To Learn: Interested Family/Significant Other Support: Unable to assess - Family notpresent Cognitive Ability: Alert and orientedPatient Learns Best By: Individual InstructionWritten Instruction - Hand-outsVerbal InstructionThe Following Influencing Factors Were Barriers To This Education Session: NoneThe Following Physical Limitations Were Barriers To This Education Session:NoneInstruction Provided To: PatientMEDICATION TO AVOID 7-14 DAYS PRIOR TO SURGERY: Advill Celebrex MotrinAggrenox Clinoril Naprosyn(naproxen)Agrylin NSAIDS Pepto-BismolAleve Ecotrin PersantineAlka-SeltzerExcedrin PlaquenilAnacin Heparin PlavixAscriptin Herbals PletalAspergum Ibuprofen TiclidBayer Indocin TrentalBextra Midol VanquishBufferin Gingko Biloba Vitamin E (MVI)MEDICATIONS YOU MAY SUBSTITUTEAn acin 3 Fioricet * Tylenol with codeine *Darvocet [...] with patient/family:ACTIVITY - No heavy lifting (>5-10 lbs ), no pushing/pulling, OK to climb stairsDRIVING - [...] - IV pain medication after surgery, IV INFORMATION ASSURANCE SPECIALIST if ordered by MD,discharged home with a prescription for PO pain medication, pain management after surgery, side effects of pain medication (including constipation,dizziness, drowsiness, and medication interactions).DVT PROPHYLAXIS - Early ambulation, SCDs, injectable anticoagulants (heparin,lovenox, etc)RESPIRATORY - Incentive spirometer, coughing/deep breathing exercises,ambulation.RETURN TO WORK - As directed by physician, please send any [place] papers tophysician's traveling secretary.SYMPTOMS TO NOTIFY MD - Fever, chills, nausea, vomiting, increased or severepain, heavy vaginal bleeding, foulsmelling vaginal drainage, pain or swellingin extremities.URGENT SYMPTOMS - Call 911 or go to ER ifany shortness of breath, difficultybreathing, or chest pain.HOW TO CONTACT PHYSICIAN - Physician's office phone number given to patient, ifafter hours patient instructed to call soyfreeze operator and ask for the doctor fashion artist.Patient and family have phone number to call 24 hours/day.Patient Evaluation: Verbalizes understandingPatient and/or family express understanding of upcoming surgery and theoperative process. Questions answered.Follow Up Plan: Follow up as neededSupplemental Material Given:Pre-operative teaching packet provided to the patient:INPATIENT/OUTPATIENT printed instructions; Post-operative instruction sheet,bowel prep instruction sheetFor questions contact: Tamia Torres's office at [phone] By Nimco Garza [facility] Vital Signs Date TimeVital SignValuePerforming HleigwzfdIpgrzzod14-76-2702 15:55-0400Body .48 cmBenjamin Ball DO Work Phone: [facility]10-22-2025 15:55-0400 Body mass index (BMI) [Ratio]28.5 kg/n9Ccbdrulw Ball DO Work Phone: 1(419)[address] [place], [place] [address]2010-22-2025 15:55-0400 Body .93 kgBenjamin Ball DO Work Phone: 1(419)[address] [place], [place] [address]2010-22-2025 15:55-0400 Diastolic blood iifpnnqm31 mm[Hg]Clint Ball DO Work Phone: 1(419)[address] [place], [place] [address]2010-22-2025 15:55-0400 Heart rate84 /minBenjamin Ball DO Work Phone: 1(419)[address] [place], [place] [address]2010-22-2025 15:55-0400 Respiratory rate12 /minBenjamin Ball DO Work Phone: 1(419)[address] [place], [place] [address]2010-22-2025 15:55-0400 Systolic blood yuytzqvx626 mm[Hg]Clint Ball DO Work Phone: 1(419)[address] [place], [place] [address]2006-26-2025 12:04-0400 Body etbkco125.48 cmBenjamin Ball DO Work Phone: 1(419)[address] [place], [place] [address]2006-26-2025 12:04-0400 Body mass index (BMI) [Ratio]28.9 kg/p7Jwxlwech Ball DO Work Phone: 1(419)[address] [place], [place] [address]2006-26-2025 12:04-0400 Body lbpyxm73.72 kgBenjamin Ball DO Work Phone: 1(419)[address] [place], [place] [address]2006-26-2025 12:04-0400 Diastolic blood ersamcdf98 mm[Hg]Clint Ball DO Work Phone: 1(419)[address] [place], [place] [address]2006-26-2025 12:04-0400 Heart rate77 /minBenjamin Ball DO Work Phone: 1(419)[address] [place], [place] [address]2006-26-2025 12:04-0400 Respiratory rate12 /minBenjamin Ball DO Work Phone: 1(419)[address] [place], [place] [address]2006-26-2025 12:04-0400 Systolic blood hcklbzun291 mm[Hg]Clint Ball DO Work Phone: [facility]01-16-2025 09:46-0500 Body mass index (BMI) [Ratio]26.78 kg/r2Wrljb Ludivina DO Work Phone: [facility] MedicineOienqicjci39-23-7736 09:46-0500Body tfvyuc46.76 kgCorey Ludivina DO Work Phone: [facility] MedicineNrsnntudya46-16-7998 09:46-0500Diastolic blood dwrstegx28 mm[Hg]Adrian Ludivina DO Work Phone: [facility] MedicineZsjjvpyuox56-02-7531 09:46-0500Systolic blood uqjiqvwd986 mm[Hg]Adrian Ludivina DO Work Phone: [facility] MedicineKkfejsulbq59-74-8090 10:44-0500Body mass index (BMI) [Ratio]26.43 kg/m2Nimco Scotty PA Work Phone: [facility] MedicineVhklkbqbhz05-66-1453 10:44-0500Body .85 kgNimco Scotty LIANG Work Phone: [facility] MedicineFaaumhhbdk77-99-3062 10:44-0500Diastolic blood wjqqrmly19 mm[Hg]Nimco LIANG Work Phone: [facility] MedicineExgemngqfp24-66-5339 10:44-0500Systolic blood mm[Hg]Nimco LIANG Work Phone: [facility] MedicineLtnkjordkc25-17-4156 11:27-0400Body upzjbw157.48 cmAcmc Healthcare System06-21-2024 11:27-0400Body mass index (BMI) [Ratio]27.3 kg/e6AqnkdxeqvAcmc Healthcare System06-21-2024 11:27-0400Body fubtsk59.75 kgAcmc Healthcare System06-21-2024 11:27-0400Diastolic blood vulzmfvp62 mm[Hg][facility]06-21-2024 11:27-0400 Heart rate75 /minAcmc Healthcare System06-21-2024 11:27-0400 Respiratory rate12 /minAcmc Healthcare System06-21-2024 11:27-0400 Systolic blood wjgfuftz900 mm[Hg][facility]06-20-2023 11:00-0400Body pcvwoi897.21 cmBensheilamin Ball Other [employer] Other 06-20-2023 11:00-0400Body mass index (BMI) [Ratio] 28.25 kg/y8Bckqdlwj Ball Other [employer] Other 06-20-2023 11:00-0400Body afqrui25.95 kgBensheilamin Ball Other [employer] Other 06-20-2023 11:00-0400Diastolic blood coxwefas13 mm[Hg] Clint Ball Other [employer] Other 06-20-2023 11:00-0400Respiratory rate12 /minBenhamilton Ball Other [employer] Other 06-20-2023 11:00-0400Systolic blood aevdkswz316 mm[Hg] Clint Ball Other [employer] Other Encounters Encounter DateEncounter TypeCare ProviderFacilityStart: 04-17-2025 End: 07-25-5973bplvxezfhqFuvrnozg Ball DO Work Phone: [facility] ClinicStart: 04-17-2025 End: 62-08-3670Cbassir encounter procedureBenjamin Ball DO-[facility] Work Phone: Start: 12-20-2024 End: 86-67-0512xsqcddpnyvLrcktzpt Ball DO Work Phone: [facility] Work Phone: Start: 12-20-2024 End: 66-34-7891Vaygozj encounter procedureBepatrica Ann [facility] Work Phone: Start: 12-20-2024 End: 43-95-9860Ejpwkus encounter statusClint Ann [facility] Hospitaltart: 11-06-2024 End: 62-17-4605Mzeazk flowsheetNatalie A Felter RECREATIONAL THERAPIST-CLINICAL UNIT COORDINATOR Work Phone: noms SWS DERMStart: 11-06-2024 End: 49-22-6123Zvznkn flowsheetNatalie A Felter RECREATIONAL THERAPIST-CLINICAL UNIT COORDINATOR Work Phone: noms SWS DERMStart: 11-06-2024 End: 05-82-5037wqdlbuqdraHFDFEWK A FELTERNot AvailableStart: 11-06-2024 End: 02-02-8900Rzgjdh outpatient visit 15 minutesNatalie A Felter RECREATIONAL THERAPIST-CLINICAL UNIT COORDINATOR Work Phone: noms SWS DERMComment on above:Seborrheic keratosis (Primary Dx); Melanocytic nevus of trunk; Melanocytic nevus of scalp; Lentigines; Thompson angioma; History of basal cell carcinomaStart: 69-20-5344Vzf-patient / Non-visitNatC[facility] Clinic [facility] Work Phone: Start: 07-12-2024 End: 11-44-6488Uaclwd flowsheetCorey Ludivina DO Work Phone: noms BCP OBStart: 07-12-2024 End: 27-96-6257Jfwhqy flowsheetCorey Ludivina DO Work Phone: noms BCP OBStart: 07-12-2024 End: 23-05-3378lcwqjsgmcvFBNRF FAZIONot AvailableStart: 07-12-2024 End: 55-04-6859Tgqopj outpatient visit 15 minutesCorey Ludivina DO Work Phone: noms BCP OBComment on above:Osteopenia, unspecified locationStart: 06-15-2024 End: 40-22-4945Tclccpzdm Result EncounterNimco LIANG Work Phone: noms External Department UnsolicitedStart: 06-15-2024 End: 96-83-2453Tllvdacol Result EncounterAmy Scotty LIANG Work Phone: noms External Department UnsolicitedStart: 06-14-2024 End: 92-02-4018Ecdljt flowsPaulina Alejandre DPM Work Phone: noms [facility] PODIATRYStart: 06-14-2024 End: 50-27-7097Tixbst flowsheetChay Alejandre DPM Work Phone: noms [facility] PODIATRYStart: 06-14-2024 End: 64-85-7242fhwywcaiohFEEOBWWSY H SMITHNot AvailableStart: 06-14-2024 End: 03-20-8985Bhctgz outpatient visit 15 minutesCasssantos Alejandre DPM Work Phone: noms [facility] PODIATRYComment on above:Neuroma digital nerve (Primary Dx); Other specified peripheral vascular diseases (CMS/HCC); Pain in both feetStart: 05-21-2024 End: 97-25-0937Omctgf flowsheetNimco LIANG Work Phone: noms BCP OBStart: 05-21-2024 End: 58-37-3755Atdlcv flowsheetNimco LIANG Work Phone: noms BCP OBStart: 05-21-2024 End: 23-85-7287Wzvhhkbxq Result EncounterNimco LIANG Work Phone: noms External Department UnsolicitedStart: 05-21-2024 End: 43-88-4845Xfsgtzl encounter procedureNimco LIANG Work Phone: noms HealthcareStart: 05-21-2024 End: 24-14-6116Dyhdwkgj preventive med est patient 40-64yrsAmy Scotty LIANG Work Phone: noms [facility] OBComment on above:Well woman exam with routine gynecological exam; H/O: hysterectomy; Breast cancer screening by mammogram; Osteoporosis, post-menopausal (CMS/HCC); Urinary tract infection without hematuria, site unspecifiedStart: 05-21-2024 End: 24-22-5419pxutyeixguJCG RAMEYNot AvailableStart: 03-06-2024 End: 46-05-3348Oxylrl flowsPaulina Alejandre DPM Work Phone: noms [facility] PODIATRYStart: 03-06-2024 End: 18-37-3717Okbuio flowsPaulina Alejandre DPM Work Phone: noms [facility]ODIATRYStart: 03-06-2024 End: 52-97-5543Cuqrfu outpatient visit 15 minutesCasapna Alejandre DPM Work Phone: noms [facility] PODIATRYComment on above:Neuroma digital nerve (Primary Dx); Other specified peripheral vascular diseases (CMS/HCC); Pain in both feetStart: 03-06-2024 End: 86-82-6450cjnskzuppkHMWQUAOAA H SMITHNot AvailableStart: 01-04-2024 End: 36-44-2624ccznampfvzPXFYRXOBX H SMITHNot AvailableStart: 12-16-2023 End: 40-72-7519ucfgievjpcWehmcxrtqDayton Children's Hospital Work Phone: Start: 12-16-2023 End: 56-57-5087Glpjqiwjv for general adult medical examination without abnormal findingsMartin Memorial Hospitaltart: 12-16-2023 End: 65-39-9260Ocmwcpx encounter procedureFormerly [facility], [facility] Work Phone: Start: 12-07-2023 End: 46-74-8790rrytkchvcsYWHDEEWEZ H SMITHNot AvailableStart: 01-21-2023 End: 91-21-4977xgufljncptPbudccvw Ball Other [facility] [employer] Other Start: 30-56-6820Qdgcbmxrl encounterBepatrica AnnOhioHealth Nelsonville Health Centertart: 12-15-2022 End: 43-32-1969byizeazxhqZjaukmpw Ball Other noC[employer] Other Start: 36-44-7145Gjstsqzqb encounterBeptarica Ann Medical ClinicStart: 12-14-2022 End: 32-75-7403cenpeekzicKywxbssy Ball Other [employer] Other Start: 76-67-8443Kdknrnriz for general adult medical examination without abnormal findingsBepatrica Ann Medical ClinicStart: 19-07-2871Revdejai preventive med est patient 40-64yrsBepatrica Ann Medical ClinicStart: 07-16-2022 End: 82-93-7532fleuismjvzVV SHARMAINE CHAUDHARI .[facility] [employer] Other Start: 64-79-3168Fwedwrtuz encounterClint Ash Referral CoordinatorStart: 06-27-2022 End: 09-27-8778nrvrvbpypbWY CLINT BALLFacility:N2Oqnon: 06-23-2022 End: 39-25-8803kimbjnsazwWhcrdaw Velvet DittyFacility:[facility] Memorial Hospitaltart: 06-22-2022 End: 46-98-6593kngbizadsoOtewybr Ditty Other noC[employer] Other Start: 31-48-1956Rdgaohfrn encounterCameron MayrattyTIERRAG GastroenterologyStart: 06-16-2022 End: 96-65-7024vnzyakedhcNZ CLINT BALLFacility:N5Gziin: 06-08-2022 End: 12-10-7891dtmcbwpzuuHqmrxd Felter Other [employer] Other Start: 56-01-5018Fidgxn outpatient new 45 minutes [facility] Bone CreekStart: 58-13-9309Gyairyhmwrxhy examination normalClint Ann Other [employer] Other Start: 05-27-2022 End: 56-66-5142ycsvxjwvniJM CLINT ANNFacility:K1Iscln: 05-14-2022 End: 51-16-9744qlqiwwgyxqIZ CLINT MARISSAFacility:V1Paeif: 05-11-2022 End: 02-39-3711dmgzkrcsobPT CLINT ANNFacility:F8Msxpq: 04-23-2022 End: 77-35-9935lfucrfdfkhYN SHARAMINE CHAUDHARI .Facility:G1Kfdop: 02-22-2022 End: 28-91-9023whncxdmooqMashywl Diladarius Other [place] [employer] Other Start: 09-35-7504Ejbosbeec encounterCamasia HopperyFPG Referral CoordinatorStart: 01-16-2022 End: 70-58-6978evqihdougcPI GAMA MIFacility:O6Yanmt: 01-06-2022 End: 64-00-3426ixgkawlutvEO ELMER VANEGASFacility:J1Cxhzf: 08-51-0837Pmhzudxeb for general adult medical examination without abnormal findingsDR CLINT ANN [facility] HospitalStart: 12-08-2021 End: 85-21-1098oalpxspoekQR CLINT ANNFacility:T6Xjbtg: 12-08-2021 End: 72-77-1607Dboctluig for general adult medical examination without abnormal findingsDR CLINT ANNFacility:N8Ikrts: 58-55-3027Jcydt health examination Clint Ann Other [employer] Other Start: 2021 End: 74-69-3021kpdhwysmvdAK GAMA MIFacility:O0Tsnge: 09-30-2021 End: 50-89-0166frkgvxkvboVM CLINT ANNFacility:O2Fbskn: 11-03-2017 End: 01-31-8219ShgucpwyaqPHBHELMountain West Medical Center Procedures DateProcedureProcedure DetailPerforming ClinicianStart: 98-65-4624GI TOMOSYNTHESIS SCREENING BINimco LIANG Work Phone: Start: 94-23-7392XU DEXA AXIAL SKELETONNimco LIANG Work Phone: Start: 81-24-3751Wpkop dip stick/tablet rgnt non-auto w/o micrscpAivan LIANG Work Phone: Start: 84-90-0199JEN,APTIMA HPV,AGE GDLNNimco LIANG Work Phone: Start: 78-59-7850Zfch cerv/vag auto thin layer prep mnl screenCorey Ludivina DO Work Phone: Start: 22-41-8151Jljtxgptp for malignant neoplasm of breastBenhamilton Ann Other Start: 30-91-8083Mfniowl examination of patient Clint Ann Other Start: 84-43-8957Lpnccyymersz screeningBenhamilton Ann Other Depression screeningBenhamilton Ann Other H/O: hysterectomyH/O: hysterectomyNimco LIANG Work Phone: Screening for malignant neoplasm of breastBenhamilton Ann Other Screening for osteoporosisBenhamilton Ann Other Plan of Treatment DateCare ActivityDetailAuthorStart: 11-05-2025 End: 63-22-0078Qtjkivk encounter procedureNOMS SWS DERMStart: 05-28-2025 End: 56-64-8419Gmbvaex encounter procedureNOMS BCP OBStart: 11-06-2024 End: 49-45-1124Gphpmxn encounter /13/2025 11:35 AM EDT Office Visit [facility] [address] [place] [id number] Mikal Lemus APRN-CLINICAL UNIT COORDINATOR [address] [place] [address] NOMS SWS DERMStart: 07-19-2024 End: 63-92-5994Deqkzsw encounter eubzxcmvl16/23/2025 9:45 AM EST Office Visit [facility] [address] [place] [phone] Chay Alejandre, DPM [address] [place] [address] [facility]ODIATRYStart: 06-14-2024 End: 39-99-2808Zwpkisd encounter dvgpbcjep78/19/2024 10:45 AM EST Office Visit [facility] [address] [place] [address] Chay Alejandre, DPM [address] [place] [address] [facility]ATRYStart: 05-29-2024 End: 03-55-3404Fnmskcz encounter vqfmxovtt26/03/2024 10:45 AM EST Office Visit [facility] [address] [place] [phone] Chay Alejandre, DPM [address] [place] [address] [facility]ODIATRYStart: 05-21-2024 End: 76-99-0070EZN Skeletal system Views for bone densityDEXA bone density Imaging Routine Osteoporosis, post-menopausal ([facility]/HCC) Expected: 05/21/2024 (Approximate), Expires: 05/21/2025NOIN HealthcareComment on above:Expected: 05/21/2024 (Approximate), Expires: 05/21/2025Start: 05-21-2024 End: 53-19-0479HN Breast - bilateral ScreeningBilateral screening mammogram Imaging Routine Breast cancer screening by mammogram Expected: 05/21/2024 (Approximate), Expires: 07/21/2025[facility] Work Phone: comment on above:Expected: 05/21/2024 (Approximate), Expires: 07/21/2025Start: 05-21-2024 End: 85-11-2423Nwvkdmn encounter procedureNOMS BCP OBComment on above:Arrived Start: 04-17-2024 End: 31-59-2650Vigatcl encounter eipkoifxe45/22/2024 9:45 AM EDT Office Visit [facility] [address] [place] [address] Chay Alejandre, DPM [address] [place] [address] [facility]S SWS PODIATRYStart: 03-06-2024 End: 55-14-7460Waorjpb encounter aurjsloas28/10/2024 8:45 AM EDT Office Visit [facility] [address] [place] [address] Chay Alejandre, DPM [address] [place] [address] ArrivedNOMS SWS PODIATRYComment on above:Arrived Comprehensive metabolic 2000 panel - Serum or PlasmaAcmc Healthcare SystemPatient EducationLow back pain in adultsUniversity Hospitals Lake [facility] Medical Center Work Phone: THIN PREP TIS PAP AND HR HPV DNATHIN PREP TIS PAP AND HR HPV DNA Pathology and Cytology Routine Well woman exam with routine gynecol ogical exam H/O: hysterectomy Ordered: 05/21/2024NOMS HealthcareComment on above:Ordered: 05/21/2024XR Hip - left 2 [facility] XR Lumbar spine [facility] Immunizations Immunization DateImmunizationNotesCare QrbaeuckLqdjxoch17-12-4898UBWVC-21 Vaccine Valerio - Documentation Purposes OnlyBenhamilton Ann Other [facility] Payers DatePayer CategoryPayerPolicy ID2025MedicareMEDICARE Member Subscriber Plan / Payer (Effective 2024-Present) Name: Candelaria Foster Member ID: [id number] Relation to Subscriber: Self Name: Candelaria Foster Subscriber ID: [id number] Payer ID: STATE Group ID: Not on file Type: Medicare Address: [place] [id number] [id number] [id number] 2024Private Health [id number] [employer] [facility] [employer] [id number] 2023-[place] [id number] [id number] [id number] 2..1.031960.3.57[id number] 2..1.708425.3.57[id number] 2..1.452808.3.57[id number] 2..1.982094.3.57[id number] 2..1.606623.3.57[id number] 2..1.610804.3.57[id number] 2.16.840.1.357950.3.57[id number] 2..840.1.221514.3.57[id number] 2..840.1.126212.3.57[id number] 2.840.1.553910.3.57[id number] 2.840.1.803003.3.579.2.56786-83-8771Xwyvpzw9357732 2.840.1.060467.3.579.2.07707-29-8442Nfahzua9801640 2.840.1.108745.3.579.2.78642-75-0505Yajzldw7169505 2.840.1.099062.3.579.2.424609-43-9606Mogcidp0564660 2.0.1.293511.3.579.2.046134-91-4324Nujgaww8529593 2.0.1.366125.3.579.2.971376-40-3433Cosrsnc8311780 2.0.1.224770.3.579.2.936988-95-5270Igrtgna0903007 2.840.1.402099.3.579.2.434910-10-1557Ippgvps2042540 2.0.1.267318.3.579.2.764443-44-4124Aqwkazf6484261 2.840.1.911587.3.579.2.671403-91-2264Cbhwtxd706305410 2.840.1.808384.19 70-76-5203Pagfycr67662636Cmtgqnl Health [id number] ixi001d9-q798-2966-651l-8091v18t0u36Oftg-rvnAvit Pay [id number] Social History DateTypeDetailFacilitySex Assigned At BirthFort Bidwell [employer] Other Start: 47-56-4491Xjlsjpl smoking status NHISSmoker (finding)[facility] Hospitaltart: [id number] Assigned At FemaleMartin Memorial Hospitaltart: 69-48-3993Ounngnh smoking status NHISTobacco smoking consumption unknownLOGAN REGIONAL [facility] HealthcareStart: 03-06-2024 End: 62-09-8055Txcntfvxl beverage intakeLifetime non-drinker (finding)[facility] HealthcareStart: 57-63-5902Ezhbkqf CommentCurrent smoker frequency unknownLOGAN REGIONAL HOSPITAL HealthcareStart: 90-69-9513Znuvzkc Commentcaffeine: noNOMS HealthcareStart: 36-04-5318Tny assigned at birthNot on fileLOGAN REGIONAL HOSPITAL HealthcareStart: 12-20-2024 Tobacco smoking status NHISSmokes tobacco daily (finding)[facility] HospitalexFemale (finding)[facility] Hospitaltart: 17-87-4400OsmKskzlzHPFC Healthcare Clinical Notes 02-22-2022 to 04-17-2025 Note Date & [id number] Evaluation note* Diagnosis Onset Date Resolution Status Admit Date Abdominal pain acuteOctober 2024 3:44pmChronic bronchitisacuteOctober 2024 3:44pm ELADIO (generalized anxiety disorder)acuteOctober 2024 3:44pm HypercholesterolemiaacuteOctober 2024 3:44pmHypertensionacuteOctober 2024 3:44pmLeft hip painacuteOctober 2024 3:44pmLow back painacuteOctober 2024 3:44pmNicotine addictionacuteOctober 2024 3:44pmOSA (obstructive sleep apnea)acuteOctober 2024 3:44pmPeripheral artery disease acuteOctober 2024 3:44pm [facility] Work Phone: 1(492) 151-848706-26-2025 Evaluation note* Diagnosis Onset Date Resolution Status Admit Date Chronic bronchitis acuteJune 2024 11:45amGAD (generalized anxiety disorder)acuteJune 2024 11:45amHypercholesterolemiaacuteJune 2024 11:45amHypertensionacute Dalia 2024 11:45amNicotine addictionacuteJune 2024 11:45amOSA (obstructive sleep apnea)acuteJune 2024 11:45amPeripheral artery disease acuteJune 2024 11:45amScreening mammogram for breast canceracuteJune 2024 11:45amChronic obstructive pulmonary disease with (acute) lower respiratory infectionnoneactiveJune 2024 11:45amWelcome to Medicare preventive visitnoneactiveJune 2024 11:45am [facility] Work Phone: 1(981) 992-181905-13-2025 History of Present illness Narrative* Mikal Lemus, RECREATIONAL THERAPIST-CLINICAL UNIT COORDINATOR - 11/06/2024 11:35 AM EDT Skin Check Location: Patient requests a full body skin examination Dermatologic history: history of Actinic Keratosis, history of Basal Cell Carcinoma Last visit: 1 year ago All pertinent medical history, medications, and allergies were reviewed. General Exam: alert , oriented to person, place, and time , normal affect, well appearing Unaccompanied Scalp, Examined , exam limited by hair Right leg Examined Head, Face Examined Left leg Examined Neck Examined Right foot Examined Chest Examined Left foot Examined Back Examined Buttocks Examined , limited by underwear Abdomen Examined Digits,nails: Examined Right arm Examined Left arm Examined Hands Examined Skin Exam 1. SEBORRHEIC KERATOSIS Generalized Stuck on verrucous, variably pigmented papules and plaques. Patient was counseled regarding these benign growths. Removal is normally not necessary, but they may be removed if they are symptomatic or for cosmetic reasons. 2. MELANOCYTIC NEVUS OF TRUNK Generalized Scattered benign appearing, regular brown to light brown melanocytic papules and macules with similar morphology Counseled regarding these benign growths. Rarely, a nevus can develop into malignant melanoma, so any changing nevi should be promptly re-evaluated. 3. MELANOCYTIC NEVUS OF SCALP Right Parietal Scalp Scattered benign appearing, regular brown to light brown melanocytic papules and macules with similar morphology Counseled regarding these benign growths. Rarely, a nevus can develop into malignant melanoma, so any changing nevi should be promptly re-evaluated. 4. LENTIGINES Generalized Scattered carrillo macules in sun-exposed areas. The patient was informed that lentigines are benign pigmented lesions that occur on sun-exposed andsun-damaged skin. No treatment is necessary. Recommended regular use of broad spectrum sunscreen SPF 30 or higher 5. THOMPSON ANGIOMA Trunk Scattered thompson-red papule(s). The patient was informed that angiomas are benign growths on the the skin. No treatment is necessary. 6. HISTORY OF BASAL CELL CARCINOMA Forehead No evidence of recurrence at BCC scar. The patient was counseled that scars from excisional sites of nonmelanoma skin cancers should be monitored closely for recurrence. The patient was instructed to contact the office for any new, changing, or symptomatic moles. The patient was also instructed to contact the office for any new lesions that develop within or around the previous surgery scar. Next Visit: 1 year, skin check documented in this encounterFreeman Orthopaedics & Sports [id number] History of Present illness Narrative* AZUL Zapata - 07/12/2024 9:20 AM EST Reason for Appointment: Patient ID: Candelaria Foster is a 63 y.o. female who presents for Discuss Dexa Scan Patient presents today for Acute Visit. MEDICATIONS Current Outpatient Medications Medication Instructions aspirin 81 mg, Oral, Daily RT atorvastatin (LIPITOR) 10 mg, Oral, Daily Incruse Ellipta 62.5 mcg, Daily lisinopril 5 mg, Oral, Daily ALLERGIES [...] (See Comments) Other Reaction(s): Itching Acetaminophen Itching Zupan-Bdwyphe-Rhmuhf Other Other Reaction(s): Unknown Reaction Caffeine Anxiety [...] with bilateral sciatica Arrhythmia Arthritis Atherosclerosis of [place] artery of both lower extremities with intermittent [...] with bilateral sciatica Arrhythmia Arthritis Atherosclerosis of [place] artery of both lower extremities with intermittent [...] 2021 EGD 05/2019 OTHER SURGICAL HISTORY 02/2016 [facility] OTHER SURGICAL HISTORY 11/2017 Bx Periclitor, peroneal [...] Objective: Physical Exam Constitutional: Appearance: Normal appearance. She is normal weight. HENT: Head: Normocephalic. Cardiovascular: Rate and Rhythm: Normal rate. Pulses: Normal pulses. Pulmonary: Effort: Pulmonary effort is normal. Breath sounds: Normal breath sounds. Abdominal: Palpations: Abdomen is soft. Musculoskeletal: General: Normal range of motion. Neurological: General: No focal deficit present. Mental Status: She is alert and oriented to person, place, and time. Psychiatric: Mood and Affect: Mood normal. Behavior: Behavior normal. Thought Content: Thought content normal. Judgment: Judgment normal. Vitals and nursing note reviewed. Vitals: Estimated body mass index is 26.78 kg/m as calculated from the following: Height as of 07/16/22: 5' 4 . Weight as of this encounter: 156 lb. BP: 150/78 No LMP recorded (lmp unknown). Patient has had a hysterectomy. ASSESSMENT & PLAN ICD-10-CM 1. Osteopenia, unspecified location M85.80 Patient presents for check up concerned she had small area of swelling but has now disppeared. Exambenign, suspected follicular eruption that has improved. Dexa scan results also discussed, pt will think about fosomax and call if she decides to start. Pros and cons reviewed Documented by AZUL Zapata on behalf of: Adrian Florence DO documented in this encounterFreeman Orthopaedics & Sports [id number] History of Present illness Narrative* Chay Alejandre DPM - 06/14/2024 10:45 AM EST Images from the original note were not included. HPI: Patient presents today For follow-up of bilateral foot pain, neuroma and callus. Overall she statesthat her symptoms have improved and she is [...] Valgus R>L Toe deformity bilateral Treatment Note: Neuroma: Discussed with the patient the further options for treatment due to the continued pain related to the neuroma on the bilateral foot. We discussed topical anti-inflammatory/nerve medication, more aggressive immobilization vs injection. Discussed with the patient a corticosteroid injection. At this time she states that she has not been very consistent in using the topical medication and she would like to use that more consistently and see if it helps to improve her symptoms prior to trying the injection. Patient will continue with use of the metatarsal padding and accomodative shoe gear. She will follow-up in 4-6 weeks for recheck if needed based on her symptoms. documented in this encounterFreeman Orthopaedics & Sports [id number] History of Present illness Narrative* AZUL Zapata - 05/21/2024 10:00 AM EST Reason for Appointment: Patient ID: Candelaria Foster [...] (See Comments) Other Reaction(s): Itching Acetaminophen Itching Frsdl-Jqvxipg-Qithwq Other Other Reaction(s): Unknown Reaction Caffeine Anxiety [...] with bilateral sciatica Arrhythmia Arthritis Atherosclerosis of [place] artery of both lower extremities with intermittent [...] with bilateral sciatica Arrhythmia Arthritis Atherosclerosis of [place] artery of both lower extremities with intermittent [...] 2021 EGD 05/2019 OTHER SURGICAL HISTORY 02/2016 [facility] OTHER SURGICAL HISTORY 11/2017 Bx Periclitor, peroneal [...] the vaginal odor she is having. Pt verballyunderstood. Pap/cx's were obtained without difficulty. Pt is advised that the cx's take about 2 days to come back and office will call her if anything comes back abnormal. Follow Up: Patient is to return in one year for annual unless needed otherwise. Documented by Patricia Dougherty MA on behalf of: AZUL Zapata * AZUL Zapata - 05/21/2024 10:00 AM EST Reason for Appointment: Patient ID: Candelaria Foster [...] (See Comments) Other Reaction(s): Itching Acetaminophen Itching Pfxxo-Cxcylfc-Oaapfo Other Other Reaction(s): Unknown Reaction Caffeine Anxiety [...] with bilateral sciatica Arrhythmia Arthritis Atherosclerosis of [place] artery of both lower extremities with intermittent [...] with bilateral sciatica Arrhythmia Arthritis Atherosclerosis of [place] artery of both lower extremities with intermittent [...] 2021 EGD 05/2019 OTHER SURGICAL HISTORY 02/2016 [facility] OTHER SURGICAL HISTORY 11/2017 Bx Periclitor, peroneal [...] behalf of: AZUL Zapata documented in this encounterFreeman Orthopaedics & Sports [id number] History of Present illness Narrative* Chay H Hill, DPM - 03/06/2024 8:45 AM EDT Images from the original note were not included. HPI: Patient presents today For follow-up of bilateral foot pain, neuroma and callus. Overall she statesthat her symptoms have improved and she is [...] prescribed through [facility] formulation Gabadiclomax with verapamil toalso help with the circulation. Advised them on [...] care and discharged to this and has n ot seen anyone officially with vascular surgery. This may be an option in the future if she has persistent symptoms are related to the circulation in the feet. Will follow up in 4-6 weeks for recheck. documented in this encounterFreeman Orthopaedics & Sports [id number] Evaluation note* Encounter Date Diagnosis Assessment Notes Treatment Notes Treatment Clinical Notes Dec, Cigarette nicotine d ependence without complication (ICD-10 - F17.210) LDCT lungs w/o suspicious nodules - 12/2022Dec,Mucopurulent chronic bronchitis (ICD-10 - J41.1) [employer] Other 06-20-2023 Evaluation note* Encounter Date Diagnosis Assessment Notes Treatment Notes Treatment Clinical Notes Nov, Wellness examination (ICD-10 - Z 00.00) Healthy diet and exercise. Reviewed age-appropriate preventive testing recommended. Nov,Mucopurulent chronic bronchitis (ICD-10 - J41.1)Instructed on smoking cessation Nov,igarette nicotine dependence without complication (ICD-10 - F17.210)This patient has been encouraged to quit tobacco use immediately. They are aware of the hazards associated with tobacco use, including but not limited to respiratory infections, vascular disease and cancers. Nov,ure hypercholesterolemia (ICD-10 - E78.00)Instructed on diet and exercise with continued statin therapy.Discussed the beneficial effects of lo wering cholesterol in reducing the risk for cerebrovascular and cardiovascular disease. Nov,rimary hypertension (ICD-10 - I10)This patient is instructed to consume a healthy, low-fat, low-salt diet. They are also encouraged to continue exercise to achieve/maintain a normal BMI. Nov,OSA (obstructive sleep apnea) (ICD-10 - G47.33)This patient is aware of the benefits associated with TARA: With continued use, the patient reduces t he risk for NM, CVA, HTN, cardiac dysrhythmias and sudden cardiac deaths.The patient is also aware of the association between TARA and morning headaches, daytime somnolence, fatigue and obesity, whichalso has been improved with continued use.The patient is compliant with treatment, wearing the equipment every night for greater than 4 hours.The patient is instructed to continue use of the CPAP forOSA treatment. Nov,IFG (impaired fasting glucose) (ICD-10 - R73.01)This patient is following a comprehensive diabetic treatment [...] Microalbumin, Dilated eye exam and Foot exam Nov,ulmonary nodule (ICD-10 - R91.1)24 month post PET/CT was due 08/2022 CT scheduled prior to Pulmonary visit Nov,denomatous polyp of descending colon (ICD-10 - D12.4)Repeat colonoscopy due changes in appetitie or bowel habits No bleeding Plan repeat scope in 5years Nov,therosclerosis of [place] artery of both lower extremities with intermittent claudication (ICD-10 -I70.213)Inspect feet daily, walk daily. Continue ASA and Statin therapy [employer] Other 01-22-2023 History general Narrative - Reported* Type Description Date Medical History hypertension Medical HistoryhyperlipidemiaMedical HistoryfibromyalgiaSurgical History hysterectomySurgical Historycolonoscopy07/18/22 [employer] Other 01-22-2023 History general Narrative - Reported* Type Description Date Medical History hypertension Medical HistoryhyperlipidemiaMedical HistoryfibromyalgiaSurgical History hysterectomySurgical Historycolonoscopy07/18/22Hospitalization Historysee surgical history [employer] Other 12-13-2022 Evaluation note* Encounter Date Diagnosis [...] her widesprvarious medications that could help with heroverall symptoms, however patient declines and states my body overreacts to all medications. Patient was instructed to call our office should she wish to pursue the above mentioned treatment options. We will follow up as needed. Anatomy of spine discussed in detail with patient in regards to patients condition. May,Thoracic back pain (ICD-10 - M54.6) May,ther chronic pain (ICD-10 - G89.29) May,therAbove note written by Rashaad Alejandre MA, Driver Utility Worker. Edited and approved by Dr. David Lemus MD.Medical decision making shows a new problem to me with further workup planned or suggested with thepotential for extensive treatment options that were considered with the most applicable given this patient's situation as noted above. Treatment options considered include a combination of physical therapy approaches, pharmacologic management, and interventional procedures. Those most applicable tothe patient were discussed at this time. Risk [...] prolonged functional impairment requiring constant patient reassessment andhigh- level medical decision making. The amount and complexity of data reviewed is high given that patient labs, radiology reports, and other test were obtained, reviewed and summarized as applicable from the physician portal and/or outside medical records. Pertinent positive and negative findings were considered in medical decision-making. [employer] Other 08-29-2022 Evaluation note* Encounter Date Diagnosis Assessment Notes Treatment Notes Treatment Clinical Notes Jan, Screening for colon cancer (ICD- 10 - Z12.11) [employer] Other Evaluation noteNo InformationNort [employer] Other Evaluation note* Diagnosis Onset Date Resolution Status Chronic bronchitis acuteGAD (generalized anxiety disorder)acuteHypertensionacuteNicotine addiction acuteOSA (obstructive sleep apnea)acutePeripheral artery diseaseacuteWellness examinationnoneaMagruder Memorial Hospital Work Phone: Evaluation note* Diagnosis Well [...] both feet documented in this encounter [facility] HealthcareEvaluation note* Diagnosis Neuroma digital nerve- Primary Other specified peripheral vascular diseases (CMS/HCC) Pain in both feet documented in this encounter [facility] HealthcareEvaluation note* Diagnosis Osteopenia, unspecified location documented in this encounter [facility] HealthcareEvaluation note* Diagnosis Seborrheic keratosis- Primary Melanocytic nevus of trunk Benign neoplasm of skin of trunk, except scrotum Melanocytic nevus of scalp Benign neoplasm of scalp and skin of neck Lentigines Thompson angioma History of basal cell carcinoma Personal history of other malignant neoplasm of skin documented in this encounter [facility] HealthcareHistory general Narrative - Reported* Type Description Date Medical History hypertension Medical HistoryhyperlipidemiaMedical HistoryfibromyalgiaSurgical History hysterectomy [employer] Other Reason for referral (narrative)No reason for referral information availableUniversity Hospitals [facility] Work Phone: Summary Purpose Family History Relationship Condition Age at Onset Recorded Date/T vinnie Not Specified Graves' disease Unknown Ulcerative colitisUnknownGlaucomaUnknownHypertensionUnknownBasal cell carcinoma (BCC)UnknownfatherMyocardial infarctionUnknowngrandparentMyocardial infarction UnknownbrotherHypertensionUnknownHistory of coronary artery stent placement UnknownsisterDeep vein thrombosis (DVT)UnknownAnxietyUnknownfatherDeceased Unknown Relationship Condition Age at Onset Recorded Date/T vinnie mother Graves' disease Unknown Ulcerative colitisUnknownGlaucomaUnknownHypertensionUnknownBasal cell carcinoma (BCC)UnknownfatherMyocardial infarctionUnknowngrandparentMyocardial infarction UnknownbrotherHypertensionUnknownHistory of coronary artery stent placement UnknownsisterDeep vein thrombosis (DVT)UnknownAnxietyUnknownfatherDeceased Unknown Advance Directives Advance Directive Response Recorded Date/ Time Advance Directives No May 5:10pm Chief Complaint and Reason for Visit Chief Complaint Wellness Reason for Visit Chronic bronchitis ELADIO (generalized anxiety disorder) Hypertension Nicotine addiction TARA (obstructive sleep apnea) Peripheral artery disease Wellness examination Chief Complaint Admit Date welcome to medicare December 20, 2024 11:4 5am Reason for Visit Admit Date Chronic bronchitis December 20, 2024 11:4 5am ELADIO (generalized anxiety disorder) December 20, 2024 11:45am Hypercholesterolemia December 20, 2024 11: 45am Hypertension December 20, 2024 11:4 5am Nicotine addiction December 20, 2024 11:4 5am TARA (obstructive sleep apnea) December 20, 2024 11:45am Peripheral artery disease December 20 11:45am Screening mammogram for breast cancer ne 2024 11:45am Chronic obstructive pulmonar y disease with (acute) lower respiratory infection December 20, 2024 11:45am Welcome to Medicare preventive visit Robinson e 2024 11:45am Chief Complaint Admit Date BP concern April 17, 2025 3 :44pm Reason for Visit Admit Date Abdominal pain [...] Peripheral artery disease April 17, 2025 3:44pm Additional Source Comments INFORMATION SOURCE (unrecogn ized section and content) DATE CREATED AUTHOR 12/14/2017 [facility] DATE CREATED AUTHOR AUTHOR'S ORGANIZ ATION 06/23/2022 [facility] DATE CREATED AUTHOR AUTHOR'S ORGANIZ ATION 09/21/2022 [facility] DATE CREATED AUTHOR AUTHOR'S ORGANIZ ATION 11/07/2024 [facility] EPIC REASON FOR VISIT (unrecogniz ed section and content) ReasonCommentsGynecologic ExamReasonCommentsDiscuss Dexa ScanReasonCommentsSkin Check Care Teams (unrecognized sec tion and content) Team Status: Active Member Role Status Dates Clint Ann DO Primary Care Provider Active Team Status: Active Member Role Status Dates Clint Ann DO Primary Care Provider Active Start: October 26, 2024 [facility] DOAttending ProviderActiveStart: October 26, 2024 Team Status: Inactive Member Role Status Dates Clint Ann DO Primary Care Provider Active Start: December 20, 2024 End: December 20Royce Chau ProviderActiveStart: December 20, 2024 End: December 20, 2024 Team Status: Inactive Member Role Status Dates Clint Ann DO Primary Care Provide r, Attending Provider Active Start: December 16, 2023 End: December 16, 2023Team MemberRelationshipSpecialtyStart DateEnd Date Clint Ann MD [address] [place] [phone] PCP - GeneralInternal Bcoqgjcl57/20/23Team MemberRelationshipSpecialtyStart Date End Date Clint Ann MD [address] [place] [facility] [address] PCP - GeneralVerde [facility] Medical Centernal Ekmkxxka96/20/23Team MemberRelationshipSpecialtyStart Date End Date Clint Ann MD [address] [place] [facility] [address] PCP - GeneralVerde Valley Medical Centernal Pdukrsft50/20/23Team MemberRelationshipSpecialtyStart Date End Date Clint Ann MD [address] [place] [facility] [address] PCP - GeneralVerde Valley Medical Centernal Yjzdkbfo69/20/23Te MemberRelationshipSpecialtyStart Date End Date Clint Ann MD [address] [place] [facility] [address] PCP - GeneralVerde Valley Medical Centernal Fxyrnuxz81/20/23Te MemberRelationshipSpecialtyStart Date End Date Clint Ann MD [address] [place] [facility] [phone] PCP - GeneralInternal Bgtntemf14/20/23Team MemberRelationshipSpecialtyStart Date End Date Clint Ann DO PCP - GeneralInternal Qbeiqfaz89/20/23Team MemberRelationshipSpecialtyStart Date End Date Clint Ann DO PCP - GeneralInternal Pjggryjy90/20/23 Team Status: Active Member Role/Relationship Status Dates Clint Ball , DO Primary Care Provider Active Team Status: Inactive Member Role/Relationship Status Dates Clint Ann DO Primary Care Provider Active Start: April 17, 2025 End: April 17enjatony Marissa Attending ProviderActiveStart: April 17, 2025 End: April 17, 2025Team MemberRelationshipSpecialtyStart DateEnd Date Clint Ann PCP - GeneralInternal Dlyztblz22/20/23 Goals (unrecognized section and content) Goals may [...] BE BASED ON THE PRIMARY CLINICAL RECORDS. [employer] [facility]. provides no warranty or guarantee of the accuracy or completeness of information in this document.
--- OUTSIDE RECORDS SUMMARY | 2025-05-28 19:04 | XMS_ITS | Clinical Summary ---
Author Organization [facility] Address [address] [place] [address] Care Team Providers Care Cooperative Manager Name Role Phone Unavailable Primary Care Provider Unavailabl e Social History Tobacco UseTypesPacks/DayYears UsedDateSmoking Tobacco: Never Assessed CommentsUnknownSex and Gender InformationValueDate RecordedSex Assigned at Not on fileLegal PhhFybjdf75/30/2022 12:20 AM EDTGender IdentityNot on file Sexual OrientationNot on file Plan of Treatment Not on file
--- OUTSIDE RECORDS SUMMARY | 2025-05-28 19:04 | XMS_ITS | Encounter Summary ---
Author Organization [facility] Address [address] [place] [address] Care Team Providers Care Swimming Teacher Name Role Phone Clint Veras DO Primary Care Provider [phone] Encounter Details DateTypeDepartmentCare Team (Latest Contact Info)Gfnypnkkaqj02/02/2025Bamboo flowsheet [facility] [address] [place] [address] Nimco Fajardo PA [address] [place], [facility]11 Social History Tobacco UseTypesPacks/DayYears UsedDateSmoking Tobacco: Unknown Comments:Current smoker freq uency unknown Alcohol UseStandard Drinks/WeekCommentsNever0 (1 standard drink = 0.6 oz pure alcohol)caffeine: noCommentsNoSex and Gender InformationValueDate RecordedSex Assigned at BirthNot on fileLegal ItmRyrybo55/15/2023 6:59 PM EDT Gender IdentityNot on fileSexual OrientationNot on filedocumented as of this encounter Plan of Treatment DateTypeDepartmentCare Team (Latest Contact Info)Mlwiqnyiucl84/12/2026 11:20 AM EDTOffice Visit [facility] [address] [place] [address] Kylah Lemus, CHAIN TENDER-GROUND HELPER STREET RAILWAY [address] [place] [address] 06/03/2026 11:00 AM ESTProcedure Visit [facility] [address] [place] [phone] Nimco Fajardo PA [address] [place] [address] documented as of this encounter Visit Diagnoses Not on filedocumented in this encounter Care Teams Team MemberRelationshipSpecialtyStart DateEnd Date Clint Veras DO [address] [place] [phone] PCP - GeneralInternal Yyajjkaa55/20/23documented as of this encounter
--- OUTSIDE RECORDS SUMMARY | 2025-05-28 19:04 | XMS_ITS | Data Portability ---
Author Organization [place] [facility] [employer] Address 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 6. We discussed that job rotation is important. 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 cc: William Veras D.O.kdenselNot dtvzfveiv81/07/2019 11:16:38 Plan of Treatment Reminders Order DateSubmit DateProviderLast Modified ByMore DetailsLast Modified TimeDetailsAppointmentsNone recorded.LabNone recorded.ReferralNone recorded. ProceduresNone recorded.SurgeriesNone recorded.ImagingNone recorded.Medication OrdersNone recorded. Patient TargetsNo targets recorded. Patient Instructions Encounter Date Encounter Id Patient Instructions Last Modified By Organization Details Last Modified Time 06/30/2018 [id number] carpal tunnel syndrome education shubbell1 Not available 07/01/2018 19:10:04 Reason for Referral None Reported. Problems Name Problem SNOMED Code Status Onset Date Resolution Date Notes Provider Name and Address Organization Details Recorded Time Carpal tunnel syndrome of right wrist 671088107733954 Acti ve 07/01/2018 Wilma Casiano MD [address] [address], [place], [address], [facility] 07/01/2018 19:09:49Pain of bilateral zslmv89056573181393797Vgvnga48/05/2019Wilma Casiano MD [address] [address], [place], [address], [facility] 07/01/2018 19:09:50Paresthesia of upper gmnk46597807Rlrzze53/05/2019Wilma Casiano MD [address] [address], [place], [address], [facility] 07/01/2018 19:09:51Osteoarthritis of joint of hwyo06027061Xfjsqh81/05/2019Wilma Casiano MD [address] [address], [place], [address], [facility] 07/01/2018 19:09:52 Problem Notes None recorded. Procedures Surgical History Date Name Laterality Status Provider Name and Address Organization Details Recorded Time 06/30/2018 [facility] 07/05/2018 10:43:31 Imaging Results None recorded. Procedure Notes None recorded. Medical Equipment None Reported. Medications Name Sig Start Date Stop Date Status Note LastModified by Organization Details LastModified Time prednisone 20 mg tablet activeNot AvailableNot AvailableNot Availableacetaminophen 300 mg-codeine 30 mg tabletactiveNot AvailableNot AvailableNot Availablediclofenac sodium 75 mg tablet,delayed releaseactiveNot AvailableNot AvailableNot Availableibuprofen 600 mg tabletactiveNot AvailableNot AvailableNot Availableestriol micronized (bulk) 100 % powderactiveNot AvailableNot AvailableNot Availableoxycodone 5 mg tablet activeNot AvailableNot AvailableNot Availablecyclobenzaprine 5 mg tabletactive Not AvailableNot AvailableNot Availableescitalopram 5 mg tabletactiveNot AvailableNot AvailableNot Availableprogesterone micronized (bulk) 100 % powder activeNot AvailableNot AvailableNot Available Vitals None Recorded Social History None recorded. Functional Status None recorded. Mental Status None recorded. Family History Nothing Reported. Medical History No medical history recorded. Gynecological HistoryNo gynecological history recorded. Obstetrics History GPAL:G 0 P 0 0 0 0 Past Encounters Encounter ID Performer Location Encounter Start Date Encounter Closed Date Diagnosis/Indication Diagnosis SNOMED-CT Code Diagnosis ICD10 Code Diagnosis IMO Codes Diagnosis Note [id number] Wilma Casiano MD [facility] [address] [place] [id number] 06/30/2018 08:32:50 07/03/2018 08:02:03 Carpal tunnel syndrome of right wrist 597458417099024 G56.01 Pain of bilateral ubkwy96871762484303912T91.641 M79.642 Paresthesia of upper hdgt35397485Y62.2 Osteoarthritis of joint of noym22402434C77.049 Health Concerns Section Related Observation LastModified by Organization Detai ls LastModified Time None Recorded Concern Status LastModified by Organization Details LastModified Time None Recorded Advance Directives Directive None Recorded Payers Insurance Date Sequence Insurance Name Policy Number Policy Alvarez Covered Member ID Alvarez Member ID Guarantor Name 07/28/2018 1 [employer]au[employer] [facility] [employer] (TRADITIONAL) [employer] Candelaria Banda [id number] Candelaria Banda*SELF PAY*Candelaria Banda Notes Date Note Type Note Provider Name and Address Orga nization Details Recorded Time 06/30/2018 text/html ROS as noted in the HPI CHIEF COMPLAINT: Thank you for referring Candelaria Hong Banda to the [facility] office for electrodiagnostic medicine consultation. She is [...] her. She has been told she has abulging disc but has never had any surgery. She has never had a fracture of either arm. She is not diabetic. She does not think her right arm is as severe as the left. Sometimes she has soreness of the right elbow and the right shoulder. 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 [...] a herniated lumbar disc. She gets numbness inher left thigh. 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 She said she was off for12 days of work, and she definitely felt better after she was off. She has only been back to work two days so far. PAIN SCALE: On the pain inventory, she kimbrough both hands, both shoulders, and the low back. She rates her pain at its worst in the last 24 hours as 7/10 and at its least as 1/10. She rates her averagepain as 6/10. She feels that her pain severely interferes with enjoyment of life. It mildly interferes with normal work, relations with other people, mood, and general activity. It does not interferewith walking ability. When asked to describe the pain, she circles the words aching, stabbing, sharp, exhausting, tender, numb, shooting, pricking, and radiating. She is better with rest and Cortisone shots. She is worse when she is doing the dishes and doing housework, opening jars, doing yoga, and working. PAST MEDICAL HISTORY: Positive for headaches, heartburn, chronic back pain, basal cell skin cancer,depression, anxiety, and arthritis. Her surgeries includes hysterectomy, [...] HISTORY: She is and employed as a warehouse production worker. She finished high school. She has no [...] the chart and includes a ten system review.Mely anders, [place] - [facility] 07/05/2018 10:48:44 OBGyn Episode No OBEpisode recorded.
--- OUTSIDE RECORDS SUMMARY | 2025-05-28 19:04 | XMS_ITS | Clinical Summary ---
Author Organization [facility] Address [address] [place] [address] Care Team Providers Care Parking Worker Name Role Phone Clint Veras Primary Care Provider [phone] Allergies Active AllergyReactionsCriticalityNoted DateCommentsAcetaminophenItching 4BupropionHives,Itching,CtbsNvkn12/01/2005 Other Reaction(s): antidepressants - rash Other Reaction(s): Unknown EstbickcQyhaieqIsy63/09/2016 Other Reaction(s): Unknown Other Reaction(s): Intolerance, Other (See Comments) Way over stimulates the patient Other Reaction(s): Intolerance, Unknown Reaction CyclobenzaprinePalpitations,XzcnMrhr61/17/2017 Other Reaction(s): Other (See Comments), Other: See Comments Increase in blood pressure and pulse Other Reaction(s): Hypertension, Comment:Rash, Other: See Comments, Unknown ZjbdepjwscsnBotlwffPsyu59/15/2009 Other Reaction(s): unknown Other Reaction(s): Other (See Comments) Other Reaction(s): Itching Zsmon-Vrpwneo-QkgazwGsdlg09/23/2019 Other Reaction(s): Unknown Reaction Medications MedicationSigDispense QuantityRefillsLast FilledStart DateEnd DateStatus lisinopril 5 MG tablet Take 5 mg by mouth DailyActive aspirin 81 MG chewable tablet Chew 81 mg in the morning.Active atorvastatin (Lipitor) 20 MG tablet Take 10 mg by mouth Daily06/27/2023Active Incruse Ellipta 62.5 MCG/ACT aerosol powder 62.5 mcg 1 (one) time each day5Active Active Problems No known active problems Encounters DateTypeDepartmentCare JhdiRspamomkwfo81/02/2025 11:00 AM ESTOffice Visit [facility] [address] [place] [phone] Nimco Fajardo PA Well woman exam with routine gynecological exam; Encounter for screening mammogram for malignant neoplasm of breast; Leakage of urine from urinary wqyasrd7505/28/2025amboo flowsheet [facility] [address] [place] [address] Nimco Fajardo PA from Last 3 Months Family History Medical HistoryRelationNameCommentsHeart diseaseBrotherHypertensionBrotherHeart diseaseFatherStrokeMaternal GrandmotherHypertensionMotherIrritable bowel syndromeMotherOsteoporosisMotherDisuseSkin cancerMotherHeart diseasePaternal GrandfatherClotting disorderSister 1DepressionSister 1MajorNo Known Problems Sister 2MelanomaNeg HxRelationNameStatusCommentsBrotherFatherDeceasedMaternal GrandfatherDeceasedMaternal GrandmotherDeceasedMotherAlivePaternal Grandfather DeceasedPaternal GrandmotherDeceasedSister 1Sister 2 Social History Tobacco UseTypesPacks/DayYears UsedDateSmoking Tobacco: Unknown Tobacco Cessation:Counseling Given: Not Answered Comments:Current smoker frequency unknown Alcohol UseStandard Drinks/WeekCommentsNever0 (1 standard drink = 0.6 oz pure alcohol)caffeine: noCommentsNoSex and Gender InformationValueDate RecordedSex Assigned at BirthNot on fileLegal RtbZbtjoy76/15/2023 6:59 PM EDT Gender IdentityNot on fileSexual OrientationNot on file Last Filed Vital Signs Vital SignReadingTime TakenCommentsBlood Yacxatel289/7805/28/2025 11:15 AM EST Pulse--Temperature--Respiratory Rate--Oxygen Saturation--Inhaled Oxygen Concentration--Sfnrve22.9 kg (154 lb)05/28/2025 11:15 AM UOVObdhrc643.6 cm (5' 4 )07/16/2022 12:00 PM ESTBody Mass Index26.43007/16/2022 12:00 PM EST Plan of Treatment DateTypeDepartmentCare Team (Latest Contact Info)Hdfhweilspp19/12/2026 11:20 AM EDTOffice Visit [facility] [address] [place] [address] Kylah Lemus, BIOLOGY FACULTY MEMBER-FINISH PHOTOGRAPHER [address] [place] [address] 06/03/2026 11:00 AM ESTProcedure Visit [facility] [address] [place] [address] Nimco Fajardo PA [address] [place] [address] [place] [address] Care Teams Team MemberRelationshipSpecialtyStart [place] [address] [place] [phone] PCP - GeneralInternal Kxujkaso06/20/23
== END 2025-05-28 19:00 | disposition home or self-care (01) ==
LOC: LAB 18:59
PROVIDERS: PCP Internal Medicine; Visit Provider Physician Assistant
DX: Z01.419 Encounter for gynecological examination (general) (routine) without abnormal findings (principal)
CPT/HCPCS: 87624; 88175

== ENCOUNTER 2025-06-17 10:25 | Outpatient (OUT) | payer MEDICARE, OTHER, SELFPAY ==
--- OUTSIDE RECORDS SUMMARY | 2024-02-02 06:00 | XMS_ITS ---
Author Organization [facility] in [place] Address [address] [place] [address] Care Team Providers Care Drapery Inspector Name Role Phone Clint Veras DO Primary Care Provider Sergio Casper [phone] REASON FOR VISIT 1YEAR-COPD, LDCT Encounters Encounter Location Date Provider Diagnosis Pulmonary [facility] [address] [place] [address] 02/02/2024 Sergio Perry Plan Of Treatment No Information Progress Notes * Candelaria FOSTER LDOB:[birth year] (64 yo F)Acc No.[id number]:02/02/2024 UNLOCKED PROGRESS NOTE Follow Up Patient: Velvet ROJASCandelaria WILHELM :?Sergio Perry, DODOB:1960???Age:63 Y ???Sex:FemaleDate:4Phone:[phone]:[phone] [place], [id number]:Clint Veras DO Subjective: * Chief Complaints: * 1 . 1YEAR-COPD, LDCT. * Medical History: Objective: * Vitals: Assessment: Plan: * Treatment: * * Electronic signature of Sergio Perry DO on 06/17/2025 at 10:27 AM ESTSign off status: PendingVisit Status:?R/S (Rescheduled) * Provider: James Perry DO Date: 0 02/02/2024 Generated for Printing/Faxing/eTransmitting on:?06/17/2025 10:27 AM EST
--- OUTSIDE RECORDS SUMMARY | 2025-06-17 10:27 | XMS_ITS | Clinical Summary ---
Author Organization [facility] Address [address] [place] [address] Care Team Providers Care Deflector Operator Name Role Phone Clint Veras Primary Care Provider [phone] Allergies Active AllergyReactionsCriticalityNoted DateCommentsCaffeineIntolerance 03/05/2016Propoxyphene N-CkxercubwtemaXrevhzj45/09/2016Cyclobenzaprine HclOther: See Lggjqfmd23/06/2018 Increase in blood pressure and pulse Bupropion JdfHujdhzs03/09/2016 Medications MedicationSigDispense QuantityRefillsLast FilledStart DateEnd DateStatus Progesterone Micronized, Bulk, 100 % powd 09/20/2017Active diclofenac, EC, (VOLTAREN) 75 mg EC tablet Take 75 mg by mouth once daily. 08/10/2017Active lidocaine (LIDODERM) 5 % Apply 1 Patch as directed every 24 hours.Active acetaminophen (TYLENOL EXTRA STRENGTH) 500 mg tablet Take 500 mg by mouth every 8 hours as needed.Active docusate sodium (COLACE) 100 mg capsule Take 1 capsule by mouth twice daily. 60 capsule Active ibuprofen (MOTRIN) 600 mg tablet Take 1 tablet by mouth every 6 hours as needed for Pain. 60 tablet Active escitalopram oxalate (LEXAPRO) 5 mg tablet escitalopram 5 mg tabletActive ESTRIOL MICRONIZED, BULK, MISC Active Active Problems ProblemNoted DateDiagnosed DateVIN III (vulvar intraepithelial neoplasia III) 10/05/2017 Overview (10/05/2017): Added automatically from request for surgery [id number] Intercostal pain03/05/2016Mixed ijuuvcpdteuqkk79/09/2016Abnormal stress test 03/05/2016 Family History Medical HistoryRelationCommentsHeartBrotherCardiac Stent PlacementHeartFatherd. @ 42 of MICancerMotherSkinThyroidMotherHeartPaternal Grandfatherd. @ 45 of [place] HeartSisterRelationStatusCommentsBrotherFatherMotherPaternal GrandfatherSister Social History Tobacco UseTypesPacks/DayYears UsedDateSmoking Tobacco: Every DayCigarettes0.5 43.7Started: 10/17/1981Smokeless Tobacco: NeverAlcohol UseStandard Drinks/Week KsonrbccMzx71 (1 standard drink = 0.6 oz pure alcohol)Area Deprivation Index AnswerDate RecordedNational Score (1-100), lower number is lower riskNot on file 06/05/2020State Score (1-10), lower number is lower riskNot on file06/05/2020 Data from: https://www.neighborhoodatlas.medicine.[facility].edu/. Last address used for calculationNot on file06/05/2020CommentsNoSex and Gender Information ValueDate RecordedSex Assigned at BirthNot on fileLegal JzdYhbeas33/06/2016 10:01 AM EDTGender IdentityNot on fileSexual OrientationNot on fileOccupation IndustryJob Start DateJob End DateProduction OperatorNot on fileNot on fileNot on file Last Filed Vital Signs Vital SignReadingTime TakenCommentsBlood Blsvwisl635/8607/14/2018 7:57 AM EST zpuwwhxudLyeti1183/18/2019 7:57 AM WFKOlrzyxtbblp99.8 ??C (98.2 ??F)07/14/2018 7:56 AM ESTRespiratory Jypu041607/14/2018 7:56 AM ESTOxygen Rwtwdlslim17% 07/14/2018 7:56 AM ESTInhaled Oxygen Concentration--Tinyym54.2 kg (165 lb 12.8 oz)07/14/2018 7:56 AM FVSOqtoyn155.5 cm (5' 2.01 )07/14/2018 7:56 AM ESTBody Mass Index30.32007/14/2018 7:56 AM EST Plan of Treatment Health MaintenanceDue DateLast DoneCommentsAnxiety Rxtmlekgq12/17/1978Depression Pkhamqmjg02/17/1978HIV Avcjrqjxc08/17/1978Hepatitis C Roqnyuvma81/17/1978 DTaP,Tdap,Td Vaccine (1 - Tdap)10/11/1978Mammogram Etxgbhbve83/17/2000CT Pomtklnrsvce25/17/2005Cologuard (FIT-DNA)10/11/20042064Vissgmgvcyy28/17/2005 Colorectal Cancer Hoxbyimvw51/17/2005Fecal Occult Blood10/11/2004Lipid Screening 10/11/20042544Lmoimwdachbpb56/17/2005Pneumococcal Vaccine: 50+ (1 of 1 - PCV) 10/11/2009Shingrix Vaccine (1 of 2)10/11/2009Diabetes Boskgvuns31/09/2023 09/03/2019, 08/28/2019, 10/19/2017Advance Directive Wfmxcfypkt95/17/2025Bone Density Otiochagb08/17/2025ovid-19 Vaccine (2 - 2024- season)2025 09/03/2020Influenza Vaccine (#1)2025RSV Vaccine (1 - 1-dose 75+ series) 10/11/2034 Procedures Procedure NamePriorityDate/TimeAssociated DiagnosisCommentsCOMPREHENSIVE METABOLIC SGHTQSmybpxf28/25/2018 1:43 PM EDT Pre-operative clearance BRETT III (vulvar intraepithelial neoplasia III) Mixed hyperlipidemia from Last 3 Months or Most Recently Relevant to Health Maintenance Results * COMP METABOLIC PANEL (10/19/2017 1:43 PM EDT)ComponentValueRef RangeTest MethodAnalysis TimePerformed AtPathologist SignatureProtein, Total7.86.3 - 8.0 g/dL10/20/2017 12:45 [facility] LAB[facility]ATORYAlbumin4.73.9 - 4.9 g/dL10/20/2017 12:45 AM EDTCLEVEL[facility] LABORATORYCalcium9.98.5 - 10.2 mg/dL10/20/2017 12:45 AM EDTCLEVEL[facility] LABORATORYBilirubin, Total0.40.2 - 1.3 mg/dL10/20/2017 12:45 AM [facility] Alkaline Eqqbuubtduh7579 - 117 U/L10/20/2017 12:45 AM [facility] DCZQYQXALNCHZ0856 - 35 U/L10/20/2017 12:45 AM [facility] WZPSGCEUWAGfglkbc0145 - 99 mg/dL10/20/2017 12:45 AM [facility] MAIN LABORATORYComment: The [place] Diabetes Association (ADA) provides guidance for cutoff [...] Standards of Medical Care in Diabetes 2016, [place] Diabetes Association. Diabetes Care. 2016.39(Suppl 1). EHS492 - 21 mg/dL10/20/2017 12:45 AM [facility] Creatinine0.740.58 - 0.96 mg/dL10/20/2017 12:45 AM [facility] GVKHENDIWLWzwlfq718257 - 144 mmol/L10/20/2017 12:45 AM [facility] LABORATORYPotassium4.63.7 - 5.1 mmol/L10/20/2017 12:45 AM [facility] ERXIZXGNKEWkdmpzja00816 - 105 mmol/L10/20/2017 12:45 AM [facility] SOUAKVORPYIE69768 - 30 mmol/L10/20/2017 12:45 AM [facility] LABORATORYAnion Ffr401 - 18 mmol/L10/20/2017 12:45 AM [facility] BVRZJWKCGLNTG921 - 38 U/L10/20/2017 12:45 AM [facility] eGFR->6004 12:45 AM [facility] eGFR-All Other Races>60.10/20/2017 12:45 AM [facility] Comment: eGFR (Estimated GFR) Units of [...] eGFR may not accurately reflect actual GFR. Specimen (Source)Anatomical Location / LateralityCollection Method / Volume Collection TimeReceived TimeBlood specimen (specimen)BLOOD SPECIMEN / Unknown 10/19/2017 1:43 PM EDT10/19/2017 1:45 PM EDT Narrative Authorizing ProviderResult TypeResult StatusDaniceline Garcia APRN.[facility] LABORATORYFinal ResultPerforming OrganizationAddressCity/State/ZIP CodePhone Number [facility] [address] [place] [address] from Last 3 Months or Most Recently Relevant to Health Maintenance Care Teams Team MemberRelationshipSpecialtyStart DateEnd Date Clint Veras DO PCP - GeneralInternal Medicine03/02/16
--- OUTSIDE RECORDS SUMMARY | 2025-06-17 10:28 | XMS_ITS | Patient Health Record ---
Author Organization [facility] Address [address] [place] [address] Care Team Providers Care Can Tender Name Role Phone Be Horn Unavailable [phone] Allergies Allergen (clinical drug ingredient) Drug/Non Drug Allergy documented on EMR Reaction Allergy Type Onset Date Status WellbutrinUnknownDrug AllergyActiveDarvocet F512JjigaxhMjga AllergyActive FlexerilUnknownDrug AllergyActive Reason For Referral No Information Medications Medication SIG (Take, Route, Frequency, Duration) Notes Start Date End Date Status lisinopril ActiveatorvastatinActiveBaby AspirinActive Social History Tobacco Use: Social History Observation Description Date Details (start date - stop date) Current Smoker NA - NA Smoking History Question Answer Notes Smoking Status Current Smoker Problems Problem Type SNOMED Code ICD Code Onset Dates Problem Status W/U Status Risk Notes Problem Localized, primary o steoarthritis of the hand (641924778) Arthritis of carpometacarpal (CMC) joint of left thumb (M18.12) ActiveconfirmedProblemLocalized, primary osteoarthritis of the hand (695878953) 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
--- OUTSIDE RECORDS SUMMARY | 2025-06-17 10:28 | XMS_ITS | Encounter Summary ---
Author Organization [facility] Address [address] [place] [address] Care Team Providers Care Rack Washer Name Role Phone Clint Veras DO Primary Care Provider Encounter Details DateTypeDepartmentCare Team (Latest Contact Info)Nzlntzoxiqg89/15/2025Orders Only [facility] [address] [place] [address] Lena Ozuna LPN [address] [facility] Social History Tobacco UseTypesPacks/DayYears UsedDateSmoking Tobacco: Unknown Comments:Current smoker freq uency unknown Alcohol UseStandard Drinks/WeekCommentsNever0 (1 standard drink = 0.6 oz pure alcohol)caffeine: noCommentsNoSex and Gender InformationValueDate RecordedSex Assigned at BirthNot on fileLegal CflEyuqnd52/15/2023 6:59 PM EDT Gender IdentityNot on fileSexual OrientationNot on filedocumented as of this encounter Plan of Treatment DateTypeDepartmentCare Team (Latest Contact Info)Nlecqzvodpl29/12/2026 11:20 AM EDTOffice Visit [facility] [address] [place] [address] Kylah Lemus, ASSISTANT PROJECT ENGINEER-ENGINEERED WOOD DESIGNER [address] [place] [address] 06/03/2026 11:00 AM ESTProcedure Visit [facility] [address] [place] [phone] Nimco Fajardo PA [address] [place] [address] documented as of this encounter Procedures Procedure NamePriorityDate/TimeAssociated DiagnosisCommentsPAP TEST, EXTERNAL Odrlauk7905/28/2025 12:00 AM ESTdocumented in this encounter Results * PAP TEST, EXTERNAL (05/28/2025 12:00 AM EST) Narrative Authorizing ProviderResult TypeResult StatusFazio Nurse [facility] ObLAB CYTOLOGY ORDERABLESFinal ResultPerforming OrganizationAddressCity/State/ZIP CodePhone Number EXTERNAL LAB documented in this encounter Visit Diagnoses Not on filedocumented in this encounter Care Teams Team MemberRelationshipSpecialtyStart DateEnd Date Clint Veras, [address] [place] [phone] PCP - GeneralInternal Efzntetg20/20/23documented as of this encounter
--- OUTSIDE RECORDS SUMMARY | 2025-06-17 10:28 | XMS_ITS | Clinical Summary ---
Author Organization [facility] Address [address] [place] [address] Care Team Providers Care Giving Officer Name Role Phone Clint Veras Primary Care Provider [phone] Allergies Active AllergyReactionsCriticalityNoted DateCommentsAcetaminophenItching 4BupropionHives,Itching,TrzgPswi99/01/2005 Other Reaction(s): antidepressants - rash Other Reaction(s): Unknown RyvzqwhzRmkaqaqDhr39/09/2016 Other Reaction(s): Unknown Other Reaction(s): Intolerance, Other (See Comments) Way over stimulates the patient Other Reaction(s): Intolerance, Unknown Reaction CyclobenzaprinePalpitations,JknaOzrn33/17/2017 Other Reaction(s): Other (See Comments), Other: See Comments Increase in blood pressure and pulse Other Reaction(s): Hypertension, Comment:Rash, Other: See Comments, Unknown GnysepoydyrrWeqxpiyXfkh04/15/2009 Other Reaction(s): unknown Other Reaction(s): Other (See Comments) Other Reaction(s): Itching Dhrjo-Bfiedcm-FlgltmVxepx66/23/2019 Other Reaction(s): Unknown Reaction Medications MedicationSigDispense QuantityRefillsLast FilledStart DateEnd DateStatus lisinopril 5 MG tablet Take 5 mg by mouth DailyActive aspirin 81 MG chewable tablet Chew 81 mg in the morning.Active atorvastatin (Lipitor) 20 MG tablet Take 10 mg by mouth Daily06/27/2023Active Incruse Ellipta 62.5 MCG/ACT aerosol powder 62.5 mcg 1 (one) time each day5Active Active Problems No known active problems Encounters DateTypeDepartmentCare MdkhApkfuehmrbh33/15/2025Orders Only [facility] [address] [phone] Lena Ozuna LPN 05/28/2025 11:00 AM ESTOffice Visit [facility] [address] [place] [address] Nimco Fajardo PA Well woman exam with routine gynecological exam; Encounter for screening mammogram for malignant neoplasm of breast; Leakage of urine from urinary xteodxy94/02/2025Clinisync Result Encounter [facility] Department Unsolicited Nimco Fajardo PA 05/28/2025amboo flowsheet [facility] [address] [place] [phone] Nimco Fajardo PA from Last 3 Months [...] InformationValueDate RecordedSex Assigned at BirthNot on fileLegal MwkInvofg53/15/2023 6:59 PM EDT Gender IdentityNot on fileSexual OrientationNot on file Last Filed Vital Signs Vital SignReadingTime TakenCommentsBlood Siiwpkua346/7805/28/2025 11:15 AM EST Pulse--Temperature--Respiratory Rate--Oxygen Saturation--Inhaled Oxygen Concentration--Bfhvyw95.9 kg (154 lb)05/28/2025 11:15 AM LJMRgloji768.6 cm (5' 4 )07/16/2022 12:00 PM ESTBody Mass Index26.43007/16/2022 12:00 PM EST Plan of Treatment DateTypeDepartmentCare Team (Latest Contact Info)Pukajfpyvrh35/12/2026 11:20 AM EDTOffice Visit [facility] [address] [place] [address] Kylah Lemus APRN-ANESTHESIA ASSOCIATE [address] [place], [place] [phone] 06/03/2026 11:00 AM ESTProcedure Visit MELIDA [facility]RES [address] [place] [address] Nimco Fajardo PA [address] [place] [address] Procedures Procedure NamePriorityDate/TimeAssociated DiagnosisCommentsIGP,APTIMA HPV,AGE GLDNMbdlred54/02/2025 11:00 AM EST PAP TEST, VDMFKULJQvcpspg94/02/2025 12:00 AM ESTfrom Last 3 Months Results * IGP,APTIMA HPV,AGE GDLN (05/28/2025 11:00 AM EST)ComponentValueRef RangeTest MethodAnalysis TimePerformed AtPathologist SignatureAGE GDLN ACOG TESTINGNote. TBHComment: ?? TESTS ? RESULT ??FLAG ??UNITS ?REF RANGE ??LAB ?? Clinician Provided Cytology Information ?? Source.............Vagina ?? No. of containers..01 ThinPrep Vial Age Algo ACOG Deja... ??30-65 ? 01 ?FLAG LEGEND: ?L-Low Normal,H-High Normal,LL-Alert Low,HH-Alert High <-Panic Low,>-Panic High,A-Abnormal,AA-Critical Abnormal Performed at: 01 =G ?[facility] ?? [address] [place] ??[phone] ?? Armida Arechiga MD, IGP, APTIMA HPV, RFX 16/18,45Note.TBHComment: ?? TESTS ? RESULT ??FLAG ??UNITS ?REF RANGE ??LAB DIAGNOSIS: ?02 ?? NEGATIVE FOR INTRAEPITHELIAL LESION OR MALIGNANCY. ?? CELLULAR CHANGES ASSOCIATED WITH ATROPHY ARE PRESENT. Specimen adequacy: ?02 ?? Satisfactory for evaluation. ??Endocervical component may not be ?? distinguished in cases of atrophy. Performed by: ? 02 ?? Jossie Singh, [employer] ([facility]) . ? 02 Note: ? Note ?02 ?? The Pap smear is a screening test designed to aid in the ?? detection of premalignant and malignant conditions of the ?? uterine cervix. ??It is not a diagnostic procedure and ?? should not be used as the sole means of detecting cervical ?? cancer. ??Both false-positive and false-negative reports do ?? occur. Test Methodology: ? Note ?02 ?? This liquid based ThinPrep(R) pap test was interpreted ?? using the Fooala(R) staila technologiesius(TM) Cervical Algorithm whole ?? slide imaging system. HPV Genotype Reflex ?? Note ?02 ?? Criteria not met, HPV Genotype not performed. ?FLAG LEGEND: ?L-Low Normal,H-High Normal,LL-Alert Low,HH-Alert High <-Panic Low,>-Panic High,A-Abnormal,AA-Critical Abnormal Performed at: 02 WB ?[facility] [place] ?? [address], [place] ??[address] ?? Armida Arechiga MD, HPV APTIMANegativeNegativeTBHComment: This nucleic acid amplification test detects fourteen high- risk HPV types (16,18,31,33,35,39,45,51,52,56,58,59,66,68) without differentiation. Performed at: ??=G - [address] ??[id number] Dragger Out: Armida Arechiga MD, Phone: ??[phone] Performed at: ?? - [facility] ??[id number] Dragger Out: Armida Arechiga MD, Phone: ??[phone] Specimen (Source)Anatomical Location / LateralityCollection Method / Volume Collection TimeReceived Time05/28/2025 11:00 AM EST05/28/2025 7:08 PM EST Narrative [facility] - 05/31/2025 11:12 AM EST SPATULA-ALONE VAGINA Authorizing ProviderResult TypeResult StatusAmy Sycamore PALAB BLOOD ORDERABLES Final ResultPerforming OrganizationAddressCity/State/ZIP CodePhone Number [facility] * PAP TEST, EXTERNAL (05/28/2025 12:00 AM EST) Narrative Authorizing ProviderResult TypeResult StatusFazio Nurse [facility] ObLAB CYTOLOGY ORDERABLESFinal ResultPerforming OrganizationAddressCity/State/ZIP CodePhone Number EXTERNAL LAB from Last 3 [place] [address] Care Teams Team MemberRelationshipSpecialtyStart DateEnd Clint Veras DO [address] [facility] [place] [phone] PCP - GeneralInternal Rkinzlkv14/20/23
--- OUTSIDE RECORDS SUMMARY | 2025-06-17 10:29 | XMS_ITS | Patient Health Record ---
Author Organization [facility] [place] Address [address] [place] [address] Care Team Providers Care Federal Law Clerk Name Role Phone Rito Clint GARCIA Primary Care Provider Sheron griffin Aguila Lara Unavailable [phone] Allergies Allergen (clinical drug ingredient) Drug/Non Drug Allergy documented on EMR Reaction Allergy Type Onset Date Status Darvocet H284MiaomavVoup AllergyActiveFlexerilrashDrug AllergyActiveWellbutrin rashDrug AllergyActivecaffeineCaffeineheart racingDrug AllergyActive Results Component Value Reference Range Notes CREATININE Reviewed date:10/29/2024 09:53:31 AM Interpretation: Performing Lab: Notes/Report: [facility] , Creatinine 0.71 0.55-1.02 mg/dL Estimated GFR ( Cece>60>=60 mL/min/1.73m 2Estimated GFR (Non- Leeanne>60>=60 mL/min/1.73m 2Performing Lab:see noteML - [facility] LBCT Chest w/contrast * Reviewed date:10/29/2024 07:37:48 AM Interpretation: Performing Lab: Notes/Report: CT CHEST W CON Reviewed date:10/29/2024 12:12:24 PM Interpretation: Performing Lab: Notes/Report: Source Facility: [facility]-[address] [place] [address] [place] [address] CT Scan Report Signed Patient: CANDELARIA FOSTER MR#: [id number] : 1960 Acct:[id number] Age/Sex: 64 / F ADM Date: 10/26/24 Loc: LAB Attending Dr: Aguila Lara D.O. Ordering Physician: Aguila Lara D.O. Date of Service: 10/26/24 Procedure(s): CT chest w con Accession Number(s): [id number] cc: Clint Veras D.O. [place] [address] Patient Name: CANDELARIA FOSTER MRN: [id number] date: 1960 Sex: F Assigned Patient Location: LAB Current Patient Location: LAB Accession/Order Number: [id number] Exam Date: 10/26/2024 09:33 Report Date: 10/26/2024 [...] Jr., D.O. 10/26/2024 9:36 AM Dictation Location: [place] [address] Electronically authenticated by: [id number] Y Date: 10/26/2024 09:36 Dictated By: Maximo Charlton M.D. Signed By: 10/26/2439 DD/ TD/TT: Lead Custodian: Reason For Referral No Information Medications Medication SIG (Take, Route, Frequency, Duration) Notes Start Date End Date Status Aspirin 81 MG 1 tablet Orally Once a day ActiveAtorvastatin Calcium 10 MGTAKE 1 TABLET BY MOUTH EVERY DAY Oral; Duration: 30 daysActiveIncruse Ellipta 62.5 MCG/ACT1 puff Inhalation Once a day; Duration: 30 days06/13/2024ctiveLisinopril 5 MGTAKE 1 TABLET BY MOUTH EVERY DAY Oral; Duration: 30 DaysActive Immunizations Vaccine Route Administration Date Status Comme nts SARS-COV-2 (COVID 19 Valerio 0.5mL) Robert and Robert Unknown 09/03/2020 Administered Social History Tobacco Use: Social History Observation Description Date Details (start date - stop date) Current Smoker NA - NA Tobacco Control (Standard) Question Answer Notes Tobacco use: Current every day smoker Additional Findings: Tobacco userModerate cigarette smoker (10-19 cigs/day) Problems Problem Type SNOMED Code ICD Code Onset Dates Problem Status W/U Status Risk Notes Problem Centrilobular emphysema (39976192) Centri lobular emphysema (J43.2) ActiveconfirmedProblemObstructive sleep apnea syndrome (47185394)TARA (obstructive sleep apnea) (G47.33)ActiveconfirmedProblemMental disorder caused by drug (085165141)Cigarette nicotine dependence with nicotine-induced disorder (F17.219)ActiveconfirmedProblemHilar lymphadenopathy (83852235)Hilar lymphadenopathy (R59.0)ActiveconfirmedProblemHistory of pleural effusion (207724269)History of pleural effusion (Z87.09)Activeconfirmed Vital Signs Heart Rate 69 /min 10/30/2024 Qygvvrrftek15.1 degrees Edcwnrnwog32/06/2025Respiratory Rate18 /min10/30/2024 Smietgcd79 %10/30/2024lood pressure zmzfaocxg21 mm Hg10/30/20243506Dkdktv46.5 in 10/30/2024lood pressure vjvulbkm335 mm Hg10/30/20244166Xykglj856.6 lbs10/30/2024MI 29.66 kg/m210/30/2024 Encounters Encounter Location Date Provider Diagnosis [facility]monary [facility] [place] [address] [facility] [address] 08/29/[address] [facility] Pulmonary Medicine [address] [facility] [address]/ Aguila KotharisaHilar lymphadenopathy R59.0Pulmonary Medicine [address] [facility] [address]/Natbillie [facility] [address] [facility] [address]/11/2024Natbillie [facility]Centrilobular emphysema J43.2 ; Hilar lymphadenopathy R59.0 ; Hemoptysis [...] in COPD. Ohtuvayre is a potential option, butthat is administered via nebulizer. Patient remained indecisive about what she wanted to do. Faraz discussion that smoking cessation isthe best thing she could do and her breathing could potentially improve, reducing the need for medications (which is her main concern). For now, she is going to stop Incruse and see how her breathing is. If she worsens, that suggests Incruse was improving her function. She is going to see an eye doctor regardless about her vision. 10/30/2024Hilar lymphadenopathy (ICD-10 - R59.0) CT chest shows prominent, but not lymphadenopathy, of right hilar lymph node, measuring 1cm. It hasnot changed from 10/26/2024 compared to 04/16/2024 and other imaging. Do not feel she requires further CT chest imaging with contrast to monitor. Will watch peripherally via LDCT screening (though thislacks dye and is not specific for monitoring lymph nodes). 10/23/2024Hilar lymphadenopathy (ICD-10 - R59.0)10/30/2024Hemoptysis (ICD-10 - R04.2) Denies any hemoptysis since January 2024. She was counseled on smoking cessation yet again. 10/30/2024OSA (obstructive sleep apnea) (ICD-10 - G47.33) History of TARA, was not being managed by me - was seeing Dr. Funk at [facility], but was lost to [...] about it, she should see an ENT. 10/30/2024igarette nicotine dependence with nicotine-induced disorder (ICD-10 - F17.219) And again, she was counseled on the importance of smoking cessation. Continues to smoke ~1/2-3/4ppd- many of her symptoms could improve or even resolve with smoking cessation. I voiced understandingit is difficult to quit as it is addicting, but if she wants to avoid further worsening of dyspnea and other complications, she needs to quit. She did not request any cessation aids or treatment. LDCT will be due 10/2025. [facility] malignant neoplasm of respiratory [...] smoking cessation/continued tobacco abstinence. LDCT due 10/2025. Plan Of Treatment No Information Insurance Providers Payer Name Payer Address Payer Phone Subscriber Number Group Number Insured Name Patient Relationship to Insured Coverage Start Date Coverage End Date [place] [address] [place] [address] [id number] Fatimah Foster - patient is the insuredMUTUAL OF [id number] [facility] MEDICARE SUPP CLMS DEPT [place] [phone], ConnieSelf - patient is the insured Medical (General) History Medical History History ICD Code Centrilobular emphysema J43.2 TARA (obstructive sleep apnea) G47.33 Cigarette nicotine dependence with nicot ine-induced disorder F17.219 ELADIO (generalized anxiety disorder) F41.1 HTN (hypertension) I10 Hyperlipidemia E78.5 Iron deficiency anemia D50.9 Migraine G43.909 Adenomatous colon polyp D12.6 History of pleural effusion Z87.09 Hilar lymphadenopathy R59.0 Surgical History Surgery Date(Month/Year) Cardiac Catheterization Fibebcbxzdpii31/18/2022Partial Vulvectomyhysterectomy, abdominal
--- OUTSIDE RECORDS SUMMARY | 2025-06-17 10:29 | XMS_ITS | Clinical Summary ---
Author Organization [facility] Address [address] [place] [address] Care Team Providers Care Geomagnetician Name Role Phone Unavailable Primary Care Provider Unavailabl e Social History Tobacco UseTypesPacks/DayYears UsedDateSmoking Tobacco: Never Assessed CommentsUnknownSex and Gender InformationValueDate RecordedSex Assigned at Not on fileLegal CiiNinfvm53/30/2022 12:20 AM EDTGender IdentityNot on file Sexual OrientationNot on file Plan of Treatment Not on file
--- NOTE | 2025-06-17 10:50 | MM_ITS ---
Patient Name: MALACHI FOSTER MR#: [id number] : 1960 Exam Date: 06/17/2025 Ordering Doctor: DR FORD DOYLE . RADIOLOGY REPORT PROCEDURE: MM TOMOSYNTHESIS SCREENING BI COMPARISON: MM TOMOSYNTHESIS SCREENING BI, 06/15/2024. MM TOMOSYNTHESIS SCREENING BI, 05/26/2023. MG MAMM SCREEN 3D ARNOLDO CAD, 05/11/2022. MG MAMM ARNOLDO SCRN W CAD DIG, 03/26/2013. INDICATIONS: Screening Calculator Name NCI Breast Cancer Risk Assessment Tool 5 Year Breast Cancer Risk 1.80% Lifetime Breast Cancer Risk 6.90% Personal Breast Cancer No Personal Ovarian Cancer No Treatments None Family Cancers Sister with uterine cancer at age 68; Mother with basal cell skin cancer at age 60; Mother with adenocarcinoma cancer at age 92; Grandfather-maternal with basal cell skin cancer at age 75. LOCATION: [facility] BREAST COMPOSITION: There are scattered areas of fibroglandular density. FINDINGS: DIAGNOSTIC CATEGORY 1--NEGATIVE. RIGHT BREAST: No significant suspicious finding. LEFT BREAST: No significant suspicious finding. RECOMMENDATIONS: ROUTINE MAMMOGRAM AND CLINICAL EVALUATION IN 12 MONTHS. Dictated by: Arthur Colvin MD on 06/17/2025 at 13:03 Approved by: Arthur Colvin MD on 06/17/2025 at 13:05
== END 2025-06-17 10:26 | disposition home or self-care (01) ==
LOC: MAMMO 10:25
PROVIDERS: PCP Internal Medicine; Visit Provider Obstetrics & Gynecology
DX: Z12.31 Encounter for screening mammogram for malignant neoplasm of breast (principal); Z80.8 Family history of malignant neoplasm of other organs or systems
CPT/HCPCS: 77063; 77067